=== PATIENT | female | born 1990 | race Caucasian/White ===

== ENCOUNTER → 2017-10-25 13:37 | Outpatient (CLI) | payer SELFPAY ==
--- NOTE | 2017-10-25 13:42 | STE_ITS ---
Reason For Study: Chest Pain Stress Results Protocol: Ba Protocol Maximum Predicted HR: 194 bpm Target HR: 165 bpm% Max imum Predicted HR: 98 % DurationHeart Rate Stage (mm:ss) (bpm) BP Baseline 83 120/72 Ba Protocol Stage I 3:00 14 4 124/70 Ba Protocol Stage II 3:00 16 4 134/70 Ba Protocol Stage III 3:00 19 0 138/64 Recovery 115 122/8 0 Stress Duration: 9:00 mm:ss Maximum Stress HR: 190 bpmM ETS: 10 Baseline Echocardiogram Findings Stress Echo Wall motion Data Resting WMIntermediate WMStress WM Resting Wall Motion Wall Motion Stress No regional wall motion No regional wall motion abnormalities noted. abnormalities noted. Ejection Fraction 55 %. Ejection Fraction 70 %. EKG Data Baseline ECG demonstrates normal sinus rhythm with a rate of 84 beats per minute. Normal intervals are noted. The resting blood pressure was 120/72. The patient exercised according to the regular Ba protocol for a total duration of 9 minutes. The maximum heart rate attained was 190 beats per minute. The patient exercised into stage 3 of the Ba protocol. During stress, there were no ST or T wave changes noted to suggest ischemia. At peak exercise, upsloping ST changes only were noted, which did not meet the criteria for ischemia. The peak blood pressure was 152/60. No arrhythmias noted. No clinical angina was noted. Interpretation Summary Normal resting LV systolic function. Nonstenotic valves. With stress, the LV size decreased and all segments augmented normally. The LVEF increased from 55% to 75%. Negative for ischemia at 97% of MPHR and at 10.1 METS. Good blood pressure response to exrcise Terminated due to fatigue Ordering Physician: Mick Earl MD Referring Physician: Azar Smith Performed By: Mesha Sol, ROXANA
== END ==
PROVIDERS: PCP Family Medicine; Visit Provider Family Medicine
DX: R07.9 Chest pain, unspecified (principal)
CPT/HCPCS: 93017; 93350

== ENCOUNTER 2017-12-19 11:14 | Emergency (ER) | payer MEDICAID, SELFPAY ==
[2017-12-19 11:14] VITALS: BP 127/89; PULSE 95; RESP 16; TEMP 36.7; O2SAT 97; BMI 34.5
--- NOTE | 2017-12-19 11:40 | ED.DCSUM_ITS ---
- ER Visit Summary Date of Service: 12/19/17 Chief Complaint: Dental pain [] History of Present Illness: The patient is a 27 F [presents to the emergency department with dental pain that started 4 days ago. Patient states that she has been using Tylenol, ibuprofen, naproxen which initially helped but now she is having continued pain. Patient denies any fevers. Patient does not have a dentist. Patient denies any trauma to her teeth.] Physical Examination: [HEENT-PERRLA, EOMI. Cranial nerves II through XII grossly intact. TMs clear. Mucous membranes moist. No adenopathy. Dentition- patient has broken and carried left lower first and second molars that are tender to palpation. No gingival erythema or abscess noted. No adenopathy. No facial cellulitis. Cardiovascular-regular rate and rhythm without murmur or ectopy Lungs-clear to auscultation, chest wall stable without crepitus or subcu emphysema Abdomen-normoactive bowel sounds, soft, nontender, no rebound or rigidity, no peritoneal signs. Extremities-intact ?4, normal range of motion, normal pulses, atraumatic] Test Results: [None indicated] Emergency Department Course and Treatment: [] Treatment Plan: [Patient will be started on amoxicillin and [place] for pain. Patient given dentist referrals.] Disposition: [Discharged home in stable condition] Impression: [Dental pain/dental caries] This note was generated with [employer] dictation software. It may contain incorrect words, spelling, and punctuation that were not noted in review of the chart prior to signing ED Disposition - Plan for ED Patient: Chief Complaint: Dental Referrals: Azar Smith MD [Primary Care Provider] -
--- NOTE | 2017-12-19 11:40 | ED.DEP ---
ED Disposition - Plan for ED Patient: Chief Complaint: Dental Instructions: ED Tooth Pain, ED Cavity Dental Prescriptions: Hydrocodone Bitart/Apap 5-325 [[place] 5/325] 1 - 2 tab PO Q4H PRN PRN 3 Days #12 tab PRN Reason: Pain Amoxicillin 500 mg PO TID #30 tab Referrals: Azar Smith MD [Primary Care Provider] - Additional Instructions: see a dentist
--- NOTE | 2017-12-19 11:44 | DCINST.ED_ITS ---
ED Disposition - Plan for ED Patient: Chief Complaint: Dental Instructions: ED Tooth Pain, ED Cavity Dental Prescriptions: Hydrocodone Bitart/Apap 5-325 [[place] 5/325] 1 - 2 tab PO Q4H PRN PRN 3 Days #12 tab PRN Reason: Pain Amoxicillin 500 mg PO TID #30 tab Referrals: Azar Smith MD [Primary Care Provider] - Additional Instructions: see a dentist
== END 2017-12-19 11:54 | disposition home or self-care (01) ==
PROVIDERS: Emergency Provider Emergency Medicine; PCP Family Medicine
DX: K02.9 Dental caries, unspecified (principal); K08.89 Other specified disorders of teeth and supporting structures; Z72.0 Tobacco use
CPT/HCPCS: 99282

== ENCOUNTER 2018-02-09 23:49 | Emergency (ER) | payer MEDICAID, SELFPAY ==
[2018-02-09 23:53] VITALS: BP 135/98; PULSE 94; RESP 16; TEMP 36.8; O2SAT 97; BMI 34.5
--- NOTE | 2018-02-10 00:35 | ED.VISSUMM ---
- ER Visit Summary Date of Service: 02/10/18 Chief Complaint: Right eye pain status post trauma History of Present Illness: The patient is a 27 F who states her child poked her in the eye. She complains of pain. She complains of blurred vision and photophobia. She denies history of glaucoma, diabetes or prior injury. She denies any loss of vision. Physical Examination: Blood pressure slightly elevated 133/98. Pupils equal round reactive. Extra muscle intact. There is photophobia to direct light but not consensual light. There is no floor seen in the department and limits slit-lamp examination. There is a corneal abrasion noted. There is no flare or cells no the anterior chamber. There is no subconjunctival hemorrhage noted. There is no pain with movement of the eye. There is no evidence of trauma to the lid or lashes. Test Results: No tests were obtained Emergency Department Course and Treatment: She was treated with acute aerobic ophthalmic drops for pain Treatment Plan: Eyedrops for pain and follow-up with ophthalmology if no improvement in 2-3 days Disposition: Discharged to home Impression: Corneal abrasion secondary to blunt trauma This note was generated with [employer] dictation software. It may contain incorrect words, spelling, and punctuation that were not noted in review of the chart prior to signing ED Disposition - Plan for ED Patient: Disposition: Home or Assisted Living Chief Complaint: Eye Problem Instructions: ED Eye Injury Corneal Abrasion Referrals: Azar Smith MD [Primary Care Provider] - As Needed Avinash Mcgill MD [STAFF PHYSICIAN] - 3-5 Days if not improving Additional Instructions: Instill 1 drop of pain medication right eye 4 times a day for 3-5 days for pain relief.........
--- NOTE | 2018-02-10 00:40 | ED.DCSUM_ITS ---
- ER Visit Summary Date of Service: 02/10/18 Chief Complaint: Right eye pain status post trauma History of Present Illness: The patient is a 27 F who states her child poked her in the eye. She complains of pain. She complains of blurred vision and photophobia. She denies history of glaucoma, diabetes or prior injury. She denies any loss of vision. Physical Examination: Blood pressure slightly elevated 133/98. Pupils equal round reactive. Extra muscle intact. There is photophobia to direct light but not consensual light. There is no floor seen in the department and limits slit- lamp examination. There is a corneal abrasion noted. There is no flare or cells no the anterior chamber. There is no subconjunctival hemorrhage noted. There is no pain with movement of the eye. There is no evidence of trauma to the lid or lashes. Test Results: No tests were obtained Emergency Department Course and Treatment: She was treated with acute aerobic ophthalmic drops for pain Treatment Plan: Eyedrops for pain and follow-up with ophthalmology if no improvement in 2-3 days Disposition: Discharged to home Impression: Corneal abrasion secondary to blunt trauma This note was generated with [employer] dictation software. It may contain incorrect words, spelling, and punctuation that were not noted in review of the chart prior to signing ED Disposition - Plan for ED Patient: Disposition: Home or Assisted Living Chief Complaint: Eye Problem Instructions: ED Eye Injury Corneal Abrasion Referrals: Azar Smith MD [Primary Care Provider] - As Needed Avinash Mcgill MD [STAFF PHYSICIAN] - 3-5 Days if not improving Additional Instructions: Instill 1 drop of pain medication right eye 4 times a day for 3-5 days for pain relief.........
--- NOTE | 2018-02-10 00:42 | ED.VISSUMM ---
- ER Visit Summary Date of Service: 02/10/18 Chief Complaint: [] History of Present Illness: The patient is a 27 F [] Physical Examination: [] Test Results: [] Emergency Department Course and Treatment: [] Treatment Plan: [] Disposition: [] Impression: [] This note was generated with [employer] dictation software. It may contain incorrect words, spelling, and punctuation that were not noted in review of the chart prior to signing ED Disposition - Plan for ED Patient: Disposition: Home or Assisted Living Chief Complaint: Eye Problem Instructions: ED Eye Injury Corneal Abrasion Prescriptions: Ketorolac Tromethamine [Acular] 1 drp OPHTHALMIC 4X/DAY #1 drops Referrals: Avinash Mcgill MD [STAFF PHYSICIAN] - 3-5 Days if not improving Azar Smith MD [Primary Care Provider] - As Needed Additional Instructions: Instill 1 drop of pain medication right eye 4 times a day for 3-5 days for pain relief.........
--- NOTE | 2018-02-10 00:50 | ED.DCSUM_ITS ---
- ER Visit Summary Date of Service: 02/10/18 Chief Complaint: [] History of Present Illness: The patient is a 27 F [] Physical Examination: [] Test Results: [] Emergency Department Course and Treatment: [] Treatment Plan: [] Disposition: [] Impression: [] This note was generated with [employer] dictation software. It may contain incorrect words, spelling, and punctuation that were not noted in review of the chart prior to signing ED Disposition - Plan for ED Patient: Disposition: Home or Assisted Living Chief Complaint: Eye Problem Instructions: ED Eye Injury Corneal Abrasion Prescriptions: Ketorolac Tromethamine [Acular] 1 drp OPHTHALMIC 4X/DAY #1 drops Referrals: Avinash Mcgill MD [STAFF PHYSICIAN] - 3-5 Days if not improving Azar Smith MD [Primary Care Provider] - As Needed Additional Instructions: Instill 1 drop of pain medication right eye 4 times a day for 3-5 days for pain relief.........
[2018-02-10 01:18] VITALS: RESP 18
== END 2018-02-10 01:18 | disposition home or self-care (01) ==
PROVIDERS: Emergency Provider Emergency Medicine; PCP Family Medicine
DX: S05.01XA Injury of conjunctiva and corneal abrasion without foreign body, right eye, initial encounter (principal); W50.0XXA Accidental hit or strike by another person, initial encounter; Y93.89 Activity, other specified; Y92.009 Unspecified place in unspecified non-institutional (private) residence as the place of occurrence of the external cause; Y99.8 Other external cause status
CPT/HCPCS: 99282

== ENCOUNTER 2018-04-20 09:00 | Emergency (ER) | payer MEDICAID, SELFPAY ==
[2018-04-20 09:00] VITALS: BP 122/78; PULSE 110; RESP 18; TEMP 36.6; O2SAT 98; BMI 32.9
--- NOTE | 2018-04-20 09:13 | ED.VISSUMM ---
- ER Visit Summary Date of Service: 04/20/18 Chief Complaint: Right upper jaw and right last molar pain History of Present Illness: The patient is a 27 F no significant past medical history. She has had multiple prior surgeries including C-sections, cholecystectomy and prior thoracotomy for a benign chest cavity mass. Patient had extensive dental work done by immediate dent in [place]. States the last 8 days she has had right upper jaw last molar pain. Denies any trauma. Denies any fever. No drainage. Physical Examination: Well-appearing young female accompanied by 2 small children. Vital signs are stable afebrile. HEENT exam right ear and tympanic membrane are normal. I had the patient open and close her mouth and I do not feel any popping or clicking of the right TMJ. It is not tender or swollen. She has normal opening and closing of her mouth. No malocclusion. Patient has multiple missing molars and premolars. Otherwise the teeth that she have appear to be in good condition. Multiple have feelings. The right last upper molar appears to be in good shape. There are no obvious cavities. No gum swelling. No signs of otherwise her mouth is unremarkable. The gums and soft tissues are unremarkable. Neck nontender no lymphadenopathy. Lungs are clear to auscultation. Heart regular rhythm no murmur. Otherwise exam unremarkable. Test Results: None Emergency Department Course and Treatment: Patient with 8-day history of right upper jaw dental pain. I do not see any obvious abnormality on exam. There are no signs of infection. She is already on naproxen. I did explain to her that I did not think narcotics would be a good option. Treatment Plan: She will ice to the jaw. Continue on her naproxen for pain. Follow-up with her dentist. Clinically I do not believe this to be TMJ she wants oral surgeon. Disposition: Discharge Impression: Acute right upper jaw and dental pain of uncertain etiology This note was generated with [employer] dictation software. It may contain incorrect words, spelling, and punctuation that were not noted in review of the chart prior to signing ED Disposition - Plan for ED Patient: Chief Complaint: Dental Referrals: Azar Smith MD [Primary Care Provider] -
--- NOTE | 2018-04-20 09:16 | ED.DEP ---
ED Disposition - Plan for ED Patient: Disposition: Home or Assisted Living Chief Complaint: Dental Instructions: ED Tooth Pain Referrals: Mehrdad Barahona DDS [STAFF PHYSICIAN] - Additional Instructions: Ice to your jaw. Continue naproxen and also Tylenol for pain. Next Call and follow-up with your dentist and/or an oral surgeon.
== END 2018-04-20 09:23 | disposition home or self-care (01) ==
PROVIDERS: Emergency Provider Emergency Medicine; PCP Family Medicine
DX: R68.84 Jaw pain (principal); K08.89 Other specified disorders of teeth and supporting structures; Z72.0 Tobacco use
CPT/HCPCS: 99283

== ENCOUNTER 2018-11-14 14:35 | Emergency (ER) | payer MEDICAID, SELFPAY ==
[2018-11-14 14:36] VITALS: BP 150/68; PULSE 109; RESP 16; TEMP 37; O2SAT 98; BMI 34.4
--- NOTE | 2018-11-14 15:57 | CT_ITS ---
STUDY: CT ABDOMEN AND PELVIS WITH CONTRAST REASON FOR EXAM: Female, 27 years old. Abdominal pain RADIATION DOSAGE (If Supplied By Facility): CTDIvol = ( 17.08 ) mGy, DLP = ( 1091.37 ) mGycm TECHNIQUE: Transaxial images were obtained from the dome of the diaphragm to the symphysis pubis with oral contrast. Isovue 300 100ML IV/Oral was administered. Sagittal and coronal images were reconstructed. Individualized dose optimization techniques were used for this CT. COMPARISON: None. FINDINGS: The visualized lung bases are unremarkable. The visualized portions of the heart are within normal limits. Mild intrahepatic biliary ductal dilation. Mild dilation of common bile duct with There are measuring roughly 1 cm. Nonvisualized gallbladder. Normal spleen. Normal pancreas. Normal bilateral adrenal glands. Normal right kidney. Normal left kidney. Normal visualized stomach. Normal small intestine. Normal colon. The appendix is visualized and appears normal. Normal abdominal aorta. Normal inferior vena cava. Normal retroperitoneum. Normal urinary bladder. Unremarkable uterus with IUD in the endometrium Tiny fat-containing right inguinal hernia. Normal osseous structures. CT/Abdomen/Pelvis WITH Contrast IMPRESSION: Status post cholecystectomy. Mild intrahepatic bile duct dilation and mild dilation of the common bile duct, not unusual for patient who is status post cholecystectomy. No acute findings. Electronically Signed: Musa Osullivan DO at 18:45 EDT Tel , Service support ,
--- NOTE | 2018-11-14 16:01 | ED.VISSUMM ---
- ER Visit Summary Date of Service: 11/14/18 Chief Complaint: Pelvic pain History of Present Illness: The patient is a 27 F who reports onset of pelvic cramping last evening. She states her last menstrual cycle was 1 week ago. She was seen at her GYNs office this afternoon. Pelvic exam was done along with an ultrasound. She was sent to the ED. She reported had a temperature 100.0. I have the nurse practitioner on page now to discuss her exam findings. Patient reports decreased appetite and some mild nausea. Past history significant for resting tachycardia and depression. She has had prior cholecystectomy and 4 prior C-sections. She does have an IUD. Physical Examination: Vital signs unremarkable. Patient's temperature is 98.6. Patient is resting comfortably no acute distress. Heart is regular rhythm but slightly tachycardic. Lungs sounds are clear. Abdomen is soft with tenderness in the right lower quadrant. There is no guarding or rebound at this time. Hypoactive bowel sounds are noted. Test Results: CBC was white count of 14.9 with normal differential. Chemistry studies unremarkable. test negative. Urine was checked at her [facility] [employer] [facility] office and was normal. CT abdomen pelvis with p.o. and IV contrast shows no acute findings. Emergency Department Course and Treatment: Patient was given morphine, Zofran, and IV fluids here. I did speak with Leana Reed, the nurse practitioner who saw the patient in the [facility] office. She states that the ultrasound of the pelvis done there showed a normal right ovary. Test results were discussed with patient. She will be given pain and nausea meds for home. She is to return for worsening pain or fever. Treatment Plan: [] Disposition: Discharge Impression: Abdominal pain, uncertain etiology This note was generated with [employer] dictation software. It may contain incorrect words, spelling, and punctuation that were not noted in review of the chart prior to signing ED Disposition - Plan for ED Patient: Disposition: Home or Assisted Living Instructions: ED Abdominal Pain Unkn Cause Prescriptions: Hydrocodone Bitart/Apap 5-325 [[place] 5MG-325MG] 1 tablet PO Q6H PRN PRN 3 Days #10 tablet PRN Reason: Pain Ondansetron [Zofran Odt] 4 mg PO Q8H PRN PRN #10 tablet PRN Reason: Nausea Referrals: Azar Smith MD [Primary Care Provider] - 1 Week
[2018-11-14] MEDS: 0.9% Normal Saline 1,000 ML 150 ML IV (16:20)
[2018-11-14] MEDS: Morphine 4 MG/ML Syringe IV ×2 (16:21→19:15)
[2018-11-14] MEDS: Ondansetron 4 MG/2 ML Vial IV ×2 (16:21→19:15)
[2018-11-14 16:22] VITALS: BP 134/84; PULSE 92; RESP 16; TEMP 36.8; O2SAT 97
[2018-11-14 16:44] LABS: Anion Gap 4 (5-15); BUN 11 mg/dL (7-18); BUN/Creat Ratio 19.4 RATIO (10-20); Calcium,Total 8.6 mg/dL (8.5-10.1); Chloride 109 mmol/L (98-107); Creatinine, Serum 0.57 mg/dL (0.55-1.02); EST Glomerular Filtration Rate 135 mL/min (>60); Est Glom Filt Rate - Afr Amer 163 mL/min (>60); Estimated Creatinine Clearance 117.25 ml/min; Glucose 84 mg/dL (74-106); Potassium 4.2 mmol/L (3.5-5.1); Sodium Level 137 mmol/L (136-145)
[2018-11-14 16:47] LABS: Absolute Lymphocyte Count 3.65 X10^3/ul (0.83-4.51); Absolute Neutrophil Count 10.3 X10^3/uL (2.0-7.7); Basophil# 0.04 X10^3/uL; Basophil% 0.3 % (0-1); Eosinophil# 0.12 X10^3/uL; Eosinophils% 0.8 % (0-5); Hematocrit 42.7 % (37-47); Hemoglobin 13.7 g/dl (12.0-15.0); Lymphocyte # 3.65 X10^3/ul (4.0); Lymphocyte % 24.6 % (19-41); Mean Corp Hgb Conc 32.1 g/gl (32-36); Mean Corpuscular Hgb 25.3 pg (27.0-32.0); Mean Corpuscular Volume 78.8 fL (81-99); Mean Platelet Vol. 10.6 fl (6.2-12.0); Monocyte# 0.75 X10^3/uL; Neutrophil # 10.26 X10^3/uL (2.7-7.7); Platelet Count 310 K/mm3 (150-450); RBC Distribution Width SD 47.9 fl (35.1-43.9); Red Blood Count 5.42 M/mm3 (4.2-5.4); White Blood Count 14.9 K/mm3 (4.4-11.0)
[2018-11-14 16:48] LABS: POSITIVE COUNT NO; POSITIVE DIFFERENTIAL NO; POSITIVE MORPHOLOGY NO
[2018-11-14] MEDS: proMETHazine 25 MG/ML Syringe 12.5 MG IV (17:01)
[2018-11-14 17:53] VITALS: BP 124/72; BP 127/72; PULSE 90; RESP 16; TEMP 36.7; O2SAT 98
[2018-11-14 18:11] LABS: Pregnancy, Serum, hCG Quali. NEGATIVE Negative (0-9 Nonpreg)
[2018-11-14 18:21] VITALS: BP 127/72; PULSE 90; RESP 17; TEMP 36.7; O2SAT 98
[2018-11-14 19:16] VITALS: RESP 18
--- NOTE | 2018-11-14 20:20 | DCINST.ED_ITS ---
ED Disposition - Plan for ED Patient: Disposition: Home or Assisted Living Instructions: ED Abdominal Pain Unkn Cause Prescriptions: Hydrocodone Bitart/Apap 5-325 [[place] 5MG-325MG] 1 tablet PO Q6H PRN PRN 3 Days #10 tablet PRN Reason: Pain Ondansetron [Zofran Odt] 4 mg PO Q8H PRN PRN #10 tablet PRN Reason: Nausea Referrals: Azar Smith MD [Primary Care Provider] - 1 Week
[2018-11-14 20:36] VITALS: BP 120/67; PULSE 80; RESP 16; TEMP 37; O2SAT 97
== END 2018-11-14 20:38 | disposition home or self-care (01) ==
PROVIDERS: Emergency Provider Emergency Medicine; PCP Family Medicine
DX: R10.9 Unspecified abdominal pain (principal); R11.0 Nausea; R10.2 Pelvic and perineal pain; F32.9 Major depressive disorder, single episode, unspecified; Z72.0 Tobacco use
CPT/HCPCS: 74177; 80048; 84703; 85025; 96361; 96374; 96375; 96376; 99282; J7030; Q9967; J2405

== ENCOUNTER 2019-05-08 11:39 | Emergency (ER) | payer MEDICAID, SELFPAY ==
[2019-05-08 11:40] VITALS: BP 132/72; PULSE 111; RESP 17; TEMP 36.6; O2SAT 98; BMI 37.0
--- NOTE | 2019-05-08 11:51 | US_ITS ---
STUDY: ULTRASOUND TRANSVAGINAL CLINICAL: Female, 28 years old. Vaginal bleed TECHNIQUE: Transvaginal COMPARISON: November 14, 2018 CT scan abdomen and pelvis FINDINGS: Normal uterine size measuring 194 x 5.7 x 4.2 cm in maximal craniocaudal dimension. There are no myometrial masses. An IUD present. The IUD appears to be in the lower uterine segment. When compared to the prior study this has migrated since prior study. Normal endometrial thickness measuring 9 mm. There are no endometrial masses, and there is no fluid in the endometrial cavity. Normal uterine cervix. Normal right ovary, measuring 2.8 x 2.9 x 1.7 cm. There are multiple follicles without a dominant cyst. Normal left ovary, measuring 3.2 x 2.3 x 2.3 cm. There are multiple follicles without a dominant cyst. The seen on the transabdominal imaging only. There is no free fluid in the pelvis. Polycystic ovary disease: No. US/Transvaginal Non- IMPRESSION: Interval migration of the IUD into the lower uterine segment. Electronically Signed: Estefania Lacy MD at 15:27 EDT Tel , Service support ,
[2019-05-08] MEDS: Acetaminophen 500 MG Tablet 1000 MG PO (12:05)
[2019-05-08 12:25] LABS: Internal QC Validated? YES +Cl - CLEAR BKGD; Pregnancy, Urine Negative Negative
[2019-05-08 12:30] LABS: Color, Urine Yellow (Yellow); Glucose, Dipstick Normal (Normal); Ketone-Dipstick 5 mg/dl (Negative); Leukocyte Esterase-Dipstick 25 /ul (Negative); Nitrite-Dipstick Negative (Negative); Occult Blood-Urine 250 /ul (Negative); Protein-Dipstick 30 mg/dl (Negative); Specific Gravity, Urine 1.025 (1.002-1.030); Urine Bilirubin Dipstick Negative (Negative); Urine Clarity Sl. Cloudy (Clear); Urine Urobilinogen Normal (Normal)
[2019-05-08 12:40] LABS: Bacteria 1+ /hpf (None Seen); Mucous, Urine 1+ /hpf (<or=2+); Red Blood Cells-Urine 25-50 SEEN /hpf (0-5); Squamous Epithelial Cells - UA 0-5 SEEN /hpf (5-10); White Blood Cells 0-5 SEEN /hpf (0-5)
--- NOTE | 2019-05-08 12:47 | ED.VISSUMM ---
- ER Visit Summary Date of Service: 05/08/19 Chief Complaint: Pain, vaginal bleeding History of Present Illness: The patient is a 28 F who has been having pelvic pain that started earlier today. She has sharp pain in her suprapubic area radiate. Nothing makes it better or worse. She has some spotting vaginally today which is unusual for her. Her normal menstrual cycle was on the first of this month. She has nonspecific bleeding. No vaginal discharge. No urinary symptoms. She is G5, P4 Ab1. She currently has ParaGard as well Physical Examination: Vital signs reviewed. HEENT exam unremarkable. Heart is regular rate and rhythm without murmurs. Lungs are clear to auscultation. Abdomen is soft with suprapubic tenderness to palpation. Vaginal exam is deferred.. Extremities reveal no edema. Skin exam normal. Neurologic exam normal. Test Results: White blood cell count 12.5. Trace leukocytes and blood on her urinalysis. Pelvic ultrasound reveals migration of her IUD to the lower uterine segment but otherwise is unremarkable. Emergency Department Course and Treatment: Patient was given Toradol for pain. She feels better. I am unclear the etiology of her pain. I feel she can be discharged home to follow-up with her OB. I will give her naproxen for pain at home. Treatment Plan: [] Disposition: Discharge Impression: Pelvic pain This note was generated with [employer] dictation software. It may contain incorrect words, spelling, and punctuation that were not noted in review of the chart prior to signing ED Disposition - Plan for ED Patient: Referrals: Azar Smith MD [Primary Care Provider] -
[2019-05-08 13:09] LABS: Absolute Lymphocyte Count 3.45 X10^3/uL (0.83-4.51); Absolute Neutrophil Count 8.2 X10^3/uL (2.0-7.7); Basophil# 0.06 X10^3/uL; Basophil% 0.5 % (0-1); Eosinophil# 0.13 X10^3/uL; Hematocrit 42.3 % (37-47); Hemoglobin 13.1 g/dL (12.0-15.0); Lymphocyte # 3.45 X10^3/ul (4.0); Lymphocyte % 27.5 % (19-41); Mean Corpuscular Hgb 24.5 pg (27.0-32.0); Mean Corpuscular Volume 79.2 fL (81-99); Mean Platelet Vol. 9.9 fl (6.2-12.0); Monocyte# 0.66 X10^3/uL; Monocyte% 5.3 % (0-10); NRBC Flagged by Analyzer 0 % (0-5); Neutrophil % 65.5 % (47-70); Platelet Count 319 K/mm3 (150-450); RBC Distribution Width CV 17.1 % (11.6-14.6); RBC Distribution Width SD 47.3 fl (35.1-43.9); Red Blood Count 5.34 M/mm3 (4.2-5.4); White Blood Count 12.5 K/mm3 (4.4-11.0)
[2019-05-08] MEDS: Ketorolac 30 MG/ML Syringe IV (13:30)
[2019-05-08 14:25] VITALS: BP 115/73; PULSE 78; RESP 16; O2SAT 97
--- NOTE | 2019-05-08 15:34 | ED.DEP ---
ED Disposition - Plan for ED Patient: Disposition: Home or Assisted Living Instructions: PELVIC PAIN, Unknown Cause Prescriptions: Naproxen [Naprosyn] 500 mg PO BID PRN #20 tab Prescription Printed Referrals: Azar Smith MD [Primary Care Provider] -
== END 2019-05-08 15:59 | disposition home or self-care (01) ==
PROVIDERS: Emergency Provider Emergency Medicine; PCP Family Medicine
DX: R10.2 Pelvic and perineal pain (principal); Z72.0 Tobacco use
CPT/HCPCS: 36415; 76830; 81001; 81025; 85025; 96374; 99282; A4216

== ENCOUNTER 2019-05-09 21:51 | Emergency (ER) | payer MEDICAID, SELFPAY ==
[2019-05-08 11:40] VITALS: BMI 37.0
[2019-05-09 21:51] VITALS: BP 130/87; PULSE 108; RESP 18; TEMP 37.1; O2SAT 99; BMI 36.5
--- NOTE | 2019-05-09 21:58 | CT_ITS ---
STUDY: CT ABDOMEN AND PELVIS WITH CONTRAST REASON FOR EXAM: Female, 28 years old. Right lower quadrant and pelvic pain. Nausea. Elevated white blood count. RADIATION DOSAGE (If Supplied By Facility): CTDIvol = ( 17.98 ) mGy, DLP = ( 1192.21 ) mGycm TECHNIQUE: Transaxial images were obtained from the dome of the diaphragm to the symphysis pubis with oral contrast. 100ML IV/Oral Isovue 300 was administered. Sagittal and coronal images were reconstructed. Individualized dose optimization techniques were used for this CT. COMPARISON: November 14, 2018. Pelvic ultrasound May 08, 2019. FINDINGS: Calcified right middle lobe lung nodule. The visualized portions of the heart are within normal limits. Normal liver. There are surgical clips in the gallbladder fossa consistent with a prior cholecystectomy. Normal spleen. Normal pancreas. Normal bilateral adrenal glands. Normal right kidney. Normal left kidney. Artifact from a 2 mm metallic density along the anterior margin proximal aspect of the right 12th posterior rib, unchanged and well seen on the operations research engineer view. Normal visualized stomach. Normal small intestine. Normal colon. The appendix is well visualized and appears normal. Normal abdominal aorta. Normal inferior vena cava. Normal retroperitoneum. No intra-abdominal free air. Normal urinary bladder. Normal visualized uterus. No adnexal mass is seen. Normal abdominal wall. Normal osseous structures. CT/Abdomen/Pelvis WITH Contrast IMPRESSION: No acute findings in the abdomen or pelvis. No evidence of bowel obstruction. Normal appendix. Old granulomatous disease. 2 mm metallic density adjacent to the proximal portion of the right 12th posterior rib unchanged. Electronically Signed: Pedro Roche MD at 0:29 EDT , Service support ,
--- NOTE | 2019-05-09 22:01 | ED.VIS.GEN ---
History of Present Illness Chief Complaint: Female C/O Informant: Patient Onset: Yesterday Context: Gradual Onset Timing: Continuous Current Severity: Moderate Maximum Severity: Severe Narrative: The patient presents to the emergency department with pelvic pain. Patient states that she has had pelvic pain for the past few days. She was actually seen here yesterday. That point, her ultrasound showed that her IUD had migrated. She followed up with [facility] today. She had her IUD removed. Since then, her pain is worsened. She feels that she is getting a lot of spasm and the pain has migrated to her bilateral lower quadrants. She does describe nausea. She denies any vomiting. She is otherwise been in her normal state of health. The patient has had 4 C-sections in the past. She is also had prior cholecystectomy. Prior similar symptoms: Yes Recent Illness/Hospitalization: No Past Medical History - Allergies and Home Meds Allergies/Adverse Reactions: Allergies gentamicin [Gentamicin] Allergy (Unknown, Verified 05/08/19 11:40) Other HEARING LOSS Primary Care Physician: Azar Smith MD [Primary Care Provider] - Prior records reviewed: Yes Surgical History: cholecystectomy, - - Smoking Status: Current every day smoker Review of Systems General: Denies: Chills, Fever, Sweats Eyes: Denies: Visual changes - bilaterally, Diplopia ENT: Denies: Rhinorrhea, Sore throat Cardiovascular: Denies: Chest pain, Palpitations Respiratory: Denies: Dyspnea, Cough, Dyspnea on exertion Gastrointestinal: Reports: Abdominal pain, Nausea. Denies: Vomiting, Diarrhea, Melena, Hematochezia Genitourinary: Denies: Dysuria, Hematuria, Frequency Musculoskeletal: Denies: Back pain, Extremity Pain Skin: Denies: Rash, Wounds Neurological: Denies: Headache, Weakness, Numbness Physical Exam Vital Signs/Narrative: Vital Signs Temp Pulse Resp BP Pulse Ox 05/09/19 21:51 98.8 F 108 H 18 130/87 H 99 Inital Vital Signs reviewed: Yes General: Well nourished, Well developed, No Acute Distress Head: Normocephalic, Atraumatic Eyes: Perrl, EOMI ENT: Moist mucous membranes, No rhinorrhea Neck: Supple, Nontender Cardiovascular: Regular rate, Regular rhythm, No murmurs Respiratory: No distress, CTA bilaterally, Chest nontender Abdomen: Soft, Nondistended, Normal bowel sounds, Tender. Negative for: Guarding, Rebound tenderness, Hyperactive bowel sounds Back: Nontender, Normal Inspection Extremities: Nontender, No edema Skin: Normal color, No rash Neurological: Alert, Oriented x3, Cranial nerves II-XII grossly intact, Normal Strength, Normal Sensation Psychological: Normal affect, Normal Mood Diagnostic/Tx/Re-eval Abnormal Lab Results 05/09/19 05/09/19 22:10 22:10 WBC 14.4 H RBC 5.51 H Hgb 14.0 Hct 43.8 MCV 79.5 L MCH 25.4 L MCHC 32.0 RDW Std Deviation 47.2 H RDW Coeff of Anjana 16.7 H Plt Count 356 MPV 9.9 Immature Gran % (Auto) 0.400 Neut % (Auto) 57.8 Lymph % (Auto) 35.3 Mckean % (Auto) 4.9 Eos % (Auto) 1.3 Baso % (Auto) 0.3 Absolute Neuts (auto) 8.3 H Absolute Lymphs (auto) 5.09 H Nucleated RBC % 0 Sodium 139 Potassium 3.8 Chloride 107 Carbon Dioxide 26.0 Anion Gap 6 BUN 10 Creatinine 0.66 Estim Creat Clear Calc 91.15 Est GFR (MDRD) Af Amer 137 Est GFR (MDRD) Non-Af 113 BUN/Creatinine Ratio 15.2 Glucose 81 Calcium 9.0 - Medical Decision Making Patient presents with pelvic pain and worsening right lower quadrant pain. My suspicion is that this is likely related to having her IUD removed, but I do want to rule out dangerous intra-abdominal process. Screening labs show mild leukocytosis which is chronic appearing. Patient will undergo CT imaging. Her symptoms have improved with treatment. This will be signed out to the night physician. Impression 1. Pelvic pain ED Disposition - Plan for ED Patient: Referrals: Azar Smith MD [Primary Care Provider] -
[2019-05-09] MEDS: 0.9% Normal Saline 1,000 ML 1000 ML IV (22:11)
[2019-05-09] MEDS: Ketorolac 30 MG/ML Syringe IV (22:12)
[2019-05-09] MEDS: Ondansetron 4 MG/2 ML Vial IV (22:12)
[2019-05-09] MEDS: Morphine 4 MG/ML Syringe IV (22:12)
[2019-05-09 22:34] LABS: Absolute Lymphocyte Count 5.09 X10^3/uL (0.83-4.51); Absolute Neutrophil Count 8.3 X10^3/uL (2.0-7.7); Basophil# 0.05 X10^3/uL; Basophil% 0.3 % (0-1); Eosinophil# 0.19 X10^3/uL; Eosinophils% 1.3 % (0-5); Hematocrit 43.8 % (37-47); Lymphocyte # 5.09 X10^3/ul (4.0); Lymphocyte % 35.3 % (19-41); Mean Corpuscular Hgb 25.4 pg (27.0-32.0); Mean Corpuscular Volume 79.5 fL (81-99); Mean Platelet Vol. 9.9 fl (6.2-12.0); Monocyte% 4.9 % (0-10); NRBC Flagged by Analyzer 0 % (0-5); Neutrophil # 8.32 X10^3/uL (2.7-7.7); Neutrophil % 57.8 % (47-70); POSITIVE DIFFERENTIAL YES; POSITIVE MORPHOLOGY YES; Platelet Count 356 K/mm3 (150-450); RBC Distribution Width CV 16.7 % (11.6-14.6); RBC Distribution Width SD 47.2 fl (35.1-43.9); Red Blood Count 5.51 M/mm3 (4.2-5.4); White Blood Count 14.4 K/mm3 (4.4-11.0)
[2019-05-09 22:36] LABS: Differential Indicated SCAN CRITERIA MET
[2019-05-09 22:39] LABS: Anion Gap 6 (5-15); BUN 10 mg/dL (7-18); BUN/Creat Ratio 15.2 RATIO (10-20); Chloride 107 mmol/L (98-107); Creatinine, Serum 0.66 mg/dL (0.55-1.02); EST Glomerular Filtration Rate 113 mL/min (>60); Est Glom Filt Rate - Afr Amer 137 mL/min (>60); Estimated Creatinine Clearance 91.15 ml/min; Glucose 81 mg/dL (74-106); Potassium 3.8 mmol/L (3.5-5.1); Sodium Level 139 mmol/L (136-145)
[2019-05-09] MEDS: proMETHazine 25 MG/ML Syringe 12.5 MG IV (22:41)
[2019-05-09] MEDS: Morphine 2 MG/ML Syringe IV (23:30)
[2019-05-09 23:43] LABS: Differential Comment SCANNED
[2019-05-09 23:57] LABS: Mucous, Urine 0 SEEN /hpf (<or=2+)
[2019-05-10 00:06] LABS: Color, Urine Yellow (Yellow); Glucose, Dipstick Normal (Normal); Ketone-Dipstick Negative (Negative); Leukocyte Esterase-Dipstick 25 /ul (Negative); Nitrite-Dipstick Negative (Negative); Occult Blood-Urine 250 /ul (Negative); Protein-Dipstick 15 mg/dl (Negative); Urine Bilirubin Dipstick Negative (Negative); Urine Clarity Sl. Cloudy (Clear); Urine Urobilinogen Normal (Normal)
[2019-05-10 00:10] LABS: Internal QC Validated? YES +Cl - CLEAR BKGD; Pregnancy, Urine Negative Negative
[2019-05-10 00:11] VITALS: BP 135/75; PULSE 89; RESP 16; O2SAT 98
[2019-05-10 00:11] LABS: Bacteria 1+ /hpf (None Seen); Squamous Epithelial Cells - UA 0-5 SEEN /hpf (5-10)
[2019-05-10 00:12] LABS: Red Blood Cells-Urine 5-10 SEEN /hpf (0-5); White Blood Cells 0-5 SEEN /hpf (0-5)
--- NOTE | 2019-05-10 00:42 | ED.DEP ---
ED Disposition - Plan for ED Patient: Disposition: Home or Assisted Living Diagnosis: Pelvic pain Instructions: PELVIC PAIN, Unknown Cause Referrals: Azar Smith MD [Primary Care Provider] -
== END 2019-05-10 00:52 | disposition home or self-care (01) ==
PROVIDERS: Emergency Provider Emergency Medicine; PCP Family Medicine
DX: R10.2 Pelvic and perineal pain (principal); F17.200 Nicotine dependence, unspecified, uncomplicated
CPT/HCPCS: 74177; 80048; 81001; 81025; 85025; 96361; 96374; 96375; 96376; 99283; J7030; Q9967; A4216; J2405

== ENCOUNTER → 2019-05-11 | Outpatient (CLI) | payer MEDICAID, SELFPAY ==
[2019-05-09 21:51] VITALS: BMI 36.5
[2019-05-11 14:52] LABS: Hematocrit 42.1 % (37-47); Hemoglobin 13.7 g/dL (12.0-15.0); Mean Corp Hgb Conc 32.5 g/dL (32-36); Mean Corpuscular Hgb 25.6 pg (27.0-32.0); Mean Corpuscular Volume 78.5 fL (81-99); Platelet Count 362 K/mm3 (150-450); RBC Distribution Width CV 16.4 % (11.6-14.6); RBC Distribution Width SD 46.3 fl (35.1-43.9); Red Blood Count 5.36 M/mm3 (4.2-5.4); White Blood Count 12.2 K/mm3 (4.4-11.0)
[2019-05-11 15:14] LABS: Thyroid Stim Hormone (TSH) 2.99 uIU/mL (0.358-3.74)
== END | disposition home or self-care (01) ==
LOC: LAB 14:08
PROVIDERS: PCP Family Medicine; Referring Provider Obstetrics & Gynecology; Visit Provider Obstetrics & Gynecology
DX: N93.9 Abnormal uterine and vaginal bleeding, unspecified (principal); R53.83 Other fatigue
CPT/HCPCS: 36415; 84443; 85027

== ENCOUNTER 2019-07-05 17:10 | Emergency (ER) | payer MEDICAID, SELFPAY ==
[2019-07-05 17:11] VITALS: BP 130/83; PULSE 104; RESP 16; TEMP 37.4; O2SAT 97; BMI 37.0
[2019-07-05 17:46] VITALS: BP 130/83; PULSE 104; RESP 16; TEMP 37.4; O2SAT 97
--- NOTE | 2019-07-05 17:48 | RAD_ITS ---
STUDY: X-RAY CHEST REASON FOR EXAM: Female, 28 years old. Cough TECHNIQUE: Frontal and lateral views of the chest. COMPARISON: 09/10/2017. FINDINGS: Stable surgical clips in the mediastinum. The lungs are clear and expanded. There is no demonstrated pleural abnormality. Normal size heart. Normal mediastinum and christa. Normal visualized pulmonary arteries. Normal visualized aortic arch and descending thoracic aorta. Normal visualized thoracic spine. Normal visualized ribs, clavicles, and shoulders. There is no demonstrated abnormality of the visualized soft tissue structures of the upper abdomen. RAD/Chest PA and Lateral IMPRESSION: No evidence for acute chest disease. Electronically Signed: Vinh Maurice MD at 18:02 EST , Service support ,
[2019-07-05] MEDS: Ipratropium/Albuterol Sulfate 3 ML AMPUL.NEB INHALATION (18:00)
[2019-07-05 18:05] VITALS: PULSE 96; RESP 20
[2019-07-05 18:13] VITALS: BP 130/83; PULSE 96; RESP 20; TEMP 37.4; O2SAT 97
--- NOTE | 2019-07-05 18:57 | ED.DCSUM_ITS ---
- ER Visit Summary Date of Service: 07/05/19 Chief Complaint: [Cough and shortness of breath] History of Present Illness: The patient is a 28 F [Robtz to the emergency department with a cough that started 3 to 4 days ago. Patient states that she is bringing up some sputum but she is swallowing it and does not see the color of it. She is had subjective fever at home. Patient was seen by her primary care physician yesterday and started on Tessalon Perles which seemed to help her cough. Today patient had some increasing shortness of breath and she comes in for evaluation. Patient states that before all the symptoms started she had vomiting for 3 days but that has since resolved. Patient states that all 4 of her kids at home have been sick with upper respiratory illnesses. Patient denies any chest pain. She denies recent travel or surgery.] Physical Examination: [HEENT-PERRLA, EOMI. Cranial nerves II through XII grossly intact. TMs clear. Mucous membranes moist. No adenopathy. Cardiovascular-regular rate and rhythm without murmur or ectopy Lungs-clear to auscultation, chest wall stable without crepitus or subcu emphysema. Patient did have an occasional faint expiratory wheeze noted. No accessory muscle use or retractions. Abdomen-normoactive bowel sounds, soft, nontender, no rebound or rigidity, no peritoneal signs. Extremities-intact ?4, normal range of motion, normal pulses, atraumatic] Test Results: [Chest x-ray obtained was normal.] Emergency Department Course and Treatment: [Patient was given a DuoNeb aerosol and had just minimal improvement with that.] Treatment Plan: [Patient to follow-up with her primary care physician within next 3 to 5 days. We discussed possibly starting an antibiotic however my suspicion is that her illness is likely viral and she would like to withhold from any antibiotics at this time and she will contact her primary care physician within the next several days to give an update on how she is feeling. Patient advised to return if increasing shortness of breath or conditions worsen anyway. Will be given an albuterol MDI for home.] Disposition: Discharged home in stable condition [] Impression: [Viral URI] This note was generated with [employer] software. It may contain incorrect words, spelling, and punctuation that were not noted in review of the chart prior to signing ED Disposition - Plan for ED Patient: Referrals: Azar Smith MD [Primary Care Provider] -
--- NOTE | 2019-07-05 18:59 | ED.DEP ---
ED Disposition - Plan for ED Patient: Instructions: URI, Viral, No Abx (Adult) Referrals: Azar Smith MD [Primary Care Provider] - 3-5 Days
[2019-07-05 19:10] VITALS: BP 131/89; PULSE 88; O2SAT 98
== END 2019-07-05 19:11 | disposition home or self-care (01) ==
PROVIDERS: Emergency Provider Emergency Medicine; PCP Family Medicine
DX: J06.9 Acute upper respiratory infection, unspecified (principal); Z72.0 Tobacco use
CPT/HCPCS: 71046; 94640; 99282

== ENCOUNTER 2019-11-19 15:57 | Emergency (ER) | payer MEDICAID, SELFPAY ==
[2019-11-19] VITALS (7 sets, daily range): BP systolic 112–139; BP diastolic 79–94; PULSE 94–112; RESP 16–19; TEMP 36.2–36.9; O2SAT 98–100; BMI 35.7
--- NOTE | 2019-11-19 16:21 | RAD_ITS ---
STUDY: X-RAY CHEST REASON FOR EXAM: Female, 28 years old. COUGH FEVER, SHORTNESS OF BREATH TECHNIQUE: Single AP portable view of the chest. COMPARISON: Prior study of 07/05/2019 FINDINGS: Surgical clips are seen in the mediastinum. The lungs are clear and expanded. There is no demonstrated pleural abnormality. Normal size heart. Normal mediastinum and christa. Normal visualized pulmonary arteries. Normal visualized aortic arch and descending thoracic aorta. Normal visualized thoracic spine. Normal visualized ribs, clavicles, and shoulders. There is no demonstrated abnormality of the visualized soft tissue structures of the upper abdomen. RAD/Chest 1 View (Portable) IMPRESSION: No acute cardiopulmonary disease process is seen. Chest findings are stable in the interval. Electronically Signed: Rene Vee MD at 16:47 EDT , Service support ,
--- NOTE | 2019-11-19 16:21 | EKG12_ITS ---
Test Reason : Blood Pressure : / mmHG Vent. Rate : 100 BPM Atrial Rate : 100 BPM P-R Int : 146 ms QRS Dur : 078 ms QT Int : 356 ms P-R-T Axes : 011 -02 006 degrees QTc Int : 459 ms Normal sinus rhythm Inferior infarct , age undetermined Cannot rule out Anterior infarct , age undetermined Abnormal ECG Confirmed by LEORA CANDELARIA, WALESKA ([id number]), editor school photograph JOHNNA GALINDO ([id number]) on 11/20/2019 1:38:07 PM Referred By: ABELARDO Confirmed By:WALESKA COREY MD
--- NOTE | 2019-11-19 16:45 | ED.DCSUM_ITS ---
- ER Visit Summary Date of Service: 11/19/19 Chief Complaint: Chest pain History of Present Illness: The patient is a 28 F who presents with chest pain that began today. Patient states the pain is sharp. Patient states the pain is localized to the left chest and radiates into her back. Patient states this is worse with exertion. Patient admits to some shortness of breath and cough. Patient states she had a temperature of 100.8 today. Patient states she took Tylenol prior to arrival. Patient admits to a sore throat. Patient states several family members have been having cough and fever at home. Physical Examination: Vital signs are stable except for mild tachycardia of 112. Patient is afebrile. Patient is in no acute distress. Oral mucosa is pink and moist. Neck is supple. Trachea is midline. There is no JVD noted. Heart was regular rate and rhythm. Lungs are clear and equal bilaterally. Abdomen is soft. Bowel sounds are normal. There is no tenderness. There is no rebound or guarding noted. Skin is warm dry. Cranial nerves II through XII are intact. There are no focal motor or sensory deficits noted. Extremities are intact. There is no calf tenderness or edema. Test Results: EKG showed normal sinus rhythm with a rate of 100. There are no acute ST or T wave changes. This was unchanged compared to previous EKG dated 09/10/2017. Portable chest x-ray was obtained. There is no acute cardiopulmonary process. CBC shows a mild leukocytosis of 15.2. Comprehensive metabolic profile was normal. Troponin was less than 0.015. Emergency Department Course and Treatment: Patient was given injection of Toradol and Zofran here. Patient still complained of persistent pain. Patient was given 1 dose of Verner here. Patient was instructed to drink plenty of fluids and get plenty of rest. Patient was instructed to self quarantine for 2 weeks. Patient was instructed to follow-up with her primary care physician in 5 to 7 days. Patient understood and was agreeable with the plan. All questions were answered. Disposition: Discharge home Impression: Viral upper respiratory infection This note was generated with [employer] software. It may contain incorrect words, spelling, and punctuation that were not noted in review of the chart prior to signing ED Disposition - Plan for ED Patient: Disposition: Home or Assisted Living Diagnosis: Viral upper respiratory infection Instructions: ED Upper Resp Infec No Abx Tx Referrals: [place],Azar, MD [Primary Care Provider] - 5-7 Days
[2019-11-19 16:56] LABS: Absolute Neutrophil Count 10.2 X10^3/uL (2.0-7.7); Basophil# 0.05 X10^3/uL; Basophil% 0.3 % (0-1); Eosinophil# 0.11 X10^3/uL; Eosinophils% 0.7 % (0-5); Hematocrit 42.2 % (37-47); Hemoglobin 13.9 g/dL (12.0-15.0); Mean Corp Hgb Conc 32.9 g/dL (32-36); Mean Corpuscular Hgb 25.6 pg (27.0-32.0); Mean Corpuscular Volume 77.7 fL (81-99); Mean Platelet Vol. 9.5 fl (6.2-12.0); Monocyte# 0.68 X10^3/uL; Monocyte% 4.5 % (0-10); NRBC Flagged by Analyzer 0 % (0-5); Neutrophil % 67.2 % (47-70); Platelet Count 327 K/mm3 (150-450); RBC Distribution Width CV 16.7 % (11.6-14.6); Red Blood Count 5.43 M/mm3 (4.2-5.4); White Blood Count 15.2 K/mm3 (4.4-11.0)
[2019-11-19 17:16] LABS: AST(SGOT) 19 U/L (15-37); Alanine Aminotransfer ALT/SGPT 22 U/L (13-56); Albumin, Serum 3.7 g/dL (3.2-5.0); Alkaline Phosphatase 99 U/L (45-117); Anion Gap 7 (5-15); BUN 10 mg/dL (7-18); BUN/Creat Ratio 15.5 RATIO (10-20); Chloride 108 mmol/L (98-107); Creatinine, Serum 0.65 mg/dL (0.55-1.02); EST Glomerular Filtration Rate 115 mL/min (>60); Est Glom Filt Rate - Afr Amer 140 mL/min (>60); Estimated Creatinine Clearance 92.56 ml/min; Globulin 3.7 g/dL (2.2-4.2); Glucose 91 mg/dL (74-106); Protein, Total 7.4 g/dL (6.4-8.2); Sodium Level 139 mmol/L (136-145)
[2019-11-19] MEDS: Ondansetron 4 MG/2 ML Vial IV (17:19)
[2019-11-19] MEDS: Ketorolac 30 MG/ML Syringe IV (17:21)
[2019-11-19] MEDS: HYDROcodone Bitartrate/Apap 5/325 Tablet PO (18:27)
== END 2019-11-19 18:48 | disposition home or self-care (01) ==
PROVIDERS: Emergency Provider Emergency Medicine; PCP Family Medicine
DX: J06.9 Acute upper respiratory infection, unspecified (principal); E66.9 Obesity, unspecified; Z72.0 Tobacco use
CPT/HCPCS: 71045; 80053; 84484; 85025; 87804; 87807; 93005; 96374; 96375; 99285; A4216; J2405

== ENCOUNTER 2019-12-18 23:44 | Emergency (ER) | payer MEDICAID, SELFPAY ==
[2019-11-19 15:58] VITALS: BMI 35.7
[2019-12-18 23:44] VITALS: BP 141/95; PULSE 110; RESP 18; TEMP 36.7; O2SAT 97; BMI 36.1
--- NOTE | 2019-12-19 00:02 | ED.VISSUMM ---
- ER Visit Summary Date of Service: 12/19/19 Chief Complaint: Dental pain History of Present Illness: The patient is a 29 F with left maxillary dental pain for 3 days. The patient was started on amoxicillin. She is taking naproxen and Tylenol, but her pain is still severe. No trouble speaking, breathing, or swallowing. Physical Examination: Afebrile and vital signs unremarkable. There is no obvious abscess. No tongue elevation. No trismus. Airway intact. No lymphadenopathy or meningeal signs. Skin normal. Test Results: None indicated Emergency Department Course and Treatment: Continue antibiotics. I advised her it will take a few days for them to start working. I did check her prescription report. She is not currently on narcotics. I will prescribe a short course of pain medicine. Follow-up with dental. Treatment Plan: As above Disposition: Discharge Impression: Dental pain This note was generated with COM DEV dictation software. It may contain incorrect words, spelling, and punctuation that were not noted in review of the chart prior to signing ED Disposition - Plan for ED Patient: Referrals: Azar Smith MD [Primary Care Provider] -
--- NOTE | 2019-12-19 00:03 | ED.DEP ---
ED Disposition - Plan for ED Patient: Instructions: ED Tooth Pain Prescriptions: Hydrocodone Bitart/Apap 5-325 [Ranchita 5MG-325MG] 1 tab PO Q6H PRN PRN 3 Days #10 tab PRN Reason: Pain Prescription Printed Referrals: Azar Smith MD [Primary Care Provider] -
[2019-12-19] MEDS: HYDROcodone Bitartrate/Apap 5/325 Tablet PO (00:05)
== END 2019-12-19 00:12 | disposition home or self-care (01) ==
LOC: ED 12-19 00:11
PROVIDERS: Emergency Provider Emergency Medicine; PCP Family Medicine
DX: K08.89 Other specified disorders of teeth and supporting structures (principal); Z79.1 Long term (current) use of non-steroidal anti-inflammatories (NSAID); Z79.2 Long term (current) use of antibiotics; Z72.0 Tobacco use
CPT/HCPCS: 99283

== ENCOUNTER 2019-12-26 19:18 | Emergency (ER) | payer MEDICAID, SELFPAY ==
[2019-12-26 19:21] VITALS: BP 149/98; PULSE 120; PULSE 126; RESP 17; RESP 18; TEMP 36.6; O2SAT 98; BMI 36.6
--- NOTE | 2019-12-26 21:00 | ED.DCSUM_ITS ---
History of Present Illness Chief Complaint: Dental Informant: Patient Onset: Days Context: Gradual Onset Timing: Continuous Current Severity: Moderate Maximum Severity: Severe Relieved by: Topicals Associated Symptoms: Sensitivity Narrative: Patient is a 29-year-old female with no significant past medical history prese nting with pain at the roof of her mouth. She is previously diagnosed with cellulitis and has been on a course of antibiotics as well as prednisone. She followed up again with her PCP office and was switched to clindamycin as well as another round of prednisone. She does feel like the steroids have helped the sore at her mouth. Her PCP office was concerned that she could not be seen by a dentist until the end of the month so instructed her to come to the emergency room for further evaluation and imaging as needed. Patient states she has pain when she eats or drinks denies any difficulty swallowing. She states she has had some irritation of her vagina consistent with a yeast infection from her last round of antibiotics but denies any sores. She is not take any medication besides her recent antibiotics and [id number] melatonin/Benadryl for sleep. She was prescribed fluconazole today as well. Patient denies any rash. She notes her daughter was recently diagnosed with pneumonia but denies any other sick contacts. Past Medical History - Allergies and Home Meds Allergies/Adverse Reactions: Allergies gentamicin [Gentamicin] Allergy (Unknown, Verified 12/26/19 19:18) Other HEARING LOSS Primary Care Physician: Azar Smith MD [Primary Care Provider] - Past Medical History: None Surgical History: cholecystectomy, - - Lives: With Family Smoking Status: Current every day smoker Review of Systems General: Denies: Chills, Fever, Sweats Eyes: Denies: Visual changes - bilaterally, Diplopia ENT: Reports: - - Mouth pain. Denies: Rhinorrhea, Sore throat Cardiovascular: Denies: Chest pain, Palpitations Respiratory: Denies: Dyspnea, Cough, Dyspnea on exertion Gastrointestinal: Denies: Abdominal pain, Nausea, Vomiting, Diarrhea, Melena, Hematochezia Genitourinary: Reports: - - Vaginal irritation. Denies: Dysuria, Hematuria, Frequency Musculoskeletal: Denies: Back pain, Extremity Pain Skin: Denies: Rash, Wounds Neurological: Denies: Headache, Weakness, Numbness Physical Exam Vital Signs/Narrative: Vital Signs Temp Pulse Resp BP Pulse Ox 12/26/19 19:21 97.9 F 126 H 18 149/98 H 98 Inital Vital Signs reviewed: Yes General: Well nourished, Well developed Head: Normocephalic, Atraumatic ENT: Moist mucous membranes, No rhinorrhea, TM's clear Mouth/Throat: Normal inspection lips/gums, Normal oral mucosa, No focal abscess, Apthous ulcer - Hard palate. Negative for: Dental abscess, Focal gum swelling, Gingivitis, Tenderness on tooth percussion, Widespread dental decay Neck: Supple, No lymphadenopathy, Nontender, No JVD Cardiovascular: Regular rhythm, No murmurs, Tachycardia Respiratory: No distress, CTA bilaterally, Chest nontender Abdomen: Soft, Nontender, Nondistended, Normal bowel sounds : Thick white vaginal discharge, no ulcerations/lesions of the vaginal mucosa Back: Nontender, Normal Inspection Extremities: Nontender, No edema Skin: Normal color, No rash, - - Negative Nikolsky sign, no petechial rash. Negative for: Rash Neurological: Alert, Oriented x3, Cranial nerves II-XII grossly intact, Normal Strength, Normal Sensation Psychological: Normal affect Diagnostic/Tx/Re-eval - Medical Decision Making She is evaluated for pain and sore in the roof of her mouth. She was seen at her PCP office today and there was concerned that she had cellulitis of her mouth. As she could not follow-up with dentist today she was sent to the emergency room for further evaluation. On physical exam her sore appears to be more of an ulceration consistent with either herpangina or an aphthous ulcer. He does not appear cellulitic and there is not appear to be any associated abscess. I do not think facial imaging would be indicated at this time. I did do a pelvic exam to make sure patient did not have any lesions of her vaginal mucosa in case this could be an atypical presentation of Mesfin Lalo syndrome. Do not see any vaginal lesions and her exam was consistent with yeast vaginitis. Patient was prescribed fluconazole earlier today for this. I did discuss the case with PCP on-call, Dr. Mooney who was agreeable with discharge home and starting her on Magic mouthwash. Patient is given a dental referral sheet. She does have a dental appointment at the end of this month. She is instructed to follow-up with her PCP sooner if her symptoms worsen. She will continue her clindamycin and steroids as prescribed as well. Patient is tachycardic in the emergency room. She attributes this to being on steroids. She states she feels hot and this happens when she takes prednisone. She is otherwise well-appearing I do not think this requires further intervention at this time. She has no associated chest pain or shortness of breath. She is afebrile. Patient is counseled on signs and symptoms requiring return to the emergency room. Patient verbalizes agreement and understand this plan. Patient discharged home in stable and improved condition. ED Disposition - Plan for ED Patient: Disposition: Home or Assisted Living Diagnosis: Mouth ulceration Instructions: ED Canker Sore Prescriptions: Magic Mouth Wash 10 ml PO TID PRN #120 ml PRN Reason: mouth pain Prescription Printed Referrals: Azar Smith MD [Primary Care Provider] - Additional Instructions: please call your primary care doctor tomorrow to arrange close follow up and monitoring of your mouth. Please continue the medications prebviously prescribed. Return to the ED if you develop worsening lesions/sores or develop any new rash or vaginal sores.
== END 2019-12-26 21:16 | disposition home or self-care (01) ==
PROVIDERS: Emergency Provider Emergency Medicine; PCP Family Medicine
DX: K13.79 Other lesions of oral mucosa (principal); B37.3 Candidiasis of vulva and vagina; F17.200 Nicotine dependence, unspecified, uncomplicated; Z79.2 Long term (current) use of antibiotics; Z79.52 Long term (current) use of systemic steroids
CPT/HCPCS: 99282

== ENCOUNTER 2020-02-09 22:25 | Emergency (ER) | payer MEDICAID, SELFPAY ==
[2020-02-09 22:26] VITALS: BP 123/82; PULSE 126; RESP 22; TEMP 37.2; O2SAT 97; BMI 36.3
--- NOTE | 2020-02-09 22:39 | EKG12_ITS ---
Test Reason : CP Blood Pressure : / mmHG Vent. Rate : 115 BPM Atrial Rate : 115 BPM P-R Int : 144 ms QRS Dur : 078 ms QT Int : 332 ms P-R-T Axes : 022 -11 006 degrees QTc Int : 459 ms Sinus tachycardia Inferior infarct , age undetermined Possible Anterior infarct , age undetermined Abnormal ECG Confirmed by LEORA CANDELARIA, WALESKA ([id number]), food expeditor KRZYSZTOF PERALTA ([id number]) on 02/13/2020 10:46:17 AM Referred By: DR GOMEZ Confirmed By:WALESKA COREY MD
--- NOTE | 2020-02-09 22:40 | ED.VIS.GEN ---
History of Present Illness Chief Complaint: Chest Pain Informant: Patient Onset: Yesterday Context: Gradual Onset Timing: Waxes and wanes Current Severity: Moderate Maximum Severity: Moderate Narrative: Patient presents secondary to chest pain. She states pain starts just below her left scapula and wraps around her chest into the left anterior chest. She does not notice shortness of breath but states her partner was commenting that she was breathing very rapidly. She denies cough or congestion. She denies fever. She denies DVT or PE risk factors. - Past Medical History (1) Gastritis Status: Chronic Past Medical History - Allergies and Home Meds Allergies/Adverse Reactions: Allergies gentamicin [Gentamicin] Allergy (Unknown, Verified 02/09/20 22:32) Other HEARING LOSS Primary Care Physician: Azar Smith MD [Primary Care Provider] - Prior records reviewed: Yes Surgical History: cholecystectomy, - - Lives: With Family Smoking Status: Current every day smoker Review of Systems General: Denies: Chills, Fever Eyes: Denies: Visual changes - bilaterally ENT: Denies: Bilateral ear pain Cardiovascular: Reports: Chest pain Respiratory: Denies: Dyspnea, Cough Gastrointestinal: Denies: Abdominal pain, Nausea, Vomiting, Diarrhea Genitourinary: Denies: Dysuria Musculoskeletal: Denies: Swelling, Extremity Pain Skin: Denies: Rash Neurological: Denies: Headache Hematologic: Denies: Easy bruising, Easy bleeding Allergy: Denies: Uticaria Physical Exam Vital Signs/Narrative: Vital Signs Temp Pulse Resp BP Pulse Ox 02/09/20 22:26 99 F 126 H 22 H 123/82 H 97 Inital Vital Signs reviewed: Yes General: Well nourished, Well developed Head: Normocephalic ENT: Moist mucous membranes Neck: Supple Cardiovascular: Regular rhythm, Tachycardia Respiratory: No distress, CTA bilaterally Abdomen: Soft, Nontender Extremities: Nontender, No edema Skin: Normal color, No rash Neurological: Alert, Oriented x3 Psychological: Normal affect Diagnostic/Tx/Re-eval Impressions Chest X-Ray 02/09/20 23:25 IMPRESSION: No acute cardiopulmonary findings or changes. Negative for new consolidation, focal atelectasis, pleural effusion or cardiomegaly. Electronically Signed: Tracee Hernandez MD at 23:43 EDT , Service support , 02/09/20 23:25 Chest 1 View (Portable) [RAD] Stat Laboratory Results 02/09/20 02/09/20 02/09/20 22:30 22:30 22:30 WBC 17.5 H RBC 5.41 H Hgb 13.8 Hct 43.5 MCV 80.4 L MCH 25.5 L MCHC 31.7 L RDW Std Deviation 46.2 H RDW Coeff of Anjana 17.1 H Plt Count 322 MPV 10.3 Immature Gran % (Auto) 0.300 Neut % (Auto) 61.2 Lymph % (Auto) 32.5 [place] % (Auto) 4.7 Eos % (Auto) 0.9 Baso % (Auto) 0.4 Absolute Neuts (auto) 10.7 H Absolute Lymphs (auto) 5.69 H Nucleated RBC % 0 D-Dimer Quant (PE/DVT) <= 0.27 Sodium 138 Potassium 3.4 L Chloride 108 H Carbon Dioxide 25.0 Anion Gap 5 BUN 9 Creatinine 0.61 Estim Creat Clear Calc 102.69 Est GFR (MDRD) Af Amer 149 Est GFR (MDRD) Non-Af 123 BUN/Creatinine Ratio 14.8 Glucose 88 Calcium 9.3 Troponin I < 0.015 Serum , Qual Urine Color Urine Clarity Urine pH Ur Specific [place] Urine Protein Urine Glucose (UA) Urine Ketones Urine Occult Blood Urine Nitrite Urine Bilirubin Urine Urobilinogen Ur Leukocyte Esterase Urine RBC Urine WBC Ur Squamous Epith Cells Urine Bacteria Urine Mucus 02/09/20 02/09/20 22:30 23:05 WBC RBC Hgb Hct MCV MCH MCHC RDW Std Deviation RDW Coeff of Anjana Plt Count MPV Immature Gran % (Auto) Neut % (Auto) Lymph % (Auto) [place] % (Auto) Eos % (Auto) Baso % (Auto) Absolute Neuts (auto) Absolute Lymphs (auto) Nucleated RBC % D-Dimer Quant (PE/DVT) Sodium Potassium Chloride Carbon Dioxide Anion Gap BUN Creatinine Estim Creat Clear Calc Est GFR (MDRD) Af Amer Est GFR (MDRD) Non-Af BUN/Creatinine Ratio Glucose Calcium Troponin I Serum , Qual NEGATIVE Urine Color Yellow Urine Clarity Sl. Cloudy Urine pH 7.0 Ur Specific [place] 1.015 Urine Protein Negative Urine Glucose (UA) Normal Urine Ketones Negative Urine Occult Blood Negative Urine Nitrite Negative Urine Bilirubin Negative Urine Urobilinogen Normal Ur Leukocyte Esterase Negative Urine RBC 0 SEEN Urine WBC 0 SEEN Ur Squamous Epith Cells 10-25 SEEN Urine Bacteria 0 SEEN Urine Mucus 0 SEEN - EKG Initial EKG Interpretation: Sinus Tachycardia - Sinus tach at 115. No acute ischemia. - Medical Decision Making Patient was given morphine and Zofran for pain. After completion of labs she was given 40 mEq of potassium orally. Test results are discussed with the patient. She does have a leukocytosis and in reviewing her prior labs has had an elevated white count on majority of her visits. Patient states this has been mentioned to her but really no follow-up has been provided. I will refer her to hematology for follow-up. Patient was reassured with normal cardiac and pulmonary testing at this time. ED Disposition - Plan for ED Patient: Disposition: Home or Assisted Living Diagnosis: Atypical chest pain Instructions: ED Chest Pain Atypical Unkn Cause Referrals: Azar Smith MD [Primary Care Provider] - Colin Gilbert MD [NON-STAFF] -
[2020-02-09 23:11] LABS: Bacteria 0 SEEN /hpf (None Seen); Mucous, Urine 0 SEEN /hpf (<or=2+); Red Blood Cells-Urine 0 SEEN /hpf (0-5); White Blood Cells 0 SEEN /hpf (0-5)
[2020-02-09 23:12] LABS: Internal QC Validated? YES +Cl - CLEAR BKGD; Pregnancy, Serum, hCG Quali. NEGATIVE Negative
[2020-02-09] MEDS: 0.9% Normal Saline 1,000 ML 150 ML IV (23:13)
[2020-02-09] MEDS: Ondansetron 4 MG/2 ML Vial IV (23:13)
[2020-02-09] MEDS: Morphine 4 MG/ML Syringe IV (23:13)
[2020-02-09 23:14] LABS: Color, Urine Yellow (Yellow); Glucose, Dipstick Normal (Normal); Ketone-Dipstick Negative (Negative); Leukocyte Esterase-Dipstick Negative /ul (Negative); Nitrite-Dipstick Negative (Negative); Occult Blood-Urine Negative /ul (Negative); Protein-Dipstick Negative (Negative); Specific Gravity, Urine 1.015 (1.002-1.030); Urine Bilirubin Dipstick Negative (Negative); Urine Clarity Sl. Cloudy (Clear); Urine Urobilinogen Normal (Normal)
[2020-02-09 23:19] LABS: Squamous Epithelial Cells - UA 10-25 SEEN /hpf (5-10)
[2020-02-09 23:20] LABS: Anion Gap 5 (5-15); BUN 9 mg/dL (7-18); BUN/Creat Ratio 14.8 RATIO (10-20); Calcium,Total 9.3 mg/dL (8.5-10.1); Chloride 108 mmol/L (98-107); Creatinine, Serum 0.61 mg/dL (0.55-1.02); EST Glomerular Filtration Rate 123 mL/min (>60); Est Glom Filt Rate - Afr Amer 149 mL/min (>60); Estimated Creatinine Clearance 102.69 ml/min; Glucose 88 mg/dL (74-106); Potassium 3.4 mmol/L (3.5-5.1); Sodium Level 138 mmol/L (136-145)
--- NOTE | 2020-02-09 23:25 | RAD_ITS ---
STUDY: X-RAY CHEST REASON FOR EXAM: Female, 29 years old. LEFT SIDED CHEST AND SHOULDER PAIN FOR 2 DAYS TECHNIQUE: 1 view COMPARISON: Prior chest radiograph November 19, 2019 FINDINGS: Small surgical ching present in the anterior mediastinum and one alongside the right heart border. The lungs are clear and expanded. There is no demonstrated pleural abnormality. Normal size heart. Normal mediastinum and christa. Normal visualized pulmonary arteries. Normal visualized aortic arch and descending thoracic aorta. Normal visualized thoracic spine. Normal visualized ribs, clavicles, and shoulders. There is no demonstrated abnormality of the visualized soft tissue structures of the upper abdomen. RAD/Chest 1 View (Portable) IMPRESSION: No acute cardiopulmonary findings or changes. Negative for new consolidation, focal atelectasis, pleural effusion or cardiomegaly. Electronically Signed: Tracee Hernandez MD at 23:43 EDT , Service support ,
[2020-02-10 00:12] LABS: D-Dimer Quantitative (DVT/PE) <= 0.27 FEU/ug/m (0.27-0.49)
[2020-02-10 00:25] LABS: Absolute Lymphocyte Count 5.69 X10^3/uL (0.83-4.51); Absolute Neutrophil Count 10.7 X10^3/uL (2.0-7.7); Basophil# 0.07 X10^3/uL; Basophil% 0.4 % (0-1); Differential Indicated SCAN CRITERIA MET; Eosinophil# 0.15 X10^3/uL; Eosinophils% 0.9 % (0-5); Hematocrit 43.5 % (37-47); Hemoglobin 13.8 g/dL (12.0-15.0); Lymphocyte # 5.69 X10^3/ul (4.0); Lymphocyte % 32.5 % (19-41); Mean Corp Hgb Conc 31.7 g/dL (32-36); Mean Corpuscular Hgb 25.5 pg (27.0-32.0); Mean Corpuscular Volume 80.4 fL (81-99); Mean Platelet Vol. 10.3 fl (6.2-12.0); Monocyte# 0.82 X10^3/uL; Monocyte% 4.7 % (0-10); NRBC Flagged by Analyzer 0 % (0-5); Neutrophil % 61.2 % (47-70); POSITIVE DIFFERENTIAL YES; Platelet Count 322 K/mm3 (150-450); RBC Distribution Width CV 17.1 % (11.6-14.6); RBC Distribution Width SD 46.2 fl (35.1-43.9); Red Blood Count 5.41 M/mm3 (4.2-5.4); White Blood Count 17.5 K/mm3 (4.4-11.0)
[2020-02-10 00:32] LABS: Atypical Lymphocyte RARE %
[2020-02-10 00:33] LABS: Differential Comment SCANNED
[2020-02-10 00:41] VITALS: BP 124/76; PULSE 97; RESP 18; O2SAT 98
== END 2020-02-10 00:47 | disposition home or self-care (01) ==
PROVIDERS: Emergency Provider Emergency Medicine; PCP Family Medicine
DX: R07.89 Other chest pain (principal); F17.200 Nicotine dependence, unspecified, uncomplicated
CPT/HCPCS: 71045; 80048; 81001; 84484; 84703; 85025; 85379; 93005; 96361; 96374; 96375; 99283; J7030; A4216; J2405

== ENCOUNTER 2020-02-17 22:56 | Emergency (ER) | payer MEDICAID, SELFPAY ==
[2020-02-14 10:33] VITALS: BMI 35.6
[2020-02-17 22:57] VITALS: BP 130/96; PULSE 121; RESP 15; TEMP 36.4; O2SAT 100; BMI 35.2
--- NOTE | 2020-02-17 23:08 | CT_ITS ---
STUDY: CT ABDOMEN AND PELVIS WITH CONTRAST REASON FOR EXAM: Female, 29 years old. LEFT SIDE CP WITH DYSPNEA, 16 POUND WEIGHT LOSS, HX C-SECTIONS, GB, ARRYTHMIA, RADIATION DOSAGE (If Supplied By Facility): CTDIvol = ( 11.74 ) mGy, DLP = ( 1514.41 ) mGycm TECHNIQUE: Transaxial images were obtained from the dome of the diaphragm to the symphysis pubis without oral contrast. IV 100mL Isovue-370 was administered. Sagittal and coronal images were reconstructed. Individualized dose optimization techniques were used for this CT. COMPARISON: May 09, 2019 CT scan abdomen and pelvis FINDINGS: There is a relatively stable focus of scarring within the right middle lobe. The visualized portions of the heart are within normal limits. There is mild intra and extrahepatic ductal dilatation. The common duct measures 9.8 mm. Cyst is stable when compared to prior study. There are surgical clips in the gallbladder fossa consistent with a prior cholecystectomy. Normal spleen. Normal pancreas. Normal bilateral adrenal glands. Normal right kidney. Normal left kidney. Normal visualized stomach. There is a tortuous appearance of the small bowel. There is mild wall thickening more apparent than the prior study. There is a moderate amount of gas and stool visualized within the colon. There are a few diverticula present without visualized diverticulitis. The appendix is visualized and appears normal. Normal abdominal aorta. Normal inferior vena cava. There are small subcentimeter mesenteric lymph nodes similar to the prior study. Normal urinary bladder. Normal visualized uterus. There is a persistent left ovarian cyst or follicle measuring 2.1 x 1.6 cm similar to the prior study. There are phleboliths in the pelvis. Normal abdominal wall. The level of L4-L5 there is a broad disc bulge without significant neural foramina narrowing central stenosis. CT/Abdomen/Pelvis W IV Cont ONLY IMPRESSION: There is a tortuous mildly thickened appearance of the small bowel in the left upper quadrant suggestive of mild enteritis. This accompanies small stable appearing mesenteric lymph nodes measuring up to 1 cm. Status post cholecystectomy persistent mild intra and extrahepatic duct dilatation. Small left ovarian cyst. Electronically Signed: Estefania Lacy MD at 0:37 EDT Tel , Service support ,
--- NOTE | 2020-02-17 23:08 | CT_ITS ---
STUDY: CTA CHEST REASON FOR EXAM: Female, 29 years old. INT LEFT SIDE CP WITH DYSPNEA, 16 POUND WEIGHT LOSS, HX C-SECTIONS, GB, ARRYTHMIA RADIATION DOSAGE (If Supplied By Facility): CTDIvol = ( 11.74 ) mGy, DLP = ( 1514.41 ) mGycm TECHNIQUE: The examination was performed with the intravenous administration of IV 100mL Isovue-370. Post-processing of the angiographic images was performed, with multiplanar reformation and 3D reconstruction. Individualized dose optimization techniques were used for this CT. COMPARISON: Chest x-ray 02/09/2020, CT chest January 15, 2013 FINDINGS: Normal enhancement of the main pulmonary artery and right and left pulmonary arteries. Normal enhancement of the bilateral peripheral pulmonary arteries. There is no demonstrated pulmonary embolism. Normal thoracic aorta and visualized great vessels. There is no demonstrated aortic dissection. Normal heart and pericardium. There is a prominent appearance of the pericardial fat. There is a stable lymph node adjacent to the aortic arch measuring 1.3 cm. Normal hilar regions. Normal visualized trachea and bronchi. The lungs are well expanded. There are a few areas of hyperlucency in the lungs suggesting probable air trapping. There is a metallic density within the pleura approximately at the level of the right side of the diaphragm. This is stable since November 14, 2018. There is a trace focus of lingular scarring stable since prior studies. There is no visualized fracture. Normal osseous structures. Normal visualized upper abdomen. CT/CTA Chest W/WO Contrast IMPRESSION: Normal CTA chest examination, without a demonstrated pulmonary embolism or arterial dissection. Postoperative change at the right lung base/pleural with a small focal metallic density. Electronically Signed: Estefania Lacy MD at 0:45 EDT Tel , Service support ,
--- NOTE | 2020-02-17 23:08 | EKG12_ITS ---
Test Reason : CP Blood Pressure : / mmHG Vent. Rate : 114 BPM Atrial Rate : 114 BPM P-R Int : 132 ms QRS Dur : 082 ms QT Int : 334 ms P-R-T Axes : 041 000 019 degrees QTc Int : 460 ms Sinus tachycardia Cannot rule out Inferior infarct , age undetermined Abnormal ECG Confirmed by ABE CANDELARIA, NORMA ([id number]), medical editor KRZYSZTOF PERALTA ([id number]) on 02/20/2020 10:57:38 AM Referred By: NICK PERRY Confirmed By:NORMA FISH MD
--- NOTE | 2020-02-17 23:16 | ED.VIS.GEN ---
History of Present Illness Chief Complaint: Chest Pain Informant: Patient Onset: Days Context: Gradual Onset Timing: Intermittent Current Severity: Moderate Maximum Severity: Moderate Narrative: The patient is a 29-year-old female that presents to the emergency department with intermittent left-sided chest pain and dyspnea. Patient was seen here about 7 days ago for the same complaints. At that time, she had unremarkable work-up. D-dimer was negative. Chest x-ray showed no volume overload. Cardiac enzymes were negative. She was found to have leukocytosis and was referred to outpatient oncology. She has seen oncology who is started work-up for leukocytosis. She states that the pain continues to come. She states sometimes is when she is eating eating, but sometimes at rest. She has had low-grade fever. She does admit to a 16 pound weight loss. Prior similar symptoms: Yes Recent Illness/Hospitalization: No Past Medical History - Allergies and Home Meds Allergies/Adverse Reactions: Allergies gentamicin [Gentamicin] Allergy (Unknown, Verified 02/17/20 23:00) Other HEARING LOSS Primary Care Physician: Azar Smith MD [Primary Care Provider] - Prior records reviewed: Yes Past Medical History: None Surgical History: cholecystectomy, - - Smoking Status: Current every day smoker Review of Systems General: Denies: Chills, Fever, Sweats Eyes: Denies: Visual changes - bilaterally, Diplopia ENT: Denies: Rhinorrhea, Sore throat Cardiovascular: Reports: Chest pain. Denies: Palpitations Respiratory: Reports: Dyspnea. Denies: Cough, Dyspnea on exertion Gastrointestinal: Denies: Abdominal pain, Nausea, Vomiting, Diarrhea, Melena, Hematochezia Genitourinary: Denies: Dysuria, Hematuria, Frequency Musculoskeletal: Denies: Back pain, Extremity Pain Skin: Denies: Rash, Wounds Neurological: Denies: Headache, Weakness, Numbness Physical Exam Vital Signs/Narrative: Vital Signs Temp Pulse Resp BP Pulse Ox 02/17/20 22:57 97.6 F L 121 H 15 130/96 H 100 Inital Vital Signs reviewed: Yes General: Well nourished, Well developed, No Acute Distress Head: Normocephalic, Atraumatic Eyes: Perrl, EOMI ENT: Moist mucous membranes, No rhinorrhea Neck: Supple, Nontender Cardiovascular: Regular rate, Regular rhythm, No murmurs Respiratory: No distress, CTA bilaterally, Chest nontender Abdomen: Soft, Nontender, Nondistended, Normal bowel sounds Back: Nontender, Normal Inspection Extremities: Nontender, No edema Skin: Normal color, No rash Neurological: Alert, Oriented x3, Cranial nerves II-XII grossly intact, Normal Strength, Normal Sensation Psychological: Normal affect, Normal Mood Diagnostic/Tx/Re-eval Clinical Impression(s) from Imaging Studies Abdomen/Pelvis CT 02/17/20 23:08 IMPRESSION: There is a tortuous mildly thickened appearance of the small bowel in the left upper quadrant suggestive of mild enteritis. This accompanies small stable appearing mesenteric lymph nodes measuring up to 1 cm. Status post cholecystectomy persistent mild intra and extrahepatic duct dilatation. Small left ovarian cyst. Electronically Signed: Estefania Lacy MD at 0:37 EDT Tel , Service support , Chest CTA 02/17/20 23:08 IMPRESSION: Normal CTA chest examination, without a demonstrated pulmonary embolism or arterial dissection. Postoperative change at the right lung base/pleural with a small focal metallic density. Electronically Signed: Estefania Lacy MD at 0:45 EDT Tel , Service support , Abnormal Lab Results 02/17/20 02/17/20 23:25 23:25 WBC 16.4 H RBC 5.13 Hgb 13.2 Hct 42.1 MCV 82.1 MCH 25.7 L MCHC 31.4 L RDW Std Deviation 48.4 H RDW Coeff of Anjana 16.2 H Plt Count 361 MPV 10.2 Immature Gran % (Auto) 0.400 Neut % (Auto) 59.5 Lymph % (Auto) 32.6 [place] % (Auto) 5.4 Eos % (Auto) 1.6 Baso % (Auto) 0.5 Absolute Neuts (auto) 9.8 H Absolute Lymphs (auto) 5.35 H Nucleated RBC % 0 Differential Comment COMMENT Sodium 140 Potassium 3.7 Chloride 108 H Carbon Dioxide 26.0 Anion Gap 6 BUN 13 Creatinine 0.64 Estim Creat Clear Calc 97.87 Est GFR (MDRD) Af Amer 142 Est GFR (MDRD) Non-Af 118 BUN/Creatinine Ratio 20.5 H Glucose 90 Calcium 8.9 Total Bilirubin 0.20 AST 15 ALT 24 Alkaline Phosphatase 91 Troponin I < 0.015 Total Protein 7.3 Albumin 3.5 Globulin 3.8 Albumin/Globulin Ratio 0.9 - Medical Decision Making Patient presents to the emergency department with recurrent chest pain. She was seen here for the same just about a week ago. She is concerned because she is currently in the work-up for questionable leukemia or lymphoma. She does admit to some peripheral adenopathy, but I cannot palpate this. With her pain and symptoms, I do feel that imaging would be most appropriate. Screening labs were obtained were unremarkable. CT chest abdomen pelvis was obtained under IV contrast protocol to help with the oncology work-up. There is an area of small enteritis in the left upper quadrant where the patient is having most of her pain. There is no significantly enlarged lymph nodes or other dangerous process. At this point, I do feel that she is safe for discharge to continue her outpatient work-up. The patient is comfortable with this plan of care. Impression 1. Nonspecific chest pain 2. Left upper quadrant enteritis 3. Leukocytosis ED Disposition - Plan for ED Patient: Instructions: ED Epigastric Pain [facility] Prescriptions: Dicyclomine HCl [Bentyl] 20 mg PO TIDAC #20 cap Prescription Printed Ondansetron [Zofran Odt] 4 mg PO Q8H PRN PRN #10 tab PRN Reason: Nausea Prescription Printed Referrals: Azar Smith MD [Primary Care Provider] -
[2020-02-17] MEDS: 0.9% Normal Saline 1,000 ML 1000 ML IV (23:26)
[2020-02-17] MEDS: Morphine 4 MG/ML Syringe IV (23:27)
[2020-02-17] MEDS: Ketorolac 15 MG/ML Vial IV (23:31)
[2020-02-17] MEDS: Ondansetron 4 MG/2 ML Vial IV (23:37)
[2020-02-17 23:57] LABS: Absolute Lymphocyte Count 5.35 X10^3/uL (0.83-4.51); Absolute Neutrophil Count 9.8 X10^3/uL (2.0-7.7); Basophil# 0.09 X10^3/uL; Basophil% 0.5 % (0-1); Eosinophil# 0.26 X10^3/uL; Eosinophils% 1.6 % (0-5); Hematocrit 42.1 % (37-47); Hemoglobin 13.2 g/dL (12.0-15.0); Lymphocyte # 5.35 X10^3/ul (4.0); Lymphocyte % 32.6 % (19-41); Mean Corp Hgb Conc 31.4 g/dL (32-36); Mean Corpuscular Hgb 25.7 pg (27.0-32.0); Mean Corpuscular Volume 82.1 fL (81-99); Mean Platelet Vol. 10.2 fl (6.2-12.0); Monocyte# 0.89 X10^3/uL; Monocyte% 5.4 % (0-10); NRBC Flagged by Analyzer 0 % (0-5); Neutrophil # 9.77 X10^3/uL (2.7-7.7); Neutrophil % 59.5 % (47-70); POSITIVE DIFFERENTIAL YES; Platelet Count 361 K/mm3 (150-450); RBC Distribution Width CV 16.2 % (11.6-14.6); RBC Distribution Width SD 48.4 fl (35.1-43.9); Red Blood Count 5.13 M/mm3 (4.2-5.4); White Blood Count 16.4 K/mm3 (4.4-11.0)
[2020-02-18 00:02] LABS: ALB/GLOB Ratio 0.9 RATIO (0.9-2.4); AST(SGOT) 15 U/L (15-37); Alanine Aminotransfer ALT/SGPT 24 U/L (13-56); Albumin, Serum 3.5 g/dL (3.2-5.0); Alkaline Phosphatase 91 U/L (45-117); Anion Gap 6 (5-15); BUN 13 mg/dL (7-18); BUN/Creat Ratio 20.5 RATIO (10-20); Calcium,Total 8.9 mg/dL (8.5-10.1); Chloride 108 mmol/L (98-107); Creatinine, Serum 0.64 mg/dL (0.55-1.02); EST Glomerular Filtration Rate 118 mL/min (>60); Est Glom Filt Rate - Afr Amer 142 mL/min (>60); Estimated Creatinine Clearance 97.87 ml/min; Globulin 3.8 g/dL (2.2-4.2); Glucose 90 mg/dL (74-106); Potassium 3.7 mmol/L (3.5-5.1); Protein, Total 7.3 g/dL (6.4-8.2); Sodium Level 140 mmol/L (136-145)
[2020-02-18 00:04] LABS: Differential Indicated SCAN CRITERIA MET
[2020-02-18 00:12] VITALS: BP 125/83; PULSE 95; RESP 16; O2SAT 98
[2020-02-18 00:57] VITALS: BP 120/88; PULSE 98; RESP 16; O2SAT 98
== END 2020-02-18 01:01 | disposition home or self-care (01) ==
LOC: ED 02-18 00:12
PROVIDERS: Emergency Provider Emergency Medicine; PCP Family Medicine
DX: R07.9 Chest pain, unspecified (principal); K52.9 Noninfective gastroenteritis and colitis, unspecified; F17.200 Nicotine dependence, unspecified, uncomplicated
CPT/HCPCS: 71275; 74177; 80053; 84484; 85025; 93005; 96361; 96374; 96375; 99285; J2405

== ENCOUNTER → 2020-04-23 | Outpatient (CLI) | payer MEDICAID, SELFPAY ==
[2020-03-06 13:21] VITALS: BMI 35.6
== END | disposition home or self-care (01) ==
LOC: MTDU 17:48
PROVIDERS: PCP Family Medicine; Referring Provider Nurse Practitioner; Visit Provider Nurse Practitioner
DX: Z20.828 Contact with and (suspected) exposure to other viral communicable diseases (principal)
CPT/HCPCS: 87635; C9803; U0003

== ENCOUNTER 2020-05-06 18:06 | Emergency (ER) | payer MEDICAID, SELFPAY ==
[2020-03-06 13:21] VITALS: BMI 35.6
[2020-05-06 18:07] VITALS: BP 146/90; PULSE 109; PULSE 110; RESP 16; RESP 18; TEMP 36.4; O2SAT 100; O2SAT 99; BMI 33.3
--- NOTE | 2020-05-06 18:24 | CT_ITS ---
STUDY: CT ABDOMEN AND PELVIS WITHOUT CONTRAST REASON FOR EXAM: Female, 29 years old. LT FLANK PAIN,NAUSEA AND SOB X 2 MONTHS -- HX:ASTHMA,THYMOMA WITH THORACOTOMY,CHOLECYSTECTOMY, X 3 RADIATION DOSAGE (If Supplied By Facility): CTDIvol = ( 19.29 ) mGy, DLP = ( 968.46 ) mGycm TECHNIQUE: Transaxial images were obtained from the dome of the diaphragm to the symphysis pubis without oral contrast, and without intravenous contrast. Sagittal and coronal images were reconstructed. Individualized dose optimization techniques were used for this CT. COMPARISON: 02/17/2020. FINDINGS: The visualized lung bases are unremarkable. The visualized portions of the heart are within normal limits. There is decreased attenuation of the liver consistent with steatosis. There is hepatomegaly. There are surgical clips in the gallbladder fossa consistent with a prior cholecystectomy. Normal spleen. Normal pancreas. Normal bilateral adrenal glands. Normal right kidney. Normal left kidney. Evaluation of the GI tract is limited by the absence of oral contrast. Normal visualized stomach. Normal small intestine. Normal colon. The appendix is visualized and appears normal. Normal abdominal aorta. Normal inferior vena cava. Normal retroperitoneum. Normal urinary bladder. Normal visualized uterus. Normal abdominal wall. Normal osseous structures. CT/Abdomen/Pelvis without Cont IMPRESSION: No definite acute or significant abnormality seen. Electronically Signed: Vinh Maurice MD at 20:23 EDT , Service support ,
--- NOTE | 2020-05-06 18:24 | CT_ITS ---
STUDY: CTA CHEST REASON FOR EXAM: Female, 29 years old. LT FLANK PAIN,NAUSEA AND SOB X 2 MONTHS -- HX:ASTHMA,THYMOMA WITH A THORACOTOMY,CHOLECYSTECTOMY, X 3 RADIATION DOSAGE (If Supplied By Facility): CTDIvol = ( 15.73 ) mGy, DLP = ( 535.29 ) mGycm TECHNIQUE: The examination was performed with the intravenous administration of contrast. Post-processing of the angiographic images was performed, with multiplanar reformation and 3D reconstruction. Individualized dose optimization techniques were used for this CT. COMPARISON: 02/17/2020. FINDINGS: Normal enhancement of the main pulmonary artery and right and left pulmonary arteries. Normal enhancement of the bilateral peripheral pulmonary arteries. There is no demonstrated pulmonary embolism. Normal thoracic aorta and visualized great vessels. There is no demonstrated aortic dissection. Normal heart and pericardium. Normal mediastinum. Normal hilar regions. Normal visualized trachea and bronchi. The lungs are well expanded. Normal pulmonary parenchyma. Normal pleura. Normal chest wall structures. Normal osseous structures. Normal visualized upper abdomen. CT/CTA Chest W/WO Contrast IMPRESSION: Normal CTA chest examination, without a demonstrated pulmonary embolism or arterial dissection. Electronically Signed: Vinh Maurice MD at 20:14 EDT , Service support ,
--- NOTE | 2020-05-06 18:31 | ED.DCSUM_ITS ---
- ER Visit Summary Date of Service: 05/06/20 Chief Complaint: Left-sided back and flank pain. History of Present Illness: The patient is a 29 F presenting with left-sided back and flank pain. Patient states this started today. She states she had intermittent episodes over the past couple months and has been worked up for this in the past with no known cause. She states at one time her lymphocytes were high and she was sent to hematology. She states cancer was ruled out. She continues to have intermittent pain in her left mid and lower back. She has nausea with no vomiting. She has had chronic diarrhea. She denies other complaints. Physical Examination: Vitals are stable. Patient is afebrile. Alert no acute distress. HEENT exam is unremarkable. Neck is supple. Lungs are clear and equal bilaterally. Heart is regular rate and rhythm. Abdomen is soft nontender nondistended. Back: Left paraspinal thoracic muscle tenderness, left CVA tenderness, no midline tenderness Extremities are unremarkable. Skin is warm and dry. No focal neurologic deficit. Remainder of exam is unremarkable. Emergency Department Course and Treatment: Patient was given morphine, Zofran IV with improvement. Urinalysis unremarkable. hCG negative. CTA chest shows normal CTA chest examination, without a demonstrated pulmonary embolism or arterial dissection. CT abdomen pelvis shows no definite acute or significant abnormality seen. Patient is feeling improved on reevaluation. She is given prescription for short course of [place] and advised to continue ibuprofen at home. Advised to follow-up with her primary care physician. Advised return to ED for worsening complaints. Disposition: Discharge home Impression: Left flank pain This note was generated with [employer] dictation software. It may contain incorrect words, spelling, and punctuation that were not noted in review of the chart prior to signing ED Disposition - Plan for ED Patient: Instructions: ED Flank Pain Uncertain Cause Prescriptions: Hydrocodone Bitart/Apap 5-325 [[place] 5MG-325MG] 1 tab PO Q6H PRN PRN 3 Days #6 tab PRN Reason: Pain Prescription Printed Referrals: Azar Smith MD [Primary Care Provider] -
[2020-05-06] MEDS: Ondansetron 4 MG/2 ML Vial IV (18:52)
[2020-05-06] MEDS: Morphine 4 MG/ML Syringe IV (18:53)
[2020-05-06 19:00] LABS: Bacteria 0 SEEN /hpf (None Seen); Mucous, Urine 0 SEEN /hpf (<or=2+); Red Blood Cells-Urine 0 SEEN /hpf (0-5); Squamous Epithelial Cells - UA 0 SEEN /hpf (5-10); White Blood Cells 0 SEEN /hpf (0-5)
[2020-05-06 19:02] LABS: Color, Urine Yellow (Yellow); Glucose, Dipstick Normal (Normal); Ketone-Dipstick 5 mg/dl (Negative); Leukocyte Esterase-Dipstick Negative /ul (Negative); Nitrite-Dipstick Negative (Negative); Occult Blood-Urine Negative /ul (Negative); Protein-Dipstick Negative (Negative); Urine Bilirubin Dipstick Negative (Negative); Urine Clarity Clear (Clear); Urine Urobilinogen Normal (Normal)
[2020-05-06 19:05] LABS: Internal QC Validated? YES +Cl - CLEAR BKGD; Pregnancy, Urine Negative Negative
--- NOTE | 2020-05-06 20:38 | ED.DEP ---
ED Disposition - Plan for ED Patient: Instructions: ED Flank Pain Uncertain Cause Prescriptions: Hydrocodone Bitart/Apap 5-325 [[place] 5MG-325MG] 1 tab PO Q6H PRN PRN 3 Days #6 tab PRN Reason: Pain Prescription Printed Referrals: Azar Smith MD [Primary Care Provider] -
[2020-05-06 21:32] VITALS: RESP 16
== END 2020-05-06 21:33 | disposition home or self-care (01) ==
LOC: ED 18:40
PROVIDERS: Emergency Provider Emergency Medicine; PCP Family Medicine
DX: R10.9 Unspecified abdominal pain (principal); Z72.0 Tobacco use
CPT/HCPCS: 71275; 74176; 81001; 81025; 96374; 96375; 99284; Q9967; A4216; J2405

== ENCOUNTER → 2020-06-20 | Outpatient (CLI) | payer MEDICAID, SELFPAY ==
--- NOTE | 2020-06-20 09:00 | RAD_ITS ---
STUDY: AIR-CONTRAST UPPER GI SERIES AND SMALL BOWEL FOLLOW-THROUGH EXAMINATION. REASON FOR EXAM: Female, 29 years old. LUQ PAIN, BLOATING, DIARRHEA -- 85 FLUORO SEC, 43.64mGy, 33 FLUORO IMAGES FLUOROSCOPY TIME (if supplied): ( 85 seconds ) minutes/seconds. 24 images were obtained. TECHNIQUE: The patient ingested barium. Multiple images of the esophagus, stomach and duodenum were obtained. Following this, a small bowel follow-through examination was performed. COMPARISON: None. FINDINGS: The esophagus is unremarkable. There is no evidence of gastroesophageal reflux. No mass lesion is seen. The stomach and duodenum are unremarkable. No evidence of ulceration. A small bowel follow-through examination was then performed. The small bowel transit is normal. No intrinsic or extrinsic small bowel disease. The terminal ileum is unremarkable. RAD/Upper GI/w Small Bowel IMPRESSION: Unremarkable air-contrast upper GI series and small bowel follow-through examination. Electronically Signed: Nikolai Meyers, at 12:33 EDT , Service support ,
== END | disposition home or self-care (01) ==
LOC: RAD 08:47
PROVIDERS: PCP Family Medicine; Referring Provider Nurse Practitioner Adult Health; Visit Provider Nurse Practitioner Adult Health
DX: K52.9 Noninfective gastroenteritis and colitis, unspecified (principal); R10.12 Left upper quadrant pain; K21.9 Gastro-esophageal reflux disease without esophagitis; R63.4 Abnormal weight loss
CPT/HCPCS: 74246; 74248

== ENCOUNTER 2020-09-16 20:25 | Emergency (ER) | payer MEDICAID, SELFPAY ==
[2020-09-16 20:25] VITALS: BP 118/100; PULSE 134; RESP 22; TEMP 36; O2SAT 98; BMI 30.6
--- NOTE | 2020-09-16 20:40 | EKG12_ITS ---
Test Reason : SOB Blood Pressure : / mmHG Vent. Rate : 104 BPM Atrial Rate : 104 BPM P-R Int : 134 ms QRS Dur : 082 ms QT Int : 356 ms P-R-T Axes : 011 006 007 degrees QTc Int : 468 ms Sinus tachycardia Otherwise normal ECG Confirmed by ABE CANDELARIA, NORMA ([id number]), news video editor FAHAD MONIQUE ([id number]) on 09/18/2020 11:14:36 AM Referred By: BARBARA Confirmed By:NORMA FISH MD
--- NOTE | 2020-09-16 20:42 | ED.VIS.GEN ---
History of Present Illness Chief Complaint: Shortness of Breath Informant: Patient Onset: Days - 4 days Context: Gradual Onset Current Severity: Moderate Maximum Severity: Moderate Narrative: Patient presents secondary to shortness of breath and congestion. She states she has had a lot of sinus congestion for the past 4 days. Yesterday she had a temperature of 101.8 with movement of her arm. She has had prior chest surgery on the right and is not sure if this may be related to scar tissue. Today she has had no fever but had significant shortness of breath with any exertion. - Past Medical History (1) Asthma Status: Chronic Past Medical History - Allergies and Home Meds Allergies/Adverse Reactions: Allergies gentamicin [Gentamicin] Allergy (Unknown, Verified 05/06/20 18:06) Other HEARING LOSS Primary Care Physician: Azar Smith MD [Primary Care Provider] - Prior records reviewed: Yes Surgical History: cholecystectomy, - - Lives: With Family Smoking Status: Current every day smoker Review of Systems General: Denies: Chills, Fever Eyes: Denies: Visual changes - bilaterally ENT: Reports: - - Sinus pressure. Denies: Bilateral ear pain Cardiovascular: Reports: Chest pain Respiratory: Reports: Dyspnea Gastrointestinal: Denies: Abdominal pain, Vomiting, Diarrhea Musculoskeletal: Denies: Swelling, Extremity Pain Skin: Denies: Rash Hematologic: Denies: Easy bruising, Easy bleeding Allergy: Denies: Uticaria Physical Exam Vital Signs/Narrative: Vital Signs Temp Pulse Resp BP Pulse Ox 09/16/20 20:25 96.8 F L 134 H 22 H 118/100 H 98 Inital Vital Signs reviewed: Yes General: Well nourished, Well developed Head: Normocephalic ENT: Moist mucous membranes Neck: Supple Cardiovascular: Regular rhythm, Tachycardia Respiratory: No distress, CTA bilaterally Abdomen: Soft, Nontender Extremities: Nontender Skin: Normal color Neurological: Alert, Oriented x3 Psychological: Normal affect Diagnostic/Tx/Re-eval Chest X-Ray - ED: 1 View, Read by ED Physician, Chronic Changes, No Infiltrates Impressions Chest X-Ray 09/16/20 21:09 IMPRESSION: No acute cardiopulmonary disease or interval change. Electronically Signed: Parker Paz DO at 21:30 EST Tel [phone], Service support , 09/16/20 21:09 Chest 1 View (Portable) [RAD] Stat 09/16/20 20:50 Mucosa - Nose SARS-CoV-2 Antigen (Rapid) - Final Laboratory Results 09/16/20 09/16/20 09/16/20 20:50 20:50 20:50 WBC 12.7 H RBC 6.00 H Hgb 15.0 Hct 46.0 MCV 76.7 L MCH 25.0 L MCHC 32.6 RDW Std Deviation 44.3 H RDW Coeff of Anjana 16.4 H Plt Count 371 MPV 10.4 Immature Gran % (Auto) 0.300 Neut % (Auto) 55.4 Lymph % (Auto) 38.0 [place] % (Auto) 5.2 Eos % (Auto) 0.5 Baso % (Auto) 0.6 Absolute Neuts (auto) 7.0 Absolute Lymphs (auto) 4.84 H Nucleated RBC % 0 D-Dimer Quant (PE/DVT) 0.34 Sodium 139 Potassium 3.5 Chloride 107 Carbon Dioxide 25.0 Anion Gap 7 BUN 7 Creatinine 0.71 Estim Creat Clear Calc 92.47 Est GFR (MDRD) Af Amer 125 Est GFR (MDRD) Non-Af 103 BUN/Creatinine Ratio 9.9 L Glucose 86 Calcium 9.4 Troponin I < 0.015 Serum , Qual 09/16/20 20:50 WBC RBC Hgb Hct MCV MCH MCHC RDW Std Deviation RDW Coeff of Anjana Plt Count MPV Immature Gran % (Auto) Neut % (Auto) Lymph % (Auto) [place] % (Auto) Eos % (Auto) Baso % (Auto) Absolute Neuts (auto) Absolute Lymphs (auto) Nucleated RBC % D-Dimer Quant (PE/DVT) Sodium Potassium Chloride Carbon Dioxide Anion Gap BUN Creatinine Estim Creat Clear Calc Est GFR (MDRD) Af Amer Est GFR (MDRD) Non-Af BUN/Creatinine Ratio Glucose Calcium Troponin I Serum , Qual NEGATIVE - EKG Initial EKG Interpretation: Sinus Tachycardia - Sinus tach at 104 with no acute ischemia. - Medical Decision Making Patient is observed on school bus monitor throughout her ED stay. Vital signs been stable. Portable chest x-ray per my interpretation reveals no focal infiltrate. Radiologist interpretation is reviewed. Blood work is unremarkable including a negative D-dimer. Covid test is negative. Test results discussed with the patient. I did advise further that her symptoms may be secondary to sinus infection and she does have a lot of sinus pressure. She does have tenderness over the maxillary sinuses bilaterally. Prescription will be sent to the pharmacy for her and if she is not improving in the next 2 to 3 days she will pick this up. I did advise her that her symptoms may all still be viral at this point as she is only 4 days into the current infection. She voices understanding and agreement with the plan. ED Disposition - Plan for ED Patient: Disposition: Home or Assisted Living Diagnosis: Sinusitis Instructions: ED Sinusitis (Antibiotic Treatment), ED Dyspnea Prescriptions: Azithromycin [Zithromax Z-Mihir] 250 mg PO UD #1 box Transmission Status: Pending to [id number] Referrals: Azar Smith MD [Primary Care Provider] - 1 Week if not improving
[2020-09-16 20:59] VITALS: BP 121/102; PULSE 106; RESP 33; TEMP 36; O2SAT 100
--- NOTE | 2020-09-16 21:09 | RAD_ITS ---
STUDY: X-RAY CHEST REASON FOR EXAM: Female, 29 years old. . Worsening shortness of breath. Pain left chest under the arm. With inspiration. Tested negative for COVID 19 on September 03. TECHNIQUE: Single AP portable view of the chest. COMPARISON: 02/09/2020. FINDINGS: The lungs are clear and expanded. There is no demonstrated pleural abnormality. Normal size heart. Normal mediastinum and christa. Normal visualized pulmonary arteries. Normal visualized aortic arch and descending thoracic aorta. No visualized osseous changes. Again seen surgical clips over the upper mid chest. There is no demonstrated abnormality of the visualized soft tissue structures of the upper abdomen. RAD/Chest 1 View (Portable) IMPRESSION: No acute cardiopulmonary disease or interval change. Electronically Signed: Parker Paz DO at 21:30 EST Tel [phone], Service support ,
[2020-09-16 21:12] LABS: Absolute Lymphocyte Count 4.84 X10^3/uL (0.83-4.51); Basophil# 0.08 X10^3/uL; Basophil% 0.6 % (0-1); Eosinophil# 0.07 X10^3/uL; Eosinophils% 0.5 % (0-5); Lymphocyte # 4.84 X10^3/ul (4.0); Mean Corp Hgb Conc 32.6 g/dL (32-36); Mean Corpuscular Volume 76.7 fL (81-99); Mean Platelet Vol. 10.4 fl (6.2-12.0); Monocyte# 0.66 X10^3/uL; Monocyte% 5.2 % (0-10); NRBC Flagged by Analyzer 0 % (0-5); Neutrophil # 7.04 X10^3/uL (2.7-7.7); Neutrophil % 55.4 % (47-70); Platelet Count 371 K/mm3 (150-450); RBC Distribution Width CV 16.4 % (11.6-14.6); RBC Distribution Width SD 44.3 fl (35.1-43.9); White Blood Count 12.7 K/mm3 (4.4-11.0)
[2020-09-16 21:18] LABS: Internal QC Validated? YES +Cl - CLEAR BKGD; Pregnancy, Serum, hCG Quali. NEGATIVE Negative
[2020-09-16 21:22] LABS: D-Dimer Quantitative (DVT/PE) 0.34 FEU/ug/m (0.27-0.49)
[2020-09-16 21:25] LABS: Anion Gap 7 (5-15); BUN 7 mg/dL (7-18); BUN/Creat Ratio 9.9 RATIO (10-20); Calcium,Total 9.4 mg/dL (8.5-10.1); Chloride 107 mmol/L (98-107); Creatinine, Serum 0.71 mg/dL (0.55-1.02); EST Glomerular Filtration Rate 103 mL/min (>60); Est Glom Filt Rate - Afr Amer 125 mL/min (>60); Estimated Creatinine Clearance 92.47 ml/min; Glucose 86 mg/dL (74-106); Potassium 3.5 mmol/L (3.5-5.1); Sodium Level 139 mmol/L (136-145)
[2020-09-16 21:38] VITALS: BP 122/84; PULSE 107; RESP 27; TEMP 36.1; O2SAT 100
[2020-09-16 22:03] VITALS: BP 115/89; PULSE 103; RESP 21; TEMP 36.5; O2SAT 99
== END 2020-09-16 22:17 | disposition home or self-care (01) ==
PROVIDERS: Emergency Provider Emergency Medicine; PCP Family Medicine
DX: J32.0 Chronic maxillary sinusitis (principal); J45.909 Unspecified asthma, uncomplicated; F17.200 Nicotine dependence, unspecified, uncomplicated
CPT/HCPCS: 71045; 80048; 84484; 84703; 85025; 85379; 87426; 93005; 99284; A4216

== ENCOUNTER 2020-09-22 14:56 | Emergency (ER) | payer MEDICAID, SELFPAY ==
[2020-09-22 14:58] VITALS: BP 127/105; PULSE 98; RESP 16; TEMP 36.5; O2SAT 100; BMI 32.3
--- NOTE | 2020-09-22 15:21 | ED.DCSUM_ITS ---
History of Present Illness Chief Complaint: Headache Informant: Patient Onset: Days Associated Symptoms: Nausea, Sinus Pressure, Visual Changes, Photophobia. Negative for: Fever, Vomiting, Sore Throat, Numbness, Tingling, Preceding Aura, Blurred Vision, Visual Loss Narrative: 29-year-old female presenting for the evaluation of headache. Patient denies any previous history of headaches. She states that she was recently treated for a sinus infection with azithromycin. The day before she finished the azithromycin (2 days ago) she began to have a generalized headache and took Tylenol states that it was bearable. Yesterday the headache became worse. She notes Reinbold-like visual changes in her periphery bilaterally. She notes nausea and light sensitivity. She states that she has a lot of facial pressure and teeth discomfort. She states that it feels a lot like she inhaled water. She denies any ear symptoms. No further nasal congestion. She tells me she went to [facility] last night and received 3 shots and received a prescription for Augmentin. Today she went to the urgent care and was referred to the hospital for management. She has no upcoming appointments with her doctor. No new medications. She states that she does not feel the headache changes if she lays back or sits forward but if she is sitting forward and lays her head down to put her in her hands it feels worse. No fever. - Past Medical History (1) Asthma Status: Chronic (2) Gastritis Status: Chronic Past Medical History - Allergies and Home Meds Allergies/Adverse Reactions: Allergies gentamicin [Gentamicin] Allergy (Unknown, Verified 09/22/20 15:02) Other HEARING LOSS Primary Care Physician: Azra Smith MD [Primary Care Provider] - Surgical History: noncontributory, cholecystectomy, - - Smoking Status: Current every day smoker Drugs: None Review of Systems General: Denies: Chills, Fever, Sweats Eyes: Reports: Visual changes - bilaterally. Denies: Diplopia ENT: Reports: - - Facial pain. Denies: Rhinorrhea, Sore throat Cardiovascular: Denies: Chest pain, Palpitations Respiratory: Denies: Dyspnea, Cough, Dyspnea on exertion Gastrointestinal: Reports: Nausea. Denies: Abdominal pain, Vomiting, Diarrhea, Melena, Hematochezia Genitourinary: Denies: Dysuria, Hematuria, Frequency Musculoskeletal: Denies: Back pain, Extremity Pain Skin: Denies: Rash, Wounds Neurological: Denies: Headache, Weakness, Numbness Physical Exam Vital Signs/Narrative: Vital Signs Temp Pulse Resp BP Pulse Ox 09/22/20 14:58 97.7 F L 98 16 127/105 H 100 Inital Vital Signs reviewed: Yes General: Well nourished, Well developed Head: NC, AT Eyes: Perrl, EOMI ENT: Moist mucous membranes, No rhinorrhea, Sinus tenderness Neck: Supple, No Lymphadenopathy, No JVD, Nontender, No Meningismus Cardiovascular: Regular rate, Regular rhythm, No murmurs Respiratory: No distress, CTA bilaterally, Chest nontender Abdomen: Soft, Nontender, Nondistended, Normal bowel sounds Back: Nontender, Normal Inspection Extremities: Nontender, No edema Skin: Normal color, No rash Neuro: Alert, Oriented x3, Cranial nerves II-XII grossly intact, Normal Strength, Normal Sensation, Normal DTR, Normal Gait Psychological: Normal affect Diagnostic/Tx/Re-eval Clinical Impression(s) from Imaging Studies Brain CT 09/22/20 15:21 IMPRESSION: No acute intracranial hemorrhage or mass effect. Electronically Signed: Jovon Yu MD (Brooks) at 16:03 EST , Service support , - Medical Decision Making Received IV fluids Toradol, Compazine, and Benadryl. CT the brain does not demonstrate any obvious sinusitis. Nor is or in any intracranial mass or hemorrhage. Given her ocular symptoms this is most likely migrainous. Patient on repeat examination the patient to be feeling significantly improved. She would like to be discharged home. Think it is reasonable to put her on a brief course of steroids in addition to scheduled anti-inflammatories. I will write for her to have nausea medication. She should follow-up with primary care this week. ED Disposition - Plan for ED Patient: Disposition: Home or Assisted Living Diagnosis: Ocular migraine Instructions: ED Headache Unspecified Prescriptions: Prednisone [Deltasone] 40 mg PO DAILY #10 tab Prescription Printed proMETHazine tablet [Phenergan] 25 mg PO Q6H PRN PRN #10 tab PRN Reason: Nausea Prescription Printed Ketorolac [Toradol] 10 mg PO Q8H #10 tab Prescription Printed Referrals: Sarah,Azar, MD [Primary Care Provider] - 1 Week
--- NOTE | 2020-09-22 15:21 | CT_ITS ---
STUDY: CT BRAIN WITHOUT CONTRAST REASON FOR EXAM: Female, 29 years old. PT DX WITH SINUS INFECTION AND FINISHED ZPAK. SINCE THEN C/O MIGRAINE WITH PERIPHERAL VISION CHANGES. NAUSEA, PHOTOPHOBIA RADIATION DOSAGE (If Supplied By Facility): CTDIvol = ( 44.99 ) mGy, DLP = ( 779.24 ) mGycm TECHNIQUE: Transaxial CT imaging of the brain was performed without administration of intravenous contrast material. Individualized dose optimization techniques were used for this CT. COMPARISON: No relevant priors. FINDINGS: Normal soft tissue structures. Normal calvarium. Normal size ventricles and extra-axial spaces for the patient''s age. Normal white matter tracts of the cerebral hemispheres. Normal basal ganglia and thalami. Normal brainstem. Normal cerebellum. There is no intracranial hemorrhage. There are no findings of an acute ischemic infarction. Normal visualized paranasal sinuses. CT/Brain/Head without Contrast IMPRESSION: No acute intracranial hemorrhage or mass effect. Electronically Signed: Jovon Yu MD (Brooks) at 16:03 EST , Service support ,
[2020-09-22] MEDS: DiphenhydrAMINE 50 MG/ML Syringe IV (15:34)
[2020-09-22] MEDS: Ketorolac 30 MG/ML Syringe IV (15:34)
[2020-09-22] MEDS: proCHLORPERazine 10 MG/2 ML Vial IV (15:34)
[2020-09-22] MEDS: 0.9% Normal Saline 1,000 ML 999 ML IV (15:34)
== END 2020-09-22 17:22 | disposition home or self-care (01) ==
PROVIDERS: Emergency Provider Emergency Medicine; PCP Family Medicine
DX: G43.109 Migraine with aura, not intractable, without status migrainosus (principal); J45.909 Unspecified asthma, uncomplicated; F17.200 Nicotine dependence, unspecified, uncomplicated
CPT/HCPCS: 70450; 96361; 96374; 96375; 99283; J7030; A4216

== ENCOUNTER 2020-10-05 00:45 | Emergency (ER) | payer MEDICAID, SELFPAY ==
[2020-10-05 00:46] VITALS: BP 125/101; PULSE 104; RESP 18; TEMP 36.6; O2SAT 99; BMI 34.0
--- NOTE | 2020-10-05 01:03 | ED.VIS.GEN ---
History of Present Illness Chief Complaint: Allergic Reaction Informant: Patient Narrative: 29-year-old female presenting with allergic reaction. She states that earlier in the evening she ate some tofu and started to break out into a rash. She states she took 325 mg tabs of Benadryl and the rash has been gone away. Now she reports that her throat feels a little tight and her tongue has doubled in size. She says she feels a little bit short of breath but not drastically. She has no abdominal pain. - Past Medical History (1) Asthma Status: Chronic Past Medical History - Allergies and Home Meds Allergies/Adverse Reactions: Allergies gentamicin [Gentamicin] Allergy (Unknown, Verified 10/05/20 00:50) Other HEARING LOSS Primary Care Physician: Azar Smith MD [Primary Care Provider] - Prior records reviewed: Yes Past Medical History: - - Resting tachycardia Surgical History: noncontributory, cholecystectomy, - - Lives: Spouse/ Significant Other Smoking Status: Current every day smoker Alcohol: None Drugs: None Review of Systems General: Denies: Chills, Fever, Sweats Eyes: Denies: Visual changes - bilaterally, Diplopia ENT: Reports: - - Throat tightness and tongue swelling. Denies: Rhinorrhea, Sore throat Cardiovascular: Denies: Chest pain, Palpitations Respiratory: Denies: Dyspnea, Cough, Dyspnea on exertion Gastrointestinal: Denies: Abdominal pain Genitourinary: Denies: Dysuria, Hematuria Musculoskeletal: Denies: Myalgias, Arthralgias Skin: Reports: Rash - Resolved on arrival Neurological: Denies: Headache, Weakness Psych: Denies: Depression, Anxiety Physical Exam Vital Signs/Narrative: Vital Signs Temp Pulse Resp BP Pulse Ox 10/05/20 00:46 97.9 F 104 H 18 125/101 H 99 General: Well nourished, No Acute Distress Head: Normocephalic, Atraumatic Eyes: Perrl, EOMI ENT: Moist mucous membranes, No rhinorrhea Neck: Supple, Nontender, - - No stridor Cardiovascular: Regular rhythm, Tachycardia Respiratory: No distress, CTA bilaterally Abdomen: Soft, Nontender Neurological: Alert, Oriented x3, Cranial nerves II-XII grossly intact Psychological: Normal affect, Normal Mood Diagnostic/Tx/Re-eval - Medical Decision Making 29-year-old female presenting for allergic reaction. Her rash has resolved on arrival. She does report that her tongue is twice the size it normally is, however on exam it does not look overly large. She states that her throat feels a little tight as well and she has a little bit of shortness of breath. Patient will receive epinephrine, Solu-Medrol, Pepcid as she is already taken Benadryl I will withhold this. She will be monitored in the ED. patient reevaluated at 2:14 AM states she has significant her throat is significantly improved. She still has some swelling to her tongue she feels. Patient was evaluated at 3 AM and 3:43 AM and still doing well. She states that her throat and tongue feel normal. She is slightly tachycardic at 101 however she has resting tachycardia which she knows about. Patient will given a prescription for an EpiPen. She is counseled not to eat tofu. Patient safe for discharge at this time. Impression: 1. Anaphylaxis ED Disposition - Plan for ED Patient: Disposition: Home or Assisted Living Instructions: ED Anaphylaxis Prescriptions: Epi Pen [Epi-Pen] 0.3 mg IM X1 #1 syringe Prescription Printed Referrals: Azar Smith MD [Primary Care Provider] -
[2020-10-05] MEDS: MethylPREDNISolone 125 MG/2 ML Vial IV (01:17)
[2020-10-05] MEDS: Famotidine 200 MG/20 ML MDV 20 MG in 0.9% Normal Saline (Pres. free 8 ML 300 MG IV (01:18)
[2020-10-05 02:45] VITALS: BP 124/83; PULSE 91; RESP 17; O2SAT 98
[2020-10-05 03:51] VITALS: BP 136/87; PULSE 100; RESP 18; O2SAT 98
== END 2020-10-05 03:52 | disposition home or self-care (01) ==
PROVIDERS: Emergency Provider Student in an Organized Health Care Education/Training Program; PCP Family Medicine
DX: T78.09XA Anaphylactic reaction due to other food products, initial encounter (principal); J45.909 Unspecified asthma, uncomplicated; F17.200 Nicotine dependence, unspecified, uncomplicated
CPT/HCPCS: 96372; 96374; 99284; A4216; J3490

== ENCOUNTER 2020-10-05 06:13 | Emergency (ER) | payer MEDICAID, SELFPAY ==
[2020-10-05 00:46] VITALS: BMI 34.0
[2020-10-05 06:15] VITALS: BP 174/124; PULSE 150; RESP 32; TEMP 36.6; O2SAT 99; BMI 27.8
--- NOTE | 2020-10-05 06:33 | RAD_ITS ---
STUDY: X-RAY - RIGHT FEMUR REASON FOR STUDY: Female, 29 years old. THIGH PAIN, ENTIRE LEG. HAD EPY PEN INJECTION LAST NIGHT. AREA OF INTEREST MARKED W/ ARROW TECHNIQUE: 2 view(s) of the femur. COMPARISON: None. FINDINGS: Normal visualized femur. Normal visualized soft tissue structure. RAD/Femur Min 2 Views IMPRESSION: Normal x-ray examination of the femur. Electronically Signed: Miki Arreola MD at 7:13 EST Tel , Service support ,
[2020-10-05] MEDS: Lidocaine 5% Patch 1 PATCH TOPICAL (06:43)
[2020-10-05] MEDS: Morphine 4 MG/ML Syringe IV ×2 (06:43→07:51)
[2020-10-05] MEDS: Ondansetron 4 MG/2 ML Vial IV (06:43)
--- NOTE | 2020-10-05 07:15 | ED.DCSUM_ITS ---
History of Present Illness Chief Complaint: Lower Extremity Injury Informant: Patient Narrative: 29-year-old female presenting with right leg pain. She states it is no location of her EpiPen site. She was seen and evaluated by me last night for tongue swelling and throat tightness after eating tofu. Patient was monitored in the ER and her symptoms had resolved. She had no leg pain at that time. She returns this morning with very bad leg pain at the injection site. She had no return of her allergic reaction. - Past Medical History (1) Asthma Status: Chronic Past Medical History - Allergies and Home Meds Allergies/Adverse Reactions: Allergies gentamicin [Gentamicin] Allergy (Unknown, Verified 10/05/20 06:14) Other HEARING LOSS Primary Care Physician: Azar Smith MD [Primary Care Provider] - Prior records reviewed: Yes Past Medical History: - - Reviewed in problem list Surgical History: noncontributory, cholecystectomy, - - Lives: Spouse/ Significant Other Smoking Status: Current every day smoker Alcohol: None Drugs: None Review of Systems General: Denies: Chills, Fever, Sweats Eyes: Denies: Visual changes - bilaterally, Diplopia ENT: Denies: Rhinorrhea, Sore throat Cardiovascular: Denies: Chest pain, Palpitations Respiratory: Denies: Dyspnea, Cough, Dyspnea on exertion Genitourinary: Denies: Dysuria, Hematuria, Frequency Musculoskeletal: Reports: Extremity Pain - Right thigh pain. Denies: Swelling Skin: Denies: Rash, Abscess Neurological: Denies: Headache, Weakness Psych: Denies: Depression, Anxiety Physical Exam Vital Signs/Narrative: Vital Signs Temp Pulse Resp BP Pulse Ox 10/05/20 06:15 97.9 F 150 H 32 H 174/124 H 99 General: Well nourished, No Acute Distress Head: Normocephalic, Atraumatic Eyes: Perrl, EOMI Cardiovascular: Regular rate, Regular rhythm Respiratory: No distress, CTA bilaterally Skin: Normal color, No rash Neurological: Alert, Oriented x3 Psychological: Normal affect, Tearful, Agitated Diagnostic/Tx/Re-eval - Medical Decision Making 29-year-old female presenting with right thigh pain. She states that her injection site. She had IV placed and she was given IV morphine as well as a Lidoderm patch to the area. X-ray was performed of the right femur to image the area of the injection site was. There appears to be no subcutaneous gas or other bony abnormality as interpreted by myself. There are no external signs of infection. There is no crepitance. No bruising or swelling. Patient will be sent home with a prescription for [place]. ED Disposition - Plan for ED Patient: Disposition: Home or Assisted Living Prescriptions: Hydrocodone Bitart/Apap 5-325 [[place] 5MG-325MG] 1 tab PO Q6H PRN PRN 3 Days #12 tab PRN Reason: Pain Prescription Printed Referrals: Azar Smith MD [Primary Care Provider] - Additional Instructions: You have pain in your injection site. I will prescribe you some pain medicine for home. If not improving or worsening please return back to the ER for repeat evaluation.
== END 2020-10-05 07:52 | disposition home or self-care (01) ==
PROVIDERS: Emergency Provider Student in an Organized Health Care Education/Training Program; PCP Family Medicine
DX: M79.604 Pain in right leg (principal); T80.89XA Other complications following infusion, transfusion and therapeutic injection, initial encounter; F17.200 Nicotine dependence, unspecified, uncomplicated; J45.909 Unspecified asthma, uncomplicated
CPT/HCPCS: 73552; 96374; 96375; 96376; 99284; A4216; J2405

== ENCOUNTER 2020-10-05 16:55 | Emergency (ER) | payer MEDICAID, SELFPAY ==
[2020-10-05 06:15] VITALS: BMI 27.8
[2020-10-05 16:57] VITALS: BP 138/112; PULSE 120; RESP 20; TEMP 36.8; O2SAT 95; BMI 29.1
--- NOTE | 2020-10-05 17:05 | CT_ITS ---
STUDY: CT SOFT TISSUE NECK WITH CONTRAST REASON FOR EXAM: Female, 29 years old. RIGHT NECK PAIN AFTER ALLERGIC REACTION , PT STATES SHE HAD TIGHTNESS TO THROAT AND TONGUE SWELLING FOR A REACTION TO UNKNOWN SOURCE, USED EPI PEN AND BENADRYL, PREV TONSILLECTOMY AND ADENOIDECTOMY, HYPOTHYROID, thoracotomy x 2 d/t benign thymolipoma, RADIATION DOSAGE (If Supplied By Facility): CTDIvol = ( 18.07 ) mGy, DLP = ( 505.57 ) mGycm TECHNIQUE: The patient was scanned in a multi-detector CT scanner. High resolution transaxial imaging was performed following intravenous administration of IV 75mL Isovue-370. Sagittal and coronal images were reconstructed. Individualized dose optimization techniques were used for this CT. COMPARISON: 11/09/13 FINDINGS: The lung apices are clear. There is no cervical lymphadenopathy. There is no fluid collection or soft tissue mass. The trachea is patent. The visualized intracranial structures are within normal limits. The visualized paranasal sinuses and mastoid air cells are clear. There are no destructive osseous lesions. CT/Soft Tissue Neck WITH Contrast IMPRESSION: Unremarkable contrast enhanced CT of the neck. Electronically Signed: Mesfin Garcia MD at 17:53 EST Tel , Service support ,
--- NOTE | 2020-10-05 17:06 | ED.VIS.GEN ---
History of Present Illness Chief Complaint: Allergic Reaction Informant: Patient Narrative: 29-year-old female presents with concern for allergic reaction. Patient was here late last night with concern for allergic reaction. At that time she was having throat swelling as well as tongue swelling. States that she was given epinephrine, steroids, Pepcid, Benadryl. Monitored in the department for approximately 3 hours. She was then discharged home began having pain in her leg around the site where she was injected with epinephrine and return to the emergency department. Patient received pain medication which helped her and she no longer has pain in her leg. States that today she began having the increased sensation of swelling in her throat and tongue again. States is primarily on the right side. States it is painful as well. Describes as a sharp pain with no relieving or worsening factors. Took 75 mg of Benadryl. Patient also used her epinephrine pen that she had been given and called 911. Past Medical History - Allergies and Home Meds Allergies/Adverse Reactions: Allergies gentamicin [Gentamicin] Allergy (Unknown, Verified 10/05/20 06:14) Other HEARING LOSS cat dander Allergy (Verified 10/05/20 17:02) Other grass pollen Allergy (Verified 10/05/20 17:02) Hives Primary Care Physician: Azar Smith MD [Primary Care Provider] - Prior records reviewed: Yes Past Medical History: None Surgical History: noncontributory, cholecystectomy, - - Lives: Spouse/ Significant Other, With Family Smoking Status: Current every day smoker Alcohol: None Drugs: None Review of Systems General: Denies: Chills, Fever, Sweats Eyes: Denies: Visual changes - bilaterally, Diplopia ENT: Reports: Sore throat, - - tongue swelling. Denies: Rhinorrhea Cardiovascular: Denies: Chest pain, Palpitations Respiratory: Denies: Dyspnea, Cough, Dyspnea on exertion Gastrointestinal: Denies: Abdominal pain, Nausea, Vomiting, Diarrhea, Melena, Hematochezia Genitourinary: Denies: Dysuria, Hematuria, Frequency Musculoskeletal: Denies: Back pain, Extremity Pain Skin: Denies: Rash, Wounds Neurological: Denies: Headache, Weakness, Numbness Physical Exam Vital Signs/Narrative: Vital Signs Temp Pulse Resp BP Pulse Ox 10/05/20 16:57 98.3 F 120 H 20 H 138/112 H 95 General: Well nourished, Well developed, No Acute Distress Head: Normocephalic, Atraumatic Eyes: Perrl, EOMI ENT: Moist mucous membranes, No rhinorrhea, - - No obvious swelling to the tongue or posterior pharynx. No erythema. No uvular deviation. Neck: Supple, Nontender Cardiovascular: Regular rhythm, No murmurs, Tachycardia Respiratory: No distress, CTA bilaterally, Chest nontender Abdomen: Soft, Nontender, Nondistended, Normal bowel sounds Back: Nontender, Normal Inspection Extremities: Nontender, No edema Skin: Normal color, No rash Neurological: Alert, Oriented x3, Cranial nerves II-XII grossly intact, Normal Strength, Normal Sensation Psychological: Normal affect, Normal Mood Diagnostic/Tx/Re-eval Clinical Impression(s) from Imaging Studies Soft Tissue Neck CT 10/05/20 17:05 IMPRESSION: Unremarkable contrast enhanced CT of the neck. Electronically Signed: Mesfin Garcia MD at 17:53 EST Tel , Service support , - Medical Decision Making Patient appears well and nontoxic. Vital signs within normal limits other than a tachycardia which is related to the epinephrine. Patient is phonating normally. I cannot appreciate a swelling to her tongue or posterior pharynx. Patient is describing this is right-sided in nature so CT with IV contrast of the neck was done which was negative for any inflammation, mass, abscess. Patient was also tested for strep throat as well as Covid which was negative. Patient was monitored in the emergency department for approximately 2-1/2 hours. States that she is feeling somewhat improved. Patient already has another epinephrine pen at home. Will be given 5-day course of 40 mg of prednisone as well as Pepcid. Asked to return for new or worsening symptoms. Will follow up with her primary care provider for possible allergy referral. Patient stable at time of discharge. Impression: 1. Allergic reaction ED Disposition - Plan for ED Patient: Disposition: Home or Assisted Living Instructions: ED General Allergic Reactions Prescriptions: Prednisone [Deltasone] 40 mg PO DAILY #10 tab Prescription Printed Famotidine [Pepcid] 20 mg PO BID #10 tab Prescription Printed Referrals: Azar Smith MD [Primary Care Provider] - 2 Days
[2020-10-05 18:55] VITALS: BP 128/88; PULSE 107; RESP 22; O2SAT 97
== END 2020-10-05 19:45 | disposition home or self-care (01) ==
PROVIDERS: Emergency Provider Emergency Medicine; PCP Family Medicine
DX: T78.40XA Allergy, unspecified, initial encounter (principal); F17.200 Nicotine dependence, unspecified, uncomplicated; T78.09XA Anaphylactic reaction due to other food products, initial encounter
CPT/HCPCS: 70491; 73552; 87426; 87880; 96372; 96374; 96375; 96376; 99284; 99285; Q9967; A4216; J2405; J3490

== ENCOUNTER 2020-10-07 20:00 | Emergency (ER) | payer MEDICAID, SELFPAY ==
[2020-10-07 20:02] VITALS: PULSE 114; RESP 21; TEMP 36.5; O2SAT 98; BMI 34.9
--- NOTE | 2020-10-07 20:34 | EKG12_ITS ---
Test Reason : ALLERGIC REACTION Blood Pressure : / mmHG Vent. Rate : 082 BPM Atrial Rate : 082 BPM P-R Int : 130 ms QRS Dur : 082 ms QT Int : 384 ms P-R-T Axes : 041 -03 020 degrees QTc Int : 448 ms Normal sinus rhythm Poor R- wave proogression Cannot rule out Anterior infarct , age undetermined Abnormal ECG Confirmed by ABE CANDELARIA, NORMA ([id number]), mapping editor FAHAD MONIQUE ([id number]) on 10/10/2020 1:43:00 PM Referred By: JASON Confirmed By:NORMA FISH MD
[2020-10-07] MEDS: 0.9% Normal Saline 1,000 ML 1000 ML IV (20:43)
[2020-10-07] MEDS: DiphenhydrAMINE 50 MG/ML Syringe IV (20:43)
[2020-10-07] MEDS: MethylPREDNISolone 125 MG/2 ML Vial IV (20:43)
[2020-10-07 20:48] LABS: Absolute Lymphocyte Count 4.56 X10^3/uL (0.83-4.51); Absolute Neutrophil Count 15.6 X10^3/uL (2.0-7.7); Basophil# 0.07 X10^3/uL; Basophil% 0.3 % (0-1); Hematocrit 42.9 % (37-47); Hemoglobin 13.9 g/dL (12.0-15.0); Lymphocyte # 4.56 X10^3/ul (4.0); Lymphocyte % 21.2 % (19-41); Mean Corp Hgb Conc 32.4 g/dL (32-36); Mean Corpuscular Hgb 25.4 pg (27.0-32.0); Mean Corpuscular Volume 78.4 fL (81-99); Monocyte# 1.07 X10^3/uL; NRBC Flagged by Analyzer 0 % (0-5); Neutrophil % 72.5 % (47-70); Platelet Count 384 K/mm3 (150-450); RBC Distribution Width CV 18.2 % (11.6-14.6); RBC Distribution Width SD 48.4 fl (35.1-43.9); Red Blood Count 5.47 M/mm3 (4.2-5.4); White Blood Count 21.5 K/mm3 (4.4-11.0)
--- NOTE | 2020-10-07 20:52 | RAD_ITS ---
STUDY: X-RAY CHEST REASON FOR EXAM: Female, 29 years old. ALLERGIC REACTION, UNSURE TO WHAT. TECHNIQUE: AP portable COMPARISON: 09/16/2020 FINDINGS: The lungs are clear and expanded. There is no demonstrated pleural abnormality. Normal size heart. Normal mediastinum and christa. Normal visualized pulmonary arteries. Normal visualized aortic arch and descending thoracic aorta. There are surgical clips in the right paratracheal soft tissues Normal visualized thoracic spine. Normal visualized ribs, clavicles, and shoulders. There is no demonstrated abnormality of the visualized soft tissue structures of the upper abdomen. No significant change since prior exam RAD/Chest 1 View (Portable) IMPRESSION: No acute cardiopulmonary pathology Electronically Signed: Adrian Kapoor MD at 21:51 EST , Service support ,
[2020-10-07 20:55] LABS: Internal QC Validated? YES +Cl - CLEAR BKGD; Pregnancy, Serum, hCG Quali. NEGATIVE Negative
[2020-10-07 20:57] LABS: D-Dimer Quantitative (DVT/PE) 0.42 FEU/ug/m (0.27-0.49)
[2020-10-07 21:01] LABS: AST(SGOT) 18 U/L (15-37); Alanine Aminotransfer ALT/SGPT 31 U/L (13-56); Albumin, Serum 3.9 g/dL (3.2-5.0); Alkaline Phosphatase 93 U/L (45-117); Anion Gap 12 (5-15); BUN 10 mg/dL (7-18); BUN/Creat Ratio 11.4 RATIO (10-20); Calcium,Total 9.1 mg/dL (8.5-10.1); Chloride 109 mmol/L (98-107); Creatinine, Serum 0.88 mg/dL (0.55-1.02); EST Glomerular Filtration Rate 81 mL/min (>60); Est Glom Filt Rate - Afr Amer 97 mL/min (>60); Estimated Creatinine Clearance 67.75 ml/min; Globulin 3.8 g/dL (2.2-4.2); Glucose 119 mg/dL (74-106); Potassium 3.7 mmol/L (3.5-5.1); Protein, Total 7.7 g/dL (6.4-8.2); Sodium Level 139 mmol/L (136-145)
[2020-10-07 21:09] VITALS: BP 132/91; PULSE 79; RESP 19; O2SAT 98
[2020-10-07] MEDS: Ketorolac 15 MG/ML Vial IV (21:31)
[2020-10-07 22:02] VITALS: BP 129/88; PULSE 79; RESP 14; O2SAT 98
--- NOTE | 2020-10-07 22:37 | ED.VISSUMM ---
- ER Visit Summary Date of Service: 10/07/20 Chief Complaint: Shortness of breath History of Present Illness: The patient is a [address] Smith. She reports that she has been having recurrent allergic reaction over the past 3 days. States that initially 3 days ago she was itchy and her tongue was swollen and her throat was tight. She was seen in the emergency department given steroids, Pepcid, and Benadryl went home and was doing better. 2 days ago she reports that she was not having itching, but she felt a squeezing her throat and she took an EpiPen. She had severe pain in her leg following that. States that she was seen in the emergency department again. Patient states that yesterday she took prednisone Benadryl, and Pepcid. She stayed by the window and that seemed to help. Patient reports that tonight she began having symptoms again and had already taken her Pepcid and prednisone. She took another dose of Benadryl and used her EpiPen. She reports the following that she had chest pressure that was 9-10 at worst and 10-10 currently. States that this was while she was hyperventilating. Patient denies any change in soap, shampoo, laundry detergent, or fabric softener. No new clothing, bedding, carpeting, or pets. Patient reports that she did have trazodone which she was new in the past month. However, she has not taken this for days. She also reports that they got a new furnace at home and that it has ozium which is some kind of sterilizing agent for Covid. States that this is strong enough that she can smell it in her home. She denies any other changes. Physical Examination: Vitals: Stable. Afebrile. General: Well-nourished and well-developed. Head: Normocephalic atraumatic. HEENT: No angioedema of lips, tongue, or pharynx. Neck: Supple, no lymphadenopathy. No JVD. Nontender. Cardiovascular: Regular rate and rhythm. No murmurs. Respiratory: No respiratory distress. Clear to auscultation bilaterally. Abdominal: Soft, nontender, nondistended, normal bowel sounds. No guarding, rebound, or peritoneal signs. Back: Nontender. Extremities: Nontender, no edema. Skin: Normal color, no rash. Neurologic: Alert and oriented ?3. Cranial nerves II through XII are intact. Normal strength and sensation. Psych: Normal affect. Test Results: EKG is sinus at 82 with no acute changes. Is unchanged from last month. D-dimer is negative. test is negative. Chem-7 shows a chloride of 109, CO2 of 18, glucose 119. CBC shows a white count of 21.5, second neutrophils 73, immature granulocytes 1.0%. Patient is on steroids. Clinical Impression(s) from Imaging Studies Chest X-Ray 10/07/20 20:52 IMPRESSION: No acute cardiopulmonary pathology Electronically Signed: Adrian Kapoor MD at 21:51 EST , Service support , Emergency Department Course and Treatment: Patient was given Benadryl and Solu-Medrol IV. She is already taken Pepcid today. She was given Toradol she states that her leg hurts from the EpiPen injection. Treatment Plan: Had a prolonged discussion with patient that she needs to turn off what ever chemical is coming through her furnace. Air out her house. Follow-up with immunology as previously scheduled. She is instructed to continue the Benadryl, Pepcid, and prednisone. She will also have Zyrtec added. I discussed with her that I would not use an EpiPen again as she seems to have severe pain following this and the reaction does not seem to require epinephrine. Follow-up with her primary care physician 1 to 2 days if not improving. Return to the emergency department for any worsening symptoms. Disposition: To home in improved and stable condition. Impression: 1. Allergic reaction, uncertain cause. This note was generated with [employer] software. It may contain incorrect words, spelling, and punctuation that were not noted in review of the chart prior to signing ED Disposition - Plan for ED Patient: Instructions: ED General Allergic Reactions Prescriptions: Cetirizine HCl [Zyrtec] 10 mg PO DAILY #14 capsule Referrals: Azar Smith MD [Primary Care Provider] - 1-2 Days if not improving
[2020-10-07 23:02] VITALS: PULSE 76; RESP 23; O2SAT 96
== END 2020-10-07 23:03 | disposition home or self-care (01) ==
LOC: ED 20:36
PROVIDERS: Emergency Provider Emergency Medicine; PCP Family Medicine
DX: T78.40XD Allergy, unspecified, subsequent encounter (principal); J45.909 Unspecified asthma, uncomplicated; Z72.0 Tobacco use
CPT/HCPCS: 71045; 80053; 84703; 85025; 85379; 93005; 96361; 96374; 96375; 99285; J7030; A4216; J3490

== ENCOUNTER 2020-10-18 18:35 | Emergency (ER) | payer MEDICAID, SELFPAY ==
[2020-10-18 18:36] VITALS: BP 137/101; PULSE 126; RESP 16; TEMP 36.2; O2SAT 98; BMI 31.6
[2020-10-18 18:43] VITALS: BP 135/86; PULSE 116; RESP 22; O2SAT 98
--- NOTE | 2020-10-18 18:46 | ED.RN ---
Patient reports she took benadryl at home, 25mg x 2 PO before coming in, approx 1 hour ago but did not use her epi pen
[2020-10-18 18:47] VITALS: O2SAT 99
--- NOTE | 2020-10-18 19:01 | ED.DCSUM_ITS ---
History of Present Illness Chief Complaint: Shortness of Breath Informant: Patient Onset: Hours Context: Sudden Onset Timing: Continuous Quality: Lump left of trachea and pain left preauricular area that radiates down Location: Left side of face and neck Current Severity: Mild Maximum Severity: Moderate Worsened by: Nothing specific Relieved by: Nothing Associated Symptoms: No change in voice, no blood taste back of throat, positive shortness of br Narrative: Patient is a 29-year-old woman who has had several visits this month for apparent allergic reaction. 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 She had a pulmonary test done which raises concern for vocal cord dysfunction. Patient did not have any berries, nuts or shellfish food. She denies rash. She denies itching. She does report feeling anxious. She denies history of anxiety or panic attacks. She is scheduled to see a specialist to confirm vocal cord dysfunction. Patient denies history of PE or DVT. She denies leg pain, swelling discoloration. She is not on hormonal therapy. She has no history of VTE and has no risk factors. She denies fever, chills night sweats. She denies rhinorrhea, congestion, postnasal drainage. She does complain of throat pain. She denies cough. She denies chest discomfort. She denies nausea, vomiting diarrhea. Prior similar symptoms: Yes Recent Illness/Hospitalization: Yes - Past Medical History (1) Asthma Status: Chronic (2) Gastritis Status: Chronic Past Medical History - Allergies and Home Meds Allergies/Adverse Reactions: Allergies gentamicin [Gentamicin] Allergy (Unknown, Verified 10/18/20 18:36) Other HEARING LOSS cat dander Allergy (Verified 10/18/20 18:36) Other grass pollen Allergy (Verified 10/18/20 18:36) Hives Primary Care Physician: Azar Smith MD [Primary Care Provider] - Prior records reviewed: Yes Surgical History: noncontributory, cholecystectomy, - - Lives: Spouse/ Significant Other Smoking Status: Current every day smoker Alcohol: None Drugs: None Review of Systems General: Denies: Chills, Fever, Malaise, Subjective, Sweats Eyes: Denies: Visual changes - bilaterally, Blurred Vision - bilaterally ENT: Reports: Left ear pain, Sore throat. Denies: Right ear pain, Rhinorrhea Cardiovascular: Denies: Chest pain, Palpitations Respiratory: Reports: Dyspnea. Denies: Dyspnea on exertion, Orthopnea, Paroxysmal nocturnal dyspnea Gastrointestinal: Denies: Abdominal pain, Nausea, Vomiting, Diarrhea Genitourinary: Denies: Dysuria, Hematuria, Frequency Musculoskeletal: Denies: Myalgias, Arthralgias, Swelling, Extremity Pain Skin: Denies: Rash, Wounds Neurological: Denies: Headache, Weakness, Parasthesia Psych: Denies: Depression, Anxiety Hematologic: Denies: Easy bruising, Easy bleeding Physical Exam Vital Signs/Narrative: Vital Signs Temp Pulse Resp BP Pulse Ox 10/18/20 18:43 116 H 22 H 135/86 H 98 10/18/20 18:36 97.2 F L 126 H 16 137/101 H 98 Inital Vital Signs reviewed: Yes General: Well nourished, Well developed, Obese, No Acute Distress Head: Normocephalic, Atraumatic Eyes: Perrl, EOMI. Negative for: Pale conjunctiva, Scleral icterus ENT: Moist mucous membranes, No rhinorrhea, TM's clear, - - We will is midline. There is no evidence of angioedema. Neck: Supple, Nontender, No lymphadenopathy, No JVD, - - Trachea is midline. There is no inspiratory expiratory stridor. There is no palpable mass. There is no tenderness over the parotid gland. Cardiovascular: Regular rhythm, No murmurs, Normal S1, Normal S2, Tachycardia Respiratory: No distress, CTA bilaterally, Chest nontender Abdomen: Soft, Nontender, Nondistended, Normal bowel sounds Extremities: Nontender, No edema, - - There is no asymmetry, swelling, discoloration, leg vein distention, palpable cords or tenderness along the distribution of the deep venous system. Skin: Normal color, No rash, No Trauma. Negative for: Cyanosis, Diaphoresis, Jaundice Neurological: Alert, Oriented x3, Cranial nerves II-XII grossly intact, Normal Strength, Normal Sensation Psychological: - - And appears slightly anxious. Diagnostic/Tx/Re-eval - Medical Decision Making Since there is no rash this is not consistent with allergic reaction. This may represent vocal cord dysfunction. Plan is to treat with IV Ativan. If symptoms resolve no further testing or treatment to be performed. If not will reevaluate and can consider other options. Of note she did have a CT of her neck which was negative. Patient was reassessed after aerosolized 4% lidocaine. Her foreign body sensation went away. She is in no distress. ED Disposition - Plan for ED Patient: Disposition: Home or Assisted Living Diagnosis: Vocal cord dysfunction Instructions: Vocal Cord Dysfunction (VCD) Referrals: Azar Smith MD [Primary Care Provider] - As Needed Additional Instructions: Keep your appointment with specialist at if you have significant trouble breathing, or gasping for breath, have difficulty speaking or swallowing return to the emergency department; otherwise, please follow-up with specialist
[2020-10-18] MEDS: LORazepam 2 MG/ML Syringe 1 MG IV (19:32)
[2020-10-18 20:12] VITALS: BP 125/86; PULSE 111; RESP 20; O2SAT 100
[2020-10-18 20:45] VITALS: PULSE 102; RESP 18
[2020-10-18] MEDS: Lidocaine 4% 5 ML Ampul 2 ML INHALATION (20:45)
[2020-10-18 21:05] VITALS: BP 112/97; PULSE 98; RESP 15; O2SAT 99
== END 2020-10-18 21:06 | disposition home or self-care (01) ==
PROVIDERS: Emergency Provider Emergency Medicine; PCP Family Medicine
DX: J38.3 Other diseases of vocal cords (principal); J45.909 Unspecified asthma, uncomplicated; F17.200 Nicotine dependence, unspecified, uncomplicated; E66.9 Obesity, unspecified
CPT/HCPCS: 94640; 96374; 99283; A4216

== ENCOUNTER 2020-10-19 18:52 | Emergency (ER) | payer MEDICAID, SELFPAY ==
[2020-10-18 18:36] VITALS: BMI 31.6
[2020-10-19 18:53] VITALS: BP 130/89; PULSE 110; RESP 18; TEMP 36.4; O2SAT 99; BMI 32.1
--- NOTE | 2020-10-19 19:17 | ED.VISSUMM ---
- ER Visit Summary Date of Service: 10/19/20 Chief Complaint: Subjective dyspnea Present Illness: The patient is a 29 F with a past medical history of reflux and possible vocal cord dysfunction. She has had extensive work-ups in the last several months for subjective dyspnea. Including negative CTA, negative chest x-rays and negative lab work and EKGs. Patient states she feels short of breath today. Denies fever, chills or chest pain. She also complains of left earache. She denies any nausea vomiting or diarrhea. No fever. No hemoptysis. [] Physical Examination: Well-appearing young female. No acute distress. Seems anxious. Vital signs are stable afebrile. Pulse ox 99% on room air no signs of hypoxia. H EENT exam normal. Posterior pharynx normal. No swelling. No redness. No stridor. No drooling. TMs are normal bilaterally. Neck nontender. Trachea midline no lymphadenopathy. Lungs clear to auscultation bilaterally. Heart regular rhythm rate about 100 no murmur. Abdomen soft nontender normal bowel sounds no peritoneal signs. Back nontender. Skin unremarkable other than multiple tattoos. Moving all 4 extremities. Calves are nontender without edema or cords. Neurologically she is awake alert with no focal motor deficits. Test Results: None. I did review her work-ups from prior visits. She was seen here yesterday also. Emergency Department Course and Treatment: Patient appears to be anxious. She is a normal exam. She will be given p.o. Ativan. Treatment Plan: Outpatient follow-up with her primary care physician. Disposition: discharge Impression: Subjective dyspnea Acute anxiety This note was generated with [employer] dictation software. It may contain incorrect words, spelling, and punctuation that were not noted in review of the chart prior to signing ED Disposition - Plan for ED Patient: Referrals: Azar Smith MD [Primary Care Provider] -
--- NOTE | 2020-10-19 19:20 | ED.DEP ---
ED Disposition - Plan for ED Patient: Disposition: Home or Assisted Living Instructions: ED Anxiety Reaction Referrals: Azar Smith MD [Primary Care Provider] - 3-5 Days Additional Instructions: Follow-up with your doctor.
[2020-10-19] MEDS: LORazepam 1 MG Tablet PO (19:24)
== END 2020-10-19 20:00 | disposition home or self-care (01) ==
PROVIDERS: Emergency Provider Emergency Medicine; PCP Family Medicine
DX: F41.9 Anxiety disorder, unspecified (principal); K21.9 Gastro-esophageal reflux disease without esophagitis; Z72.0 Tobacco use; Z79.899 Other long term (current) drug therapy
CPT/HCPCS: 99283

== ENCOUNTER 2020-10-23 16:58 | Emergency (ER) | payer MEDICAID, SELFPAY ==
[2020-10-23 17:00] VITALS: BP 144/106; PULSE 127; RESP 16; TEMP 37.1; O2SAT 100; BMI 32.5
[2020-10-23 17:55] VITALS: BP 139/94; PULSE 106; RESP 15; O2SAT 99
[2020-10-23] MEDS: Mag Hydrox/Al Hydrox/Simeth 30 ML UDC PO (19:12)
[2020-10-23 19:13] VITALS: BP 126/84; PULSE 91; RESP 18; O2SAT 98
--- NOTE | 2020-10-23 19:26 | ED.DEP ---
ED Disposition - Plan for ED Patient: Instructions: ED Pharyngitis, Viral Prescriptions: Hydrocodone Bitart/Apap 5-325 [[place] 5MG-325MG] 1 tab PO Q6H PRN PRN 3 Days #10 tab PRN Reason: Pain Prescription Printed Referrals: Azar Smith MD [Primary Care Provider] -
--- NOTE | 2020-10-23 19:29 | ED.DCSUM_ITS ---
- ER Visit Summary Date of Service: 10/23/20 Chief Complaint: Sore throat History of Present Illness: The patient is a 29 F presenting with sore throat and bilateral ear pain. She states this has been ongoing for the past 1 month. She was seen by ENT today at [facility] in [place]. 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 She states they changed her antacids prescriptions and she has a follow up appointment next week. She states she was treated with lidocaine in the office and her pain was improved. She states when this wore off she now has pain when she swallows. No difficulty breathing or swallowing. Physical Examination: Vitals are stable. Patient is afebrile. Alert no acute distress. HEENT exam pharyngeal erythema with no exudate. Uvula midline. TMs normal bilaterally. Neck is supple. No meningismus Lungs are clear and equal bilaterally. Heart is regular rate and rhythm. Abdomen is soft nontender nondistended. Extremities are unremarkable. Skin is warm and dry. No focal neurologic deficit. Remainder of exam is unremarkable. Emergency Department Course and Treatment: Attempted to reach patient's ENT that she saw today. I did not receive a call back. She is given a GI cocktail with some improvement of her throat pain but she continues to have ear pain. She was given a short course of [place]. She is already on prednisone. She is advised to follow-up with her ENT. Advised return to the ED for worsening complaints. Disposition: Discharge home Impression: Sore throat, vocal cord granuloma, GERD This note was generated with [employer] dictation software. It may contain incorrect words, spelling, and punctuation that were not noted in review of the chart prior to signing ED Disposition - Plan for ED Patient: Instructions: ED Pharyngitis, Viral Prescriptions: Hydrocodone Bitart/Apap 5-325 [[place] 5MG-325MG] 1 tab PO Q6H PRN PRN 3 Days #10 tab PRN Reason: Pain Prescription Printed Referrals: Azar Smith MD [Primary Care Provider] -
== END 2020-10-23 19:45 | disposition home or self-care (01) ==
LOC: ED 17:25
PROVIDERS: Emergency Provider Emergency Medicine; PCP Family Medicine
DX: J02.9 Acute pharyngitis, unspecified (principal); J38.3 Other diseases of vocal cords; K21.9 Gastro-esophageal reflux disease without esophagitis
CPT/HCPCS: 99283

== ENCOUNTER 2021-03-18 16:12 | Emergency (ER) | payer MEDICAID, SELFPAY ==
[2021-03-11 16:31] VITALS: BMI 33.7
[2021-03-18 16:13] VITALS: BP 137/78; PULSE 111; RESP 18; TEMP 36.6; O2SAT 98; BMI 34.1
[2021-03-18 16:40] VITALS: BP 123/83; PULSE 107; RESP 15; TEMP 36.6; O2SAT 99
[2021-03-18 17:41] VITALS: BP 110/80; PULSE 94; RESP 28; O2SAT 98
--- NOTE | 2021-03-18 17:44 | RAD_ITS ---
INDICATION: cough EXAMINATION/TECHNIQUE: X-RAY - XR Chest 1 View COMPARISON: 10/07/2020. FINDINGS: The lungs are clear. The cardiomediastinal silhouette is unremarkable. No pleural effusion or pneumothorax. No acute osseous abnormalities. RAD/Chest 1 View (Portable) IMPRESSION: No acute radiographic abnormalities. Electronically Signed: Volodymyr Lewis MD at 17:54 EDT Tel , Service support ,
--- NOTE | 2021-03-18 17:50 | EDS_ITS ---
HPI History of Present Illness Chief Complaint: Fatigue Informant: patient Onset/Context/Timing Onset: Days Context: Gradual Onset Narrative Narrative: Patient is a 30-year-old female currently 22 weeks presenting with chest tightness, cough and runny nose. Patient states she had symptoms for the past 3 days. She states everyone in her household has similar symptoms. She has developed some tightness in her chest and pain in her lungs and towards her back left greater than right over the past few days. She notes her symptoms are worse at night especially when her nose is running. She denies any fever. She has used one of her legs. She has a history of DVT. 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 She had no complications since. She states she works from [employer] make sure she did not have Covid. 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 No other complaints at this time. [facility] Medical History Acid reflux Anemia complicating Asthma Breast disorder Current smoker Femur fracture Post depression Thymoma Thyroid disease Home Medications colestipol 2 gm PO DAILY 09/16/20 [History Last Taken Unknown] omeprazole 20 mg PO DAILY 09/16/20 [History Last Taken Unknown] colestipol 1 g PO DINNER 10/05/20 [History Last Taken Unknown] epinephrine 0.3 mg IM X1 #1 syringe 10/05/20 [Rx Last Taken Unknown] famotidine 20 mg PO BID #10 tab 10/05/20 [Rx Last Taken Unknown] cetirizine 10 mg PO BID 10/18/20 [History Last Taken Unknown] prednisone 50 mg PO DAILY 10/19/20 [History Last Taken Unknown] Allergy/AdvReac Type Severity Reaction Status Date / Time gentamicin [Gentamicin] Allergy Unknown Other Verified 03/18/21 16:13 cat dander Allergy Other Verified 03/18/21 16:13 grass pollen Allergy Hives Verified 03/18/21 16:13 Family History Aunt Abuse, drug or alcohol maternal Thyroid disorder maternal Mother Abuse, drug or alcohol PTSD (post-traumatic stress disorder) Anxiety and depression Myocardial infarction Melanoma Grandfather Abuse, drug or alcohol maternal Brother Melanoma Grandmother Heart disease maternal Surgical History H/O dilation and curettage History of colonoscopy History of esophagogastroduodenoscopy History of laparoscopic cholecystectomy History of thoracotomy History of tonsillectomy and adenoidectomy Social History Smoking Status: Current every day smoker tobacco type: cigarettes Electronic Cigarette Use: not used second hand exposure: Yes ROS ROS ED Constitutional Constitutional ED: Denies chills or fever(s) Eyes Eyes: Denies blurry vision ENT ENT ED: Reports rhinorrhea; Denies ear pain or sore throat Cardiovascular Cardiovascular: Reports other Details: Chest tightness ; Denies chest pain or orthopnea Respiratory/Chest Respiratory/Chest: Reports cough and sputum; Denies dyspnea, dyspnea on exertion or orthopnea Gastrointestinal Gastrointestinal: Denies abdominal pain, nausea or vomiting Genitourinary Genitourinary ED: Denies dysuria or hematuria Musculoskeletal Musculoskeletal: Denies arthralgias or myalgias Integumentary Denies rash Neurologic Neurologic: Denies headache(s) or weakness EXAM Physical Exam Const Vital Signs: 03/18/21 16:13 03/18/21 16:40 03/18/21 17:41 Temperature 97.9 F 97.9 F Temperature Source Temporal Temporal Pulse Rate 111 H 107 H 94 Respiratory Rate 18 15 28 H Blood Pressure 137/78 H 123/83 H 110/80 Blood Pressure Mean 97 96 90 Pulse Ox 98 99 98 Oxygen Delivery Method Room Air Room Air Room Air 03/18/21 18:56 Temperature Temperature Source Pulse Rate 92 Respiratory Rate 18 Blood Pressure 102/59 L Blood Pressure Mean Pulse Ox 98 Oxygen Delivery Method Positive well nourished and well developed General Appearance ED: well developed HEENT Reports TM's clear, moist mucous membranes and other Normal oropharynx Tympanic Membrane ED: Yes TM's clear Eyes PERRL and EOMs intact bilaterally Neck no lymphadenopathy, supple and no JVD Chest Wall inspection of chest normal Resp normal respiratory effort and clear to auscultation bilaterally Auscultation: Negative for wheezes or diminished lung sounds Cardio regular rate, regular rhythm and no murmurs GI normal to inspection, nondistended, normoactive bowel sounds GI Narrative: Gravid abdomen around the level of the umbilicus Back/Spine no CVA tenderness Extremity normal to inspection General Extremety ED: Negative for edema or tenderness General Extremity: Negative for edema Neuro oriented x3 Sensorium / Orientation: alert Motor Exam: Negative for general weakness Psych mental status grossly normal Skin no rashes or lesions noted MDM MDM MDM Narrative Medical decision making narrative: Patient evaluated for 3 days of cold/flulike symptoms. She is mildly tachycardic on arrival however patient states she has a history of sinus tachycardia. She has some associated chest tightness but no chest pain. She is not short of breath. Patient is 22 weeks . Given the fact that she has multiple sick contacts as well as other respiratory symptoms I think this is likely viral. Covid swab is negative. Patient is vaccinated for Covid several lower suspicion for Covid. Chest x-rays not show any acute infiltrate. Patient be treated symptomatically with [id number] decongestants and Tylenol. She is instructed to follow-up with her primary care doctor. She has an inhaler to use at home. She currently does not have any wheezing. Sounds like a lot of her cough is post nasal drip. Radiography Chest X-Ray - ED: 1 View, Read by ED Physician, Read by Radiologist and No Acute Disease Diagnostic Testing: Radiology Impression Chest X-Ray 03/18/21 17:44 IMPRESSION: No acute radiographic abnormalities. Electronically Signed: Volodymyr Lewis MD at 17:54 EDT Tel , Service support , Rhythm Strip Rhythm Strip: Sinus Rhythm Rate: 95 Ectopy: None EKG Initial EKG: Attestation: I personally reviewed and interpreted this EKG as follows: Interpretation: Sinus Tachycardia Comments: Sinus tachycardia at a rate of 105 Normal axis Normal intervals Normal ST segments Discharge Plan Triage Chief Complaint: Fatigue ED Provider: Caitie Gardner Dx/Rx/DC Orders Clinical Impression: URI with cough and congestion Instructions: ED URI, Viral, No Abx (Adult) Prescriptions: No Action omeprazole 20 MG capsule 20 mg PO DAILY RF: 0 colestipol 1 GM tablet 2 gm PO DAILY RF: 0 epinephrine 0.3 MG syringe 0.3 mg IM X1 Qty: 1 RF: 0 colestipol 1 GM tablet 1 g PO DINNER RF: 0 famotidine 20 MG tablet 20 mg PO BID Qty: 10 RF: 0 cetirizine 10 MG capsule 10 mg PO BID RF: 0 prednisone 20 MG tablet 50 mg PO DAILY RF: 0 Primary Care Provider: Azar Smith Referrals: Azar Smith MD [Primary Care Provider] - Activity Restrictions/Additional Instructions: Your Covid test was negative today. Take [id number] Tylenol cold and flu as needed for your symptoms. Please follow-up with your MECHANICAL SPREADER OPERATOR. Return the emergency room with any worsening symptoms. Disposition Disposition: Home, Self Care Discharge Date/Time: 03/18/21 18:57
--- NOTE | 2021-03-18 17:54 | EKG12_ITS ---
Test Reason : CP Blood Pressure : / mmHG Vent. Rate : 105 BPM Atrial Rate : 105 BPM P-R Int : 128 ms QRS Dur : 074 ms QT Int : 342 ms P-R-T Axes : 035 003 019 degrees QTc Int : 452 ms Sinus tachycardia Otherwise normal ECG Confirmed by ABE CANDELARIA, NORMA ([id number]), commercial production editor KRZYSZTOF PERALTA ([id number]) on 03/20/2021 9:46:05 AM Referred By: KIRILL Confirmed By:NORMA FISH MD
[2021-03-18 18:56] VITALS: BP 102/59; PULSE 92; RESP 18; O2SAT 98
== END 2021-03-18 18:57 | disposition home or self-care (01) ==
PROVIDERS: Emergency Provider Emergency Medicine; PCP Family Medicine
DX: O99.512 Diseases of the respiratory system complicating pregnancy, second trimester (principal); J06.9 Acute upper respiratory infection, unspecified; O99.332 Smoking (tobacco) complicating pregnancy, second trimester; F17.210 Nicotine dependence, cigarettes, uncomplicated; Z3A.22 22 weeks gestation of pregnancy
CPT/HCPCS: 71045; 87426; 93005; 99282

== ENCOUNTER 2021-05-12 22:43 | Emergency (ER) | payer MEDICAID, SELFPAY ==
[2021-05-12 22:44] VITALS: BP 107/88; PULSE 104; RESP 18; TEMP 36.6; O2SAT 98; BMI 36.3
[2021-05-13 00:05] VITALS: RESP 16
--- NOTE | 2021-05-13 00:06 | EX.ED.VIS.UR ---
HPI HPI - URI History of Present Illness Chief Complaint: Cough Detail of Chief Complaint: Sore throat. Informant: patient Onset/Context/Timing Onset: Today Context: Sudden Onset Timing: Intermittent Current Severity: Mild Maximum Severity: Mild Narrative Narrative: 30-year-old female currently 30 weeks with a due date 112 to have a scheduled . She is G6, P4 Ab1 with having a miscarriage. Patient states she was having some nausea took Phenergan then threw up. She is at the end of her emesis there was a very small amount of blood. She has noticed no black or bloody stools. She states that she has a sore throat. Able to swallow. No trouble breathing. She denies any abdominal pain or vaginal bleeding. Prior similar symptoms: No Recent Illness/Hospitalization: No ROS ROS ED ROS Narrative Nausea and vomiting. Review of Systems ROS Unobtainable: Denies due to encephalopathy Constitutional Constitutional ED: Denies chills or fever(s) Eyes Eyes: Denies change in vision ENT ENT ED: Reports sore throat; Denies ear pain Cardiovascular Cardiovascular: Denies chest pain Respiratory/Chest Respiratory/Chest: Reports cough; Denies dyspnea Gastrointestinal Gastrointestinal: Reports nausea and vomiting; Denies abdominal pain, constipation, diarrhea or melena Genitourinary Genitourinary ED: Denies dysuria or hematuria Musculoskeletal Musculoskeletal: Denies myalgias Integumentary Denies rash Neurologic Neurologic: Denies headache(s) Psychiatric Psychiatric: Denies depression Endocrine Endocrinology: Denies polyuria Hematologic/Lymphatic Hematologic/Lymphatic: Denies easy bruising Allergic/Immunologic Allergic/Immunologic ED: Denies urticaria PFSH PFSH Medical History Acid reflux Anemia complicating Asthma Breast disorder Current smoker Femur fracture Post depression Thymoma Thyroid disease Home Medications colestipol 2 gm PO DAILY 09/16/20 [History Last Taken Unknown] omeprazole 20 mg PO DAILY 09/16/20 [History Last Taken Unknown] colestipol 1 g PO DINNER 10/05/20 [History Last Taken Unknown] epinephrine 0.3 mg IM X1 #1 syringe 10/05/20 [Rx Last Taken Unknown] famotidine 20 mg PO BID #10 tab 10/05/20 [Rx Last Taken Unknown] cetirizine 10 mg PO BID 10/18/20 [History Last Taken Unknown] prednisone 50 mg PO DAILY 10/19/20 [History Last Taken Unknown] Allergy/AdvReac Type Severity Reaction Status Date / Time gentamicin [Gentamicin] Allergy Unknown Other Verified 05/13/21 00:05 cat dander Allergy Other Verified 05/13/21 00:05 grass pollen Allergy Hives Verified 05/13/21 00:05 Family History Aunt Abuse, drug or alcohol maternal Thyroid disorder maternal Mother Abuse, drug or alcohol PTSD (post-traumatic stress disorder) Anxiety and depression Myocardial infarction Melanoma Grandfather Abuse, drug or alcohol maternal Brother Melanoma Grandmother Heart disease maternal Surgical History H/O dilation and curettage History of colonoscopy History of esophagogastroduodenoscopy History of laparoscopic cholecystectomy History of thoracotomy History of tonsillectomy and adenoidectomy Social History Smoking Status: Current every day smoker tobacco type: cigarettes Electronic Cigarette Use: not used second hand exposure: Yes EXAM Physical Exam Narrative Exam Narrative: Well-appearing 30-year-old female no acute distress vital signs stable afebrile. She is obviously . HEENT exam normal. Posterior pharynx normal. There is no erythema or exudate. No trouble swallowing or breathing. No stridor. No drooling. She has had prior tonsillectomy. Neck nontender no lymphadenopathy. Trachea midline. Lungs clear to auscultation. Heart regular rhythm no murmur. Abdomen soft nondistended normal bowel sounds no peritoneal signs. Gravid nontender uterus. Moving all 4 extremities. Nontender no edema. Const Vital Signs: 05/12/21 22:44 05/13/21 00:05 Temperature 97.9 F Temperature Source Temporal Pulse Rate 104 H Respiratory Rate 18 16 Blood Pressure 107/88 H Blood Pressure Mean 94 Pulse Ox 98 Oxygen Delivery Method Room Air Positive well nourished and well developed; Negative for obese, cachectic or contractures General Appearance ED: well developed and NAD; Negative for cachectic, contractures, cyanotic, diaphoretic or pallor Nutritional Appearance: Negative for cachectic or obese HEENT Reports moist mucous membranes; Denies dry mucous membranes normocephalic and atraumatic Face and Sinus: Negative for facial tenderness External Ear: external ears normal Mouth ED: No dry mucous membranes Mouth: No dry mucous membranes Throat: posterior oropharynx normal; Negative for tonsils abnormal or posterior oropharynx abnormal Eyes PERRL and EOMs intact bilaterally Neck no lymphadenopathy, supple, no meningeal signs and no JVD General: Negative for anterior neck swelling or lymphadenopathy Resp normal respiratory effort and clear to auscultation bilaterally Auscultation: Negative for rales, rhonchi or wheezes Cardio S1 normal heart sound, S2 normal heart sound and no murmurs Rate: regular rate Rhythm: regular rhythm GI non-tender, non-distended and no masses Inspection: Negative for abdominal distention Auscultation: normoactive bowel sounds Palpation: soft; Negative for tender or guarding Back/Spine no CVA tenderness and normal ROM General Back: Negative for CVA tenderness Cervical Spine: Negative for cervical spine tenderness Extremity normal to inspection Neuro oriented x3 and CN's II-XII intact bilaterally Sensorium / Orientation: alert, oriented to person, oriented to place and oriented to time; Negative for orientation impaired, lethargic or stuporous Motor Exam: strength 5/5 throughout Psych mental status grossly normal Skin General Skin Exam: Negative for jaundice or pallor Lesions: no lesions Rashes: no rashes and No rashes noted MDM MDM MDM Narrative Medical decision making narrative: Patient with nausea vomiting . Very small amount of blood. Exam is totally benign. The posterior pharynx is normal. She has no signs of any type of bacterial infection of the throat. No signs of any significant bleeding. This may have been a small Angela-Schmid tear I even question that. She will continue her on her nausea medication at home she did take Zofran prior to arrival and her nausea is resolved. Follow-up as needed. Return if worse. Discharge Plan Triage Chief Complaint: Cough ED Provider: Nick Carreon Dx/Rx/DC Orders Clinical Impression: Nausea and vomiting Instructions: ED Vomiting (Adult) Prescriptions: No Action omeprazole 20 MG capsule 20 mg PO DAILY RF: 0 colestipol 1 GM tablet 2 gm PO DAILY RF: 0 epinephrine 0.3 MG syringe 0.3 mg IM X1 Qty: 1 RF: 0 colestipol 1 GM tablet 1 g PO DINNER RF: 0 famotidine 20 MG tablet 20 mg PO BID Qty: 10 RF: 0 cetirizine 10 MG capsule 10 mg PO BID RF: 0 prednisone 20 MG tablet 50 mg PO DAILY RF: 0 Primary Care Provider: Azar Smith Referrals: Azar Smith MD [Primary Care Provider] - 3-5 Days if not improving Activity Restrictions/Additional Instructions: Plenty of fluids and rest. Warm salt water gargling to help with throat. Follow-up if not improving.Follow-up if you notice more blood or black or bloody stools. Use your Zofran for nausea. Disposition Disposition: Home, Self Care
== END 2021-05-13 00:16 | disposition home or self-care (01) ==
LOC: ED 05-13 00:13
PROVIDERS: Emergency Provider Emergency Medicine; PCP Family Medicine
DX: O21.2 Late vomiting of pregnancy (principal); O99.333 Smoking (tobacco) complicating pregnancy, third trimester; F17.210 Nicotine dependence, cigarettes, uncomplicated; Z3A.30 30 weeks gestation of pregnancy
CPT/HCPCS: 99282

== ENCOUNTER 2021-06-02 14:50 | Outpatient (CLI) | payer MEDICAID, SELFPAY ==
[2021-06-02 15:14] VITALS: BMI 35.9
[2021-06-02 15:19] VITALS: TEMP 36.3
[2021-06-02 15:21] VITALS: BP 117/62; PULSE 102
--- NOTE | 2021-06-02 16:06 | OB.TRI.NOTE ---
HPI - General HPI Narrative JAS PRIETO, is a 30 F @ 32.6 weeks who presents to triage c/o abdominal pain- feels it is more muskular in nature as she was doing a lot of lifting. pt denies VB, LOF. good FM. PFSH PFSH Medical History Acid reflux Anemia complicating Asthma Breast disorder Current smoker Femur fracture Post depression Thymoma Thyroid disease Home Medications colestipol 2 gm PO DAILY 09/16/20 [History Last Taken Unknown] omeprazole 20 mg PO DAILY 09/16/20 [History Last Taken Unknown] colestipol 1 g PO DINNER 10/05/20 [History Last Taken Unknown] epinephrine 0.3 mg IM X1 #1 syringe 10/05/20 [Rx Last Taken Unknown] famotidine 20 mg PO BID #10 tab 10/05/20 [Rx Last Taken Unknown] cetirizine 10 mg PO BID 10/18/20 [History Last Taken Unknown] prednisone 50 mg PO DAILY 10/19/20 [History Last Taken Unknown] Allergy/AdvReac Type Severity Reaction Status Date / Time gentamicin [Gentamicin] Allergy Unknown Other Verified 05/13/21 00:05 cat dander Allergy Other Verified 05/13/21 00:05 grass pollen Allergy Hives Verified 05/13/21 00:05 Family History Aunt Abuse, drug or alcohol maternal Thyroid disorder maternal Mother Abuse, drug or alcohol PTSD (post-traumatic stress disorder) Anxiety and depression Myocardial infarction Melanoma Grandfather Abuse, drug or alcohol maternal Brother Melanoma Grandmother Heart disease maternal Surgical History H/O dilation and curettage History of colonoscopy History of esophagogastroduodenoscopy History of laparoscopic cholecystectomy History of thoracotomy History of tonsillectomy and adenoidectomy Social History Smoking Status: Current every day smoker tobacco type: cigarettes Electronic Cigarette Use: not used second hand exposure: Yes History Elective abortions Hx Para 3 Spontaneous abortions Hx # Term Pregnancies Ectopic pregnancies Hx # Pregnancies Multiple births # of living children NST FHR Rate Baby A Baseline: \135 Variability:: Moderate Accelerations:: 15 x 15 Decelerations:: None NST Reactive:: Yes FHR Category:: Category I Uterine Activity:: occasional irritability Assessment & Plan (1) 32 weeks gestation of : (2) Abdominal pain affecting : PLAN: 30yo @ 32.6 weeks- abdominal pain in 1) NST reactive- well being established- [place] home
== END 2021-06-02 16:20 | disposition home or self-care (01) ==
LOC: WPOUT 14:58 → WP 14:59
PROVIDERS: PCP Family Medicine; Referring Provider Obstetrics & Gynecology; Visit Provider Obstetrics & Gynecology
DX: O26.899 Other specified pregnancy related conditions, unspecified trimester (principal); R10.9 Unspecified abdominal pain; Z3A.32 32 weeks gestation of pregnancy
CPT/HCPCS: 59025; 59050; 87426; 99218; G0378

== ENCOUNTER 2021-07-15 09:35 | Inpatient (IN) | payer MEDICAID, SELFPAY ==
--- NOTE | 2021-07-10 12:33 | PCM.HP.BLA ---
History and Physical Date of Admission: 07/15/21 Pre-Op History and Physical ? HPI: The patient is a 30 year old female presenting for pre-operative visit. She is scheduled for and bilateral salpingectomy , for repeat cs and desires sterilization on 07/15/21. Procedure discussed along with risks, benefits and complications. Other alternatives discussed for management. Consent form signed? Yes. ? ? PAST MEDICAL HISTORY PAST MEDICAL HISTORY Diagnosis Date ? Abnormal Pap smear of cervix AGE 15 ? +HPV ? Adjustment disorder ? ? Anemia ? ? ANEMIA WITH ? Asthma ? ? CHILDHOOD ASTHMA ? Breast disorder ? ? NERVE DAMAGE IN LEFT BREAST DUE TO PREVIOUS SURGERY ? Chlamydia 2015 ? FRACTURE AGE 9 ? FEMUR ? H/O sinus tachycardia ? ? 2010 ? History of drug abuse in remission (HCC) ? ? opiates ? PONV (postoperative nausea and vomiting) ? ? depression ? ? Thymoma ? ? THYMOLIPOMA ? Thyroid disease ? ? ? PAST SURGICAL HISTORY PAST SURGICAL HISTORY Procedure Laterality Date ? DELIVERY ONLY ? ? ? , low transverse ? DELIVERY ONLY ? ? ? , low transverse ? DELIVERY ONLY ? 06/02/2017 ? DELIVERY ONLY ? ? ? COLONOSCOPY GEN ANES ? ? ? Colonoscopy and endoscopy ? D&C (INCOMPLETE AB), ANY TRIMESTER ? ? ? LAP CHOLECYSTECT/CHOLANGIOGRAPHY ? 09-19-12 ? LAPAROSCOPIC CHOLEYCYSTECTOMY ? 09/19/2012 ? REMOVAL ADENOIDS,PRIMARY,<12 Y/O ? ? ? Adenoidectomy w/ tonsils ? REMOVAL OF TONSILS,<12 Y/O ? ? ? Tonsillectomy w/ adenoids ? THORACOTOMY, CYST REMOVAL ? 2006, 2010 ? 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 ? ? CURRENT MEDICATIONS Current Outpatient Medications Medication Sig Dispense Refill ? promethazine (PHENERGAN) 12.5 mg tablet Take 1-2 tablets by mouth every 6 hours as needed. 30 tablet 0 ? ondansetron orally disintegrating (ZOFRAN ODT) 4 mg disintegrating tablet Take 1 tablet by mouth every 8 hours as needed. DISSOLVE ON TONGUE 30 tablet 0 ? albuterol HFA (VENTOLIN HFA) 90 mcg/actuation inhaler Inhale 2 Puffs as instructed every 4 hours as needed for wheezing/shortness of breath. 18 g 0 ? blood sugar diagnostic test strip 1 Strip four times daily. Use as instructed 120 Strip 9 ? Lancets lancets 1 Each four times daily. Use as instructed 120 Each 9 ? omeprazole (PRILOSEC) 20 mg capsule Take 20 mg by mouth once daily. ? ? ? pyridoxine, vitamin B6, (VITAMIN B-6) 50 mg tablet Take 1 tablet by mouth twice daily. 60 tablet 2 ? Yamghlbe-Qb-Cbm-Fe-FA ( VITAMIN) tab Take 1 tablet by mouth once daily. 100 tablet 1 ? aluminum & magnesium hydroxide-simethicone (MYLANTA MAXIMUM STRENGTH) 400-400-40 mg/5 mL suspension Take 30 mL by mouth every 6 hours as needed. 120 mL 1 ? famotidine (PEPCID) 20 mg tablet Take 1 tablet by mouth twice daily. 60 tablet 11 ? EPINEPHrine (EPIPEN) 0.3 mg/0.3 mL auto-injector Inject 0.3 mL intramuscularly as needed (For allergic reaction). Use as directed 2 Each 1 ? colestipol (COLESTID) 1 gram tablet Take 3 tablets by mouth once daily. (Patient not taking: Reported on 01/10/2021 ) 90 tablet 5 ? No current facility-administered medications for this visit. ? ? ALLERGIES: Cats, Gentamicin, and Grass Pollen ? PERSONAL HISTORY: SOCIAL HISTORY Social History ? Tobacco Use ? Smoking status: Current Every Day Smoker ? ? Packs/day: 1.00 ? ? Years: 15.00 ? ? Pack years: 15.00 ? Smokeless tobacco: Never Used Vaping Use ? Vaping Use: Never used Substance Use Topics ? Alcohol use: No ? Drug use: Yes ? ? Frequency: 3.0 times per week ? ? Types: Marijuana ? ? Comment: denies use since 07/2020 ? FAMILY HISTORY: FAMILY HISTORY FAMILY HISTORY Problem Relation Age of Onset ? Alcohol/Drug Mother ? ? DRUG ? Psychiatry Mother ? ? PTSD,ANXIET/DEPRESSION ? Heart Mother ? ? Cancer Mother ? ? Melanoma ? Suicide / Suicidal Behaviors Sister ? ? Cancer Brother ? ? Melanoma ? Cancer Maternal Grandmother ? ? Heart Maternal Grandmother ? ? Alcohol/Drug Maternal Grandfather ? ? ETOH ? Cancer Maternal Grandfather ? ? LUNG ? ADD/ADHD Daughter ? ? Asthma Daughter ? ? No Known Problems Son ? ? No Known Problems Son ? ? Alcohol/Drug Maternal Aunt ? ? DRUG ? Thyroid Maternal Aunt ? ? ? REVIEW OF SYMPTOMS: negative except as noted above PHYSICAL EXAMINATION: ? VITALS: Blood pressure 126/76, weight 180 lb (81.6 kg), last menstrual period 10/15/2020. ? GENERAL: The patient is well nourished, well hydrated in no acute distress. , The patient is oriented to time, place, and person. NECK: full range of motion Abd: gravid, non tender. ? IMPRESSION: Repeat cs and desires sterilization ? PLAN: R/cs and bilateral salpingectomy @ 39 weeks gestation. ? Pt has been counseled on risks/benefits and alternatives of surgery including but not limited to anesthesia, bleeding, infection, injury to pelvic structures including bowel, bladder, ureters and vessels. Pt wishes to proceed with surgery at this time. Pre op instructions reviewed covid testing ordered ? ? ? I have reviewed and updated past medical and surgical history, medications and allergies Robyn Vallejo MD
--- NOTE | 2021-07-10 14:45 | PCM.DC ---
Discharge Instructions Diet Discharge Diet: No restrictions Activity May resume sexual activity in: 2 weeks Lifting Restrictions: 20-25 lbs Dressing / Incision Call your doctor if your incision/area has: Continuous Slow Oozing, Sudden Increased Bleeding, Increased Pain/ Swelling, Increased Redness, Foul Smelling Discharge and Swelling at the incision site Call your doctor if you observe: Fever of 101 or Higher, Inability to urinate, Inability to have a bowel movement, Using more than 1 pad per hour and Uncontrolled pain Additional Dressing/Incision Instructions:: You have skin glue over your incision sites, do not pick off. You may shower and let the soap and water run over the incision sites and dab dry. Follow Up Care Please Follow Up With: Robyn Mccartney MD When: 1-2 weeks post OP if you need an appointment please call [phone] Test Results: Test results from this visit will be discussed in further detail at your follow-up appointment, if applicable. Discharge Plan Admission Attending Provider: Robyn Mccartney Primary Care Provider: Azar Smith Discharge Orders/Prescriptions Prescriptions: No Action omeprazole 20 MG capsule 20 mg PO DAILY RF: 0 epinephrine 0.3 MG syringe 0.3 mg IM X1 Qty: 1 RF: 0 famotidine 20 MG tablet 20 mg PO BID RF: 0 Disposition Discharge Orders: Discharge Patient (Routine); Ordered 07/10/21 Ordered By: Dr. Robyn Mccartney
[2021-07-15] VITALS (19 sets, daily range): BP systolic 101–118; BP diastolic 47–72; PULSE 70–99; RESP 12–18; TEMP 36.1–36.7; O2SAT 97–99; BMI 35.2
[2021-07-15] MEDS: Lactated Ringers 1,000 ML 999 ML IV (10:05)
[2021-07-15 10:32] LABS: Absolute Neutrophil Count 10.8 X10^3/uL (2.0-7.7); Basophil# 0.05 X10^3/uL; Basophil% 0.3 % (0-1); Eosinophil# 0.11 X10^3/uL; Eosinophils% 0.8 % (0-5); Hematocrit 36.5 % (37-47); Lymphocyte % 19.5 % (19-41); Mean Corp Hgb Conc 32.9 g/dL (32-36); Mean Corpuscular Hgb 26.1 pg (27.0-32.0); Mean Corpuscular Volume 79.5 fL (81-99); Mean Platelet Vol. 11.1 fl (6.2-12.0); Monocyte# 0.54 X10^3/uL; Monocyte% 3.8 % (0-10); NRBC Flagged by Analyzer 0 % (0-5); Neutrophil # 10.79 X10^3/uL (2.7-7.7); Neutrophil % 75.1 % (47-70); Platelet Count 325 K/mm3 (150-450); RBC Distribution Width CV 15.6 % (11.6-14.6); RBC Distribution Width SD 44.4 fl (35.1-43.9); Red Blood Count 4.59 M/mm3 (4.2-5.4); White Blood Count 14.4 K/mm3 (4.4-11.0)
[2021-07-15] MEDS: Lactated Ringers 1,000 ML 150 ML IV (11:06)
[2021-07-15] MEDS: Acetaminophen 500 MG Tablet 1000 MG PO ×3 (11:15→23:22)
[2021-07-15 11:40] LABS: Bedside Glucose 99 mg/dL (70-110)
[2021-07-15] MEDS: Sodium Citrate/Citric Acid 30 ML UDC PO (11:45)
[2021-07-15 11:57] LABS: Amphetamine Urine VISTA NEGATIVE (<1000 ng/mL); Barbiturate Urine VISTA NEGATIVE (< 200 ng/mL); Benzodiazepine Urine VISTA NEGATIVE (< 200 ng/mL); Cocaine Urine VISTA NEGATIVE (< 300 ng/mL); Ecstacy Urine VISTA NEGATIVE (< 500 ng/mL); Methadone Urine VISTA NEGATIVE (< 300 ng/mL); PCP Urine VISTA NEGATIVE (< 25 ng/mL); THC Urine VISTA NEGATIVE (< 50 ng/mL); Vista UDS pH Range 6
[2021-07-15] MEDS: Cefazolin 2 GM in 0.9% Normal Saline 100 ML IV (12:03)
--- NOTE | 2021-07-15 12:32 | FALS_PTH ---
PATIENT: JAS PRIETO LOC: [facility] U#:[id number] AGE/SX: 30/F ROOM: WP009 RE07/15/[address]: Dr. Robyn Mccartney, MDDOB: 1990 BED: 1 DIS: 07/16/2021 SPEC #: [id number] RECD: 07/15/21 13:30 STATUS: NAZARIO DOUG #: [id number] ELISE: 07/15/21 12:[address]: Robyn Mccartney DEPT: SURGICAL PATHOLOGY RECD BY: Torie Arellano ENTERED: 07/16/21 08:40 SP TYPE: FALL TUBES OTHR DR: Dr. Azar Smith MD Tissues: Fallopian tube Procedures: Surgery Specimen Level II HEADER OPERATION: Tubal ligation PRE-OP DIAGNOSIS: Tubal ligation TISSUE SUBMITTED: Fallopian tubes MICROSCOPIC DIAGNOSIS Bilateral fallopian tubes, salpingectomy: Bilateral fallopian tubes, no pathologic diagnosis. 07/18/21 MICROSCOPIC DESCRIPTION Slides are reviewed. GROSS DESCRIPTION Received in fixative is one container labeled with the patient's name and designated bilateral fallopian tubes. The specimen consists of bilateral fallopian tubes including fimbrial ends with the right identified with a suture. The right fallopian tube measures 5.5 cm in length and 0.7 cm in diameter. The left fallopian tube measures 5.0 cm in length and 0.6 cm in diameter. Sections reveal unremarkable cut surfaces. Analytical Clerk sections are submitted in two cassettes as follows: 1 - right fallopian tube, 2 - left fallopian tube. / SJ:cc 07/16/21 TC:4 CPT: 30399 x2
--- NOTE | 2021-07-15 12:51 | OP.PCM_ITS ---
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 sHe was placed in the supine position. She was then prepped and draped in normal sterile fashion. Once spinal anesthesia was found to be adequate skin incision was made with a scalpel in a Pfannenstiel fashion. It was carried down to the underlying layer of the fascia. Fascia was then incised midline with scapel and extended laterally using curved staton. 2 straight Mayra's were placed in the superior aspect of the fascial edge and the rectus muscles were dissected off sharply. Attention was then turned to the inferior aspect where again the fascial edge was grasped with 2 straight Mayra clamps tented up and the rectus muscle dissected off sharply . At this time the rectus muscles were grasped in the midline using 2 Allis clamps and scalpel was used to separate the rectus muscles. Using blunt force the peritoneum was then entered. Metzenbaums were used to take down the rectus muscles inferiorly as well as the peritoneum. At this time the vesicouterine peritoneum was identified. Adhesions taken down- thin lower uterine segment. Uterine incision was made in a low transverse fashion with the scalpel and then entered bluntly. Gentle opposing traction was placed to extend the uterine incision. The membranes were ruptured amniotic fluid clear. Infant's head was then brought to the uterine incision was delivered atraumatically Loose nuchal x 1 reduced then delivery of the rest infant's body. At this time delayed cord clamping was performed mouth nose were suctioned. Infant was then handed to the waiting nursery team. The placenta was then removed with gentle traction. The uterus was removed from the intra- abdominal cavity is wrapped in a moist lap. He was cleared of all clots and debris using a moist lap. Ring clamps were placed on the uterine angles. #1 Vicryl suture was used in a running locked fashion for the first layer. Followed by second imbricating layer with #1 Vicryl. Tubes and ovaries were evaluated they were normal. The tubes were grasped in an avascular area with the [email or web address] LigaSure device was used to coagulate seal and ligate along the mesosalpinx to remove the entire tube. First this was performed on the right side. The uterus was then placed back in the intra-abdominal cavity. This was then repeated on the left side. Next hemostasis appreciated. Samy was placed. Great hemostasis was appreciated at this time the uterine incision was again evaluated good hemostasis was appreciated samy placed. The peritoneum and muscle were grasped with Kellys and reapproximated using #2 Vicryl suture in a running fashion. The fascia was then reapproximated using #1 Vicryl in a running fashion. Subcutaneous layer was evaluated and Bovie was used for any small oozing that was noted per #2-0 plain gut suture was then used to reappr oximate the subcutaneous layer 4-0 Vicryl on a Kt needle was used to reapproximate the skin in a subcutaneous fashion. Dry sterile dressing was applied. Instrument lap needle count were correct ?2. Anticipated normal postoperative course for this patient. Presentation: Positive for Vertex Amniotic Membrane Rupture Type: Artificial Amniotic Fluid Description: Clear Placental Delivery Description: Manual Removal Placenta Disposition: [facility] Specimen(s) Sent to Pathology: bilateral fallopian tubes Cord Vessel Description: 3 Vessels Cord Entanglement: Around neck x 1, loose Nuchal Cord Compression: Without compression Infant A Gender: Female (1 minute): 7 (5 minute): 9 Delayed Cord Clamping: Yes Complications Risks of Surgery Discussed w/Patient: Bleeding, Anesthesia Risks, Infection, Permanency, Failure Rate of 1 to 2%, Injury to surrounding structure(s) including bowel and bladder and Availability of other non-permanent control options Complications: none
[2021-07-15] MEDS: Oxytocin 30 units/NS 500 ml 30 UNITS/500 ML IV.SOLN 167 UNITS IV (13:10)
[2021-07-15] MEDS: Ketorolac 30 MG/ML Syringe IV (13:26)
[2021-07-15 13:31] LABS: Pathology Specimen OB SEE PATHOLOGY REPORT
[2021-07-15 13:36] LABS: Bedside Glucose 83 mg/dL (70-110)
[2021-07-15] MEDS: Ibuprofen 600 MG Tablet PO (20:06)
[2021-07-16] VITALS (8 sets, daily range): BP systolic 100–117; BP diastolic 53–70; PULSE 62–92; RESP 16–17; TEMP 35.7–36.8; O2SAT 96–100
[2021-07-16] MEDS: Enoxaparin 40 MG/0.4 ML Syringe SC (00:17)
--- NOTE | 2021-07-16 00:22 | NURSING ---
pt states that after attempting to void she feels like she didn't empty her bladder completely. encouraged pt to try to void again and encouraged PO hydration.
[2021-07-16] MEDS: Ibuprofen 600 MG Tablet PO ×2 (01:52→09:11)
[2021-07-16 05:15] LABS: Hematocrit 32.4 % (37-47); Hemoglobin 10.5 g/dL (12.0-15.0); Mean Corp Hgb Conc 32.4 g/dL (32-36); Mean Corpuscular Volume 80.2 fL (81-99); Mean Platelet Vol. 10.3 fl (6.2-12.0); Platelet Count 306 K/mm3 (150-450); RBC Distribution Width CV 15.5 % (11.6-14.6); Red Blood Count 4.04 M/mm3 (4.2-5.4); White Blood Count 14.9 K/mm3 (4.4-11.0)
[2021-07-16] MEDS: Acetaminophen 500 MG Tablet 1000 MG PO ×2 (05:28→12:10)
--- NOTE | 2021-07-16 08:49 | PN.OBGYN_ITS ---
Subjective Subjective Patient seen at bedside. infant without difficulty. Ambulating and voiding. Denies headache, vision changes, CP, SOB or dizziness. Lochia normal. Requests discharge home later today. Objective Data Objective Data Vital Signs: Vital Signs Temp Pulse Resp BP Pulse Ox 97.4 F L 92 17 110/62 98 07/16/21 04:51 07/16/21 06:25 07/16/21 06:25 07/16/21 04:51 07/16/21 06:25 Oxygen Delivery Method Room Air Weight: 180 lb Body Mass Index (BMI) 35.2 Intake & Output: Intake and Output for Last 24 Hours 07/14/21 07/15/21 07/16/21 23:59 23:59 23:59 Intake Total 1721.5 / 1721.5 Output Total 650 / 650 700 / 700 Balance 1071.5 / 1071.5 -700 / -700 Lab / Micro Data Result Diagrams: 07/16/21 05:05 Labs: Laboratory Results - last 24 hr 07/15/21 10:00: Urine Opiates Screen Cancelled, Urine Methadone Screen Cancelled, Ur Barbiturates Screen Cancelled, Ur Phencyclidine Scrn Cancelled, Ur Amphetamines Screen Cancelled, U Methamphetamin-MDMA Cancelled, U Benzodiazepines Scrn Cancelled, Urine Cocaine Screen Cancelled, U Cannabinoids S creen Cancelled, Ur Drug Screen Comment Cancelled 07/15/21 10:05: WBC 14.4 H, RBC 4.59, Hgb 12.0, Hct 36.5 L, MCV 79.5 L, MCH 26.1 L, MCHC 32.9, RDW Std Deviation 44.4 H, RDW Coeff of Anjana 15.6 H, Plt Count 325, MPV 11.1, Immature Gran % (Auto) 0.500, Neut % (Auto) 75.1 H, Lymph % (Auto) 19.5, Douglas % (Auto) 3.8, Eos % (Auto) 0.8, Baso % (Auto) 0.3, Absolute Neuts (auto) 10.8 H, Absolute Lymphs (auto) 2.80, Nucleated RBC % 0 07/15/21 10:05: Blood Type A POSITIVE, Antibody Screen NEGATIVE 07/15/21 11:26: POC Glucose 99 07/15/21 11:30: Urine Opiates Screen NEGATIVE, Urine Methadone Screen NEGATIVE, Ur Barbiturates Screen NEGATIVE, Ur Phencyclidine Scrn NEGATIVE, Ur Amphetamines Screen NEGATIVE, U Methamphetamin-MDMA NEGATIVE, U Benzodiazepines Scrn NEGATIVE, Urine Cocaine Screen NEGATIVE, U Cannabinoids Screen NEGATIVE, Ur Drug Screen Comment 07/15/21 13:28: POC Glucose 83 07/16/21 05:05: WBC 14.9 H, RBC 4.04 L, Hgb 10.5 L, Hct 32.4 L, MCV 80.2 L, MCH 26.0 L, MCHC 32.4, RDW Std Deviation 45.0 H, RDW Coeff of Najana 15.5 H, Plt Count 306, MPV 10.3 ROS Eyes Eyes: Denies blurry vision, change in vision or spots in vision ENT HEENT: Denies dizziness or headache(s) Cardiovascular Cardiovascular: Denies abdominal pain, chest pain or dyspnea Respiratory/Chest Respiratory/Chest: Denies cough, dyspnea, shortness of breath at rest or shortness of breath with exertion Gastrointestinal Gastrointestinal: Denies abdominal pain, diarrhea or vomiting Genitourinary Genitourinary: Denies change in urinary stream, difficulty urinating or dysuria Musculoskeletal Musculoskeletal: Reports none Integumentary Integumentary: Denies rash Neurologic Neurologic: Denies dizziness, headache(s), memory loss or weakness Physical Exam Narrative Dressing is dry and intact Const alert and no apparent distress General Appearance: cooperative and comfortable Exam Limitations: no limitations HEENT normocephalic Eyes General Eye: normal appearance of both eyes Neck full ROM General: normal visual inspection Chest Chest: symmetrical chest wall rise Resp normal respiratory effort and normal air movement Effort and Inspection: symmetric chest movement Auscultation: clear to auscultation bilaterally Cardio regular rate and regular rhythm GI normal to inspection, nondistended, normoactive bowel sounds Back/Spine normal ROM Extremity full ROM and no calf tenderness General Extremity: normal exam except as noted Skin no rashes or lesions noted Neuro CN's II-XII intact bilaterally Psych mental status grossly normal Assessment & Plan (1) Mother currently breast-feeding: (2) Status post repeat low transverse section: (3) S/P tubal ligation: PLAN: POD #2 Repeat C/S with sterilization Routine care Pain controlled support Discharge home with follow up in office
--- NOTE | 2021-07-16 08:54 | PCM.DC.SUM ---
Providers Date of Admission: 07/15/21 Primary Care Physician: Dr. Azar Smith MD Reason For Visit: REPEAT C SECTION Diagnosis Discharge Diagnosis (1) Mother currently breast-feeding: Status: Acute Code(s): Z39.1 - Encounter for care and examination of lactating mother (2) Status post repeat low transverse section: Status: Acute Code(s): Z98.891 - History of uterine scar from previous surgery (3) S/P tubal ligation: Status: Acute Code(s): Z98.51 - Tubal ligation status Medications at Discharge Home Medications famotidine 20 mg PO BID 06/02/21 albuterol sulfate 90 mcg INHALATION PRN PRN 07/15/21 diphenhydramine HCl [Benadryl] 50 mg PO PRN PRN 07/15/21 ondansetron HCl [Zofran] 07/15/21 promethazine 12.5 mg PO PRN PRN 07/15/21 Hospital Course Operations section Summary of Care Provided Hospital Course: Patient here for scheduled repeat section with bilateral tubal ligation. Hospital course was uneventful. Physical Exam Narrative Dressing is dry and intact Const alert and no apparent distress General Appearance: cooperative and comfortable Exam Limitations: no limitations HEENT normocephalic Eyes General Eye: normal appearance of both eyes Neck full ROM General: normal visual inspection Chest Chest: symmetrical chest wall rise Resp normal respiratory effort and normal air movement Effort and Inspection: symmetric chest movement Auscultation: clear to auscultation bilaterally Cardio regular rate and regular rhythm GI normal to inspection, nondistended, normoactive bowel sounds Back/Spine normal ROM Extremity full ROM and no calf tenderness General Extremity: normal exam except as noted Skin no rashes or lesions noted Neuro CN's II-XII intact bilaterally Psych mental status grossly normal Weight / BMI Weight Weight: 180 lb Body Mass Index (BMI) 35.2 ABG / Lab / Microbiology Data Result Diagrams: 07/16/21 05:05 Laboratory: Laboratory Results - last 24 hr 07/15/21 10:00: Urine Opiates Screen Cancelled, Urine Methadone Screen Cancelled, Ur Barbiturates Screen Cancelled, Ur Phencyclidine Scrn Cancelled, Ur Amphetamines Screen Cancelled, U Methamphetamin-MDMA Cancelled, U Benzodiazepines Scrn Cancelled, Urine Cocaine Screen Cancelled, U Cannabinoids Screen Cancelled, Ur Drug Screen Comment Cancelled 07/15/21 10:05: WBC 14.4 H, RBC 4.59, Hgb 12.0, Hct 36.5 L, MCV 79.5 L, MCH 26.1 L, MCHC 32.9, RDW Std Deviation 44.4 H, RDW Coeff of Anjana 15.6 H, Plt Count 325, MPV 11.1, Immature Gran % (Auto) 0.500, Neut % (Auto) 75.1 H, Lymph % (Auto) 19.5, [place] % (Auto) 3.8, Eos % (Auto) 0.8, Baso % (Auto) 0.3, Absolute Neuts (auto) 10.8 H, Absolute Lymphs (auto) 2.80, Nucleated RBC % 0 07/15/21 10:05: Blood Type A POSITIVE, Antibody Screen NEGATIVE 07/15/21 11:26: POC Glucose 99 07/15/21 11:30: Urine Opiates Screen NEGATIVE, Urine Methadone Screen NEGATIVE, Ur Barbiturates Screen NEGATIVE, Ur Phencyclidine Scrn NEGATIVE, Ur Amphetamines Screen NEGATIVE, U Methamphetamin-MDMA NEGATIVE, U Benzodiazepines Scrn NEGATIVE, Urine Cocaine Screen NEGATIVE, U Cannabinoids Screen NEGATIVE, Ur Drug Screen Comment 07/15/21 13:28: POC Glucose 83 07/16/21 05:05: WBC 14.9 H, RBC 4.04 L, Hgb 10.5 L, Hct 32.4 L, MCV 80.2 L, MCH 26.0 L, MCHC 32.4, RDW Std Deviation 45.0 H, RDW Coeff of Anjana 15.5 H, Plt Count 306, MPV 10.3 D/C Instructions Discharge Diet: No restrictions May resume sexual activity in: 2 weeks Weight Bearing Status: Weight bearing as tolerated Lifting Restrictions: 20 lbs Call your doctor if your incision/area has: Continuous Slow Oozing, Sudden Increased Bleeding, Increased Pain/ Swelling, Increased Redness, Foul Smelling Discharge and Swelling at the incision site Call your doctor if you observe: Fever of 101 or Higher, Inability to urinate, Inability to have a bowel movement, Using more than 1 pad per hour and Uncontrolled pain Remove Dressing in: 5 days Cleanse incision/area with: Soap & Water and Keep Dressing Clean & Dry Additional Dressing/Incision Instructions: You have skin glue over your incision sites, do not pick off. You may shower and let the soap and water run over the incision sites and dab dry. Please Follow Up With: Robyn Mccartney MD When: 1-2 weeks post OP if you need an appointment please call [phone] Meaningful Use Info Meaningful Use Diagnoses (Choose all that apply): None applicable Discharge Plan Admission Admit Date/Time: 07/15/21 09:35 Primary Reason for Your Visit: Repeat section with bilateral tubal ligation Attending Provider: Robyn Mccartney Primary Care Provider: Azar Smith Discharge Orders/Prescriptions Prescriptions: No Action diphenhydramine HCl [Benadryl] 50 mg Capsule 50 mg PO PRN PRN (Reason: Nausea) RF: 0 promethazine 12.5 mg tablet 12.5 mg PO PRN PRN (Reason: Nausea) RF: 0 albuterol sulfate 90 mcg/actuation HFA aerosol inhaler 90 mcg INHALATION PRN PRN (Reason: asthma) RF: 0 ondansetron HCl [Zofran] 4 mg Tablet RF: 0 famotidine 20 MG tablet 20 mg PO BID RF: 0 Referrals / Follow Up: Azar Smith MD [Primary Care Provider] - Disposition Disposition (needs filled in before D/C Order can be placed): Home, Self Care
[2021-07-16] MEDS: Senna/Docusate Sodium 1 Tablet PO (09:12)
== END 2021-07-16 13:45 | disposition home or self-care (01) | DRG 539 ==
PROVIDERS: Admitting Provider Obstetrics & Gynecology; PCP Family Medicine; Visit Provider Obstetrics & Gynecology
PROC: 10D00Z1 Extraction of Products of Conception, Low, Open Approach (ICD-10-PCS; CPT 59514; principal; 2021-07-15 11:45)
DX: O82 Encounter for cesarean delivery without indication (principal); O99.52 Diseases of the respiratory system complicating childbirth; O69.81X0 Labor and delivery complicated by cord around neck, without compression, not applicable or unspecified; O99.334 Smoking (tobacco) complicating childbirth; F17.200 Nicotine dependence, unspecified, uncomplicated; J45.909 Unspecified asthma, uncomplicated; Z3A.39 39 weeks gestation of pregnancy; Z37.0 Single live birth
CPT/HCPCS: 80307; 82962; 85025; 85027; 86850; 86900; 86901; 88302; 99218; J7120; G0378; J2405

== ENCOUNTER 2022-02-21 12:39 | Emergency (ER) | payer MEDICAID, SELFPAY ==
[2022-02-21 12:41] VITALS: BP 137/100; PULSE 98; RESP 17; TEMP 36.7; O2SAT 100; BMI 29.7
--- NOTE | 2022-02-21 12:50 | CT_ITS ---
STUDY: CT BRAIN WITHOUT CONTRAST REASON FOR EXAM: Female, 31 years old. Headache RADIATION DOSAGE (If Supplied By Facility): CTDIvol = ( 44.99 ) mGy, DLP = ( 745.49 ) mGycm TECHNIQUE: Transaxial CT imaging of the brain was performed without administration of intravenous contrast material. Individualized dose optimization techniques were used for this CT. COMPARISON: 09/22/2020 FINDINGS: Normal soft tissue structures. Normal calvarium. Normal size ventricles and extra-axial spaces for the patient''s age. Normal white matter tracts of the cerebral hemispheres. Normal basal ganglia and thalami. Normal brainstem. Normal cerebellum. There is no intracranial hemorrhage. There are no findings of an acute ischemic infarction. Normal visualized paranasal sinuses. CT/Brain/Head without Contrast IMPRESSION: No acute intracranial process. Electronically Signed: Oliva Peng MD at 13:40 EDT ,
--- NOTE | 2022-02-21 12:50 | CT_ITS ---
STUDY: CT CERVICAL SPINE WITHOUT CONTRAST REASON FOR EXAM: Female, 31 years old. Neck pain RADIATION DOSAGE (If Supplied By Facility): CTDIvol = ( 24.76 ) mGy, DLP = ( 465.21 ) mGycm TECHNIQUE: High resolution transaxial imaging was performed without contrast material. Sagittal and coronal images were reconstructed. Individualized dose optimization techniques were used for this CT. COMPARISON: CT of the neck dated 11/09/2013 FINDINGS: Normal craniovertebral junction. Normal anterior atlantoaxial articulation. Normal odontoid process. There is grossly stable loss of the normal cervical lordosis. Normal vertebral bodies and posterior osseous elements. C2-3: Normal endplates. Normal disc height and morphology. Normal central canal and intervertebral neuroforamina. C3-4: Normal endplates. Normal disc height and morphology. Normal central canal and intervertebral neuroforamina. C4-5: Normal endplates. Normal disc height and morphology. Normal central canal and intervertebral neuroforamina. C5-6: Normal endplates. Normal disc height and morphology. Normal central canal and intervertebral neuroforamina. C6-7: Normal endplates. Normal disc height and morphology. Normal central canal and intervertebral neuroforamina. C7-T1: Normal endplates. Normal disc height and morphology. Normal central canal and intervertebral neuroforamina. Normal visualized soft tissue structures. CT/Spine Cervical without Contras IMPRESSION: Within normal limits unenhanced CT examination of the cervical spine. Electronically Signed: Oliva Peng MD at 14:25 EDT ,
--- NOTE | 2022-02-21 12:52 | EDS_ITS ---
HPI History of Present Illness Chief Complaint: Headache Narrative Narrative: 31-year-old female with history of migraine presenting with headache. She states is left-sided. She does not have an aura. She states she woke up with a headache 2 days ago. She was seen in urgent care because she was having pain and they diagnosed her with swimmer's ear yesterday. She is been doing eardrops but notes that the pain is not improving and is now radiating into her left side of her neck. She not had a fever. No visual complaints but does note that she has developed a subconjunctival hemorrhage. No nausea or vomiting. [facility] Medical History Acid reflux Anemia complicating Asthma Breast disorder Current smoker Femur fracture Mother currently breast-feeding Post depression depression Thymoma Thyroid disease Home Medications famotidine 20 mg tablet 20 mg PO BID Check with primary doctor 06/02/21 [History Last Taken 07/14/21 15:00] albuterol sulfate 90 mcg/actuation aerosol inhaler 90 mcg inhalation PRN PRN asthma 07/15/21 [History Last Taken 07/15/21 07:00 90 mcg] diphenhydramine HCl 50 mg capsule 50 mg PO PRN PRN Nausea 07/15/21 [History Last Taken 07/14/21 22:00 100 mg] ondansetron HCl 4 mg tablet (Zofran) Nausea 07/15/21 [History Last Taken Unknow n] promethazine 12.5 mg tablet 12.5 mg PO PRN PRN Nausea 07/15/21 [History Last Taken Unknown] buspirone 10 mg tablet 10 mg PO 09/09/21 [History Last Taken Unknown] hydrocodone-acetaminophen 5-325mg 5mg-325mg 1 tab PO Q6H PRN pain 3 days #10 tabs 02/21/22 [Rx Last Taken Unknown] Allergy/AdvReac Type Severity Reaction Status Date / Time gentamicin [Gentamicin] Allergy Unknown Other Verified 02/21/22 12:40 cat dander Allergy Other Verified 02/21/22 12:40 grass pollen Allergy Hives Verified 02/21/22 12:40 Family History Aunt Abuse, drug or alcohol maternal Thyroid disorder maternal Mother Abuse, drug or alcohol PTSD (post-traumatic stress disorder) Anxiety and depression Myocardial infarction Melanoma Grandfather Abuse, drug or alcohol maternal Brother Melanoma Grandmother Heart disease maternal Surgical History H/O dilation and curettage History of colonoscopy History of esophagogastroduodenoscopy History of laparoscopic cholecystectomy History of thoracotomy History of tonsillectomy and adenoidectomy Hx of section S/P tubal ligation Status post repeat low transverse section Social History Smoking Status: Current every day smoker tobacco type: cigarettes Electronic Cigarette Use: not used second hand exposure: Yes ROS ROS ED Constitutional Constitutional ED: Denies chills or fever(s) Eyes Eyes: Reports other Details: Left eye subconjunctival hemorrhage ; Denies change in vision ENT ENT ED: Reports ear pain left Cardiovascular Cardiovascular: Denies chest pain or palpitations Respiratory/Chest Respiratory/Chest: Denies cough or dyspnea Gastrointestinal Gastrointestinal: Denies abdominal pain or constipation Genitourinary Genitourinary ED: Denies dysuria Musculoskeletal Musculoskeletal: Reports other Details: Left-sided neck ; Denies arthralgias or back pain Integumentary Denies abscess or Abrasions Neurologic Neurologic: Reports headache(s) Psychiatric Psychiatric: Denies anxiety or depression EXAM Physical Exam Const Vital Signs: 02/21/22 12:41 02/21/22 15:38 Temperature 98.0 F Temperature Source Temporal Pulse Rate 98 70 Respiratory Rate 17 16 Blood Pressure 137/100 H 121/78 H Blood Pressure Mean 112 Pulse Ox 100 99 Oxygen Delivery Method Room Air Positive well nourished General Appearance ED: NAD; Negative for pallor HEENT Reports normocephalic and TM's clear HEENT Narrative: Pain with movement of the left tragus. No rashes noted. Left-sided posterior auricular lymphadenopathy. No drainage noted. Mild erythema. No tenderness over the temples bilaterally. atraumatic Tympanic Membrane ED: Yes TM's clear Eyes PERRL and EOMs intact bilaterally Resp normal respiratory effort and clear to auscultation bilaterally Cardio regular rate and regular rhythm Back/Spine Cervical Spine: Negative for cervical spine tenderness Thoracic Spine / Upper Back: Negative for thoracic spinal tenderness Extremity normal to inspection Neuro oriented x3 and CN's II-XII intact bilaterally Neuro Narrative: No focal neurologic deficits or lateralizing signs or symptoms Sensorium / Orientation: awake and alert Psych mental status grossly normal Skin General Skin Exam: Negative for jaundice or pallor MDM MDM MDM Narrative Medical decision making narrative: Patient presenting with headache. She has a history of migraine but this is something different she states. She has no pain over the temples. She has no meningeal signs. She does have pain in the left side of the neck but also states it hurts with motion. She does have some posterior ocular lymphad enopathy. Her TM looks okay and I do not see any erythema or drainage. She does have pain with movement of the tragus however external auditory canal does not look very erythematous. Patient was given Reglan and Benadryl to see if that would help her headache and she states that it did not touch it. CT of the brain and cervical spine are normal. Since she has been started on medicine for otitis externa its possible this could have improved enough that it does not look very red although she complains of pain. She was given [place] here. I will give her a short supply of [place] for home. If she is not improving she is to return. Impression: 1. Otitis externa 2. Headache 3. Lymphadenopathy Lab Data Attestation: I reviewed the patient's lab results. Radiography Diagnostic Testing: Clinical Impression(s) from Imaging Studies Brain CT 02/21/22 12:50 IMPRESSION: No acute intracranial process. Electronically Signed: Oliva Peng MD at 13:40 EDT , Cervical Spine CT 02/21/22 12:50 IMPRESSION: Within normal limits unenhanced CT examination of the cervical spine. Electronically Signed: Oliva Peng MD at 14:25 EDT , Discharge Plan Triage Chief Complaint: Headache ED Provider: Ariel Santo Dx/Rx/DC Orders Instructions: ED Adenitis Cervical No Abx Tx, ED Headache Unspecified Prescriptions: New hydrocodone-acetaminophen 5-325 mg tablet 1 tab PO Q6H PRN (Reason: pain) 3 Days Qty: 10 0RF No Action buspirone 10 mg tablet 10 mg PO diphenhydramine HCl [Benadryl] 50 mg Capsule 50 mg PO PRN PRN (Reason: Nausea) promethazine 12.5 mg tablet 12.5 mg PO PRN PRN (Reason: Nausea) albuterol sulfate 90 mcg/actuation HFA aerosol inhaler 90 mcg INHALATION PRN PRN (Reason: asthma) ondansetron HCl [Zofran] 4 mg Tablet famotidine 20 MG tablet 20 mg PO BID Primary Care Provider: Azar Smith Referrals: Azar Smith MD [Primary Care Provider] - Disposition Disposition: Home, Self Care Discharge Date/Time: 02/21/22 15:53
[2022-02-21] MEDS: Metoclopramide 10 MG/2 ML Vial IV (13:08)
[2022-02-21] MEDS: DiphenhydrAMINE 50 MG/ML Syringe 25 MG IV (13:08)
[2022-02-21 15:38] VITALS: BP 121/78; PULSE 70; RESP 16; O2SAT 99
[2022-02-21] MEDS: HYDROcodone Bitartrate/Apap 5/325 Tablet PO (15:40)
== END 2022-02-21 15:53 | disposition home or self-care (01) ==
PROVIDERS: Emergency Provider Student in an Organized Health Care Education/Training Program; PCP Family Medicine; Visit Provider Student in an Organized Health Care Education/Training Program
DX: H60.90 Unspecified otitis externa, unspecified ear (principal); R51.9 Headache, unspecified; R59.9 Enlarged lymph nodes, unspecified; F17.210 Nicotine dependence, cigarettes, uncomplicated
CPT/HCPCS: 70450; 72125; 96374; 96375; 99283; J7030; A4216

== ENCOUNTER 2022-02-24 20:13 | Emergency (ER) | payer MEDICAID, SELFPAY ==
[2022-02-24 20:14] VITALS: BP 124/97; PULSE 87; RESP 15; TEMP 36.6; O2SAT 100; BMI 28.3
[2022-02-24 21:20] LABS: Absolute Lymphocyte Count 1.89 X10^3/uL (0.83-4.51); Absolute Neutrophil Count 4.7 X10^3/uL (2.0-7.7); Basophil# 0.05 X10^3/uL; Basophil% 0.7 % (0-1); Eosinophil# 0.04 X10^3/uL; Eosinophils% 0.6 % (0-5); Hematocrit 43.3 % (37-47); Hemoglobin 14.1 g/dL (12.0-15.0); Lymphocyte # 1.89 X10^3/ul (0.83-4.51); Lymphocyte % 26.9 % (19-41); Mean Corp Hgb Conc 32.6 g/dL (32-36); Mean Corpuscular Hgb 25.9 pg (27.0-32.0); Mean Corpuscular Volume 79.4 fL (81-99); Mean Platelet Vol. 9.8 fl (6.2-12.0); Monocyte# 0.34 X10^3/uL; Monocyte% 4.8 % (0-10); NRBC Flagged by Analyzer 0 % (0-5); Neutrophil # 4.69 X10^3/uL (2.7-7.7); Neutrophil % 66.7 % (47-70); Platelet Count 330 K/mm3 (150-450); RBC Distribution Width CV 16.9 % (11.6-14.6); RBC Distribution Width SD 47.6 fl (35.1-43.9); Red Blood Count 5.45 M/mm3 (4.2-5.4)
[2022-02-24 21:35] LABS: Anion Gap 6 (5-15); BUN 10 mg/dL (7-18); BUN/Creat Ratio 17.5 RATIO (10-20); Calcium,Total 9.7 mg/dL (8.5-10.1); Chloride 103 mmol/L (98-107); Creatinine, Serum 0.57 mg/dL (0.55-1.02); EST Glomerular Filtration Rate 131 mL/min (>60); Est Glom Filt Rate - Afr Amer 158 mL/min (>60); Glucose 89 mg/dL (74-106); Sodium Level 138 mmol/L (136-145)
[2022-02-24 21:36] LABS: Internal QC Validated? YES +Cl - CLEAR BKGD; Pregnancy, Serum, hCG Quali. NEGATIVE Negative
[2022-02-24] MEDS: Ondansetron 4 MG/2 ML Vial IV (21:46)
[2022-02-24 21:54] LABS: Mucous, Urine 0 SEEN /hpf (<or=2+)
[2022-02-24 21:57] LABS: Color, Urine Yellow (Yellow); Glucose, Dipstick Normal (Normal); Ketone-Dipstick Negative (Negative); Leukocyte Esterase-Dipstick Negative /ul (Negative); Nitrite-Dipstick Negative (Negative); Occult Blood-Urine 250 /ul (Negative); Protein-Dipstick Negative (Negative); Specific Gravity, Urine 1.015 (1.002-1.030); Urine Bilirubin Dipstick Negative (Negative); Urine Clarity Clear (Clear); Urine Urobilinogen Normal (Normal); Urine pH 6.5 (5.0 - 8.0)
--- NOTE | 2022-02-24 22:08 | EDS_ITS ---
HPI History of Present Illness Chief Complaint: Nausea/Vomiting Detail of Chief Complaint: Nausea and vomiting was standing and vertigo Informant: patient Onset/Context/Timing Onset: Hours Context: Sudden Onset Timing: Intermittent Quality: Spinning sensation Location: With standing Current Severity: Gone Maximum Severity: Severe Worsened by: Change in position Relieved by: Remaining still Associated Symptoms Associated Symptoms: Nausea and vomiting and diaphoresis Narrative Narrative: Patient is a 31-year-old woman who presents because of abrupt onset of vertigo that is associated with nausea and vomiting. She becomes diaphoretic. She states she cannot stand. She had 1 episode where she fell. Denies head trauma. Denies loss of conscious. She denies double vision, blurred vision loss of vision. Denies ringing or ears or decreased hearing. Denies drainage from ears. Denies epistaxis. Denies dental trauma. She denies neck pain. She denies paresthesia, anesthesia or motor weakness. She denies shortness of breath. Denies chest discomfort. She denies black or maroon-colored stool. She denies urologic symptoms. She denies leg pain, swelling or discoloration. Prior similar symptoms: No Recent Illness/Hospitalization: No [facility] Medical History Acid reflux Anemia complicating Asthma Breast disorder Current smoker Femur fracture Mother currently breast-feeding Post depression depression Thymoma Thyroid disease Home Medications famotidine 20 mg tablet 20 mg PO BID Check with primary doctor 06/02/21 [History Last Taken 07/14/21 15:00] albuterol sulfate 90 mcg/actuation aerosol inhaler 90 mcg inhalation PRN PRN asthma 07/15/21 [History Last Taken 07/15/21 07:00 90 mcg] diphenhydramine HCl 50 mg capsule 50 mg PO PRN PRN Nausea 07/15/21 [History Last Taken 07/14/21 22:00 100 mg] ondansetron HCl 4 mg tablet (Zofran) Nausea 07/15/21 [History Last Taken Unknown] promethazine 12.5 mg tablet 12.5 mg PO PRN PRN Nausea 07/15/21 [History Last Taken Unknown] buspirone 10 mg tablet 10 mg PO 09/09/21 [History Last Taken Unknown] hydrocodone-acetaminophen 5-325mg 5mg-325mg 1 tab PO Q6H PRN pain 3 days #10 tabs 02/21/22 [Rx Last Taken Unknown] Allergy/AdvReac Type Severity Reaction Status Date / Time gentamicin [Gentamicin] Allergy Unknown Other Verified 02/24/22 20:17 cat dander Allergy Other Verified 02/24/22 20:17 grass pollen Allergy Hives Verified 02/24/22 20:17 Family History Aunt Abuse, drug or alcohol maternal Thyroid disorder maternal Mother Abuse, drug or alcohol PTSD (post-traumatic stress disorder) Anxiety and depression Myocardial infarction Melanoma Grandfather Abuse, drug or alcohol maternal Brother Melanoma Grandmother Heart disease maternal Surgical History H/O dilation and curettage History of colonoscopy History of esophagogastroduodenoscopy History of laparoscopic cholecystectomy History of thoracotomy History of tonsillectomy and adenoidectomy Hx of section S/P tubal ligation Status post repeat low transverse section Social History (Updated 02/24/22 @ 22:[address] Sulaiman Chan MD) Smoking Status: Current every day smoker tobacco type: cigarettes Electronic Cigarette Use: not used second hand exposure: Yes substance use type: marijuana ROS ROS ED Constitutional Constitutional ED: Reports sweats; Denies chills, fever(s), subjective or weight loss Eyes Eyes: Denies blurry vision, change in vision or diplopia ENT ENT ED: Denies ear pain, rhinorrhea or sore throat Cardiovascular Cardiovascular: Denies chest pain, palpitations or racing heartbeat Respiratory/Chest Respiratory/Chest: Denies cough, dyspnea or dyspnea on exertion Gastrointestinal Gastrointestinal: Reports nausea and vomiting; Denies abdominal pain, constipation, diarrhea or melena Genitourinary Genitourinary ED: Denies dysuria, hematuria or urinary frequency Musculoskeletal Musculoskeletal: Denies arthralgias, back pain, myalgias or neck pain Integumentary Denies abscess or rash Neurologic Neurologic: Denies headache(s), paresthesias or weakness Psychiatric Psychiatric: Denies anxiety or depression Endocrine Endocrinology: Denies cold intolerance or heat intolerance Hematologic/Lymphatic Hematologic/Lymphatic: Denies anemia, easy bleeding, easy bruising or lymphadenopathy EXAM Physical Exam Const Vital Signs: 02/24/22 20:14 02/24/22 22:20 Temperature 97.9 F Temperature Source Temporal Pulse Rate 87 Respiratory Rate 15 17 Blood Pressure 124/97 H Blood Pressure Mean 106 Pulse Ox 100 Oxygen Delivery Method Room Air Room Air Positive well nourished and well developed; Negative for unkempt General Appearance ED: well developed and NAD; Negative for unkempt, cyanotic, diaphoretic or pallor HEENT Reports moist mucous membranes HEENT Narrative: Head is atraumatic normocephalic. Ears normal. TMs normal. Nares patent. Uvula midline. There is no erythema or exudate. Eyes PERRL and EOMs intact bilaterally Eyes Narrative: There is no nystagmus. There is no APD. Funduscopic exam reveals normal cup-to-disc ratio. There is no papilledema. Neck no lymphadenopathy, supple and no JVD Resp normal respiratory effort and clear to auscultation bilaterally Cardio regular rate, regular rhythm, S1 normal heart sound, S2 normal heart sound and no murmurs GI normal to inspection, nondistended, normoactive bowel sounds, non-tender, non- distended and hepatosplenomegaly Auscultation: hypoactive bowel sounds Back/Spine no CVA tenderness Cervical Spine: Negative for cervical spine tenderness Thoracic Spine / Upper Back: Negative for thoracic spinal tenderness Lumbar Spine / Lower Back: Negative for lumbar spinal tenderness Extremity normal to inspection General Extremety ED: Negative for edema or tenderness General Extremity: Negative for edema Neuro oriented x3, CN's II-XII intact bilaterally and no sensory deficits noted Neuro Narrative: There is no dysmetria. The eye askew test was negative. The hint test was negative. Fritz-Hallpike maneuver was positive significantly with head turn to the left compared to the right. Sensorium / Orientation: alert Motor Exam: strength 5/5 throughout Psych Appearance: Negative for unkempt Skin no rashes or lesions noted, no wounds and skin turgor normal General Skin Exam: Negative for jaundice or pallor MDM MDM MDM Narrative Medical decision making narrative: Patient's history and physical is consistent with benign positional vertigo. Lab work was ordered per nurse protocol. Her work-up laboratory lomax is negative. She was given Zofran for her persistent nausea. Lab Data Attestation: I reviewed the patient's lab results. Labs: Laboratory Results - last 24 hr 02/24/22 02/24/22 02/24/22 21:14 21:14 21:14 WBC 7.0 RBC 5.45 H Hgb 14.1 Hct 43.3 MCV 79.4 L MCH 25.9 L MCHC 32.6 RDW Std Deviation 47.6 H RDW Coeff of Anjana 16.9 H Plt Count 330 MPV 9.8 Immature Gran % (Auto) 0.300 Neut % (Auto) 66.7 Lymph % (Auto) 26.9 [place] % (Auto) 4.8 Eos % (Auto) 0.6 Baso % (Auto) 0.7 Absolute Neuts (auto) 4.7 Absolute Lymphs (auto) 1.89 Nucleated RBC % 0 Sodium 138 Potassium 4.0 Chloride 103 Carbon Dioxide 29.0 Anion Gap 6 BUN 10 Creatinine 0.57 Estim Creat Clear Calc 113.10 Est GFR (MDRD) Af Amer 158 Est GFR (MDRD) Non-Af 131 BUN/Creatinine Ratio 17.5 Glucose 89 Calcium 9.7 Serum , Qual NEGATIVE Urine Color Urine Clarity Urine pH Ur Specific [place] Urine Protein Urine Glucose (UA) Urine Ketones Urine Occult Blood Urine Nitrite Urine Bilirubin Urine Urobilinogen Ur Leukocyte Esterase Urine RBC Urine WBC Ur Squamous Epith Cells Urine Bacteria Urine Mucus 02/24/22 21:42 WBC RBC Hgb Hct MCV MCH MCHC RDW Std Deviation RDW Coeff of Anjana Plt Count MPV Immature Gran % (Auto) Neut % (Auto) Lymph % (Auto) [place] % (Auto) Eos % (Auto) Baso % (Auto) Absolute Neuts (auto) Absolute Lymphs (auto) Nucleated RBC % Sodium Potassium Chloride Carbon Dioxide Anion Gap BUN Creatinine Estim Creat Clear Calc Est GFR (MDRD) Af Amer Est GFR (MDRD) Non-Af BUN/Creatinine Ratio Glucose Calcium Serum , Qual Urine Color Yellow Urine Clarity Clear Urine pH 6.5 Ur Specific [place] 1.015 Urine Protein Negative Urine Glucose (UA) Normal Urine Ketones Negative Urine Occult Blood 250 H Urine Nitrite Negative Urine Bilirubin Negative Urine Urobilinogen Normal Ur Leukocyte Esterase Negative Urine RBC 0-5 SEEN Urine WBC 0-5 SEEN Ur Squamous Epith Cells 5-10 SEEN Urine Bacteria 1+ Urine Mucus 0 SEEN Treatment and Re-Evaluation Narrative: Jaun maneuver was performed. Patient only had symptoms when head was turned to the left. She tolerated maneuver without nausea or vomiting. Patient did have nystagmus that did fatigue. Discharge Plan Triage Chief Complaint: Nausea/Vomiting ED Provider: Sulaiman Chan Dx/Rx/DC Orders Clinical Impression: Benign paroxysmal positional vertigo of left ear Instructions: ED BPV Vertigo Prescriptions: No Action buspirone 10 mg tablet 10 mg PO diphenhydramine HCl [Benadryl] 50 mg Capsule 50 mg PO PRN PRN (Reason: Nausea) promethazine 12.5 mg tablet 12.5 mg PO PRN PRN (Reason: Nausea) albuterol sulfate 90 mcg/actuation HFA aerosol inhaler 90 mcg INHALATION PRN PRN (Reason: asthma) ondansetron HCl [Zofran] 4 mg Tablet famotidine 20 MG tablet 20 mg PO BID hydrocodone-acetaminophen 5-325 mg tablet 1 tab PO Q6H PRN (Reason: pain) 3 Days Qty: 10 0RF Primary Care Provider: Azar Smith Referrals: Azar Smith MD [Primary Care Provider] - As Needed Disposition Disposition: Home, Self Care
[2022-02-24 22:16] LABS: Bacteria 1+ /hpf (None Seen); Red Blood Cells-Urine 0-5 SEEN /hpf (0-5); Squamous Epithelial Cells - UA 5-10 SEEN /hpf (5-10); White Blood Cells 0-5 SEEN /hpf (0-5)
[2022-02-24 22:20] VITALS: RESP 17
[2022-02-25 00:08] VITALS: BP 117/74; PULSE 69; RESP 17; O2SAT 98
== END 2022-02-25 00:09 | disposition home or self-care (01) ==
PROVIDERS: Emergency Provider Emergency Medicine; PCP Family Medicine; Visit Provider Emergency Medicine
DX: H81.12 Benign paroxysmal vertigo, left ear (principal); F17.210 Nicotine dependence, cigarettes, uncomplicated; F12.90 Cannabis use, unspecified, uncomplicated
CPT/HCPCS: 80048; 81001; 84703; 85025; 96374; 99283; A4216; J2405

== ENCOUNTER 2022-04-24 18:55 | Emergency (ER) | payer MEDICAID, SELFPAY ==
[2022-04-24 18:57] VITALS: BP 127/76; PULSE 99; RESP 16; TEMP 36.2; O2SAT 98; BMI 27.4
== END 2022-04-24 19:40 | disposition left against medical advice (07) ==
LOC: ED 19:45
PROVIDERS: PCP Family Medicine
DX: Z53.21 Procedure and treatment not carried out due to patient leaving prior to being seen by health care provider (principal)

== ENCOUNTER 2022-08-28 11:53 | Emergency (ER) | payer MEDICAID, SELFPAY ==
[2022-08-28 11:53] VITALS: BP 136/97; PULSE 96; RESP 16; TEMP 36.2; O2SAT 98; BMI 25.9
--- NOTE | 2022-08-28 12:05 | EKG12_ITS ---
Test Reason : Blood Pressure : / mmHG Vent. Rate : 087 BPM Atrial Rate : 087 BPM P-R Int : 140 ms QRS Dur : 082 ms QT Int : 380 ms P-R-T Axes : 004 005 021 degrees QTc Int : 457 ms Normal sinus rhythm Normal ECG Confirmed by GO CANDELARIA, JEAN MARIE ([id number]), international editorial producer KRZYSZTOF PERALTA ([id number]) on 08/31/2022 10:56:08 AM Referred By: Confirmed By:SHERRY STILES MD
--- NOTE | 2022-08-28 12:06 | ED.VIS.DYS ---
HPI History of Present Illness Chief Complaint: Shortness of Breath Narrative Narrative: 31-year-old female presents with shortness of breath that began today. She states she feels like she cannot take a deep breath. Of note, she states that 2 days ago she began feeling flushed and feverish and extremely tired and fatigued. States whenever she exerts herself, she feels like she immediately has to to lay down and rest/sleep. She did not get out of bed very often 2 days ago. Yesterday she felt slightly improved. This morning when she awoke she states she feels like she cannot take a deep breath and still feels fatigued. She denies any dysuria or hematuria. She feels lightheaded and dizzy. No swelling of her legs, but is a smoker, and she has a Mirena IUD, but had bilateral tubal ligation. Additionally, she states that she has had her menses for the last week and a half and is still having spotting. [facility] Medical History Acid reflux Anemia complicating Asthma Breast disorder Current smoker Femur fracture Mother currently breast-feeding Post depression depression Thymoma Thyroid disease Home Medications famotidine 20 mg tablet 20 mg PO BID Check with primary doctor 06/02/21 [History Last Taken 07/14/21 15:00] albuterol sulfate 90 mcg/actuation aerosol inhaler 90 mcg inhalation PRN PRN asthma 07/15/21 [History Last Taken 07/15/21 07:00 90 mcg] diphenhydramine HCl 50 mg capsule 50 mg PO PRN PRN Nausea 07/15/21 [History Last Taken 07/14/21 22:00 100 mg] ondansetron HCl 4 mg tablet (Zofran) Nausea 07/15/21 [History Last Taken Unknown] promethazine 12.5 mg tablet 12.5 mg PO PRN PRN Nausea 07/15/21 [History Last Taken Unknown] buspirone 10 mg tablet 10 mg PO 09/09/21 [History Last Taken Unknown] hydrocodone-acetaminophen 5-325mg 5mg-325mg 1 tab PO Q6H PRN pain 3 days #10 tabs 02/21/22 [Rx Last Taken Unknown] Allergy/AdvReac Type Severity Reaction Status Date / Time gentamicin [Gentamicin] Allergy Unknown Other Verified 04/24/22 18:59 cat dander Allergy Other Verified 04/24/22 18:59 grass pollen Allergy Hives Verified 04/24/22 18:59 Family History Aunt Abuse, drug or alcohol maternal Thyroid disorder maternal Mother Abuse, drug or alcohol PTSD (post-traumatic stress disorder) Anxiety and depression Myocardial infarction Melanoma Grandfather Abuse, drug or alcohol maternal Brother Melanoma Grandmother Heart disease maternal Surgical History H/O dilation and curettage History of colonoscopy History of esophagogastroduodenoscopy History of laparoscopic cholecystectomy History of thoracotomy History of tonsillectomy and adenoidectomy Hx of section S/P tubal ligation Status post repeat low transverse section Social History Smoking Status: Current every day smoker tobacco type: cigarettes Electronic Cigarette Use: not used second hand exposure: Yes substance use type: marijuana ROS ROS ED ROS Narrative Constitutional: No fever but felt flushed and feverish 2 days ago, no chills. Positive malaise and fatigue. HEENT: No sore throat. No neck pain. No loss of vision. No rhinorrhea. Cardiovascular: Positive chest pain occasionally radiating to back. No palpitations. No pedal edema. Respiratory: No cough, positive shortness of breath, feels as if she cannot take a deep breath. Abdominal: No abdominal pain. No nausea. No vomiting. Genitourinary: No dysuria. No hematuria. Musculoskeletal: No myalgias. No arthralgias. Neurologic: No headaches. Positive dizziness. Positive lightheadedness. Skin: No rash. No change in color. Psychiatric: No depression. No anxiety. EXAM Physical Exam Narrative Exam Narrative: Afebrile. Vital signs noted. HEENT: Normocephalic. Atraumatic. PERRL, EOMI. Neck soft and supple. No point tenderness or step off. Cardiovascular: Regular rate and rhythm. No murmurs, rubs, or gallops appreciated. Respiratory: No tachypnea. Lungs clear to auscultation bilaterally. Gastrointestinal: Abdomen soft, nontender, with normoactive bowel sounds. No rebound or guarding. Neurological: Awake. Alert. Nonfocal, nonlateralizing. Skin: No rash. Normal color. No pallor. Musculoskeletal: No pedal edema. Full range of motion extremities. Const Vital Signs: 08/28/22 11:53 08/28/22 12:22 08/28/22 13:10 Temperature 97.1 F L Temperature Source Temporal Pulse Rate 96 87 Respiratory Rate 16 24 H Respiratory Effort Short of Breath Blood Pressure 136/97 H Blood Pressure Mean 110 Pulse Ox 98 98 Oxygen Delivery Method Room Air Room Air MDM MDM MDM Narrative Medical decision making narrative: Comprehensive work-up was pursued. In the differential diagnosis is pulmonary embolism versus acute coronary syndrome. EKG was obtained and interpreted by myself which demonstrates normal sinus rhythm at 87 bpm without ectopy or acute ST changes. No STEMI. Laboratory results were reviewed by myself and CBC shows slightly elevated white count of 11.3 which I think is nonspecific, normal hemoglobin of 14.1, platelet count normal at 346. D-dimer is negative at 0.37. Electrolyte panel also reviewed by myself shows chloride slightly elevated at 109 with a normal BUN of 11 and a creatinine of 0.5. Glucose appropriately elevated at 111 with a normal anion gap of 7. High-sensitivity troponin is less than 3 and given a low heart score, I do feel that this is sufficient for rule out. Serum test is negative. Chest x-ray in 1 view interpreted by myself shows no acute process, no pneumonia. I feel she be discharged safely home with follow-up. Patient complained that she had right ear pain and throat pain that started last night that she did not mention initially. Her right TM is without erythema or fluid collection. Posterior pharynx shows no erythema or exudate, airway patent, no drooling or trismus. At this point in time, I am unsure as to the cause of her symptoms especially her chest pain and shortness of breath along with fatigue but I feel she be discharged safely home with follow-up. Return instructions to the emergency department were reviewed. Disposition is discharged home in stable condition. Lab Data Attestation: I reviewed the patient's lab results. Labs: Laboratory Results - last 24 hr 08/28/22 08/28/22 08/28/22 12:20 12:20 12:20 WBC 11.3 H RBC 5.47 H Hgb 14.1 Hct 43.9 MCV 80.3 L MCH 25.8 L MCHC 32.1 RDW Std Deviation 53.1 H RDW Coeff of Anjana 19.0 H Plt Count 346 MPV 10.0 Immature Gran % (Auto) 0.400 Neut % (Auto) 68.0 Lymph % (Auto) 26.0 [place] % (Auto) 3.9 Eos % (Auto) 1.2 Baso % (Auto) 0.5 Absolute Neuts (auto) 7.7 Absolute Lymphs (auto) 2.95 Nucleated RBC % 0 D-Dimer Quant (PE/DVT) 0.37 Sodium 140 Potassium 3.8 Chloride 109 H Carbon Dioxide 24.0 Anion Gap 7 BUN 11 Creatinine 0.53 L Estim Creat Clear Calc 121.64 Est GFR (MDRD) Af Amer 173 Est GFR (MDRD) Non-Af 143 BUN/Creatinine Ratio 20.9 H Glucose 111 H Calcium 8.5 Troponin I High Sens < 3 L Serum , Qual 08/28/22 12:20 WBC RBC Hgb Hct MCV MCH MCHC RDW Std Deviation RDW Coeff of Anjana Plt Count MPV Immature Gran % (Auto) Neut % (Auto) Lymph % (Auto) [place] % (Auto) Eos % (Auto) Baso % (Auto) Absolute Neuts (auto) Absolute Lymphs (auto) Nucleated RBC % D-Dimer Quant (PE/DVT) Sodium Potassium Chloride Carbon Dioxide Anion Gap BUN Creatinine Estim Creat Clear Calc Est GFR (MDRD) Af Amer Est GFR (MDRD) Non-Af BUN/Creatinine Ratio Glucose Calcium Troponin I High Sens Serum , Qual NEGATIVE Radiography Diagnostic Testing: Clinical Impression(s) from Imaging Studies Chest X-Ray 08/28/22 12:25 IMPRESSION: No acute abnormality is seen. Electronically Signed: Nikolai Meyers MD at 12:43 EST , Discharge Plan Triage Chief Complaint: Shortness of Breath ED Provider: Remy Jacob Dx/Rx/DC Orders Clinical Impression: Shortness of breath, Chest pain, Fatigue Instructions: ED Chest Pain, Uncertain Cause, ED Dyspnea, ED Weakness (Uncertain Cause) Prescriptions: No Action buspirone 10 mg tablet 10 mg PO diphenhydramine HCl [Benadryl] 50 mg Capsule 50 mg PO PRN PRN (Reason: Nausea) promethazine 12.5 mg tablet 12.5 mg PO PRN PRN (Reason: Nausea) albuterol sulfate 90 mcg/actuation HFA aerosol inhaler 90 mcg INHALATION PRN PRN (Reason: asthma) ondansetron HCl [Zofran] 4 mg Tablet famotidine 20 MG tablet 20 mg PO BID hydrocodone-acetaminophen 5-325 mg tablet 1 tab PO Q6H PRN (Reason: pain) 3 Days Qty: 10 0RF Primary Care Provider: Azar Smith Referrals: Azar Smith MD [Primary Care Provider] - 3-5 Days if not improving Disposition Disposition: Home, Self Care
[2022-08-28] MEDS: 0.9% Normal Saline 1,000 ML 999 ML IV (12:23)
--- NOTE | 2022-08-28 12:25 | RAD_ITS ---
STUDY: X-RAY CHEST REASON FOR EXAM: Female, 31 years old. Shortness of Breath TECHNIQUE: Single AP portable view of the chest. COMPARISON: Comparison is made with prior study dated 03/18/2021. FINDINGS: EKG electrodes are seen. Surgical clips are once again seen in the medial aspect of the right upper lobe as well as along the right cardiac border. The lungs are clear and expanded. There is no demonstrated pleural abnormality. Normal size heart. Normal mediastinum and christa. Normal visualized pulmonary arteries. Normal visualized aortic arch and descending thoracic aorta. Normal visualized thoracic spine. Normal visualized ribs, clavicles, and shoulders. There is no demonstrated abnormality of the visualized soft tissue structures of the upper abdomen. RAD/Chest 1 View (Portable) IMPRESSION: No acute abnormality is seen. Electronically Signed: Nikolai Meyers MD at 12:43 EST ,
[2022-08-28 12:36] LABS: Absolute Lymphocyte Count 2.95 X10^3/uL (0.83-4.51); Absolute Neutrophil Count 7.7 X10^3/uL (2.0-7.7); Basophil# 0.06 X10^3/uL; Basophil% 0.5 % (0-1); Eosinophil# 0.14 X10^3/uL; Eosinophils% 1.2 % (0-5); Hematocrit 43.9 % (37-47); Hemoglobin 14.1 g/dL (12.0-15.0); Lymphocyte # 2.95 X10^3/ul (0.83-4.51); Mean Corp Hgb Conc 32.1 g/dL (32-36); Mean Corpuscular Hgb 25.8 pg (27.0-32.0); Mean Corpuscular Volume 80.3 fL (81-99); Monocyte# 0.44 X10^3/uL; Monocyte% 3.9 % (0-10); NRBC Flagged by Analyzer 0 % (0-5); Platelet Count 346 K/mm3 (150-450); RBC Distribution Width SD 53.1 fl (35.1-43.9); Red Blood Count 5.47 M/mm3 (4.2-5.4); White Blood Count 11.3 K/mm3 (4.4-11.0)
[2022-08-28 12:44] LABS: D-Dimer Quantitative (DVT/PE) 0.37 FEU/ug/m (0.27-0.49)
[2022-08-28 12:48] LABS: Anion Gap 7 (5-15); BUN 11 mg/dL (7-18); BUN/Creat Ratio 20.9 RATIO (10-20); Calcium,Total 8.5 mg/dL (8.5-10.1); Chloride 109 mmol/L (98-107); Creatinine, Serum 0.53 mg/dL (0.55-1.02); EST Glomerular Filtration Rate 143 mL/min (>60); Est Glom Filt Rate - Afr Amer 173 mL/min (>60); Estimated Creatinine Clearance 121.64 ml/min; Glucose 111 mg/dL (74-106); Potassium 3.8 mmol/L (3.5-5.1); Sodium Level 140 mmol/L (136-145); Troponin-I HS < 3 pg/mL (3.0-54.0)
[2022-08-28 12:58] LABS: Internal QC Validated? YES +Cl - CLEAR BKGD; Pregnancy, Serum, hCG Quali. NEGATIVE Negative
[2022-08-28 13:10] VITALS: PULSE 87; RESP 24; O2SAT 98
== END 2022-08-28 14:50 | disposition home or self-care (01) ==
PROVIDERS: Emergency Provider Emergency Medicine; PCP Family Medicine; Visit Provider Emergency Medicine
DX: R06.02 Shortness of breath (principal); R07.9 Chest pain, unspecified; R53.83 Other fatigue; F17.210 Nicotine dependence, cigarettes, uncomplicated
CPT/HCPCS: 71045; 80048; 84484; 84703; 85025; 85379; 87428; 93005; 96360; 99284; J7030

== ENCOUNTER 2023-03-26 10:31 | Emergency (ER) | payer MEDICAID, SELFPAY ==
[2023-03-26 10:32] VITALS: BP 121/74; PULSE 98; RESP 14; TEMP 36.3; O2SAT 100; BMI 28.1
--- NOTE | 2023-03-26 10:47 | EKG12_ITS ---
Test Reason : CP Blood Pressure : / mmHG Vent. Rate : 092 BPM Atrial Rate : 092 BPM P-R Int : 142 ms QRS Dur : 084 ms QT Int : 374 ms P-R-T Axes : 009 020 025 degrees QTc Int : 462 ms Normal sinus rhythm Low voltage QRS Borderline ECG Confirmed by LEORA CANDELARIA, WALESKA ([id number]), newspaper editor KRZYSZTOF PERALTA ([id number]) on 03/29/2023 1:11:17 PM Referred By: SANTOSH Confirmed By:WALESKA COREY MD
--- NOTE | 2023-03-26 10:48 | EDS_ITS ---
HPI History of Present Illness Chief Complaint: Chest Pain Informant: patient Onset/Context/Timing Onset: Today Timing: Intermittent Current Severity: Mild Maximum Severity: Severe Narrative Narrative: Patient presents with intermittent waxing and waning pain along the lower ribs bilaterally. She states she will get a wave of pain comes across her lower chest causing her to double over the ball. While the episode is happening she feels short of breath. The episode was then eased off and she will feel pretty much back to baseline between episodes. [facility] Medical History Acid reflux Anemia complicating Asthma Breast disorder Current smoker Femur fracture Mother currently breast-feeding Post depression depression Thymoma Thyroid disease Home Medications famotidine 20 mg tablet 20 mg PO BID Check with primary doctor 06/02/21 [History Last Taken 07/14/21 15:00] albuterol sulfate 90 mcg/actuation aerosol inhaler 90 mcg inhalation PRN PRN asthma 07/15/21 [History Last Taken 07/15/21 07:00 90 mcg] diphenhydramine HCl 50 mg capsule 50 mg PO PRN PRN Nausea 07/15/21 [History Last Taken 07/14/21 22:00 100 mg] ondansetron HCl 4 mg tablet (Zofran) Nausea 07/15/21 [History Last Taken Unknown] promethazine 12.5 mg tablet 12.5 mg PO PRN PRN Nausea 07/15/21 [History Last Taken Unknown] buspirone 10 mg tablet 10 mg PO 09/09/21 [History Last Taken Unknown] hydrocodone-acetaminophen 5-325mg 5mg-325mg 1 tab PO Q6H PRN pain 3 days #10 tabs 02/21/22 [Rx Last Taken Unknown] hydrocodone-acetaminophen 5-325mg 5mg-325mg 1 tab PO Q6H PRN PRN Pain 3 days #10 TABLETS 03/26/23 [Rx Last Taken Unknown] ondansetron 4 mg disintegrating tablet 4 mg PO Q8H PRN PRN Nausea #10 tabs 03/26/23 [Rx Last Taken Unknown] Allergy/AdvReac Type Severity Reaction Status Date / Time gentamicin [Gentamicin] Allergy Unknown Other Verified 03/26/23 10:32 cat dander Allergy Other Verified 03/26/23 10:32 grass pollen Allergy Hives Verified 03/26/23 10:32 Family History Aunt Abuse, drug or alcohol maternal Thyroid disorder maternal Mother Abuse, drug or alcohol PTSD (post-traumatic stress disorder) Anxiety and depression Myocardial infarction Melanoma Grandfather Abuse, drug or alcohol maternal Brother Melanoma Grandmother Heart disease maternal Surgical History H/O dilation and curettage History of colonoscopy History of esophagogastroduodenoscopy History of laparoscopic cholecystectomy History of thoracotomy History of tonsillectomy and adenoidectomy Hx of section S/P tubal ligation Status post repeat low transverse section Social History Smoking Status: Current every day smoker tobacco type: cigarettes Electronic Cigarette Use: not used second hand exposure: Yes substance use type: marijuana ROS ROS ED Constitutional Constitutional ED: Denies chills or fever(s) Eyes Eyes: Denies change in vision or discharge from eye(s) ENT ENT ED: Denies discharge from eye(s), rhinorrhea or sore throat Cardiovascular Cardiovascular: Reports chest pain; Denies palpitations Respiratory/Chest Respiratory/Chest: Reports dyspnea; Denies cough Gastrointestinal Gastrointestinal: Reports abdominal pain; Denies nausea or vomiting Genitourinary Genitourinary ED: Denies dysuria Musculoskeletal Musculoskeletal: Denies back pain or extremity pain Integumentary Denies Abrasions or rash Neurologic Neurologic: Denies headache(s) or weakness Psychiatric Psychiatric: Denies anxiety or depression Allergic/Immunologic Allergic/Immunologic ED: Denies lip swelling or urticaria EXAM Physical Exam Const Vital Signs: 03/26/23 10:32 03/26/23 10:50 03/26/23 13:31 Temperature 97.3 F L Temperature Source Temporal Pulse Rate 98 76 Respiratory Rate 14 14 Blood Pressure 121/74 H 124/79 H Blood Pressure Mean 89 94 Pulse Ox 100 98 Oxygen Delivery Method Room Air Room Air Room Air 03/26/23 14:46 Temperature 97.8 F Temperature Source Pulse Rate 64 Respiratory Rate 16 Blood Pressure 124/78 H Blood Pressure Mean Pulse Ox 99 Oxygen Delivery Method Positive well nourished and well developed General Appearance ED: well developed HEENT Reports normocephalic and head/scalp atraumatic Eyes PERRL and EOMs intact bilaterally Neck supple Chest Wall inspection of chest normal and palpation of chest normal Resp normal respiratory effort and clear to auscultation bilaterally Cardio regular rate and regular rhythm GI normal to inspection, nondistended, normoactive bowel sounds Palpation: soft Extremity normal to inspection Neuro oriented x3 and no sensory deficits noted Sensorium / Orientation: alert Motor Exam: strength 5/5 throughout Psych mental status grossly normal Skin no rashes or lesions noted MDM MDM MDM Narrative Medical decision making narrative: Patient placed on registered nurse cardiac telemetry. EKG obtained to evaluate for cardiac arrhythmia/ischemia. Chest x-ray obtained to evaluate for acute lung pathology, cardiac size, or mediastinal abnormality. Labwork obtained to evaluate for leukocytosis, anemia, and electrolyte derangement. Patient given fentanyl for pain. History & Record Review Additional record(s) reviewed:: Prior ED visit and Prior labs Lab Data Attestation: I reviewed the patient's lab results. Labs: Laboratory Results - last 24 hr 03/26/23 03/26/23 10:55 13:15 WBC 15.1 H RBC 5.18 Hgb 13.7 Hct 42.1 MCV 81.3 MCH 26.4 L MCHC 32.5 RDW Std Deviation 46.7 H RDW Coeff of Anjana 16.1 H Plt Count 335 MPV 9.4 Immature Gran % (Auto) 0.400 Neut % (Auto) 75.2 H Lymph % (Auto) 18.4 L [place] % (Auto) 4.9 Eos % (Auto) 0.7 Baso % (Auto) 0.4 Absolute Neuts (auto) 11.3 H Absolute Lymphs (auto) 2.78 Nucleated RBC % 0 D-Dimer Quant (PE/DVT) 0.58 H* Sodium 139 Potassium 3.4 L Chloride 106 Carbon Dioxide 28.0 Anion Gap 5 BUN 14 Creatinine 0.72 Estim Creat Clear Calc 80.57 Est GFR (MDRD) Af Amer 120 Est GFR (MDRD) Non-Af 99 BUN/Creatinine Ratio 19.3 Glucose 86 Calcium 9.0 Total Bilirubin 0.50 Direct Bilirubin 0.12 AST 14 L ALT 23 Alkaline Phosphatase 79 Troponin I High Sens < 3 L < 3 L Total Protein 7.2 Albumin 3.5 Globulin 3.7 Lipase 18 Radiography Chest X-Ray - ED: 1 View, Read by ED Physician, Normal, Heart, Lungs and Mediastinum Diagnostic Testing: Clinical Impression(s) from Imaging Studies Chest X-Ray 03/26/23 11:05 IMPRESSION: Normal x-ray examination of the chest. Electronically Signed: Nikolai Meyers MD at 11:18 EDT , Chest CTA 03/26/23 12:00 IMPRESSION: Normal CTA chest examination, without a demonstrated pulmonary embolism or arterial dissection. Electronically Signed: Nikolai Meyers MD at 12:47 EDT , EKG Initial EKG: Attestation: I personally reviewed and interpreted this EKG as follows: Interpretation: Sinus Rhythm (Sinus at 92 with no acute ischemia.) Differential Diagnosis Chest pain/SOB: pulmonary embolism Reason(s) PE less likely: Positive for Other (Negative CTA chest), ACS ACS: Positive for no evidence of ACS based on cardiac biomarkers and EKG without ischemia and pneumothorax Reason(s) pneumothorax less likely: Positive for bilateral breath sounds and [employer] SE[employer]IST withhout PTX Treatment and Re-Evaluation :: CBC was white count elevated at 15.1 with 75% neutrophils. On review of patient's prior labs she tends to run an elevated white count. Hemoglobin is stable at 13.7. Chemistry studies reveal slightly low potassium at 3.4. Renal function is normal. LFTs and lipase are normal. Troponin is less than 3 with 2-hour repeat also reporting at less than 3. D-dimer is slightly elevated at 0.58. Portable chest x-ray per my interpretation reveals no acute abnormalities. Radiology interpretation is reviewed and agrees. Given her elevated D-dimer she does undergo a CTA of the chest. This reveals no evidence of pulmonary embolism or acute abnormality. Test results are discussed with the patient. She is reassured with our work-up. I will write her a short course of Noemi and Amy. Return instructions are given. Discharge Plan Triage Chief Complaint: Chest Pain ED Provider: Mela Roberson Dx/Rx/DC Orders Clinical Impression: Abdominal pain, Chest pain Instructions: ED Abdominal Pain Unkn Cause Fem, ED Chest Pain, Noncardiac Prescriptions: New hydrocodone-acetaminophen 5-325 mg tablet 1 tab PO Q6H PRN PRN (Reason: Pain) 3 Days Qty: 10 0RF ondansetron 4 mg tablet,disintegrating 4 mg PO Q8H PRN PRN (Reason: Nausea) Qty: 10 0RF No Action buspirone 10 mg tablet 10 mg PO diphenhydramine HCl [Benadryl] 50 mg Capsule 50 mg PO PRN PRN (Reason: Nausea) promethazine 12.5 mg tablet 12.5 mg PO PRN PRN (Reason: Nausea) albuterol sulfate 90 mcg/actuation HFA aerosol inhaler 90 mcg INHALATION PRN PRN (Reason: asthma) ondansetron HCl [Zofran] 4 mg Tablet famotidine 20 MG tablet 20 mg PO BID hydrocodone-acetaminophen 5-325 mg tablet 1 tab PO Q6H PRN (Reason: pain) 3 Days Qty: 10 0RF Primary Care Provider: Azar Smith Referrals: Azar Smith MD [Primary Care Provider] - 1-2 Weeks Disposition Disposition: Home, Self Care Discharge Date/Time: 03/26/23 14:46
[2023-03-26] MEDS: 0.9% Normal Saline 1,000 ML 150 ML IV (10:59)
[2023-03-26] MEDS: fentaNYL 100 MCG/2 ML Ampul 25 MCG IV ×2 (10:59→12:57)
--- NOTE | 2023-03-26 11:05 | RAD_ITS ---
STUDY: X-RAY CHEST REASON FOR EXAM: Female, 32 years old. Chest pain TECHNIQUE: Single AP portable view of the chest. COMPARISON: Comparison is made with prior study dated August 28, 2022. FINDINGS: EKG electrodes are seen. Surgical clips are once again seen in the medial aspect of the right upper lobe. The lungs are clear and expanded. There is no demonstrated pleural abnormality. Normal size heart. Normal mediastinum and christa. Normal visualized pulmonary arteries. Normal visualized aortic arch and descending thoracic aorta. Normal visualized thoracic spine. Normal visualized ribs, clavicles, and shoulders. There is no demonstrated abnormality of the visualized soft tissue structures of the upper abdomen. RAD/Chest 1 View (Portable) IMPRESSION: Normal x-ray examination of the chest. Electronically Signed: Nikolai Meyers MD at 11:18 EDT ,
[2023-03-26 11:10] LABS: Absolute Lymphocyte Count 2.78 X10^3/uL (0.83-4.51); Absolute Neutrophil Count 11.3 X10^3/uL (2.0-7.7); Basophil# 0.06 X10^3/uL; Basophil% 0.4 % (0-1); Eosinophil# 0.11 X10^3/uL; Eosinophils% 0.7 % (0-5); Hematocrit 42.1 % (37-47); Hemoglobin 13.7 g/dL (12.0-15.0); Lymphocyte # 2.78 X10^3/ul (0.83-4.51); Lymphocyte % 18.4 % (19-41); Mean Corp Hgb Conc 32.5 g/dL (32-36); Mean Corpuscular Hgb 26.4 pg (27.0-32.0); Mean Corpuscular Volume 81.3 fL (81-99); Mean Platelet Vol. 9.4 fl (6.2-12.0); Monocyte# 0.74 X10^3/uL; Monocyte% 4.9 % (0-10); NRBC Flagged by Analyzer 0 % (0-5); Neutrophil # 11.32 X10^3/uL (2.7-7.7); Neutrophil % 75.2 % (47-70); Platelet Count 335 K/mm3 (150-450); RBC Distribution Width CV 16.1 % (11.6-14.6); RBC Distribution Width SD 46.7 fl (35.1-43.9); Red Blood Count 5.18 M/mm3 (4.2-5.4); White Blood Count 15.1 K/mm3 (4.4-11.0)
[2023-03-26 11:21] LABS: D-Dimer Quantitative (DVT/PE) 0.58 FEU/ug/m (0.27-0.49)
[2023-03-26 11:30] LABS: AST(SGOT) 14 U/L (15-37); Alanine Aminotransfer ALT/SGPT 23 U/L (13-56); Albumin, Serum 3.5 g/dL (3.2-5.0); Alkaline Phosphatase 79 U/L (45-117); Anion Gap 5 (5-15); BUN 14 mg/dL (7-18); BUN/Creat Ratio 19.3 RATIO (10-20); Bilirubin, Direct 0.12 mg/dL (0.00-0.30); Chloride 106 mmol/L (98-107); Creatinine, Serum 0.72 mg/dL (0.55-1.02); EST Glomerular Filtration Rate 99 mL/min (>60); Est Glom Filt Rate - Afr Amer 120 mL/min (>60); Estimated Creatinine Clearance 80.57 ml/min; Globulin 3.7 g/dL (2.2-4.2); Glucose 86 mg/dL (74-106); Lipase 18 U/L (13-75); Potassium 3.4 mmol/L (3.5-5.1); Protein, Total 7.2 g/dL (6.4-8.2); Sodium Level 139 mmol/L (136-145); Troponin-I HS (w/2H Reflex) < 3 pg/mL (3.0-54.0)
--- NOTE | 2023-03-26 12:00 | CT_ITS ---
STUDY: CTA CHEST REASON FOR EXAM: Female, 32 years old. cp, elevated d-dimer RADIATION DOSAGE (If Supplied By Facility): CTDIvol = ( 7.13 ) mGy, DLP = ( 184.48 ) mGycm TECHNIQUE: The examination was performed with the intravenous administration of IV 100mL Isovue-370. Post-processing of the angiographic images was performed, with multiplanar reformation and 3D reconstruction. Individualized dose optimization techniques were used for this CT. COMPARISON: Comparison is made with prior chest radiograph done earlier today and prior CT scan dated May 06, 2020. FINDINGS: Normal enhancement of the main pulmonary artery and right and left pulmonary arteries. Normal enhancement of the bilateral peripheral pulmonary arteries. There is no demonstrated pulmonary embolism. Normal thoracic aorta and visualized great vessels. There is no demonstrated aortic dissection. Normal heart and pericardium. Normal mediastinum. Normal hilar regions. Normal visualized trachea and bronchi. The lungs are well expanded. Normal pulmonary parenchyma. Normal pleura. Normal chest wall structures. Normal osseous structures. Normal visualized upper abdomen. CT/CTA Chest W/WO Contrast IMPRESSION: Normal CTA chest examination, without a demonstrated pulmonary embolism or arterial dissection. Electronically Signed: Nikolai Meyers MD at 12:47 EDT ,
[2023-03-26] MEDS: Ondansetron 4 MG/2 ML Vial IV (12:57)
[2023-03-26] MEDS: Ketorolac 30 MG/ML Syringe IV (12:57)
[2023-03-26 13:06] LABS: Reflex Troponin-HS? (from REC) Y
[2023-03-26 13:31] VITALS: BP 124/79; PULSE 76; RESP 14; O2SAT 98
[2023-03-26 13:40] LABS: Troponin-I HS < 3 pg/mL (3.0-54.0)
[2023-03-26 14:46] VITALS: BP 124/78; PULSE 64; RESP 16; TEMP 36.6; O2SAT 99
== END 2023-03-26 14:46 | disposition home or self-care (01) ==
PROVIDERS: Emergency Provider Emergency Medicine; PCP Family Medicine; Visit Provider Emergency Medicine
DX: R10.9 Unspecified abdominal pain (principal); R07.9 Chest pain, unspecified; F17.210 Nicotine dependence, cigarettes, uncomplicated; R06.00 Dyspnea, unspecified
CPT/HCPCS: 71045; 71275; 80048; 80076; 83690; 84484; 85025; 85379; 93005; 96361; 96374; 96375; 96376; 99284; J7030; Q9967; A4216; J2405

== ENCOUNTER 2023-05-26 14:12 | Emergency (ER) | payer MEDICAID, SELFPAY ==
[2023-05-26 14:13] VITALS: BP 131/75; PULSE 115; RESP 18; TEMP 36.6; O2SAT 98; BMI 29.2
--- NOTE | 2023-05-26 14:24 | EDS_ITS ---
HPI History of Present Illness Chief Complaint: Abd Pain Informant: patient Onset/Context/Timing Onset: Days (3 days) Context: Gradual Onset Narrative Narrative: Patient presents with 3-day history of nausea, vomiting, and diarrhea with lower abdominal cramping. 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 She think she likely had a fever, but did not have a functioning thermometer at home. No one else in the home has been sick. PFSH PFS Medical History Acid reflux Anemia complicating Asthma Breast disorder Current smoker Femur fracture Mother currently breast-feeding Post depression depression Thymoma Thyroid disease Home Medications diphenhydramine HCl 50 mg capsule 50 mg PO PRN PRN Nausea 07/15/21 [History Last Taken 07/14/21 22:00 100 mg] ondansetron 4 mg disintegrating tablet 4 mg PO Q8H PRN PRN Nausea #10 tabs 03/26/23 [Rx Last Taken Unknown] dicyclomine 20 mg tablet 20 mg PO BID PRN abdominal pain #14 tabs 05/26/23 [Rx Last Taken Unknown] prazosin 2 mg capsule 3 mg PO DAILY 05/26/23 [History Last Taken Unknown] promethazine 25 mg tablet 25 mg PO TID PRN nausea and vomiting #14 tabs 05/26/23 [Rx Last Taken Unknown] Allergy/AdvReac Type Severity Reaction Status Date / Time gentamicin [Gentamicin] Allergy Unknown Other Verified 03/26/23 10:32 cat dander Allergy Other Verified 03/26/23 10:32 grass pollen Allergy Hives Verified 03/26/23 10:32 Family History Aunt Abuse, drug or alcohol maternal Thyroid disorder maternal Mother Abuse, drug or alcohol PTSD (post-traumatic stress disorder) Anxiety and depression Myocardial infarction Melanoma Grandfather Abuse, drug or alcohol maternal Brother Melanoma Grandmother Heart disease maternal Surgical History H/O dilation and curettage History of colonoscopy History of esophagogastroduodenoscopy History of laparoscopic cholecystectomy History of thoracotomy History of tonsillectomy and adenoidectomy Hx of section S/P tubal ligation Status post repeat low transverse section Social History Smoking Status: Current every day smoker tobacco type: cigarettes Electronic Cigarette Use: not used second hand exposure: Yes substance use type: marijuana ROS ROS ED Constitutional Constitutional ED: Reports fever(s) and subjective; Denies chills Eyes Eyes: Denies change in vision or discharge from eye(s) ENT ENT ED: Denies discharge from eye(s), rhinorrhea or sore throat Cardiovascular Cardiovascular: Denies chest pain or palpitations Respiratory/Chest Respiratory/Chest: Denies cough or dyspnea Gastrointestinal Gastrointestinal: Reports abdominal pain, diarrhea, nausea and vomiting Genitourinary Genitourinary ED: Denies difficulty urinating or dysuria Musculoskeletal Musculoskeletal: Reports myalgias; Denies back pain or extremity pain Integumentary Denies Abrasions or rash Neurologic Neurologic: Denies headache(s) or weakness Psychiatric Psychiatric: Denies anxiety or depression Allergic/Immunologic Allergic/Immunologic ED: Denies lip swelling or urticaria EXAM Physical Exam Const Vital Signs: 05/26/23 14:13 Temperature 97.8 F Temperature Source Temporal Pulse Rate 115 H Respiratory Rate 18 Blood Pressure 131/75 H Blood Pressure Mean 93 Pulse Ox 98 Oxygen Delivery Method Room Air Positive well nourished and well developed General Appearance ED: well developed HEENT Reports dry mucous membranes Mouth ED: Yes dry mucous membranes Mouth: dry mucous membranes Eyes EOMs intact bilaterally Chest Wall inspection of chest normal and palpation of chest normal Resp normal respiratory effort and clear to auscultation bilaterally Cardio regular rhythm Rate: tachycardic GI GI Narrative: Abdomen soft with mild diffuse tenderness to palpation. No guarding or rebound. Hypoactive but present bowel sounds noted. Back/Spine no CVA tenderness Extremity normal to inspection Neuro oriented x3 and no sensory deficits noted Motor Exam: strength 5/5 throughout Psych mental status grossly normal Skin no rashes or lesions noted MDM MDM MDM Narrative Medical decision making narrative: IV line established. Patient given IV fluid bolus along with morphine, Bentyl, and Phenergan. Labwork obtained to evaluate for leukocytosis, anemia, and electrolyte derangement. Urinalysis obtained to evaluate for infection/hematuria. Lab Data Attestation: I reviewed the patient's lab results. Labs: Laboratory Results - last 24 hr 05/26/23 05/26/23 14:45 15:24 WBC 11.3 H RBC 5.64 H Hgb 14.5 Hct 43.9 MCV 77.8 L MCH 25.7 L MCHC 33.0 RDW Std Deviation 45.9 H RDW Coeff of Anjana 16.6 H Plt Count 314 MPV 9.1 Immature Gran % (Auto) 0.400 Neut % (Auto) 82.0 H Lymph % (Auto) 13.8 L [place] % (Auto) 3.5 Eos % (Auto) 0.0 Baso % (Auto) 0.3 Absolute Neuts (auto) 9.3 H Absolute Lymphs (auto) 1.56 Nucleated RBC % 0 Sodium 135 L Potassium 3.5 Chloride 105 Carbon Dioxide 24.0 Anion Gap 6 BUN 5 L Creatinine 0.57 Estim Creat Clear Calc 101.78 Est GFR (MDRD) Af Amer 159 Est GFR (MDRD) Non-Af 131 BUN/Creatinine Ratio 8.8 L Glucose 82 Calcium 8.9 Total Bilirubin 0.30 Direct Bilirubin 0.09 AST 30 ALT 35 Alkaline Phosphatase 94 Total Protein 7.5 Albumin 3.8 Globulin 3.7 Lipase 17 Serum , Qual NEGATIVE Urine Color Yellow Urine Clarity Clear Urine pH 7.0 Ur Specific [place] 1.010 Urine Protein 15 H Urine Glucose (UA) Normal Urine Ketones 50 H Urine Occult Blood 150 H Urine Nitrite Negative Urine Bilirubin Negative Urine Urobilinogen Normal Ur Leukocyte Esterase Negative Treatment and Re-Evaluation :: CBC was a white count 11.3 with 82% neutrophils. Patient does run a chronically elevated white count and this is actually improved when compared to prior values. Chemistry studies are unremarkable. LFTs and lipase normal. test negative. Urinalysis reveals no leukocyte esterase and no nitrites. On repeat evaluation patient reports feeling much improved. She is able to tolerate p.o. fluids. She be discharged with a prescription for Phenergan as well as Bentyl. Return instructions given. Discharge Plan Triage Chief Complaint: Abd Pain Other Complaint: Diarrhea Nausea/Vomiting ED Provider: Mela Roberson Dx/Rx/DC Orders Clinical Impression: Gastroenteritis Instructions: ED Gastroenteritis, Noninfectious Prescriptions: New promethazine 25 mg tablet 25 mg PO TID PRN (Reason: nausea and vomiting) Qty: 14 0RF dicyclomine 20 mg tablet 20 mg PO BID PRN (Reason: abdominal pain) Qty: 14 0RF No Action diphenhydramine HCl [Benadryl] 50 mg Capsule 50 mg PO PRN PRN (Reason: Nausea) ondansetron 4 mg tablet,disintegrating 4 mg PO Q8H PRN PRN (Reason: Nausea) Qty: 10 0RF prazosin 2 mg capsule 3 mg PO DAILY Patient Comments: TAKE 1 CAPSULE BY MOUTH DAILY AT BEDTIME. TAKE WITH 1 MG DOSE. Primary Care Provider: Azar Smith Referrals: Azar Smith MD [Primary Care Provider] - 3-5 Days if not improving Disposition Disposition: Home, Self Care
[2023-05-26] MEDS: proMETHazine 25 MG/ML Syringe 12.5 MG IM (14:44)
[2023-05-26] MEDS: Dicyclomine 20 MG/2 ML Vial IM (14:46)
[2023-05-26] MEDS: Morphine 4 MG/ML Syringe IV (14:49)
[2023-05-26] MEDS: 0.9% Normal Saline (1000mL) 1,000 ML 1000 ML IV (14:49)
[2023-05-26 14:55] LABS: Absolute Lymphocyte Count 1.56 X10^3/uL (0.83-4.51); Absolute Neutrophil Count 9.3 X10^3/uL (2.0-7.7); Basophil# 0.03 X10^3/uL; Basophil% 0.3 % (0-1); Hematocrit 43.9 % (37-47); Hemoglobin 14.5 g/dL (12.0-15.0); Lymphocyte # 1.56 X10^3/ul (0.83-4.51); Lymphocyte % 13.8 % (19-41); Mean Corpuscular Hgb 25.7 pg (27.0-32.0); Mean Corpuscular Volume 77.8 fL (81-99); Mean Platelet Vol. 9.1 fl (6.2-12.0); Monocyte% 3.5 % (0-10); NRBC Flagged by Analyzer 0 % (0-5); Neutrophil # 9.26 X10^3/uL (2.7-7.7); Platelet Count 314 K/mm3 (150-450); RBC Distribution Width CV 16.6 % (11.6-14.6); RBC Distribution Width SD 45.9 fl (35.1-43.9); Red Blood Count 5.64 M/mm3 (4.2-5.4); White Blood Count 11.3 K/mm3 (4.4-11.0)
[2023-05-26 15:02] LABS: Internal QC Validated? YES +Cl - CLEAR BKGD; Pregnancy, Serum, hCG Quali. NEGATIVE Negative
[2023-05-26 15:10] LABS: AST(SGOT) 30 U/L (15-37); Alanine Aminotransfer ALT/SGPT 35 U/L (13-56); Albumin, Serum 3.8 g/dL (3.2-5.0); Alkaline Phosphatase 94 U/L (45-117); Anion Gap 6 (5-15); BUN 5 mg/dL (7-18); BUN/Creat Ratio 8.8 RATIO (10-20); Bilirubin, Direct 0.09 mg/dL (0.00-0.30); Calcium,Total 8.9 mg/dL (8.5-10.1); Chloride 105 mmol/L (98-107); Creatinine, Serum 0.57 mg/dL (0.55-1.02); EST Glomerular Filtration Rate 131 mL/min (>60); Est Glom Filt Rate - Afr Amer 159 mL/min (>60); Estimated Creatinine Clearance 101.78 ml/min; Globulin 3.7 g/dL (2.2-4.2); Glucose 82 mg/dL (74-106); Lipase 17 U/L (13-75); Potassium 3.5 mmol/L (3.5-5.1); Protein, Total 7.5 g/dL (6.4-8.2); Sodium Level 135 mmol/L (136-145)
[2023-05-26 15:45] LABS: Bacteria 0 SEEN /hpf (None Seen); Mucous, Urine 0 SEEN /hpf (<or=2+); Red Blood Cells-Urine 0 SEEN /hpf (0-5)
[2023-05-26] MEDS: 0.9% Normal Saline (1000mL) 1,000 ML 150 ML IV (16:08)
[2023-05-26 16:14] LABS: Color, Urine Yellow (Yellow); Glucose, Dipstick Normal (Normal); Ketone-Dipstick 50 mg/dl (Negative); Leukocyte Esterase-Dipstick Negative /ul (Negative); Nitrite-Dipstick Negative (Negative); Occult Blood-Urine 150 /ul (Negative); Protein-Dipstick 15 mg/dl (Negative); Urine Bilirubin Dipstick Negative (Negative); Urine Clarity Clear (Clear); Urine Urobilinogen Normal (Normal)
[2023-05-26 16:46] VITALS: BP 132/65; PULSE 85; RESP 14; O2SAT 98
[2023-05-26 17:08] LABS: Squamous Epithelial Cells - UA 5-10 SEEN /hpf (5-10); White Blood Cells 0-5 SEEN /hpf (0-5)
== END 2023-05-26 16:53 | disposition home or self-care (01) ==
PROVIDERS: Emergency Provider Emergency Medicine; PCP Family Medicine; Visit Provider Emergency Medicine
DX: K52.9 Noninfective gastroenteritis and colitis, unspecified (principal); F17.210 Nicotine dependence, cigarettes, uncomplicated
CPT/HCPCS: J2405; 80048; 80076; 81001; 83690; 84703; 85025; 96361; 96372; 96374; 96375; 99283; J7030; A4216

== ENCOUNTER 2023-10-18 06:10 | Emergency (ER) | payer MEDICAID, SELFPAY ==
[2023-10-18 06:11] VITALS: BP 116/84; PULSE 73; RESP 22; TEMP 36.1; O2SAT 100; BMI 26.9
--- NOTE | 2023-10-18 06:23 | EDS_ITS ---
HPI <Dr. Сергей Oquendo MD - Last Filed: 10/18/23 06:29> History of Present Illness Chief Complaint: Nausea/Vomiting Informant: patient Narrative Narrative: Patient presents with nausea and vomiting. Patient states that started tonight. But then when I talked to her she actually felt normal Wednesday. Wednesday she vomited once. Wednesday she vomited multiple times and she has had diarrhea. And is continued this morning. No fevers or c hills. She does feel cold right now though. She has had a little bit of congestion sore throat and muscle aches. Minimal if any cough. She states everyone in her family is sick. She has 5 children and they are all sick like this. No firm diagnosis is known. Patient does have epigastric abdominal pain. She has had prior cholecystectomy. She has had tubal ligation and C-sections but no appendectomy. She does have a history of having nausea and vomiting not uncommonly. She tried to take Phenergan at home that she has but she threw it up very quickly. [facility] <Dr. Сергей Oquendo MD - Last Filed: 10/18/23 06:29> [facility] Medical History (Updated 10/18/23 @ 09:[address] Luke Arias, DO) Acid reflux Anemia complicating Asthma Breast disorder Current smoker Femur fracture Marijuana abuse Post depression Thymoma Thyroid disease Home Medications prazosin 2 mg capsule 3 mg PO DAILY 05/26/23 [History Last Taken Unknown] promethazine 25 mg tablet 25 mg PO TID PRN nausea and vomiting #14 tabs 05/26/23 [Rx Last Taken Unknown] ondansetron 4 mg disintegrating tablet 4 mg PO Q8H PRN PRN Nausea #10 tabs 10/18/23 [Rx Last Taken Unknown] Allergy/AdvReac Type Severity Reaction Status Date / Time gentamicin [Gentamicin] Allergy Unknown Other Verified 03/26/23 10:32 cat dander Allergy Other Verified 03/26/23 10:32 grass pollen Allergy Hives Verified 03/26/23 10:32 Family History Aunt Abuse, drug or alcohol maternal Thyroid disorder maternal Mother Abuse, drug or alcohol PTSD (post-traumatic stress disorder) Anxiety and depression Myocardial infarction Melanoma Grandfather Abuse, drug or alcohol maternal Brother Melanoma Grandmother Heart disease maternal Surgical History H/O dilation and curettage History of colonoscopy History of esophagogastroduodenoscopy History of laparoscopic cholecystectomy History of thoracotomy History of tonsillectomy and adenoidectomy Hx of section S/P tubal ligation Status post repeat low transverse section Social History Smoking Status: Current every day smoker tobacco type: cigarettes Electronic Cigarette Use: not used second hand exposure: Yes substance use type: marijuana ROS <Dr. Сергей Oquendo MD - Last Filed: 10/18/23 06:29> ROS ED ROS Narrative A complete review of systems was performed and is negative except as documented in the history of present illness. Some specific details below. Constitutional: No fevers or chills but she does have malaise and some myalgias. EYE: No visual complaints or pain. ENT: She has had some mild nasal congestion and slightly sore throat. CV: No chest pain or palpitations. Respiratory: Rare cough. Not short of breath. Family has been coughing more. GI: Please see history of present illness. : No frequency dysuria or hematuria. Musculoskeletal: No recent trauma. She does have diffuse myalgias. Skin: No rash. Nondiaphoretic. Neuro: No weakness or numbness. Endocrine: No polyuria or polydipsia. EXAM <Dr. Сергей Oquendo MD - Last Filed: 10/18/23 06:29> Physical Exam Narrative Exam Narrative: CONSTITUTIONAL: Patient is nontoxic in appearance. Patient is holding an emesis bag with some yellow liquid. No blood. HEENT: No notable trauma. Mucous membranes moist. No sinus tenderness. No indication of pain with swallowing. EYES: No conjunctival injection. No icterus. CARDIOVASCULAR: Regular rate. Regular rhythm. No notable murmur. No JVD. RESPIRATORY: No respiratory distress. Breathing is unlabored. No wheezes. No rhonchi. No rales. No pain with a deep breath. No coughing. Saturations are normal at 100% on room air showing no hypoxia. GASTROINTESTINAL: Not distended. Bowel sounds are normal. No tenderness. No guarding. No rebound. No palpable mass. No bruit. She has epigastric pain but no real tenderness. GENITOURINARY: No tenderness over the bladder. No CVA tenderness was found on either side. MUSCULOSKELETAL: Atraumatic. No peripheral edema. No tenderness. NEUROLOGICAL: Patient is alert and appropriate. No focal deficit noted. SKIN: No noted rashes. No diaphoresis. PSYCHIATRIC: Patient is calm. Mood is appropriate. Const Vital Signs: 10/18/23 06:11 10/18/23 08:20 Temperature 96.9 F L Temperature Source Temporal Pulse Rate 73 60 Respiratory Rate 22 H 16 Blood Pressure 116/84 H 120/54 L Blood Pressure Mean 94 76 Pulse Ox 100 99 Oxygen Delivery Method Room Air Room Air <Dr. Luke Arias DO - Last Filed: 10/18/23 09:01> Physical Exam Const Vital Signs: 10/18/23 06:11 10/18/23 08:20 Temperature 96.9 F L Temperature Source Temporal Pulse Rate 73 60 Respiratory Rate 22 H 16 Blood Pressure 116/84 H 120/54 L Blood Pressure Mean 94 76 Pulse Ox 100 99 Oxygen Delivery Method Room Air Room Air MDM <Dr. Сергей Oquendo MD - Last Filed: 10/18/23 06:29> [facility] Lab Data Labs: Laboratory Results - last 24 hr 10/18/23 10/18/23 06:20 07:40 WBC 21.6 H RBC 5.48 H Hgb 13.5 Hct 41.5 MCV 75.7 L MCH 24.6 L MCHC 32.5 RDW Std Deviation 44.2 H RDW Coeff of Anjana 17.1 H Plt Count 370 MPV 10.3 Immature Gran % (Auto) 0.400 Neut % (Auto) 91.0 H Lymph % (Auto) 6.2 L Esmeralda % (Auto) 2.0 Eos % (Auto) 0.1 Baso % (Auto) 0.3 Absolute Neuts (auto) 19.7 H Absolute Lymphs (auto) 1.35 Nucleated RBC % 0 Sodium 140 Potassium 3.8 Chloride 112 H Carbon Dioxide 21.0 Anion Gap 7 BUN 18 Creatinine 0.77 Estim Creat Clear Calc 94.09 Est GFR (MDRD) Af Amer 112 Est GFR (MDRD) Non-Af 92 BUN/Creatinine Ratio 23.5 H Glucose 159 H Calcium 9.3 Total Bilirubin 0.60 AST 22 ALT 22 Alkaline Phosphatase 89 Total Protein 7.8 Albumin 4.2 Globulin 3.6 Albumin/Globulin Ratio 1.2 Lipase 16 Serum , Qual NEGATIVE Urine Color Yellow Urine Clarity Sl. Cloudy Urine pH 8.0 Ur Specific Crosby 1.010 Urine Protein 30 H Urine Glucose (UA) Normal Urine Ketones 150 A* Urine Occult Blood Negative Urine Nitrite Negative Urine Bilirubin Negative Urine Urobilinogen Normal Ur Leukocyte Esterase 25 H Urine RBC 0 SEEN Urine WBC 0-5 SEEN Ur Squamous Epith Cells 5-10 SEEN Urine Bacteria 1+ Urine Mucus 0 SEEN Radiography Diagnostic Testing: Clinical Impression(s) from Imaging Studies Abdomen/Pelvis CT 10/18/23 06:39 IMPRESSION: Small hiatal hernia. Left upper abdominal nonspecific small bowel wall thickening which can be transient or secondary to mild infectious or inflammatory enteritis in the appropriate setting. Mild hepatomegaly. Common bile duct is slightly more prominent than typically seen postcholecystectomy without CT apparent stone. Correlate with biliary labs for evidence of obstruction. MRCP could further evaluate as clinically indicated. Electronically Signed: Thee Kendrick MD at 8:15 EST , <Dr. Luke Arias, DO - Last Filed: 10/18/23 09:01> [facility] Lab Data Attestation: I reviewed the patient's lab results. Lab results narrative: CBC was reviewed. There is a leukocytosis of 21.6. The remainder is within normal limits. Comprehensive metabolic profile was reviewed and was within normal limits. Lipase was reviewed and was normal. Serum hCG was reviewed and was negative. Urinalysis was reviewed. There is no evidence of urinary tract infection or hematuria. Labs: Laboratory Results - last 24 hr 10/18/23 10/18/23 06:20 07:40 WBC 21.6 H RBC 5.48 H Hgb 13.5 Hct 41.5 MCV 75.7 L MCH 24.6 L MCHC 32.5 RDW Std Deviation 44.2 H RDW Coeff of Anjana 17.1 H Plt Count 370 MPV 10.3 Immature Gran % (Auto) 0.400 Neut % (Auto) 91.0 H Lymph % (Auto) 6.2 L Esmeralda % (Auto) 2.0 Eos % (Auto) 0.1 Baso % (Auto) 0.3 Absolute Neuts (auto) 19.7 H Absolute Lymphs (auto) 1.35 Nucleated RBC % 0 Sodium 140 Potassium 3.8 Chloride 112 H Carbon Dioxide 21.0 Anion Gap 7 BUN 18 Creatinine 0.77 Estim Creat Clear Calc 94.09 Est GFR (MDRD) Af Amer 112 Est GFR (MDRD) Non-Af 92 BUN/Creatinine Ratio 23.5 H Glucose 159 H Calcium 9.3 Total Bilirubin 0.60 AST 22 ALT 22 Alkaline Phosphatase 89 Total Protein 7.8 Albumin 4.2 Globulin 3.6 Albumin/Globulin Ratio 1.2 Lipase 16 Serum , Qual NEGATIVE Urine Color Yellow Urine Clarity Sl. Cloudy Urine pH 8.0 Ur Specific Crosby 1.010 Urine Protein 30 H Urine Glucose (UA) Normal Urine Ketones 150 A* Urine Occult Blood Negative Urine Nitrite Negative Urine Bilirubin Negative Urine Urobilinogen Normal Ur Leukocyte Esterase 25 H Urine RBC 0 SEEN Urine WBC 0-5 SEEN Ur Squamous Epith Cells 5-10 SEEN Urine Bacteria 1+ Urine Mucus 0 SEEN Radiography Diagnostic Testing: Clinical Impression(s) from Imaging Studies Abdomen/Pelvis CT 10/18/23 06:39 IMPRESSION: Small hiatal hernia. Left upper abdominal nonspecific small bowel wall thickening which can be transient or secondary to mild infectious or inflammatory enteritis in the appropriate setting. Mild hepatomegaly. Common bile duct is slightly more prominent than typically seen postcholecystectomy without CT apparent stone. Correlate with biliary labs for evidence of obstruction. MRCP could further evaluate as clinically indicated. Electronically Signed: Thee Kendrick MD at 8:15 EST Reading Location ID and State: [facility] / [place] Tel , Service support , CT scan of the abdomen pelvis was obtained. There is left upper nonspecific small bowel wall thickening. There is no evidence of bowel obstruction or perforation. The common bile duct is slightly more prominent than usual but there is no evidence of obstruction. This was interpreted by the radiologist was also independently reviewed by myself. Treatment and Re-Evaluation :: Care of the patient was turned over to me pending CT scan and labs. Patient is feeling better on reevaluation. Patient was advised of her findings. Patient was instructed to start with small amounts of liquids more frequently. Patient was instructed to advance her diet to a bland diet as tolerated. Patient was instructed to follow-up with her primary care physician in 5 to 7 days. Patient was given a prescription for Zofran. Patient understood and was agreeable with the plan. All questions were answered. Discharge Plan Triage Chief Complaint: Nausea/Vomiting ED Provider: Сергей Oquendo Dx/Rx/DC Orders Clinical Impression: Nausea vomiting and diarrhea, Gastroenteritis Instructions: ED Gastroenteritis, Viral (Adult) Prescriptions: New ondansetron [ondansetron] 4 mg tablet,disintegrating 4 mg PO Q8H PRN PRN (Reason: Nausea) Qty: 10 0RF No Action prazosin 2 mg capsule 3 mg PO DAILY Patient Comments: TAKE 1 CAPSULE BY MOUTH DAILY AT BEDTIME. TAKE WITH 1 MG DOSE. promethazine 25 mg tablet 25 mg PO TID PRN (Reason: nausea and vomiting) Qty: 14 0RF Primary Care Provider: Azar Smith Referrals: Azar Smith MD [Primary Care Provider] - 3-5 Days Disposition Disposition: Home, Self Care
[2023-10-18] MEDS: 0.9% Normal Saline (1000mL) 1,000 ML 1000 ML IV (06:26)
[2023-10-18] MEDS: Ondansetron 4 MG/2 ML Vial IV (06:26)
[2023-10-18] MEDS: Dicyclomine 20 MG/2 ML Vial IM (06:26)
[2023-10-18 06:35] LABS: Absolute Lymphocyte Count 1.35 X10^3/uL (0.83-4.51); Absolute Neutrophil Count 19.7 X10^3/uL (2.0-7.7); Basophil# 0.07 X10^3/uL; Basophil% 0.3 % (0-1); Eosinophil# 0.02 X10^3/uL; Eosinophils% 0.1 % (0-5); Hematocrit 41.5 % (37-47); Hemoglobin 13.5 g/dL (12.0-15.0); Lymphocyte # 1.35 X10^3/ul (0.83-4.51); Lymphocyte % 6.2 % (19-41); Mean Corp Hgb Conc 32.5 g/dL (32-36); Mean Corpuscular Hgb 24.6 pg (27.0-32.0); Mean Corpuscular Volume 75.7 fL (81-99); Mean Platelet Vol. 10.3 fl (6.2-12.0); Monocyte# 0.44 X10^3/uL; NRBC Flagged by Analyzer 0 % (0-5); Neutrophil # 19.67 X10^3/uL (2.7-7.7); Platelet Count 370 K/mm3 (150-450); RBC Distribution Width CV 17.1 % (11.6-14.6); RBC Distribution Width SD 44.2 fl (35.1-43.9); Red Blood Count 5.48 M/mm3 (4.2-5.4); White Blood Count 21.6 K/mm3 (4.4-11.0)
[2023-10-18 06:38] LABS: Internal QC Validated? YES +Cl - CLEAR BKGD; Pregnancy, Serum, hCG Quali. NEGATIVE Negative
--- NOTE | 2023-10-18 06:39 | CT_ITS ---
INDICATION: Pain nausea, vomiting, elevated white count EXAMINATION: CT ABDOMEN AND PELVIS WITH CONTRAST - CT Abdomen And Pelvis W/ Contrast Injection TECHNIQUE: Helically acquired images were obtained of the abdomen and pelvis following IV contrast. A radiation dose optimization technique was used for this scan. IV Contrast dosage and agent: 100 mL Isovue-300 Oral contrast: None. COMPARISON: None. FINDINGS: LOWER CHEST: Lung bases are clear. No cardiomegaly or pericardial effusion. LIVER: Homogeneous. Mild hepatomegaly. No focal mass. GALLBLADDER AND BILIARY TREE: Absent gallbladder. Biliary ductal dilatation to 1.1 cm, slightly more prominent than typical post postcholecystectomy. No CT apparent ductal stone. . No intra- or extrahepatic biliary ductal dilation. PANCREAS: No focal cystic or solid mass. SPLEEN: Normal size without focal cystic or solid mass. ADRENAL GLANDS: No nodules. KIDNEYS AND URETERS: Normal renal size and position. No hydronephrosis. PERITONEUM: No ascites or free air. No other fluid collection. BOWEL: Small hiatal hernia. No other acute gastric finding.. Mild small bowel wall thickening in the left upper abdomen without distention or surrounding inflammation. Normal appendix. No acute colonic finding. LYMPH NODES: Subcentimeter small bowel mesenteric lymph nodes. VESSELS: Aorta is non-dilated. URINARY BLADDER: Unremarkable. REPRODUCTIVE ORGANS: Unremarkable uterus. Right ovarian 1.7 cm cyst. Unremarkable left adnexa.. ABDOMINAL WALL: No discrete abdominal or pelvic wall hernia. BONES: No lytic or blastic abnormality. CT/Abdomen/Pelvis W IV Cont ONLY IMPRESSION: Small hiatal hernia. Left upper abdominal nonspecific small bowel wall thickening which can be transient or secondary to mild infectious or inflammatory enteritis in the appropriate setting. Mild hepatomegaly. Common bile duct is slightly more prominent than typically seen postcholecystectomy without CT apparent stone. Correlate with biliary labs for evidence of obstruction. MRCP could further evaluate as clinically indicated. Electronically Signed: Thee Kendrick MD at 8:15 EST ,
[2023-10-18 06:47] LABS: ALB/GLOB Ratio 1.2 RATIO (0.9-2.4); AST(SGOT) 22 U/L (15-37); Alanine Aminotransfer ALT/SGPT 22 U/L (13-56); Albumin, Serum 4.2 g/dL (3.2-5.0); Alkaline Phosphatase 89 U/L (45-117); Anion Gap 7 (5-15); BUN 18 mg/dL (7-18); BUN/Creat Ratio 23.5 RATIO (10-20); Calcium,Total 9.3 mg/dL (8.5-10.1); Chloride 112 mmol/L (98-107); Creatinine, Serum 0.77 mg/dL (0.55-1.02); EST Glomerular Filtration Rate 92 mL/min (>60); Est Glom Filt Rate - Afr Amer 112 mL/min (>60); Estimated Creatinine Clearance 94.09 ml/min; Globulin 3.6 g/dL (2.2-4.2); Glucose 159 mg/dL (74-106); Lipase 16 U/L (13-75); Potassium 3.8 mmol/L (3.5-5.1); Protein, Total 7.8 g/dL (6.4-8.2); Sodium Level 140 mmol/L (136-145)
--- OUTSIDE RECORDS SUMMARY | 2023-10-18 06:59 | XMS RPT_ITS | CCD ---
Author Name Unknown Address [address] [place] [address] Organization [facility] Care Team Providers Care Lining Caser Name Role Phone AZAR SMITH Primary Care Unavailable FAWN ORITZ Attending Unavailable FAWN ORTIZ Admitting Unavailable Azar Smith MD Primary Care Provider Azar Smith MD Primary Care Provider Azar Smith MD Primary Care Provider Azar Smith MD Primary Care Provider JACKIE LÓPEZ Attending Unavailable AZAR SMITH Primary Care Unavailable JESSICA CÁRDENAS DO Admitting Unavailable JESSICA CÁRDENAS DO Primary Care Unavailable JESSICA CÁRDENAS DO Attending Unavailable AZAR SMITH MD Consulting Unavailable AZAR SMITH MD Referring Unavailable PROVIDER, UNKNOWN Consulting Unavailable AZAR KOCH Attending Unavailable AZAR SMITH MD Consulting Unavailable AZAR SMIHT MD Referring Unavailable AZAR KOCH Admitting Unavailable AZAR KOCH Primary Care Unavailable PROVIDER, UNKNOWN Consulting Unavailable AZAR SMITH Primary Care Unavailable SAMARIA SINGH Attending Unavailable AZAR SMITH Primary Care Unavailable AZAR SMITH Primary Care Unavailable AZAR SMITH Primary Care Unavailable AZAR SMITH Primary Care Unavailable OGNZALEZ, ANNABELLE Referring Unavailable GONZALEZ, ANNABELLE Attending Unavailable AZAR SMITH Primary Care Unavailable SAMARIA SINGH Attending Unavailable AZAR SMITH Primary Care Unavailable SAMARIA SINGH Attending Unavailable AZAR SMITH Primary Care Unavailable SAMARIA SINGH Attending Unavailable AZAR SMITH Primary Care Unavailable SAMARIA SINGH Attending Unavailable AZAR SMITH Primary Care Unavailable SAMARIA SINGH Attending Unavailable AZAR SMITH Primary Care Unavailable ANNABELLE GONZALEZ Attending Unavailable AZAR SMITH Primary Care Unavailable SAMARIA SINGH Attending Unavailable AZAR SMITH Primary Care Unavailable SAMARIA SINGH Attending Unavailable AZAR SMITH Primary Care Unavailable AZAR SMITH Primary Care Unavailable AZAR SMITH Primary Care Unavailable SAMARIA SINGH Attending Unavailable AZAR SMITH Primary Care Unavailable SAMARIA SINGH Attending Unavailable AZAR SMITH Primary Care Unavailable SAMARIA SINGH Attending Unavailable AZAR SMITH Primary Care Unavailable ANNABELLE GONZALEZ Attending Unavailable AZAR SMITH Primary Care Unavailable AZAR SMITH Primary Care Unavailable AZAR SMITH Primary Care Unavailable RAJAN SMITH Referring Unavailable Allergies Allergy Classification Reported Allergen(s) Allergy Type Date of Onset Reaction(s) Facility (20 sources) Cat; Translations: [CATS] Allergy to substance 3 Anaphylaxis [facility] (20 sources) Gentamicin; Translations: [GENTAMICIN] Drug Allergy 3 Other: See Comments [facility] Work Phone: (20 sources) Grass pollen; Translations: [GRASS POLLEN] Drug Allergy 4 Hives [facility] (1 source) Gentamicin Sulfate (FPC) Drug Allergy [facility] Repository Medications Current Medications Medication Drug Class(es) Dates Sig (Normalized) Sig (Original) amoxicillin 875 mg / clavulanate 125 mg oral tablet (3 sources) Penicillin-class Antibacterial Start: 02-03-2023 End: 02-08-2023 take 1 tablet by mouth twice daily amoxicillin-clav ulanic acid (AUGMENTIN) 875-125 mg per tablet Take 1 tablet by mouth twice daily for 5 days. 10 tablet 0 02/03/2023 02/08/2023 Active Completed/Discontinued Medications Medication Drug Class(es) Dates Sig (Normalized) Sig (Original) acetaminophen 300 mg / butalbital 50 mg / caffeine 40 mg oral capsule (3 sources) Barbiturate, Central Nervous System Stimulant, Methylxanthine Start: 07-22-2021 End: 01-02-2022 take 1 capsule by mouth every four hours as needed acetaminophen 300 mg-caffeine 40 mg-butalbital 50 mg (FIORICET) per capsule Take 1 capsule by mouth every 4 hours as needed for headache. 20 capsule 0 07/22/2021 01/02/2022 Discontinued Problems Active Problems Problem Classification Problem Date Documented Date Episodic/Chronic Abdominal pain (7 sources) Pain in female pelvis; Translations: [Pelvic and perineal pain] Episodic Adjustment disorders (20 sources) Adjustment disorder with anxious mood; Translations: [Adjustment disorder with anxiety] Onset: 08-31-2022 08-31-2022 Chronic Anxiety disorders (20 sources) Posttraumatic stress disorder; Translations: [Post-traumatic stress disorder, unspecified] Onset: 08-31-2022 Chronic Asthma (20 sources) Asthma; Translations: [Unspecified asthma, uncomplicated] Onset: 08-31-2022 08-31-2022 Chronic Contraceptive and procreative management (4 sources) Patient encounter status; Translations: [Encounter for insertion of intrauterine contraceptive device] Episodic Diseases of white blood cells (20 sources) Leukocytosis; Translations: [Elevated white blood cell count, unspecified] Onset: 06-26-2020 06-26-2020 Chronic E Codes: Natural/environment (1 source) Cat scratch - wound; Translations: [Scratched by cat, initial encounter] Episodic Genitourinary symptoms and ill-defined conditions (1 source) Genuine stress incontinence; Translations: [Stress incontinence (female) (male)] 05-13-2023 Chronic Headache; including migraine (20 sources) Ophthalmic migraine; Translations: [Migraine with aura, not intractable, without status migrainosus] Onset: 08-31-2022 08-31-2022 Chronic Immunizations and screening for infectious disease (1 source) Suspected disease caused by 2019-nCoV; Translations: [Suspected COVID-19 virus infection] Episodic Menstrual disorders (3 sources) Menorrhagia; Translations: [Excessive and frequent menstruation with regular cycle] 05-13-2023 Chronic Nausea and vomiting (1 source) Nausea; Translations: [Nausea] 04-21-2023 Episodic Other ear and sense organ disorders (1 source) Acute otitis externa; Translations: [Swimmer's ear, left ear] Episodic Other ear and sense organ disorders (1 source) Acute otitis externa of right ear; Translations: [Unspecified acute noninfective otitis externa, right ear] Episodic Other ear and sense organ disorders (1 source) Acute otitis externa of left ear; Translations: [Unspecified acute noninfective otitis externa, left ear] Episodic Other ear and sense organ disorders (1 source) Impacted cerumen in left ear; Translations: [Impacted cerumen, left ear] Episodic Other female genital disorders (2 sources) Deep pain on intercourse; Translations: [Deep dyspareunia] Chronic Other female genital disorders (2 sources) Vaginal discharge; Translations: [Other specified noninflammatory disorders of vagina] Episodic Other female genital disorders (1 source) Vaginal irritation; Translations: [Other specified noninflammatory disorders of vagina] Episodic Other injuries and conditions due to external causes (1 source) Muscle strain; Translations: [Other injury of unspecified body region, initial encounter] Episodic Other lower respiratory disease (1 source) Cough; Translations: [Acute cough] Episodic Other non-traumatic joint disorders (1 source) Pain of right wrist; Translations: [Pain in right wrist] Episodic Other and delivery including normal (20 sources) Unplanned ; Translations: [Encounter for supervision of normal , unspecified, unspecified trimester] Onset: 12-05-2020 12-05-2020 Episodic Other upper respiratory infections (20 sources) Sinusitis; Translations: [Chronic sinusitis, unspecified] Onset: 08-31-2022 08-31-2022 Chronic Otitis media and related conditions (3 sources) Acute right otitis media; Translations: [Otitis media, unspecified, right ear] Episodic Personality disorders (20 sources) Borderline personality disorder; Translations: [Borderline personality disorder] Onset: 09-25-2022 09-25-2022 Chronic Prolapse of female genital organs (2 sources) Midline cystocele; Translations: [Cystocele, midline] Chronic Residual codes; unclassified (1 source) Influenza-like symptoms; Translations: [Other general symptoms and signs] Episodic Residual codes; unclassified (8 sources) Gestation period, 32 weeks; Translations: [32 weeks gestation of ] Onset: 08-31-2022 08-31-2022 Episodic Residual codes; unclassified (1 source) Pain; Translations: [Pain, unspecified] Episodic Residual codes; unclassified (2 sources) Nicotine user; Translations: [Tobacco use] 06-23-2023 Episodic Spondylosis; intervertebral disc disorders; other back problems (1 source) Neck pain; Translations: [Cervicalgia] Episodic Substance-related disorders (20 sources) Tobacco user; Translations: [Nicotine dependence, unspecified, uncomplicated] Onset: 10-27-2016 06-10-2017 Chronic Thyroid disorders (20 sources) Hypothyroidism; Translations: [Hypothyroidism, unspecified] Onset: 08-31-2022 08-31-2022 Chronic Unclassified (1 source) Acute cough; Translations: [Acute cough] Onset: 02-03-2023 Viral infection (4 sources) Viral disease; Translations: [Viral infection, unspecified] Episodic Past or Other Problems Problem Classification Problem Date Documented Da te Episodic/Chronic Cancer; other and unspecified primary (20 sources) History of lipoma; Translations: [Personal history of other benign neoplasm] Onset: 11-24-2012 08-18-2021 Episodic Cardiac dysrhythmias (20 sources) Palpitations; Translations: [Palpitations] Onset: 08-31-2022 08-31-2022 Episodic Conditions associated with dizziness or vertigo (20 sources) Benign paroxysmal positional vertigo; Translations: [Benign paroxysmal vertigo, unspecified ear] Onset: 08-31-2022 08-31-2022 Episodic Diabetes or abnormal glucose tolerance complicating ; childbirth; or the puerperium (20 sources) Impaired glucose tolerance in ; Translations: [Abnormal glucose complicating ] Onset: 04-02-2021 04-02-2021 Episodic Diseases of mouth; excluding dental (20 sources) Ulcer of mouth; Translations: [Other forms of stomatitis] Onset: 08-31-2022 08-31-2022 Episodic Disorders of teeth and jaw (20 sources) Toothache; Translations: [Other specified disorders of teeth and supporting structures] Onset: 08-31-2022 08-31-2022 Episodic Headache; including migraine (20 sources) Headache; Translations: [Headache, unspecified headache type] Onset: 08-31-2022 Episodic Lymphadenitis (20 sources) Lymphadenitis; Translations: [Nonspecific lymphadenitis, unspecified] Onset: 08-31-2022 08-31-2022 Episodic Malaise and fatigue (20 sources) Fatigue; Translations: [Other fatigue] Onset: 08-31-2022 Episodic Other circulatory disease (20 sources) History of clinical finding in subject; Translations: [Personal history of other diseases of the circulatory system] Onset: 11-24-2012 08-18-2021 Episodic Other complications of ; puerperium affecting management of mother (20 sources) Deliveries by ; Translations: [Delivery by section] Onset: 08-31-2022 08-31-2022 Episodic Other complications of (20 sources) Maternal tobacco use; Translations: [Smoking (tobacco) complicating , unspecified trimester] Onset: 11-24-2012 12-05-2020 Episodic Other complications of (20 sources) Nausea and vomiting; Translations: [Vomiting of , unspecified] Onset: 12-05-2020 12-05-2020 Episodic Other complications of (20 sources) finding; Translations: [Supervision of with insufficient care, unspecified trimester] Onset: 06-17-2021 06-17-2021 Episodic Other connective tissue disease (20 sources) Diastasis of muscle; Translations: [Separation of muscle (nontraumatic), unspecified site] Onset: 08-31-2022 08-31-2022 Episodic Other lower respiratory disease (20 sources) Dyspnea; Translations: [Shortness of breath] Onset: 08-31-2022 08-31-2022 Episodic Other nutritional; endocrine; and metabolic disorders (20 sources) H/O: hypothyroidism; Translations: [Personal history of other endocrine, nutritional and metabolic disease] Onset: 11-24-2012 10-27-2016 Episodic Other upper respiratory disease (20 sources) Vocal cord dysfunction; Translations: [Other diseases of vocal cords] Onset: 08-31-2022 08-31-2022 Episodic Other upper respiratory infections (20 sources) Viral upper respiratory tract infection; Translations: [Acute upper respiratory infection, unspecified] Onset: 08-31-2022 08-31-2022 Episodic Previous (20 sources) ; Translations: [Maternal care for unspecified type scar from previous delivery] Onset: 12-05-2020 12-05-2020 Episodic Residual codes; unclassified (16 sources) History of drug abuse; Translations: [Personal history of other specified conditions] Onset: 10-27-2016 12-05-2020 Episodic Residual codes; unclassified (20 sources) Insomnia; Translations: [Insomnia, unspecified] Onset: 08-31-2022 08-31-2022 Episodic Residual codes; unclassified (1 source) Tobacco use; Translations: [Nicotine use] Onset: 05-20-2023 Episodic Residual codes; unclassified (1 source) Pain, unspecified; Translations: [Pain] Onset: 02-25-2023 Episodic Screening and history of mental health and substance abuse codes (20 sources) H/O: anxiety state; Translations: [Personal history of other mental and behavioral disorders] Onset: 11-24-2012 01-03-2013 Episodic Sprains and strains (20 sources) Strain of back muscle; Translations: [Strain of muscle, fascia and tendon of lower back, initial encounter] Onset: 09-04-2016 09-04-2016 Episodic Substance-related disorders (3 sources) Marijuana user; Translations: [Cannabis use, unspecified, uncomplicated] Onset: 05-20-2023 06-23-2023 Episodic Results Test Name Value Interpretation Reference Range Facil ity Vital Signs Date Time Vital Sign Value Performing Clinician Faci lity 06-22-2023 08:33-0400 Diastolic blood pressure 60 mm[Hg] Annabelle Gonzalez APRN.BOROUGH COORDINATOR Work Phone: [facility] 06-22-2023 08:33-0400 Heart rate 83 /min Annabelle Gonzalez APRN.BOROUGH COORDINATOR Work Phone: [facility] 06-22-2023 08:33-0400 SaO2% (BldA) [Mass fraction] 99 % Annabelle Gonzalez APRN.BOROUGH COORDINATOR Work Phone: [facility] 06-22-2023 08:33-0400 Systolic blood pressure 102 mm[Hg] Annabelle Gonzalez APRN.BOROUGH COORDINATOR Work Phone: [facility] 06-22-2023 07:26-0400 Body weight 68.95 kg Annabelle Gonzalez APRN.BOROUGH COORDINATOR Work Phone: [facility] 05-13-2023 10:51-0400 Body weight 67.13 kg Annabelle Gonzalez APRN.BOROUGH COORDINATOR Work Phone: [facility] 05-13-2023 10:51-0400 Diastolic blood pressure 78 mm[Hg] Annabelle Gonzalez APRN.BOROUGH COORDINATOR Work Phone: [facility] 05-13-2023 10:51-0400 Systolic blood pressure 120 mm[Hg] Annabelle Gonzalez REJECT OPENER.BOROUGH COORDINATOR Work Phone: [facility] 04-21-2023 11:48-0400 Body temperature 98.49 [degF] Kerry Sierra REJECT OPENER.BOROUGH COORDINATOR Work Phone: [facility] 04-21-2023 11:48-0400 Body weight 65.32 kg Kerry Sierra REJECT OPENER.BOROUGH COORDINATOR Work Phone: [facility] 04-21-2023 11:48-0400 Diastolic blood pressure 82 mm[Hg] Kerry Sierra REJECT OPENER.BOROUGH COORDINATOR Work Phone: [facility] 04-21-2023 11:48-0400 Heart rate 97 /min Kerry Sierra REJECT OPENER.BOROUGH COORDINATOR Work Phone: [facility] 04-21-2023 11:48-0400 Respiratory rate 16 /min Kerry Sierra REJECT OPENER.BOROUGH COORDINATOR Work Phone: [facility] 04-21-2023 11:48-0400 SaO2% (BldA) [Mass fraction] 99 % Kerry Sierra REJECT OPENER.BOROUGH COORDINATOR Work Phone: [facility] 04-21-2023 11:48-0400 Systolic blood pressure 122 mm[Hg] Kerry Sierra REJECT OPENER.BOROUGH COORDINATOR Work Phone: [facility] 02-25-2023 16:04-0400 Body temperature 97.7 [degF] Rajan Smith REJECT OPENER.BOROUGH COORDINATOR Work Phone: [facility] 02-25-2023 16:04-0400 Body weight 62.6 kg Rajan Smith REJECT OPENER.BOROUGH COORDINATOR Work Phone: [facility] 02-25-2023 16:04-0400 Diastolic blood pressure 84 mm[Hg] Rajan Smith REJECT OPENER.BOROUGH COORDINATOR Work Phone: [facility] 02-25-2023 16:04-0400 Heart rate 96 /min Rajan Smith REJECT OPENER.BOROUGH COORDINATOR Work Phone: [facility] 02-25-2023 16:04-0400 Respiratory rate 14 /min Rajan Smith REJECT OPENER.BOROUGH COORDINATOR Work Phone: [facility] 02-25-2023 16:04-0400 SaO2% (BldA) [Mass fraction] 100 % Rajan Smith APRN.BOROUGH COORDINATOR Work Phone: [facility] 02-25-2023 16:04-0400 Systolic blood pressure 134 mm[Hg] Rajan Smith REJECT OPENER.BOROUGH COORDINATOR Work Phone: [facility] 02-03-2023 12:59-0400 Body temperature 98.71 [degF] Krislyn Aberegg PA Work Phone: [facility] 02-03-2023 12:59-0400 Body weight 62.14 kg Krislyn Aberegg PA Work Phone: [facility] 02-03-2023 12:59-0400 Diastolic blood pressure 66 mm[Hg] Krislyn Aberegg PA Work Phone: [facility] 02-03-2023 12:59-0400 Heart rate 96 /min Krislyn Aberegg PA Work Phone: [facility] 02-03-2023 12:59-0400 Respiratory rate 16 /min Krislyn Aberegg PA Work Phone: [facility] 02-03-2023 12:59-0400 SaO2% (BldA) [Mass fraction] 97 % Krislyn Aberegg PA Work Phone: [facility] 02-03-2023 12:59-0400 Systolic blood pressure 110 mm[Hg] Krislyn Aberegg PA Work Phone: [facility] 11-18-2022 19:49-0400 Body temperature 98.8 [degF] Adrian Miller APRN.BOROUGH COORDINATOR Work Phone: [facility] 11-18-2022 19:49-0400 Body weight 65.86 kg Adrian Miller REJECT OPENER.BOROUGH COORDINATOR Work Phone: [facility] 11-18-2022 19:49-0400 Diastolic blood pressure 80 mm[Hg] Adrian Angela REJECT OPENER.BOROUGH COORDINATOR Work Phone: [facility] 11-18-2022 19:49-0400 Heart rate 101 /min Adrian Miller REJECT OPENER.BOROUGH COORDINATOR Work Phone: [facility] 11-18-2022 19:49-0400 Respiratory rate 18 /min Adrian Moranbury REJECT OPENER.BOROUGH COORDINATOR Work Phone: [facility] 11-18-2022 19:49-0400 SaO2% (BldA) [Mass fraction] 98 % Adrian Miller REJECT OPENER.BOROUGH COORDINATOR Work Phone: [facility] 11-18-2022 19:49-0400 Systolic blood pressure 108 mm[Hg] Adrian [place] REJECT OPENER.BOROUGH COORDINATOR Work Phone: [facility] 11-16-2022 12:28-0400 Body temperature 98.2 [degF] Krislyn Aberegg PA Work Phone: [facility] 11-16-2022 12:28-0400 Body weight 67.77 kg Krislyn Aberegg PA Work Phone: [facility] 11-16-2022 12:28-0400 Diastolic blood pressure 80 mm[Hg] Krislyn Aberegg PA Work Phone: [facility] 11-16-2022 12:28-0400 Heart rate 76 /min Krislyn Aberegg PA Work Phone: [facility] 11-16-2022 12:28-0400 Respiratory rate 18 /min Krislyn Aberegg PA Work Phone: [facility] 11-16-2022 12:28-0400 SaO2% (BldA) [Mass fraction] 100 % Krislyn Aberegg PA Work Phone: [facility] 11-16-2022 12:28-0400 Systolic blood pressure 110 mm[Hg] Krislyn Aberegg PA Work Phone: [facility] 11-02-2022 15:16-0400 Body temperature 99.1 [degF] Rajan Smith APRN.BOROUGH COORDINATOR Work Phone: [facility] 11-02-2022 15:16-0400 Body weight 65.86 kg Rajan Smith APRN.BOROUGH COORDINATOR Work Phone: [facility] 11-02-2022 15:16-0400 Diastolic blood pressure 72 mm[Hg] Rajan Smith APRN.BOROUGH COORDINATOR Work Phone: [facility] 11-02-2022 15:16-0400 Heart rate 102 /min Rajan Smith APRN.BOROUGH COORDINATOR Work Phone: [facility] 11-02-2022 15:16-0400 Respiratory rate 16 /min Rajan Smith APRN.BOROUGH COORDINATOR Work Phone: [facility] 11-02-2022 15:16-0400 SaO2% (BldA) [Mass fraction] 97 % Rajan Smith APRN.BOROUGH COORDINATOR Work Phone: [facility] 11-02-2022 15:16-0400 Systolic blood pressure 120 mm[Hg] Rajan Smith APRN.BOROUGH COORDINATOR Work Phone: [facility] 09-21-2022 10:41-0500 Body weight 66.68 kg Maeagn [place] REJECT OPENER.BOROUGH COORDINATOR Work Phone: [facility] 09-21-2022 10:41-0500 Diastolic blood pressure 72 mm[Hg] Maegan [place] REJECT OPENER.BOROUGH COORDINATOR Work Phone: [facility] 09-21-2022 10:41-0500 Systolic blood pressure 104 mm[Hg] Maegan [place] REJECT OPENER.BOROUGH COORDINATOR Work Phone: [facility] 09-11-2022 11:05-0500 Body weight 66.77 kg Maegan Brianna REJECT OPENER.BOROUGH COORDINATOR Work Phone: [facility] 09-11-2022 11:05-0500 Diastolic blood pressure 78 mm[Hg] Maegan [place] REJECT OPENER.BOROUGH COORDINATOR Work Phone: [facility] 09-11-2022 11:05-0500 Systolic blood pressure 120 mm[Hg] Maegan [place] REJECT OPENER.BOROUGH COORDINATOR Work Phone: [facility] 09-07-2022 09:55-0500 Body weight 66.22 kg Maegan [place] REJECT OPENER.BOROUGH COORDINATOR Work Phone: [facility] 09-07-2022 09:55-0500 Diastolic blood pressure 78 mm[Hg] Maegan Brianna REJECT OPENER.BOROUGH COORDINATOR Work Phone: [facility] 09-07-2022 09:55-0500 Heart rate 100 /min Maegan [place] REJECT OPENER.BOROUGH COORDINATOR Work Phone: [facility] 09-07-2022 09:55-0500 Respiratory rate 12 /min Maegan Brianna REJECT OPENER.BOROUGH COORDINATOR Work Phone: [facility] 09-07-2022 09:55-0500 SaO2% (BldA) [Mass fraction] 100 % Maegan [place] REJECT OPENER.BOROUGH COORDINATOR Work Phone: [facility] 09-07-2022 09:55-0500 Systolic blood pressure 118 mm[Hg] Maegan Brianna REJECT OPENER.BOROUGH COORDINATOR Work Phone: [facility] 08-31-2022 13:54-0500 Body height 157.5 cm Azar Smith MD Work Phone: [facility] 08-31-2022 13:54-0500 Body temperature 98.4 [degF] Azar Smith MD Work Phone: [facility] 08-31-2022 13:54-0500 Body weight 64.86 kg Azar Smith MD Work Phone: [facility] 08-31-2022 13:54-0500 Diastolic blood pressure 84 mm[Hg] Azar Smith MD Work Phone: [facility] 08-31-2022 13:54-0500 Heart rate 92 /min Azar Smith MD Work Phone: [facility] 08-31-2022 13:54-0500 SaO2% (BldA) [Mass fraction] 99 % Azar Smith MD Work Phone: [facility] 08-31-2022 13:54-0500 Systolic blood pressure 130 mm[Hg] Azar Smith MD Work Phone: [facility] 08-17-2022 16:33-0500 Body temperature 99 [degF] Arpita Praisler-Wood REJECT OPENER.BOROUGH COORDINATOR Work Phone: [facility] 08-17-2022 16:33-0500 Body weight 65.77 kg Arpita Praisler-Wood REJECT OPENER.BOROUGH COORDINATOR Work Phone: [facility] 08-17-2022 16:33-0500 Diastolic blood pressure 74 mm[Hg] Arpita Praisler-Wood REJECT OPENER.BOROUGH COORDINATOR Work Phone: [facility] 08-17-2022 16:33-0500 Heart rate 100 /min Arpita Praisler-Wood REJECT OPENER.BOROUGH COORDINATOR Work Phone: [facility] 08-17-2022 16:33-0500 Respiratory rate 16 /min Arpita Praisler-Wood REJECT OPENER.BOROUGH COORDINATOR Work Phone: [facility] 08-17-2022 16:33-0500 SaO2% (BldA) [Mass fraction] 98 % Arpita Praisler-Wood REJECT OPENER.BOROUGH COORDINATOR Work Phone: [facility] 08-17-2022 16:33-0500 Systolic blood pressure 112 mm[Hg] Arpita Praisler-Wood REJECT OPENER.BOROUGH COORDINATOR Work Phone: [facility] 06-21-2022 11:15-0400 Body temperature 98.1 [degF] Arpita Praisler-Wood REJECT OPENER.BOROUGH COORDINATOR Work Phone: [facility] 06-21-2022 11:15-0400 Body weight 68.04 kg Arpita Praisler-Wood REJECT OPENER.BOROUGH COORDINATOR Work Phone: [facility] 06-21-2022 11:15-0400 Diastolic blood pressure 64 mm[Hg] Arpita Praisler-Wood REJECT OPENER.BOROUGH COORDINATOR Work Phone: [facility] 06-21-2022 11:15-0400 Heart rate 90 /min Arpita Praisler-Wood REJECT OPENER.BOROUGH COORDINATOR Work Phone: [facility] 06-21-2022 11:15-0400 Respiratory rate 16 /min Arpita Praisler-Wood REJECT OPENER.BOROUGH COORDINATOR Work Phone: [facility] [facility] 06[facility]22 11:15-0400 SaO2% (BldA) [Mass fraction] 98 % Arpita Praisler-Wood REJECT OPENER.BOROUGH COORDINATOR Work Phone: [facility] 06-21-2022 11:15-0400 Systolic blood pressure 106 mm[Hg] Arpita Praisler-Wood REJECT OPENER.BOROUGH COORDINATOR Work Phone: [facility] 05-13-2022 11:09-0400 Diastolic blood pressure 60 mm[Hg] Annabelle Gonzalez REJECT OPENER.BOROUGH COORDINATOR Work Phone: [facility] 05-13-2022 11:09-0400 Heart rate 108 /min Annabelle Gonzalez REJECT OPENER.BOROUGH COORDINATOR Work Phone: [facility] 05-13-2022 11:09-0400 Respiratory rate 14 /min Annabelle Gonzalez REJECT OPENER.BOROUGH COORDINATOR Work Phone: [facility] 05-13-2022 11:09-0400 SaO2% (BldA) [Mass fraction] 98 % Annabelle Gonzalez REJECT OPENER.BOROUGH COORDINATOR Work Phone: [facility] 05-13-2022 11:09-0400 Systolic blood pressure 98 mm[Hg] Annabelle Solimanhrie REJECT OPENER.BOROUGH COORDINATOR Work Phone: [facility] 05-13-2022 10:38-0400 Body weight 68.49 kg Annabelle Gonzalez REJECT OPENER.BOROUGH COORDINATOR Work Phone: [facility] 04-29-2022 12:07-0400 Body height 157.5 cm Annabelle Gonzalez APRN.BOROUGH COORDINATOR Work Phone: [facility] 04-29-2022 12:07-0400 Body weight 68.49 kg Annabelle Gonzalez APRN.BOROUGH COORDINATOR Work Phone: [facility] 04-29-2022 12:07-0400 Diastolic blood pressure 80 mm[Hg] Annabelle Gonzalez APRN.BOROUGH COORDINATOR Work Phone: [facility] 04-29-2022 12:07-0400 Respiratory rate 14 /min Annabelle Gonzalez APRN.BOROUGH COORDINATOR Work Phone: [facility] 04-29-2022 12:07-0400 Systolic blood pressure 118 mm[Hg] Annabelle Gonzalez APRN.BOROUGH COORDINATOR Work Phone: [facility] 03-29-2022 12:39-0400 Body temperature 98.49 [degF] Clare Athy PA-C Work Phone: [facility] 03-29-2022 12:39-0400 Body weight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 Moderate symptoms or moderate difficulty in social, occupational or school functioning. TREATMENT PLAN: 1. Decrease the Luvox back to 100 mg to address OCD symptoms. 2. Continue Minipress at the same dose. 3. Encouraged to reschedule appointment for individual psychotherapy. MEDICATION CHANGES: - Decreased Luvox back to 100 mg. Follow Up: 2 months I spent a total of 36 minutes on the date of the service which included preparing to see the patient, [id number] patient care, completing clinical documentation, obtaining and/or reviewing separately obtained history, counseling and educating the patient/family/caregiver, ordering medications, tests, or procedures, communicating with other HCPs (not separately reported), independently interpreting results (not separately reported), and communicating results to the patient/family/caregiver. ADD ON PSYCHOTHERAPY CODE : No SIGNATURE: Samaria Singh APRN.CNP PATIENT NAME: Jessica Prieto DATE: September 29, 2023 TIME: 10:08 AM documented in this encounter [facility] 08-25-2023 Note HNO ID: [id number] Author: SAMARIA SINGH APRN.CNP Service: ? Author Type: Nurse Practitioner Type: Progress Notes Filed: 09/01/2023 16:29 Note Text: FOLLOW UP - PSYCHIATRIC PROGRESS NOTE Visit Type:Virtual Visit utilizing two-way audio and video for at least a portion of the visit. Consent for virtual visit obtained verbally. Confidentiality limitations with virtual visits reviewed with the patient and guardian, if present, who have accepted the risk verbally prior to proceeding with encounter. I have communicated my name and active licensure. The patient's identity and physical location were verified at the time of this visit. Either the patient or their legal senior customer service representative has been informed of the risks and benefits of -- and alternatives to -- treatment through a remote evaluation and consents to proceed with the evaluation remotely. Reason for Visit: Outpatient follow-up and safety monitoring of previously prescribed psychiatric medication, psychotherapy or other treatment CC: Follow up regarding increase in Luvox. HPI: Treatment plan from last visit on 07/28/2023: 1. Increase Luvox to 100 mg and discontinue Nortriptyline due to lack of efficacy. 2. Continue Minipress at the same dose to address trauma related nightmares. 3. Start individual psychotherapy with Dr. López. Today Jessica shares that I am good . Luvox has been helpful her anxiety and OCD symptoms. Intrusive thoughts are significantly better . They are not as intense and she has been able to work through them more. She has noticed that she focuses on various thoughts at the same time. Denies any side effects from the Luvox. Reports feeling agitated and overstimulating at times. I will have a melt down . Does attribute that to her having to take care of 5 children. I am worried about my night time medication . Her 2 year old's sleep schedule is messed up due to him iam RSV. If she wakes up at night to help her baby, she feels sleepy and dizzy. Unable to function at night if she wakes up while taking the current dose of Minipress. In agreement to try a lower dose temporarily until her 2 year old feels better. Her is helping her care for her children. Has a therapy appointment with Dr. López on the . Risks and benefits of the medication, including any black box warnings, were discussed with the patient. Interval Progress: Slightly improved PATIENT DATA: Generalized Anxiety Disorder Scale (MITCHELL-7) MITCHELL - 7 SCORES 06/23/2023 07/28/2023 08/25/2023 MITCHELL-7 Score 21 9 14 (0-4) minimal anxiety, (5-9) mild anxiety, (10-14) moderate anxiety, (15-21) severe anxiety Patient Health Questionnaire (PHQ-9) PHQ-9 07/13/2023 07/28/2023 08/25/2023 Score 15 1 4 (0-4) minimal depression, (5-9) mild depression, (10-14) moderate depression, (15-19) moderately severe depression, (20-27) severe depression PROMIS Global Health PROMIS Global Health - (T-Scores - the mean of general population = 50. 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 PONV (postoperative nausea and vomiting) depression Thymoma THYMOLIPOMA Thyroid disease PAST SURGICAL HISTORY Procedure Laterality Date ADENOIDECTOMY PRIMARY Adenoidectomy w/ tonsils DELIVERY ONLY , low transverse DELIVERY ONLY , low transverse DELIVERY ONLY 06/02/2017 DELIVERY ONLY DELIVERY ONLY 07/15/2021 [facility] COLONOSCOPY GEN ANES Colonoscopy and endoscopy DANDC (INCOMPLETE AB), ANY TRIMESTER LAPAROSCOPY SURG CHOLECYSTECTOMY 09/19/2012 LAPS SURG CHOLECYSTECTOMY W/CHOLANGIOGRAPHY `09-19-12 MIRENA 05/13/2022 8 yr SALPINGECTOMY Bilateral 07/15/2021 THORACOTOMY, CYST REMOVAL 2006, 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, 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 TONSILLECTOMY PRIMARY/SECONDARY Tonsillectomy w/ adenoids Current Outpatient Medications Medication Sig Dispense Refill fluvoxaMINE (LUVOX) 100 mg tablet Take 1 tablet by mouth daily at bedtime. 30 tablet 1 prazosin (MINIPRESS) 1 mg cap Take 1 capsule by mouth daily at bedtime. Take with 2 mg dose. 90 capsule 0 prazosin (MINIPRESS) 2 mg cap Take 1 capsule by mouth daily at bedtime. Take with 1 mg dose. 90 capsule 0 miSOPROStol (CYTOTEC) 200 mcg tablet Insert 2 tablets vaginally night prior to EMB and 2 tablets morning of procedure. Each dose should be in vagina for 6-8 hours. 4 tablet 0 albuterol HFA (PROVENTIL HFA, VENTOLIN HFA) 90 mcg/actuation inhaler Inhale 2 P (more content not included)... [facility] 07-28-2023 Note HNO ID: [id number] Author: Samaria Singh APRN.BOROUGH COORDINATOR Service: ? Author Type: Nurse Practitioner Type: Progress Notes Filed: 07/28/2023 1:27 PM Note Text: FOLLOW UP - PSYCHIATRIC PROGRESS NOTE Visit Type:Virtual Visit utilizing two-way audio and video for at least a portion of the visit. Consent for virtual visit obtained verbally. Confidentiality limitations with virtual visits reviewed with the patient and guardian, if present, who have accepted the risk verbally prior to proceeding with encounter. I have communicated my name and active licensure. The patient's identity and physical location were verified at the time of this visit. Either the patient or their legal senior customer service representative has been informed of the risks and benefits of -- and alternatives to -- treatment through a remote evaluation and consents to proceed with the evaluation remotely. Reason for Visit: Outpatient follow-up and safety monitoring of previously prescribed psychiatric medication, psychotherapy or other treatment CC: Follow up regarding cross taper from Nortriptyline to Luvox. HPI: Treatment plan from last visit on 07/13/2023: 1. Increase Luvox dose to 75 mg at bedtime and reduce Nortriptyline dose to 50 mg. 2. Continue Minipress at the same dose. 3. Schedule an appointment for individual psychotherapy with Dr. López. Today Jessica shares that she is doing well. Had to take her son to a doctor's appointment due a wrestling related injury. She is sitting in car with her young baby. The intrusive thoughts have gotten so much better . Continues to struggle with anxiety. Attributes it to the things happening in the world. She has been hyper fixating on things as her thought process is not occupied by the intrusive thoughts. Has been thinking more about physics and philosophy. Has noticed that she is obsessing over governing forces. Stuck in analysis but she shares that she has been enjoying hyper fixating on these topics as she is able to do that without anxiety. It has been getting in the way of her doing chores and other things though. Notices that she gets irritable if she is interrupted. She has not seen Dr. López yet for therapy. Has an appointment in August for individual psychotherapy. Has been doing well with the cross tapering of Nortriptyline to Luvox. Denies side effects from Luvox. In agreement to increase dose further to address some anxiety. She is sleeping well at night as she is tired and denies any nightmares as long as she takes the Minipress. Her fluctuating appetite has become more consistent with the improvement in anxiety and intrusive thoughts. Risks and benefits of the medication, including any black box warnings, were discussed with the patient. Interval Progress: Slightly improved PATIENT DATA: Generalized Anxiety Disorder Scale (MITCHELL-7) MITCHELL - 7 SCORES 05/20/2023 06/23/2023 07/28/2023 MITCHELL-7 Score 21 21 9 (0-4) minimal anxiety, (5-9) mild anxiety, (10-14) moderate anxiety, (15-21) severe anxiety Patient Health Questionnaire (PHQ-9) PHQ-9 06/23/2023 07/13/2023 07/28/2023 Score 7 15 1 (0-4) minimal depression, (5-9) mild depression, (10-14) moderate depression, (15-19) moderately severe depression, (20-27) severe depression PROMIS Global Health PROMIS Global Health - (T-Scores - the mean of general population = 50. 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 PONV (postoperative nausea and vomiting) depression Thymoma THYMOLIPOMA Thyroid disease PAST SURGICAL HISTORY Procedure Laterality Date ADENOIDECTOMY PRIMARY Adenoidectomy w/ tonsils DELIVERY ONLY , low transverse DELIVERY ONLY , low transverse DELIVERY ONLY 06/02/2017 DELIVERY ONLY DELIVERY ONLY 07/15/2021 [facility] COLONOSCOPY GEN ANES Colonoscopy and endoscopy DANDC (INCOMPLETE AB), ANY TRIMESTER LAPAROSCOPY SURG CHOLECYSTECTOMY 09/19/2012 LAPS SURG CHOLECYSTECTOMY W/CHOLANGIOGRAPHY `09-19-12 MIRENA 05/13/2022 8 yr SALPINGECTOMY Bilateral 07/15/2021 THORACOTOMY, CYST REMOVAL 2006, 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, 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 TONSILLECTOMY PRIMARY/SECONDARY Tonsillectomy w/ adenoids Current Outpatient Medications Medication Sig Dispense Refill fluvoxaMINE (LUVOX) 50 mg tablet Take 1.5 tablets by mouth daily at bedtime. 45 tablet 0 nortriptyline (PAMELOR) 50 mg capsule Take 1 capsule by mouth daily at bedtime. 60 capsule 0 prazosin (MINI (more content not included)... [facility] 07-28-2023 Instructions Samaria Singh APRN.CNP - 07/28/2023 1:23 PM EST Salvador Lopez, It was good to talk with you today. Below is a summary of the plan that we discussed during your appointment for reference. Of course, if you have any questions or concerns do not hesitate to reach out to me via a message or call. Samaria Jackson APRN.CNP PLAN AND FOLLOW UP: YOU SHOULD SEEK IMMEDIATE MEDICAL ATTENTION AT THE NEAREST EMERGENCY DEPARTMENT OR BY CALLING 911, IF ANY OF THE FOLLOWING OCCURS: - New or worsening thoughts of harming yourself (suicidal thoughts) or others (homicidal thoughts) - Not feeling safe at home or worrying about your ability to remain safe at home If you are having thoughts of harming yourself or others, then you can: - Call the National Suicide Hotline at 592 - Text 4HOPE to 703 Medications: - Luvox 100 mg - take 1 tablet once daily. - Stop Nortriptyline - Continue Minipress at the same dose. Next appointment: --Schedule in 4 weeks or sooner if needed -- You may call the department appointment line at [phone] to schedule your appointment. -- Please call my nurse Rosa Elena at [phone] or send me a message in [employer] with any questions or concerns between appointments. documented in this encounter [facility] 07-28-2023 History of Presen t illness Narrative FOLLOW UP - PSYCHIATRIC PROGRESS NOTE Visit Type:Virtual Visit utilizing two-way audio and video for at least a portion of the visit. Consent for virtual visit obtained verbally. Confidentiality limitations with virtual visits reviewed with the patient and guardian, if present, who have accepted the risk verbally prior to proceeding with encounter. I have communicated my name and active licensure. The patient's identity and physical location were verified at the time of this visit. Either the patient or their legal senior customer service representative has been informed of the risks and benefits of -- and alternatives to -- treatment through a remote evaluation and consents to proceed with the evaluation remotely. Reason for Visit: Outpatient follow-up and safety monitoring of previously prescribed psychiatric medication, psychotherapy or other treatment CC: Follow up regarding cross taper from Nortriptyline to Luvox. HPI: Treatment plan from last visit on 07/13/2023: 1. Increase Luvox dose to 75 mg at bedtime and reduce Nortriptyline dose to 50 mg. 2. Continue Minipress at the same dose. 3. Schedule an appointment for individual psychotherapy with Dr. López. Today Jessica shares that she is doing well. Had to take her son to a doctor's appointment due a wrestling related injury. She is sitting in car with her young baby. The intrusive thoughts have gotten so much better . Continues to struggle with anxiety. Attributes it to the things happening in the world. She has been hyper fixating on things as her thought process is not occupied by the intrusive thoughts. Has been thinking more about physics and philosophy. Has noticed that she is obsessing over governing forces. Stuck in analysis but she shares that she has been enjoying hyper fixating on these topics as she is able to do that without anxiety. It has been getting in the way of her doing chores and other things though. Notices that she gets irritable if she is interrupted. She has not seen Dr. López yet for therapy. Has an appointment in August for individual psychotherapy. Has been doing well with the cross tapering of Nortriptyline to Luvox. Denies side effects from Luvox. In agreement to increase dose further to address some anxiety. She is sleeping well at night as she is tired and denies any nightmares as long as she takes the Minipress. Her fluctuating appetite has become more consistent with the improvement in anxiety and intrusive thoughts. Risks and benefits of the medication, including any black box warnings, were discussed with the patient. Interval Progress: Slightly improved PATIENT DATA: Generalized Anxiety Disorder Scale (MITCHELL-7) MITCHELL - 7 SCORES 05/20/2023 06/23/2023 07/28/2023 MITCHELL-7 Score 21 21 9 (0-4) minimal anxiety, (5-9) mild anxiety, (10-14) moderate anxiety, (15-21) severe anxiety Patient Health Questionnaire (PHQ-9) PHQ-9 06/23/2023 07/13/2023 07/28/2023 Score 7 15 1 (0-4) minimal depression, (5-9) mild depression, (10-14) moderate depression, (15-19) moderately severe depression, (20-27) severe depression PROMIS Global Health PROMIS Global Health - (T-Scores - the mean of general population = 50. 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 PONV (postoperative nausea and vomiting) depression Thymoma THYMOLIPOMA Thyroid disease PAST SURGICAL HISTORY Procedure Laterality Date ADENOIDECTOMY PRIMARY <AGE 12 Adenoidectomy w/ tonsils DELIVERY ONLY , low transverse DELIVERY ONLY , low transverse DELIVERY ONLY 06/02/2017 DELIVERY ONLY DELIVERY ONLY 07/15/2021 [facility] COLONOSCOPY GEN ANES Colonoscopy and endoscopy D&C (INCOMPLETE AB), ANY TRIMESTER LAPAROSCOPY SURG CHOLECYSTECTOMY 09/19/2012 LAPS SURG CHOLECYSTECTOMY W/CHOLANGIOGRAPHY `09-19-12 MIRENA 05/13/2022 8 yr SALPINGECTOMY Bilateral 07/15/2021 THORACOTOMY, CYST REMOVAL 2006, 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, 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 TONSILLECTOMY PRIMARY/SECONDARY <AGE 12 Tonsillectomy w/ adenoids Current Outpatient Medications Medication Sig Dispense Refill fluvoxaMINE (LUVOX) 50 mg tablet Take 1.5 tablets by mouth daily at bedtime. 45 tablet 0 nortriptyline (PAMELOR) 50 mg capsule Take 1 capsule by mouth daily at bedtime. 60 capsule 0 prazosin (MINIPRESS) 1 mg cap Take 1 capsule by mouth daily at bedtime. Take with 2 mg dose. 90 capsule 0 prazosin (MINIPRESS) 2 mg cap Take 1 capsule by mouth daily at bedtime. Take with 1 mg dose. 90 capsule 0 miSOPROStol (CYTOTEC) 200 mcg tablet Insert 2 tablets vaginally night prior to EMB and 2 tablets morning of procedure. Each dose should be in vagina for 6-8 hours. 4 tablet 0 albuterol HFA (PROVENTIL HFA, VENTOLIN HFA) 90 mcg/actuation inhaler Inhale 2 Puffs as instructed every 4 hours as needed for wheezing/shortness of breath. 6.7 g 0 EPINEPHrine (EPIPEN) 0.3 mg/0.3 mL auto-injector Inject 0.3 mL intramuscularly as needed (For allergic reaction). Use as directed 2 Each 1 No current facility-administered medications for this visit. ROS: See HPI PFSH: See HPI VITAL SIGNS: There were no vitals filed for this visit. MENTAL STATUS EXAM: CONSTITUTIONAL: Casually dressed ORIENTATION: Person, Place, Time and Situation MEMORY: Recent intact, Remote intact, Immediate intact CONCENTRATION: Normal MOOD: euthymic AFFECT: Full and appropriate to topic SPEECH : Clear & distinct LANGUAGE : Normal ASSOCIATIONS: Intact THOUGHT PROCESS : Logical, Coherent, and Rational PROGRESSION : There was no evidence of disturbance in thought perception or progression. FUND OF KNOWLEDGE : Appropriate and Adequate SUICIDE: None HOMICIDE: None DATA REVIEWED: Psychiatric scales, Electronic medical record, and Weapons Engineer notes DIAGNOSIS: OCD PTSD, chronic - nightmares due trauma Borderline personality disorder - accepting of this diagnosis Marijuana use Nicotine use GAF: -70-61 Some mild symptoms or some difficulty in social, occupational, or school functioning, but generally functioning pretty well. TREATMENT PLAN: 1. Increase Luvox to 100 mg and discontinue Nortriptyline due to lack of efficacy. 2. Continue Minipress at the same dose to address trauma related nightmares. 3. Start individual psychotherapy with Dr. López. MEDICATION CHANGES: - Increase Luvox to 100 mg. - Stop Nortriptyline Follow Up: 4 weeks I spent a total of 34 minutes on the date of the service which included preparing to see the patient, [id number] patient care, completing clinical documentation, obtaining and/or reviewing separately obtained history, counseling and educating the patient/family/caregiver, ordering medications, tests, or procedures, communicating with other HCPs (not separately reported), independently interpreting results (not separately reported), and communicating results to the patient/family/caregiver. ADD ON PSYCHOTHERAPY CODE : No SIGNATURE: Samaria Singh APRN.CNP PATIENT NAME: Jessica Prieto DATE: July 28, 2023 TIME: 12:56 PM documented in this encounter [facility] 07-14-2023 Miscellaneous Notes Scheduled for a sooner appointment. Concerns discussed and addressed in the appointment setting yesterday. Spoke to patient, states she was having a very difficult time yesterday, states she was unable to control her emotions and anxiety without any ways that would calm her down. She knows having 5 children is a lot to handle regardless. Does feel much better today but wonders if this is related to her menstrual cycle as she is due to start soon. Patient states her sleeping habits are not great either, she is having difficulty falling asleep and staying asleep and is still experiencing nightmares. Patient called said she thinks she is having side effects of medication Please advise documented in this encounter [facility] 07-13-2023 Note HNO ID: [id number] Author: Samaria Singh APRN.CNP Service: ? Author Type: Nurse Practitioner Type: Progress Notes Filed: 07/13/2023 10:16 AM Note Text: FOLLOW UP - PSYCHIATRIC PROGRESS NOTE Visit Type:Virtual Visit utilizing two-way audio and video for at least a portion of the visit. Consent for virtual visit obtained verbally. Confidentiality limitations with virtual visits reviewed with the patient and guardian, if present, who have accepted the risk verbally prior to proceeding with encounter. I have communicated my name and active licensure. The patient's identity and physical location were verified at the time of this visit. Either the patient or their legal senior customer service representative has been informed of the risks and benefits of -- and alternatives to -- treatment through a remote evaluation and consents to proceed with the evaluation remotely. Reason for Visit: Outpatient follow-up and safety monitoring of previously prescribed psychiatric medication, psychotherapy or other treatment CC: Requested to schedule this appointment sooner due to concerns with medications. HPI: Treatment plan from last appointment on 06/23/2023: 1. Gradually cross taper from Nortriptyline to Luvox to address OCD symptoms. 2. Continue Minipress at the same dose. Consider a slight increase if patient continues to struggle with trauma related nightmares after anxiety is better managed with Luvox. Today Jessica shares that she called on the 15th as she was struggling with a severe panic attack. Began as a spiral of catastrophic thinking. Worries about the future and the safety of her 5 children. Has been thinking about various theories to resolve things like Climate change and the current political atmosphere. She has been trying to rationalize as a way to prevent herself from getting overwhelmed. Able to verbalize that she is spending lot of time reading things that are triggering. She has noticed some anxiety and difficulty falling asleep. She is experiencing nightmares. She is struggling with rumination but her intrusive thoughts related to the safety of her children have improved. Notices a significant worsening of her anxiety and OCD symptoms prior to her menstrual cycle. She called when she was in the luteal sleep. She continues to take Nortriptyline 100 mg at bedtime. Has been tolerating the Luvox better and taking 50 mg currently. Notices a significant worsening of her anxiety and OCD symptoms prior to her menstrual cycle. She called when she was in the luteal phase of her cycle and was extremely distressed by the intrusive thoughts. Risks and benefits of the medication, including any black box warnings, were discussed with the patient. Interval Progress: Same PATIENT DATA: Generalized Anxiety Disorder Scale (MITCHELL-7) MITCHELL - 7 SCORES 04/22/2023 05/20/2023 06/23/2023 MITCHELL-7 Score 14 21 21 (0-4) minimal anxiety, (5-9) mild anxiety, (10-14) moderate anxiety, (15-21) severe anxiety Patient Health Questionnaire (PHQ-9) PHQ-9 05/20/2023 06/23/2023 07/13/2023 Score 8 7 15 (0-4) minimal depression, (5-9) mild depression, (10-14) moderate depression, (15-19) moderately severe depression, (20-27) severe depression PROMIS Global Health PROMIS Global Health - (T-Scores - the mean of general population = 50. 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 PONV (postoperative nausea and vomiting) depression Thymoma THYMOLIPOMA Thyroid disease PAST SURGICAL HISTORY Procedure Laterality Date ADENOIDECTOMY PRIMARY Adenoidectomy w/ tonsils DELIVERY ONLY , low transverse DELIVERY ONLY , low transverse DELIVERY ONLY 06/02/2017 DELIVERY ONLY DELIVERY ONLY 07/15/2021 [facility] COLONOSCOPY GEN ANES Colonoscopy and endoscopy DANDC (INCOMPLETE AB), ANY TRIMESTER LAPAROSCOPY SURG CHOLECYSTECTOMY 09/19/2012 LAPS SURG CHOLECYSTECTOMY W/CHOLANGIOGRAPHY `09-19-12 MIRENA 05/13/2022 8 yr SALPINGECTOMY Bilateral 07/15/2021 THORACOTOMY, CYST REMOVAL 2006, 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 60 capsule 0 fluvoxaMINE (LUVOX) 50 mg tablet Take 0.5 tablets by mouth daily at bedtime for 7 days, THEN 1 tablet daily at bedtime. 34 tablet 0 prazosi (more content not included)... [facility] 07-13-2023 Instructions RajSamaria paz APRN.CNP - 07/13/2023 10:16 AM EST Salvador Lopez, It was good to talk with you today. Below is a summary of the plan that we discussed during your appointment for reference. Of course, if you have any questions or concerns do not hesitate to reach out to me via a message or call. Manuel, Samaria Singh APRN.CNP PLAN AND FOLLOW UP: YOU SHOULD SEEK IMMEDIATE MEDICAL ATTENTION AT THE NEAREST EMERGENCY DEPARTMENT OR BY CALLING 911, IF ANY OF THE FOLLOWING OCCURS: - New or worsening thoughts of harming yourself (suicidal thoughts) or others (homicidal thoughts) - Not feeling safe at home or worrying about your ability to remain safe at home If you are having thoughts of harming yourself or others, then you can: - Call the National Suicide Hotline at 988 - Text 4HOPE to 988 Medications: Starting tonight: - Nortriptyline 50 mg - take 1 capsule at bedtime. - Fluvoxamine 50 mg - take 1 and half tablet at bedtime. Other: Call and schedule an appointment for individual psychotherapy with Dr. Jackie López. Next appointment: On the as scheduled. -- You may call the department appointment line at [phone] to schedule your appointment. -- Please call my nurse Rosa Elena at [phone] or send me a message in [employer] with any questions or concerns between appointments. documented in this encounter [facility] 07-13-2023 History of Presen t illness Narrative FOLLOW UP - PSYCHIATRIC PROGRESS NOTE Visit Type:Virtual Visit utilizing two-way audio and video for at least a portion of the visit. Consent for virtual visit obtained verbally. Confidentiality limitations with virtual visits reviewed with the patient and guardian, if present, who have accepted the risk verbally prior to proceeding with encounter. I have communicated my name and active licensure. The patient's identity and physical location were verified at the time of this visit. Either the patient or their legal senior customer service representative has been informed of the risks and benefits of -- and alternatives to -- treatment through a remote evaluation and consents to proceed with the evaluation remotely. Reason for Visit: Outpatient follow-up and safety monitoring of previously prescribed psychiatric medication, psychotherapy or other treatment CC: Requested to schedule this appointment sooner due to concerns with medications. HPI: Treatment plan from last appointment on 06/23/2023: 1. Gradually cross taper from Nortriptyline to Luvox to address OCD symptoms. 2. Continue Minipress at the same dose. Consider a slight increase if patient continues to struggle with trauma related nightmares after anxiety is better managed with Luvox. Today Jessica shares that she called on the as she was struggling with a severe panic attack. Began as a spiral of catastrophic thinking. Worries about the future and the safety of her 5 children. Has been thinking about various theories to resolve things like Climate change and the current political atmosphere. She has been trying to rationalize as a way to prevent herself from getting overwhelmed. Able to verbalize that she is spending lot of time reading things that are triggering. She has noticed some anxiety and difficulty falling asleep. She is experiencing nightmares. She is struggling with rumination but her intrusive thoughts related to the safety of her children have improved. Notices a significant worsening of her anxiety and OCD symptoms prior to her menstrual cycle. She called when she was in the luteal sleep. She continues to take Nortriptyline 100 mg at bedtime. Has been tolerating the Luvox better and taking 50 mg currently. Notices a significant worsening of her anxiety and OCD symptoms prior to her menstrual cycle. She called when she was in the luteal phase of her cycle and was extremely distressed by the intrusive thoughts. Risks and benefits of the medication, including any black box warnings, were discussed with the patient. Interval Progress: Same PATIENT DATA: Generalized Anxiety Disorder Scale (MITCHELL-7) MITCHELL - 7 SCORES 04/22/2023 05/20/2023 06/23/2023 MITCHELL-7 Score 14 21 21 (0-4) minimal anxiety, (5-9) mild anxiety, (10-14) moderate anxiety, (15-21) severe anxiety Patient Health Questionnaire (PHQ-9) PHQ-9 05/20/2023 06/23/2023 07/13/2023 Score 8 7 15 (0-4) minimal depression, (5-9) mild depression, (10-14) moderate depression, (15-19) moderately severe depression, (20-27) severe depression PROMIS Global Health PROMIS Global Health - (T-Scores - the mean of general population = 50. 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 PONV (postoperative nausea and vomiting) depression Thymoma THYMOLIPOMA Thyroid disease PAST SURGICAL HISTORY Procedure Laterality Date ADENOIDECTOMY PRIMARY <AGE 12 Adenoidectomy w/ tonsils DELIVERY ONLY , low transverse DELIVERY ONLY , low transverse DELIVERY ONLY 06/02/2017 DELIVERY ONLY DELIVERY ONLY 07/15/2021 [facility] COLONOSCOPY GEN ANES Colonoscopy and endoscopy D&C (INCOMPLETE AB), ANY TRIMESTER LAPAROSCOPY SURG CHOLECYSTECTOMY 09/19/2012 LAPS SURG CHOLECYSTECTOMY W/CHOLANGIOGRAPHY `09-19-12 MIRENA 05/13/2022 8 yr SALPINGECTOMY Bilateral 07/15/2021 THORACOTOMY, CYST REMOVAL 2006, 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, 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 60 capsule 0 fluvoxaMINE (LUVOX) 50 mg tablet Take 0.5 tablets by mouth daily at bedtime for 7 days, THEN 1 tablet daily at bedtime. 34 tablet 0 prazosin (MINIPRESS) 1 mg cap Take 1 capsule by mouth daily at bedtime. Take with 2 mg dose. 90 capsule 0 prazosin (MINIPRESS) 2 mg cap Take 1 capsule by mouth daily at bedtime. Take with 1 mg dose. 90 capsule 0 miSOPROStol (CYTOTEC) 200 mcg tablet Insert 2 tablets vaginally night prior to EMB and 2 tablets morning of procedure. Each dose should be in vagina for 6-8 hours. 4 tablet 0 albuterol HFA (PROVENTIL HFA, VENTOLIN HFA) 90 mcg/actuation inhaler Inhale 2 Puffs as instructed every 4 hours as needed for wheezing/shortness of breath. 6.7 g 0 EPINEPHrine (EPIPEN) 0.3 mg/0.3 mL auto-injector Inject 0.3 mL intramuscularly as needed (For allergic reaction). Use as directed 2 Each 1 No current facility-administered medications for this visit. ROS: GENERAL: Negative for malaise, significant weight loss and fever. HEENT: No changes in hearing or vision, no nose bleeds or other nasal problems. RESPIRATORY: Negative for cough, wheezing and shortness of breath. CARDIOVASCULAR: Negative for chest pain, leg swelling and palpitations. GI: Negative for abdominal discomfort, blood in stools or black stools. : Negative for dysuria, frequency and incontinence. MUSCULOSKELETAL: Negative for joint pain or swelling, back pain, and muscle pain. SKIN: Negative for lesions, rash, and itching. HEMATOLOGY/LYMPHOLOGY Negative for prolonged bleeding, bruising easily, and swollen nodes. ENDOCRINE: Negative for cold or heat intolerance, polyuria, polydipsia and goiter. NEURO: Negative for headaches, syncope, seizures and paralysis. PFSH: See HPI VITAL SIGNS: There were no vitals filed for this visit. MENTAL STATUS EXAM: CONSTITUTIONAL: Casually dressed ORIENTATION: Person, Place, Time and Situation MEMORY: Recent intact, Remote intact, Immediate intact CONCENTRATION: Normal MOOD: anxious AFFECT: Full and appropriate to topic SPEECH : Clear & distinct LANGUAGE : Normal ASSOCIATIONS: Intact THOUGHT PROCESS : Logical, Coherent, and Rational PROGRESSION : There was no evidence of disturbance in thought perception or progression. FUND OF KNOWLEDGE : Appropriate and Adequate SUICIDE: None HOMICIDE: None DATA REVIEWED: Psychiatric scales, Phone, and Electronic medical record DIAGNOSIS: PRIMARY: OCD Secondary : Chronic PTSD Other : Borderline Personality Disorder GAF: -60-51 Moderate symptoms or moderate difficulty in social, occupational or school functioning. TREATMENT PLAN: 1. Increase Luvox dose to 75 mg at bedtime and reduce Nortriptyline dose to 50 mg. 2. Continue Minipress at the same dose. 3. Schedule an appointment for individual psychotherapy with Dr. López. MEDICATION CHANGES: - Luvox dose increased and Nortriptyline decreased. Follow Up: On the as scheduled. I spent a total of 36 minutes on the date of the service which included preparing to see the patient, [id number] patient care, completing clinical documentation, obtaining and/or reviewing separately obtained history, counseling and educating the patient/family/caregiver, ordering medications, tests, or procedures, communicating with other HCPs (not separately reported), independently interpreting results (not separately reported), and communicating results to the patient/family/caregiver. ADD ON PSYCHOTHERAPY CODE : No SIGNATURE: Samaria Singh APRN.CNP PATIENT NAME: Jessica Prieto DATE: July 13, 2023 TIME: 9:35 AM documented in this encounter [facility] 06-29-2023 Note HNO ID: [id number] Author: Annabelle Gonzalez APRN.CNP Service: ? Author Type: Nurse Practitioner Type: Progress Notes Filed: 06/29/2023 8:28 PM Note Text: Virtual Visit: This is a virtual visit using [employer] Video Visit. It required patient-provider interaction for the medical decision making as documented below. I have communicated my name and active licensure. The patient?s identity and physical location were verified at the time of this visit. Either the patient or their legal senior customer service representative has been informed of the risks and benefits of -- and alternatives to -- treatment through a remote evaluation and consents to proceed with the evaluation remotely. Jessica presents to discuss diagnostic testing results. 09/04/2022 Pelvic US [facility] - suspected adenomyosis 09/05/2022 CT abd/pelvis - normal pelvic organs 09/07/2022 [facility] pelvic US with 18 mm left ovarian cyst Normal appearing anteverted uterus that measures 95 mm x 46 mm x 56 mm. The central endometrium complex measures 11.7 mm in combined thickness. No abnormal blood flow to suggest a polyp or focal endometrial pathology is observed within the endometrial complex. The contour of the endometrial cavity was normal on 3-D imaging. 3D rendering of the uterus confirms the proper location of the IUD within the endometrial cavity. The right ovary is normal appearing. There is a small, likely hemorrhagic left ovarian cyst present measuring 2.4 cm in size. There is no free fluid visualized in the peritoneal cavity. Mirena IUD removed 09/11/2022 due to pelvic pain 06/22/2023 Endometrium, biopsy - Benign proliferative endometrium with focal stromal breakdown. - Benign endocervix and ectocervix. 10/2020 Pap normal Side effects so: Mirena - BV, PID; Paragard - malposition. Hormones cause n/v. SSRI's cause numb feeling. NSAIDS interact with other medications. Smokes 1 ppd. 09/01/[address] Vallejo to discuss hysterectomy or ablation. ASSESSMENT/PLAN: 1. Excessive or frequent menstruation - ICD9: 626.2, ICD10: N92.0 - all diagnostic test result reviewed with Jessica as above. She would like to discuss endometrial ablation or hysterectomy with Dr Vallejo 09/01/2023. Follow-up as needed and as scheduled. Annabelle Gonzalez APRN.BOROUGH COORDINATOR Signature: Annabelle Gonzalez APRN.BOROUGH COORDINATOR Date: June 28, 2023 Time: 8:06 PM Medical Decision Making: Problems: Moderate: 1+ chronic illnesses with change Data: Unique source(s) for external note(s) reviewed: 1 Unique test result(s) reviewed: 3+ Medical Decision Making Level: 4 - Moderate [facility] 06-29-2023 History of Presen t illness Narrative Virtual Visit: This is a virtual visit using [employer] Zoom Video Visit. It required patient-provider interaction for the medical decision making as documented below. I have communicated my name and active licensure. The patient s identity and physical location were verified at the time of this visit. Either the patient or their legal senior customer service representative has been informed of the risks and benefits of -- and alternatives to -- treatment through a remote evaluation and consents to proceed with the evaluation remotely. Jessica presents to discuss diagnostic testing results. 09/04/2022 Pelvic US [facility] - suspected adenomyosis 09/05/2022 CT abd/pelvis - normal pelvic organs 09/07/2022 [facility] pelvic US with 18 mm left ovarian cyst Normal appearing anteverted uterus that measures 95 mm x 46 mm x 56 mm. The central endometrium complex measures 11.7 mm in combined thickness. No abnormal blood flow to suggest a polyp or focal endometrial pathology is observed within the endometrial complex. The contour of the endometrial cavity was normal on 3-D imaging. 3D rendering of the uterus confirms the proper location of the IUD within the endometrial cavity. The right ovary is normal appearing. There is a small, likely hemorrhagic left ovarian cyst present measuring 2.4 cm in size. There is no free fluid visualized in the peritoneal cavity. Mirena IUD removed 09/11/2022 due to pelvic pain 06/22/2023 Endometrium, biopsy - Benign proliferative endometrium with focal stromal breakdown. - Benign endocervix and ectocervix. 10/2020 Pap normal Side effects so: Mirena - BV, PID; Paragard - malposition. Hormones cause n/v. SSRI's cause numb feeling. NSAIDS interact with other medications. Smokes 1 ppd. 09/01/[address] Vallejo to discuss hysterectomy or ablation. ASSESSMENT/PLAN: 1. Excessive or frequent menstruation - ICD9: 626.2, ICD10: N92.0 - all diagnostic test result reviewed with Jessica as above. She would like to discuss endometrial ablation or hysterectomy with Dr Vallejo 09/01/2023. Follow-up as needed and as scheduled. Annabelle Gonzalez APRN.GERRI Signature: Annabelle Gonzalez APRN.CNP Date: June 28, 2023 Time: 8:06 PM Medical Decision Making: Problems: Moderate: 1+ chronic illnesses with change Data: Unique source(s) for external note(s) reviewed: 1 Unique test result(s) reviewed: 3+ Medical Decision Making Level: 4 - Moderate documented in this encounter [facility] 06-23-2023 Note HNO ID: [id number] Author: Samaria Singh APRN.GERRI Service: ? Author Type: Nurse Practitioner Type: Progress Notes Filed: 06/23/2023 2:07 PM Note Text: FOLLOW UP - PSYCHIATRIC PROGRESS NOTE Visit Type:Virtual Visit utilizing two-way audio and video for at least a portion of the visit. Consent for virtual visit obtained verbally. Confidentiality limitations with virtual visits reviewed with the patient and guardian, if present, who have accepted the risk verbally prior to proceeding with encounter. I have communicated my name and active licensure. The patient's identity and physical location were verified at the time of this visit. Either the patient or their legal senior customer service representative has been informed of the risks and benefits of -- and alternatives to -- treatment through a remote evaluation and consents to proceed with the evaluation remotely. Reason for Visit: Outpatient follow-up and safety monitoring of previously prescribed psychiatric medication, psychotherapy or other treatment CC: Follow up regarding anxiety. HPI: Treatment plan from last visit on 05/20/2023: Continue Nortriptyline and Prazosin at the same dose. Discontinue Propranolol due to lack of efficacy. Follow up in 4 weeks. Today Jessica shares that I am okay . Shares that things have been the same. Right before her period, she has been struggling with more anxiety and general discomfort. This lasts for a week prior to her period. She has a lot of anxiety when she has to leave her house. Interacting with others is difficult. General sense of dread . Anxiety is much worse when it comes to her driving. She finds herself checking frequently. Worries about her children falling out of the window of the vehicle. She is more comfortable if she is not the one that has to do the driving. Discussed different treatment options to address her OCD related thoughts especially the intrusive catastrophic thoughts. Nortriptyline has not helped with anxiety. She has a hard time taking her morning dose of Nortriptyline. The combination of Nortriptyline and Minipress has helped with her sleep and trauma nightmares. She continues to experience nightmares 3 times a week instead of daily. Risks and benefits of the medication, including any black box warnings, were discussed with the patient. Interval Progress: Same PATIENT DATA: Generalized Anxiety Disorder Scale (MITCHELL-7) MITCHELL - 7 SCORES 04/22/2023 05/20/2023 06/23/2023 MITCHELL-7 Score 14 21 21 (0-4) minimal anxiety, (5-9) mild anxiety, (10-14) moderate anxiety, (15-21) severe anxiety Patient Health Questionnaire (PHQ-9) PHQ-9 04/22/2023 05/20/2023 06/23/2023 Score 4 8 7 (0-4) minimal depression, (5-9) mild depression, (10-14) moderate depression, (15-19) moderately severe depression, (20-27) severe depression PROMIS Global Health PROMIS Global Health - (T-Scores - the mean of general population = 50. 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 PONV (postoperative nausea and vomiting) depression Thymoma THYMOLIPOMA Thyroid disease PAST SURGICAL HISTORY Procedure Laterality Date ADENOIDECTOMY PRIMARY Adenoidectomy w/ tonsils DELIVERY ONLY , low transverse DELIVERY ONLY , low transverse DELIVERY ONLY 06/02/2017 DELIVERY ONLY DELIVERY ONLY 07/15/2021 [facility] COLONOSCOPY GEN ANES Colonoscopy and endoscopy DANDC (INCOMPLETE AB), ANY TRIMESTER LAPAROSCOPY SURG CHOLECYSTECTOMY 09/19/2012 LAPS SURG CHOLECYSTECTOMY W/CHOLANGIOGRAPHY `09-19-12 MIRENA 05/13/2022 8 yr SALPINGECTOMY Bilateral 07/15/2021 THORACOTOMY, CYST REMOVAL 2006, 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 120 capsule 0 prazosin (MINIPRESS) 1 mg cap Take 1 capsule by mouth daily at bedtime. Take with 2 mg dose. 90 capsule 0 prazosin (MINIPRESS) 2 mg cap Take 1 capsule by mouth daily at bedtime. Take with 1 mg dose. 90 capsule 0 miSOPROStol (CYTOTEC) 200 mcg tablet Insert 2 tablets vaginally night prior to EMB and 2 tablets morning of procedure. Each dose should be in vagina for 6-8 hours. 4 tablet 0 albuterol HFA (PROVENTIL HFA, VENTOLIN HFA) 90 mcg/a (more content not included)... [facility] 06-23-2023 Instructions Samaria Singh, REJECT OPENER.[facility] - 06/23/2023 2:02 PM EDT Salvador Jessica, It was good to talk with you today. Below is a summary of the plan that we discussed during your appointment for reference. Of course, if you have any questions or concerns do not hesitate to reach out to me via a message or call. Samaria Jackson APRN.CNP PLAN AND FOLLOW UP: YOU SHOULD SEEK IMMEDIATE MEDICAL ATTENTION AT THE NEAREST EMERGENCY DEPARTMENT OR BY CALLING 911, IF ANY OF THE FOLLOWING OCCURS: - New or worsening thoughts of harming yourself (suicidal thoughts) or others (homicidal thoughts) - Not feeling safe at home or worrying about your ability to remain safe at home If you are having thoughts of harming yourself or others, then you can: - Call the National Suicide Hotline at 358 - Text 4HOPE to 198 MEDICATION CHANGES: - Continue prazosin at the same dose. Cross taper plan Week 1: - Nortriptyline 50 mg - take 2 capsules at bedtime. - Fluvoxamine 50 mg - take 1/2 tablet at bedtime. Week 2: - Nortriptyline 50 mg - take 1 capsule at bedtime. - Fluvoxamine 50 mg - take 1 tablet at bedtime. Next appointment: --Schedule in 4 weeks or sooner if needed -- You may call the department appointment line at [phone] to schedule your appointment. -- Please call my nurse Rosa Elena at [phone] or send me a message in [employer] with any questions or concerns between appointments. documented in this encounter [facility] 06-23-2023 History of Presen t illness Narrative FOLLOW UP - PSYCHIATRIC PROGRESS NOTE Visit Type:Virtual Visit utilizing two-way audio and video for at least a portion of the visit. Consent for virtual visit obtained verbally. Confidentiality limitations with virtual visits reviewed with the patient and guardian, if present, who have accepted the risk verbally prior to proceeding with encounter. I have communicated my name and active licensure. The patient's identity and physical location were verified at the time of this visit. Either the patient or their legal senior customer service representative has been informed of the risks and benefits of -- and alternatives to -- treatment through a remote evaluation and consents to proceed with the evaluation remotely. Reason for Visit: Outpatient follow-up and safety monitoring of previously prescribed psychiatric medication, psychotherapy or other treatment CC: Follow up regarding anxiety. HPI: Treatment plan from last visit on 05/20/2023: Continue Nortriptyline and Prazosin at the same dose. Discontinue Propranolol due to lack of efficacy. Follow up in 4 weeks. Today Jessica shares that I am okay . Shares that things have been the same. Right before her period, she has been struggling with more anxiety and general discomfort. This lasts for a week prior to her period. She has a lot of anxiety when she has to leave her house. Interacting with others is difficult. General sense of dread . Anxiety is much worse when it comes to her driving. She finds herself checking frequently. Worries about her children falling out of the window of the vehicle. She is more comfortable if she is not the one that has to do the driving. Discussed different treatment options to address her OCD related thoughts especially the intrusive catastrophic thoughts. Nortriptyline has not helped with anxiety. She has a hard time taking her morning dose of Nortriptyline. The combination of Nortriptyline and Minipress has helped with her sleep and trauma nightmares. She continues to experience nightmares 3 times a week instead of daily. Risks and benefits of the medication, including any black box warnings, were discussed with the patient. Interval Progress: Same PATIENT DATA: Generalized Anxiety Disorder Scale (MITCHELL-7) MITCHELL - 7 SCORES 04/22/2023 05/20/2023 06/23/2023 MITCHELL-7 Score 14 21 21 (0-4) minimal anxiety, (5-9) mild anxiety, (10-14) moderate anxiety, (15-21) severe anxiety Patient Health Questionnaire (PHQ-9) PHQ-9 04/22/2023 05/20/2023 06/23/2023 Score 4 8 7 (0-4) minimal depression, (5-9) mild depression, (10-14) moderate depression, (15-19) moderately severe depression, (20-27) severe depression PROMIS Global Health PROMIS Global Health - (T-Scores - the mean of general population = 50. 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 PONV (postoperative nausea and vomiting) depression Thymoma THYMOLIPOMA Thyroid disease PAST SURGICAL HISTORY Procedure Laterality Date ADENOIDECTOMY PRIMARY <AGE 12 Adenoidectomy w/ tonsils DELIVERY ONLY , low transverse DELIVERY ONLY , low transverse DELIVERY ONLY 06/02/2017 DELIVERY ONLY DELIVERY ONLY 07/15/2021 LTCS COLONOSCOPY GEN ANES Colonoscopy and endoscopy D&C (INCOMPLETE AB), ANY TRIMESTER LAPAROSCOPY SURG CHOLECYSTECTOMY 09/19/2012 LAPS SURG CHOLECYSTECTOMY W/CHOLANGIOGRAPHY `09-19-12 MIRENA 05/13/2022 8 yr SALPINGECTOMY Bilateral 07/15/2021 THORACOTOMY, CYST REMOVAL 2006, 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, 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 120 capsule 0 prazosin (MINIPRESS) 1 mg cap Take 1 capsule by mouth daily at bedtime. Take with 2 mg dose. 90 capsule 0 prazosin (MINIPRESS) 2 mg cap Take 1 capsule by mouth daily at bedtime. Take with 1 mg dose. 90 capsule 0 miSOPROStol (CYTOTEC) 200 mcg tablet Insert 2 tablets vaginally night prior to EMB and 2 tablets morning of procedure. Each dose should be in vagina for 6-8 hours. 4 tablet 0 albuterol HFA (PROVENTIL HFA, VENTOLIN HFA) 90 mcg/actuation inhaler Inhale 2 Puffs as instructed every 4 hours as needed for wheezing/shortness of breath. 6.7 g 0 EPINEPHrine (EPIPEN) 0.3 mg/0.3 mL auto-injector Inject 0.3 mL intramuscularly as needed (For allergic reaction). Use as directed 2 Each 1 No current facility-administered medications for this visit. ROS: GENERAL: Negative for malaise, significant weight loss and fever. HEENT: No changes in hearing or vision, no nose bleeds or other nasal problems. RESPIRATORY: Negative for cough, wheezing and shortness of breath. CARDIOVASCULAR: Negative for chest pain, leg swelling and palpitations. GI: Negative for abdominal discomfort, blood in stools or black stools. : Negative for dysuria, frequency and incontinence. MUSCULOSKELETAL: Negative for joint pain or swelling, back pain, and muscle pain. SKIN: Negative for lesions, rash, and itching. HEMATOLOGY/LYMPHOLOGY Negative for prolonged bleeding, bruising easily, and swollen nodes. ENDOCRINE: Negative for cold or heat intolerance, polyuria, polydipsia and goiter. NEURO: Negative for headaches, syncope, seizures and paralysis. PFSH: See HPI VITAL SIGNS: There were no vitals filed for this visit. MENTAL STATUS EXAM: CONSTITUTIONAL: Casually dressed ORIENTATION: Person, Place, Time and Situation MEMORY: Recent intact, Remote intact, Immediate intact CONCENTRATION: Normal MOOD: Anxious AFFECT: Full and appropriate to topic SPEECH : Clear & distinct LANGUAGE : Normal ASSOCIATIONS: Intact THOUGHT PROCESS : Logical, Coherent, and Rational PROGRESSION : There was no evidence of disturbance in thought perception or progression. FUND OF KNOWLEDGE : Appropriate and Adequate SUICIDE: None HOMICIDE: None DATA REVIEWED: Psychiatric scales, Electronic medical record, and Weapons Engineer notes DIAGNOSIS: OCD PTSD Borderline Personality Disorder Marijuana use Nicotine use GAF: -60-51 Moderate symptoms or moderate difficulty in social, occupational or school functioning. TREATMENT PLAN: 1. Gradually cross taper from Nortriptyline to Luvox to address OCD symptoms. 2. Continue Minipress at the same dose. Consider a slight increase if patient continues to struggle with trauma related nightmares after anxiety is better managed with Luvox. MEDICATION CHANGES: - Continue prazosin at the same dose. Cross taper plan Week 1: - Nortriptyline 50 mg - take 2 capsules at bedtime. - Fluvoxamine 50 mg - take 1/2 tablet at bedtime. Week 2: - Nortriptyline 50 mg - take 1 capsule at bedtime. - Fluvoxamine 50 mg - take 1 tablet at bedtime. Follow Up: 4 weeks I spent a total of 28 minutes on the date of the service which included preparing to see the patient, [id number] patient care, completing clinical documentation, obtaining and/or reviewing separately obtained history, counseling and educating the patient/family/caregiver, ordering medications, tests, or procedures, independently interpreting results (not separately reported), and communicating results to the patient/family/caregiver. ADD ON PSYCHOTHERAPY CODE : No SIGNATURE: Samaria Singh APRN.CNP PATIENT NAME: Jessica Prieto DATE: June 23, 2023 TIME: 1:31 PM documented in this encounter [facility] 06-22-2023 Note HNO ID: [id number] Author: Annabelle Gonzalez APRN.CNP Service: ? Author Type: Nurse Practitioner Type: Progress Notes Filed: 06/22/2023 8:23 AM Note Text: Special Officer offered: Patient declines. Jessica is a 32 year old Female who presents today for an endometrial biopsy for heavy menses, dysmenorrhea. test: n/a, tubal ligation UNIVERSAL PROTOCOL / SAFETY CHECKLIST Procedure to be Performed: Endometrial biopsy Sign In: A Moment of CARE was completed. Personnel directly involved with the procedure wore the appropriate PPE (Personal Protective Equipment). Patient/Surrogate Stated/Verified: PATIENT VERIFIED(optional for EMERGENT procedures): Patient name, Date of , Relevant allergies, and The intended procedure Time Out Communication: Intended patient and procedure match the source documents. Consent documented and matches the intended procedure. Sign Out: SIGN OUT (optional for EMERGENT procedures): All specimen containers correctly labeled. All instruments, equipment, possible retained foreign bodies accounted for. Post-procedure follow-up management communicated and Plan of Care Visit completed when applicable. Annabelle Gonzalez APRN.CNP PROCEDURE: EXTERNAL GENITALIA: Normal in appearance without lesions VAGINA: Normal in appearance without lesions BIOPSY: Speculum placed into the vagina with excellent visualization of the cervix. Cervix cleaned with betadine. Anterior lip of cervix grasped with single toothed tenaculum. Uterus sounded to 9 cm. Pipelle inserted into the uterus without difficulty and endometrial biopsy obtained. Specimen labeled and sent to pathology. Hemostasis achieved. Procedure Summary: Patient tolerated procedure well. ASSESSMENT: abnormal uterine bleeding PLAN: Specimens labeled and sent to Pathology. Will notify patient of results in 1-2 weeks. Follow up in 1-2 weeks to discuss results. Post-procedure instructions reviewed and written material given to the patient. Annabelle Gonzalez APRN.GERRI [facility] 06-22-2023 Miscellaneous Notes Last: 05/20/2023 Next: 06/23/2023 documented in this encounter [facility] 06-22-2023 Instructions Carmelita Arrington LPN - 06/22/2023 7:20 AM EDT YOUR RECOVERY After your biopsy you may have: Vaginal bleeding (less than a normal menstrual period) Mild cramping Do NOT put anything in the vagina for 1 week after your endometrial biopsy. This includes: tampons douches and refraining from having sexual intercourse If you have any discomfort, you may take an over the counter pain medication (motrin, advil, ibuprofen, tylenol, etc). If this does not relieve your discomfort, contact the office. It is okay to wear a sanitary pad until the discharge and spotting stops. RISKS Although problems seldom occur with endometrial biopsies, there can be some complications. You may feel faint during and shortly after the procedure as well as have some bleeding after the procedure. There is also a risk of infection after the procedure. These complications are rare and can be easily treated. You should contact you doctor is you have any of the following: Heavy bleeding (more than your normal period) Bleeding with clots Severe abdominal pain Fever (more than 100.4F) Foul smelling vaginal discharge RESULTS We will have the results of your biopsy in 1-2 weeks. If you do not hear the results of your biopsy after 2 weeks, please contact the office for the results. If you have any additional questions or concerns please do not hesitate to contact the office. documented in this encounter [facility] 06-22-2023 History of Presen t illness Narrative Special Officer offered: Patient declines. Jessica is a 32 year old Female who presents today for an endometrial biopsy for heavy menses, dysmenorrhea. test: n/a, tubal ligation UNIVERSAL PROTOCOL / SAFETY CHECKLIST Procedure to be Performed: Endometrial biopsy Sign In: A Moment of CARE was completed. Personnel directly involved with the procedure wore the appropriate PPE (Personal Protective Equipment). Patient/Surrogate Stated/Verified: PATIENT VERIFIED(optional for EMERGENT procedures): Patient name, Date of , Relevant allergies, and The intended procedure Time Out Communication: Intended patient and procedure match the source documents. Consent documented and matches the intended procedure. Sign Out: SIGN OUT (optional for EMERGENT procedures): All specimen containers correctly labeled. All instruments, equipment, possible retained foreign bodies accounted for. Post-procedure follow-up management communicated and Plan of Care Visit completed when applicable. Annabelle Gonzalez APRN.CNP PROCEDURE: EXTERNAL GENITALIA: Normal in appearance without lesions VAGINA: Normal in appearance without lesions BIOPSY: Speculum placed into the vagina with excellent visualization of the cervix. Cervix cleaned with betadine. Anterior lip of cervix grasped with single toothed tenaculum. Uterus sounded to 9 cm. Pipelle inserted into the uterus without difficulty and endometrial biopsy obtained. Specimen labeled and sent to pathology. Hemostasis achieved. Procedure Summary: Patient tolerated procedure well. ASSESSMENT: abnormal uterine bleeding PLAN: Specimens labeled and sent to Pathology. Will notify patient of results in 1-2 weeks. Follow up in 1-2 weeks to discuss results. Post-procedure instructions reviewed and written material given to the patient. Annabelle Gonzalez APRN.CNP documented in this encounter [facility] 05-20-2023 Note HNO ID: [id number] Author: Samaria Singh APRN.CNP Service: ? Author Type: Nurse Practitioner Type: Progress Notes Filed: 05/26/2023 11:48 PM Note Text: PSYC FOLLOW UP - PSYCHIATRIC PROGRESS NOTE DIAGNOSIS: OCD PTSD Borderline Personality Disorder Marijuana use Nicotine use GAF: -60-51 Moderate symptoms or moderate difficulty in social, occupational or school functioning. TREATMENT PLAN: Continue Nortriptyline and Prazosin at the same dose. Discontinue Propranolol due to lack of efficacy. Follow up in 4 weeks. The effects and side effects of all the medications were reviewed in detail with the patient. She is in agreement with the treatment plan and aware to reach out with any questions, concerns, or worsening of symptoms prior to the next appointment. CC: Follow up for psychiatric medication management. With the patient consent, visit was performed virtually. I have communicated my name and active licensure. The patient's identity and physical location were verified at the time of this visit. Either the patient or their legal senior customer service representative has been informed of the risks and benefits of -- and alternatives to -- treatment through a remote evaluation and consents to proceed with the evaluation remotely. HPI: Jessica Prieto is a 32 year old Female with a history of OCD, PTSD, Borderline Personality Disorder, Marijuana use and Nicotine use presenting today for follow-up. Date of last visit: 04/22/2023 Plan from last visit: Increase Nortriptyline to help with anxiety symptoms. Utilize propranolol thoughts to help with anxiety and panic symptoms. Continue Minipress at the same dose to help with nightmares. Follow up in 4 weeks. Today Jessica shares that she has had more stress in managing things for her school. Has hard a time to take the nortriptyline dose in the morning. It is easier for her to take the nortriptyline at bedtime. Shares that she tried the Propranolol but she was panicked about taking it with Prazosin. It was also not helpful when she took it to manage her anxiety symptoms. She has been noticing worsening of her anxiety symptoms during the luteal phase of her menstrual cycle. She uses caffeine, nicotine and marijuana. She smokes marijuana every evening as a way of coping with anxiety and getting her to sleep. Prazosin has been helping with her nightmares. Has been using marijuana since the age of 14. She has been struggling with more pelvic pain. Uses marijuana to manage her pain. She is getting her 15 year old ready for a trip. Wonders if her 4 year old has autism. They are trying to get her diagnosed and get the support she needs in school. Interval Progress: Slightly worse Risks and benefits of the medication, including any black box warnings, were discussed with the patient. Social History: See HPI PATIENT DATA: Generalized Anxiety Disorder Scale (MITCHELL-7) MITCHELL - 7 SCORES 01/07/2023 04/22/2023 05/20/2023 MITCHELL-7 Score 15 14 21 (0-4) minimal anxiety, (5-9) mild anxiety, (10-14) moderate anxiety, (15-21) severe anxiety Patient Health Questionnaire (PHQ-9) PHQ-9 01/07/2023 04/22/2023 05/20/2023 Score 7 4 8 (0-4) minimal depression, (5-9) mild depression, (10-14) moderate depression, (15-19) moderately severe depression, (20-27) severe depression ROS: See HPI General: Negative for fever, malaise, unintentional weight loss HEENT: Negative for recent changes in vision or hearing, no nasal drainage Respiratory: Negative for cough, wheezing or SOB Cardiovascular: Negative for chest pain GI: Negative for nausea, vomiting, change in bowel habits MUSCULOSKELETAL: Negative for acute back or joint pain SKIN: Negative for rash NEURO: Negative for headaches, seizures, focal neurological deficits All other systems negative. VITAL SIGNS: BP Temp Pulse Resp SpO2 MENTAL STATUS EXAMINATION: Appearance: Appropriately groomed, appears stated age Behavior: Appropriately engaged Psychomotor: No psychomotor agitation Cognition Level of Consciousness: Awake and alert. No fluctuation in wakefulness. Orientation: Grossly oriented Memory: Intact Attention/Concentration: Good Fund of Knowledge: Able to demonstrate an awareness of current events. Mood: Anxious Affect: Congruent to mood Speech/Language: Appropriate tone, prosody, sandy, phonetics, and syntax Thought Form: Goal-directed. No loosening of associations. Thought Content: No delusions noted or endorsed. Perceptual Disturbances: Did not appear to respond to auditory stimuli. Safety: Suicidal Ideations: No suicidal ideation, intent or plan. Homicidal Ideations: No homicidal ideation, intent or plan. Insight: Appropriate Judgment: Appropriate I spent a total of 28 minutes on the date of the service which included preparing to see the patient, [id number] patient care, completing clinical documentation, and counseling and educating the pat (more content not included)... [facility] 05-13-2023 Note HNO ID: [id number] Author: Annabelle Gonzalez APRN.BOROUGH COORDINATOR Service: ? Author Type: Nurse Practitioner Type: Progress Notes Filed: 05/13/2023 8:55 PM Note Text: Special Officer offered: Patient declines. Jessica Prieto is a 32 year old female who presents for problem visit pelvic pain for 1 year(s). HPI: Pelvic pain for at least one year. Suspected adenomyosis from last pelvic ultrasound findings 09/04/2022. Feels like pelvic floor muscles are not strong. When bladder is full, pain becomes sharp. Menses used to be 7-10 days and heavy but since last baby 2 years ago, menses now 4 days of heavier bleeding over 4 days. Menstrual cramping is severe. Menstrual bleeding have become heavier over past 2 years. Uses heat, Tylenol and rest. PMS symptoms are bizarre over past few months - symptoms subside with onset of bleeding. Beginning to have hair on face and acne. Vaginal discharge - large amount thick off-white to yellow for past 3 weeks.No buinging, itching, irritation. No odor. No recent antibiotic use. Has stress incontinence. - all CS. Largest baby 7 lbs 8 oz. Is sexually active with one male partner of 8 years. No concern for STD. Side effects to: Mirena IUD - BV, PID. Paragard - malposition. Hormones cause n/v., SSRIs cause numb feeling. Unable to take NSAIDS with other medications. Smokes 1ppd. OB History T4 L5 SAB0 IAB0 Ectopic0 Multiple0 Live Births5 Cage Supervisor History LMP: 04/07/2023, Having periods Age at Menarche: 13 Age at First : 16 Age at Menopause: Cage Supervisor History Comments: Sexual Activity: Yes; Male Contraception: Tubal Ligation, I.U.D. 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 PONV (postoperative nausea and vomiting) depression Thymoma THYMOLIPOMA Thyroid disease PAST SURGICAL HISTORY Procedure Laterality Date ADENOIDECTOMY PRIMARY Adenoidectomy w/ tonsils DELIVERY ONLY , low transverse DELIVERY ONLY , low transverse DELIVERY ONLY 06/02/2017 DELIVERY ONLY DELIVERY ONLY 07/15/2021 LTCS COLONOSCOPY GEN ANES Colonoscopy and endoscopy DANDC (INCOMPLETE AB), ANY TRIMESTER LAPAROSCOPY SURG CHOLECYSTECTOMY 09/19/2012 LAPS SURG CHOLECYSTECTOMY W/CHOLANGIOGRAPHY `09-19-12 MIRENA 05/13/2022 8 yr SALPINGECTOMY Bilateral 07/15/2021 THORACOTOMY, CYST REMOVAL 2006, 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, 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 TONSILLECTOMY PRIMARY/SECONDARY Tonsillectomy w/ adenoids FAMILY HISTORY Problem Relation Age of Onset Anxiety disorder Mother Post-Traumatic Stress Disorder Mother Alcohol/Drug Mother DRUG Psychiatry Mother PTSD,ANXIET/DEPRESSION Heart Mother Cancer Mother Melanoma Depression Sister Suicide / Suicidal Behaviors Sister Cancer Brother Melanoma Alcohol/Drug Maternal Aunt DRUG Thyroid Maternal Aunt Cancer Maternal Grandmother Heart Maternal Grandmother Alcohol/Drug Maternal Grandfather ETOH Cancer Maternal Grandfather LUNG Bipolar disorder Daughter ADD/ADHD Daughter Asthma Daughter No Known Problems Son No Known Problems Son Social History Tobacco Use Smoking status: Every Day Packs/day: 1.00 Years: 15.00 Additional pack years: 0.00 Total pack years: 15.00 Types: Cigarettes Smokeless tobacco: Never Vaping Use Vaping Use: Never used Substance Use Topics Alcohol use: No Drug use: Not Currently Current Outpatient Medications Medication Sig nortriptyline (PAMELOR) 10 mg capsule Take 1 capsule by mouth every morning for 7 days, THEN 2 capsules every morning. nortriptyline (PAMELOR) 50 mg capsule Take 2 capsules by mouth daily at bedtime. propranolol (INDERAL) 10 mg tablet Take 1 tablet by mouth three times daily as needed. prazosin (MINIPRESS) 1 mg cap Take 1 capsule by mouth daily at bedtime. Take with 2 mg dose. prazosin (MINIPRESS) 2 mg cap Take 1 capsule by mouth daily at bedtime. Take with 1 mg dose. albuterol HFA (PROVENTIL HFA, VENTOLIN HFA) 90 mcg/actuation inhaler Inhale 2 Puffs as instructed every 4 hours as needed for wheezing/shortness of breath. EPINEPHrine (EPIPEN) 0.3 mg/0.3 mL auto-injector Inject 0.3 mL intramuscularly as needed (For allergic reaction). Use as directed No current facility-administered medications for this visit. Allergies As of Date: 05/13/2023 Allergen Noted Reaction CATS 04/03/2013 Anaphylaxis GENTAMICIN 09/20/2012 Other: See Comments GRASS POLLEN 11/10/2013 Hives Fully Assessed 04/22/2023 REVIEW OF SYSTEMS Abdomen: C/o pain and bloating. See HPI. Bladder: No dysuria, gross hematuria, urinary frequency, urinary urgency (more content not included)... [facility] 05-13-2023 Instructions Annabelle Gonzalez APRN.BOROUGH COORDINATOR - 05/13/2023 11:37 AM EDT How To Perform Pelvic Floor (Kegel) Exercises These exercises help to strengthen the pelvic floor muscles and can help improve bladder control for women. 1. You should have been instructed in the office how to contract these muscles. At home, you can insert two fingers in the vagina and feel the contraction of these muscles as you squeeze. We call these muscles the pelvic floor because they help support the pelvic organs, especially during coughing and sneezing. Squeezing the pelvic floor while standing feels like you are lifting the area around the vagina, and will interrupt the stream of urine while voiding. Once you are certain which muscles to use, do not exercise while urinating. Make sure you are not bearing down, squeezing your buttocks, or straining abdominally: these are not the muscles to be exercised. You may wish to place hands on your buttock muscles to keep these muscles relaxed while performing the exercises. 2. Squeeze these muscles as hard as you can for a slow count of five, eventually working up to a slow count of ten. Rest for 15 seconds, and then start another contraction. At first. these muscles may feel sore, just as other muscles may feel sore after exercise. 3. You should perform 50 squeezes every day: make sure every squeeze count by iam as hard as you can! Many women try to do these exercises in sets of five or ten at a time. Remind yourself to do these exercises by starting them every time you are waiting at a red light, watching a television commercial, or on hold on the telephone. If you are having trouble concentrating, you may want to set aside a special time to perform sets of pelvic floor exercises. 4. In addition to the long, hard contractions you are doing try doing some quick flicks of these muscles throughout the day. 5. You should be seen in the office after starting these exercises to make sure you are performing the contraction correctly: you may have never known how to contract these muscles before starting pelvic floor exercises, and many patients mistakenly exercise the wrong muscles. If you still feel frustrated about which muscles to use ask us for help. There are physical therapy specialists who work with pelvic floor muscles. 6. Work hard! As with any exercise program, improvement often is related to how faithfully you adhere to your exercise program. Pelvic floor exercises do not have the side effects and expense associated with other treatments for urinary incontinence, and have been known to help with severe stress incontinence. It may take several months to see the full effect of your exercise program: if you are easily discouraged, see your doctor or doctor at regular visits to assess what progress you are making. Techniques to avoid urinary accidents: Empty your bladder regularly and prior to physical activity. Avoid activity that causes leakage, if possible. Avoid or moderate the intake of alcohol and caffeine products. Try to restrict fluids prior to planned activities. Wear appropriate protection. Prevent chronic coughing which can cause a loss of urinary control. Ways to prevent chronic coughing include treating asthma, restricting smoking, and removing allergy-causing agents from your environment. documented in this encounter [facility] 05-13-2023 History of Presen t illness Narrative Special Officer offered: Patient declines. Jessica Prieto is a 32 year old female who presents for problem visit pelvic pain for 1 year(s). HPI: Pelvic pain for at least one year. Suspected adenomyosis from last pelvic ultrasound findings 09/04/2022. Feels like pelvic floor muscles are not strong. When bladder is full, pain becomes sharp. Menses used to be 7-10 days and heavy but since last baby 2 years ago, menses now 4 days of heavier bleeding over 4 days. Menstrual cramping is severe. Menstrual bleeding have become heavier over past 2 years. Uses heat, Tylenol and rest. PMS symptoms are bizarre over past few months - symptoms subside with onset of bleeding. Beginning to have hair on face and acne. Vaginal discharge - large amount thick off-white to yellow for past 3 weeks.No buinging, itching, irritation. No odor. No recent antibiotic use. Has stress incontinence. - all CS. Largest baby 7 lbs 8 oz. Is sexually active with one male partner of 8 years. No concern for STD. Side effects to: Mirena IUD - BV, PID. Paragard - malposition. Hormones cause n/v., SSRIs cause numb feeling. Unable to take NSAIDS with other medications. Smokes 1ppd. OB History T4 L5 SAB0 IAB0 Ectopic0 Multiple0 Live Births5 Cage Supervisor History LMP: 04/07/2023, Having periods Age at Menarche: 13 Age at First : 16 Age at Menopause: Cage Supervisor History Comments: Sexual Activity: Yes; Male Contraception: Tubal Ligation, I.U.D. 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 PONV (postoperative nausea and vomiting) depression Thymoma THYMOLIPOMA Thyroid disease PAST SURGICAL HISTORY Procedure Laterality Date ADENOIDECTOMY PRIMARY <AGE 12 Adenoidectomy w/ tonsils DELIVERY ONLY , low transverse DELIVERY ONLY , low transverse DELIVERY ONLY 06/02/2017 DELIVERY ONLY DELIVERY ONLY 07/15/2021 LTCS COLONOSCOPY GEN ANES Colonoscopy and endoscopy D&C (INCOMPLETE AB), ANY TRIMESTER LAPAROSCOPY SURG CHOLECYSTECTOMY 09/19/2012 LAPS SURG CHOLECYSTECTOMY W/CHOLANGIOGRAPHY `09-19-12 MIRENA 05/13/2022 8 yr SALPINGECTOMY Bilateral 07/15/2021 THORACOTOMY, CYST REMOVAL 2006, 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, 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 TONSILLECTOMY PRIMARY/SECONDARY <AGE 12 Tonsillectomy w/ adenoids FAMILY HISTORY Problem Relation Age of Onset Anxiety disorder Mother Post-Traumatic Stress Disorder Mother Alcohol/Drug Mother DRUG Psychiatry Mother PTSD,ANXIET/DEPRESSION Heart Mother Cancer Mother Melanoma Depression Sister Suicide / Suicidal Behaviors Sister Cancer Brother Melanoma Alcohol/Drug Maternal Aunt DRUG Thyroid Maternal Aunt Cancer Maternal Grandmother Heart Maternal Grandmother Alcohol/Drug Maternal Grandfather ETOH Cancer Maternal Grandfather LUNG Bipolar disorder Daughter ADD/ADHD Daughter Asthma Daughter No Known Problems Son No Known Problems Son Social History Tobacco Use Smoking status: Every Day Packs/day: 1.00 Years: 15.00 Additional pack years: 0.00 Total pack years: 15.00 Types: Cigarettes Smokeless tobacco: Never Vaping Use Vaping Use: Never used Substance Use Topics Alcohol use: No Drug use: Not Currently Current Outpatient Medications Medication Sig nortriptyline (PAMELOR) 10 mg capsule Take 1 capsule by mouth every morning for 7 days, THEN 2 capsules every morning. nortriptyline (PAMELOR) 50 mg capsule Take 2 capsules by mouth daily at bedtime. propranolol (INDERAL) 10 mg tablet Take 1 tablet by mouth three times daily as needed. prazosin (MINIPRESS) 1 mg cap Take 1 capsule by mouth daily at bedtime. Take with 2 mg dose. prazosin (MINIPRESS) 2 mg cap Take 1 capsule by mouth daily at bedtime. Take with 1 mg dose. albuterol HFA (PROVENTIL HFA, VENTOLIN HFA) 90 mcg/actuation inhaler Inhale 2 Puffs as instructed every 4 hours as needed for wheezing/shortness of breath. EPINEPHrine (EPIPEN) 0.3 mg/0.3 mL auto-injector Inject 0.3 mL intramuscularly as needed (For allergic reaction). Use as directed No current facility-administered medications for this visit. Allergies As of Date: 05/13/2023 Allergen Noted Reaction CATS 04/03/2013 Anaphylaxis GENTAMICIN 09/20/2012 Other: See Comments GRASS POLLEN 11/10/2013 Hives Fully Assessed 04/22/2023 REVIEW OF SYSTEMS Abdomen: C/o pain and bloating. See HPI. Bladder: No dysuria, gross hematuria, urinary frequency, urinary urgency, or incontinence. Allergies and current medication updated:Yes EXAM: BP 120/78 Wt 148 lb (67.1kg) LMP 04/07/2023 GENERAL: pleasant, female in no apparent distress CHEST: Normal inspiratory effort ABDOMEN: soft, no masses, and Mild tenderness in RLQ, LLQ PELVIC: external genitalia normal, normal Bartholin's glands, urethra, Cardington's glands, no vulvar lesions, no cervical lesions, physiologic discharge present, normal appearing perineal body and perianal region BIMANUAL: uterus normal size, shape and consistency, no adnexal masses, and Mild tenderness NEURO: alert and oriented x3,exam grossly non-focal ASSESSMENT/PLAN: 1. Pelvic pain in female - ICD9: 625.9, ICD10: R10.2 (primary diagnosis) - JORDEN/TRICHOMONAS NAAT - BACTERIAL VAGINOSIS NAAT - CONSULT TO PHYSICAL THERAPY 2. Menorrhagia with regular cycle - ICD9: 626.2, ICD10: N92.0 - suspected adenomyosis. Menstrual flow increasing since last delivery 2 years ago. - ENDOMETRIAL BIOPSY - MISOPROSTOL 200 MCG TABLET 3. Vaginal discharge - ICD9: 623.5, ICD10: N89.8 - JORDEN/TRICHOMONAS NAAT - BACTERIAL VAGINOSIS NAAT 4. Stress incontinence - ICD9: [id number], ICD10: N39.3 - CONSULT TO PHYSICAL THERAPY 5. Cystocele, midline - ICD9: 618.01, ICD10: N81.11 1st degree - CONSULT TO PHYSICAL THERAPY Lengthy discussed regarding management of symptoms, all of which she has had previous side effects to. Interested in ablation or hysterectomy - discussed R/B/A and she would like to further discuss with Dr. Vallejo. Follow-up at [facility]. Annabelle Gonzalez APRN.CNP Medical Decision Making: Problems: Moderate: 1+ chronic illnesses with change Data: Unique test(s) ordered: 3+ Risk: Moderate: Moderate risk from testing/treatment Medical Decision Making Level: 4 - Moderate documented in this encounter [facility] 04-23-2023 Miscellaneous Notes Patient notified of results, verbalized understanding. Wilda Munroe MA ----- Message from Arpita Izaguirre APRN.CNP sent at 04/23/2023 11:49 AM EDT ----- Please advise patient the COVID, flu, RSV test was negative. documented in this encounter [facility] 04-22-2023 Instructions Samaria Singh APRN.CNP - 04/22/2023 9:46 PM EDT Salvador Lopez, It was good to talk with you today. Below is a summary of the plan that we discussed during your appointment for reference. Of course, if you have any questions or concerns do not hesitate to reach out to me via a message or call. Best, Samaria Singh REJECT OPENER.BOROUGH COORDINATOR PLAN AND FOLLOW UP: YOU SHOULD SEEK IMMEDIATE MEDICAL ATTENTION AT THE NEAREST EMERGENCY DEPARTMENT OR BY CALLING 911, IF ANY OF THE FOLLOWING OCCURS: - New or worsening thoughts of harming yourself (suicidal thoughts) or others (homicidal thoughts) - Not feeling safe at home or worrying about your ability to remain safe at home If you are having thoughts of harming yourself or others, then you can: - Call the National Suicide Hotline at 1-474-FTKHUCE ( ) or 7-174-185-TALK (0962) - Text 4HOPE to 340825 Medication Update: Nortriptyline 10 mg - take 1 capsule every morning for 7 days, then take 2 capsules once every morning after that. Nortriptyline 50 mg - take 2 capsules every night at bedtime. Propranolol 10 mg - take 1 tablet up to three times daily as needed for increased anxiety symptoms and intrusive thoughts. Continue Minipress at the same dose. Next appointment: May 20 at 11:30 am Virtual -- You may call the department appointment line at [phone] to schedule your appointment. -- Please call my nurse Rosa Elena at [phone] or send me a message in [employer] with any questions or concerns between appointments. documented in this encounter [facility] 04-22-2023 Note HNO ID: [id number] Author: Samaria Singh APRN.CNP Service: ? Author Type: Nurse Practitioner Type: Progress Notes Filed: 04/22/2023 9:52 PM Note Text: PSYC FOLLOW UP - PSYCHIATRIC PROGRESS NOTE DIAGNOSIS: OCD PTSD, Chronic Borderline Personality Disorder GAF: -60-51 Moderate symptoms or moderate difficulty in social, occupational or school functioning. TREATMENT PLAN: Increase Nortriptyline to help with anxiety symptoms. Utilize propranolol thoughts to help with anxiety and panic symptoms. Continue Minipress at the same dose to help with nightmares. Follow up in 4 weeks. Medication Update: Nortriptyline 10 mg - take 1 capsule every morning for 7 days, then take 2 capsules once every morning after that. Nortriptyline 50 mg - take 2 capsules every night at bedtime. Propranolol 10 mg - take 1 tablet up to three times daily as needed for increased anxiety symptoms and intrusive thoughts. Continue Minipress at the same dose. The effects and side effects of all the medications were reviewed in detail with the patient. She is in agreement with the treatment plan. She is aware to reach out with any questions, concerns, or worsening of symptoms prior to the next appointment. CC: Follow up for psychiatric medication management With the patient consent, visit was performed virtually. I have communicated my name and active licensure. The patient's identity and physical location were verified at the time of this visit. Either the patient or their legal senior customer service representative has been informed of the risks and benefits of -- and alternatives to -- treatment through a remote evaluation and consents to proceed with the evaluation remotely. HPI: Jessica Prieto is a 32 year old Female with a history of OCD, PTSD, and borderline personality disorder presenting today for follow-up. Date of last visit: 01/07/2023 Plan from last visit: Gradually increase nortriptyline dose to address anxiety symptoms. Continue prazosin at the same dose. Encouraged to schedule a visit with Dr. López for OCD related psychotherapy. Follow-up in April. Today Jessica shares that she enjoyed summer break with the kids. It was busy. Her eldest son who is 15 is struggling with nicotine addiction. He was also using marijuana. She felt grateful that he reached out to hear to ask for help. She continues to struggle to go anywhere alone and leaving her house. She has a hard time riding in vehicles. She notices that her heart starts to race. She has ruminating and catastrophic thoughts of something happening that could hurt her children. She finds herself checking multiple times. She worries that she will be kidnapped if she goes to a store. Needs her to go with her. Does not have a history of Asthma since she was a child. Only used albuterol during . Last used 2 years ago. She shares that nortriptyline helps with her ruminating thoughts and fear related to something bad happening to the kids. She has noticed some heart palpitations when she takes the medication at night. They resolve when she wakes up in the morning. Interval Progress: Slightly worse Risks and benefits of the medication, including any black box warnings, were discussed with the patient. Social History: See HPI PATIENT DATA: Generalized Anxiety Disorder Scale (MITCHELL-7) MITCHELL - 7 SCORES 12/02/2022 01/07/2023 04/22/2023 MITCHELL-7 Score 21 15 14 (0-4) minimal anxiety, (5-9) mild anxiety, (10-14) moderate anxiety, (15-21) severe anxiety Patient Health Questionnaire (PHQ-9) PHQ-9 12/25/2022 01/07/2023 04/22/2023 Score 10 7 4 (0-4) minimal depression, (5-9) mild depression, (10-14) moderate depression, (15-19) moderately severe depression, (20-27) severe depression ROS: General: Negative for fever, malaise, unintentional weight loss HEENT: Negative for recent changes in vision or hearing, no nasal drainage Respiratory: Negative for cough, wheezing or SOB Cardiovascular: Negative for chest pain GI: Negative for nausea, vomiting, change in bowel habits MUSCULOSKELETAL: Negative for acute back or joint pain SKIN: Negative for rash NEURO: Negative for headaches, seizures, focal neurological deficits All other systems negative. VITAL SIGNS: BP Temp Pulse Resp SpO2 MENTAL STATUS EXAMINATION: Appearance: Appropriately groomed, appears stated age Behavior: Appropriately engaged Psychomotor: No psychomotor agitation Cognition Level of Consciousness: Awake and alert. No fluctuation in wakefulness. Orientation: Grossly oriented Memory: Intact Attention/Concentration: Good Fund of Knowledge: Able to demonstrate an awareness of current events. Mood: Anxious Affect: Congruent to mood Speech/Language: Appropriate tone, prosody, sandy, phonetics, and syntax Thought Form: Goal-directed. No loosening of associations. Thought Content: No delusions noted or endorsed. Perceptual Disturbance (more content not included)... [facility] 04-22-2023 History of Presen t illness Narrative Images from the original note were not included. PSYC FOLLOW UP - PSYCHIATRIC PROGRESS NOTE DIAGNOSIS: OCD PTSD, Chronic Borderline Personality Disorder GAF: -60-51 Moderate symptoms or moderate difficulty in social, occupational or school functioning. TREATMENT PLAN: Increase Nortriptyline to help with anxiety symptoms. Utilize propranolol thoughts to help with anxiety and panic symptoms. Continue Minipress at the same dose to help with nightmares. Follow up in 4 weeks. Medication Update: Nortriptyline 10 mg - take 1 capsule every morning for 7 days, then take 2 capsules once every morning after that. Nortriptyline 50 mg - take 2 capsules every night at bedtime. Propranolol 10 mg - take 1 tablet up to three times daily as needed for increased anxiety symptoms and intrusive thoughts. Continue Minipress at the same dose. The effects and side effects of all the medications were reviewed in detail with the patient. She is in agreement with the treatment plan. She is aware to reach out with any questions, concerns, or worsening of symptoms prior to the next appointment. CC: Follow up for psychiatric medication management With the patient consent, visit was performed virtually. I have communicated my name and active licensure. The patient's identity and physical location were verified at the time of this visit. Either the patient or their legal senior customer service representative has been informed of the risks and benefits of -- and alternatives to -- treatment through a remote evaluation and consents to proceed with the evaluation remotely. HPI: Jessica Prieto is a 32 year old Female with a history of OCD, PTSD, and borderline personality disorder presenting today for follow-up. Date of last visit: 01/07/2023 Plan from last visit: Gradually increase nortriptyline dose to address anxiety symptoms. Continue prazosin at the same dose. Encouraged to schedule a visit with Dr. López for OCD related psychotherapy. Follow-up in April. Today Jessica shares that she enjoyed summer break with the kids. It was busy. Her eldest son who is 15 is struggling with nicotine addiction. He was also using marijuana. She felt grateful that he reached out to hear to ask for help. She continues to struggle to go anywhere alone and leaving her house. She has a hard time riding in vehicles. She notices that her heart starts to race. She has ruminating and catastrophic thoughts of something happening that could hurt her children. She finds herself checking multiple times. She worries that she will be kidnapped if she goes to a store. Needs her to go with her. Does not have a history of Asthma since she was a child. Only used albuterol during . Last used 2 years ago. She shares that nortriptyline helps with her ruminating thoughts and fear related to something bad happening to the kids. She has noticed some heart palpitations when she takes the medication at night. They resolve when she wakes up in the morning. Interval Progress: Slightly worse Risks and benefits of the medication, including any black box warnings, were discussed with the patient. Social History: See HPI PATIENT DATA: Generalized Anxiety Disorder Scale (MITCHELL-7) MITCHELL - 7 SCORES 12/02/2022 01/07/2023 04/22/2023 MITCHELL-7 Score 21 15 14 (0-4) minimal anxiety, (5-9) mild anxiety, (10-14) moderate anxiety, (15-21) severe anxiety Patient Health Questionnaire (PHQ-9) PHQ-9 12/25/2022 01/07/2023 04/22/2023 Score 10 7 4 (0-4) minimal depression, (5-9) mild depression, (10-14) moderate depression, (15-19) moderately severe depression, (20-27) severe depression ROS: General: Negative for fever, malaise, unintentional weight loss HEENT: Negative for recent changes in vision or hearing, no nasal drainage Respiratory: Negative for cough, wheezing or SOB Cardiovascular: Negative for chest pain GI: Negative for nausea, vomiting, change in bowel habits MUSCULOSKELETAL: Negative for acute back or joint pain SKIN: Negative for rash NEURO: Negative for headaches, seizures, focal neurological deficits All other systems negative. VITAL SIGNS: BP Temp Pulse Resp SpO2 MENTAL STATUS EXAMINATION: Appearance: Appropriately groomed, appears stated age Behavior: Appropriately engaged Psychomotor: No psychomotor agitation Cognition Level of Consciousness: Awake and alert. No fluctuation in wakefulness. Orientation: Grossly oriented Memory: Intact Attention/Concentration: Good Fund of Knowledge: Able to demonstrate an awareness of current events. Mood: Anxious Affect: Congruent to mood Speech/Language: Appropriate tone, prosody, sandy, phonetics, and syntax Thought Form: Goal-directed. No loosening of associations. Thought Content: No delusions noted or endorsed. Perceptual Disturbances: Did not appear to respond to auditory stimuli. Safety: Suicidal Ideations: No suicidal ideation, intent or plan. Homicidal Ideations: No homicidal ideation, intent or plan. Insight: Appropriate Judgment: Appropriate I spent a total of 38 minutes on the date of the service which included preparing to see the patient, emac-sy-byxy patient care, completing clinical documentation, and counseling and educating the patient/family/caregiver, ordering medications/labs. Samaria Singh APRN.BOROUGH COORDINATOR April 22, 2023 9:03 AM This note was partially generated using [employer]ape voice recognition system. Note was reviewed for accuracy. There may be minor misspellings or grammar miscues with [place] voice recognition. documented in this encounter [facility] 04-21-2023 Note HNO ID: [id number] Author: Kerry Sierra APRN.GERRI Service: ? Author Type: Nurse Practitioner Type: Progress Notes Filed: 04/21/2023 12:48 PM Note Text: This note was created using [employer]. Subjective Jessica Prieto is a 32 year old female. 32 year old female with PMH migraine, asthma, vertigo, hypothyroidism, PTSD, adjustment disorder, anxiety, depression presents for complaints of illness. Acute onset yesterday evening +headache +nausea Whole head +photophobia +fatigue +achy Denies emesis. Denies diarrhea Denies visual disturbances. Did not occur during coitus, worst headache of life or sudden clap. Denies weakness States children at home with illness. States 5 year old diagnosed with strep last week. Has used Tylenol. The history is provided by the patient. No diplomatic interpreter/translator was used. Headache This is a new problem. The problem occurs constantly. The headache is associated with nothing. Pain location: generalized. The quality of the pain is described as throbbing and sharp. The pain is at a severity of 6/10. The pain is moderate. The pain does not radiate. Associated symptoms include nausea. Pertinent negatives include no anorexia, no fever, no malaise/fatigue, no chest pressure, no near-syncope, no orthopnea, no palpitations, no syncope, no shortness of breath and no vomiting. She has tried acetaminophen for the symptoms. The treatment provided no relief. 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 PONV (postoperative nausea and vomiting) depression Thymoma THYMOLIPOMA Thyroid disease PAST SURGICAL HISTORY Procedure Laterality Date ADENOIDECTOMY PRIMARY Adenoidectomy w/ tonsils DELIVERY ONLY , low transverse DELIVERY ONLY , low transverse DELIVERY ONLY 06/02/2017 DELIVERY ONLY DELIVERY ONLY 07/15/2021 [facility] COLONOSCOPY GEN ANES Colonoscopy and endoscopy DANDC (INCOMPLETE AB), ANY TRIMESTER LAPAROSCOPY SURG CHOLECYSTECTOMY 09/19/2012 LAPS SURG CHOLECYSTECTOMY W/CHOLANGIOGRAPHY `09-19-12 MIRENA 05/13/2022 8 yr SALPINGECTOMY Bilateral 07/15/2021 THORACOTOMY, CYST REMOVAL 2006, 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, 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 EPINEPHrine (EPIPEN) 0.3 mg/0.3 mL auto-injector Inject 0.3 mL intramuscularly as needed (For allergic reaction). Use as directed albuterol HFA (PROVENTIL HFA, VENTOLIN HFA) 90 mcg/actuation inhaler Inhale 2 Puffs as instructed every 4 hours as needed for wheezing/shortness of breath. FAMILY HISTORY Problem Relation Age of Onset Anxiety disorder Mother Post-Traumatic Stress Disorder Mother Alcohol/Drug Mother DRUG Psychiatry Mother PTSD,ANXIET/DEPRESSION Heart Mother Cancer Mother Melanoma Depression Sister Suicide / Suicidal Behaviors Sister Cancer Brother Melanoma Alcohol/Drug Maternal Aunt DRUG Thyroid Maternal Aunt Cancer Maternal Grandmother Heart Maternal Grandmother Alcohol/Drug Maternal Grandfather ETOH Cancer Maternal Grandfather LUNG Bipolar disorder Daughter ADD/ADHD Daughter Asthma Daughter No Known Problems Son No Known Problems Son Social History Tobacco Use Smoking status: Every Day Packs/day: 1.00 Years: 15.00 Additional pack years: 0.00 Total pack years: 15.00 Types: Cigarettes Smokeless tobacco: Never Vaping Use Vaping Use: Never used Substance Use Topics Alcohol use: No Drug use: Not Currently Review of Systems Constitutional: Positive for fatigue. Negative for activity change, appetite change, fever and malaise/fatigue. Eyes: Negative for photophobia, pain, discharge, redness and itching. Respiratory: Positive for choking. Negative for apnea, chest tightness and shortness of breath. Cardiovascular: Negative for chest pain, palpitations, orthopnea, leg swelling, syncope and near-syncope. Gastrointestinal: Positive for nausea. Negative for abdominal pain, anorexia and vomiting. Skin: Negative for color change, pallor, rash and wound. Allergic/Immunologic: Negative for environmental allergies, food allergies and immunocompromised state. Neurological: Positive for headaches. Negative for dizziness and facial asymmetry. Hematological: Negative for adenopathy. Does not bruise/bleed easily. Psychiatric/Behavioral: Negative for agitation and behavioral problems. Objective BP 122 (more content not included)... [facility] 04-21-2023 History of Presen t illness Narrative This note was created using [employer]. Subjective Jessica Prieto is a 32 year old female. 32 year old female with PMH migraine, asthma, vertigo, hypothyroidism, PTSD, adjustment disorder, anxiety, depression presents for complaints of illness. Acute onset yesterday evening +headache +nausea Whole head +photophobia +fatigue +achy Denies emesis. Denies diarrhea Denies visual disturbances. Did not occur during coitus, worst headache of life or sudden clap. Denies weakness States children at home with illness. States 5 year old diagnosed with strep last week. Has used Tylenol. The history is provided by the patient. No diplomatic interpreter/translator was used. Headache This is a new problem. The problem occurs constantly. The headache is associated with nothing. Pain location: generalized. The quality of the pain is described as throbbing and sharp. The pain is at a severity of 6/10. The pain is moderate. The pain does not radiate. Associated symptoms include nausea. Pertinent negatives include no anorexia, no fever, no malaise/fatigue, no chest pressure, no near-syncope, no orthopnea, no palpitations, no syncope, no shortness of breath and no vomiting. She has tried acetaminophen for the symptoms. The treatment provided no relief. 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 PONV (postoperative nausea and vomiting) depression Thymoma THYMOLIPOMA Thyroid disease PAST SURGICAL HISTORY Procedure Laterality Date ADENOIDECTOMY PRIMARY <AGE 12 Adenoidectomy w/ tonsils DELIVERY ONLY , low transverse DELIVERY ONLY , low transverse DELIVERY ONLY 06/02/2017 DELIVERY ONLY DELIVERY ONLY 07/15/2021 [facility] COLONOSCOPY GEN ANES Colonoscopy and endoscopy D&C (INCOMPLETE AB), ANY TRIMESTER LAPAROSCOPY SURG CHOLECYSTECTOMY 09/19/2012 LAPS SURG CHOLECYSTECTOMY W/CHOLANGIOGRAPHY `09-19-12 MIRENA 05/13/2022 8 yr SALPINGECTOMY Bilateral 07/15/2021 THORACOTOMY, CYST REMOVAL 2006, 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, 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 EPINEPHrine (EPIPEN) 0.3 mg/0.3 mL auto-injector Inject 0.3 mL intramuscularly as needed (For allergic reaction). Use as directed albuterol HFA (PROVENTIL HFA, VENTOLIN HFA) 90 mcg/actuation inhaler Inhale 2 Puffs as instructed every 4 hours as needed for wheezing/shortness of breath. FAMILY HISTORY Problem Relation Age of Onset Anxiety disorder Mother Post-Traumatic Stress Disorder Mother Alcohol/Drug Mother DRUG Psychiatry Mother PTSD,ANXIET/DEPRESSION Heart Mother Cancer Mother Melanoma Depression Sister Suicide / Suicidal Behaviors Sister Cancer Brother Melanoma Alcohol/Drug Maternal Aunt DRUG Thyroid Maternal Aunt Cancer Maternal Grandmother Heart Maternal Grandmother Alcohol/Drug Maternal Grandfather ETOH Cancer Maternal Grandfather LUNG Bipolar disorder Daughter ADD/ADHD Daughter Asthma Daughter No Known Problems Son No Known Problems Son Social History Tobacco Use Smoking status: Every Day Packs/day: 1.00 Years: 15.00 Additional pack years: 0.00 Total pack years: 15.00 Types: Cigarettes Smokeless tobacco: Never Vaping Use Vaping Use: Never used Substance Use Topics Alcohol use: No Drug use: Not Currently Review of Systems Constitutional: Positive for fatigue. Negative for activity change, appetite change, fever and malaise/fatigue. Eyes: Negative for photophobia, pain, discharge, redness and itching. Respiratory: Positive for choking. Negative for apnea, chest tightness and shortness of breath. Cardiovascular: Negative for chest pain, palpitations, orthopnea, leg swelling, syncope and near-syncope. Gastrointestinal: Positive for nausea. Negative for abdominal pain, anorexia and vomiting. Skin: Negative for color change, pallor, rash and wound. Allergic/Immunologic: Negative for environmental allergies, food allergies and immunocompromised state. Neurological: Positive for headaches. Negative for dizziness and facial asymmetry. Hematological: Negative for adenopathy. Does not bruise/bleed easily. Psychiatric/Behavioral: Negative for agitation and behavioral problems. Objective BP 122/82 Pulse 97 Temp 36.9 C (98.5 F) (Tympanic) Resp 16 Wt 65.3 kg (144 lb) LMP (LMP Unknown) SpO2 99% BMI 26.34 kg/m Physical Exam Vitals and nursing note reviewed. Constitutional: General: She is not in acute distress. Appearance: Normal appearance. She is normal weight. She is not ill-appearing, toxic-appearing or diaphoretic. HENT: Head: Normocephalic and atraumatic. Right Ear: Ear canal and external ear normal. Left Ear: Ear canal and external ear normal. Nose: Nose normal. No congestion or rhinorrhea. Mouth/Throat: Mouth: Mucous membranes are moist. Pharynx: No oropharyngeal exudate or posterior oropharyngeal erythema. Eyes: General: Right eye: No discharge. Left eye: No discharge. Extraocular Movements: Extraocular movements intact. Conjunctiva/sclera: Conjunctivae normal. Pupils: Pupils are equal, round, and reactive to light. Cardiovascular: Rate and Rhythm: Normal rate and regular rhythm. Pulses: Normal pulses. Heart sounds: Normal heart sounds. No murmur heard. No friction rub. Pulmonary: Effort: Pulmonary effort is normal. No respiratory distress. Breath sounds: Normal breath sounds. No stridor. No wheezing, rhonchi or rales. Chest: Chest wall: No tenderness. Abdominal: General: Abdomen is flat. There is no distension. Palpations: Abdomen is soft. There is no mass. Tenderness: There is no abdominal tenderness. There is no right CVA tenderness, left CVA tenderness, guarding or rebound. Hernia: No hernia is present. Musculoskeletal: General: No swelling, tenderness, deformity or signs of injury. Normal range of motion. Cervical back: Normal range of motion and neck supple. No rigidity. Right lower leg: No edema. Left lower leg: No edema. Lymphadenopathy: Cervical: No cervical adenopathy. Skin: General: Skin is warm and dry. Capillary Refill: Capillary refill takes less than 2 seconds. Coloration: Skin is not jaundiced or pale. Findings: No bruising, erythema, lesion or rash. Neurological: General: No focal deficit present. Mental Status: She is alert and oriented to person, place, and time. Cranial Nerves: No cranial nerve deficit. Sensory: No sensory deficit. Motor: No weakness. Coordination: Coordination normal. Gait: Gait normal. Psychiatric: Mood and Affect: Mood normal. Behavior: Behavior normal. Thought Content: Thought content normal. Judgment: Judgment normal. Assessment and Plan ASSESSMENT/PLAN: 1. Headaches, migraine - ICD9: 346.90, ICD10: G43.909 (primary diagnosis) X one day History of migraines No red flags Toradol administered, At time of re-examination patient has improvement in symtpoms Continue OTC analgesics Increase fluids Discussed red flags - KETOROLAC 60 MG/2 ML INTRAMUSCULAR SOLUTION - ONDANSETRON 8 MG DISINTEGRATING TABLET - STREP A MOLECULAR (POC) - COVID & INFLUENZA A/B & RSV NAAT, ROUTINE - COVID NAAT, ROUTINE - ROUTINE FLU A/B + RSV 2. Nausea - ICD9: 787.02, ICD10: R11.0 Associated with headache/migraine - KETOROLAC 60 MG/2 ML INTRAMUSCULAR SOLUTION - ONDANSETRON 8 MG DISINTEGRATING TABLET - STREP A MOLECULAR (POC) - COVID & INFLUENZA A/B & RSV NAAT, ROUTINE - COVID NAAT, ROUTINE - ROUTINE FLU A/B + RSV 3. Viral illness - ICD9: 079.99, ICD10: B34.9 X 1 day Children home and are ill No red flags - Discussed viral etiology and rationale for treatment. - Group A strep molecular testing negative - Symptomatic treatment with prn analgesia - Supportive care with fluids and rest - The patient may also use OTC cough and cold meds as needed, warm salt water gargles, throat lozenges and/or OTC throat spray as needed, and nasal saline gtts and suction prn. - Follow up in 3-5 days if symptoms persist or sooner if worsening of symptoms - STREP A MOLECULAR (POC) - COVID & INFLUENZA A/B & RSV NAAT, ROUTINE - COVID NAAT, ROUTINE - ROUTINE FLU A/B + RSV Kerry Sierra APRN.BOROUGH COORDINATOR documented in this encounter [facility] 03-25-2023 Miscellaneous Notes POPULATION HEALTH NAVIGATION OUTREACH Action/ call-Unable to LVM for patient regarding consult to ORTHO, Mychart message sent. Patient Identified by Name and : NO Outreach Outcome/Action Unable to reach patient: Phone number not valid / voicemail full MyChart message sent Did you use a PCP flex slot to schedule this appointment? N/A Reason for Outreach Care Gap or Scheduling/Wellness visits Payer: Payor: [place] [employer]ICA[employer] / Plan: [facility] MEDICAID / Product Type: Medicaid / Care Gap Reviewed:: Specialty Scheduling Reminder: Reminder note to check Health Maintenance for items below Health Maintenance items due: HEPATITIS B(1 of 3 - 3-dose series) Never done PNEUMOCOCCAL(1 - PCV) Never done HPV TESTING Never done DEPRESSION ASSESSMENT Never done Navigation Signature: Melissa Dominguez March 25, 2023 4:03 PM documented in this encounter [facility] 02-25-2023 Note HNO ID: [id number] Author: RT Wilfredo(Toy) Service: Radiology Author Type: Technologist Type: Progress Notes Filed: 02/25/2023 4:34 PM Note Text: Radiology Service Progress Note PATIENT NAME: Jessica Prieto DATE OF SERVICE: February 25, 2023 TIME: 4:25 PM PATIENT IDENTITY VERIFICATION COMPLETED USING TWO (2) IDENTIFIERS: Name and Date of confirmed by patient verbally. FALL SCREENING: Has the patient had 2 falls in the last year or 1 fall with injury or currently using an Ambulatory Assistive Device (Walker, Cane, Wheelchair, Crutches, etc.)? No PATIENT GENDER DATA: Female. status: : No status: NO. PATIENT RELEVANT IMPLANT DATA REVIEWED: Yes RADIOLOGY DEPARTMENT: General X-ray: Exam(s) Completed: Upper Extremity X-Ray(s): Shoulder, AP / TRUE AP / AXILLARY left PERIPHERAL IV DATA: Not applicable SIGNED BY: RT Wilfredo(R) February 25, 2023 4:25 PM [facility] 02-25-2023 Note HNO ID: [id number] Author: Rajan Smith APRN.BOROUGH COORDINATOR Service: ? Author Type: Nurse Practitioner Type: Progress Notes Filed: 02/25/2023 4:57 PM Note Text: Subjective She came in with complaints of left shoulder pain. Patient says she was picking up a 25 pound child and started hurting afterwards. Patient says it did cause numbness in 3 of the fingers initially but that seems to be better. Patient has all feeling in her hand. Patient says it hurts to lift. Patient says performing any range of motion is painful. The history is provided by the patient. No diplomatic interpreter/translator was used. Review of Systems Constitutional: Negative. Skin: Negative. Objective Physical Exam Constitutional: Appearance: Normal appearance. Pulmonary: Effort: Pulmonary effort is normal. Musculoskeletal: Arms: Comments: Patient is experiencing a significant portion of the pain in the area marked above and green. Patient is able to do range of motion but causes significant pain. Patient failed empty can test and scratch test. Neurological: Mental Status: She is alert. 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 PONV (postoperative nausea and vomiting) depression Thymoma THYMOLIPOMA Thyroid disease PAST SURGICAL HISTORY Procedure Laterality Date ADENOIDECTOMY PRIMARY Adenoidectomy w/ tonsils DELIVERY ONLY , low transverse DELIVERY ONLY , low transverse DELIVERY ONLY 06/02/2017 DELIVERY ONLY DELIVERY ONLY 07/15/2021 [facility] COLONOSCOPY GEN ANES Colonoscopy and endoscopy DANDC (INCOMPLETE AB), ANY TRIMESTER LAPAROSCOPY SURG CHOLECYSTECTOMY 09/19/2012 LAPS SURG CHOLECYSTECTOMY W/CHOLANGIOGRAPHY `09-19-12 MIRENA 05/13/2022 8 yr SALPINGECTOMY Bilateral 07/15/2021 THORACOTOMY, CYST REMOVAL 2006, 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, 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 prazosin (MINIPRESS) 1 mg cap Take 1 capsule by mouth daily at bedtime. Take with 2 mg dose. prazosin (MINIPRESS) 2 mg cap Take 1 capsule by mouth daily at bedtime. Take with 1 mg dose. nortriptyline (PAMELOR) 50 mg capsule Take 1 capsule by mouth daily at bedtime for 14 days, THEN 2 capsules daily at bedtime. EPINEPHrine (EPIPEN) 0.3 mg/0.3 mL auto-injector Inject 0.3 mL intramuscularly as needed (For allergic reaction). Use as directed FAMILY HISTORY Problem Relation Age of Onset Anxiety disorder Mother Post-Traumatic Stress Disorder Mother Alcohol/Drug Mother DRUG Psychiatry Mother PTSD,ANXIET/DEPRESSION Heart Mother Cancer Mother Melanoma Depression Sister Suicide / Suicidal Behaviors Sister Cancer Brother Melanoma Alcohol/Drug Maternal Aunt DRUG Thyroid Maternal Aunt Cancer Maternal Grandmother Heart Maternal Grandmother Alcohol/Drug Maternal Grandfather ETOH Cancer Maternal Grandfather LUNG Bipolar disorder Daughter ADD/ADHD Daughter Asthma Daughter No Known Problems Son No Known Problems Son Social History Tobacco Use Smoking status: Every Day Packs/day: 1.00 Years: 15.00 Pack years: 15.00 Types: Cigarettes Smokeless tobacco: Never Vaping Use Vaping Use: Never used Substance Use Topics Alcohol use: No Drug use: Not Currently ASSESSMENT/PLAN: 1. Pain - ICD9: 780.96, ICD10: R52 - XR SHOULDER GENERAL 3V OR MORE AP/TRUE AP/OTHER LEFT * * *Final Report* * * DATE OF EXAM: Feb 25 2023 4:34PM WOX 5252 - XR SHLDR >/=3V AP/TATI AP/OTHR LT / PROCEDURE REASON: Pain * * * * Physician Interpretation * * * * EXAMINATION: XR SHLDR >/=3V AP/TATI AP/OTHR LT CLINICAL HISTORY: Left shoulder pain Technique: XR SHLDR >/=3V AP/TATI AP/OTHR LT -- LEFT with 3 views on 3 images Comparison: None RESULT: No acute fracture or dislocation. Joint spaces are maintained. IMPRESSION IMPRESSION: No acute osseous abnormality Finisher Card Tender: LUIS ANGEL Transcribe Date/Time: Feb 25 2023 4:35P - CONSULT TO ORTHOPAEDICS - appt was made. Patient does want to call around and find out if she can get a sooner available appointment with a different orthopedics. Patient was given a sling for comfort. Patient will rest ice and take it easy. Patient was okay with this care plan. Rajan Smith APRN.[facility] 02-25-2023 History of Presen t illness Narrative Images from the original note were not included. Subjective She came in with complaints of left shoulder pain. Patient says she was picking up a 25 pound child and started hurting afterwards. Patient says it did cause numbness in 3 of the fingers initially but that seems to be better. Patient has all feeling in her hand. Patient says it hurts to lift. Patient says performing any range of motion is painful. The history is provided by the patient. No diplomatic interpreter/translator was used. Review of Systems Constitutional: Negative. Skin: Negative. Objective Physical Exam Constitutional: Appearance: Normal appearance. Pulmonary: Effort: Pulmonary effort is normal. Musculoskeletal: Arms: Comments: Patient is experiencing a significant portion of the pain in the area marked above and green. Patient is able to do range of motion but causes significant pain. Patient failed empty can test and scratch test. Neurological: Mental Status: She is alert. 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 PONV (postoperative nausea and vomiting) depression Thymoma THYMOLIPOMA Thyroid disease PAST SURGICAL HISTORY Procedure Laterality Date ADENOIDECTOMY PRIMARY <AGE 12 Adenoidectomy w/ tonsils DELIVERY ONLY , low transverse DELIVERY ONLY , low transverse DELIVERY ONLY 06/02/2017 DELIVERY ONLY DELIVERY ONLY 07/15/2021 [facility] COLONOSCOPY GEN ANES Colonoscopy and endoscopy D&C (INCOMPLETE AB), ANY TRIMESTER LAPAROSCOPY SURG CHOLECYSTECTOMY 09/19/2012 LAPS SURG CHOLECYSTECTOMY W/CHOLANGIOGRAPHY `09-19-12 MIRENA 05/13/2022 8 yr SALPINGECTOMY Bilateral 07/15/2021 THORACOTOMY, CYST REMOVAL 2006, 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, 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 prazosin (MINIPRESS) 1 mg cap Take 1 capsule by mouth daily at bedtime. Take with 2 mg dose. prazosin (MINIPRESS) 2 mg cap Take 1 capsule by mouth daily at bedtime. Take with 1 mg dose. nortriptyline (PAMELOR) 50 mg capsule Take 1 capsule by mouth daily at bedtime for 14 days, THEN 2 capsules daily at bedtime. EPINEPHrine (EPIPEN) 0.3 mg/0.3 mL auto-injector Inject 0.3 mL intramuscularly as needed (For allergic reaction). Use as directed FAMILY HISTORY Problem Relation Age of Onset Anxiety disorder Mother Post-Traumatic Stress Disorder Mother Alcohol/Drug Mother DRUG Psychiatry Mother PTSD,ANXIET/DEPRESSION Heart Mother Cancer Mother Melanoma Depression Sister Suicide / Suicidal Behaviors Sister Cancer Brother Melanoma Alcohol/Drug Maternal Aunt DRUG Thyroid Maternal Aunt Cancer Maternal Grandmother Heart Maternal Grandmother Alcohol/Drug Maternal Grandfather ETOH Cancer Maternal Grandfather LUNG Bipolar disorder Daughter ADD/ADHD Daughter Asthma Daughter No Known Problems Son No Known Problems Son Social History Tobacco Use Smoking status: Every Day Packs/day: 1.00 Years: 15.00 Pack years: 15.00 Types: Cigarettes Smokeless tobacco: Never Vaping Use Vaping Use: Never used Substance Use Topics Alcohol use: No Drug use: Not Currently ASSESSMENT/PLAN: 1. Pain - ICD9: 780.96, ICD10: R52 - XR SHOULDER GENERAL 3V OR MORE AP/TRUE AP/OTHER LEFT * * *Final Report* * * DATE OF EXAM: Feb 25 2023 4:34PM WOX 5252 - XR SHLDR >/=3V AP/TATI AP/OTHR LT / PROCEDURE REASON: Pain * * * * Physician Interpretation * * * * EXAMINATION: XR SHLDR >/=3V AP/TATI AP/OTHR LT CLINICAL HISTORY: Left shoulder pain Technique: XR SHLDR >/=3V AP/TATI AP/OTHR LT -- LEFT with 3 views on 3 images Comparison: None RESULT: No acute fracture or dislocation. Joint spaces are maintained. IMPRESSION IMPRESSION: No acute osseous abnormality Finisher Card Tender: LUIS ANGEL Transcribe Date/Time: Feb 25 2023 4:35P - CONSULT TO ORTHOPAEDICS - appt was made. Patient does want to call around and find out if she can get a sooner available appointment with a different orthopedics. Patient was given a sling for comfort. Patient will rest ice and take it easy. Patient was okay with this care plan. Rajan Smith APRN.CNP documented in this encounter [facility] 02-03-2023 Note HNO ID: [id number] Author: RT Wilfredo(R) Service: Radiology Author Type: Technologist Type: Progress Notes Filed: 02/03/2023 1:16 PM Note Text: Radiology Service Progress Note PATIENT NAME: Jessica Prieto DATE OF SERVICE: February 03, 2023 TIME: 1:16 PM PATIENT IDENTITY VERIFICATION COMPLETED USING TWO (2) IDENTIFIERS: Name and Date of confirmed by patient verbally. FALL SCREENING: Has the patient had 2 falls in the last year or 1 fall with injury or currently using an Ambulatory Assistive Device (Walker, Cane, Wheelchair, Crutches, etc.)? No PATIENT GENDER DATA: Female. status: : No status: NO. PATIENT RELEVANT IMPLANT DATA REVIEWED: Yes RADIOLOGY DEPARTMENT: General X-ray: Exam(s) Completed: Chest X-Ray PERIPHERAL IV DATA: Not applicable SIGNED BY: RT Wilfredo(R) February 03, 2023 1:16 PM [facility] 02-03-2023 Note HNO ID: [id number] Author: MARYSOL Duff Service: ? Author Type: Physician Bridge Crane Operator Type: Progress Notes Filed: 02/03/2023 1:32 PM Note Text: This note was created using [employer]. Subjective Jessica Prieto is a 32 year old female. HPI 32-year-old female presents for cough, shortness of breath, lightheadedness, chills. Patient states that she has had a productive cough for the past month. She thought it was due to season change. She is a smoker. She reports some mild shortness of breath. She does not use inhalers at home. No chest pain. Patient also reports some lightheadedness over the past few days. She states whenever she stands up quickly, she occasionally gets lightheaded. She states her psychiatrist recently increased her medication dose and she is unsure if this is what is causing the lightheadedness. No vision changes. She denies ever having this in the past. She has no history of blood pressure issues that she is aware of. She has been eating and drinking, no vomiting or diarrhea. She has not had any fevers. No other complaints. 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 PONV (postoperative nausea and vomiting) depression Thymoma THYMOLIPOMA Thyroid disease PAST SURGICAL HISTORY Procedure Laterality Date ADENOIDECTOMY PRIMARY Adenoidectomy w/ tonsils DELIVERY ONLY , low transverse DELIVERY ONLY , low transverse DELIVERY ONLY 06/02/2017 DELIVERY ONLY DELIVERY ONLY 07/15/2021 [facility] COLONOSCOPY GEN ANES Colonoscopy and endoscopy DANDC (INCOMPLETE AB), ANY TRIMESTER LAPAROSCOPY SURG CHOLECYSTECTOMY 09/19/2012 LAPS SURG CHOLECYSTECTOMY W/CHOLANGIOGRAPHY `09-19-12 MIRENA 05/13/2022 8 yr SALPINGECTOMY Bilateral 07/15/2021 THORACOTOMY, CYST REMOVAL 2006, 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, 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 Take with 2 mg dose. prazosin (MINIPRESS) 2 mg cap Take 1 capsule by mouth daily at bedtime. Take with 1 mg dose. nortriptyline (PAMELOR) 50 mg capsule Take 1 capsule by mouth daily at bedtime for 14 days, THEN 2 capsules daily at bedtime. EPINEPHrine (EPIPEN) 0.3 mg/0.3 mL auto-injector Inject 0.3 mL intramuscularly as needed (For allergic reaction). Use as directed FAMILY HISTORY Problem Relation Age of Onset Anxiety disorder Mother Post-Traumatic Stress Disorder Mother Alcohol/Drug Mother DRUG Psychiatry Mother PTSD,ANXIET/DEPRESSION Heart Mother Cancer Mother Melanoma Depression Sister Suicide / Suicidal Behaviors Sister Cancer Brother Melanoma Alcohol/Drug Maternal Aunt DRUG Thyroid Maternal Aunt Cancer Maternal Grandmother Heart Maternal Grandmother Alcohol/Drug Maternal Grandfather ETOH Cancer Maternal Grandfather LUNG Bipolar disorder Daughter ADD/ADHD Daughter Asthma Daughter No Known Problems Son No Known Problems Son Social History Tobacco Use Smoking status: Every Day Packs/day: 1.00 Years: 15.00 Pack years: 15.00 Types: Cigarettes Smokeless tobacco: Never Vaping Use Vaping Use: Never used Substance Use Topics Alcohol use: No Drug use: Not Currently Review of Systems Constitutional: Positive for chills. Negative for fever. HENT: Positive for congestion. Negative for ear pain and sore throat. Respiratory: Positive for cough, shortness of breath and wheezing. Cardiovascular: Negative for chest pain. Gastrointestinal: Negative for diarrhea and vomiting. Neurological: Positive for light-headedness. Objective BP 110/66 Pulse 96 Temp 37.1 ?C (98.7 ?F) Resp 16 Wt 62.1 kg (137 lb) LMP (LMP Unknown) SpO2 97% BMI 25.06 kg/m? Physical Exam Vitals and nursing note reviewed. Constitutional: General: She is not in acute distress. Appearance: Normal appearance. She is not toxic-appearing. HENT: Right Ear: Tympanic membrane and ear canal normal. Left Ear: Tympanic membrane and ear canal normal. Nose: Nose normal. Mouth/Throat: Mouth: Mucous membranes are moist. Pharynx: No oropharyngeal exudate or posterior oropharyngeal erythema. Eyes: Conjunctiva/sclera: Conjunctivae normal. Cardiovascular: Rate and Rhythm: Normal rate and regular rhythm. Pulmonary: Effort: Pulmonary effort is normal. Breath sounds: Wheezing (mild) present. Neurological: General: No focal deficit present. Mental Status: She is alert and oriented to person, place, and time. Sensory: No s (more content not included)... [facility] 02-03-2023 History of Presen t illness Narrative This note was created using [employer]. Subjective Jessica Prieto is a 32 year old female. HPI 32-year-old female presents for cough, shortness of breath, lightheadedness, chills. Patient states that she has had a productive cough for the past month. She thought it was due to season change. She is a smoker. She reports some mild shortness of breath. She does not use inhalers at home. No chest pain. Patient also reports some lightheadedness over the past few days. She states whenever she stands up quickly, she occasionally gets lightheaded. She states her psychiatrist recently increased her medication dose and she is unsure if this is what is causing the lightheadedness. No vision changes. She denies ever having this in the past. She has no history of blood pressure issues that she is aware of. She has been eating and drinking, no vomiting or diarrhea. She has not had any fevers. No other complaints. 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 PONV (postoperative nausea and vomiting) depression Thymoma THYMOLIPOMA Thyroid disease PAST SURGICAL HISTORY Procedure Laterality Date ADENOIDECTOMY PRIMARY <AGE 12 Adenoidectomy w/ tonsils DELIVERY ONLY , low transverse DELIVERY ONLY , low transverse DELIVERY ONLY 06/02/2017 DELIVERY ONLY DELIVERY ONLY 07/15/2021 [facility] COLONOSCOPY GEN ANES Colonoscopy and endoscopy D&C (INCOMPLETE AB), ANY TRIMESTER LAPAROSCOPY SURG CHOLECYSTECTOMY 09/19/2012 LAPS SURG CHOLECYSTECTOMY W/CHOLANGIOGRAPHY `09-19-12 MIRENA 05/13/2022 8 yr SALPINGECTOMY Bilateral 07/15/2021 THORACOTOMY, CYST REMOVAL 2006, 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, 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 Take with 2 mg dose. prazosin (MINIPRESS) 2 mg cap Take 1 capsule by mouth daily at bedtime. Take with 1 mg dose. nortriptyline (PAMELOR) 50 mg capsule Take 1 capsule by mouth daily at bedtime for 14 days, THEN 2 capsules daily at bedtime. EPINEPHrine (EPIPEN) 0.3 mg/0.3 mL auto-injector Inject 0.3 mL intramuscularly as needed (For allergic reaction). Use as directed FAMILY HISTORY Problem Relation Age of Onset Anxiety disorder Mother Post-Traumatic Stress Disorder Mother Alcohol/Drug Mother DRUG Psychiatry Mother PTSD,ANXIET/DEPRESSION Heart Mother Cancer Mother Melanoma Depression Sister Suicide / Suicidal Behaviors Sister Cancer Brother Melanoma Alcohol/Drug Maternal Aunt DRUG Thyroid Maternal Aunt Cancer Maternal Grandmother Heart Maternal Grandmother Alcohol/Drug Maternal Grandfather ETOH Cancer Maternal Grandfather LUNG Bipolar disorder Daughter ADD/ADHD Daughter Asthma Daughter No Known Problems Son No Known Problems Son Social History Tobacco Use Smoking status: Every Day Packs/day: 1.00 Years: 15.00 Pack years: 15.00 Types: Cigarettes Smokeless tobacco: Never Vaping Use Vaping Use: Never used Substance Use Topics Alcohol use: No Drug use: Not Currently Review of Systems Constitutional: Positive for chills. Negative for fever. HENT: Positive for congestion. Negative for ear pain and sore throat. Respiratory: Positive for cough, shortness of breath and wheezing. Cardiovascular: Negative for chest pain. Gastrointestinal: Negative for diarrhea and vomiting. Neurological: Positive for light-headedness. Objective BP 110/66 Pulse 96 Temp 37.1 C (98.7 F) Resp 16 Wt 62.1 kg (137 lb) LMP (LMP Unknown) SpO2 97% BMI 25.06 kg/m Physical Exam Vitals and nursing note reviewed. Constitutional: General: She is not in acute distress. Appearance: Normal appearance. She is not toxic-appearing. HENT: Right Ear: Tympanic membrane and ear canal normal. Left Ear: Tympanic membrane and ear canal normal. Nose: Nose normal. Mouth/Throat: Mouth: Mucous membranes are moist. Pharynx: No oropharyngeal exudate or posterior oropharyngeal erythema. Eyes: Conjunctiva/sclera: Conjunctivae normal. Cardiovascular: Rate and Rhythm: Normal rate and regular rhythm. Pulmonary: Effort: Pulmonary effort is normal. Breath sounds: Wheezing (mild) present. Neurological: General: No focal deficit present. Mental Status: She is alert and oriented to person, place, and time. Sensory: No sensory deficit. Motor: No weakness. Coordination: Coordination normal. Gait: Gait normal. Assessment and Plan ASSESSMENT/PLAN: 1. Acute cough - ICD9: 786.2, ICD10: R05.1 (primary diagnosis) - XR CHEST 2V FRONTAL/LAT - CXR no acute findings - Treat for sinobronchitis, symptoms x 1 month. 2. Orthostatic lightheadedness - ICD9: 780.4, ICD10: R42 -Blood pressure normal on exam today. No lightheadedness currently. Neuro exam intact. -Possibly side effect of recent medication change? Advised patient to discuss this with psychiatrist. - Also possibly due to sinus infection. Treating with atb. -In the meantime, discussed going from laying to sitting to standing slowly. Recommend drinking plenty of fluids to stay hydrated. -No chest pain or other symptoms concerning for ACS or other acute cardiac process at this time. No signs/symptoms concerning for CVA, TIA or acute neurological process requiring emergent evaluation. -Recommend follow-up with PCP if symptoms continue. 3. Sinobronchitis - ICD9: 473.9, 490, ICD10: J32.9, J40 -Symptoms x1 month - + smoker and wheezing. - RX for Augmentin, prednisone, inhaler - Will begin treatment with Augmentin 875 mg PO BID for 5 days - Supportive care with plenty of fluids, rest, and analgesia prn. Diagnosis and treatment plan were discussed and questions were answered to the patient's satisfaction. Pt acknowledged understanding of concepts and follow up plan. Specific signs and symptoms that would indicate the need for higher level of care were discussed in detail warranting prompt ER evaluation. MARYSOL Duff documented in this encounter [facility] 01-22-2023 Miscellaneous Notes Pt requested autism evaluation resources. documented in this encounter [facility] 01-07-2023 Note HNO ID: [id number] Author: Samaria Singh APRN.BOROUGH COORDINATOR Service: ? Author Type: Nurse Practitioner Type: Progress Notes Filed: 01/07/2023 9:58 AM Note Text: PSYC FOLLOW UP - PSYCHIATRIC PROGRESS NOTE DIAGNOSIS: OCD PTSD, chronic Borderline personality disorder GAF: -60-51 Moderate symptoms or moderate difficulty in social, occupational or school functioning. TREATMENT PLAN: Gradually increase nortriptyline dose to address anxiety symptoms. Continue prazosin at the same dose. Encouraged to schedule a visit with Dr. López for OCD related psychotherapy. Follow-up in April. Medication Update: Nortriptyline 50 mg-take 1 capsule every night at bedtime for 14 days, then take 2 capsules every night at bedtime after that. Continue prazosin at the same dose of 3 mg total. The effects and side effects of all the medications were reviewed in detail with the patient. She is in agreement with the treatment plan. She is aware to reach out with any questions, concerns, or worsening of symptoms prior to the next appointment. CC: Follow-up for psychiatric medication management With the patient consent, visit was performed virtually. I have communicated my name and active licensure. The patient's identity and physical location were verified at the time of this visit. Either the patient or their legal senior customer service representative has been informed of the risks and benefits of -- and alternatives to -- treatment through a remote evaluation and consents to proceed with the evaluation remotely. HPI: Jessica Prieto is a 32 year old Female with a history of OCD, PTSD, and borderline personality disorder presenting today for follow-up. Date of last visit: 12/25/2022 Plan from last visit: Increase Prazosin to help with nightmares related to trauma. Increase Nortriptyline to help with anxiety symptoms. Schedule an appointment for individual psychotherapy with Dr. Jackie López. Follow up in 2 weeks. Today Jessica shares that she has tolerated the increase in Nortriptyline. She is able to focus better and she is getting more things done. She is feeling less overwhelmed and notices a significant improvement in that compared to starting the medication. She has been concerned about some irritability being unmasked as anxiety has improved. She has been getting frustrated easily if she is not able to do the things that she needs to. She has recently moved and has a lot of work to do. In her busy schedule, she has not made time to schedule another visit with Dr. López. We discussed the importance of psychotherapy. She is open to scheduling a follow-up visit. She has noticed a shift in the way that she is parenting. Her apprehensive anxiety has improved. She is no longer taking decisions just based on her past experiences and trauma. She is going to sleep and not experiencing trauma related nightmares. She does not feel overly sedated. Denies any side effects from the prazosin. Interval Progress: Improved Risks and benefits of the medication, including any black box warnings, were discussed with the patient. Social History: See HPI PATIENT DATA: Generalized Anxiety Disorder Scale (MITCHELL-7) MITCHELL - 7 SCORES 12/02/2022 12/02/2022 01/07/2023 MITCHELL-7 Score 21 21 15 (0-4) minimal anxiety, (5-9) mild anxiety, (10-14) moderate anxiety, (15-21) severe anxiety Patient Health Questionnaire (PHQ-9) PHQ-9 12/02/2022 12/25/2022 01/07/2023 Score 8 10 7 (0-4) minimal depression, (5-9) mild depression, (10-14) moderate depression, (15-19) moderately severe depression, (20-27) severe depression ROS: See HPI General: Negative for fever, malaise, unintentional weight loss HEENT: Negative for recent changes in vision or hearing, no nasal drainage Respiratory: Negative for cough, wheezing or SOB Cardiovascular: Negative for chest pain GI: Negative for nausea, vomiting, change in bowel habits MUSCULOSKELETAL: Negative for acute back or joint pain SKIN: Negative for rash NEURO: Negative for headaches, seizures, focal neurological deficits All other systems negative. VITAL SIGNS: BP Temp Pulse Resp SpO2 MENTAL STATUS EXAMINATION: Appearance: Appropriately groomed, appears stated age Behavior: Appropriately engaged Psychomotor: No psychomotor agitation Cognition Level of Consciousness: Awake and alert. No fluctuation in wakefulness. Orientation: Grossly oriented Memory: Intact Attention/Concentration: Good Fund of Knowledge: Able to demonstrate an awareness of current events. Mood: Euthymic Affect: Congruent to mood Speech/Language: Appropriate tone, prosody, sandy, phonetics, and syntax Thought Form: Goal-directed. No loosening of associations. Thought Content: No delusions noted or endorsed. Perceptual Disturbances: Did not appear to respond to auditory stimuli. Safety: Suicidal Ideations: No suicidal ideation, intent or plan. Homicidal Ideations: No homicidal ideatio (more content not included)... [facility] 12-25-2022 Note HNO ID: [id number] Author: Samaria Singh APRN.BOROUGH COORDINATOR Service: ? Author Type: Nurse Practitioner Type: Progress Notes Filed: 12/25/2022 2:28 PM Note Text: PSYC FOLLOW UP - PSYCHIATRIC PROGRESS NOTE DIAGNOSIS: PTSD, Chronic OCD Borderline Personality Disorder GAF: -60-51 Moderate symptoms or moderate difficulty in social, occupational or school functioning. TREATMENT PLAN: Increase Prazosin to help with nightmares related to trauma. Increase Nortriptyline to help with anxiety symptoms. Schedule an appointment for individual psychotherapy with Dr. Jackie López. Follow up in 2 weeks. Medication Update: Prazosin 2 mg - take 1 capsule every night at bedtime; take along with 1 mg capsule. Prazosin 1 mg - take 1 capsule every night at bedtime; take with 2 mg dose. Nortriptyline 25 mg - take 1 capsule every night at bedtime. The effects and side effects of all the medications were reviewed in detail with the patient. She is in agreement with the treatment plan and aware to reach out with any questions, concerns, or worsening of symptoms prior to the next appointment. CC: Follow up for psychiatric medication management. With the patient consent, visit was performed virtually. I have communicated my name and active licensure. The patient's identity and physical location were verified at the time of this visit. Either the patient or their legal senior customer service representative has been informed of the risks and benefits of -- and alternatives to -- treatment through a remote evaluation and consents to proceed with the evaluation remotely. HPI: Jessica Prieto is a 32 year old Female with a history of PTSD, OCD, and borderline personality disorder presenting today for follow-up. Date of last visit: 12/02/2022 Plan from last visit: Increase Prazosin to address trauma related nightmares. Start Nortriptyline to help with anxiety symptoms. Has an intake scheduled tomorrow with Dr. López regarding the OCD group. Follow up in 2 weeks. Encouraged to provide an update regarding Nortriptyline via [employer] in 1 week due to history of experiencing anxiety related to taking new medications. Today Jessica shares that she is doing well. She has noticed that her sleep and nightmares have been the same even with the increase in Prazosin. She has been able to fall asleep but struggles with interrupted sleep. She has noticed that Nortriptyline has helped reduce her anxiety in 2 separate situations. She denies any side effects from the Nortriptyline and Prazosin. She did complete the intake with Dr. López. The group option maybe hard due to her child welfare consultant limitations but she is looking forward to setting up individual appointment for therapy. She has been able to reduce her apprehension about the medications and is willing to try an increase in doses. Interval Progress: Slightly improved Risks and benefits of the medication, including any black box warnings, were discussed with the patient. Social History: See HPI PATIENT DATA: Generalized Anxiety Disorder Scale (MITCHELL-7) MITCHELL - 7 SCORES 10/23/2022 12/02/2022 12/02/2022 MITCHELL-7 Score 21 21 21 (0-4) minimal anxiety, (5-9) mild anxiety, (10-14) moderate anxiety, (15-21) severe anxiety Patient Health Questionnaire (PHQ-9) PHQ-9 12/02/2022 12/02/2022 12/25/2022 Score 8 8 10 (0-4) minimal depression, (5-9) mild depression, (10-14) moderate depression, (15-19) moderately severe depression, (20-27) severe depression ROS: General: Negative for fever, malaise, unintentional weight loss HEENT: Negative for recent changes in vision or hearing, no nasal drainage Respiratory: Negative for cough, wheezing or SOB Cardiovascular: Negative for chest pain GI: Negative for nausea, vomiting, change in bowel habits MUSCULOSKELETAL: Negative for acute back or joint pain SKIN: Negative for rash NEURO: Negative for headaches, seizures, focal neurological deficits All other systems negative. VITAL SIGNS: BP Temp Pulse Resp SpO2 MENTAL STATUS EXAMINATION: Appearance: Appropriately groomed, appears stated age Behavior: Appropriately engaged Psychomotor: No psychomotor agitation Cognition Level of Consciousness: Awake and alert. No fluctuation in wakefulness. Orientation: Grossly oriented Memory: Intact Attention/Concentration: Good Fund of Knowledge: Able to demonstrate an awareness of current events. Mood: Euthymic Affect: Congruent to mood Speech/Language: Appropriate tone, prosody, sandy, phonetics, and syntax Thought Form: Goal-directed. No loosening of associations. Thought Content: No delusions noted or endorsed. Perceptual Disturbances: Did not appear to respond to auditory stimuli. Safety: Suicidal Ideations: No suicidal ideation, intent or plan. Homicidal Ideations: No homicidal ideation, intent or plan. Insight: Appropriate Judgment: Appropriate I spent a total of 36 minutes on the date of the service which (more content not included)... [facility] 12-03-2022 Note HNO ID: [id number] Author: Jackie López PSYD Service: ? Author Type: Psychologist Type: Progress Notes Filed: 12/09/2022 9:54 AM Note Text: GENERAL PSYCHOLOGY Patient was seen for an initial evaluation. All information is from Patient report except when noted. This evaluation is NOT intended for forensic, disability or child custody purposes. Visit Type: virtual visit The patient e-signed the Informed Consent for Psychological Evaluation AND Care Form, and the behavioral health care insurance benefits, fees for service, emergency procedures, and the limits of confidentiality that may pertain with any given case were disclosed to the patient. The patient was given a copy of the consent form on [employer]. The patient consented to a virtual visit and their location was confirmed. Location: home in [place] Privacy concerns related to pt's present environment discussed: yes Telehealth Risk Benefit Analysis A) Consistency of presenting problem with use of telehealth services: Pt presenting with symptoms of PTSD and OCD which appear amenable to telehealth. B) Client knowledge and skills to use technology: She appeared to have the knowledge and skills to participate in telehealth. 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 PONV (postoperative nausea and vomiting) depression Thymoma THYMOLIPOMA Thyroid disease PAST SURGICAL HISTORY Procedure Laterality Date ADENOIDECTOMY PRIMARY Adenoidectomy w/ tonsils DELIVERY ONLY , low transverse DELIVERY ONLY , low transverse DELIVERY ONLY 06/02/2017 DELIVERY ONLY DELIVERY ONLY 07/15/2021 LTCS COLONOSCOPY GEN ANES Colonoscopy and endoscopy DANDC (INCOMPLETE AB), ANY TRIMESTER LAPAROSCOPY SURG CHOLECYSTECTOMY 09/19/2012 LAPS SURG CHOLECYSTECTOMY W/CHOLANGIOGRAPHY `09-19-12 MIRENA 05/13/2022 8 yr SALPINGECTOMY Bilateral 07/15/2021 THORACOTOMY, CYST REMOVAL 2006, 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, 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 TONSILLECTOMY PRIMARY/SECONDARY Tonsillectomy w/ adenoids Current Outpatient Medications Medication Sig prazosin (MINIPRESS) 2 mg cap Take 1 capsule by mouth daily at bedtime. nortriptyline (PAMELOR) 10 mg capsule Take 1 capsule by mouth daily at bedtime. EPINEPHrine (EPIPEN) 0.3 mg/0.3 mL auto-injector Inject 0.3 mL intramuscularly as needed (For allergic reaction). Use as directed No current facility-administered medications for this visit. ALLERGIES Allergen Reactions Cats Anaphylaxis Gentamicin Other: See Comments hearing loss Grass Pollen Hives REFERRAL SOURCE: Psychiatry provider - Samaria Singh, REJECT OPENER-BOROUGH COORDINATOR CHIEF COMPLAINT: anxiety HPI: Tried two medications, panicked when started them Minipress for nightmares Reports ?crippling anxiety? Impacts social life Social settings are very difficult, meeting new people difficult Really high level of anxiety, dealing with day to day activities, managing tasks Anxiety got worse with COVID Prior to this there were issues but she was functioning Does better with an outlet - school worked really well for her Put school on hold with COVID and has not restarted, not sure if will continue same trajectory Was in accelerated program, just shy of getting bachelor's More isolated, and will actively avoid social situations because of anxiety, will have it days prior People make her uncomfortable, fear of embarrassing herself or someone else, feels afraid she will do something socially inappropriate Has obsessive/intrusive thinking: fears of something happening to her kids, ALSO can convince herself she is insane This influences how she parents Has the thoughts all the time: will think about one of the car doors opening and a child falling out, fear a child will fall in the playground Combats thoughts by keeping ?unbelievably busy? Gets overstimulated Has past trauma: both siblings are and she was there when brother All her childhood she had IEPs Needed accommodations on assignments because of anxiety Did personality testing and was dx with borderline PD, does have a hard time regulating emotions because of overwhelm Wonders about high functioning autism Sleep: Nightmares and sleep are both big problems Interest: good Guilt: a bit Energy: fluctuates with mood or stress Concentration: fluctuates Appetite: no complaints today Psychomotor activity: psychomotor activity was WNL. Suicide: History of suicid (more content not included)... [facility] 12-02-2022 Note HNO ID: [id number] Author: Samaria Singh APRN.BOROUGH COORDINATOR Service: ? Author Type: Nurse Practitioner Type: Progress Notes Filed: 12/09/2022 11:25 PM Note Text: PSYC FOLLOW UP - PSYCHIATRIC PROGRESS NOTE DIAGNOSIS: OCD PTSD Borderline Personality Disorder GAF: -60-51 Moderate symptoms or moderate difficulty in social, occupational or school functioning. TREATMENT PLAN: Increase Prazosin to address trauma related nightmares. Start Nortriptyline to help with anxiety symptoms. Has an intake scheduled tomorrow with Dr. López regarding the OCD group. Follow up in 2 weeks. Encouraged to provide an update regarding Nortriptyline via Baccar[employer]art in 1 week due to history of experiencing anxiety related to taking new medications. Medication Update: Prazosin 2 mg - take 1 capsule at bedtime. Nortriptyline 10 mg - take 1 capsule once daily at bedtime. The effects and side effects of all the medications were reviewed in detail with the patient. She is in agreement with the treatment plan and aware to reach out with any questions, concerns, or worsening of symptoms prior to the next appointment. CC: Follow up regarding anxiety With the patient consent, visit was performed virtually. I have communicated my name and active licensure. The patient's identity and physical location were verified at the time of this visit. Either the patient or their legal senior customer service representative has been informed of the risks and benefits of -- and alternatives to -- treatment through a remote evaluation and consents to proceed with the evaluation remotely. HPI: Jessica Prieto is a 31 year old Female with a history of OCD, PTSD, and Borderline Personality Disorder presenting today for follow-up. Date of last visit: 10/23/2022 Plan from last visit: Discontinue Clomipramine due to patient experiencing increasing anxiety about taking that medication. Restart Prazosin as that was helpful for her trauma related nightmares. Patient is interested in the OCD support group. Will refer the patient appropriately as she is motivated to improve her coping skills and has good insight into her thoughts and behaviors. Follow up in 4 weeks. Today Jessica shares that she forgot about the appointment. The prazosin helps her fall asleep but it is not keeping her asleep. She is still waking up from the nightmares. She has been comfortable with accepting Prazosin. She is willing to try a higher dose of Prazosin. She has an appointment with Dr. López tomorrow regarding intake for the OCD support group. Shares that she has been having difficulty keeping track of tasks and time. Has been struggling more in the past month. She has been getting distracted with everything else that she has to do. She feels that she is very anxious and life has been chaotic. Has tried SSRIs and SNRIs but reports not responding well to them. Benzos were not helpful and were sedating. Wellbutrin caused hallucination. Interval Progress: Slightly improved Risks and benefits of the medication, including any black box warnings, were discussed with the patient. Social History: See HPI PATIENT DATA: Generalized Anxiety Disorder Scale (MITCHELL-7) MITCHELL - 7 SCORES 10/23/2022 12/02/2022 12/02/2022 MITCHELL-7 Score 21 21 21 (0-4) minimal anxiety, (5-9) mild anxiety, (10-14) moderate anxiety, (15-21) severe anxiety Patient Health Questionnaire (PHQ-9) PHQ-9 10/19/2022 12/02/2022 12/02/2022 Score 16 8 8 (0-4) minimal depression, (5-9) mild depression, (10-14) moderate depression, (15-19) moderately severe depression, (20-27) severe depression ROS: See HPI General: Negative for fever, malaise, unintentional weight loss HEENT: Negative for recent changes in vision or hearing, no nasal drainage Respiratory: Negative for cough, wheezing or SOB Cardiovascular: Negative for chest pain GI: Negative for nausea, vomiting, change in bowel habits MUSCULOSKELETAL: Negative for acute back or joint pain SKIN: Negative for rash NEURO: Negative for headaches, seizures, focal neurological deficits All other systems negative. VITAL SIGNS: BP Temp Pulse Resp SpO2 MENTAL STATUS EXAMINATION: Appearance: Appropriately groomed, appears stated age Behavior: Appropriately engaged Psychomotor: No psychomotor agitation Cognition Level of Consciousness: Awake and alert. No fluctuation in wakefulness. Orientation: Grossly oriented Memory: Intact Attention/Concentration: Good Fund of Knowledge: Able to demonstrate an awareness of current events. Mood: Anxious Affect: Congruent to mood Speech/Language: Appropriate tone, prosody, sandy, phonetics, and syntax Thought Form: Goal-directed. No loosening of associations. Thought Content: No delusions noted or endorsed. Perceptual Disturbances: Did not appear to respond to auditory stimuli. Safety: Suicidal Ideations: No suicidal ideation, intent or plan. Homicidal Ideations: No homicidal ideation, (more content not included)... [facility] 12-02-2022 Instructions Samaria Singh APRN.CNP - 12/02/2022 2:23 PM EDT Salvador Lopez, It was good to talk with you today. Below is a summary of the plan that we discussed during your appointment for reference. Of course, if you have any questions or concerns do not hesitate to reach out to me via a message or call. Best, Samaria Singh APRN.CNP PLAN AND FOLLOW UP: YOU SHOULD SEEK IMMEDIATE MEDICAL ATTENTION AT THE NEAREST EMERGENCY DEPARTMENT OR BY CALLING 911, IF ANY OF THE FOLLOWING OCCURS: - New or worsening thoughts of harming yourself (suicidal thoughts) or others (homicidal thoughts) - Not feeling safe at home or worrying about your ability to remain safe at home If you are having thoughts of harming yourself or others, then you can: - Call the National Suicide Hotline at 9-979-QIRQIVL ( ) or 7-057-162-TALK (4286) - Text 4HOPE to 480300 Medication Update: Prazosin 2 mg - take 1 capsule at bedtime. Nortriptyline 10 mg - take 1 capsule once daily at bedtime. Next appointment: December 18 at 2 pm Virtual -- Please call my nurse Rosa Elena at [phone] or send me a message in [employer] with any questions or concerns between appointments. documented in this encounter [facility] 12-02-2022 History of Presen t illness Narrative Images from the original note were not included. PSYC FOLLOW UP - PSYCHIATRIC PROGRESS NOTE DIAGNOSIS: OCD PTSD Borderline Personality Disorder GAF: -60-51 Moderate symptoms or moderate difficulty in social, occupational or school functioning. TREATMENT PLAN: Increase Prazosin to address trauma related nightmares. Start Nortriptyline to help with anxiety symptoms. Has an intake scheduled tomorrow with Dr. López regarding the OCD group. Follow up in 2 weeks. Encouraged to provide an update regarding Nortriptyline via [employer]art in 1 week due to history of experiencing anxiety related to taking new medications. Medication Update: Prazosin 2 mg - take 1 capsule at bedtime. Nortriptyline 10 mg - take 1 capsule once daily at bedtime. The effects and side effects of all the medications were reviewed in detail with the patient. She is in agreement with the treatment plan and aware to reach out with any questions, concerns, or worsening of symptoms prior to the next appointment. CC: Follow up regarding anxiety With the patient consent, visit was performed virtually. I have communicated my name and active licensure. The patient's identity and physical location were verified at the time of this visit. Either the patient or their legal senior customer service representative has been informed of the risks and benefits of -- and alternatives to -- treatment through a remote evaluation and consents to proceed with the evaluation remotely. HPI: Jessica Prieto is a 31 year old Female with a history of OCD, PTSD, and Borderline Personality Disorder presenting today for follow-up. Date of last visit: 10/23/2022 Plan from last visit: Discontinue Clomipramine due to patient experiencing increasing anxiety about taking that medication. Restart Prazosin as that was helpful for her trauma related nightmares. Patient is interested in the OCD support group. Will refer the patient appropriately as she is motivated to improve her coping skills and has good insight into her thoughts and behaviors. Follow up in 4 weeks. Today Jessica shares that she forgot about the appointment. The prazosin helps her fall asleep but it is not keeping her asleep. She is still waking up from the nightmares. She has been comfortable with accepting Prazosin. She is willing to try a higher dose of Prazosin. She has an appointment with Dr. López tomorrow regarding intake for the OCD support group. Shares that she has been having difficulty keeping track of tasks and time. Has been struggling more in the past month. She has been getting distracted with everything else that she has to do. She feels that she is very anxious and life has been chaotic. Has tried SSRIs and SNRIs but reports not responding well to them. Benzos were not helpful and were sedating. Wellbutrin caused hallucination. Interval Progress: Slightly improved Risks and benefits of the medication, including any black box warnings, were discussed with the patient. Social History: See HPI PATIENT DATA: Generalized Anxiety Disorder Scale (MITCHELL-7) MITCHELL - 7 SCORES 10/23/2022 12/02/2022 12/02/2022 MITCHELL-7 Score 21 21 21 (0-4) minimal anxiety, (5-9) mild anxiety, (10-14) moderate anxiety, (15-21) severe anxiety Patient Health Questionnaire (PHQ-9) PHQ-9 10/19/2022 12/02/2022 12/02/2022 Score 16 8 8 (0-4) minimal depression, (5-9) mild depression, (10-14) moderate depression, (15-19) moderately severe depression, (20-27) severe depression ROS: See HPI General: Negative for fever, malaise, unintentional weight loss HEENT: Negative for recent changes in vision or hearing, no nasal drainage Respiratory: Negative for cough, wheezing or SOB Cardiovascular: Negative for chest pain GI: Negative for nausea, vomiting, change in bowel habits MUSCULOSKELETAL: Negative for acute back or joint pain SKIN: Negative for rash NEURO: Negative for headaches, seizures, focal neurological deficits All other systems negative. VITAL SIGNS: BP Temp Pulse Resp SpO2 MENTAL STATUS EXAMINATION: Appearance: Appropriately groomed, appears stated age Behavior: Appropriately engaged Psychomotor: No psychomotor agitation Cognition Level of Consciousness: Awake and alert. No fluctuation in wakefulness. Orientation: Grossly oriented Memory: Intact Attention/Concentration: Good Fund of Knowledge: Able to demonstrate an awareness of current events. Mood: Anxious Affect: Congruent to mood Speech/Language: Appropriate tone, prosody, sandy, phonetics, and syntax Thought Form: Goal-directed. No loosening of associations. Thought Content: No delusions noted or endorsed. Perceptual Disturbances: Did not appear to respond to auditory stimuli. Safety: Suicidal Ideations: No suicidal ideation, intent or plan. Homicidal Ideations: No homicidal ideation, intent or plan. Insight: Appropriate Judgment: Appropriate I spent a total of 28 minutes on the date of the service which included preparing to see the patient, [id number] patient care, completing clinical documentation, and counseling and educating the patient/family/caregiver, ordering medications/labs. Samaria Singh APRN.BOROUGH COORDINATOR December 02, 2022 2:00 PM This note was partially generated using Dragon voice recognition system. Note was reviewed for accuracy. There may be minor misspellings or grammar miscues with [place] voice recognition. documented in this encounter [facility] 11-18-2022 Note HNO ID: [id number] Author: Adrian Miller APRN.GERRI Service: ? Author Type: Nurse Practitioner Type: Progress Notes Filed: 11/18/2022 8:16 PM Note Text: Subjective HPI Nontoxic-appearing female presents urgent care chief plaint sore throat headache fatigue. Duration of symptoms 4 days. Associated symptoms listed above. Concerned about possible strep throat. States individuals in her household have strep throat. Has not used any OTC medications. Denies any significant pain. Most bothersome symptom is headache sore throat. Denies any trismus difficulty swallowing difficulty in secretions decreased range of motion neck. Denies any fever productive cough chest pain shortness of breath nausea vomiting abdominal pain change in bowel or bladder habits. 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 PONV (postoperative nausea and vomiting) depression Thymoma THYMOLIPOMA Thyroid disease PAST SURGICAL HISTORY Procedure Laterality Date ADENOIDECTOMY PRIMARY Adenoidectomy w/ tonsils DELIVERY ONLY , low transverse DELIVERY ONLY , low transverse DELIVERY ONLY 06/02/2017 DELIVERY ONLY DELIVERY ONLY 07/15/2021 LTCS COLONOSCOPY GEN ANES Colonoscopy and endoscopy DANDC (INCOMPLETE AB), ANY TRIMESTER LAPAROSCOPY SURG CHOLECYSTECTOMY 09/19/2012 LAPS SURG CHOLECYSTECTOMY W/CHOLANGIOGRAPHY `09-19-12 MIRENA 05/13/2022 8 yr SALPINGECTOMY Bilateral 07/15/2021 THORACOTOMY, CYST REMOVAL 2006, 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, 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 EPINEPHrine (EPIPEN) 0.3 mg/0.3 mL auto-injector Inject 0.3 mL intramuscularly as needed (For allergic reaction). Use as directed FAMILY HISTORY Problem Relation Age of Onset Anxiety disorder Mother Post-Traumatic Stress Disorder Mother Alcohol/Drug Mother DRUG Psychiatry Mother PTSD,ANXIET/DEPRESSION Heart Mother Cancer Mother Melanoma Depression Sister Suicide / Suicidal Behaviors Sister Cancer Brother Melanoma Alcohol/Drug Maternal Aunt DRUG Thyroid Maternal Aunt Cancer Maternal Grandmother Heart Maternal Grandmother Alcohol/Drug Maternal Grandfather ETOH Cancer Maternal Grandfather LUNG Bipolar disorder Daughter ADD/ADHD Daughter Asthma Daughter No Known Problems Son No Known Problems Son Social History Tobacco Use Smoking status: Every Day Packs/day: 1.00 Years: 15.00 Pack years: 15.00 Types: Cigarettes Smokeless tobacco: Never Vaping Use Vaping Use: Never used Substance Use Topics Alcohol use: No Drug use: Yes Types: Marijuana Comment: Socially- perhpas once monthly BP 108/80 Pulse 101 Temp 37.1 ?C (98.8 ?F) Resp 18 Wt 65.9 kg (145 lb 3.2 oz) LMP (LMP Unknown) SpO2 98% BMI 26.56 kg/m? Hr 82 Review of Systems Constitutional: Positive for malaise/fatigue. Negative for chills and fever. HENT: Positive for congestion and sore throat. Negative for ear discharge, ear pain and sinus pain. Eyes: Negative for blurred vision, pain, discharge and redness. Respiratory: Negative for cough, hemoptysis, sputum production, shortness of breath, wheezing and stridor. Cardiovascular: Negative for chest pain. Gastrointestinal: Negative for abdominal pain, diarrhea, nausea and vomiting. Musculoskeletal: Positive for myalgias. Skin: Negative for itching and rash. Neurological: Positive for headaches. Negative for dizziness. Objective Physical Exam Constitutional: General: She is not in acute distress. Appearance: She is not diaphoretic. HENT: Head: Normocephalic. Jaw: No trismus, tenderness, swelling or pain on movement. Mouth/Throat: Lips: [place]. Mouth: Mucous membranes are moist. Pharynx: Oropharynx is clear. Uvula midline. No pharyngeal swelling, oropharyngeal exudate, posterior oropharyngeal erythema or uvula swelling. Eyes: Conjunctiva/sclera: Conjunctivae normal. Pupils: Pupils are equal, round, and reactive to light. Cardiovascular: Rate and Rhythm: Normal rate and regular rhythm. Heart sounds: Normal heart sounds. Pulmonary: Effort: Pulmonary effort is normal. No tachypnea, accessory muscle usage or respiratory distress. Breath sounds: Normal breath sounds. No stridor. No wheezing, rhonchi or rales. Abdominal: Palpations: Abd (more content not included)... [facility] 11-18-2022 History of Presen t illness Narrative Subjective HPI Nontoxic-appearing female presents urgent care chief plaint sore throat headache fatigue. Duration of symptoms 4 days. Associated symptoms listed above. Concerned about possible strep throat. States individuals in her household have strep throat. Has not used any OTC medications. Denies any significant pain. Most bothersome symptom is headache sore throat. Denies any trismus difficulty swallowing difficulty in secretions decreased range of motion neck. Denies any fever productive cough chest pain shortness of breath nausea vomiting abdominal pain change in bowel or bladder habits. 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 PONV (postoperative nausea and vomiting) depression Thymoma THYMOLIPOMA Thyroid disease PAST SURGICAL HISTORY Procedure Laterality Date ADENOIDECTOMY PRIMARY <AGE 12 Adenoidectomy w/ tonsils DELIVERY ONLY , low transverse DELIVERY ONLY , low transverse DELIVERY ONLY 06/02/2017 DELIVERY ONLY DELIVERY ONLY 07/15/2021 LTCS COLONOSCOPY GEN ANES Colonoscopy and endoscopy D&C (INCOMPLETE AB), ANY TRIMESTER LAPAROSCOPY SURG CHOLECYSTECTOMY 09/19/2012 LAPS SURG CHOLECYSTECTOMY W/CHOLANGIOGRAPHY `09-19-12 MIRENA 05/13/2022 8 yr SALPINGECTOMY Bilateral 07/15/2021 THORACOTOMY, CYST REMOVAL 2006, 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, 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 EPINEPHrine (EPIPEN) 0.3 mg/0.3 mL auto-injector Inject 0.3 mL intramuscularly as needed (For allergic reaction). Use as directed FAMILY HISTORY Problem Relation Age of Onset Anxiety disorder Mother Post-Traumatic Stress Disorder Mother Alcohol/Drug Mother DRUG Psychiatry Mother PTSD,ANXIET/DEPRESSION Heart Mother Cancer Mother Melanoma Depression Sister Suicide / Suicidal Behaviors Sister Cancer Brother Melanoma Alcohol/Drug Maternal Aunt DRUG Thyroid Maternal Aunt Cancer Maternal Grandmother Heart Maternal Grandmother Alcohol/Drug Maternal Grandfather ETOH Cancer Maternal Grandfather LUNG Bipolar disorder Daughter ADD/ADHD Daughter Asthma Daughter No Known Problems Son No Known Problems Son Social History Tobacco Use Smoking status: Every Day Packs/day: 1.00 Years: 15.00 Pack years: 15.00 Types: Cigarettes Smokeless tobacco: Never Vaping Use Vaping Use: Never used Substance Use Topics Alcohol use: No Drug use: Yes Types: Marijuana Comment: Socially- perhpas once monthly BP 108/80 Pulse 101 Temp 37.1 C (98.8 F) Resp 18 Wt 65.9 kg (145 lb 3.2 oz) LMP (LMP Unknown) SpO2 98% BMI 26.56 kg/m Hr 82 Review of Systems Constitutional: Positive for malaise/fatigue. Negative for chills and fever. HENT: Positive for congestion and sore throat. Negative for ear discharge, ear pain and sinus pain. Eyes: Negative for blurred vision, pain, discharge and redness. Respiratory: Negative for cough, hemoptysis, sputum production, shortness of breath, wheezing and stridor. Cardiovascular: Negative for chest pain. Gastrointestinal: Negative for abdominal pain, diarrhea, nausea and vomiting. Musculoskeletal: Positive for myalgias. Skin: Negative for itching and rash. Neurological: Positive for headaches. Negative for dizziness. Objective Physical Exam Constitutional: General: She is not in acute distress. Appearance: She is not diaphoretic. HENT: Head: Normocephalic. Jaw: No trismus, tenderness, swelling or pain on movement. Mouth/Throat: Lips: [place]. Mouth: Mucous membranes are moist. Pharynx: Oropharynx is clear. Uvula midline. No pharyngeal swelling, oropharyngeal exudate, posterior oropharyngeal erythema or uvula swelling. Eyes: Conjunctiva/sclera: Conjunctivae normal. Pupils: Pupils are equal, round, and reactive to light. Cardiovascular: Rate and Rhythm: Normal rate and regular rhythm. Heart sounds: Normal heart sounds. Pulmonary: Effort: Pulmonary effort is normal. No tachypnea, accessory muscle usage or respiratory distress. Breath sounds: Normal breath sounds. No stridor. No wheezing, rhonchi or rales. Abdominal: Palpations: Abdomen is soft. Tenderness: There is no abdominal tenderness. Musculoskeletal: Cervical back: Normal range of motion and neck supple. No rigidity or tenderness. Lymphadenopathy: Cervical: No cervical adenopathy. Skin: General: Skin is warm and dry. Neurological: Mental Status: She is alert and oriented to person, place, and time. ASSESSMENT/PLAN: 1. Sore throat - ICD9: 462, ICD10: J02.9 (primary diagnosis) - STREP A MOLECULAR (POC) - COVID WITH FLUA+B, ROUTINE 2. Viral illness - ICD9: 079.99, ICD10: B34.9 - COVID WITH FLUA+B, ROUTINE Strep test negative. Suspicious of viral etiology. Test for COVID-19 and influenza. Patient was educated on supportive therapies. Patient will follow up with primary care provider as needed. Patient was instructed to immediately proceed to emergency room for any new, worsening, or symptoms lasting longer than anticipated. The patient's clinical presentation is otherwise unremarkable at this time. Based on exam and clinical finding, the patient is stable for discharge. Plan of care was discussed with patient. Patient verbalizes understanding and agrees to plan of care. This note was generated using Sape software. It may contain errors in wording, punctuation, or spelling. Adrian Miller APRN.GERRI documented in this encounter [facility] 11-16-2022 Note HNO ID: [id number] Author: MARYSOL Duff Service: ? Author Type: Physician Bridge Crane Operator Type: Progress Notes Filed: 11/16/2022 12:56 PM Note Text: This note was created using LessThan3. Subjective Jessica Prieto is a 31 year old female. HPI 31-year-old female presents for sore throat, headache, nausea for the past 3 days. States one of her children was sick with strep about 2 weeks ago. Patient denies any vomiting or diarrhea, she states that she feels nauseous. She has had headaches and felt feverish. He did not actually take her temperature. She denies any abdominal pain. No concern for . No cough. 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 PONV (postoperative nausea and vomiting) depression Thymoma THYMOLIPOMA Thyroid disease PAST SURGICAL HISTORY Procedure Laterality Date ADENOIDECTOMY PRIMARY Adenoidectomy w/ tonsils DELIVERY ONLY , low transverse DELIVERY ONLY , low transverse DELIVERY ONLY 06/02/2017 DELIVERY ONLY DELIVERY ONLY 07/15/2021 [facility] COLONOSCOPY GEN ANES Colonoscopy and endoscopy DANDC (INCOMPLETE AB), ANY TRIMESTER LAPAROSCOPY SURG CHOLECYSTECTOMY 09/19/2012 LAPS SURG CHOLECYSTECTOMY W/CHOLANGIOGRAPHY `09-19-12 MIRENA 05/13/2022 8 yr SALPINGECTOMY Bilateral 07/15/2021 THORACOTOMY, CYST REMOVAL 2006, 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, 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 EPINEPHrine (EPIPEN) 0.3 mg/0.3 mL auto-injector Inject 0.3 mL intramuscularly as needed (For allergic reaction). Use as directed FAMILY HISTORY Problem Relation Age of Onset Anxiety disorder Mother Post-Traumatic Stress Disorder Mother Alcohol/Drug Mother DRUG Psychiatry Mother PTSD,ANXIET/DEPRESSION Heart Mother Cancer Mother Melanoma Depression Sister Suicide / Suicidal Behaviors Sister Cancer Brother Melanoma Alcohol/Drug Maternal Aunt DRUG Thyroid Maternal Aunt Cancer Maternal Grandmother Heart Maternal Grandmother Alcohol/Drug Maternal Grandfather ETOH Cancer Maternal Grandfather LUNG Bipolar disorder Daughter ADD/ADHD Daughter Asthma Daughter No Known Problems Son No Known Problems Son Social History Tobacco Use Smoking status: Every Day Packs/day: 1.00 Years: 15.00 Pack years: 15.00 Types: Cigarettes Smokeless tobacco: Never Vaping Use Vaping Use: Never used Substance Use Topics Alcohol use: No Drug use: Yes Types: Marijuana Comment: Socially- perhpas once monthly Review of Systems Constitutional: Positive for chills. Negative for fever (felt feverish). HENT: Positive for sore throat. Negative for congestion and ear pain. Respiratory: Negative for cough and shortness of breath. Cardiovascular: Negative for chest pain. Gastrointestinal: Positive for nausea. Negative for diarrhea and vomiting. Neurological: Positive for headaches. Objective BP 110/80 Pulse 76 Temp 36.8 ?C (98.2 ?F) Resp 18 Wt 67.8 kg (149 lb 6.4 oz) LMP (LMP Unknown) SpO2 100% BMI 27.33 kg/m? Physical Exam Vitals and nursing note reviewed. Constitutional: General: She is not in acute distress. Appearance: Normal appearance. She is not toxic-appearing. HENT: Right Ear: Tympanic membrane and ear canal normal. Left Ear: Tympanic membrane and ear canal normal. Nose: Nose normal. Mouth/Throat: Mouth: Mucous membranes are moist. Pharynx: Uvula midline. Posterior oropharyngeal erythema present. No oropharyngeal exudate. Tonsils: No tonsillar exudate. 1+ on the right. 1+ on the left. Eyes: Conjunctiva/sclera: Conjunctivae normal. Cardiovascular: Rate and Rhythm: Normal rate and regular rhythm. Pulmonary: Effort: Pulmonary effort is normal. Breath sounds: Normal breath sounds. Neurological: Mental Status: She is alert. Assessment and Plan ASSESSMENT/PLAN: 1. URI, acute - ICD9: 465.9, ICD10: J06.9 (primary diagnosis) - Discussed viral etiology and rationale for treatment. - Symptomatic treatment with prn analgesia - Supportive care with fluids and rest - COVID WITH FLUA+B, ROUTINE - out of window for Tamiflu 2. Sore throat - ICD9: 462, ICD10: J02.9 - suspect viral - Alere Strep Test negative, no culture pending - Discussed supportive care treatment with fluids, rest and analgesia. - STREP A MOLECULAR (POC) Diagnosis and treatment plan were discussed and questions were answered to the patient's satisfaction. (more content not included)... [facility] 11-16-2022 History of Presen t illness Narrative This note was created using NoteWriter. Subjective Jessica Prieto is a 31 year old female. HPI 31-year-old female presents for sore throat, headache, nausea for the past 3 days. States one of her children was sick with strep about 2 weeks ago. Patient denies any vomiting or diarrhea, she states that she feels nauseous. She has had headaches and felt feverish. He did not actually take her temperature. She denies any abdominal pain. No concern for . No cough. 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 PONV (postoperative nausea and vomiting) depression Thymoma THYMOLIPOMA Thyroid disease PAST SURGICAL HISTORY Procedure Laterality Date ADENOIDECTOMY PRIMARY <AGE 12 Adenoidectomy w/ tonsils DELIVERY ONLY , low transverse DELIVERY ONLY , low transverse DELIVERY ONLY 06/02/2017 DELIVERY ONLY DELIVERY ONLY 07/15/2021 [facility] COLONOSCOPY GEN ANES Colonoscopy and endoscopy D&C (INCOMPLETE AB), ANY TRIMESTER LAPAROSCOPY SURG CHOLECYSTECTOMY 09/19/2012 LAPS SURG CHOLECYSTECTOMY W/CHOLANGIOGRAPHY `09-19-12 MIRENA 05/13/2022 8 yr SALPINGECTOMY Bilateral 07/15/2021 THORACOTOMY, CYST REMOVAL 2006, 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, 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 EPINEPHrine (EPIPEN) 0.3 mg/0.3 mL auto-injector Inject 0.3 mL intramuscularly as needed (For allergic reaction). Use as directed FAMILY HISTORY Problem Relation Age of Onset Anxiety disorder Mother Post-Traumatic Stress Disorder Mother Alcohol/Drug Mother DRUG Psychiatry Mother PTSD,ANXIET/DEPRESSION Heart Mother Cancer Mother Melanoma Depression Sister Suicide / Suicidal Behaviors Sister Cancer Brother Melanoma Alcohol/Drug Maternal Aunt DRUG Thyroid Maternal Aunt Cancer Maternal Grandmother Heart Maternal Grandmother Alcohol/Drug Maternal Grandfather ETOH Cancer Maternal Grandfather LUNG Bipolar disorder Daughter ADD/ADHD Daughter Asthma Daughter No Known Problems Son No Known Problems Son Social History Tobacco Use Smoking status: Every Day Packs/day: 1.00 Years: 15.00 Pack years: 15.00 Types: Cigarettes Smokeless tobacco: Never Vaping Use Vaping Use: Never used Substance Use Topics Alcohol use: No Drug use: Yes Types: Marijuana Comment: Socially- perhpas once monthly Review of Systems Constitutional: Positive for chills. Negative for fever (felt feverish). HENT: Positive for sore throat. Negative for congestion and ear pain. Respiratory: Negative for cough and shortness of breath. Cardiovascular: Negative for chest pain. Gastrointestinal: Positive for nausea. Negative for diarrhea and vomiting. Neurological: Positive for headaches. Objective BP 110/80 Pulse 76 Temp 36.8 C (98.2 F) Resp 18 Wt 67.8 kg (149 lb 6.4 oz) LMP (LMP Unknown) SpO2 100% BMI 27.33 kg/m Physical Exam Vitals and nursing note reviewed. Constitutional: General: She is not in acute distress. Appearance: Normal appearance. She is not toxic-appearing. HENT: Right Ear: Tympanic membrane and ear canal normal. Left Ear: Tympanic membrane and ear canal normal. Nose: Nose normal. Mouth/Throat: Mouth: Mucous membranes are moist. Pharynx: Uvula midline. Posterior oropharyngeal erythema present. No oropharyngeal exudate. Tonsils: No tonsillar exudate. 1+ on the right. 1+ on the left. Eyes: Conjunctiva/sclera: Conjunctivae normal. Cardiovascular: Rate and Rhythm: Normal rate and regular rhythm. Pulmonary: Effort: Pulmonary effort is normal. Breath sounds: Normal breath sounds. Neurological: Mental Status: She is alert. Assessment and Plan ASSESSMENT/PLAN: 1. URI, acute - ICD9: 465.9, ICD10: J06.9 (primary diagnosis) - Discussed viral etiology and rationale for treatment. - Symptomatic treatment with prn analgesia - Supportive care with fluids and rest - COVID WITH FLUA+B, ROUTINE - out of window for Tamiflu 2. Sore throat - ICD9: 462, ICD10: J02.9 - suspect viral - Alere Strep Test negative, no culture pending - Discussed supportive care treatment with fluids, rest and analgesia. - STREP A MOLECULAR (POC) Diagnosis and treatment plan were discussed and questions were answered to the patient's satisfaction. Pt acknowledged understanding of concepts and follow up plan. Specific signs and symptoms that would indicate the need for higher level of care were discussed in detail warranting prompt ER evaluation. MARYSOL Duff documented in this encounter [facility] 11-02-2022 Note HNO ID: [id number] Author: Rajan Smith APRN.BOROUGH COORDINATOR Service: ? Author Type: Nurse Practitioner Type: Progress Notes Filed: 11/02/2022 3:37 PM Note Text: CC: Patient presents with: Sore Throat: bodyaches, headache x 1 day HPI: Jessica Prieto is a 31 year old female who presents to the office with complaint of sore throat for the past day. Symptoms are worsening Associated symptoms includes headache and body aches. Denies fever, nausea, vomiting , and diarrhea. Treatments tried include nothing so far. with no relief of symptoms. Sick contacts: yes both kids have strep. History of asthma, frequent episodes of bronchitis, chronic bronchitis, bronchiectasis or COPD: No Smoker: No Seasonal/environmental allergies: No The ROS is otherwise negative. The patient's pmh, medications, allergies, and past visits are reviewed. PHYSICAL EXAM: BP 120/72 Pulse 102 Temp 37.3 ?C (99.1 ?F) Resp 16 Wt 65.9 kg (145 lb 3.2 oz) LMP (LMP Unknown) SpO2 97% BMI 26.56 kg/m? General appearance: alert, cooperative, pleasant, in no acute distress Head: Normocephalic Eyes: EOM's intact, conjunctiva pink and moist, no icterus, sclera white, non-injected Ears: Right ear: External ear/canal- Normal, TM - clear with good landmarks. Left ear: External ear/canal- Normal, TM - clear with good landmarks Oropharynx:mild erythema, without exudates present Heart: Negative. RRR without obvious murmur, gallop, or rubs. No ectopy. 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 PONV (postoperative nausea and vomiting) depression Thymoma THYMOLIPOMA Thyroid disease PAST SURGICAL HISTORY Procedure Laterality Date ADENOIDECTOMY PRIMARY Adenoidectomy w/ tonsils DELIVERY ONLY , low transverse DELIVERY ONLY , low transverse DELIVERY ONLY 06/02/2017 DELIVERY ONLY DELIVERY ONLY 07/15/2021 [facility] COLONOSCOPY GEN ANES Colonoscopy and endoscopy DANDC (INCOMPLETE AB), ANY TRIMESTER LAPAROSCOPY SURG CHOLECYSTECTOMY 09/19/2012 LAPS SURG CHOLECYSTECTOMY W/CHOLANGIOGRAPHY `09-19-12 MIRENA 05/13/2022 8 yr SALPINGECTOMY Bilateral 07/15/2021 THORACOTOMY, CYST REMOVAL 2006, 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, 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 EPINEPHrine (EPIPEN) 0.3 mg/0.3 mL auto-injector Inject 0.3 mL intramuscularly as needed (For allergic reaction). Use as directed FAMILY HISTORY Problem Relation Age of Onset Anxiety disorder Mother Post-Traumatic Stress Disorder Mother Alcohol/Drug Mother DRUG Psychiatry Mother PTSD,ANXIET/DEPRESSION Heart Mother Cancer Mother Melanoma Depression Sister Suicide / Suicidal Behaviors Sister Cancer Brother Melanoma Alcohol/Drug Maternal Aunt DRUG Thyroid Maternal Aunt Cancer Maternal Grandmother Heart Maternal Grandmother Alcohol/Drug Maternal Grandfather ETOH Cancer Maternal Grandfather LUNG Bipolar disorder Daughter ADD/ADHD Daughter Asthma Daughter No Known Problems Son No Known Problems Son Social History Tobacco Use Smoking status: Every Day Packs/day: 1.00 Years: 15.00 Pack years: 15.00 Types: Cigarettes Smokeless tobacco: Never Vaping Use Vaping Use: Never used Substance Use Topics Alcohol use: No Drug use: Yes Types: Marijuana Comment: Socially- perhpas once monthly ASSESSMENT/PLAN: 1. Sore throat - ICD9: 462, ICD10: J02.9 - STREP A MOLECULAR (POC) - neg Strep vs viral uri No treatment at this time viral in nature. Potential red flag symptoms discussed with the patient. Reviewed appropriate action plan to take if red flag symptoms occur. Patient agreeable to treatment plan. Was instructed to return if symptoms persist and be retested due to exposure of strep. Rajan Smith APRN.[facility] 11-02-2022 History of Presen t illness Narrative CC: Patient presents with: Sore Throat: bodyaches, headache x 1 day HPI: Jessica Prieto is a 31 year old female who presents to the office with complaint of sore throat for the past day. Symptoms are worsening Associated symptoms includes headache and body aches. Denies fever, nausea, vomiting , and diarrhea. Treatments tried include nothing so far. with no relief of symptoms. Sick contacts: yes both kids have strep. History of asthma, frequent episodes of bronchitis, chronic bronchitis, bronchiectasis or COPD: No Smoker: No Seasonal/environmental allergies: No The ROS is otherwise negative. The patient's pmh, medications, allergies, and past visits are reviewed. PHYSICAL EXAM: BP 120/72 Pulse 102 Temp 37.3 C (99.1 F) Resp 16 Wt 65.9 kg (145 lb 3.2 oz) LMP (LMP Unknown) SpO2 97% BMI 26.56 kg/m General appearance: alert, cooperative, pleasant, in no acute distress Head: Normocephalic Eyes: EOM's intact, conjunctiva pink and moist, no icterus, sclera white, non-injected Ears: Right ear: External ear/canal- Normal, TM - clear with good landmarks. Left ear: External ear/canal- Normal, TM - clear with good landmarks Oropharynx:mild erythema, without exudates present Heart: Negative. RRR without obvious murmur, gallop, or rubs. No ectopy. 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 PONV (postoperative nausea and vomiting) depression Thymoma THYMOLIPOMA Thyroid disease PAST SURGICAL HISTORY Procedure Laterality Date ADENOIDECTOMY PRIMARY <AGE 12 Adenoidectomy w/ tonsils DELIVERY ONLY , low transverse DELIVERY ONLY , low transverse DELIVERY ONLY 06/02/2017 DELIVERY ONLY DELIVERY ONLY 07/15/2021 [facility] COLONOSCOPY GEN ANES Colonoscopy and endoscopy D&C (INCOMPLETE AB), ANY TRIMESTER LAPAROSCOPY SURG CHOLECYSTECTOMY 09/19/2012 LAPS SURG CHOLECYSTECTOMY W/CHOLANGIOGRAPHY `09-19-12 MIRENA 05/13/2022 8 yr SALPINGECTOMY Bilateral 07/15/2021 THORACOTOMY, CYST REMOVAL 2006, 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, 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 EPINEPHrine (EPIPEN) 0.3 mg/0.3 mL auto-injector Inject 0.3 mL intramuscularly as needed (For allergic reaction). Use as directed FAMILY HISTORY Problem Relation Age of Onset Anxiety disorder Mother Post-Traumatic Stress Disorder Mother Alcohol/Drug Mother DRUG Psychiatry Mother PTSD,ANXIET/DEPRESSION Heart Mother Cancer Mother Melanoma Depression Sister Suicide / Suicidal Behaviors Sister Cancer Brother Melanoma Alcohol/Drug Maternal Aunt DRUG Thyroid Maternal Aunt Cancer Maternal Grandmother Heart Maternal Grandmother Alcohol/Drug Maternal Grandfather ETOH Cancer Maternal Grandfather LUNG Bipolar disorder Daughter ADD/ADHD Daughter Asthma Daughter No Known Problems Son No Known Problems Son Social History Tobacco Use Smoking status: Every Day Packs/day: 1.00 Years: 15.00 Pack years: 15.00 Types: Cigarettes Smokeless tobacco: Never Vaping Use Vaping Use: Never used Substance Use Topics Alcohol use: No Drug use: Yes Types: Marijuana Comment: Socially- perhpas once monthly ASSESSMENT/PLAN: 1. Sore throat - ICD9: 462, ICD10: J02.9 - STREP A MOLECULAR (POC) - neg Strep vs viral uri No treatment at this time viral in nature. Potential red flag symptoms discussed with the patient. Reviewed appropriate action plan to take if red flag symptoms occur. Patient agreeable to treatment plan. Was instructed to return if symptoms persist and be retested due to exposure of strep. Rajan Smith APRN.GERRI documented in this encounter [facility] 10-29-2022 Miscellaneous Notes Pt is scheduled. Hello - this pt has been referred for an OCD assessment. Can you outreach them to schedule in my OCD SPA Intake ([facility]) slot Tuesdays at 10:30am or soonest available, any opening? Thanks! Dr. López documented in this encounter [facility] 10-23-2022 Note HNO ID: [id number] Author: Samaria Singh APRN.BOROUGH COORDINATOR Service: ? Author Type: Nurse Practitioner Type: Progress Notes Filed: 10/23/2022 5:28 PM Note Text: PSYC FOLLOW UP - PSYCHIATRIC PROGRESS NOTE DIAGNOSIS: Obsessive Compulsive Disorder PTSD, chronic Borderline Personality Disorder GAF: -60-51 Moderate symptoms or moderate difficulty in social, occupational or school functioning. TREATMENT PLAN: Discontinue Clomipramine due to patient experiencing increasing anxiety about taking that medication. Restart Prazosin as that was helpful for her trauma related nightmares. Patient is interested in the OCD support group. Will refer the patient appropriately as she is motivated to improve her coping skills and has good insight into her thoughts and behaviors. Follow up in 4 weeks. The effects and side effects of Prazosin were reviewed with her in detail. She is in agreement with the treatment plan and aware to reach out with any questions, concerns, or worsening of symptoms prior to the next appointment. CC: Follow up regarding anxiety With the patient consent, visit was performed virtually. HPI: Jessica Prieto is a 31 year old Female with a history of OCD, PTSD, and borderline personality disorder presenting today for follow-up. Date of last visit: 09/25/2022 Plan from last visit: 1. Start Clomipramine to address OCD symptoms. 2. Utilize Prazosin to help with trauma related nightmares. 3. Consult placed for DBT IOP. Today Jessica shares that she tried the Clomipramine and Prazosin. She started Clomipramine first for 2 to 3 days. She felt more anxious and had worsening suicidal thoughts. She felt it stopped her from doing anything. Then she started Prazosin and struggled with feeling overwhelmed. She is wondering if it was due to her being anxious about the medications in the first place that she experienced more anxiety in taking these medications. She worries about losing her personality if she takes medications. Would like to work on developing better coping skills. 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 Prazosin did help with her trauma related nightmares and she is willing to try it just by itself without the Clomipramine. Her daughter is 12 year old and has been on medication and has been diagnosed with Autism. She asked about Autism diagnosis for herself. She had an IEP in school. She struggles with sensory overload, social anxiety and has some repetitions. Interval Progress: Same Risks and benefits of the medication, including any black box warnings, were discussed with the patient. Social History: See HPI PATIENT DATA: Generalized Anxiety Disorder Scale (MITCHELL-7) MITCHELL - 7 SCORES 09/24/2022 10/23/2022 MITCHELL-7 Score 20 21 (0-4) minimal anxiety, (5-9) mild anxiety, (10-14) moderate anxiety, (15-21) severe anxiety Patient Health Questionnaire (PHQ-9) PHQ-9 09/24/2022 10/19/2022 10/19/2022 Score 11 16 16 (0-4) minimal depression, (5-9) mild depression, (10-14) moderate depression, (15-19) moderately severe depression, (20-27) severe depression ROS: General: Negative for fever, malaise, unintentional weight loss HEENT: Negative for recent changes in vision or hearing, no nasal drainage Respiratory: Negative for cough, wheezing or SOB Cardiovascular: Negative for chest pain GI: Negative for nausea, vomiting, change in bowel habits MUSCULOSKELETAL: Negative for acute back or joint pain SKIN: Negative for rash NEURO: Negative for headaches, seizures, focal neurological deficits All other systems negative. VITAL SIGNS: BP Temp Pulse Resp SpO2 MENTAL STATUS EXAMINATION: Appearance: Appropriately groomed, appears stated age Behavior: Appropriately engaged Psychomotor: No psychomotor agitation Cognition Level of Consciousness: Awake and alert. No fluctuation in wakefulness. Orientation: Grossly oriented Memory: Intact Attention/Concentration: Good Fund of Knowledge: Able to demonstrate an awareness of current events. Mood: Anxious Affect: Congruent to mood Speech/Language: Appropriate tone, prosody, sandy, phonetics, and syntax Thought Form: Goal-directed. No loosening of associations. Thought Content: No delusions noted or endorsed. Perceptual Disturbances: Did not appear to respond to auditory stimuli. Safety: Suicidal Ideations: No suicidal ideation, intent or plan. Homicidal Ideations: No homicidal ideation, intent or plan. Insight: Appropriate Judgment: Appropriate I spent a total of 38 minutes on the date of the service which included preparing to see the patient, [id number] patient care, completing clinical documentation, and counseling and educating the patient/family/caregiver, ordering medications/labs, and communicating with her other healthcare providers. Samaria Singh APRN.BOROUGH COORDINATOR October 23, 2022 4:27 PM This note was (more content not included)... [facility] 10-23-2022 History of Presen t illness Narrative Images from the original note were not included. PSYC FOLLOW UP - PSYCHIATRIC PROGRESS NOTE DIAGNOSIS: Obsessive Compulsive Disorder PTSD, chronic Borderline Personality Disorder GAF: -60-51 Moderate symptoms or moderate difficulty in social, occupational or school functioning. TREATMENT PLAN: Discontinue Clomipramine due to patient experiencing increasing anxiety about taking that medication. Restart Prazosin as that was helpful for her trauma related nightmares. Patient is interested in the OCD support group. Will refer the patient appropriately as she is motivated to improve her coping skills and has good insight into her thoughts and behaviors. Follow up in 4 weeks. The effects and side effects of Prazosin were reviewed with her in detail. She is in agreement with the treatment plan and aware to reach out with any questions, concerns, or worsening of symptoms prior to the next appointment. CC: Follow up regarding anxiety With the patient consent, visit was performed virtually. HPI: Jessica Prieto is a 31 year old Female with a history of OCD, PTSD, and borderline personality disorder presenting today for follow-up. Date of last visit: 09/25/2022 Plan from last visit: 1. Start Clomipramine to address OCD symptoms. 2. Utilize Prazosin to help with trauma related nightmares. 3. Consult placed for DBT IOP. Today Jessica shares that she tried the Clomipramine and Prazosin. She started Clomipramine first for 2 to 3 days. She felt more anxious and had worsening suicidal thoughts. She felt it stopped her from doing anything. Then she started Prazosin and struggled with feeling overwhelmed. She is wondering if it was due to her being anxious about the medications in the first place that she experienced more anxiety in taking these medications. She worries about losing her personality if she takes medications. Would like to work on developing better coping skills. 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 Prazosin did help with her trauma related nightmares and she is willing to try it just by itself without the Clomipramine. Her daughter is 12 year old and has been on medication and has been diagnosed with Autism. She asked about Autism diagnosis for herself. She had an IEP in school. She struggles with sensory overload, social anxiety and has some repetitions. Interval Progress: Same Risks and benefits of the medication, including any black box warnings, were discussed with the patient. Social History: See HPI PATIENT DATA: Generalized Anxiety Disorder Scale (MITCHELL-7) MITCHELL - 7 SCORES 09/24/2022 10/23/2022 MITCHELL-7 Score 20 21 (0-4) minimal anxiety, (5-9) mild anxiety, (10-14) moderate anxiety, (15-21) severe anxiety Patient Health Questionnaire (PHQ-9) PHQ-9 09/24/2022 10/19/2022 10/19/2022 Score 11 16 16 (0-4) minimal depression, (5-9) mild depression, (10-14) moderate depression, (15-19) moderately severe depression, (20-27) severe depression ROS: General: Negative for fever, malaise, unintentional weight loss HEENT: Negative for recent changes in vision or hearing, no nasal drainage Respiratory: Negative for cough, wheezing or SOB Cardiovascular: Negative for chest pain GI: Negative for nausea, vomiting, change in bowel habits MUSCULOSKELETAL: Negative for acute back or joint pain SKIN: Negative for rash NEURO: Negative for headaches, seizures, focal neurological deficits All other systems negative. VITAL SIGNS: BP Temp Pulse Resp SpO2 MENTAL STATUS EXAMINATION: Appearance: Appropriately groomed, appears stated age Behavior: Appropriately engaged Psychomotor: No psychomotor agitation Cognition Level of Consciousness: Awake and alert. No fluctuation in wakefulness. Orientation: Grossly oriented Memory: Intact Attention/Concentration: Good Fund of Knowledge: Able to demonstrate an awareness of current events. Mood: Anxious Affect: Congruent to mood Speech/Language: Appropriate tone, prosody, sandy, phonetics, and syntax Thought Form: Goal-directed. No loosening of associations. Thought Content: No delusions noted or endorsed. Perceptual Disturbances: Did not appear to respond to auditory stimuli. Safety: Suicidal Ideations: No suicidal ideation, intent or plan. Homicidal Ideations: No homicidal ideation, intent or plan. Insight: Appropriate Judgment: Appropriate I spent a total of 38 minutes on the date of the service which included preparing to see the patient, [id number] patient care, completing clinical documentation, and counseling and educating the patient/family/caregiver, ordering medications/labs, and communicating with her other healthcare providers. Samaria Singh APRN.CNP October 23, 2022 4:27 PM This note was partially generated using Sape voice recognition system. Note was reviewed for accuracy. There may be minor misspellings or grammar miscues with Sape voice recognition. documented in this encounter [facility] 10-19-2022 Consult note Summary: DA for DBT IOP No Show IOP (INTENSIVE OUTPATIENT PROGRAM) APPOINTMENT NO SHOW COMMUNICATION DATE: 10/19/2022 Scheduled Intensive Outpatient Program appointment for Jessica Prieto was on 10/19/22 at 1:00PM. Pt was no call/no show to appointment. Pt answered phone call from therapist at 1:10pm, reporting that she forgot about the appointment and wanted to continue. Pt indicated that she forgot that her 5 children had an early release day from school today, and noted that they were all currently home and she was the only one at home with them. Pt reported that she would connect to the appointment, however ultimately did not, as this therapist remained connected to Zoom for an additional 10 minutes after ending phone call with Pt (1:25pm). Called Pt again and indicated that the appointment will have to be rescheduled at this time. Pt inquired about program guidelines and was provided information (I.e. 4 days per week, 3 hours per day, for 6 weeks, must be in confidential location, etc.). 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 Pt was provided with the program phone number and email address to reach out to reschedule this appointment once she is able to have support with childcare that would allow her to fully commit to the program/group guidelines. SIGNATURE: VALDO Muro-S PATIENT NAME: Jessica Prieto DATE: October 19, 2022 TIME: 1:22 PM documented in this encounter [facility] 09-30-2022 Miscellaneous Notes Patient notified and voices understanding. Please call the patient and ask her to stop the Clomipramine. Add her to our cancellation list for a sooner visit so we can discuss this side effect and other treatment options. Patient calls to report that she has taken two doses of clomipramine at bedtime as ordered and when she wakes in the morning she feels very over-stimulated (like her brain just won't stop) and panicky. She reports she feels shaky and like her heart is racing but she was not able to to tell me what her current HR is. She reports the symptoms lasted all day yesterday after taking medication at bed time and took another pill last night waking up this morning feeling the same way. Patient asking what provider recommends she do in regards to the medication. Reviewed red flag symptoms with patient of when to report to ED. Patient verbalizes understanding. Rivka Burkett RN documented in this encounter [facility] 09-22-2022 Miscellaneous Notes Patient notified. Mela Vicente RN +yeast, Diflucan sent in. Maegan [place], REJECT OPENER.BOROUGH COORDINATOR documented in this encounter [facility] 09-21-2022 History of Presen t illness Narrative Special Officer offered: Patient declines. Jessica Prieto is a 31 year old female who presents for vaginal pruritis for 4 days. Vaginal discharge: none. Itching: YES Dyspareunia: N/A Fever/chills: No Abdominal pain: Yes, some mild cramping Bladder: Negative for dysuria or frequency Bowel: No blood in stool, pain with BM, tarry stool, persistent diarrhea or constipation Any new sexual partners or concern for STD exposure: No Are you currently taking any medications to treat vaginitis: No Past medical, surgical, social history, medications and allergies reviewed and updated. OBJECTIVE: BP 104/72 Wt 147 lb (66.7kg) GENERAL: Well developed, well nourished in no apparent distress ABDOMEN: soft, non-tender, and no masses PELVIC: external genitalia normal, normal Bartholin's glands, urethra, Cardington's glands, no vulvar lesions, no cervical lesions, good vaginal support, physiologic discharge present, normal appearing perineal body and perianal region, - labia majora red/inflammed BIMANUAL: uterus normal size, shape and consistency, no adnexal masses, non-tender, and Mild tenderness. ASSESSMENT/PLAN: 1. Vaginal irritation - ICD9: 623.9, ICD10: N89.8 - Lotrisone ordered for vulvar irritation - BACTERIAL VAGINOSIS AMPLIFICATION - JORDEN / TRICHOMONAS AMPLIFICATION Maegan Reed APRN.CNP Medical Decision Making: Problems: Low: Acute, uncomplicated illness or injury Data: Unique test(s) ordered: 2 Risk: Low: Low risk from testing/treatment Moderate: Drug management Medical Decision Making Level: 3 - Low documented in this encounter [facility] 09-15-2022 Miscellaneous Notes Patient notified. Mela Vicente RN I sent in Aygestin taper into [facility] in [place]. She is advised patient to follow directions completely and also to let her know that when she finishes the taper that she could have a regular period that follows. Reviewed bleeding precautions with patient. Maegan Reed APRN.CNP Pt calling and stated that last week she had her Mirena removed and the day after that she started bleeding. Pt reports that her bleeding is very heavy. She stated that she is needing to change her pad every 45min -to an hour. Pads are filled side to side to the point of overflowing. Pt stated that she has been bleeding this heavy for the past 4 days. Pt denies any c/o dizziness, SOB, or chest pain. Do you want to see pt in the office today? Please advise. Neyda Mcclelland LPN documented in this encounter [facility] 09-11-2022 History of Presen t illness Narrative Jessica presents for removal of IUD due to severe pelvic pain. UNIVERSAL PROTOCOL / SAFETY CHECKLIST Procedure to be Performed: Mirena removal Sign In: A Moment of CARE was completed. Personnel directly involved with the procedure wore the appropriate PPE (Personal Protective Equipment). Patient/Surrogate Stated/Verified: PATIENT VERIFIED(optional for EMERGENT procedures): Patient name, Date of , Relevant allergies, and The intended procedure Time Out Communication: Intended patient and procedure match the source documents. Consent documented and matches the intended procedure. Sign Out: SIGN OUT (optional for EMERGENT procedures): No specimen collected. No instruments, equipment or retained foreign bodies applicable. Rosi Adams RN PROCEDURE: Speculum placed in vagina, IUD string visualized and grasped with ring forceps. ASSESSMENT/PLAN: IUD removed without difficulty, intact, and patient tolerated procedure well. Contraception plans: none Maegan Reed APRN.CNP documented in this encounter [facility] 09-10-2022 Miscellaneous Notes Order filed. Maegan Reed APRN.CNP Patient notified. Would like to remove the IUD. Appointment scheduled. Please file pending order. Will need attached to her appointment. Mela Vicente RN Please let the pt know that her IUD is in the correct position and there is a small 2.4 cm cyst on the left ovary. If she want we can pull the IUD and see if that resolves the pain or wait until she has complete the antibiotics to see if the pain resolves. I will send in some strong pain medication for her. Maegan Reed APRN.CNP Patient called asking for pelvic US results. States she is still having a lot of pain. Spending her days on the couch with a heating pad taking Motrin. Symptoms have not improved. Has not picked up Flagyl RX yet. It was sent to wrong pharmacy. Will bean picker today. Mela Vicente RN documented in this encounter [facility] 09-08-2022 Miscellaneous Notes Patient notified. Aware office will call once we receive the rest of her results. Mela Vicente RN BV positive. To treat with Flagyl 500mg PO BID for 7 days. 1) No alcohol during treatment and for 24 hours after last dose. 2) No intercourse during treatment. - Still waiting on US report Maegan Reed APRN.CNP documented in this encounter [facility] 09-07-2022 Miscellaneous Notes Received medical records and provided to provider, Maegan, for review. Neyda Cheatham LPN Called [facility]- spoke to Emiyl. Requested medical records from ED visits September 04-2022. Neyda Cheatham LPN documented in this encounter [facility] 09-07-2022 History of Presen t illness Narrative The patient is here for an injection of Rocephin, reconstituted with 1 ml of Xylocaine 1% without Epinephrine (mfgr: [employer], Lot #: [id number], Exp. date: 06/22/26). Dose: 500mg Amount wasted: 0. Route: Intramuscular Site: left upper quadrant gluteus General Scrap Worker: [employer] Lot #: [id number] Expiration Date: 01/19/54 The date due for the next injection is n/a Neyda Mcclelland LPN Special Officer offered: Patient declines. Jessica Prieto is a 31 year old female who presents for problem visit pelvic pain for 5 days. HPI: Patient presents today for ED follow-up for severe pelvic pain. Patient went to [place] ED on 09/04/2022 for pelvic pain that started on 09/03/2022. She had an ultrasound performed that unremarkable and was treated with pain medication and sent home. She returned to the ED 09/05/2022 for the same reason and a CT was performed that showed a 18 mm left adnexal cyst. She was again treated with medication and sent home. Patient states that she has had daily spotting since the pain began the pain is a sharp stabbing pain is in the lower abdomen/pelvic region. She states that the pain does radiate into her back and feels like straight through her scar, she rates the pain today 8 out of 10. She states that nothing really relieves the pain and the pain gets worse with movement. She denies any fevers or chills since beginning of this pain. Patient does have a Mirena IUD in place OB History T4 L5 SAB0 IAB0 Ectopic0 Multiple0 Live Births5 Cage Supervisor History LMP: 08/10/2022 (Approximate), Having periods Age at Menarche: 13 Age at First : 16 Age at Menopause: Cage Supervisor History Comments: Sexual Activity: Yes; Male Contraception: Tubal Ligation, I.U.D. 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 PONV (postoperative nausea and vomiting) depression Thymoma THYMOLIPOMA Thyroid disease PAST SURGICAL HISTORY Procedure Laterality Date ADENOIDECTOMY PRIMARY <AGE 12 Adenoidectomy w/ tonsils DELIVERY ONLY , low transverse DELIVERY ONLY , low transverse DELIVERY ONLY 06/02/2017 DELIVERY ONLY DELIVERY ONLY 07/15/2021 LTCS COLONOSCOPY GEN ANES Colonoscopy and endoscopy D&C (INCOMPLETE AB), ANY TRIMESTER LAPAROSCOPY SURG CHOLECYSTECTOMY 09/19/2012 LAPS SURG CHOLECYSTECTOMY W/CHOLANGIOGRAPHY `09-19-12 MIRENA 05/13/2022 8 yr SALPINGECTOMY Bilateral 07/15/2021 THORACOTOMY, CYST REMOVAL 2006, 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, 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 TONSILLECTOMY PRIMARY/SECONDARY <AGE 12 Tonsillectomy w/ adenoids FAMILY HISTORY Problem Relation Age of Onset Alcohol/Drug Mother DRUG Psychiatry Mother PTSD,ANXIET/DEPRESSION Heart Mother Cancer Mother Melanoma Suicide / Suicidal Behaviors Sister Cancer Brother Melanoma Cancer Maternal Grandmother Heart Maternal Grandmother Alcohol/Drug Maternal Grandfather ETOH Cancer Maternal Grandfather LUNG ADD/ADHD Daughter Asthma Daughter No Known Problems Son No Known Problems Son Alcohol/Drug Maternal Aunt DRUG Thyroid Maternal Aunt Social History Tobacco Use Smoking status: Every Day Packs/day: 1.00 Years: 15.00 Pack years: 15.00 Types: Cigarettes Smokeless tobacco: Never Vaping Use Vaping Use: Never used Substance Use Topics Alcohol use: No Drug use: Yes Types: Marijuana Comment: Socially- perhpas once monthly Current Outpatient Medications Medication Sig levonorgestrel (MIRENA) 20 mcg/24 hours (7 yrs) 52 mg IUD 1 Each by INTRAUTERINE route as directed. EPINEPHrine (EPIPEN) 0.3 mg/0.3 mL auto-injector Inject 0.3 mL intramuscularly as needed (For allergic reaction). Use as directed doxycycline hyclate (VIBRAMYCIN) 100 mg capsule Take 1 capsule by mouth twice daily for 10 days. No current facility-administered medications for this visit. Allergies As of Date: 09/07/2022 Allergen Noted Reaction CATS 04/03/2013 Anaphylaxis GENTAMICIN 09/20/2012 Other: See Comments GRASS POLLEN 11/10/2013 Hives Fully Assessed 09/07/2022 REVIEW OF SYSTEMS SEE HPI Expanded ROS: N/A Allergies and current medication updated:Yes EXAM: BP 118/78 Pulse 100 Resp 12 Wt 146 lb (66.2kg) SpO2 100% LMP 08/10/2022 GENERAL: pleasant, female in mild distress HEENT: Normocephalic, atraumatic, mucus membranes moist, and no lesions CHEST: Normal inspiratory effort ABDOMEN: soft, no masses, and Severe tenderness in RLQ, LLQ, periumbilical area, suprapubic area PELVIC: external genitalia normal, normal Bartholin's glands, urethra, Cardington's glands, no vulvar lesions, no cervical lesions, good vaginal support, physiologic discharge present, normal appearing perineal body and perianal region, IUD string seen BIMANUAL: uterus normal size, shape and consistency, no adnexal masses, positive cervical motion tenderness, and Severe tenderness NEURO: alert and oriented x3,exam grossly non-focal EXTREMITIES: normal ASSESSMENT/PLAN: 1. Pelvic pain in female - ICD9: 625.9, ICD10: R10.2 - PELVIC US WHI - JORDEN / TRICHOMONAS AMPLIFICATION - BACTERIAL VAGINOSIS AMPLIFICATION - Possible PID, Rocephin 500 mg IM today- Doxy x 10 days ordered - will call pt with US and test results. Maegan Reed APRN.BOROUGH COORDINATOR Medical Decision Making: Problems: Moderate: New problem with uncertain prognosis Data: Unique test(s) ordered: 3+ Risk: Low: Low risk from testing/treatment Moderate: Drug management Medical Decision Making Level: 4 - Moderate documented in this encounter [facility] 08-31-2022 Miscellaneous Notes Spoke to patient and scheduled. Please assist and advise patient for consult to behavior health. Thank you, Luana Shrestha 08/31/2022 documented in this encounter [facility] 08-31-2022 History of Presen t illness Narrative BEHAVIORAL HEALTH SOCIAL WORK QUICK NOTE Provider Action/FYI Chart review completed Patient needs appointment with Samaria Singh APRN.CNP Patient identified for [facility] from: PCP Reason for referral: Resources Behavioral Health Resources: Psychiatry med management [facility] encounter type: Chart Review Attempts to Outreach: 1 attempt Referral made: Psychiatry - Internal Psychiatry-Internal referral type: Medication Management Final Disposition: Resources given Patient Discharged?: Yes Patient reported that caregiver was able to meet their needs today?: N/A Pt identified by name and . PCP stating patient would like to see psychiatry at [facility], specifically Samaria Singh APRN.CNP. SW will route their chart to her nurse, Rosa Elena Godoy LPN who can assist with patient scheduling. No needs further from this SW at this time. ORION Shelton August 31, 2022 documented in this encounter [facility] documented as of this encounter (statuses as of 09/10/2022) [facility] History of Past illness Narrative* Problem Noted Date Resolved Date 32 weeks gestation of 08/31/2022 09/10/2022 Mother currently breast-feeding 08/31/2022 09/10/2022 Limited care, antepartum 06/17/2021 09/10/2022 Abnormal glucose in , antepartum 202009/10/2022 Overview: Did not do 3hr GTT. Checking BS with some elevated reading. Will see drug and alcohol counsellor. Robyn Mccartney MD Unplanned 12/05/2020 09/10/2022 Overview: 12/05/2020atient is here with father the baby. This is a surprise .TKRN with history of section, ante 12/05/2020 09/10/2022 Overview: 12/05/2020t had 4 previous C section. She desires a repeat C section by Dr. Vallejo. TKRN Nausea and vomiting in 12/05/2020 09/10/2022 Overview: 12/05/2020atient is complaining of nausea and occasional vomiting in . Dietary considerations discussed . Vitamin B6 recommended. Advised patient to call/come in if she is unable to keep any food or fluids down in a 24-hour period.TKRN Group B Streptococcus carrier, antepartum 201606/10/2017 Chest wall pain 08/12/2016 11/24/2016 High-risk supervision 05/04/2013 11/04/2016 Drug dependence complicating 3 06/10/2017 Overview: May 04, 2013 referred to steps for evaluation Abnormal finding on screen 02/27/2013 11/04/2016 Overview: Sequential screen risk increased from 1:4300 to 1:180 But screen negative overall since cutoff for positive is 1:100. Attempted to reach patient to review results and offer amniocentesis if desired, unable to reach, Will discuss at next visit if still unable to reach. SM UTI in 11/28/2012 08/26/2016 Overview: 11/28/12 - rx given, needs ABA - KK Previous section 11/24/20122016 Overview: 11/24/2012Pt had two previous C sections, one in [place] and the other at [facility]. She desires a repeat C section by Dr. Mercedes Beltre .Patient signed a release of records form to obtain her previous report from [facility]. Tobacco use during , antepartum 013 09/10/2022 Overview: 1Pt smokes 1 pack a day of cigarettes, down from 2 packs/day a day. Discussed risks of smoking during . Advised pt to quit. TKRN Exposure to parvovirus 11/24/2012 7 Overview: 11/24/2012Patient states she was exposed to parvovirus, see linked telephone note from November 14. Patient had a negative parvovirus IgG and IgM on November 14. Repeat labs in [address] Vallejo. January 03, 2013 RR- recheck today Dysuria in 11/24/2012 11/24/2016 Overview: 11/24/2012Patient states she has noted dysuria on and off for several weeks. She denies any dysuria for the past 3 days. Urine culture ordered by Dr. Nails. Pelvic pain in 11/24/2012 017 Overview: 11/22/2012Patient was seen at [facility] [place] on November 22 for pelvic pain in . An ultrasound was done on that date that revealed an intrauterine with moderate subchorionic hemorrhage inferior to the gestational sac. Second area of an anechoic avascular changes right lateral to the gestational sac may be a blighted twin gestation versus subchorionic hemorrhage. Estimated gestational age at 7 weeks 6 days.Patient states that she has been noticing the pain occurring less often since she was seen at the hospital. She denies any bleeding this . She denies any pelvic pain today. [facility] ultrasound sent to Dr. Beltre's office for review. Abdominal pain 09/20/2012 01/03/2013 Acute cholecystitis with chronic cholecystitis 0 09/20/2012 01/03/2013 documented as of this encounter (statuses as of 09/11/2022) [facility] History of Past illness Narrative* Problem Noted Date Resolved Date 32 weeks gestation of 08/31/2022 09/10/2022 Mother currently breast-feeding 08/31/2022 09/10/2022 Limited care, antepartum 06/17/2021 09/10/2022 Abnormal glucose in , antepartum 202009/10/2022 Overview: Did not do 3hr GTT. Checking BS with some elevated reading. Will see drug and alcohol counsellor. Robyn Mccartney MD Unplanned 12/05/2020 09/10/2022 Overview: 12/05/2020atient is here with father the baby. This is a surprise .TKRN with history of section, ante 12/05/2020 09/10/2022 Overview: 12/05/2020t had 4 previous C section. She desires a repeat C section by Dr. Vallejo. TKRN Nausea and vomiting in 12/05/2020 09/10/2022 Overview: 12/05/2020atient is complaining of nausea and occasional vomiting in . Dietary considerations discussed . Vitamin B6 recommended. Advised patient to call/come in if she is unable to keep any food or fluids down in a 24-hour period.TKRN Group B Streptococcus carrier, antepartum 201606/10/2017 Chest wall pain 08/12/2016 11/24/2016 High-risk supervision 05/04/2013 11/04/2016 Drug dependence complicating 3 06/10/2017 Overview: May 04, 2013 referred to steps for evaluation Abnormal finding on screen 02/27/2013 11/04/2016 Overview: Sequential screen risk increased from 1:4300 to 1:180 But screen negative overall since cutoff for positive is 1:100. Attempted to reach patient to review results and offer amniocentesis if desired, unable to reach, Will discuss at next visit if still unable to reach. SM UTI in 11/28/2012 08/26/2016 Overview: 11/28/12 - rx given, needs ABA - KK Previous section 11/24/20122016 Overview: 11/24/2012Pt had two previous C sections, one in [place] and the other at [facility]. She desires a repeat C section by Dr. Mercedes Beltre .Patient signed a release of records form to obtain her previous report from [facility]. Tobacco use during , antepartum 013 09/10/2022 Overview: 1Pt smokes 1 pack a day of cigarettes, down from 2 packs/day a day. Discussed risks of smoking during . Advised pt to quit. TKRN Exposure to parvovirus 11/24/2012 7 Overview: 11/24/2012Patient states she was exposed to parvovirus, see linked telephone note from November 14. Patient had a negative parvovirus IgG and IgM on November 14. Repeat labs in [address] Vallejo. January 03, 2013 RR- recheck today Dysuria in 11/24/2012 11/24/2016 Overview: 11/24/2012Patient states she has noted dysuria on and off for several weeks. She denies any dysuria for the past 3 days. Urine culture ordered by Dr. Nails. Pelvic pain in 11/24/2012 017 Overview: 11/22/2012Patient was seen at [facility] on November 22 for pelvic pain in . An ultrasound was done on that date that revealed an intrauterine with moderate subchorionic hemorrhage inferior to the gestational sac. Second area of an anechoic avascular changes right lateral to the gestational sac may be a blighted twin gestation versus subchorionic hemorrhage. Estimated gestational age at 7 weeks 6 days.Patient states that she has been noticing the pain occurring less often since she was seen at the hospital. She denies any bleeding this . She denies any pelvic pain today. [facility] ultrasound sent to Dr. Beltre's office for review. Abdominal pain 09/20/2012 01/03/2013 Acute cholecystitis with chronic cholecystitis 0 09/20/2012 01/03/2013 documented as of this encounter (statuses as of 09/15/2022) [facility]01-09-2023 History of Past illness Narrative* Problem Noted Date Resolved Date 32 weeks gestation of 08/31/2022 09/10/2022 Mother currently breast-feeding 08/31/2022 09/10/2022 Limited care, antepartum 06/17/2021 09/10/2022 Abnormal glucose in , antepartum 202009/10/2022 Overview: Did not do 3hr GTT. Checking BS with some elevated reading. Will see drug and alcohol counsellor. Robyn Mccartney MD Unplanned 12/05/2020 09/10/2022 Overview: 12/05/2020atient is here with father the baby. This is a surprise .TKRN with history of section, ante 12/05/2020 09/10/2022 Overview: 12/05/2020t had 4 previous C section. She desires a repeat C section by Dr. Vallejo. TKRN Nausea and vomiting in 12/05/2020 09/10/2022 Overview: 12/05/2020atient is complaining of nausea and occasional vomiting in . Dietary considerations discussed . Vitamin B6 recommended. Advised patient to call/come in if she is unable to keep any food or fluids down in a 24-hour period.TKRN Group B Streptococcus carrier, antepartum 201606/10/2017 Chest wall pain 08/12/2016 11/24/2016 High-risk supervision 05/04/2013 11/04/2016 Drug dependence complicating 3 06/10/2017 Overview: May 04, 2013 referred to steps for evaluation Abnormal finding on screen 02/27/2013 11/04/2016 Overview: Sequential screen risk increased from 1:4300 to 1:180 But screen negative overall since cutoff for positive is 1:100. Attempted to reach patient to review results and offer amniocentesis if desired, unable to reach, Will discuss at next visit if still unable to reach. SM UTI in 11/28/2012 08/26/2016 Overview: 11/28/12 - rx given, needs ABA - KK Previous section 11/24/20122016 Overview: 11/24/2012Pt had two previous C sections, one in [place] and the other at [facility]. She desires a repeat C section by Dr. Mercedes Beltre .Patient signed a release of records form to obtain her previous report from [facility]. Tobacco use during , antepartum 013 09/10/2022 Overview: 1Pt smokes 1 pack a day of cigarettes, down from 2 packs/day a day. Discussed risks of smoking during . Advised pt to quit. TKRN Exposure to parvovirus 11/24/2012 7 Overview: 11/24/2012Patient states she was exposed to parvovirus, see linked telephone note from November 14. Patient had a negative parvovirus IgG and IgM on November 14. Repeat labs in [address] Vallejo. January 03, 2013 RR- recheck today Dysuria in 11/24/2012 11/24/2016 Overview: 11/24/2012Patient states she has noted dysuria on and off for several weeks. She denies any dysuria for the past 3 days. Urine culture ordered by Dr. Nails. Pelvic pain in 11/24/2012 017 Overview: 11/22/2012Patient was seen at [facility] [place] on November 22 for pelvic pain in . An ultrasound was done on that date that revealed an intrauterine with moderate subchorionic hemorrhage inferior to the gestational sac. Second area of an anechoic avascular changes right lateral to the gestational sac may be a blighted twin gestation versus subchorionic hemorrhage. Estimated gestational age at 7 weeks 6 days.Patient states that she has been noticing the pain occurring less often since she was seen at the hospital. She denies any bleeding this . She denies any pelvic pain today. [facility] ultrasound sent to Dr. Beltre's office for review. Abdominal pain 09/20/2012 01/03/2013 Acute cholecystitis with chronic cholecystitis 0 09/20/2012 01/03/2013 documented as of this encounter (statuses as of 09/21/2022) [facility]01-[facility] History of Past illness Narrative* Problem Noted Date Resolved Date 32 weeks gestation of 08/31/2022 09/10/2022 Mother currently breast-feeding 08/31/2022 09/10/2022 Limited care, antepartum 06/17/2021 09/10/2022 Abnormal glucose in , antepartum 202009/10/2022 Overview: Did not do 3hr GTT. Checking BS with some elevated reading. Will see drug and alcohol counsellor. Robyn Mccartney MD Unplanned 12/05/2020 09/10/2022 Overview: 12/05/2020atient is here with father the baby. This is a surprise .TKRN with history of section, ante 12/05/2020 09/10/2022 Overview: 12/05/2020t had 4 previous C section. She desires a repeat C section by Dr. Vallejo. TKRN Nausea and vomiting in 12/05/2020 09/10/2022 Overview: 12/05/2020atient is complaining of nausea and occasional vomiting in . Dietary considerations discussed . Vitamin B6 recommended. Advised patient to call/come in if she is unable to keep any food or fluids down in a 24-hour period.TKRN Group B Streptococcus carrier, antepartum 201606/10/2017 Chest wall pain 08/12/2016 11/24/2016 High-risk supervision 05/04/2013 11/04/2016 Drug dependence complicating 3 06/10/2017 Overview: May 04, 2013 referred to steps for evaluation Abnormal finding on screen 02/27/2013 11/04/2016 Overview: Sequential screen risk increased from 1:4300 to 1:180 But screen negative overall since cutoff for positive is 1:100. Attempted to reach patient to review results and offer amniocentesis if desired, unable to reach, Will discuss at next visit if still unable to reach. SM UTI in 11/28/2012 08/26/2016 Overview: 11/28/12 - rx given, needs ABA - KK Previous section 11/24/20122016 Overview: 11/24/2012Pt had two previous C sections, one in [place] and the other at [facility]. She desires a repeat C section by Dr. Mercedes Beltre .Patient signed a release of records form to obtain her previous report from [facility]. Tobacco use during , antepartum 013 09/10/2022 Overview: 1Pt smokes 1 pack a day of cigarettes, down from 2 packs/day a day. Discussed risks of smoking during . Advised pt to quit. TKRN Exposure to parvovirus 11/24/2012 7 Overview: 11/24/2012Patient states she was exposed to parvovirus, see linked telephone note from November 14. Patient had a negative parvovirus IgG and IgM on November 14. Repeat labs in [address] Vallejo. January 03, 2013 RR- recheck today Dysuria in 11/24/2012 11/24/2016 Overview: 11/24/2012Patient states she has noted dysuria on and off for several weeks. She denies any dysuria for the past 3 days. Urine culture ordered by Dr. Nails. Pelvic pain in 11/24/2012 017 Overview: 11/22/2012Patient was seen at [facility] [place] on November 22 for pelvic pain in . An ultrasound was done on that date that revealed an intrauterine with moderate subchorionic hemorrhage inferior to the gestational sac. Second area of an anechoic avascular changes right lateral to the gestational sac may be a blighted twin gestation versus subchorionic hemorrhage. Estimated gestational age at 7 weeks 6 days.Patient states that she has been noticing the pain occurring less often since she was seen at the hospital. She denies any bleeding this . She denies any pelvic pain today. [facility] ultrasound sent to Dr. Beltre's office for review. Abdominal pain 09/20/2012 01/03/2013 Acute cholecystitis with chronic cholecystitis 0 09/20/2012 01/03/2013 documented as of this encounter (statuses as of 09/22/2022) [facility]01-09[facility] History of Past illness Narrative* Problem Noted Date Resolved Date 32 weeks gestation of 08/31/2022 09/10/2022 Mother currently breast-feeding 08/31/2022 09/10/2022 Limited care, antepartum 06/17/2021 09/10/2022 Abnormal glucose in , antepartum 202009/10/2022 Overview: Did not do 3hr GTT. Checking BS with some elevated reading. Will see drug and alcohol counsellor. Robyn Mccartney MD Unplanned 12/05/2020 09/10/2022 Overview: 12/05/2020atient is here with father the baby. This is a surprise .TKRN with history of section, ante 12/05/2020 09/10/2022 Overview: 12/05/2020t had 4 previous C section. She desires a repeat C section by Dr. Vallejo. TKRN Nausea and vomiting in 12/05/2020 09/10/2022 Overview: 1Patient is complaining of nausea and occasional vomiting in . Dietary considerations discussed . Vitamin B6 recommended. Advised patient to call/come in if she is unable to keep any food or fluids down in a 24-hour period.TKRN Group B Streptococcus carrier, antepartum 201606/10/2017 Chest wall pain 08/12/2016 11/24/2016 High-risk supervision 05/04/2013 11/04/2016 Drug dependence complicating 3 06/10/2017 Overview: May 04, 2013 referred to steps for evaluation Abnormal finding on screen 02/27/2013 11/04/2016 Overview: Sequential screen risk increased from 1:4300 to 1:180 But screen negative overall since cutoff for positive is 1:100. Attempted to reach patient to review results and offer amniocentesis if desired, unable to reach, Will discuss at next visit if still unable to reach. SM UTI in 11/28/2012 08/26/2016 Overview: 11/28/12 - rx given, needs ABA - KK Previous section 11/24/20122016 Overview: 11/24/2012Pt had two previous C sections, one in [place] and the other at [facility]. She desires a repeat C section by Dr. Mercedes Beltre .Patient signed a release of records form to obtain her previous report from [facility]. Tobacco use during , antepartum 013 09/10/2022 Overview: 12/05/2020t smokes 1 pack a day of cigarettes, down from 2 packs/day a day. Discussed risks of smoking during . Advised pt to quit. TKRN Exposure to parvovirus 11/24/2012 01/04/201 7 Overview: 11/24/2012Patient states she was exposed to parvovirus, see linked telephone note from November 14. Patient had a negative parvovirus IgG and IgM on November 14. Repeat labs in [address] Vallejo. January 03, 2013 RR- recheck today Dysuria in 11/24/2012 11/24/2016 Overview: 11/24/2012Patient states she has noted dysuria on and off for several weeks. She denies any dysuria for the past 3 days. Urine culture ordered by Dr. Nails. Pelvic pain in 11/24/2012 017 Overview: 11/22/2012Patient was seen at [facility] [place] on November 22 for pelvic pain in . An ultrasound was done on that date that revealed an intrauterine with moderate subchorionic hemorrhage inferior to the gestational sac. Second area of an anechoic avascular changes right lateral to the gestational sac may be a blighted twin gestation versus subchorionic hemorrhage. Estimated gestational age at 7 weeks 6 days.Patient states that she has been noticing the pain occurring less often since she was seen at the hospital. She denies any bleeding this . She denies any pelvic pain today. [facility] ultrasound sent to Dr. Beltre's office for review. Abdominal pain 09/20/2012 01/03/2013 Acute cholecystitis with chronic cholecystitis 0 09/20/2012 01/03/2013 documented as of this encounter (statuses as of 09/30/2022) [facility]01-[facility] History of Past illness Narrative* Problem Noted Date Resolved Date 32 weeks gestation of 08/31/2022 09/10/2022 Mother currently breast-feeding 08/31/2022 09/10/2022 Limited care, antepartum 06/17/2021 09/10/2022 Abnormal glucose in , antepartum 202009/10/2022 Overview: Did not do 3hr GTT. Checking BS with some elevated reading. Will see drug and alcohol counsellor. Robyn Mccartney MD Unplanned 12/05/2020 09/10/2022 Overview: 12/05/2020atient is here with father the baby. This is a surprise .TKRN with history of section, ante 12/05/2020 09/10/2022 Overview: 12/05/2020t had 4 previous C section. She desires a repeat C section by Dr. Vallejo. TKRN Nausea and vomiting in 12/05/2020 09/10/2022 Overview: 12/05/2020atient is complaining of nausea and occasional vomiting in . Dietary considerations discussed . Vitamin B6 recommended. Advised patient to call/come in if she is unable to keep any food or fluids down in a 24-hour period.TKRN Group B Streptococcus carrier, antepartum 201606/10/2017 Chest wall pain 08/12/2016 11/24/2016 High-risk supervision 05/04/2013 11/04/2016 Drug dependence complicating 3 06/10/2017 Overview: May 04, 2013 referred to steps for evaluation Abnormal finding on screen 02/27/2013 11/04/2016 Overview: Sequential screen risk increased from 1:4300 to 1:180 But screen negative overall since cutoff for positive is 1:100. Attempted to reach patient to review results and offer amniocentesis if desired, unable to reach, Will discuss at next visit if still unable to reach. SM UTI in 11/28/2012 08/26/2016 Overview: 11/28/12 - rx given, needs ABA - KK Previous section 11/24/20122016 Overview: 11/24/2012Pt had two previous C sections, one in [place] and the other at [facility]. She desires a repeat C section by Dr. Mercedes Beltre .Patient signed a release of records form to obtain her previous report from [facility]. Tobacco use during , antepartum 013 09/10/2022 Overview: 1Pt smokes 1 pack a day of cigarettes, down from 2 packs/day a day. Discussed risks of smoking during . Advised pt to quit. TKRN Exposure to parvovirus 11/24/2012 7 Overview: 11/24/2012Patient states she was exposed to parvovirus, see linked telephone note from November 14. Patient had a negative parvovirus IgG and IgM on November 14. Repeat labs in [address] Vallejo. January 03, 2013 RR- recheck today Dysuria in 11/24/2012 11/24/2016 Overview: 11/24/2012Patient states she has noted dysuria on and off for several weeks. She denies any dysuria for the past 3 days. Urine culture ordered by Dr. Nails. Pelvic pain in 11/24/2012 017 Overview: 11/22/2012Patient was seen at [facility] [place] on November 22 for pelvic pain in . An ultrasound was done on that date that revealed an intrauterine with moderate subchorionic hemorrhage inferior to the gestational sac. Second area of an anechoic avascular changes right lateral to the gestational sac may be a blighted twin gestation versus subchorionic hemorrhage. Estimated gestational age at 7 weeks 6 days.Patient states that she has been noticing the pain occurring less often since she was seen at the hospital. She denies any bleeding this . She denies any pelvic pain today. [facility] ultrasound sent to Dr. Beltre's office for review. Abdominal pain 09/20/2012 01/03/2013 Acute cholecystitis with chronic cholecystitis 0 09/20/2012 01/03/2013 documented as of this encounter (statuses as of 10/22/2022) [facility]01[facility] History of Past illness Narrative* Problem Noted Date Resolved Date 32 weeks gestation of 08/31/2022 09/10/2022 Mother currently breast-feeding 08/31/2022 09/10/2022 Limited care, antepartum 06/17/2021 09/10/2022 Abnormal glucose in , antepartum 202009/10/2022 Overview: Did not do 3hr GTT. Checking BS with some elevated reading. Will see drug and alcohol counsellor. Robyn Mccartney MD Unplanned 12/05/2020 09/10/2022 Overview: 12/05/2020atient is here with father the baby. This is a surprise .TKRN with history of section, ante 12/05/2020 09/10/2022 Overview: 12/05/2020t had 4 previous C section. She desires a repeat C section by Dr. Vallejo. TKRN Nausea and vomiting in 12/05/2020 09/10/2022 Overview: 12/05/2020atient is complaining of nausea and occasional vomiting in . Dietary considerations discussed . Vitamin B6 recommended. Advised patient to call/come in if she is unable to keep any food or fluids down in a 24-hour period.TKRN Group B Streptococcus carrier, antepartum 201606/10/2017 Chest wall pain 08/12/2016 11/24/2016 High-risk supervision 05/04/2013 11/04/2016 Drug dependence complicating 3 06/10/2017 Overview: May 04, 2013 referred to steps for evaluation Abnormal finding on screen 02/27/2013 11/04/2016 Overview: Sequential screen risk increased from 1:4300 to 1:180 But screen negative overall since cutoff for positive is 1:100. Attempted to reach patient to review results and offer amniocentesis if desired, unable to reach, Will discuss at next visit if still unable to reach. SM UTI in 11/28/2012 08/26/2016 Overview: 11/28/12 - rx given, needs ABA - KK Previous section 11/24/20122016 Overview: 11/24/2012Pt had two previous C sections, one in [place] and the other at [facility]. She desires a repeat C section by Dr. Mercedes Beltre .Patient signed a release of records form to obtain her previous report from [facility]. Tobacco use during , antepartum 013 09/10/2022 Overview: 1Pt smokes 1 pack a day of cigarettes, down from 2 packs/day a day. Discussed risks of smoking during . Advised pt to quit. TKRN Exposure to parvovirus 11/24/2012 7 Overview: 11/24/2012Patient states she was exposed to parvovirus, see linked telephone note from November 14. Patient had a negative parvovirus IgG and IgM on November 14. Repeat labs in [address] Vallejo. January 03, 2013 RR- recheck today Dysuria in 11/24/2012 11/24/2016 Overview: 11/24/2012Patient states she has noted dysuria on and off for several weeks. She denies any dysuria for the past 3 days. Urine culture ordered by Dr. Nails. Pelvic pain in 11/24/2012 017 Overview: 11/22/2012Patient was seen at [facility] [place] on November 22 for pelvic pain in . An ultrasound was done on that date that revealed an intrauterine with moderate subchorionic hemorrhage inferior to the gestational sac. Second area of an anechoic avascular changes right lateral to the gestational sac may be a blighted twin gestation versus subchorionic hemorrhage. Estimated gestational age at 7 weeks 6 days.Patient states that she has been noticing the pain occurring less often since she was seen at the hospital. She denies any bleeding this . She denies any pelvic pain today. [facility] ultrasound sent to Dr. Beltre's office for review. Abdominal pain 09/20/2012 01/03/2013 Acute cholecystitis with chronic cholecystitis 0 09/20/2012 01/03/2013 documented as of this encounter (statuses as of 10/23/2022) [facility] History of Past illness Narrative* Problem Noted Date Resolved Date 32 weeks gestation of 08/31/2022 09/10/2022 Mother currently breast-feeding 08/31/2022 09/10/2022 Limited care, antepartum 06/17/2021 09/10/2022 Abnormal glucose in , antepartum 202009/10/2022 Overview: Did not do 3hr GTT. Checking BS with some elevated reading. Will see drug and alcohol counsellor. Robyn Mccartney MD Unplanned 12/05/2020 09/10/2022 Overview: 12/05/2020atient is here with father the baby. This is a surprise .TKRN with history of section, ante 12/05/2020 09/10/2022 Overview: 12/05/2020t had 4 previous C section. She desires a repeat C section by Dr. Vallejo. TKRN Nausea and vomiting in 12/05/2020 09/10/2022 Overview: 12/05/2020atient is complaining of nausea and occasional vomiting in . Dietary considerations discussed . Vitamin B6 recommended. Advised patient to call/come in if she is unable to keep any food or fluids down in a 24-hour period.TKRN Group B Streptococcus carrier, antepartum 201606/10/2017 Chest wall pain 08/12/2016 11/24/2016 High-risk supervision 05/04/2013 11/04/2016 Drug dependence complicating 3 06/10/2017 Overview: May 04, 2013 referred to steps for evaluation Abnormal finding on screen 02/27/2013 11/04/2016 Overview: Sequential screen risk increased from 1:4300 to 1:180 But screen negative overall since cutoff for positive is 1:100. Attempted to reach patient to review results and offer amniocentesis if desired, unable to reach, Will discuss at next visit if still unable to reach. SM UTI in 11/28/2012 08/26/2016 Overview: 11/28/12 - rx given, needs ABA - KK Previous section 11/24/20122016 Overview: 11/24/2012Pt had two previous C sections, one in [place] and the other at [facility]. She desires a repeat C section by Dr. Mercedes Beltre .Patient signed a release of records form to obtain her previous report from [facility]. Tobacco use during , antepartum 013 09/10/2022 Overview: 1Pt smokes 1 pack a day of cigarettes, down from 2 packs/day a day. Discussed risks of smoking during . Advised pt to quit. TKRN Exposure to parvovirus 11/24/2012 7 Overview: 11/24/2012Patient states she was exposed to parvovirus, see linked telephone note from November 14. Patient had a negative parvovirus IgG and IgM on November 14. Repeat labs in [address] Vallejo. January 03, 2013 RR- recheck today Dysuria in 11/24/2012 11/24/2016 Overview: 11/24/2012Patient states she has noted dysuria on and off for several weeks. She denies any dysuria for the past 3 days. Urine culture ordered by Dr. Nails. Pelvic pain in 11/24/2012 017 Overview: 11/22/2012Patient was seen at [facility] [place] on November 22 for pelvic pain in . An ultrasound was done on that date that revealed an intrauterine with moderate subchorionic hemorrhage inferior to the gestational sac. Second area of an anechoic avascular changes right lateral to the gestational sac may be a blighted twin gestation versus subchorionic hemorrhage. Estimated gestational age at 7 weeks 6 days.Patient states that she has been noticing the pain occurring less often since she was seen at the hospital. She denies any bleeding this . She denies any pelvic pain today. [facility] ultrasound sent to Dr. Beltre's office for review. Abdominal pain 09/20/2012 01/03/2013 Acute cholecystitis with chronic cholecystitis 0 09/20/2012 01/03/2013 documented as of this encounter (statuses as of 10/30/2022) [facility] History of Past illness Narrative* Problem Noted Date Resolved Date 32 weeks gestation of 08/31/2022 09/10/2022 Mother currently breast-feeding 08/31/2022 09/10/2022 Limited care, antepartum 06/17/2021 09/10/2022 Abnormal glucose in , antepartum 202009/10/2022 Overview: Did not do 3hr GTT. Checking BS with some elevated reading. Will see drug and alcohol counsellor. Robyn Mccartney MD Unplanned 12/05/2020 09/10/2022 Overview: 12/05/2020atient is here with father the baby. This is a surprise .TKRN with history of section, ante 12/05/2020 09/10/2022 Overview: 12/05/2020t had 4 previous C section. She desires a repeat C section by Dr. Vallejo. TKRN Nausea and vomiting in 12/05/2020 09/10/2022 Overview: 12/05/2020atient is complaining of nausea and occasional vomiting in . Dietary considerations discussed . Vitamin B6 recommended. Advised patient to call/come in if she is unable to keep any food or fluids down in a 24-hour period.TKRN Group B Streptococcus carrier, antepartum 201606/10/2017 Chest wall pain 08/12/2016 11/24/2016 High-risk supervision 05/04/2013 11/04/2016 Drug dependence complicating 3 06/10/2017 Overview: May 04, 2013 referred to steps for evaluation Abnormal finding on screen 02/27/2013 11/04/2016 Overview: Sequential screen risk increased from 1:4300 to 1:180 But screen negative overall since cutoff for positive is 1:100. Attempted to reach patient to review results and offer amniocentesis if desired, unable to reach, Will discuss at next visit if still unable to reach. SM UTI in 11/28/2012 08/26/2016 Overview: 11/28/12 - rx given, needs ABA - KK Previous section 11/24/20122016 Overview: 11/24/2012Pt had two previous C sections, one in [place] and the other at [facility]. She desires a repeat C section by Dr. Mercedes Beltre .Patient signed a release of records form to obtain her previous report from [facility]. Tobacco use during , antepartum 013 09/10/2022 Overview: 1Pt smokes 1 pack a day of cigarettes, down from 2 packs/day a day. Discussed risks of smoking during . Advised pt to quit. TKRN Exposure to parvovirus 11/24/2012 7 Overview: 11/24/2012Patient states she was exposed to parvovirus, see linked telephone note from November 14. Patient had a negative parvovirus IgG and IgM on November 14. Repeat labs in [address] Vallejo. January 03, 2013 RR- recheck today Dysuria in 11/24/2012 11/24/2016 Overview: 11/24/2012Patient states she has noted dysuria on and off for several weeks. She denies any dysuria for the past 3 days. Urine culture ordered by Dr. Nails. Pelvic pain in 11/24/2012 017 Overview: 11/22/2012Patient was seen at [facility] [place] on November 22 for pelvic pain in . An ultrasound was done on that date that revealed an intrauterine with moderate subchorionic hemorrhage inferior to the gestational sac. Second area of an anechoic avascular changes right lateral to the gestational sac may be a blighted twin gestation versus subchorionic hemorrhage. Estimated gestational age at 7 weeks 6 days.Patient states that she has been noticing the pain occurring less often since she was seen at the hospital. She denies any bleeding this . She denies any pelvic pain today. [facility] ultrasound sent to Dr. Beltre's office for review. Abdominal pain 09/20/2012 01/03/2013 Acute cholecystitis with chronic cholecystitis 0 09/20/2012 01/03/2013 documented as of this encounter (statuses as of 11/03/2022) [facility]01-09-2023 History of Past illness Narrative* Problem Noted Date Resolved Date 32 weeks gestation of 08/31/2022 09/10/2022 Mother currently breast-feeding 08/31/2022 09/10/2022 Limited care, antepartum 06/17/2021 09/10/2022 Abnormal glucose in , antepartum 202009/10/2022 Overview: Did not do 3hr GTT. Checking BS with some elevated reading. Will see drug and alcohol counsellor. Robyn Mccartney MD Unplanned 12/05/2020 09/10/2022 Overview: 12/05/2020atient is here with father the baby. This is a surprise .TKRN with history of section, ante 12/05/2020 09/10/2022 Overview: 12/05/2020t had 4 previous C section. She desires a repeat C section by Dr. Vallejo. TKRN Nausea and vomiting in 12/05/2020 09/10/2022 Overview: 12/05/2020atient is complaining of nausea and occasional vomiting in . Dietary considerations discussed . Vitamin B6 recommended. Advised patient to call/come in if she is unable to keep any food or fluids down in a 24-hour period.TKRN Group B Streptococcus carrier, antepartum 201606/10/2017 Chest wall pain 08/12/2016 11/24/2016 High-risk supervision 05/04/2013 11/04/2016 Drug dependence complicating 3 06/10/2017 Overview: May 04, 2013 referred to steps for evaluation Abnormal finding on screen 02/27/2013 11/04/2016 Overview: Sequential screen risk increased from 1:4300 to 1:180 But screen negative overall since cutoff for positive is 1:100. Attempted to reach patient to review results and offer amniocentesis if desired, unable to reach, Will discuss at next visit if still unable to reach. SM UTI in 11/28/2012 08/26/2016 Overview: 11/28/12 - rx given, needs ABA - KK Previous section 11/24/20122016 Overview: 11/24/2012Pt had two previous C sections, one in [place] and the other at [facility]. She desires a repeat C section by Dr. Mercedes Beltre .Patient signed a release of records form to obtain her previous report from [facility]. Tobacco use during , antepartum 013 09/10/2022 Overview: 1Pt smokes 1 pack a day of cigarettes, down from 2 packs/day a day. Discussed risks of smoking during . Advised pt to quit. TKRN Exposure to parvovirus 11/24/2012 7 Overview: 11/24/2012Patient states she was exposed to parvovirus, see linked telephone note from November 14. Patient had a negative parvovirus IgG and IgM on November 14. Repeat labs in [address] Vallejo. January 03, 2013 RR- recheck today Dysuria in 11/24/2012 11/24/2016 Overview: 11/24/2012Patient states she has noted dysuria on and off for several weeks. She denies any dysuria for the past 3 days. Urine culture ordered by Dr. Nails. Pelvic pain in 11/24/2012 017 Overview: 11/22/2012Patient was seen at [facility] [place] on November 22 for pelvic pain in . An ultrasound was done on that date that revealed an intrauterine with moderate subchorionic hemorrhage inferior to the gestational sac. Second area of an anechoic avascular changes right lateral to the gestational sac may be a blighted twin gestation versus subchorionic hemorrhage. Estimated gestational age at 7 weeks 6 days.Patient states that she has been noticing the pain occurring less often since she was seen at the hospital. She denies any bleeding this . She denies any pelvic pain today. [facility] ultrasound sent to Dr. Beltre's office for review. Abdominal pain 09/20/2012 01/03/2013 Acute cholecystitis with chronic cholecystitis 0 09/20/2012 01/03/2013 documented as of this encounter (statuses as of 11/16/2022) [facility]01-[facility] History of Past illness Narrative* Problem Noted Date Resolved Date 32 weeks gestation of 08/31/2022 09/10/2022 Mother currently breast-feeding 08/31/2022 09/10/2022 Limited care, antepartum 06/17/2021 09/10/2022 Abnormal glucose in , antepartum 202009/10/2022 Overview: Did not do 3hr GTT. Checking BS with some elevated reading. Will see drug and alcohol counsellor. Robyn Mccartney MD Unplanned 12/05/2020 09/10/2022 Overview: 12/05/2020atient is here with father the baby. This is a surprise .TKRN with history of section, ante 12/05/2020 09/10/2022 Overview: 12/05/2020t had 4 previous C section. She desires a repeat C section by Dr. Vallejo. TKRN Nausea and vomiting in 12/05/2020 09/10/2022 Overview: 12/05/2020atient is complaining of nausea and occasional vomiting in . Dietary considerations discussed . Vitamin B6 recommended. Advised patient to call/come in if she is unable to keep any food or fluids down in a 24-hour period.TKRN Group B Streptococcus carrier, antepartum 201606/10/2017 Chest wall pain 08/12/2016 11/24/2016 High-risk supervision 05/04/2013 11/04/2016 Drug dependence complicating 3 06/10/2017 Overview: May 04, 2013 referred to steps for evaluation Abnormal finding on screen 02/27/2013 11/04/2016 Overview: Sequential screen risk increased from 1:4300 to 1:180 But screen negative overall since cutoff for positive is 1:100. Attempted to reach patient to review results and offer amniocentesis if desired, unable to reach, Will discuss at next visit if still unable to reach. SM UTI in 11/28/2012 08/26/2016 Overview: 11/28/12 - rx given, needs ABA - KK Previous section 11/24/20122016 Overview: 11/24/2012Pt had two previous C sections, one in [place] and the other at [facility]. She desires a repeat C section by Dr. Mercedes Beltre .Patient signed a release of records form to obtain her previous report from [facility]. Tobacco use during , antepartum 013 09/10/2022 Overview: 1Pt smokes 1 pack a day of cigarettes, down from 2 packs/day a day. Discussed risks of smoking during . Advised pt to quit. TKRN Exposure to parvovirus 11/24/2012 7 Overview: 11/24/2012Patient states she was exposed to parvovirus, see linked telephone note from November 14. Patient had a negative parvovirus IgG and IgM on November 14. Repeat labs in [address] Vallejo. January 03, 2013 RR- recheck today Dysuria in 11/24/2012 11/24/2016 Overview: 11/24/2012Patient states she has noted dysuria on and off for several weeks. She denies any dysuria for the past 3 days. Urine culture ordered by Dr. Nails. Pelvic pain in 11/24/2012 017 Overview: 11/22/2012Patient was seen at [facility] [place] on November 22 for pelvic pain in . An ultrasound was done on that date that revealed an intrauterine with moderate subchorionic hemorrhage inferior to the gestational sac. Second area of an anechoic avascular changes right lateral to the gestational sac may be a blighted twin gestation versus subchorionic hemorrhage. Estimated gestational age at 7 weeks 6 days.Patient states that she has been noticing the pain occurring less often since she was seen at the hospital. She denies any bleeding this . She denies any pelvic pain today. [facility] ultrasound sent to Dr. Beltre's office for review. Abdominal pain 09/20/2012 01/03/2013 Acute cholecystitis with chronic cholecystitis 0 09/20/2012 01/03/2013 documented as of this encounter (statuses as of 11/19/2022) [facility]01-09[facility] History of Past illness Narrative* Problem Noted Date Resolved Date 32 weeks gestation of 08/31/2022 09/10/2022 Mother currently breast-feeding 08/31/2022 09/10/2022 Limited care, antepartum 06/17/2021 09/10/2022 Abnormal glucose in , antepartum 202009/10/2022 Overview: Did not do 3hr GTT. Checking BS with some elevated reading. Will see drug and alcohol counsellor. Robyn Mccartney MD Unplanned 12/05/2020 09/10/2022 Overview: 12/05/2020atient is here with father the baby. This is a surprise .TKRN with history of section, ante 12/05/2020 09/10/2022 Overview: 12/05/2020t had 4 previous C section. She desires a repeat C section by Dr. Vallejo. TKRN Nausea and vomiting in 12/05/2020 09/10/2022 Overview: 12/05/2020atient is complaining of nausea and occasional vomiting in . Dietary considerations discussed . Vitamin B6 recommended. Advised patient to call/come in if she is unable to keep any food or fluids down in a 24-hour period.TKRN Group B Streptococcus carrier, antepartum 201606/10/2017 Chest wall pain 08/12/2016 11/24/2016 High-risk supervision 05/04/2013 11/04/2016 Drug dependence complicating 3 06/10/2017 Overview: May 04, 2013 referred to steps for evaluation Abnormal finding on screen 02/27/2013 11/04/2016 Overview: Sequential screen risk increased from 1:4300 to 1:180 But screen negative overall since cutoff for positive is 1:100. Attempted to reach patient to review results and offer amniocentesis if desired, unable to reach, Will discuss at next visit if still unable to reach. SM UTI in 11/28/2012 08/26/2016 Overview: 11/28/12 - rx given, needs ABA - KK Previous section 11/24/20122016 Overview: 11/24/2012Pt had two previous C sections, one in [place] and the other at [facility]. She desires a repeat C section by Dr. Mercedes Beltre .Patient signed a release of records form to obtain her previous report from [facility]. Tobacco use during , antepartum 013 09/10/2022 Overview: 1Pt smokes 1 pack a day of cigarettes, down from 2 packs/day a day. Discussed risks of smoking during . Advised pt to quit. TKRN Exposure to parvovirus 11/24/2012 7 Overview: 11/24/2012Patient states she was exposed to parvovirus, see linked telephone note from November 14. Patient had a negative parvovirus IgG and IgM on November 14. Repeat labs in [address] Vallejo. January 03, 2013 RR- recheck today Dysuria in 11/24/2012 11/24/2016 Overview: 11/24/2012Patient states she has noted dysuria on and off for several weeks. She denies any dysuria for the past 3 days. Urine culture ordered by Dr. Nails. Pelvic pain in 11/24/2012 017 Overview: 11/22/2012Patient was seen at [facility] [place] on November 22 for pelvic pain in . An ultrasound was done on that date that revealed an intrauterine with moderate subchorionic hemorrhage inferior to the gestational sac. Second area of an anechoic avascular changes right lateral to the gestational sac may be a blighted twin gestation versus subchorionic hemorrhage. Estimated gestational age at 7 weeks 6 days.Patient states that she has been noticing the pain occurring less often since she was seen at the hospital. She denies any bleeding this . She denies any pelvic pain today. [facility] ultrasound sent to Dr. Beltre's office for review. Abdominal pain 09/20/2012 01/03/2013 Acute cholecystitis with chronic cholecystitis 0 09/20/2012 01/03/2013 documented as of this encounter (statuses as of 12/10/2022) [facility]01-09[facility] History of Past illness Narrative* Problem Noted Date Resolved Date 32 weeks gestation of 08/31/2022 09/10/2022 Mother currently breast-feeding 08/31/2022 09/10/2022 Limited care, antepartum 06/17/2021 09/10/2022 Abnormal glucose in , antepartum 202009/10/2022 Overview: Did not do 3hr GTT. Checking BS with some elevated reading. Will see drug and alcohol counsellor. Robyn Mccartney MD Unplanned 12/05/2020 09/10/2022 Overview: 12/05/2020atient is here with father the baby. This is a surprise .TKRN with history of section, ante 12/05/2020 09/10/2022 Overview: 12/05/2020t had 4 previous C section. She desires a repeat C section by Dr. Vallejo. TKRN Nausea and vomiting in 12/05/2020 09/10/2022 Overview: 12/05/2020atient is complaining of nausea and occasional vomiting in . Dietary considerations discussed . Vitamin B6 recommended. Advised patient to call/come in if she is unable to keep any food or fluids down in a 24-hour period.TKRN Group B Streptococcus carrier, antepartum 201606/10/2017 Chest wall pain 08/12/2016 11/24/2016 High-risk supervision 05/04/2013 11/04/2016 Drug dependence complicating 3 06/10/2017 Overview: May 04, 2013 referred to steps for evaluation Abnormal finding on screen 02/27/2013 11/04/2016 Overview: Sequential screen risk increased from 1:4300 to 1:180 But screen negative overall since cutoff for positive is 1:100. Attempted to reach patient to review results and offer amniocentesis if desired, unable to reach, Will discuss at next visit if still unable to reach. SM UTI in 11/28/2012 08/26/2016 Overview: 11/28/12 - rx given, needs ABA - KK Previous section 11/24/20122016 Overview: 11/24/2012Pt had two previous C sections, one in [place] and the other at [facility]. She desires a repeat C section by Dr. Mercedes Beltre .Patient signed a release of records form to obtain her previous report from [facility]. Tobacco use during , antepartum 013 09/10/2022 Overview: 1Pt smokes 1 pack a day of cigarettes, down from 2 packs/day a day. Discussed risks of smoking during . Advised pt to quit. TKRN Exposure to parvovirus 11/24/2012 7 Overview: 11/24/2012Patient states she was exposed to parvovirus, see linked telephone note from November 14. Patient had a negative parvovirus IgG and IgM on November 14. Repeat labs in [address] Vallejo. January 03, 2013 RR- recheck today Dysuria in 11/24/2012 11/24/2016 Overview: 11/24/2012Patient states she has noted dysuria on and off for several weeks. She denies any dysuria for the past 3 days. Urine culture ordered by Dr. Nails. Pelvic pain in 11/24/2012 017 Overview: 11/22/2012Patient was seen at [facility] [place] on November 22 for pelvic pain in . An ultrasound was done on that date that revealed an intrauterine with moderate subchorionic hemorrhage inferior to the gestational sac. Second area of an anechoic avascular changes right lateral to the gestational sac may be a blighted twin gestation versus subchorionic hemorrhage. Estimated gestational age at 7 weeks 6 days.Patient states that she has been noticing the pain occurring less often since she was seen at the hospital. She denies any bleeding this . She denies any pelvic pain today. [facility] ultrasound sent to Dr. Beltre's office for review. Abdominal pain 09/20/2012 01/03/2013 Acute cholecystitis with chronic cholecystitis 0 09/20/2012 01/03/2013 documented as of this encounter (statuses as of 02/04/2023) [facility] History of Past illness Narrative* Problem Noted Date Resolved Date 32 weeks gestation of 08/31/2022 09/10/2022 Mother currently breast-feeding 08/31/2022 09/10/2022 Limited care, antepartum 06/17/2021 09/10/2022 Abnormal glucose in , antepartum 202009/10/2022 Overview: Did not do 3hr GTT. Checking BS with some elevated reading. Will see drug and alcohol counsellor. Robyn Mccartney MD Unplanned 12/05/2020 09/10/2022 Overview: 12/05/2020atient is here with father the baby. This is a surprise .TKRN with history of section, ante 12/05/2020 09/10/2022 Overview: 12/05/2020t had 4 previous C section. She desires a repeat C section by Dr. Vallejo. TKRN Nausea and vomiting in 12/05/2020 09/10/2022 Overview: 12/05/2020atient is complaining of nausea and occasional vomiting in . Dietary considerations discussed . Vitamin B6 recommended. Advised patient to call/come in if she is unable to keep any food or fluids down in a 24-hour period.TKRN Group B Streptococcus carrier, antepartum 201606/10/2017 Chest wall pain 08/12/2016 11/24/2016 High-risk supervision 05/04/2013 11/04/2016 Drug dependence complicating 3 06/10/2017 Overview: May 04, 2013 referred to steps for evaluation Abnormal finding on screen 02/27/2013 11/04/2016 Overview: Sequential screen risk increased from 1:4300 to 1:180 But screen negative overall since cutoff for positive is 1:100. Attempted to reach patient to review results and offer amniocentesis if desired, unable to reach, Will discuss at next visit if still unable to reach. SM UTI in 11/28/2012 08/26/2016 Overview: 11/28/12 - rx given, needs ABA - KK Previous section 11/24/20122016 Overview: 11/24/2012Pt had two previous C sections, one in [place] and the other at [facility]. She desires a repeat C section by Dr. Mercedes Beltre .Patient signed a release of records form to obtain her previous report from [facility]. Tobacco use during , antepartum 013 09/10/2022 Overview: 1Pt smokes 1 pack a day of cigarettes, down from 2 packs/day a day. Discussed risks of smoking during . Advised pt to quit. TKRN Exposure to parvovirus 11/24/2012 7 Overview: 11/24/2012Patient states she was exposed to parvovirus, see linked telephone note from November 14. Patient had a negative parvovirus IgG and IgM on November 14. Repeat labs in [address] Vallejo. January 03, 2013 RR- recheck today Dysuria in 11/24/2012 11/24/2016 Overview: 11/24/2012Patient states she has noted dysuria on and off for several weeks. She denies any dysuria for the past 3 days. Urine culture ordered by Dr. Nails. Pelvic pain in 11/24/2012 017 Overview: 11/22/2012Patient was seen at [facility] [place] on November 22 for pelvic pain in . An ultrasound was done on that date that revealed an intrauterine with moderate subchorionic hemorrhage inferior to the gestational sac. Second area of an anechoic avascular changes right lateral to the gestational sac may be a blighted twin gestation versus subchorionic hemorrhage. Estimated gestational age at 7 weeks 6 days.Patient states that she has been noticing the pain occurring less often since she was seen at the hospital. She denies any bleeding this . She denies any pelvic pain today. [facility] ultrasound sent to Dr. Beltre's office for review. Abdominal pain 09/20/2012 01/03/2013 Acute cholecystitis with chronic cholecystitis 0 09/20/2012 01/03/2013 documented as of this encounter (statuses as of 02/26/2023) [facility] History of Past illness Narrative* Problem Noted Date Diagnosed Date Resolved Date 32 weeks gestation of 08/31/2022 09/10/2022 Mother currently breast-feeding 08/31/2022 09/10/2022 Limited care, antepartum 06/17/2021 09/10/2022 Abnormal glucose in , antepartum 04/02/2021 09/10/2022 Overview: Did not do 3hr GTT. Checking BS with some elevated reading. Will see drug and alcohol counsellor. Robyn Mccartney MD Unplanned 12/05/2020 09/10/19 Overview: 12/05/2020atient is here with father the baby. This is a surprise .TKRN with history of ce sarean section, antepartum 12/05/2020 09/10/2022 Overview: 12/05/2020t had 4 previous C section. She desires a repeat C section by Dr. Vallejo. TKRN Nausea and vomiting in 12/05/2020 09/10/2022 Overview: 12/05/2020atient is complaining of nausea and occasional vomiting in . Dietary considerations discussed . Vitamin B6 recommended. Advised patient to call/come in if she is unable to keep any food or fluids down in a 24-hour period.TKRN Group B Streptococcus carrier, antepartum 05/18/2017 06/10/2017 Chest wall pain 08/12/2016 11/24/2016 High-risk supervision 05/04/2013 11/04/2016 Drug dependence complicating 05/04/2013 06/10/2017 Overview: May 04, 2013 referred to steps for evaluation Abnormal finding on screen 02/27/2013 11/04/2016 Overview: Sequential screen risk increased from 1:4300 to 1:180 But screen negative overall since cutoff for positive is 1:100. Attempted to reach patient to review results and offer amniocentesis if desired, unable to reach, Will discuss at next visit if still unable to reach. SM UTI in 11/28/2012 08/26/2016 Overview: 11/28/12 - rx given, needs ABA - KK Previous section 11/24/2012 Overview: 11/24/2012Pt had two previous C sections, one in [place] and the other at [facility]. She desires a repeat C section by Dr. Mercedes Beltre .Patient signed a release of records form to obtain her previous report from [facility]. Tobacco use during , antepartum 11/24/2012 09/10/2022 Overview: 1Pt smokes 1 pack a day of cigarettes, down from 2 packs/day a day. Discussed risks of smoking during . Advised pt to quit. TKRN Exposure to parvovirus 11/24/201208/26 Overview: 11/24/2012Patient states she was exposed to parvovirus, see linked telephone note from November 14. Patient had a negative parvovirus IgG and IgM on November 14. Repeat labs in [address] Vallejo. January 03, 2013 RR- recheck today Dysuria in 11/24/2012 017 Overview: 11/24/2012Patient states she has noted dysuria on and off for several weeks. She denies any dysuria for the past 3 days. Urine culture ordered by Dr. Nails. Pelvic pain in 11/24/201211/2016 Overview: 11/22/2012Patient was seen at [facility] [place] on November 22 for pelvic pain in . An ultrasound was done on that date that revealed an intrauterine with moderate subchorionic hemorrhage inferior to the gestational sac. Second area of an anechoic avascular changes right lateral to the gestational sac may be a blighted twin gestation versus subchorionic hemorrhage. Estimated gestational age at 7 weeks 6 days.Patient states that she has been noticing the pain occurring less often since she was seen at the hospital. She denies any bleeding this . She denies any pelvic pain today. [facility] ultrasound sent to Dr. Beltre's office for review. Abdominal pain 09/20/2012 01/03/2013 Acute cholecystitis with chr onic cholecystitis 09/20/2012 01/03/2013 documented as of this encounter (statuses as of 03/26/2023) [facility] History of Past illness Narrative* Problem Noted Date Diagnosed Date Resolved Date 32 weeks gestation of 08/31/2022 09/10/2022 Mother currently breast-feeding 08/31/2022 09/10/2022 Limited care, antepartum 06/17/2021 09/10/2022 Abnormal glucose in , antepartum 04/02/2021 09/10/2022 Overview: Did not do 3hr GTT. Checking BS with some elevated reading. Will see drug and alcohol counsellor. Robyn Mccartney MD Unplanned 12/05/2020 09/10/19 23 Overview: 12/05/2020atient is here with father the baby. This is a surprise .TKRN with history of ce sarean section, antepartum 12/05/2020 09/10/2022 Overview: 12/05/2020t had 4 previous C section. She desires a repeat C section by Dr. Vallejo. TKRN Nausea and vomiting in 12/05/2020 09/10/2022 Overview: 04/15/2021Patient is complaining of nausea and occasional vomiting in . Dietary considerations discussed . Vitamin B6 recommended. Advised patient to call/come in if she is unable to keep any food or fluids down in a 24-hour period.TKRN Group B Streptococcus carrier, antepartum 05/18/2017 06/10/2017 Chest wall pain 08/12/2016 11/24/2016 High-risk supervision 05/04/2013 11/04/2016 Drug dependence complicating 05/04/2013 06/10/2017 Overview: May 04, 2013 referred to steps for evaluation Abnormal finding on screen 02/27/2013 11/04/2016 Overview: Sequential screen risk increased from 1:4300 to 1:180 But screen negative overall since cutoff for positive is 1:100. Attempted to reach patient to review results and offer amniocentesis if desired, unable to reach, Will discuss at next visit if still unable to reach. SM UTI in 11/28/2012 08/26/2016 Overview: 11/28/12 - rx given, needs ABA - KK Previous section 11/24/2012 Overview: 11/24/2012Pt had two previous C sections, one in [place] and the other at [facility]. She desires a repeat C section by Dr. Mercedes Beltre .Patient signed a release of records form to obtain her previous report from [facility]. Tobacco use during , antepartum 11/24/2012 09/10/2022 Overview: 1Pt smokes 1 pack a day of cigarettes, down from 2 packs/day a day. Discussed risks of smoking during . Advised pt to quit. TKRN Exposure to parvovirus 11/24/201208/26 Overview: 11/24/2012Patient states she was exposed to parvovirus, see linked telephone note from November 14. Patient had a negative parvovirus IgG and IgM on November 14. Repeat labs in [address] Vallejo. January 03, 2013 RR- recheck today Dysuria in 11/24/2012 017 Overview: 11/24/2012Patient states she has noted dysuria on and off for several weeks. She denies any dysuria for the past 3 days. Urine culture ordered by Dr. Nails. Pelvic pain in 11/24/201211/2016 Overview: 11/22/2012Patient was seen at [facility] [place] on November 22 for pelvic pain in . An ultrasound was done on that date that revealed an intrauterine with moderate subchorionic hemorrhage inferior to the gestational sac. Second area of an anechoic avascular changes right lateral to the gestational sac may be a blighted twin gestation versus subchorionic hemorrhage. Estimated gestational age at 7 weeks 6 days.Patient states that she has been noticing the pain occurring less often since she was seen at the hospital. She denies any bleeding this . She denies any pelvic pain today. [facility] ultrasound sent to Dr. Beltre's office for review. Abdominal pain 09/20/2012 01/03/2013 Acute cholecystitis with chr onic cholecystitis 09/20/2012 01/03/2013 documented as of this encounter (statuses as of 04/09/2023) [facility]01-09[facility]2023 History of Past illness Narrative* Problem Noted Date Diagnosed Date Resolved Date 32 weeks gestation of 08/31/2022 09/10/2022 Mother currently breast-feeding 08/31/2022 09/10/2022 Limited care, antepartum 06/17/2021 09/10/2022 Abnormal glucose in , antepartum 04/02/2021 09/10/2022 Overview: Did not do 3hr GTT. Checking BS with some elevated reading. Will see drug and alcohol counsellor. Robyn Mccartney MD Unplanned 12/05/2020 09/10/19 23 Overview: 12/05/2020atient is here with father the baby. This is a surprise .TKRN with history of ce sarean section, antepartum 12/05/2020 09/10/2022 Overview: 12/05/2020t had 4 previous C section. She desires a repeat C section by Dr. Vallejo. TKRN Nausea and vomiting in 12/05/2020 09/10/2022 Overview: 12/05/2020atient is complaining of nausea and occasional vomiting in . Dietary considerations discussed . Vitamin B6 recommended. Advised patient to call/come in if she is unable to keep any food or fluids down in a 24-hour period.TKRN Group B Streptococcus carrier, antepartum 05/18/2017 06/10/2017 Chest wall pain 08/12/2016 11/24/2016 High-risk supervision 05/04/2013 11/04/2016 Drug dependence complicating 05/04/2013 06/10/2017 Overview: May 04, 2013 referred to steps for evaluation Abnormal finding on screen 02/27/2013 11/04/2016 Overview: Sequential screen risk increased from 1:4300 to 1:180 But screen negative overall since cutoff for positive is 1:100. Attempted to reach patient to review results and offer amniocentesis if desired, unable to reach, Will discuss at next visit if still unable to reach. SM UTI in 11/28/2012 08/26/2016 Overview: 11/28/12 - rx given, needs ABA - KK Previous section 11/24/2012 Overview: 11/24/2012Pt had two previous C sections, one in [place] and the other at [facility]. She desires a repeat C section by Dr. Mercedes Beltre .Patient signed a release of records form to obtain her previous report from [facility]. Tobacco use during , antepartum 11/24/2012 09/10/2022 Overview: 12/05/2020t smokes 1 pack a day of cigarettes, down from 2 packs/day a day. Discussed risks of smoking during . Advised pt to quit. TKRN Exposure to parvovirus 11/24/201208/26 Overview: 11/24/2012Patient states she was exposed to parvovirus, see linked telephone note from November 14. Patient had a negative parvovirus IgG and IgM on November 14. Repeat labs in [address] Vallejo. January 03, 2013 RR- recheck today Dysuria in 11/24/2012 017 Overview: 11/24/2012Patient states she has noted dysuria on and off for several weeks. She denies any dysuria for the past 3 days. Urine culture ordered by Dr. Nails. Pelvic pain in 11/24/201211/2016 Overview: 11/22/2012Patient was seen at [facility] [place] on November 22 for pelvic pain in . An ultrasound was done on that date that revealed an intrauterine with moderate subchorionic hemorrhage inferior to the gestational sac. Second area of an anechoic avascular changes right lateral to the gestational sac may be a blighted twin gestation versus subchorionic hemorrhage. Estimated gestational age at 7 weeks 6 days.Patient states that she has been noticing the pain occurring less often since she was seen at the hospital. She denies any bleeding this . She denies any pelvic pain today. [facility] ultrasound sent to Dr. Beltre's office for review. Abdominal pain 09/20/2012 01/03/2013 Acute cholecystitis with chr onic cholecystitis 09/20/2012 01/03/2013 documented as of this encounter (statuses as of 04/21/2023) [facility] History of Past illness Narrative* Problem Noted Date Diagnosed Date Resolved Date 32 weeks gestation of 08/31/2022 09/10/2022 Mother currently breast-feeding 08/31/2022 09/10/2022 Limited care, antepartum 06/17/2021 09/10/2022 Abnormal glucose in , antepartum 04/02/2021 09/10/2022 Overview: Did not do 3hr GTT. Checking BS with some elevated reading. Will see drug and alcohol counsellor. Robyn Mccartney MD Unplanned 12/05/2020 09/10/19 23 Overview: 12/05/2020atient is here with father the baby. This is a surprise .TKRN with history of ce sarean section, antepartum 12/05/2020 09/10/2022 Overview: 12/05/2020t had 4 previous C section. She desires a repeat C section by Dr. Vallejo. TKRN Nausea and vomiting in 12/05/2020 09/10/2022 Overview: 12/05/2020atient is complaining of nausea and occasional vomiting in . Dietary considerations discussed . Vitamin B6 recommended. Advised patient to call/come in if she is unable to keep any food or fluids down in a 24-hour period.TKRN Group B Streptococcus carrier, antepartum 05/18/2017 06/10/2017 Chest wall pain 08/12/2016 11/24/2016 High-risk supervision 05/04/2013 11/04/2016 Drug dependence complicating 05/04/2013 06/10/2017 Overview: May 04, 2013 referred to steps for evaluation Abnormal finding on screen 02/27/2013 11/04/2016 Overview: Sequential screen risk increased from 1:4300 to 1:180 But screen negative overall since cutoff for positive is 1:100. Attempted to reach patient to review results and offer amniocentesis if desired, unable to reach, Will discuss at next visit if still unable to reach. SM UTI in 11/28/2012 08/26/2016 Overview: 11/28/12 - rx given, needs ABA - KK Previous section 11/24/2012 Overview: 11/24/2012Pt had two previous C sections, one in [place] and the other at [facility]. She desires a repeat C section by Dr. Mercedes Beltre .Patient signed a release of records form to obtain her previous report from [facility]. Tobacco use during , antepartum 11/24/2012 09/10/2022 Overview: 1Pt smokes 1 pack a day of cigarettes, down from 2 packs/day a day. Discussed risks of smoking during . Advised pt to quit. TKRN Exposure to parvovirus 11/24/201208/26 Overview: 11/24/2012Patient states she was exposed to parvovirus, see linked telephone note from November 14. Patient had a negative parvovirus IgG and IgM on November 14. Repeat labs in [address] Vallejo. January 03, 2013 RR- recheck today Dysuria in 11/24/2012 017 Overview: 11/24/2012Patient states she has noted dysuria on and off for several weeks. She denies any dysuria for the past 3 days. Urine culture ordered by Dr. Nails. Pelvic pain in 11/24/201211/2016 Overview: 11/22/2012Patient was seen at [facility] [place] on November 22 for pelvic pain in . An ultrasound was done on that date that revealed an intrauterine with moderate subchorionic hemorrhage inferior to the gestational sac. Second area of an anechoic avascular changes right lateral to the gestational sac may be a blighted twin gestation versus subchorionic hemorrhage. Estimated gestational age at 7 weeks 6 days.Patient states that she has been noticing the pain occurring less often since she was seen at the hospital. She denies any bleeding this . She denies any pelvic pain today. [facility] ultrasound sent to Dr. Beltre's office for review. Abdominal pain 09/20/2012 01/03/2013 Acute cholecystitis with chr onic cholecystitis 09/20/2012 01/03/2013 documented as of this encounter (statuses as of 04/23/2023) [facility] History of Past illness Narrative* Problem Noted Date Diagnosed Date Resolved Date 32 weeks gestation of 08/31/2022 09/10/2022 Mother currently breast-feeding 08/31/2022 09/10/2022 Limited care, antepartum 06/17/2021 09/10/2022 Abnormal glucose in , antepartum 04/02/2021 09/10/2022 Overview: Did not do 3hr GTT. Checking BS with some elevated reading. Will see drug and alcohol counsellor. Robyn Mccartney MD Unplanned 12/05/2020 09/10/19 23 Overview: 12/05/2020atient is here with father the baby. This is a surprise .TKRN with history of ce sarean section, antepartum 12/05/2020 09/10/2022 Overview: 12/05/2020t had 4 previous C section. She desires a repeat C section by Dr. Vallejo. TKRN Nausea and vomiting in 12/05/2020 09/10/2022 Overview: 12/05/2020atient is complaining of nausea and occasional vomiting in . Dietary considerations discussed . Vitamin B6 recommended. Advised patient to call/come in if she is unable to keep any food or fluids down in a 24-hour period.TKRN Group B Streptococcus carrier, antepartum 05/18/2017 06/10/2017 Chest wall pain 08/12/2016 11/24/2016 High-risk supervision 05/04/2013 11/04/2016 Drug dependence complicating 05/04/2013 06/10/2017 Overview: May 04, 2013 referred to steps for evaluation Abnormal finding on screen 02/27/2013 11/04/2016 Overview: Sequential screen risk increased from 1:4300 to 1:180 But screen negative overall since cutoff for positive is 1:100. Attempted to reach patient to review results and offer amniocentesis if desired, unable to reach, Will discuss at next visit if still unable to reach. SM UTI in 11/28/2012 08/26/2016 Overview: 11/28/12 - rx given, needs ABA - KK Previous section 11/24/2012 Overview: 11/24/2012Pt had two previous C sections, one in [place] and the other at [facility]. She desires a repeat C section by Dr. Mercedes Beltre .Patient signed a release of records form to obtain her previous report from [facility]. Tobacco use during , antepartum 11/24/2012 09/10/2022 Overview: 1Pt smokes 1 pack a day of cigarettes, down from 2 packs/day a day. Discussed risks of smoking during . Advised pt to quit. TKRN Exposure to parvovirus 11/24/201208/26 Overview: 11/24/2012Patient states she was exposed to parvovirus, see linked telephone note from November 14. Patient had a negative parvovirus IgG and IgM on November 14. Repeat labs in [address] Vallejo. January 03, 2013 RR- recheck today Dysuria in 11/24/2012 017 Overview: 11/24/2012Patient states she has noted dysuria on and off for several weeks. She denies any dysuria for the past 3 days. Urine culture ordered by Dr. Nails. Pelvic pain in 11/24/201211/2016 Overview: 11/22/2012Patient was seen at [facility] [place] on November 22 for pelvic pain in . An ultrasound was done on that date that revealed an intrauterine with moderate subchorionic hemorrhage inferior to the gestational sac. Second area of an anechoic avascular changes right lateral to the gestational sac may be a blighted twin gestation versus subchorionic hemorrhage. Estimated gestational age at 7 weeks 6 days.Patient states that she has been noticing the pain occurring less often since she was seen at the hospital. She denies any bleeding this . She denies any pelvic pain today. [facility] ultrasound sent to Dr. Beltre's office for review. Abdominal pain 09/20/2012 01/03/2013 Acute cholecystitis with chr onic cholecystitis 09/20/2012 01/03/2013 documented as of this encounter (statuses as of 04/24/2023) [facility]01-[facility] History of Past illness Narrative* Problem Noted Date Diagnosed Date Resolved Date 32 weeks gestation of 08/31/2022 09/10/2022 Mother currently breast-feeding 08/31/2022 09/10/2022 Limited care, antepartum 06/17/2021 09/10/2022 Abnormal glucose in , antepartum 04/02/2021 09/10/2022 Overview: Did not do 3hr GTT. Checking BS with some elevated reading. Will see drug and alcohol counsellor. Robyn Mccartney MD Unplanned 12/05/2020 09/10/19 Overview: 12/05/2020atient is here with father the baby. This is a surprise .TKRN with history of ce sarean section, antepartum 12/05/2020 09/10/2022 Overview: 12/05/2020t had 4 previous C section. She desires a repeat C section by Dr. Vallejo. TKRN Nausea and vomiting in 12/05/2020 09/10/2022 Overview: 12/05/2020atient is complaining of nausea and occasional vomiting in . Dietary considerations discussed . Vitamin B6 recommended. Advised patient to call/come in if she is unable to keep any food or fluids down in a 24-hour period.TKRN Group B Streptococcus carrier, antepartum 05/18/2017 06/10/2017 Chest wall pain 08/12/2016 11/24/2016 High-risk supervision 05/04/2013 11/04/2016 Drug dependence complicating 05/04/2013 06/10/2017 Overview: May 04, 2013 referred to steps for evaluation Abnormal finding on screen 02/27/2013 11/04/2016 Overview: Sequential screen risk increased from 1:4300 to 1:180 But screen negative overall since cutoff for positive is 1:100. Attempted to reach patient to review results and offer amniocentesis if desired, unable to reach, Will discuss at next visit if still unable to reach. SM UTI in 11/28/2012 08/26/2016 Overview: 11/28/12 - rx given, needs ABA - KK Previous section 11/24/2012 Overview: 11/24/2012Pt had two previous C sections, one in [place] and the other at [facility]. She desires a repeat C section by Dr. Mercedes Beltre .Patient signed a release of records form to obtain her previous report from [facility]. Tobacco use during , antepartum 11/24/2012 09/10/2022 Overview: 1Pt smokes 1 pack a day of cigarettes, down from 2 packs/day a day. Discussed risks of smoking during . Advised pt to quit. TKRN Exposure to parvovirus 11/24/201208/26 Overview: 11/24/2012Patient states she was exposed to parvovirus, see linked telephone note from November 14. Patient had a negative parvovirus IgG and IgM on November 14. Repeat labs in [address] Vallejo. January 03, 2013 RR- recheck today Dysuria in 11/24/2012 017 Overview: 11/24/2012Patient states she has noted dysuria on and off for several weeks. She denies any dysuria for the past 3 days. Urine culture ordered by Dr. Nails. Pelvic pain in 11/24/201211/2016 Overview: 11/22/2012Patient was seen at [facility] [place] on November 22 for pelvic pain in . An ultrasound was done on that date that revealed an intrauterine with moderate subchorionic hemorrhage inferior to the gestational sac. Second area of an anechoic avascular changes right lateral to the gestational sac may be a blighted twin gestation versus subchorionic hemorrhage. Estimated gestational age at 7 weeks 6 days.Patient states that she has been noticing the pain occurring less often since she was seen at the hospital. She denies any bleeding this . She denies any pelvic pain today. [facility] ultrasound sent to Dr. Beltre's office for review. Abdominal pain 09/20/2012 01/03/2013 Acute cholecystitis with chr onic cholecystitis 09/20/2012 01/03/2013 documented as of this encounter (statuses as of 05/14/2023) [facility] History of Past illness Narrative* Problem Noted Date Diagnosed Date Resolved Date 32 weeks gestation of 08/31/2022 09/10/2022 Mother currently breast-feeding 08/31/2022 09/10/2022 Limited care, antepartum 06/17/2021 09/10/2022 Abnormal glucose in , antepartum 04/02/2021 09/10/2022 Overview: Did not do 3hr GTT. Checking BS with some elevated reading. Will see drug and alcohol counsellor. Robyn Mccartney MD Unplanned 12/05/2020 09/10/19 23 Overview: 12/05/2020atient is here with father the baby. This is a surprise .TKRN with history of ce sarean section, antepartum 12/05/2020 09/10/2022 Overview: 12/05/2020t had 4 previous C section. She desires a repeat C section by Dr. Vallejo. TKRN Nausea and vomiting in 12/05/2020 09/10/2022 Overview: 12/05/2020atient is complaining of nausea and occasional vomiting in . Dietary considerations discussed . Vitamin B6 recommended. Advised patient to call/come in if she is unable to keep any food or fluids down in a 24-hour period.TKRN Group B Streptococcus carrier, antepartum 05/18/2017 06/10/2017 Chest wall pain 08/12/2016 11/24/2016 High-risk supervision 05/04/2013 11/04/2016 Drug dependence complicating 05/04/2013 06/10/2017 Overview: May 04, 2013 referred to steps for evaluation Abnormal finding on screen 02/27/2013 11/04/2016 Overview: Sequential screen risk increased from 1:4300 to 1:180 But screen negative overall since cutoff for positive is 1:100. Attempted to reach patient to review results and offer amniocentesis if desired, unable to reach, Will discuss at next visit if still unable to reach. SM UTI in 11/28/2012 08/26/2016 Overview: 11/28/12 - rx given, needs ABA - KK Previous section 11/24/2012 Overview: 11/24/2012Pt had two previous C sections, one in [place] and the other at [facility]. She desires a repeat C section by Dr. Mercedes Beltre .Patient signed a release of records form to obtain her previous report from [facility]. Tobacco use during , antepartum 11/24/2012 09/10/2022 Overview: 1Pt smokes 1 pack a day of cigarettes, down from 2 packs/day a day. Discussed risks of smoking during . Advised pt to quit. TKRN Exposure to parvovirus 11/24/201208/26 Overview: 11/24/2012Patient states she was exposed to parvovirus, see linked telephone note from November 14. Patient had a negative parvovirus IgG and IgM on November 14. Repeat labs in [address] Vallejo. January 03, 2013 RR- recheck today Dysuria in 11/24/2012 017 Overview: 11/24/2012Patient states she has noted dysuria on and off for several weeks. She denies any dysuria for the past 3 days. Urine culture ordered by Dr. Nails. Pelvic pain in 11/24/201211/2016 Overview: 11/22/2012Patient was seen at [facility] [place] on November 22 for pelvic pain in . An ultrasound was done on that date that revealed an intrauterine with moderate subchorionic hemorrhage inferior to the gestational sac. Second area of an anechoic avascular changes right lateral to the gestational sac may be a blighted twin gestation versus subchorionic hemorrhage. Estimated gestational age at 7 weeks 6 days.Patient states that she has been noticing the pain occurring less often since she was seen at the hospital. She denies any bleeding this . She denies any pelvic pain today. [facility] ultrasound sent to Dr. Beltre's office for review. Abdominal pain 09/20/2012 01/03/2013 Acute cholecystitis with chr onic cholecystitis 09/20/2012 01/03/2013 documented as of this encounter (statuses as of 06/22/2023) [facility] History of Past illness Narrative* Problem Noted Date Diagnosed Date Resolved Date 32 weeks gestation of 08/31/2022 09/10/2022 Mother currently breast-feeding 08/31/2022 09/10/2022 Limited care, antepartum 06/17/2021 09/10/2022 Abnormal glucose in , antepartum 04/02/2021 09/10/2022 Overview: Did not do 3hr GTT. Checking BS with some elevated reading. Will see drug and alcohol counsellor. Robyn Mccartney MD Unplanned 12/05/2020 09/10/19 23 Overview: 12/05/2020atient is here with father the baby. This is a surprise .TKRN with history of ce sarean section, antepartum 12/05/2020 09/10/2022 Overview: 12/05/2020t had 4 previous C section. She desires a repeat C section by Dr. Vallejo. TKRN Nausea and vomiting in 12/05/2020 09/10/2022 Overview: 1Patient is complaining of nausea and occasional vomiting in . Dietary considerations discussed . Vitamin B6 recommended. Advised patient to call/come in if she is unable to keep any food or fluids down in a 24-hour period.TKRN Group B Streptococcus carrier, antepartum 05/18/2017 06/10/2017 Chest wall pain 08/12/2016 11/24/2016 High-risk supervision 05/04/2013 11/04/2016 Drug dependence complicating 05/04/2013 06/10/2017 Overview: May 04, 2013 referred to steps for evaluation Abnormal finding on screen 02/27/2013 11/04/2016 Overview: Sequential screen risk increased from 1:4300 to 1:180 But screen negative overall since cutoff for positive is 1:100. Attempted to reach patient to review results and offer amniocentesis if desired, unable to reach, Will discuss at next visit if still unable to reach. SM UTI in 11/28/2012 08/26/2016 Overview: 11/28/12 - rx given, needs ABA - KK Previous section 11/24/2012 Overview: 11/24/2012Pt had two previous C sections, one in [place] and the other at [facility]. She desires a repeat C section by Dr. Mercedes Beltre .Patient signed a release of records form to obtain her previous report from [facility]. Tobacco use during , antepartum 11/24/2012 09/10/2022 Overview: 1Pt smokes 1 pack a day of cigarettes, down from 2 packs/day a day. Discussed risks of smoking during . Advised pt to quit. TKRN Exposure to parvovirus 11/24/201208/26 Overview: 11/24/2012Patient states she was exposed to parvovirus, see linked telephone note from November 14. Patient had a negative parvovirus IgG and IgM on November 14. Repeat labs in [address] Vallejo. January 03, 2013 RR- recheck today Dysuria in 11/24/2012 017 Overview: 11/24/2012Patient states she has noted dysuria on and off for several weeks. She denies any dysuria for the past 3 days. Urine culture ordered by Dr. Nails. Pelvic pain in 11/24/201211/2016 Overview: 11/22/2012Patient was seen at [facility] [place] on November 22 for pelvic pain in . An ultrasound was done on that date that revealed an intrauterine with moderate subchorionic hemorrhage inferior to the gestational sac. Second area of an anechoic avascular changes right lateral to the gestational sac may be a blighted twin gestation versus subchorionic hemorrhage. Estimated gestational age at 7 weeks 6 days.Patient states that she has been noticing the pain occurring less often since she was seen at the hospital. She denies any bleeding this . She denies any pelvic pain today. [facility] ultrasound sent to Dr. Beltre's office for review. Abdominal pain 09/20/2012 01/03/2013 Acute cholecystitis with chr onic cholecystitis 09/20/2012 01/03/2013 documented as of this encounter (statuses as of 06/22/2023) [facility] History of Past illness Narrative* Problem Noted Date Diagnosed Date Resolved Date 32 weeks gestation of 08/31/2022 09/10/2022 Mother currently breast-feeding 08/31/2022 09/10/2022 Limited care, antepartum 06/17/2021 09/10/2022 Abnormal glucose in , antepartum 04/02/2021 09/10/2022 Overview: Did not do 3hr GTT. Checking BS with some elevated reading. Will see drug and alcohol counsellor. Robyn Mccartney MD Unplanned 12/05/2020 09/10/19 23 Overview: 12/05/2020atient is here with father the baby. This is a surprise .TKRN with history of ce sarean section, antepartum 12/05/2020 09/10/2022 Overview: 12/05/2020t had 4 previous C section. She desires a repeat C section by Dr. Vallejo. TKRN Nausea and vomiting in 12/05/2020 09/10/2022 Overview: 12/05/2020atient is complaining of nausea and occasional vomiting in . Dietary considerations discussed . Vitamin B6 recommended. Advised patient to call/come in if she is unable to keep any food or fluids down in a 24-hour period.TKRN Group B Streptococcus carrier, antepartum 05/18/2017 06/10/2017 Chest wall pain 08/12/2016 11/24/2016 High-risk supervision 05/04/2013 11/04/2016 Drug dependence complicating 05/04/2013 06/10/2017 Overview: May 04, 2013 referred to steps for evaluation Abnormal finding on screen 02/27/2013 11/04/2016 Overview: Sequential screen risk increased from 1:4300 to 1:180 But screen negative overall since cutoff for positive is 1:100. Attempted to reach patient to review results and offer amniocentesis if desired, unable to reach, Will discuss at next visit if still unable to reach. SM UTI in 11/28/2012 08/26/2016 Overview: 11/28/12 - rx given, needs ABA - KK Previous section 11/24/2012 Overview: 11/24/2012Pt had two previous C sections, one in [place] and the other at [facility]. She desires a repeat C section by Dr. Mercedes Beltre .Patient signed a release of records form to obtain her previous report from [facility]. Tobacco use during , antepartum 11/24/2012 09/10/2022 Overview: 1Pt smokes 1 pack a day of cigarettes, down from 2 packs/day a day. Discussed risks of smoking during . Advised pt to quit. TKRN Exposure to parvovirus 11/24/201208/26 Overview: 11/24/2012Patient states she was exposed to parvovirus, see linked telephone note from November 14. Patient had a negative parvovirus IgG and IgM on November 14. Repeat labs in [address] Vallejo. January 03, 2013 RR- recheck today Dysuria in 11/24/2012 017 Overview: 11/24/2012Patient states she has noted dysuria on and off for several weeks. She denies any dysuria for the past 3 days. Urine culture ordered by Dr. Nails. Pelvic pain in 11/24/201211/2016 Overview: 11/22/2012Patient was seen at [facility] [place] on November 22 for pelvic pain in . An ultrasound was done on that date that revealed an intrauterine with moderate subchorionic hemorrhage inferior to the gestational sac. Second area of an anechoic avascular changes right lateral to the gestational sac may be a blighted twin gestation versus subchorionic hemorrhage. Estimated gestational age at 7 weeks 6 days.Patient states that she has been noticing the pain occurring less often since she was seen at the hospital. She denies any bleeding this . She denies any pelvic pain today. [facility] ultrasound sent to Dr. Beltre's office for review. Abdominal pain 09/20/2012 01/03/2013 Acute cholecystitis with chr onic cholecystitis 09/20/2012 01/03/2013 documented as of this encounter (statuses as of 06/24/2023) [facility]01-[facility] History of Past illness Narrative* Problem Noted Date Diagnosed Date Resolved Date 32 weeks gestation of 08/31/2022 09/10/2022 Mother currently breast-feeding 08/31/2022 09/10/2022 Limited care, antepartum 06/17/2021 09/10/2022 Abnormal glucose in , antepartum 04/02/2021 09/10/2022 Overview: Did not do 3hr GTT. Checking BS with some elevated reading. Will see drug and alcohol counsellor. Robyn Mccartney MD Unplanned 12/05/2020 09/10/19 23 Overview: 12/05/2020atient is here with father the baby. This is a surprise .TKRN with history of ce sarean section, antepartum 12/05/2020 09/10/2022 Overview: 12/05/2020t had 4 previous C section. She desires a repeat C section by Dr. Vallejo. TKRN Nausea and vomiting in 12/05/2020 09/10/2022 Overview: 12/05/2020atient is complaining of nausea and occasional vomiting in . Dietary considerations discussed . Vitamin B6 recommended. Advised patient to call/come in if she is unable to keep any food or fluids down in a 24-hour period.TKRN Group B Streptococcus carrier, antepartum 05/18/2017 06/10/2017 Chest wall pain 08/12/2016 11/24/2016 High-risk supervision 05/04/2013 11/04/2016 Drug dependence complicating 05/04/2013 06/10/2017 Overview: May 04, 2013 referred to steps for evaluation Abnormal finding on screen 02/27/2013 11/04/2016 Overview: Sequential screen risk increased from 1:4300 to 1:180 But screen negative overall since cutoff for positive is 1:100. Attempted to reach patient to review results and offer amniocentesis if desired, unable to reach, Will discuss at next visit if still unable to reach. SM UTI in 11/28/2012 08/26/2016 Overview: 11/28/12 - rx given, needs ABA - KK Previous section 11/24/2012 Overview: 11/24/2012Pt had two previous C sections, one in [place] and the other at [facility]. She desires a repeat C section by Dr. Mercedes Beltre .Patient signed a release of records form to obtain her previous report from [facility]. Tobacco use during , antepartum 11/24/2012 09/10/2022 Overview: 1Pt smokes 1 pack a day of cigarettes, down from 2 packs/day a day. Discussed risks of smoking during . Advised pt to quit. TKRN Exposure to parvovirus 11/24/201208/26 Overview: 11/24/2012Patient states she was exposed to parvovirus, see linked telephone note from November 14. Patient had a negative parvovirus IgG and IgM on November 14. Repeat labs in [address] Vallejo. January 03, 2013 RR- recheck today Dysuria in 11/24/2012 017 Overview: 11/24/2012Patient states she has noted dysuria on and off for several weeks. She denies any dysuria for the past 3 days. Urine culture ordered by Dr. Nails. Pelvic pain in 11/24/201211/2016 Overview: 11/22/2012Patient was seen at [facility] [place] on November 22 for pelvic pain in . An ultrasound was done on that date that revealed an intrauterine with moderate subchorionic hemorrhage inferior to the gestational sac. Second area of an anechoic avascular changes right lateral to the gestational sac may be a blighted twin gestation versus subchorionic hemorrhage. Estimated gestational age at 7 weeks 6 days.Patient states that she has been noticing the pain occurring less often since she was seen at the hospital. She denies any bleeding this . She denies any pelvic pain today. [facility] ultrasound sent to Dr. Beltre's office for review. Abdominal pain 09/20/2012 01/03/2013 Acute cholecystitis with chr onic cholecystitis 09/20/2012 01/03/2013 documented as of this encounter (statuses as of 06/30/2023) [facility] History of Past illness Narrative* Problem Noted Date Diagnosed Date Resolved Date 32 weeks gestation of 08/31/2022 09/10/2022 Mother currently breast-feeding 08/31/2022 09/10/2022 Limited care, antepartum 06/17/2021 09/10/2022 Abnormal glucose in , antepartum 04/02/2021 09/10/2022 Overview: Did not do 3hr GTT. Checking BS with some elevated reading. Will see drug and alcohol counsellor. Robyn Mccartney MD Unplanned 12/05/2020 09/10/19 23 Overview: 12/05/2020atient is here with father the baby. This is a surprise .TKRN with history of ce sarean section, antepartum 12/05/2020 09/10/2022 Overview: 12/05/2020t had 4 previous C section. She desires a repeat C section by Dr. Vallejo. TKRN Nausea and vomiting in 12/05/2020 09/10/2022 Overview: 12/05/2020atient is complaining of nausea and occasional vomiting in . Dietary considerations discussed . Vitamin B6 recommended. Advised patient to call/come in if she is unable to keep any food or fluids down in a 24-hour period.TKRN Group B Streptococcus carrier, antepartum 05/18/2017 06/10/2017 Chest wall pain 08/12/2016 11/24/2016 High-risk supervision 05/04/2013 11/04/2016 Drug dependence complicating 05/04/2013 06/10/2017 Overview: May 04, 2013 referred to steps for evaluation Abnormal finding on screen 02/27/2013 11/04/2016 Overview: Sequential screen risk increased from 1:4300 to 1:180 But screen negative overall since cutoff for positive is 1:100. Attempted to reach patient to review results and offer amniocentesis if desired, unable to reach, Will discuss at next visit if still unable to reach. SM UTI in 11/28/2012 08/26/2016 Overview: 11/28/12 - rx given, needs ABA - KK Previous section 11/24/2012 Overview: 11/24/2012Pt had two previous C sections, one in [place] and the other at [facility]. She desires a repeat C section by Dr. Mercedes Beltre .Patient signed a release of records form to obtain her previous report from [facility]. Tobacco use during , antepartum 11/24/2012 09/10/2022 Overview: 1Pt smokes 1 pack a day of cigarettes, down from 2 packs/day a day. Discussed risks of smoking during . Advised pt to quit. TKRN Exposure to parvovirus 11/24/201208/26 Overview: 11/24/2012Patient states she was exposed to parvovirus, see linked telephone note from November 14. Patient had a negative parvovirus IgG and IgM on November 14. Repeat labs in [address] Vallejo. January 03, 2013 RR- recheck today Dysuria in 11/24/2012 017 Overview: 11/24/2012Patient states she has noted dysuria on and off for several weeks. She denies any dysuria for the past 3 days. Urine culture ordered by Dr. Nails. Pelvic pain in 11/24/201211/2016 Overview: 11/22/2012Patient was seen at [facility] [place] on November 22 for pelvic pain in . An ultrasound was done on that date that revealed an intrauterine with moderate subchorionic hemorrhage inferior to the gestational sac. Second area of an anechoic avascular changes right lateral to the gestational sac may be a blighted twin gestation versus subchorionic hemorrhage. Estimated gestational age at 7 weeks 6 days.Patient states that she has been noticing the pain occurring less often since she was seen at the hospital. She denies any bleeding this . She denies any pelvic pain today. [facility] ultrasound sent to Dr. Beltre's office for review. Abdominal pain 09/20/2012 01/03/2013 Acute cholecystitis with chr onic cholecystitis 09/20/2012 01/03/2013 documented as of this encounter (statuses as of 07/13/2023) [facility] History of Past illness Narrative* Problem Noted Date Diagnosed Date Resolved Date 32 weeks gestation of 08/31/2022 09/10/2022 Mother currently breast-feeding 08/31/2022 09/10/2022 Limited care, antepartum 06/17/2021 09/10/2022 Abnormal glucose in , antepartum 04/02/2021 09/10/2022 Overview: Did not do 3hr GTT. Checking BS with some elevated reading. Will see drug and alcohol counsellor. Robyn Mccartney MD Unplanned 12/05/2020 09/10/19 Overview: 12/05/2020atient is here with father the baby. This is a surprise .TKRN with history of ce sarean section, antepartum 12/05/2020 09/10/2022 Overview: 12/05/2020t had 4 previous C section. She desires a repeat C section by Dr. Vallejo. TKRN Nausea and vomiting in 12/05/2020 09/10/2022 Overview: 12/05/2020atient is complaining of nausea and occasional vomiting in . Dietary considerations discussed . Vitamin B6 recommended. Advised patient to call/come in if she is unable to keep any food or fluids down in a 24-hour period.TKRN Group B Streptococcus carrier, antepartum 05/18/2017 06/10/2017 Chest wall pain 08/12/2016 11/24/2016 High-risk supervision 05/04/2013 11/04/2016 Drug dependence complicating 05/04/2013 06/10/2017 Overview: May 04, 2013 referred to steps for evaluation Abnormal finding on screen 02/27/2013 11/04/2016 Overview: Sequential screen risk increased from 1:4300 to 1:180 But screen negative overall since cutoff for positive is 1:100. Attempted to reach patient to review results and offer amniocentesis if desired, unable to reach, Will discuss at next visit if still unable to reach. SM UTI in 11/28/2012 08/26/2016 Overview: 11/28/12 - rx given, needs ABA - KK Previous section 11/24/2012 Overview: 11/24/2012Pt had two previous C sections, one in [place] and the other at [facility]. She desires a repeat C section by Dr. Mercedes Beltre .Patient signed a release of records form to obtain her previous report from [facility]. Tobacco use during , antepartum 11/24/2012 09/10/2022 Overview: 1Pt smokes 1 pack a day of cigarettes, down from 2 packs/day a day. Discussed risks of smoking during . Advised pt to quit. TKRN Exposure to parvovirus 11/24/201208/26 Overview: 11/24/2012Patient states she was exposed to parvovirus, see linked telephone note from November 14. Patient had a negative parvovirus IgG and IgM on November 14. Repeat labs in [address] Vallejo. January 03, 2013 RR- recheck today Dysuria in 11/24/2012 017 Overview: 11/24/2012Patient states she has noted dysuria on and off for several weeks. She denies any dysuria for the past 3 days. Urine culture ordered by Dr. Nails. Pelvic pain in 11/24/201211/2016 Overview: 11/22/2012Patient was seen at [facility] [place] on November 22 for pelvic pain in . An ultrasound was done on that date that revealed an intrauterine with moderate subchorionic hemorrhage inferior to the gestational sac. Second area of an anechoic avascular changes right lateral to the gestational sac may be a blighted twin gestation versus subchorionic hemorrhage. Estimated gestational age at 7 weeks 6 days.Patient states that she has been noticing the pain occurring less often since she was seen at the hospital. She denies any bleeding this . She denies any pelvic pain today. [facility] ultrasound sent to Dr. Beltre's office for review. Abdominal pain 09/20/2012 01/03/2013 Acute cholecystitis with chr onic cholecystitis 09/20/2012 01/03/2013 documented as of this encounter (statuses as of 07/14/2023) [facility] History of Past illness Narrative* Problem Noted Date Diagnosed Date Resolved Date 32 weeks gestation of 08/31/2022 09/10/2022 Mother currently breast-feeding 08/31/2022 09/10/2022 Limited care, antepartum 06/17/2021 09/10/2022 Abnormal glucose in , antepartum 04/02/2021 09/10/2022 Overview: Did not do 3hr GTT. Checking BS with some elevated reading. Will see drug and alcohol counsellor. Robyn Mccartney MD Unplanned 12/05/2020 09/10/19 Overview: 12/05/2020atient is here with father the baby. This is a surprise .TKRN with history of ce sarean section, antepartum 12/05/2020 09/10/2022 Overview: 12/05/2020t had 4 previous C section. She desires a repeat C section by Dr. Vallejo. TKRN Nausea and vomiting in 12/05/2020 09/10/2022 Overview: 12/05/2020atient is complaining of nausea and occasional vomiting in . Dietary considerations discussed . Vitamin B6 recommended. Advised patient to call/come in if she is unable to keep any food or fluids down in a 24-hour period.TKRN Group B Streptococcus carrier, antepartum 05/18/2017 06/10/2017 Chest wall pain 08/12/2016 11/24/2016 High-risk supervision 05/04/2013 11/04/2016 Drug dependence complicating 05/04/2013 06/10/2017 Overview: May 04, 2013 referred to steps for evaluation Abnormal finding on screen 02/27/2013 11/04/2016 Overview: Sequential screen risk increased from 1:4300 to 1:180 But screen negative overall since cutoff for positive is 1:100. Attempted to reach patient to review results and offer amniocentesis if desired, unable to reach, Will discuss at next visit if still unable to reach. SM UTI in 11/28/2012 08/26/2016 Overview: 11/28/12 - rx given, needs ABA - KK Previous section 11/24/2012 Overview: 11/24/2012Pt had two previous C sections, one in [place] and the other at [facility]. She desires a repeat C section by Dr. Mercedes Beltre .Patient signed a release of records form to obtain her previous report from [facility]. Tobacco use during , antepartum 11/24/2012 09/10/2022 Overview: 1Pt smokes 1 pack a day of cigarettes, down from 2 packs/day a day. Discussed risks of smoking during . Advised pt to quit. TKRN Exposure to parvovirus 11/24/201208/26 Overview: 11/24/2012Patient states she was exposed to parvovirus, see linked telephone note from November 14. Patient had a negative parvovirus IgG and IgM on November 14. Repeat labs in [address] Vallejo. January 03, 2013 RR- recheck today Dysuria in 11/24/2012 017 Overview: 11/24/2012Patient states she has noted dysuria on and off for several weeks. She denies any dysuria for the past 3 days. Urine culture ordered by Dr. Nails. Pelvic pain in 11/24/201211/2016 Overview: 11/22/2012Patient was seen at [facility] [place] on November 22 for pelvic pain in . An ultrasound was done on that date that revealed an intrauterine with moderate subchorionic hemorrhage inferior to the gestational sac. Second area of an anechoic avascular changes right lateral to the gestational sac may be a blighted twin gestation versus subchorionic hemorrhage. Estimated gestational age at 7 weeks 6 days.Patient states that she has been noticing the pain occurring less often since she was seen at the hospital. She denies any bleeding this . She denies any pelvic pain today. [facility] ultrasound sent to Dr. Beltre's office for review. Abdominal pain 09/20/2012 01/03/2013 Acute cholecystitis with chr onic cholecystitis 09/20/2012 01/03/2013 documented as of this encounter (statuses as of 07/28/2023) [facility] History of Past illness Narrative* Problem Noted Date Diagnosed Date Resolved Date 32 weeks gestation of 08/31/2022 09/10/2022 Mother currently breast-feeding 08/31/2022 09/10/2022 Limited care, antepartum 06/17/2021 09/10/2022 Abnormal glucose in , antepartum 04/02/2021 09/10/2022 Overview: Did not do 3hr GTT. Checking BS with some elevated reading. Will see drug and alcohol counsellor. Robyn Mccartney MD Unplanned 12/05/2020 09/10/19 Overview: 12/05/2020atient is here with father the baby. This is a surprise .TKRN with history of ce sarean section, antepartum 12/05/2020 09/10/2022 Overview: 12/05/2020t had 4 previous C section. She desires a repeat C section by Dr. Vallejo. TKRN Nausea and vomiting in 12/05/2020 09/10/2022 Overview: 1Patient is complaining of nausea and occasional vomiting in . Dietary considerations discussed . Vitamin B6 recommended. Advised patient to call/come in if she is unable to keep any food or fluids down in a 24-hour period.TKRN Group B Streptococcus carrier, antepartum 05/18/2017 06/10/2017 Chest wall pain 08/12/2016 11/24/2016 High-risk supervision 05/04/2013 11/04/2016 Drug dependence complicating 05/04/2013 06/10/2017 Overview: May 04, 2013 referred to steps for evaluation Abnormal finding on screen 02/27/2013 11/04/2016 Overview: Sequential screen risk increased from 1:4300 to 1:180 But screen negative overall since cutoff for positive is 1:100. Attempted to reach patient to review results and offer amniocentesis if desired, unable to reach, Will discuss at next visit if still unable to reach. SM UTI in 11/28/2012 08/26/2016 Overview: 11/28/12 - rx given, needs ABA - KK Previous section 11/24/2012 Overview: 11/24/2012Pt had two previous C sections, one in [place] and the other at [facility]. She desires a repeat C section by Dr. Mercedes Beltre .Patient signed a release of records form to obtain her previous report from [facility]. Tobacco use during , antepartum 11/24/2012 09/10/2022 Overview: 1Pt smokes 1 pack a day of cigarettes, down from 2 packs/day a day. Discussed risks of smoking during . Advised pt to quit. TKRN Exposure to parvovirus 11/24/201208/26 Overview: 11/24/2012Patient states she was exposed to parvovirus, see linked telephone note from November 14. Patient had a negative parvovirus IgG and IgM on November 14. Repeat labs in [address] Vallejo. January 03, 2013 RR- recheck today Dysuria in 11/24/2012 017 Overview: 11/24/2012Patient states she has noted dysuria on and off for several weeks. She denies any dysuria for the past 3 days. Urine culture ordered by Dr. Nails. Pelvic pain in 11/24/201211/2016 Overview: 11/22/2012Patient was seen at [facility] [place] on November 22 for pelvic pain in . An ultrasound was done on that date that revealed an intrauterine with moderate subchorionic hemorrhage inferior to the gestational sac. Second area of an anechoic avascular changes right lateral to the gestational sac may be a blighted twin gestation versus subchorionic hemorrhage. Estimated gestational age at 7 weeks 6 days.Patient states that she has been noticing the pain occurring less often since she was seen at the hospital. She denies any bleeding this . She denies any pelvic pain today. [facility] ultrasound sent to Dr. Beltre's office for review. Abdominal pain 09/20/2012 01/03/2013 Acute cholecystitis with chr onic cholecystitis 09/20/2012 01/03/2013 documented as of this encounter (statuses as of 09/29/2023) [facility] History of Present illness Narrative* Azar Smith MD - 08/31/2022 1:55 PM EST Patient presents with: ER F/U HPI: Patient presents today for office visit for ER F/U. Seen in [facility] 08/28/22 due to shortness of breath and fatigue. Kids in house have all been sick for over a month. Still complains of intermittent fatigue and shortness of breath. Chest X-ray no acute abnormality seen Did labs. EKG normal Had negative covid and flu testing. One child also tested for rsv. She is wondering about mono. Everyone is coming and going. Currently no cough. Today she feels good. Was very tired yesterday. Chronically has a mildly elevated white count. Has seen heme onc for her white count before. No current sore throat. No neck soreness or stiffiness. No ear pain. Did have nausea and vomiting and diarrhea. Has a hx of borderline personality disorder and ptsd. She is having a lot of flash backs and nightmares. Has been progressing over the last few months. No new stresses. Still has some anxiety. Was on buspar in the past. Worries a lot about her sisters. No suicidal ideation. Does not do well with ssri and snri's Does not want counseling. Is open to seeing psychiatry teacher MEDICATIONS: Current Outpatient Medications Medication Sig levonorgestrel (MIRENA) 20 mcg/24 hours (7 yrs) 52 mg IUD 1 Each by INTRAUTERINE route as directed. EPINEPHrine (EPIPEN) 0.3 mg/0.3 mL auto-injector Inject 0.3 mL intramuscularly as needed (For allergic reaction). Use as directed No current facility-administered medications for this visit. 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 PONV (postoperative nausea and vomiting) depression Thymoma THYMOLIPOMA Thyroid disease PAST SURGICAL HISTORY Procedure Laterality Date ADENOIDECTOMY PRIMARY <AGE 12 Adenoidectomy w/ tonsils DELIVERY ONLY , low transverse DELIVERY ONLY , low transverse DELIVERY ONLY 06/02/2017 DELIVERY ONLY DELIVERY ONLY 07/15/2021 LTCS COLONOSCOPY GEN ANES Colonoscopy and endoscopy D&C (INCOMPLETE AB), ANY TRIMESTER LAPAROSCOPY SURG CHOLECYSTECTOMY 09/19/2012 LAPS SURG CHOLECYSTECTOMY W/CHOLANGIOGRAPHY `09-19-12 MIRENA 05/13/2022 8 yr SALPINGECTOMY Bilateral 07/15/2021 THORACOTOMY, CYST REMOVAL 2006, 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, 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 TONSILLECTOMY PRIMARY/SECONDARY <AGE 12 Tonsillectomy w/ adenoids FAMILY HISTORY Problem Relation Age of Onset Alcohol/Drug Mother DRUG Psychiatry Mother PTSD,ANXIET/DEPRESSION Heart Mother Cancer Mother Melanoma Suicide / Suicidal Behaviors Sister Cancer Brother Melanoma Cancer Maternal Grandmother Heart Maternal Grandmother Alcohol/Drug Maternal Grandfather ETOH Cancer Maternal Grandfather LUNG ADD/ADHD Daughter Asthma Daughter No Known Problems Son No Known Problems Son Alcohol/Drug Maternal Aunt DRUG Thyroid Maternal Aunt Social History Tobacco Use Smoking status: Every Day Packs/day: 1.00 Years: 15.00 Pack years: 15.00 Types: Cigarettes Smokeless tobacco: Never Vaping Use Vaping Use: Never used Substance Use Topics Alcohol use: No Drug use: Yes Types: Marijuana Comment: Socially- perhpas once monthly Reviewed current medications, allergies, past medical history, surgical history, family history andsocial history today. REVIEW OF SYSTEMS All other reviewed and negative other than HPI. VITALS: BP 130/84 Pulse 92 Temp 36.9 C (98.4 F) Ht 157.5 cm (5' 2 ) Wt 64.9 kg (143 lb) LMP 08/10/2022 (Approximate) SpO2 99% BMI 26.16 kg/m Last 4 Encounter Wt Readings: Date: Wt: 08/26/2022 64.6 kg (142 lb 6.4 oz) 08/17/2022 65.8 kg (145 lb) 06/21/2022 68 kg (150 lb) 05/13/2022 68.5 kg (151 lb) PHYSICAL EXAMINATION: General appearance: Well appearing, alert, in no acute distress, well-hydrated, well nourished. Skin: Skin color, texture, turgor normal, no suspicious rashes or lesions Head: Normocephalic, no masses, lesions, tenderness or abnormalities Eyes: Anicteric sclera. Pupils are equally round and reactive to light. Extraocular movements are intact. Ears: External ears normal, canals clear Nose/Sinuses: Nares normal, septum midline, mucosa normal, no drainage or sinus tenderness Oropharynx: Lips, mucosa, and tongue normal, teeth and gums normal, oropharynx normal Neck: Supple Lungs: Lungs clear to auscultation. No wheezing, rhonchi, rales Heart: RRR without murmur, gallop, or rubs. No ectopy Abdomen: Normal abdominal exam, Abdomen soft, non-tender. Bowel sounds normal. No masses, organomegaly Extremities: No deformities, edema, ASSESSMENT/PLAN: 1. Fatigue, unspecified type - ICD9: 780.79, ICD10: R53.83 (primary diagnosis) - ? Residual viral. Has been tested for strep multiple times as well. Red flags for re-assessment reviewed with patient in detail. - Call if symptoms worsen at all or if not better in one to two weeks - CBC + DIFF - COMP METABOLIC PANEL - TSH BLD - MONOTEST, INFECTIOUS MONO - TSH BLD 2. PTSD (post-traumatic stress disorder) - ICD9: 309.81, ICD10: F43.10 - CONSULT TO [facility] 3. Viral syndrome - ICD9: 079.99, ICD10: B34.9 - Discussed viral etiology and rationale for treatment. - Symptomatic treatment with prn analgesia - Supportive care with fluids and rest Azar Smith MD documented in this encounterNation[facility] Miscellaneous Notes* Telephone Encounter - Angie Falcon LPN - 08/27/2022 8:19 AM EST Patient notified.Angie Falcon LPN * Telephone Encounter - Rajan Smith APRN.GERRI - 08/27/2022 8:07 AM EST Negative for flu and covid please notify thank you documented in this encounterNationwide [facility]12-26-2022 History of Present illness Narrative* Arpita Izaguirre APRN.GERRI - 08/17/2022 5:02 PM EST Subjective Diarrhea Associated symptoms include abdominal pain. Pertinent negatives include no vomiting and no chills. Jessica Liao is a 31 year old female who presents with nausea, weakness, dizziness, lower back pain, some abdominal pain and fatigue. These symptoms started today. Her children were sick with flusymptoms in the past 2 weeks. She has not had any vomiting. She has had some loose bowel movements.She has not taken any medication today for her symptoms. Review of Systems Constitutional: Positive for malaise/fatigue. Negative for chills and fever. HENT: Negative for ear pain and sore throat. Respiratory: Negative. Cardiovascular: Negative. Gastrointestinal: Positive for abdominal pain and nausea. Negative for diarrhea and vomiting. Neurological: Positive for dizziness and weakness. BP 112/74 Pulse 100 Temp 37.2 C (99 F) Resp 16 Wt 65.8 kg (145 lb) LMP 05/09/2022 (Exact Date) SpO2 98% BMI 26.52 kg/m 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 PONV (postoperative nausea and vomiting) depression Thymoma THYMOLIPOMA Thyroid disease PAST SURGICAL HISTORY Procedure Laterality Date ADENOIDECTOMY PRIMARY <AGE 12 Adenoidectomy w/ tonsils DELIVERY ONLY , low transverse DELIVERY ONLY , low transverse DELIVERY ONLY 06/02/2017 DELIVERY ONLY DELIVERY ONLY 07/15/2021 LTCS COLONOSCOPY GEN ANES Colonoscopy and endoscopy D&C (INCOMPLETE AB), ANY TRIMESTER LAPAROSCOPY SURG CHOLECYSTECTOMY 09/19/2012 LAPS SURG CHOLECYSTECTOMY W/CHOLANGIOGRAPHY `09-19-12 MIRENA 05/13/2022 8 yr SALPINGECTOMY Bilateral 07/15/2021 THORACOTOMY, CYST REMOVAL 2006, 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, 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 EPINEPHrine (EPIPEN) 0.3 mg/0.3 mL auto-injector Inject 0.3 mL intramuscularly as needed (For allergic reaction). Use as directed oseltamivir (TAMIFLU) 75 mg capsule Take 1 capsule by mouth twice daily for 5 days. ofloxacin (FLOXIN) 0.3 % otic solution Use 5 Drops in the left ear twice daily. (Patient not taking: Reported on 08/17/2022) busPIRone (BUSPAR) 10 mg tablet Take 1 tablet by mouth three times daily as needed. (Patient not taking: Reported on 08/17/2022) albuterol HFA (VENTOLIN HFA) 90 mcg/actuation inhaler Inhale 2 Puffs as instructed every 4 hours asneeded for wheezing/shortness of breath. (Patient not taking: Reported on 08/17/2022) FAMILY HISTORY Problem Relation Age of Onset Alcohol/Drug Mother DRUG Psychiatry Mother PTSD,ANXIET/DEPRESSION Heart Mother Cancer Mother Melanoma Suicide / Suicidal Behaviors Sister Cancer Brother Melanoma Cancer Maternal Grandmother Heart Maternal Grandmother Alcohol/Drug Maternal Grandfather ETOH Cancer Maternal Grandfather LUNG ADD/ADHD Daughter Asthma Daughter No Known Problems Son No Known Problems Son Alcohol/Drug Maternal Aunt DRUG Thyroid Maternal Aunt Social History Tobacco Use Smoking status: Every Day Packs/day: 1.00 Years: 15.00 Pack years: 15.00 Types: Cigarettes Smokeless tobacco: Never Vaping Use Vaping Use: Never used Substance Use Topics Alcohol use: No Drug use: Yes Types: Marijuana Comment: Socially- perhpas once monthly Objective Physical Exam Vitals and nursing note reviewed. HENT: Right Ear: Tympanic membrane, ear canal and external ear normal. Left Ear: Tympanic membrane, ear canal and external ear normal. Mouth/Throat: Pharynx: Uvula midline. Cardiovascular: Rate and Rhythm: Normal rate and regular rhythm. Heart sounds: Normal heart sounds. Pulmonary: Effort: Pulmonary effort is normal. No respiratory distress. Breath sounds: Normal breath sounds. No wheezing or rales. Abdominal: General: There is no distension. Palpations: There is no mass. Tenderness: There is no abdominal tenderness. There is no right CVA tenderness, left CVA tendernessor guarding. Musculoskeletal: Cervical back: Neck supple. Lymphadenopathy: Cervical: No cervical adenopathy. Skin: General: Skin is warm and dry. Findings: No erythema or rash. Neurological: Mental Status: She is alert. ASSESSMENT/PLAN: 1. Flu-like symptoms - ICD9: 780.99, ICD10: R68.89 - COVID WITH FLUA+B, ROUTINE - OSELTAMIVIR 75 MG CAPSULE- Rx printed. - Follow-up with your PCP in 3-5 days if symptoms have not improved or sooner if symptoms worsen - Discussed red flags and need for immediate medical evaluation if any occur. - Discussed supportive care treatment with fluids, rest and analgesia. - Discussed expected course of illness Arpitanadia Izaguirre APRN.CNP documented in this encounterNationwide Children'[facility]12-26-2022 Instructions* Patient Instructions* Arpita Izaguirre APRN.CNP - 08/17/2022 4:59 PM EST ASSESSMENT/PLAN: 1. Flu-like symptoms - ICD9: 780.99, ICD10: R68.89 - COVID WITH FLUA+B, ROUTINE- Rx printed. - OSELTAMIVIR 75 MG CAPSULE - Follow-up with your PCP in 3-5 days if symptoms have not improved or sooner if symptoms worsen - Discussed red flags and need for immediate medical evaluation if any occur. - Discussed supportive care treatment with fluids, rest and analgesia. - Discussed expected course of illness Arpita Izaguirre APRN.CNP [facility] PATIENT INFO INFLUENZA INTRODUCTION Influenza (commonly called the flu) is a highly contagious illness that can occur in children or adults of any age. It occurs more often in the winter months because people spend more time in close contact with one another. The flu is spread easily from [id number] by coughing, sneezing, or touching surfaces. Every year, complications of the flu require more than 200,000 people in the [place] to be hospitalized. Serious illness is more likely in the very young, older adults, women, and people who have certain health problems such as asthma or other forms of lung disease. There have been several widespread flu outbreaks (called pandemics), which led to the deaths of many people worldwide. These outbreaks occurred when new strains of influenza viruses formed (often from pigs or birds) and humans became infected because they had no immunity to these viruses. FLU SYMPTOMS Symptoms of seasonal flu can vary from person to person, but usually include: Fever (temperature higher than 100 F or 37.8 C) Headache and muscle aches Fatigue Cough and sore throat may also be present People with the flu usually have a fever for two to five days. This is different than fever caused by other upper respiratory viruses, which usually resolve after 24 to 48 hours. Some people have cold-like symptoms (runny nose, sore throat) during the flu while others have fever and muscle aches. Flu symptoms usually improve over two to five days, although the illness may last for a week or more. Weakness and fatigue may persist for several weeks Flu complications -- Complications of influenza occur in some people; pneumonia is the most common complication. Pneumonia is a serious infection of the lungs, and is more likely to occur in people over the age of 65, people who live in local intermodal truck driver care facilities (nursing homes), and those with other illnesses such as diabetes or conditions affecting the heart or lungs. FLU DIAGNOSIS Influenza is usually diagnosed based on symptoms (fever, cough and muscle aches). Lab testing for influenza is performed in certain cases, such as during a new influenza outbreak in a community. FLU TREATMENT When to seek help -- Most people with the flu recover within one to two weeks without treatment. However, serious complications of the flu can occur. Call your doctor or nurse immediately if: You feel short of breath or have trouble breathing You have pain or pressure in your chest or stomach You have signs of being dehydrated, such as dizziness when standing or not passing urine You feel confused You cannot stop vomiting or you cannot drink enough fluids There are several groups of people who are at increased risk for flu complications. These include women, young children (<5 years of age, and especially <2 years of age), people ?65 years of age, and people with certain diseases such as chronic lung disease (such as asthma), heart disease, diabetes, immunosuppressing conditions (such as HIV infection or transplantation), and some other diseases. If you or your child has flu symptoms and is at increased risk of flu complications, you should call your healthcare provider. Treat symptoms -- Treating the symptoms of influenza can help you to feel better, but will not makethe flu go away faster. Rest until the flu is fully resolved, especially if the illness has been severe Fluids -- Drink enough fluids so that you do not become dehydrated. One way to equipment installation professional if you are drinking enough is to look at the color of your urine. Normally, urine should be light yellow to nearlycolorless. If you are drinking enough, you should pass urine every three to five hours. Acetaminophen (such as Tylenol and other brands) can relieve fever, headache, and muscle aches. Aspirin, and medicines that include aspirin (eg, bismuth subsalicylate; PeptoBismol), are not recommended for children under 18 because aspirin can lead to a serious disease called Frank syndrome. Cough medicines are not usually helpful; cough usually resolves without treatment. We do not recommend cough or cold medicine for children under age six years. Antiviral treatment -- Antiviral medicines can be used to treat or prevent influenza. When used as a treatment, the medicine does not eliminate flu symptoms, although it can reduce the severity and duration of symptoms by about one day. Not every person with influenza needs an antiviral medicine; the decision is based upon your risk of developing complications of influenza. Antiviral treatment is most effective for seasonal influenza when it is taken within the first 48 hours of flu symptoms. Side effects -- Zanamivir and oseltamivir can cause mild side effects, including nausea and vomiting; zanamivir, which is inhaled, can cause difficulty breathing in some cases. Most people are able to continue the medicine despite the side effects. Antibiotics -- Antibiotics are NOT useful for treating viral illnesses such as influenza. Antibiotics should only used if there is a bacterial complication of the flu such as bacterial pneumonia, earinfection, or sinusitis. Antibiotics can cause side effects and lead to development of antibiotic resistance. documented in this encounterNationwide [facility]10-30-2022 History of Present illness Narrative* Arpita Izaguirre APRN.GERRI - 06/21/2022 11:43 AM EDT Subjective Ear Pain Associated symptoms include congestion and headaches. Pertinent negatives include no chills, coughing or fever. Jessica Liao is a 31 year old female who presents with left ear pain since last night. States her ear feels swollen and sounds are muffled. She has a headache also. She has had recent nasal congestion. She has taken sudafed and ibuprofen for pain. She rates her pain 7/10. Review of Systems Constitutional: Negative for chills and fever. HENT: Positive for congestion, ear pain and hearing loss. Respiratory: Negative for cough. Cardiovascular: Negative. Neurological: Positive for headaches. 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 PONV (postoperative nausea and vomiting) depression Thymoma THYMOLIPOMA Thyroid disease PAST SURGICAL HISTORY Procedure Laterality Date ADENOIDECTOMY PRIMARY <AGE 12 Adenoidectomy w/ tonsils DELIVERY ONLY , low transverse DELIVERY ONLY , low transverse DELIVERY ONLY 06/02/2017 DELIVERY ONLY DELIVERY ONLY 07/15/2021 [facility] COLONOSCOPY GEN ANES Colonoscopy and endoscopy D&C (INCOMPLETE AB), ANY TRIMESTER LAPAROSCOPY SURG CHOLECYSTECTOMY 09/19/2012 LAPS SURG CHOLECYSTECTOMY W/CHOLANGIOGRAPHY `09-19-12 MIRENA 05/13/2022 8 yr SALPINGECTOMY Bilateral 07/15/2021 THORACOTOMY, CYST REMOVAL 2006, 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, 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 busPIRone (BUSPAR) 10 mg tablet Take 1 tablet by mouth three times daily as needed. albuterol HFA (VENTOLIN HFA) 90 mcg/actuation inhaler Inhale 2 Puffs as instructed every 4 hours asneeded for wheezing/shortness of breath. EPINEPHrine (EPIPEN) 0.3 mg/0.3 mL auto-injector Inject 0.3 mL intramuscularly as needed (For allergic reaction). Use as directed ofloxacin (FLOXIN) 0.3 % otic solution Use 5 Drops in the left ear twice daily. FAMILY HISTORY Problem Relation Age of Onset Alcohol/Drug Mother DRUG Psychiatry Mother PTSD,ANXIET/DEPRESSION Heart Mother Cancer Mother Melanoma Suicide / Suicidal Behaviors Sister Cancer Brother Melanoma Cancer Maternal Grandmother Heart Maternal Grandmother Alcohol/Drug Maternal Grandfather ETOH Cancer Maternal Grandfather LUNG ADD/ADHD Daughter Asthma Daughter No Known Problems Son No Known Problems Son Alcohol/Drug Maternal Aunt DRUG Thyroid Maternal Aunt Social History Tobacco Use Smoking status: Every Day Packs/day: 1.00 Years: 15.00 Pack years: 15.00 Types: Cigarettes Smokeless tobacco: Never Vaping Use Vaping Use: Never used Substance Use Topics Alcohol use: No Drug use: Yes Types: Marijuana Comment: Socially- perhpas once monthly Objective Physical Exam Vitals and nursing note reviewed. Constitutional: Appearance: Normal appearance. HENT: Right Ear: Tympanic membrane, ear canal and external ear normal. Left Ear: External ear normal. There is impacted cerumen. Ears: Comments: Left ear: Cerumen impairs exam of clinically significant portions of the external auditory canal, tympanic membrane or middle ear condition. Cardiovascular: Rate and Rhythm: Normal rate. Pulmonary: Effort: Pulmonary effort is normal. Skin: General: Skin is warm and dry. Findings: Erythema and rash present. Neurological: Mental Status: She is alert. ASSESSMENT/PLAN: 1. Acute otitis externa of left ear, unspecified type - ICD9: 380.10, ICD10: H60.502 - OFLOXACIN 0.3 % EAR DROPS - Follow-up with your PCP in 3-5 days if symptoms have not improved or sooner if symptoms worsen - Discussed red flags and need for immediate medical evaluation if any occur. - Discussed supportive care treatment with fluids, rest and analgesia. - Discussed expected course of illness Arpita Izaguirre APRN.CNP documented in this encounterNationwide Children'[facility]10-30-2022 Nurse Note* Amirah Noel - 06/21/2022 11:36 AM EDT Ambulatory Ear Lavage Pre-treatment: Warm water Treatment: Left ear Equipment and Irrigation solution and Volume used: Single use syringe with single use irrigation tip Return flow appearance: Brown Patient tolerated procedure: yes Post-treatment: Post Irrigation Post-treatment: Ear Canal/Tympanic membrane assessed by DOUGIE Izaguirre documented in this encounterNationwide Children'[facility] Hospital10-30-2022 Instructions* Patient Instructions* Arpita Izaguirre APRN.CNP - 06/21/2022 11:35 AM EDT ASSESSMENT/PLAN: 1. Acute otitis externa of left ear, unspecified type - ICD9: 380.10, ICD10: H60.502 - OFLOXACIN 0.3 % EAR DROPS - Follow-up with your PCP in 3-5 days if symptoms have not improved or sooner if symptoms worsen - Discussed red flags and need for immediate medical evaluation if any occur. - Discussed supportive care treatment with fluids, rest and analgesia. - Discussed expected course of illness Arpita Izaguirre APRN.BOROUGH COORDINATOR Swimmer's Ear What is swimmer's ear? Swimmer's ear (otitis externa) is an infection of the skin of the cartilaginous portion of the ear canal. Because the ear canal is dark, warm and capable of retaining water, it makes a perfect culture chamber for the growth of bacteria or fungus. The disease starts as a local infection in the ear canal (acute otitis externa) and can spread to cartilage and bone of the ear canal. When this occurs it is called malignant external otitis. Facial nerve paralysis can result when the disease progresses this far. What are the symptoms of swimmer's ear? Pain Ear blockage Foul smelling discharge Hearing loss Itching What conditions cause swimmer's ear? Warm temperatures and high humidity are more likely to promote infection in the ear canal. Trappingof water within the ear canal, trauma to the skin of the ear canal (from cotton swab abuse or hearing aid use), loss of the natural protection of ear wax or exposure to contaminated water may also cause otitis externa. How is swimmer's ear treated? Cleaning the ear canal of accumulated debris is the first priority of treatment. Avoiding water exposure and the use of ear drops usually suffices to stop the infection. Occasionally, systemic antibiotics are necessary. What can I do to prevent swimmer's ear? The use of an alcohol lavage (cleansing wash) in the ear canal after swimming or when hearing aids are removed for the day can significantly reduce the occurrence of skin maceration (tendency of the skin to become worn down, weakened or raw) which leads to infection. The alcohol lavage should consist of one quart of isopropyl (rubbing) alcohol and an ounce (shot glass) of acetic acid (white vinegar). When should I see a specialist? If your infection fails to respond to antibiotic drops, or if you have lost your hearing, you may need to have the ear cleaned and treated by a specialist. Sometimes it is necessary to place a small sponge, called a wick, into the ear canal. This facilitates the delivery of medicated ear drops intothe ear when the ear canal is too swollen to permit easy entry. documented in this encounterNationwide Children'[facility] Hospital10-26-2022 History of Present illness Narrative* Annabelle Gonzalez APRN.CNP - 06/17/2022 11:21 AM EDT Special Officer offered: Patient declines. Jessica Liao presents today for IUD check. She had a Mirena placed on 05/13/2022. She has had light bleeding since placement. Had menses 2 weeks early and has continued to have light bleeding. Noincrease in flow when menses was due mid- May. Cramping initially more painful immediately after IUD insertion but has improved to state prior to IUD. States she has discomfort with SI due to feeling IUD strings. REVIEW OF SYSTEMS: No fever or chills. PHYSICAL EXAMINATION: LMP 05/09/2022 ABDOMEN:soft, non-tender, no masses, no hepatosplenomegaly, and no lymphadenopathy EXTERNAL GENITALIA: Normal genitalia and Bartholins, Urethra, Sken'e normal CERVIX: smooth, no lesions. IUD strings visible 2 cm UTERUS: normal size ADNEXA: negative for tenderness or masses IMPRESSION/PLAN: IUD correctly positioned. Follow up for annual exam or sooner if needed. Reassuredregarding light bleeding and reviewed usual pattern of bleeding with Mirena use for HMB. Reassured that IUD strings are 2 cm and curving around the cervix so that strings do not cause partner or herself any pain. Annabelle Gonzalez APRN.GERRI I spent a total of 20 minutes on the date of the service which included preparing to see the patient, [id number] patient care, completing clinical documentation, obtaining and/or reviewing separately obtained history, performing a medically appropriate examination, and counseling and educating the patient/family/caregiver. documented in this encounterNationwide Children'[facility] Hospital09-27-2022 Miscellaneous Notes* Telephone Encounter - Annabelle Gonzalez APRN.CNP - 05/19/2022 1:33 PM EDT Noted. Annabelle Gonzalez APRN.CNP * Telephone Encounter - Mela Vicente RN - 05/19/2022 1:31 PM EDT Patient states she was on her menses at the time her IUD was inserted. She can feel her strings. She will keep the office updated. Mela Vicente RN * Telephone Encounter - Annabelle Gonzalez APRN.CNP - 05/19/2022 1:24 PM EDT Her LMP was 04/22/22 and she usually has 28 day cycles. This may very well likely be her menses. Ibuprofen and heat should help. Can she feel the strings? Keep me updated. Annabelle Gonzalez APRN.CNP * Telephone Encounter - Carmelita Arrington LPN - 05/19/2022 9:38 AM EDT Patient had a mirena inserted on 05/13/2022 and called stating that yesterday she began to have menstrual like cramping rated a 7 out of 100 on pain scale and began to have spotting to light vaginal bleeding today. Reports that she felt fine after insertion until yesterday when the cramping began.Patient denies fever, denies vaginal odor. Patient states that she had taken OTC ibuprofen with minimal relief of the cramping. documented in this encounterNationwide Children'S [facility] Instructions* Patient Instructions* Carmelita Arrington LPN - 05/13/2022 10:29 AM EDT POST IUD INSTRUCTIONS You may have irregular bleeding during the first 3 months of use. You may have mild-severe cramping for the next 48 hours. You may use over the counter medication (Motrin, Tylenol) as needed. Your IUD must be removed or replaced based on the following table: IUD Type Removed or replaced within: Analia 3 years Kyleena 5 years Mirena 8 years Paragard 10 years Call my office for signs/symptoms of infection such as severe cramping, fever, or unusual bleeding. Check for string placement as instructed by your doctor. If you have any additional questions, please contact the office. documented in this encounterNationwide [facility]09-21-[facility]22 History of Present illness Narrative* Annabelle Gonzalez APRN.GERRI - 05/13/2022 10:27 AM EDT Special Officer offered: Patient declines. Jessica presents today for IUD insertion for PAINFUL MENSES. Patient's last menstrual period was 04/22/2022 (exact date). GC/chlamydia: Not done: no risk factors and/or patient declines screening test: BTL Side effects including irregular bleeding were discussed with the patient. The patient understands that it should be removed in 8 years or sooner if the patient desires a . IUD source: office provided IUD lot #: [id number] Exp date: 06/22/2024 UNIVERSAL PROTOCOL / SAFETY CHECKLIST Procedure to be Performed: Mirena IUD insertion Sign In: A Moment of CARE was completed. Personnel directly involved with the procedure wore the appropriate PPE (Personal Protective Equipment). Patient/Surrogate Stated/Verified: PATIENT VERIFIED(optional for EMERGENT procedures): Patient name, Date of , Relevant allergies, and The intended procedure Time Out Communication: Intended patient and procedure match the source documents. Consent documented and matches the intended procedure. Implant(s) inserted: Correct implant(s) confirmed including size and side. and Expiration date(s) reviewed. Sign Out: SIGN OUT (optional for EMERGENT procedures): All instruments, equipment, possible retained foreign bodies accounted for. Post-procedure follow-up management communicated and Plan of Care Visit completed when applicable. Annabelle Gonzalez APRN.BOROUGH COORDINATOR The uterus sounded to 10 cm and the uterus is Anteverted.. After prepping the cervix with betadine and using sterile technique, the Mirena IUD was inserted without difficulty and the string was cut to 3cm from the external os of the cervix. Patient tolerated procedure well. PLAN: Patient was advised to observe for signs and symptoms of infection including but not limited to fever, malodorous vaginal discharge and/or pain. The patient was told to check the string monthlyfor accurate placement. Bleeding expectations were reviewed. Follow up in one month. Annabelle Gonzalez APRN.CNP documented in this encounterNationwide [facility]09-09-2022 Miscellaneous Notes* Telephone Encounter - Annabelle Gonzalez APRN.CNP - 05/01/2022 5:56 PM EDT Patient called per myself to discuss lab results -BVC negative. Discussed with patient using contraception to control symptoms. Patient has used several different contraceptives in the past and has had multiple adverse reactions. Nexplanon caused nausea and bleeding, ParaGard caused pain and migrated, pills she could not remember to take, Depo-Provera caused weight gain, NuvaRing caused constant bleeding. She is a 1 to 1-1/2 pack/day smoker. Discussed using Mirena and she is open to trying an IUD again. Discussed RBA and procedure for insertion. Discussed use of vaginal misoprostol and prescription filed. Order placed for Mirena IUD. Patient will call to schedule appointment when she is on her menses. * Telephone Encounter - Mela Vicente RN - 04/30/2022 10:12 AM EDT Patient viewed her negative cultures on Mychart. States AG told patient that if her results were negative, they would discuss the next step. Patient aware AG is out of the office today. Mela Vicente RN documented in this encounterNationwide Children'[facility]09-07-2022 History of Present illness Narrative* Annabelle Gonzalez APRN.CNP - 04/29/2022 12:01 PM EDT Jessica Liao is a 31 year old female who presents for problem visit ED follow-up pelvic pain. HPI: Last week had severe pain after SI and went to ED the next day. Pain was sharp to entire lowerabdomen. Pain with deep penetration and pain is over entire abdomen with attempt of SI since then. Feels pressure everywhere including rectum. No change in vaginal discharge or odor. 4 courses of antibiotics 2 months ago and subsequent yeast infection treated with fluconazole. Menses have been much heavier since last delivery 10 months ago. Increased cramping that feels likemenstrual cramping with menses and intermittently throughout month 3/week. Continues menses every 28 days. Normal Pap 10/2020. History of tubal ligation. No concern for STD. Pelvic US [facility] UTERUS: The uterus is mildly bulbous in contour and measures 10.7 x 4.3 x 4.9 centimeters. The endometrium is 2.4 millimeters in thickness. ADNEXAE: Normal bilateral appearance with no significant masses. Each ovary is normal in size for apatient of this age. The right ovary is 1.9 x 4.6 x 2.4 centimeters. The left ovary is 2.2 x 2.0 x 1.4 centimeters. CUL-DE-SAC: Normal. No fluid or mass. OTHER: Negative. CT abd/pelvis 04/25/2022 [facility] PELVIC ORGANS: Normal. No visible mass. Pelvic organs appropriate for patient age. BONES: Normal. No bony lesion or fracture. LUNG BASES: Normal. No visible pulmonary or pleural disease. OTHER: Negative. CONCLUSION: 1. The common bile duct is 10 millimeters in diameter. There is mild increase in attenuation distally raising possibility of debris and or calculus. The gallbladder is absent. CONCLUSION: No acute disease. 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 PONV (postoperative nausea and vomiting) depression Thymoma THYMOLIPOMA Thyroid disease 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 TONSILLECTOMY PRIMARY/SECONDARY <AGE 12 Tonsillectomy w/ adenoids FAMILY HISTORY Problem Relation Age of Onset Alcohol/Drug Mother DRUG Psychiatry Mother PTSD,ANXIET/DEPRESSION Heart Mother Cancer Mother Melanoma Suicide / Suicidal Behaviors Sister Cancer Brother Melanoma Cancer Maternal Grandmother Heart Maternal Grandmother Alcohol/Drug Maternal Grandfather ETOH Cancer Maternal Grandfather LUNG ADD/ADHD Daughter Asthma Daughter No Known Problems Son No Known Problems Son Alcohol/Drug Maternal Aunt DRUG Thyroid Maternal Aunt Social History Tobacco Use Smoking status: Every Day Packs/day: 1.00 Years: 15.00 Pack years: 15.00 Types: Cigarettes Smokeless tobacco: Never Vaping Use Vaping Use: Never used Substance Use Topics Alcohol use: No Drug use: Yes Types: Marijuana Comment: Socially- perhpas once monthly Current Outpatient Medications Medication Sig busPIRone (BUSPAR) 10 mg tablet Take 1 tablet by mouth three times daily as needed. fluticasone (FLONASE) 50 mcg/actuation nasal spray Use 2 Sprays in each nostril once daily. Rinse mouth after use. (Patient not taking: Reported on 04/29/2022) cetirizine (ZYRTEC) 10 mg tablet Take 1 tablet by mouth once daily. (Patient not taking: No sig reported) fluticasone (FLONASE) 50 mcg/actuation nasal spray Use 2 Sprays in each nostril once daily. Rinse mouth after use. (Patient not taking: No sig reported) cyclobenzaprine (FLEXERIL) 10 mg tablet Use 1/2 - 1 tablet at bedtime (Patient not taking: No sig reported) albuterol HFA (VENTOLIN HFA) 90 mcg/actuation inhaler Inhale 2 Puffs as instructed every 4 hours asneeded for wheezing/shortness of breath. (Patient not taking: No sig reported) EPINEPHrine (EPIPEN) 0.3 mg/0.3 mL auto-injector Inject 0.3 mL intramuscularly as needed (For allergic reaction). Use as directed No current facility-administered medications for this visit. Allergies As of Date: 04/29/2022 Allergen Noted Reaction CATS 04/03/2013 Anaphylaxis GENTAMICIN 09/20/2012 Other: See Comments GRASS POLLEN 11/10/2013 Hives Fully Assessed 04/29/2022 REVIEW OF SYSTEMS Abdomen: See HPI. No bloating, early satiety, indigestion, or increased flatulence. No nausea, vomiting, diarrhea, or constipation. Bladder: No dysuria, gross hematuria, urinary frequency, urinary urgency, or incontinence. Occasional stress incontinence if vomiting or strong sneeze Allergies and current medication updated:Yes EXAM: BP 118/80 Resp 14 Ht 5' 2 (1.58m) Wt 151 lb (68.5kg) LMP 04/22/2022 BMI 27.61 kg/(m^2). GENERAL: pleasant, female in no apparent distress CHEST: Normal inspiratory effort ABDOMEN: soft, no masses, and Mild tenderness in Generalized PELVIC: external genitalia normal, normal Bartholin's glands, urethra, Cardington's glands, no vulvar lesions, no cervical lesions, physiologic discharge present, normal appearing perineal body and perianal region, 1st degree cystocele. BIMANUAL: uterus normal size, shape and consistency, no adnexal masses, and non-tender NEURO: alert and oriented x3,exam grossly non-focal ASSESSMENT/PLAN: 1. Deep dyspareunia - ICD9: 625.0, ICD10: N94.12 (primary diagnosis) - JORDEN / TRICHOMONAS AMPLIFICATION - BACTERIAL VAGINOSIS AMPLIFICATION 2. Pelvic pain in female - ICD9: 625.9, ICD10: R10.2 - sharp pain and pressure - pelvic US possible adenomyosis - JORDEN / TRICHOMONAS AMPLIFICATION - BACTERIAL VAGINOSIS AMPLIFICATION 3. Cystocele, midline - ICD9: 618.01, ICD10: N81.11 - 1st degree. - Discussed Kegel exercises and given written instruction. Will notify of results. If vaginal cultures negative, may need evaluation by surgeon as adenomyosismy be the cause of the pain and pressure. Follow- up as needed. Annabelle Gonzalez APRN.CNP Medical Decision Making: Problems: Moderate: New problem with uncertain prognosis Data: Unique test(s) ordered: 2 Medical Decision Making Level: 3 - Low documented in this encounterNationwide Children'S Hospital09-04-2022 Miscellaneous Notes* Telephone Encounter - Marilou Giraldo RN - 04/26/2022 6:33 PM EDT Reason for call: Stool is white in color. Was seen Wednesday evening in the ED for abdominal pain witha diagnosis of possible ruptured ovarian cyst Outcome: 24 hour recommendation, Patient will seek evaluation at the [facility] walk in clinic tomorrow. Reason for Disposition [1] Stool is light dutta or whitish AND [2] unexplained Answer Assessment - Initial Assessment Questions 1. COLOR: white to light adame x3 - 4 today 2. ONSET: Today, Thursday 04/26 3. CAUSE: unknown 4. OTHER SYMPTOMS: Abdominal pain - constant and worsening with movement. Nausea and tired. Denies fever Protocols used: Stools - Unusual [id number] documented in this encounterNationwide Children'S Hospital08-07-2022 History of Present illness Narrative* Clare Araiza PA-C - 03/29/2022 1:44 PM EDT This note was created using [employer]. Subjective Jessica Liao is a 31 year old female. HPI Patient presents with right ear pain over the past 3 to 4 weeks. She has been treated with Augmentin and then Omnicef and has 1 day left of the Omnicef. She states it feels like it gets better on theantibiotic but the past couple days has worsened. No fluid coming out of the ear. She did have somecold symptoms preceding this. She had been seen in the ER for vertigo as well. No fever recently. It hurts to touch the ear and in front of the ear. Review of Systems Constitutional: Negative. HENT: Positive for ear pain. Negative for congestion, ear discharge, facial swelling, postnasal drip, rhinorrhea, sinus pain, sneezing and sore throat. Respiratory: Negative. Cardiovascular: Negative. Gastrointestinal: Negative. PAST MEDICAL HISTORY Diagnosis Date Abnormal Pap smear of cervix AGE 15 +HPV Adjustment disorder Anemia ANEMIA WITH Asthma CHILDHOOD ASTHMA Breast disorder NERVE DAMAGE IN LEFT BREAST DUE TO PREVIOUS SURGERY Chlamydia 2015 FRACTURE AGE 9 FEMUR H/O sinus tachycardia 2010 History of drug abuse in remission ([facility]) opiates PONV (postoperative nausea and vomiting) depression Thymoma THYMOLIPOMA Thyroid disease Current Outpatient Medications Medication Sig Dispense Refill cefdinir (OMNICEF) 300 mg capsule Take 1 capsule by mouth twice daily for 7 days. 14 capsule 0 busPIRone (BUSPAR) 10 mg tablet Take 1 tablet by mouth three times daily as needed. 90 tablet 3 EPINEPHrine (EPIPEN) 0.3 mg/0.3 mL auto-injector Inject 0.3 mL intramuscularly as needed (For allergic reaction). Use as directed 2 Each 1 fluticasone (FLONASE) 50 mcg/actuation nasal spray Use 2 Sprays in each nostril once daily. Rinse mouth after use. 1 Each 0 cetirizine (ZYRTEC) 10 mg tablet Take 1 tablet by mouth once daily for 14 days. 14 tablet 0 ofloxacin (FLOXIN) 0.3 % otic solution Use 5 Drops in the right ear twice daily for 7 days. 5 mL 0 cetirizine (ZYRTEC) 10 mg tablet Take 1 tablet by mouth once daily. (Patient not taking: Reported on 03/18/2022 ) 30 tablet 0 fluticasone (FLONASE) 50 mcg/actuation nasal spray Use 2 Sprays in each nostril once daily. Rinse mouth after use. (Patient not taking: Reported on 03/18/2022 ) 9.9 mL 0 cyclobenzaprine (FLEXERIL) 10 mg tablet Use 1/2 - 1 tablet at bedtime (Patient not taking: Reportedon 02/21/2022 ) 7 tablet 0 albuterol HFA (VENTOLIN HFA) 90 mcg/actuation inhaler Inhale 2 Puffs as instructed every 4 hours asneeded for wheezing/shortness of breath. (Patient not taking: Reported on 03/18/2022 ) 18 g 0 No current facility-administered medications for this visit. 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 TONSILLECTOMY PRIMARY/SECONDARY <AGE 12 Tonsillectomy w/ adenoids FAMILY HISTORY Problem Relation Age of Onset Alcohol/Drug Mother DRUG Psychiatry Mother PTSD,ANXIET/DEPRESSION Heart Mother Cancer Mother Melanoma Suicide / Suicidal Behaviors Sister Cancer Brother Melanoma Cancer Maternal Grandmother Heart Maternal Grandmother Alcohol/Drug Maternal Grandfather ETOH Cancer Maternal Grandfather LUNG ADD/ADHD Daughter Asthma Daughter No Known Problems Son No Known Problems Son Alcohol/Drug Maternal Aunt DRUG Thyroid Maternal Aunt Social History Tobacco Use Smoking status: Every Day Packs/day: 1.00 Years: 15.00 Pack years: 15.00 Types: Cigarettes Smokeless tobacco: Never Vaping Use Vaping Use: Never used Substance Use Topics Alcohol use: No Drug use: Yes Frequency: 3.0 times per week Types: Marijuana Comment: denies use since 07/2020 Objective BP 128/82 Pulse 103 Temp 36.9 C (98.5 F) (Tympanic) Resp 18 Wt 71.5 kg (157 lb 9.6 oz) LMP 01/01/2022 (Exact Date) SpO2 99% BMI 28.83 kg/m Physical Exam Vitals reviewed. Constitutional: Appearance: Normal appearance. HENT: Head: Normocephalic and atraumatic. Right Ear: External ear normal. Left Ear: Tympanic membrane, ear canal and external ear normal. Ears: Comments: Patient does have a right middle ear effusion, does not appear to be suppurative. TM is intact. External auditory canal is erythematous and mildly swollen with pain on pulling on the tragusof the right ear. No mastoid tenderness or bogginess on palpation. Left ear exam unremarkable. Nose: Nose normal. Mouth/Throat: Mouth: Mucous membranes are moist. Pharynx: Oropharynx is clear. Cardiovascular: Rate and Rhythm: Normal rate and regular rhythm. Heart sounds: Normal heart sounds. Pulmonary: Effort: Pulmonary effort is normal. Breath sounds: Normal breath sounds. Musculoskeletal: Cervical back: Neck supple. Lymphadenopathy: Cervical: No cervical adenopathy. Skin: General: Skin is warm and dry. Neurological: Mental Status: She is alert. Assessment and Plan ASSESSMENT/PLAN: 1. Middle ear effusion, right - ICD9: 381.4, ICD10: H65.91 (primary diagnosis) -Flonase and Zyrtec prescribed. Would recommend a follow-up with ear nose and throat. [place] to stay in [place], given referral to [facility]. - CONSULT TO ENT 2. Acute otitis externa of right ear, unspecified type - ICD9: 380.10, ICD10: H60.501 Ofloxacin drops sent. Clare Araiza PA-C documented in this encounterNationwide Children'S Hospital08-01-2022 History of Present illness Narrative* Dinh Mac MD - 03/23/2022 2:53 PM EDT Patient presents with: Ear Pain: right, seen last week on augmentin HPI: Feeling sick for 8 days. She was treated for right otitis media last week with augmentin (COVID negative). Her ear pain improved after a couple days but has been worsening again. She also has pain inthe right rhomboid area when she turns her head. Positive symptoms: Earache, right upper back pain, Post nasal drainage, Negative symptoms: Fever, numbness, allodynia, vaginal discharge/irritation OTC: Ibuprofen, augmentin PAST MEDICAL HISTORY Diagnosis Date Abnormal Pap smear of cervix AGE 15 +HPV Adjustment disorder Anemia ANEMIA WITH Asthma CHILDHOOD ASTHMA Breast disorder NERVE DAMAGE IN LEFT BREAST DUE TO PREVIOUS SURGERY Chlamydia 2015 FRACTURE AGE 9 FEMUR H/O sinus tachycardia 2011 History of drug abuse in remission (HCC) opiates PONV (postoperative nausea and vomiting) depression Thymoma THYMOLIPOMA Thyroid disease MEDICATIONS: Current Outpatient Medications Medication Sig busPIRone (BUSPAR) 10 mg tablet Take 1 tablet by mouth three times daily as needed. EPINEPHrine (EPIPEN) 0.3 mg/0.3 mL auto-injector Inject 0.3 mL intramuscularly as needed (For allergic reaction). Use as directed cefdinir (OMNICEF) 300 mg capsule Take 1 capsule by mouth twice daily for 7 days. fluconazole (DIFLUCAN) 150 mg tablet Take 1 tablet by mouth one time only for 1 dose. Repeat in 3 days as needed. cetirizine (ZYRTEC) 10 mg tablet Take 1 tablet by mouth once daily. (Patient not taking: Reported on 03/18/2022 ) fluticasone (FLONASE) 50 mcg/actuation nasal spray Use 2 Sprays in each nostril once daily. Rinse mouth after use. (Patient not taking: Reported on 03/18/2022 ) cyclobenzaprine (FLEXERIL) 10 mg tablet Use 1/2 - 1 tablet at bedtime (Patient not taking: Reportedon 02/21/2022 ) albuterol HFA (VENTOLIN HFA) 90 mcg/actuation inhaler Inhale 2 Puffs as instructed every 4 hours asneeded for wheezing/shortness of breath. (Patient not taking: Reported on 03/18/2022 ) No current facility-administered medications for this visit. ALLERGIES: ALLERGIES Allergen Reactions Cats Anaphylaxis Gentamicin Other: See Comments hearing loss Grass Pollen Hives VITALS: BP 110/68 Pulse 74 Temp 36.9 C (98.4 F) Resp 16 Wt 71.7 kg (158 lb) LMP 01/01/2022 (ExactDate) SpO2 98% BMI 28.90 kg/m PHYSICAL EXAM: GEN: Pleasant, in no acute distress. HEENT: PERRL, EOMI, conjunctiva clear Ears: canals clear. LTM without erythema, bulge, or effusion. RTM with erythema and purulent effusion Sinuses: non-tender frontal sinus, non-tender maxillary sinuses Throat: moist mucous membranes, no erythema, no exudate Neck: supple, no thyromegaly, no lymphadenopathy. Tender right paraspinal medial to the scapula HEART: regular rate and rhythm, no murmurs LUNGS: clear to auscultation, no wheezes or crackles, no increased WOB ASSESSMENT/PLAN: 1. Otitis media, recurrent, right - ICD9: 382.9, ICD10: H66.91 (primary diagnosis) Change from augmentin to - CEFDINIR 300 MG CAPSULE 2. Vaginal discharge - ICD9: 623.5, ICD10: N89.8 - FLUCONAZOLE 150 MG TABLET - 1 dose now, 1 upon completion of omnicef. Dinh Mac MD documented in this encounterNationwide Children'S Hospital07-27-2022 Instructions* Patient Instructions* Adrian Miller APRN.BOROUGH COORDINATOR - 03/18/2022 7:00 PM EDT How to Manage Common Symptoms Associated with COVID for Adults Fever- Fever is a temperature over 100.4 F and can occur when the body is fighting an infection. Tohelp treat a fever: Drink plenty of fluids and stay well hydrated. Eat small amounts of easy to digest food. Rest. Your body needs rest to recover, but getting up and moving around the house frequently is a good idea. You should try to continue doing your normal daily activities (bathing, toileting, grooming, cooking), though you will probably feel tired, and need to rest often. Avoid any heavy activity or exercise, as this will increase your body temperature. Dress in light clothing and stay covered in a light sheet. Keep the room temperature cool. Take a slightly warm (not cold or cool) bath, or apply damp washcloths to the forehead and wrists. Cough- Cough is a common symptom associated with COVID and can be bothersome. To help treat a cough: Stay well hydrated. Try warm water or tea with lemon and/or honey to help soothe the cough. Use a humidifier to add moisture to the air. Try a product with menthol, like a cough drop or a rub for your chest such as Vicks, which can helpreduce cough. Try cough drops. Avoid smoking and other strong odors or perfumes. Try breathing exercises to keep your lungs open and clear. Take a big deep breath through your noseand hold for 5 seconds before slowly releasing. Repeat frequently, while you are awake. Congestion- Runny nose or nasal congestion can occur with COVID. Treatment can help relieve symptoms: Try OTC nasal saline spray, or nasal saline rinse to relieve mucus congestion. Nasal strips can help keep nasal passages open, to increase airflow. Elevating your head with an extra pillow in bed can help reduce congestion. Using a humidifier can increase moisture in the air, and make breathing easier. Sore Throat- Another common symptom with COVID, can be managed at home by: Stay well hydrated. Gargle with salt water mix teaspoon salt with 1 cup of warm water and gargle. This helps to loosen mucus in the back of the throat and may reduce discomfort. Try ice chips, popsicles or lozenges to soothe the throat. Nausea/Vomiting/Diarrhea- These are common symptoms, and staying hydrated is most important. If you are nauseous or vomiting, start with small sips of water every 10-15 minutes and increase astolerated. You can try sucking an ice cube too. If tolerating, you can try pedialyte or Gatorade, or flat sprite or jessica-kamala. Start slowly and increase as you are able to. Instead of meals, try smaller, more frequent snacks. Try eating bland foods like crackers, toast, rice, and applesauce. Avoid spicy, greasy or fried foods and dairy containing foods. Even if you aren't feeling hungry due to lack of smell or taste, it is important to try to take in some food when you are able. After drinking and eating, rest in an upright position for up to two hours as needed to help decrease nauseous feelings. Try closing your eyes, avoid moving and watching TV. Avoid strong odors that can make you feel more nauseated. When to seek emergency medical attention Look for emergency warning signs for COVID-19. If having any of these symptoms, seek emergency medical care immediately: Trouble breathing Persistent pain or pressure in the chest New confusion Inability to wake or stay awake Bluish lips or face *This list is not all possible symptoms. Please call your medical provider for any other symptoms that are severe or concerning to you. documented in this encounterNationwide [facility]07-27-[facility]22 History of Present illness Narrative* Adrian Miller APRN.CNP - 03/18/2022 6:53 PM EDT Subjective HPI Nontoxic-appearing female presents urgent care chief plaint right ear pain. Duration of symptoms 3 days. Associated symptoms sinus pressure right ear pain. Patient states feels sinus pressure behind her eyes. States no known sick contacts. Has not used any OTC medication use. Most bothersome symptom today is right ear pain. Denies any ear trauma otorrhea hearing difficulties. Denies any fevers productive cough chest pain shortness of breath pleuritic pain hemoptysis nausea vomiting abdominal pain change in bowel or bladder habits. Past medical history prescription medication use allergies reviewed. .Patient presents with: Ear Pain: right ear and neck pain, eye pressure x 3 days 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 PONV (postoperative nausea and vomiting) depression Thymoma THYMOLIPOMA Thyroid disease 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 EPINEPHrine (EPIPEN) 0.3 mg/0.3 mL auto-injector Inject 0.3 mL intramuscularly as needed (For allergic reaction). Use as directed cetirizine (ZYRTEC) 10 mg tablet Take 1 tablet by mouth once daily. fluticasone (FLONASE) 50 mcg/actuation nasal spray Use 2 Sprays in each nostril once daily. Rinse mouth after use. cyclobenzaprine (FLEXERIL) 10 mg tablet Use 1/2 - 1 tablet at bedtime albuterol HFA (VENTOLIN HFA) 90 mcg/actuation inhaler Inhale 2 Puffs as instructed every 4 hours asneeded for wheezing/shortness of breath. FAMILY HISTORY Problem Relation Age of Onset Alcohol/Drug Mother DRUG Psychiatry Mother PTSD,ANXIET/DEPRESSION Heart Mother Cancer Mother Melanoma Suicide / Suicidal Behaviors Sister Cancer Brother Melanoma Cancer Maternal Grandmother Heart Maternal Grandmother Alcohol/Drug Maternal Grandfather ETOH Cancer Maternal Grandfather LUNG ADD/ADHD Daughter Asthma Daughter No Known Problems Son No Known Problems Son Alcohol/Drug Maternal Aunt DRUG Thyroid Maternal Aunt Social History Tobacco Use Smoking status: Current Every Day Smoker Packs/day: 1.00 Years: 15.00 Pack years: 15.00 Smokeless tobacco: Never Used Vaping Use Vaping Use: Never used Substance Use Topics Alcohol use: No Drug use: Yes Frequency: 3.0 times per week Types: Marijuana Comment: denies use since 07/2020 BP 122/80 Pulse 114 Temp 37.7 C (99.8 F) Resp 16 Wt 69.4 kg (153 lb) LMP 01/01/2022 (Exact Date) SpO2 98% BMI 27.98 kg/m Hr 88 Review of Systems Constitutional: Negative for chills, fever and malaise/fatigue. HENT: Positive for congestion and ear pain. Negative for ear discharge, sinus pain and sore throat. Eyes: Negative for blurred vision, pain, discharge and redness. Respiratory: Negative for cough, hemoptysis, sputum production, shortness of breath, wheezing and stridor. Cardiovascular: Negative for chest pain. Gastrointestinal: Negative for abdominal pain, diarrhea, nausea and vomiting. Musculoskeletal: Negative for myalgias. Skin: Negative for itching and rash. Neurological: Negative for dizziness and headaches. Objective Physical Exam Vitals and nursing note reviewed. Constitutional: General: She is not in acute distress. Appearance: She is not diaphoretic. HENT: Head: Normocephalic and atraumatic. Jaw: No trismus, tenderness, swelling or pain on movement. Right Ear: Hearing, ear canal and external ear normal. No decreased hearing noted. No drainage, swelling or tenderness. No mastoid tenderness. Tympanic membrane is erythematous and bulging. Tympanic membrane is not perforated. Left Ear: Hearing, tympanic membrane, ear canal and external ear normal. No decreased hearing noted. No drainage, swelling or tenderness. No mastoid tenderness. Tympanic membrane is not perforated, erythematous or bulging. Ears: Comments: No external otorrhea edema erythema noted. Nose: Congestion present. Mouth/Throat: Mouth: Mucous membranes are moist. Pharynx: Oropharynx is clear. Uvula midline. No oropharyngeal exudate, posterior oropharyngeal erythema or uvula swelling. Tonsils: No tonsillar abscesses. Eyes: General: Right eye: No discharge. Left eye: No discharge. Conjunctiva/sclera: Conjunctivae normal. Pupils: Pupils are equal, round, and reactive to light. Cardiovascular: Rate and Rhythm: Normal rate and regular rhythm. Heart sounds: Normal heart sounds. Pulmonary: Effort: Pulmonary effort is normal. No tachypnea, accessory muscle usage or respiratory distress. Breath sounds: Normal breath sounds. No stridor. No wheezing or rales. Chest: Chest wall: No tenderness. Abdominal: Palpations: Abdomen is soft. Tenderness: There is no abdominal tenderness. Musculoskeletal: General: No tenderness. Normal range of motion. Cervical back: Normal range of motion and neck supple. No rigidity or tenderness. Lymphadenopathy: Head: Right side of head: No submental, submandibular, tonsillar, preauricular, posterior auricular or occipital adenopathy. Left side of head: No submental, submandibular, tonsillar, preauricular, posterior auricular or occipital adenopathy. Cervical: No cervical adenopathy. Right cervical: No superficial or posterior cervical adenopathy. Left cervical: No superficial or posterior cervical adenopathy. Skin: General: Skin is warm and dry. Findings: No rash. Neurological: Mental Status: She is alert and oriented to person, place, and time. ASSESSMENT/PLAN: 1. Suspected COVID-19 virus infection - ICD9: V01.79, ICD10: Z20.822 (primary diagnosis) - COVID WITH FLUA+B, ROUTINE 2. Acute otitis media, right - ICD9: 382.9, ICD10: H66.91 Patient diagnosed with otitis media of right ear. Patient placed on Augmentin. Supportive therapiesdiscussed. COVID-19 test ordered. Red flags for prompt reevaluation discussed. Patient was educatedon supportive therapies. Patient will follow up with primary care provider as needed. Patient was instructed to immediately proceed to emergency room for any new, worsening, or symptoms lasting longer than anticipated. The patient's clinical presentation is otherwise unremarkable at this time. Based on exam and clinical finding, the patient is stable for discharge. Plan of care was discussed withpatient. Patient verbalizes understanding and agrees to plan of care. This note was generated usingSape software. It may contain errors in wording, punctuation, or spelling. Adrian Miller APRN.GERRI documented in this encounterNationwide Children[facility]07-09-2022 Miscellaneous Notes* Telephone Encounter - Amirah Noel - 02/28/2022 8:40 AM EDT Patient given results and verbalized understanding of instructions given. Amirah Noel * Telephone Encounter - bC Kumari APRN.CNP - 02/28/2022 8:14 AM EDT Please notify that covid/flu testing negative. Continue with plan of care as discussed during visit. documented in this encounterNationwide Children'[facility]07-08-2022 History of Present illness Narrative* Adrian Miller APRN.CNP - 02/27/2022 6:48 PM EDT Subjective HPI Nontoxic-appearing female presents urgent care chief complaint left ear pain fever body aches chills dizziness. States dizziness has been present for 1 week. Has been seen at ED twice for this complaint. Diagnosed with otitis externa and BPPV. Normal CT. States fever is new onset as well as body aches and chills. States daughter was recently diagnosed with COVID-19 2 days ago. Denies history of COVID-19 in the last 90 days. Denies any OTC medications for today's chief complaint. No trauma. Denies any high fevers productive cough chest pain shortness of breath pleuritic pain hemoptysis change in bowel or bladder habits. Past medical history prescription medication use allergies reviewed. Denies chance of . .Patient presents with: Ear Pain: L ear pain, nausea, vomiting, L side neck pain, dizziness x1 week 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 PONV (postoperative nausea and vomiting) depression Thymoma THYMOLIPOMA Thyroid disease 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 cetirizine (ZYRTEC) 10 mg tablet Take 1 tablet by mouth once daily. fluticasone (FLONASE) 50 mcg/actuation nasal spray Use 2 Sprays in each nostril once daily. Rinse mouth after use. cyclobenzaprine (FLEXERIL) 10 mg tablet Use 1/2 - 1 tablet at bedtime busPIRone (BUSPAR) 10 mg tablet Take 1 tablet by mouth three times daily as needed. albuterol HFA (VENTOLIN HFA) 90 mcg/actuation inhaler Inhale 2 Puffs as instructed every 4 hours asneeded for wheezing/shortness of breath. EPINEPHrine (EPIPEN) 0.3 mg/0.3 mL auto-injector Inject 0.3 mL intramuscularly as needed (For allergic reaction). Use as directed FAMILY HISTORY Problem Relation Age of Onset Alcohol/Drug Mother DRUG Psychiatry Mother PTSD,ANXIET/DEPRESSION Heart Mother Cancer Mother Melanoma Suicide / Suicidal Behaviors Sister Cancer Brother Melanoma Cancer Maternal Grandmother Heart Maternal Grandmother Alcohol/Drug Maternal Grandfather ETOH Cancer Maternal Grandfather LUNG ADD/ADHD Daughter Asthma Daughter No Known Problems Son No Known Problems Son Alcohol/Drug Maternal Aunt DRUG Thyroid Maternal Aunt Social History Tobacco Use Smoking status: Current Every Day Smoker Packs/day: 1.00 Years: 15.00 Pack years: 15.00 Smokeless tobacco: Never Used Vaping Use Vaping Use: Never used Substance Use Topics Alcohol use: No Drug use: Yes Frequency: 3.0 times per week Types: Marijuana Comment: denies use since 07/2020 BP 120/84 Pulse 91 Temp 37.6 C (99.7 F) Resp 20 Wt 69.6 kg (153 lb 6.4 oz) LMP 01/01/2022(Exact Date) SpO2 99% BMI 28.06 kg/m Review of Systems Constitutional: Positive for chills, fever and malaise/fatigue. HENT: Positive for congestion and ear pain. Negative for ear discharge, sinus pain and sore throat. Eyes: Negative for blurred vision, pain, discharge and redness. Respiratory: Positive for cough. Negative for hemoptysis, sputum production, shortness of breath, wheezing and stridor. Cardiovascular: Negative for chest pain. Gastrointestinal: Negative for abdominal pain, diarrhea, nausea and vomiting. Musculoskeletal: Positive for myalgias. Skin: Negative for itching and rash. Neurological: Positive for dizziness and headaches. Objective Physical Exam Constitutional: General: She is not in acute distress. Appearance: She is not diaphoretic. HENT: Head: Normocephalic. Right Ear: Hearing, tympanic membrane, ear canal and external ear normal. No mastoid tenderness. Left Ear: Hearing, tympanic membrane, ear canal and external ear normal. No mastoid tenderness. Eyes: Conjunctiva/sclera: Conjunctivae normal. Pupils: Pupils are equal, round, and reactive to light. Cardiovascular: Rate and Rhythm: Normal rate and regular rhythm. Heart sounds: Normal heart sounds. Pulmonary: Effort: Pulmonary effort is normal. No tachypnea, accessory muscle usage or respiratory distress. Breath sounds: Normal breath sounds. No stridor. No wheezing, rhonchi or rales. Abdominal: Palpations: Abdomen is soft. Tenderness: There is no abdominal tenderness. Musculoskeletal: Cervical back: Normal range of motion and neck supple. No rigidity or tenderness. Lymphadenopathy: Cervical: Cervical adenopathy present. Skin: General: Skin is warm and dry. Neurological: General: No focal deficit present. Mental Status: She is alert and oriented to person, place, and time. Mental status is at baseline. ASSESSMENT/PLAN: 1. Viral illness - ICD9: 079.99, ICD10: B34.9 - COVID WITH FLUA+B, ROUTINE We will test for COVID-19 due to recent exposure. No evidence of bacterial infection noted on exam.Will try meclizine for dizziness. If symptoms are not improving or worsening will be seen ED for further evaluation care. Patient was educated on supportive therapies. Patient will follow up with primary care provider as needed. Patient was instructed to immediately proceed to emergency room for any new, worsening, or symptoms lasting longer than anticipated. The patient's clinical presentation is otherwise unremarkable at this time. Based on exam and clinical finding, the patient is stable for discharge. Plan of care was discussed with patient. Patient verbalizes understanding and agrees to plan of care. This note was generated using Sape software. It may contain errors in wording, punctuation, or spelling. Adrian Miller APRN.CNP documented in this encounterNationwide Children'[facility]07-03-2022 Miscellaneous Notes* Telephone Encounter - Alona Castorena LPN - 02/22/2022 8:13 AM EDT mychart message sent * Telephone Encounter - Rajan Smith APRN.CNP - 02/22/2022 8:07 AM EDT Please notify negative for flu and covid thank you documented in this encounterNationwide [facility]07-02-2022 Miscellaneous Notes* Telephone Encounter - Eloisa Sam RN - 02/21/2022 12:29 PM EDT Reason for call: Patient states she was seen in the UC today and was treated with Toradol and givenand antibiotic drop to place in her ear. She has used the ear drops but states she now has pain in her neck and jaw and is worse than when she was evaluated in the UC. She confirms that the Toradol did not help with the pain. Outcome: Patient to go to the [place] [facility] now to be evaluated. Reason for Disposition Patient sounds very sick or weak to the triager Protocols used: [id number] documented in this encounterNationwide Children'S Hospital07-02-2022 Instructions* Patient Instructions* Arpita Izaguirre APRN.BOROUGH COORDINATOR - 02/21/2022 11:13 AM EDT ASSESSMENT/PLAN: 1. Headache, unspecified headache type - ICD9: 784.0, ICD10: R51.9 (primary diagnosis) - KETOROLAC 60 MG/2 ML INTRAMUSCULAR SOLUTION- given in office 2. Acute swimmer's ear of left side - ICD9: 380.12, ICD10: H60.332 - OFLOXACIN 0.3 % EAR DROPS - Follow-up with your PCP in 3-5 days if symptoms have not improved or sooner if symptoms worsen - Discussed red flags and need for immediate medical evaluation if any occur. - Discussed supportive care treatment with fluids, rest and analgesia. - Discussed expected course of illness Arpita Izaguirre APRN.BOROUGH COORDINATOR Swimmer's Ear What is swimmer's ear? Swimmer's ear (otitis externa) is an infection of the skin of the cartilaginous portion of the ear canal. Because the ear canal is dark, warm and capable of retaining water, it makes a perfect culture chamber for the growth of bacteria or fungus. The disease starts as a local infection in the ear canal (acute otitis externa) and can spread to cartilage and bone of the ear canal. When this occurs it is called malignant external otitis. Facial nerve paralysis can result when the disease progresses this far. What are the symptoms of swimmer's ear? Pain Ear blockage Foul smelling discharge Hearing loss Itching What conditions cause swimmer's ear? Warm temperatures and high humidity are more likely to promote infection in the ear canal. Trappingof water within the ear canal, trauma to the skin of the ear canal (from cotton swab abuse or hearing aid use), loss of the natural protection of ear wax or exposure to contaminated water may also cause otitis externa. How is swimmer's ear treated? Cleaning the ear canal of accumulated debris is the first priority of treatment. Avoiding water exposure and the use of ear drops usually suffices to stop the infection. Occasionally, systemic antibiotics are necessary. What can I do to prevent swimmer's ear? The use of an alcohol lavage (cleansing wash) in the ear canal after swimming or when hearing aids are removed for the day can significantly reduce the occurrence of skin maceration (tendency of the skin to become worn down, weakened or raw) which leads to infection. The alcohol lavage should consist of one quart of isopropyl (rubbing) alcohol and an ounce (shot glass) of acetic acid (white vinegar). When should I see a specialist? If your infection fails to respond to antibiotic drops, or if you have lost your hearing, you may need to have the ear cleaned and treated by a specialist. Sometimes it is necessary to place a small sponge, called a wick, into the ear canal. This facilitates the delivery of medicated ear drops intothe ear when the ear canal is too swollen to permit easy entry. HEADACHE GENERAL INFORMATION: Almost everyone has a headache occasionally. Most headaches are caused by tension, eye strain, or emotional upset. Headaches can also occur with many medical illnesses. They may be a side effect of some medications. A headache that occurs without other symptoms and only lasts a few hours probably isn't a cause for concern. INSTRUCTIONS: 1. You may use [id number] pain medication such as acetaminophen, ibuprofen, or aspirin unlessyour doctor recommends otherwise. 2. Try some of the following measures to relieve your headache: Stretch and massage the muscles in your shoulders, neck, jaw, and scalp. Take a hot bath. Rest in a quiet, darkened room. Place a warm or cold wet cloth (whichever feels better to you) over the aching area. 3. Don't skip meals or delay meals for very long. Drink plenty of fluids. 4. Avoid alcoholic beverages and cigarette smoking. These often make a headache worse. 5. Get plenty of rest. A good night's sleep often is the best way to relieve a headache. CONTACT YOUR DOCTOR IF: 1. Your headache gets worse or lasts longer than 24 hours. 2. You develop a temperature over 100.5 F (38 C) 3. You need to take medicine to relieve headache pain more than 3 times a week. RETURN TO THE ED IF: 1. Your headache is different from any headache you ever had before, or is the worst headache of your life. 2. You feel confused or drowsy. 3. Your neck feels stiff. 4. You have a temperature of 102 F (39 C) or higher. 5. You have eye problems such as sensitivity to light or blurred or double vision. 6. You start to vomit. 7. You have difficulty walking, talking, or moving your arms or legs. documented in this encounterNationwide Children'[facility] Hospital07-02-2022 History of Present illness Narrative* Arpita Izaguirre APRN.GERRI - 02/21/2022 11:04 AM EDT Subjective HPI Jessica Liao is a 31 year old female who presents with headache x 2 days and left ear painx 1 day. She has been swimming recently. She took tylenol and ibuprofen and sudafed without relief.Denies fever, chills, associated URI symptoms. Review of Systems Constitutional: Negative for fever. HENT: Positive for ear pain. Respiratory: Negative for cough. Cardiovascular: Negative. Neurological: Positive for headaches. Negative for dizziness, sensory change, speech change and focal weakness. 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 PONV (postoperative nausea and vomiting) depression Thymoma THYMOLIPOMA Thyroid disease 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 fluticasone (FLONASE) 50 mcg/actuation nasal spray Use 2 Sprays in each nostril once daily. Rinse mouth after use. busPIRone (BUSPAR) 10 mg tablet Take 1 tablet by mouth three times daily as needed. albuterol HFA (VENTOLIN HFA) 90 mcg/actuation inhaler Inhale 2 Puffs as instructed every 4 hours asneeded for wheezing/shortness of breath. EPINEPHrine (EPIPEN) 0.3 mg/0.3 mL auto-injector Inject 0.3 mL intramuscularly as needed (For allergic reaction). Use as directed ofloxacin (FLOXIN) 0.3 % otic solution Use 5 Drops in the left ear twice daily for 7 days. cyclobenzaprine (FLEXERIL) 10 mg tablet Use 1/2 - 1 tablet at bedtime FAMILY HISTORY Problem Relation Age of Onset Alcohol/Drug Mother DRUG Psychiatry Mother PTSD,ANXIET/DEPRESSION Heart Mother Cancer Mother Melanoma Suicide / Suicidal Behaviors Sister Cancer Brother Melanoma Cancer Maternal Grandmother Heart Maternal Grandmother Alcohol/Drug Maternal Grandfather ETOH Cancer Maternal Grandfather LUNG ADD/ADHD Daughter Asthma Daughter No Known Problems Son No Known Problems Son Alcohol/Drug Maternal Aunt DRUG Thyroid Maternal Aunt Social History Tobacco Use Smoking status: Current Every Day Smoker Packs/day: 1.00 Years: 15.00 Pack years: 15.00 Smokeless tobacco: Never Used Vaping Use Vaping Use: Never used Substance Use Topics Alcohol use: No Drug use: Yes Frequency: 3.0 times per week Types: Marijuana Comment: denies use since 07/2020 Objective Physical Exam Vitals and nursing note reviewed. Constitutional: Appearance: Normal appearance. HENT: Right Ear: Tympanic membrane, ear canal and external ear normal. Left Ear: Tympanic membrane and external ear normal. Drainage, swelling and tenderness present. Eyes: Pupils: Pupils are equal, round, and reactive to light. Cardiovascular: Rate and Rhythm: Normal rate and regular rhythm. Heart sounds: Normal heart sounds. Pulmonary: Effort: Pulmonary effort is normal. No respiratory distress. Breath sounds: Normal breath sounds. No wheezing or rales. Skin: General: Skin is warm and dry. Findings: No erythema or rash. Neurological: Mental Status: She is alert and oriented to person, place, and time. Motor: Motor function is intact. No weakness or tremor. Coordination: Coordination is intact. Gait: Gait is intact. Gait normal. ASSESSMENT/PLAN: 1. Headache, unspecified headache type - ICD9: 784.0, ICD10: R51.9 (primary diagnosis) - KETOROLAC 60 MG/2 ML INTRAMUSCULAR SOLUTION- given in office. Pt states no improvement with Toradol. - COVID test done today 2. Acute swimmer's ear of left side - ICD9: 380.12, ICD10: H60.332 - OFLOXACIN 0.3 % EAR DROPS - Follow-up with your PCP in 3-5 days if symptoms have not improved or sooner if symptoms worsen - Discussed red flags and need for immediate medical evaluation if any occur. - Discussed supportive care treatment with fluids, rest and analgesia. - Discussed expected course of illness Arpita Izaguirre APRN.BOROUGH COORDINATOR documented in this encounterNationwide [facility]05-13-[facility] History of Present illness Narrative* Azar Smith MD - 01/02/2022 2:16 PM EDT No chief complaint on file. HPI: Patient presents today for office visit for acute visit. Was given flonase, flexeril, steroids and zyrtec She had requested fioricet which she was given while by OB. Was told to give medicine time to work that were given yesterday. Pain is worse on back of her neck and down her right side. Headache is mostly from the back of the neck to both temporal areas. Pressure behind the eyes is helping. No blurred vision, double vision, numbness or weakness. No cough or congestion. Some nausea with prednisone. No fever. No injury to the neck. Did use the flexeril last night but did not help. Not breast feeding. Has a hx of migraines. This is not quite the same. Was on imitrex in the past. Not the worst headache she has had. No thunderclap headache. Migraines are not occurring all the time. Is having issues with her right wrist. Pops and will sticks at times. Has been there for close to ayear. No trauma. No swelling or redness. Worse with certain movements. . See urgent care visit from yesterday: HPI Jessica Liao is a 31 year old female who presents today for CC of neck strain, from base of head radiating down to scapula. She is also having a headache, frontal sinus area that started in the past couple days. She denies any facial drooping, weakness or slurred speech. She has used ibuprofen for both without relief. She denies any h/o seasonal allergies. She denies any known trauma or injury. She also is concerned that she was scratched by a cat 2 weeks ago, and wonders if this couldbe tetanus. Last tetanus was 2016. MEDICATIONS: Current Outpatient Medications Medication Sig cetirizine (ZYRTEC) 10 mg tablet Take 1 tablet by mouth once daily. fluticasone (FLONASE) 50 mcg/actuation nasal spray Use 2 Sprays in each nostril once daily. Rinse mouth after use. cyclobenzaprine (FLEXERIL) 10 mg tablet Use 1/2 - 1 tablet at bedtime predniSONE (DELTASONE) 20 mg tablet Take 2 tablets by mouth once daily for 5 days. busPIRone (BUSPAR) 10 mg tablet Take 1 tablet by mouth three times daily as needed. albuterol HFA (VENTOLIN HFA) 90 mcg/actuation inhaler Inhale 2 Puffs as instructed every 4 hours asneeded for wheezing/shortness of breath. EPINEPHrine (EPIPEN) 0.3 mg/0.3 mL auto-injector Inject 0.3 mL intramuscularly as needed (For allergic reaction). Use as directed No current facility-administered medications for this visit. 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 PONV (postoperative nausea and vomiting) depression Thymoma THYMOLIPOMA Thyroid disease 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 TONSILLECTOMY PRIMARY/SECONDARY <AGE 12 Tonsillectomy w/ adenoids FAMILY HISTORY Problem Relation Age of Onset Alcohol/Drug Mother DRUG Psychiatry Mother PTSD,ANXIET/DEPRESSION Heart Mother Cancer Mother Melanoma Suicide / Suicidal Behaviors Sister Cancer Brother Melanoma Cancer Maternal Grandmother Heart Maternal Grandmother Alcohol/Drug Maternal Grandfather ETOH Cancer Maternal Grandfather LUNG ADD/ADHD Daughter Asthma Daughter No Known Problems Son No Known Problems Son Alcohol/Drug Maternal Aunt DRUG Thyroid Maternal Aunt Social History Tobacco Use Smoking status: Current Every Day Smoker Packs/day: 1.00 Years: 15.00 Pack years: 15.00 Smokeless tobacco: Never Used Vaping Use Vaping Use: Never used Substance Use Topics Alcohol use: No Drug use: Yes Frequency: 3.0 times per week Types: Marijuana Comment: denies use since 07/2020 Reviewed current medications, allergies, past medical history, surgical history, family history andsocial history today. REVIEW OF SYSTEMS All other reviewed and negative other than HPI. VITALS: BP 132/82 Pulse 104 Wt 71.2 kg (157 lb) LMP 01/01/2022 (Exact Date) No BMI 28.72 kg/m Last 4 Encounter Wt Readings: Date: Wt: 01/01/2022 69.9 kg (154 lb 3.2 oz) 07/30/2021 73.9 kg (163 lb) 07/22/2021 76.7 kg (169 lb) 07/18/2021 80.3 kg (177 lb) PHYSICAL EXAMINATION: General appearance: Well appearing, alert, in no acute distress, well-hydrated, well nourished. Skin: Skin color, texture, turgor normal, no suspicious rashes or lesions Head: Normocephalic, no masses, lesions, tenderness or abnormalities Neck: Supple, no adenopathy;tender over posterior neck musculature. Back: Normal exam Lungs: Lungs clear to auscultation. No wheezing, rhonchi, rales Heart: RRR without murmur, gallop, or rubs. No ectopy Abdomen: Normal abdominal exam, Abdomen soft, non-tender. Bowel sounds normal. No masses, organomegaly Extremities: No deformities, edema, skin discoloration, clubbing or cyanosis. Good capillary refill. Wrist is unremarkable. Tender over distal radius. No snuff box tenderness. Neuro: Gait normal. Reflexes normal and symmetric. Sensation grossly intact., Negative findings: muscle tone normal ASSESSMENT/PLAN: 1. Headache, unspecified headache type - ICD9: 784.0, ICD10: R51.9 (primary diagnosis) - continue flexeril and prednisone and tylenol. Heat alternating with ice. Red flags for re-assessment reviewed with patient in detail. 2. Neck pain - ICD9: 723.1, ICD10: M54.2 Xray if persists. 3. Wrist pain. Steroids Get xray. Red flags for re-assessment reviewed with patient in detail. Azar Smith documented in this encounterNationwide Children'[facility]05-13-2022 Miscellaneous Notes* Telephone Encounter - Elsa Haas Ma - 01/02/2022 11:52 AM EDT Pt scheduled * Telephone Encounter - Azar Smith MD - 01/02/2022 11:14 AM EDT I would use the meds urgent care gave her. If we need to prescribe that would need to see me * Telephone Encounter - Yesenia Heredia LPN - 01/02/2022 10:36 AM EDT Patient calling asking if PCP would refill her headache medication rx. She has not used it since her daughter was born 5 months ago. 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 She has had headache for past several days now. Urgent care provider told her to get rx refill from her PCP. Please advise Patient has been identified by name and date of : Yes Patient phones for refill(s): Pending Prescriptions Disp Refills [id number] 50 MG-300 MG-40 MG CAPSULE 20 capsule 0 Sig: Take 1 capsule by mouth every 4 hours as needed for headache. COCO: No Date of last office visit in primary care: 11/21/2020, no future appt scheduled Last 2 Encounter Wt Readings: Date: Wt: 01/01/2022 69.9 kg (154 lb 3.2 oz) 07/30/2021 73.9 kg (163 lb) Previous labs/tests for medication: Not applicable Please advise. Thank you. Yesenia Heredia LPN documented in this encounterNationwide Children'[facility] Hospital05-12-2022 Instructions* Patient Instructions* Lacey Ashley APRN.GERRI - 01/01/2022 2:15 PM EDT ASSESSMENT/PLAN: 1. Cat scratch - ICD9: 919.0, E906.8, ICD10: W55.03XA (primary diagnosis) Update tdap, no sig no infection - TDAP VACCINE AGE 7+ IM 2. Muscle strain - ICD9: 848.9, ICD10: T14.8XXA Flexeril 1/2 - 1 tablet at bedtime * Prednisone 40 mg (2 tablets) per day for 5 days, take in morning or early in day * Do not NSAIDs during this 5 day course (ibuprofen, naproxen, Motrin, Aleve, Advil) Tylenol only during prednisone use 3. Headache, unspecified headache type - ICD9: 784.0, ICD10: R51.9 Zyrtec/flonase due to possible seasonal allergies * Follow up with primary care provider if no improvement with treatment documented in this encounterNationwide Children'S Hospital05-12-2022 History of Present illness Narrative* Lacey Ashley APRN.CNP - 01/01/2022 2:04 PM EDT Images from the original note were not included. Subjective The history is provided by the patient. No diplomatic interpreter/translator was used. HPI Jessica Liao is a 31 year old female who presents today for CC of neck strain, from base of head radiating down to scapula. She is also having a headache, frontal sinus area that started in the past couple days. She denies any facial drooping, weakness or slurred speech. She has used ibuprofen for both without relief. She denies any h/o seasonal allergies. She denies any known trauma or injury. She also is concerned that she was scratched by a cat 2 weeks ago, and wonders if this couldbe tetanus. Last tetanus was 2016. BP 122/94 Pulse 107 Temp 37.1 C (98.8 F) Resp 23 Wt 69.9 kg (154 lb 3.2 oz) LMP 10/15/2020 (Exact Date) SpO2 98% BMI 28.20 kg/m Social History Tobacco Use Smoking status: Current Every Day Smoker Packs/day: 1.00 Years: 15.00 Pack years: 15.00 Smokeless tobacco: Never Used Vaping Use Vaping Use: Never used Substance Use Topics Alcohol use: No Drug use: Yes Frequency: 3.0 times per week Types: Marijuana Comment: denies use since 07/2020 PAST MEDICAL HISTORY Diagnosis Date Abnormal Pap smear of cervix AGE 15 +HPV Adjustment disorder Anemia ANEMIA WITH Asthma CHILDHOOD ASTHMA Breast disorder NERVE DAMAGE IN LEFT BREAST DUE TO PREVIOUS SURGERY Chlamydia 2015 FRACTURE AGE 9 FEMUR H/O sinus tachycardia 2011 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 Musculoskeletal: Positive for neck pain. Negative for joint pain and myalgias. Skin: Negative for itching and rash. Neurological: Positive for headaches (frontal, sinus). All other systems reviewed and are negative. Objective Physical Exam Vitals and nursing note reviewed. HENT: Head: Normocephalic and atraumatic. Nose: Nose normal. Mouth/Throat: Mouth: Mucous membranes are moist. Eyes: Extraocular Movements: Extraocular movements intact. Conjunctiva/sclera: Conjunctivae normal. Pupils: Pupils are equal, round, and reactive to light. Cardiovascular: Rate and Rhythm: Normal rate and regular rhythm. Heart sounds: Normal heart sounds. Pulmonary: Effort: Pulmonary effort is normal. Breath sounds: Normal breath sounds. Skin: General: Skin is warm and dry. Neurological: Mental Status: She is alert and oriented to person, place, and time. Cranial Nerves: Cranial nerves are intact. Sensory: Sensation is intact. Motor: Motor function is intact. Coordination: Coordination is intact. Deep Tendon Reflexes: Reflexes are normal and symmetric. Psychiatric: Mood and Affect: Affect normal. ASSESSMENT/PLAN: 1. Cat scratch - ICD9: 919.0, E906.8, ICD10: W55.03XA (primary diagnosis) No sign of infection, update tetanus Update tdap, no sig no infection - TDAP VACCINE AGE 7+ IM 2. Muscle strain - ICD9: 848.9, ICD10: T14.8XXA Neck muscle strain Ice/heat prn Stretches Flexeril 1/2 - 1 tablet at bedtime * Prednisone 40 mg (2 tablets) per day for 5 days, take in morning or early in day * Do not NSAIDs during this 5 day course (ibuprofen, naproxen, Motrin, Aleve, Advil) Tylenol only during prednisone use 3. Headache, unspecified headache type - ICD9: 784.0, ICD10: R51.9 Appears to be strain or seasonal allergies Prednisone Zyrtec/flonase due to possible seasonal allergies * Follow up with primary care provider if no improvement with treatment Diagnosis and treatment plan were discussed and questions were answered to the patient's satisfaction. Pt acknowledged understanding of concepts and follow up plan. Specific signs and symptoms that would indicate the need for higher level of care were discussed indetail warranting prompt ER evaluation. Lacey Ashley APRN.BOROUGH COORDINATOR documented in this encounterNationwide Children'[facility] Hospital09-26-2017 History of Past illness Narrative* Problem Noted Date Resolved Date Group B Streptococcus carrier, antepartum 201606/10/2017 Chest wall pain 08/12/2016 11/24/2016 High-risk supervision 05/04/2013 11/04/2016 Drug dependence complicating 3 06/10/2017 Overview: May 04, 2013 referred to steps for evaluation Abnormal finding on screen 02/27/2013 11/04/2016 Overview: Sequential screen risk increased from 1:4300 to 1:180 But screen negative overall since cutoff for positive is 1:100. Attempted to reach patient to review results and offer amniocentesis if desired, unable to reach, Will discuss at next visit if still unable to reach. SM UTI in 11/28/2012 08/26/2016 Overview: 11/28/12 - rx given, needs ABA - KK Previous section 11/24/20122016 Overview: 11/24/2012Pt had two previous C sections, one in [place] and the other at [facility]. She desires a repeat C section by Dr. Mercedes Beltre .Patient signed a release of records form to obtain her previous report from [facility]. Exposure to parvovirus 11/24/2012 7 Overview: 11/24/2012Patient states she was exposed to parvovirus, see linked telephone note from November 14. Patient had a negative parvovirus IgG and IgM on November 14. Repeat labs in [address] Vallejo. January 03, 2013 RR- recheck today Dysuria in 11/24/2012 11/24/2016 Overview: 11/24/2012Patient states she has noted dysuria on and off for several weeks. She denies any dysuria for the past 3 days. Urine culture ordered by Dr. Nails. Pelvic pain in 11/24/2012 017 Overview: 11/22/2012Patient was seen at [facility] [place] on November 22 for pelvic pain in . An ultrasound was done on that date that revealed an intrauterine with moderate subchorionic hemorrhage inferior to the gestational sac. Second area of an anechoic avascular changes right lateral to the gestational sac may be a blighted twin gestation versus subchorionic hemorrhage. Estimated gestational age at 7 weeks 6 days.Patient states that she has been noticing the pain occurring less often since she was seen at the hospital. She denies any bleeding this . She denies any pelvic pain today. [facility] ultrasound sent to Dr. Beltre's office for review. Abdominal pain 09/20/2012 01/03/2013 Acute cholecystitis with chronic cholecystitis 0 09/20/2012 01/03/2013 documented as of this encounter (statuses as of 01/01/2022) [facility] History of Past illness Narrative* Problem Noted Date Resolved Date Group B Streptococcus carrier, antepartum 201606/10/2017 Chest wall pain 08/12/2016 11/24/2016 High-risk supervision 05/04/2013 11/04/2016 Drug dependence complicating 3 06/10/2017 Overview: May 04, 2013 referred to steps for evaluation Abnormal finding on screen 02/27/2013 11/04/2016 Overview: Sequential screen risk increased from 1:4300 to 1:180 But screen negative overall since cutoff for positive is 1:100. Attempted to reach patient to review results and offer amniocentesis if desired, unable to reach, Will discuss at next visit if still unable to reach. SM UTI in 11/28/2012 08/26/2016 Overview: 11/28/12 - rx given, needs ABA - KK Previous section 11/24/20122016 Overview: 11/24/2012Pt had two previous C sections, one in [place] and the other at [facility]. She desires a repeat C section by Dr. Mercedes Beltre .Patient signed a release of records form to obtain her previous report from [facility]. Exposure to parvovirus 11/24/2012 7 Overview: 11/24/2012Patient states she was exposed to parvovirus, see linked telephone note from November 14. Patient had a negative parvovirus IgG and IgM on November 14. Repeat labs in [address] Vallejo. January 03, 2013 RR- recheck today Dysuria in 11/24/2012 11/24/2016 Overview: 11/24/2012Patient states she has noted dysuria on and off for several weeks. She denies any dysuria for the past 3 days. Urine culture ordered by Dr. Nails. Pelvic pain in 11/24/2012 017 Overview: 11/22/2012Patient was seen at [facility] [place] on November 22 for pelvic pain in . An ultrasound was done on that date that revealed an intrauterine with moderate subchorionic hemorrhage inferior to the gestational sac. Second area of an anechoic avascular changes right lateral to the gestational sac may be a blighted twin gestation versus subchorionic hemorrhage. Estimated gestational age at 7 weeks 6 days.Patient states that she has been noticing the pain occurring less often since she was seen at the hospital. She denies any bleeding this . She denies any pelvic pain today. [facility] ultrasound sent to Dr. Beltre's office for review. Abdominal pain 09/20/2012 01/03/2013 Acute cholecystitis with chronic cholecystitis 0 09/20/2012 01/03/2013 documented as of this encounter (statuses as of 01/02/2022) [facility] of Past illness Narrative* Problem Noted Date Resolved Date Group B Streptococcus carrier, antepartum 201606/10/2017 Chest wall pain 08/12/2016 11/24/2016 High-risk supervision 05/04/2013 11/04/2016 Drug dependence complicating 3 06/10/2017 Overview: May 04, 2013 referred to steps for evaluation Abnormal finding on screen 02/27/2013 11/04/2016 Overview: Sequential screen risk increased from 1:4300 to 1:180 But screen negative overall since cutoff for positive is 1:100. Attempted to reach patient to review results and offer amniocentesis if desired, unable to reach, Will discuss at next visit if still unable to reach. SM UTI in 11/28/2012 08/26/2016 Overview: 11/28/12 - rx given, needs ABA - KK Previous section 11/24/20122016 Overview: 11/24/2012Pt had two previous C sections, one in [place] and the other at [facility]. She desires a repeat C section by Dr. Mercedes Beltre .Patient signed a release of records form to obtain her previous report from [facility]. Exposure to parvovirus 11/24/2012 7 Overview: 11/24/2012Patient states she was exposed to parvovirus, see linked telephone note from November 14. Patient had a negative parvovirus IgG and IgM on November 14. Repeat labs in [address] Vallejo. January 03, 2013 RR- recheck today Dysuria in 11/24/2012 11/24/2016 Overview: 11/24/2012Patient states she has noted dysuria on and off for several weeks. She denies any dysuria for the past 3 days. Urine culture ordered by Dr. Nails. Pelvic pain in 11/24/2012 017 Overview: 11/22/2012Patient was seen at [facility] [place] on November 22 for pelvic pain in . An ultrasound was done on that date that revealed an intrauterine with moderate subchorionic hemorrhage inferior to the gestational sac. Second area of an anechoic avascular changes right lateral to the gestational sac may be a blighted twin gestation versus subchorionic hemorrhage. Estimated gestational age at 7 weeks 6 days.Patient states that she has been noticing the pain occurring less often since she was seen at the hospital. She denies any bleeding this . She denies any pelvic pain today. [facility] ultrasound sent to Dr. Beltre's office for review. Abdominal pain 09/20/2012 01/03/2013 Acute cholecystitis with chronic cholecystitis 0 09/20/2012 01/03/2013 documented as of this encounter (statuses as of 01/02/2022) [facility] of Past illness Narrative* Problem Noted Date Resolved Date Group B Streptococcus carrier, antepartum 201606/10/2017 Chest wall pain 08/12/2016 11/24/2016 High-risk supervision 05/04/2013 11/04/2016 Drug dependence complicating 3 06/10/2017 Overview: May 04, 2013 referred to steps for evaluation Abnormal finding on screen 02/27/2013 11/04/2016 Overview: Sequential screen risk increased from 1:4300 to 1:180 But screen negative overall since cutoff for positive is 1:100. Attempted to reach patient to review results and offer amniocentesis if desired, unable to reach, Will discuss at next visit if still unable to reach. SM UTI in 11/28/2012 08/26/2016 Overview: 11/28/12 - rx given, needs ABA - KK Previous section 11/24/20122016 Overview: 11/24/2012Pt had two previous C sections, one in [place] and the other at [facility]. She desires a repeat C section by Dr. Mercedes Beltre .Patient signed a release of records form to obtain her previous report from [facility]. Exposure to parvovirus 11/24/2012 7 Overview: 11/24/2012Patient states she was exposed to parvovirus, see linked telephone note from November 14. Patient had a negative parvovirus IgG and IgM on November 14. Repeat labs in [address] Vallejo. January 03, 2013 RR- recheck today Dysuria in 11/24/2012 11/24/2016 Overview: 11/24/2012Patient states she has noted dysuria on and off for several weeks. She denies any dysuria for the past 3 days. Urine culture ordered by Dr. Nails. Pelvic pain in 11/24/2012 017 Overview: 11/22/2012Patient was seen at [facility] [place] on November 22 for pelvic pain in . An ultrasound was done on that date that revealed an intrauterine with moderate subchorionic hemorrhage inferior to the gestational sac. Second area of an anechoic avascular changes right lateral to the gestational sac may be a blighted twin gestation versus subchorionic hemorrhage. Estimated gestational age at 7 weeks 6 days.Patient states that she has been noticing the pain occurring less often since she was seen at the hospital. She denies any bleeding this . She denies any pelvic pain today. [facility] ultrasound sent to Dr. Beltre's office for review. Abdominal pain 09/20/2012 01/03/2013 Acute cholecystitis with chronic cholecystitis 0 09/20/2012 01/03/2013 documented as of this encounter (statuses as of 02/21/2022) [facility] of Past illness Narrative* Problem Noted Date Resolved Date Group B Streptococcus carrier, antepartum 201606/10/2017 Chest wall pain 08/12/2016 11/24/2016 High-risk supervision 05/04/2013 11/04/2016 Drug dependence complicating 3 06/10/2017 Overview: May 04, 2013 referred to steps for evaluation Abnormal finding on screen 02/27/2013 11/04/2016 Overview: Sequential screen risk increased from 1:4300 to 1:180 But screen negative overall since cutoff for positive is 1:100. Attempted to reach patient to review results and offer amniocentesis if desired, unable to reach, Will discuss at next visit if still unable to reach. SM UTI in 11/28/2012 08/26/2016 Overview: 11/28/12 - rx given, needs ABA - KK Previous section 11/24/20122016 Overview: 11/24/2012Pt had two previous C sections, one in [place] and the other at [facility]. She desires a repeat C section by Dr. Mercedes Beltre .Patient signed a release of records form to obtain her previous report from [facility]. Exposure to parvovirus 11/24/2012 7 Overview: 11/24/2012Patient states she was exposed to parvovirus, see linked telephone note from November 14. Patient had a negative parvovirus IgG and IgM on November 14. Repeat labs in [address] Vallejo. January 03, 2013 RR- recheck today Dysuria in 11/24/2012 11/24/2016 Overview: 11/24/2012Patient states she has noted dysuria on and off for several weeks. She denies any dysuria for the past 3 days. Urine culture ordered by Dr. Nails. Pelvic pain in 11/24/2012 017 Overview: 11/22/2012Patient was seen at [facility] [place] on November 22 for pelvic pain in . An ultrasound was done on that date that revealed an intrauterine with moderate subchorionic hemorrhage inferior to the gestational sac. Second area of an anechoic avascular changes right lateral to the gestational sac may be a blighted twin gestation versus subchorionic hemorrhage. Estimated gestational age at 7 weeks 6 days.Patient states that she has been noticing the pain occurring less often since she was seen at the hospital. She denies any bleeding this . She denies any pelvic pain today. [facility] ultrasound sent to Dr. Beltre's office for review. Abdominal pain 09/20/2012 01/03/2013 Acute cholecystitis with chronic cholecystitis 0 09/20/2012 01/03/2013 documented as of this encounter (statuses as of 02/21/2022) [facility]2017 History of Past illness Narrative* Problem Noted Date Resolved Date Group B Streptococcus carrier, antepartum 201606/10/2017 Chest wall pain 08/12/2016 11/24/2016 High-risk supervision 05/04/2013 11/04/2016 Drug dependence complicating 3 06/10/2017 Overview: May 04, 2013 referred to steps for evaluation Abnormal finding on screen 02/27/2013 11/04/2016 Overview: Sequential screen risk increased from 1:4300 to 1:180 But screen negative overall since cutoff for positive is 1:100. Attempted to reach patient to review results and offer amniocentesis if desired, unable to reach, Will discuss at next visit if still unable to reach. SM UTI in 11/28/2012 08/26/2016 Overview: 11/28/12 - rx given, needs ABA - KK Previous section 11/24/20122016 Overview: 11/24/2012Pt had two previous C sections, one in [place] and the other at [facility]. She desires a repeat C section by Dr. Mercedes Beltre .Patient signed a release of records form to obtain her previous report from [facility]. Exposure to parvovirus 11/24/2012 7 Overview: 11/24/2012Patient states she was exposed to parvovirus, see linked telephone note from November 14. Patient had a negative parvovirus IgG and IgM on November 14. Repeat labs in [address] Vallejo. January 03, 2013 RR- recheck today Dysuria in 11/24/2012 11/24/2016 Overview: 11/24/2012Patient states she has noted dysuria on and off for several weeks. She denies any dysuria for the past 3 days. Urine culture ordered by Dr. Nails. Pelvic pain in 11/24/2012 017 Overview: 11/22/2012Patient was seen at [facility] [place] on November 22 for pelvic pain in . An ultrasound was done on that date that revealed an intrauterine with moderate subchorionic hemorrhage inferior to the gestational sac. Second area of an anechoic avascular changes right lateral to the gestational sac may be a blighted twin gestation versus subchorionic hemorrhage. Estimated gestational age at 7 weeks 6 days.Patient states that she has been noticing the pain occurring less often since she was seen at the hospital. She denies any bleeding this . She denies any pelvic pain today. [facility] ultrasound sent to Dr. Beltre's office for review. Abdominal pain 09/20/2012 01/03/2013 Acute cholecystitis with chronic cholecystitis 0 09/20/2012 01/03/2013 documented as of this encounter (statuses as of 02/22/2022) [facility] History of Past illness Narrative* Problem Noted Date Resolved Date Group B Streptococcus carrier, antepartum 201606/10/2017 Chest wall pain 08/12/2016 11/24/2016 High-risk supervision 05/04/2013 11/04/2016 Drug dependence complicating 3 06/10/2017 Overview: May 04, 2013 referred to steps for evaluation Abnormal finding on screen 02/27/2013 11/04/2016 Overview: Sequential screen risk increased from 1:4300 to 1:180 But screen negative overall since cutoff for positive is 1:100. Attempted to reach patient to review results and offer amniocentesis if desired, unable to reach, Will discuss at next visit if still unable to reach. SM UTI in 11/28/2012 08/26/2016 Overview: 11/28/12 - rx given, needs ABA - KK Previous section 11/24/20122016 Overview: 11/24/2012Pt had two previous C sections, one in [place] and the other at [facility]. She desires a repeat C section by Dr. Mercedes Beltre .Patient signed a release of records form to obtain her previous report from [facility]. Exposure to parvovirus 11/24/2012 7 Overview: 11/24/2012Patient states she was exposed to parvovirus, see linked telephone note from November 14. Patient had a negative parvovirus IgG and IgM on November 14. Repeat labs in [address] Vallejo. January 03, 2013 RR- recheck today Dysuria in 11/24/2012 11/24/2016 Overview: 11/24/2012Patient states she has noted dysuria on and off for several weeks. She denies any dysuria for the past 3 days. Urine culture ordered by Dr. Nails. Pelvic pain in 11/24/2012 017 Overview: 11/22/2012Patient was seen at [facility] [place] on November 22 for pelvic pain in . An ultrasound was done on that date that revealed an intrauterine with moderate subchorionic hemorrhage inferior to the gestational sac. Second area of an anechoic avascular changes right lateral to the gestational sac may be a blighted twin gestation versus subchorionic hemorrhage. Estimated gestational age at 7 weeks 6 days.Patient states that she has been noticing the pain occurring less often since she was seen at the hospital. She denies any bleeding this . She denies any pelvic pain today. [facility] ultrasound sent to Dr. Beltre's office for review. Abdominal pain 09/20/2012 01/03/2013 Acute cholecystitis with chronic cholecystitis 0 09/20/2012 01/03/2013 documented as of this encounter (statuses as of 02/27/2022) [facility] History of Past illness Narrative* Problem Noted Date Resolved Date Group B Streptococcus carrier, antepartum 201606/10/2017 Chest wall pain 08/12/2016 11/24/2016 High-risk supervision 05/04/2013 11/04/2016 Drug dependence complicating 3 06/10/2017 Overview: May 04, 2013 referred to steps for evaluation Abnormal finding on screen 02/27/2013 11/04/2016 Overview: Sequential screen risk increased from 1:4300 to 1:180 But screen negative overall since cutoff for positive is 1:100. Attempted to reach patient to review results and offer amniocentesis if desired, unable to reach, Will discuss at next visit if still unable to reach. SM UTI in 11/28/2012 08/26/2016 Overview: 11/28/12 - rx given, needs ABA - KK Previous section 11/24/20122016 Overview: 11/24/2012Pt had two previous C sections, one in [place] and the other at [facility]. She desires a repeat C section by Dr. Mercedes Beltre .Patient signed a release of records form to obtain her previous report from [facility]. Exposure to parvovirus 11/24/2012 7 Overview: 11/24/2012Patient states she was exposed to parvovirus, see linked telephone note from November 14. Patient had a negative parvovirus IgG and IgM on November 14. Repeat labs in [address] Vallejo. January 03, 2013 RR- recheck today Dysuria in 11/24/2012 11/24/2016 Overview: 11/24/2012Patient states she has noted dysuria on and off for several weeks. She denies any dysuria for the past 3 days. Urine culture ordered by Dr. Nails. Pelvic pain in 11/24/2012 017 Overview: 11/22/2012Patient was seen at [facility] [place] on November 22 for pelvic pain in . An ultrasound was done on that date that revealed an intrauterine with moderate subchorionic hemorrhage inferior to the gestational sac. Second area of an anechoic avascular changes right lateral to the gestational sac may be a blighted twin gestation versus subchorionic hemorrhage. Estimated gestational age at 7 weeks 6 days.Patient states that she has been noticing the pain occurring less often since she was seen at the hospital. She denies any bleeding this . She denies any pelvic pain today. [facility] ultrasound sent to Dr. Beltre's office for review. Abdominal pain 09/20/2012 01/03/2013 Acute cholecystitis with chronic cholecystitis 0 09/20/2012 01/03/2013 documented as of this encounter (statuses as of 02/28/2022) [facility] History of Past illness Narrative* Problem Noted Date Resolved Date Group B Streptococcus carrier, antepartum 201606/10/2017 Chest wall pain 08/12/2016 11/24/2016 High-risk supervision 05/04/2013 11/04/2016 Drug dependence complicating 3 06/10/2017 Overview: May 04, 2013 referred to steps for evaluation Abnormal finding on screen 02/27/2013 11/04/2016 Overview: Sequential screen risk increased from 1:4300 to 1:180 But screen negative overall since cutoff for positive is 1:100. Attempted to reach patient to review results and offer amniocentesis if desired, unable to reach, Will discuss at next visit if still unable to reach. SM UTI in 11/28/2012 08/26/2016 Overview: 11/28/12 - rx given, needs ABA - KK Previous section 11/24/20122016 Overview: 11/24/2012Pt had two previous C sections, one in [place] and the other at [facility]. She desires a repeat C section by Dr. Mercedes Beltre .Patient signed a release of records form to obtain her previous report from [facility]. Exposure to parvovirus 11/24/2012 7 Overview: 11/24/2012Patient states she was exposed to parvovirus, see linked telephone note from November 14. Patient had a negative parvovirus IgG and IgM on November 14. Repeat labs in [address] Vallejo. January 03, 2013 RR- recheck today Dysuria in 11/24/2012 11/24/2016 Overview: 11/24/2012Patient states she has noted dysuria on and off for several weeks. She denies any dysuria for the past 3 days. Urine culture ordered by Dr. Nails. Pelvic pain in 11/24/2012 017 Overview: 11/22/2012Patient was seen at [facility] [place] on November 22 for pelvic pain in . An ultrasound was done on that date that revealed an intrauterine with moderate subchorionic hemorrhage inferior to the gestational sac. Second area of an anechoic avascular changes right lateral to the gestational sac may be a blighted twin gestation versus subchorionic hemorrhage. Estimated gestational age at 7 weeks 6 days.Patient states that she has been noticing the pain occurring less often since she was seen at the hospital. She denies any bleeding this . She denies any pelvic pain today. [facility] ultrasound sent to Dr. Beltre's office for review. Abdominal pain 09/20/2012 01/03/2013 Acute cholecystitis with chronic cholecystitis 0 09/20/2012 01/03/2013 documented as of this encounter (statuses as of 03/18/2022) [facility] History of Past illness Narrative* Problem Noted Date Resolved Date Group B Streptococcus carrier, antepartum 201606/10/2017 Chest wall pain 08/12/2016 11/24/2016 High-risk supervision 05/04/2013 11/04/2016 Drug dependence complicating 3 06/10/2017 Overview: May 04, 2013 referred to steps for evaluation Abnormal finding on screen 02/27/2013 11/04/2016 Overview: Sequential screen risk increased from 1:4300 to 1:180 But screen negative overall since cutoff for positive is 1:100. Attempted to reach patient to review results and offer amniocentesis if desired, unable to reach, Will discuss at next visit if still unable to reach. SM UTI in 11/28/2012 08/26/2016 Overview: 11/28/12 - rx given, needs ABA - KK Previous section 11/24/20122016 Overview: 11/24/2012Pt had two previous C sections, one in [place] and the other at [facility]. She desires a repeat C section by Dr. Mercedes Beltre .Patient signed a release of records form to obtain her previous report from [facility]. Exposure to parvovirus 11/24/2012 7 Overview: 11/24/2012Patient states she was exposed to parvovirus, see linked telephone note from November 14. Patient had a negative parvovirus IgG and IgM on November 14. Repeat labs in [address] Vallejo. January 03, 2013 RR- recheck today Dysuria in 11/24/2012 11/24/2016 Overview: 11/24/2012Patient states she has noted dysuria on and off for several weeks. She denies any dysuria for the past 3 days. Urine culture ordered by Dr. Nails. Pelvic pain in 11/24/2012 017 Overview: 11/22/2012Patient was seen at [facility] [place] on November 22 for pelvic pain in . An ultrasound was done on that date that revealed an intrauterine with moderate subchorionic hemorrhage inferior to the gestational sac. Second area of an anechoic avascular changes right lateral to the gestational sac may be a blighted twin gestation versus subchorionic hemorrhage. Estimated gestational age at 7 weeks 6 days.Patient states that she has been noticing the pain occurring less often since she was seen at the hospital. She denies any bleeding this . She denies any pelvic pain today. [facility] ultrasound sent to Dr. Beltre's office for review. Abdominal pain 09/20/2012 01/03/2013 Acute cholecystitis with chronic cholecystitis 0 09/20/2012 01/03/2013 documented as of this encounter (statuses as of 03/23/2022) [facility] History of Past illness Narrative* Problem Noted Date Resolved Date Group B Streptococcus carrier, antepartum 201606/10/2017 Chest wall pain 08/12/2016 11/24/2016 High-risk supervision 05/04/2013 11/04/2016 Drug dependence complicating 3 06/10/2017 Overview: May 04, 2013 referred to steps for evaluation Abnormal finding on screen 02/27/2013 11/04/2016 Overview: Sequential screen risk increased from 1:4300 to 1:180 But screen negative overall since cutoff for positive is 1:100. Attempted to reach patient to review results and offer amniocentesis if desired, unable to reach, Will discuss at next visit if still unable to reach. SM UTI in 11/28/2012 08/26/2016 Overview: 11/28/12 - rx given, needs ABA - KK Previous section 11/24/20122016 Overview: 11/24/2012Pt had two previous C sections, one in [place] and the other at [facility]. She desires a repeat C section by Dr. Mercedes Beltre .Patient signed a release of records form to obtain her previous report from [facility]. Exposure to parvovirus 11/24/2012 7 Overview: 11/24/2012Patient states she was exposed to parvovirus, see linked telephone note from November 14. Patient had a negative parvovirus IgG and IgM on November 14. Repeat labs in [address] Vallejo. January 03, 2013 RR- recheck today Dysuria in 11/24/2012 11/24/2016 Overview: 11/24/2012Patient states she has noted dysuria on and off for several weeks. She denies any dysuria for the past 3 days. Urine culture ordered by Dr. Nails. Pelvic pain in 11/24/2012 017 Overview: 11/22/2012Patient was seen at [facility] [place] on November 22 for pelvic pain in . An ultrasound was done on that date that revealed an intrauterine with moderate subchorionic hemorrhage inferior to the gestational sac. Second area of an anechoic avascular changes right lateral to the gestational sac may be a blighted twin gestation versus subchorionic hemorrhage. Estimated gestational age at 7 weeks 6 days.Patient states that she has been noticing the pain occurring less often since she was seen at the hospital. She denies any bleeding this . She denies any pelvic pain today. [facility] ultrasound sent to Dr. Beltre's office for review. Abdominal pain 09/20/2012 01/03/2013 Acute cholecystitis with chronic cholecystitis 0 09/20/2012 01/03/2013 documented as of this encounter (statuses as of 03/29/2022) [facility] History of Past illness Narrative* Problem Noted Date Resolved Date Group B Streptococcus carrier, antepartum 201606/10/2017 Chest wall pain 08/12/2016 11/24/2016 High-risk supervision 05/04/2013 11/04/2016 Drug dependence complicating 3 06/10/2017 Overview: May 04, 2013 referred to steps for evaluation Abnormal finding on screen 02/27/2013 11/04/2016 Overview: Sequential screen risk increased from 1:4300 to 1:180 But screen negative overall since cutoff for positive is 1:100. Attempted to reach patient to review results and offer amniocentesis if desired, unable to reach, Will discuss at next visit if still unable to reach. SM UTI in 11/28/2012 08/26/2016 Overview: 11/28/12 - rx given, needs ABA - KK Previous section 11/24/20122016 Overview: 11/24/2012Pt had two previous C sections, one in [place] and the other at [facility]. She desires a repeat C section by Dr. Mercedes Beltre .Patient signed a release of records form to obtain her previous report from [facility]. Exposure to parvovirus 11/24/2012 7 Overview: 11/24/2012Patient states she was exposed to parvovirus, see linked telephone note from November 14. Patient had a negative parvovirus IgG and IgM on November 14. Repeat labs in [address] Vallejo. January 03, 2013 RR- recheck today Dysuria in 11/24/2012 11/24/2016 Overview: 11/24/2012Patient states she has noted dysuria on and off for several weeks. She denies any dysuria for the past 3 days. Urine culture ordered by Dr. Nails. Pelvic pain in 11/24/2012 017 Overview: 11/22/2012Patient was seen at [facility] [place] on November 22 for pelvic pain in . An ultrasound was done on that date that revealed an intrauterine with moderate subchorionic hemorrhage inferior to the gestational sac. Second area of an anechoic avascular changes right lateral to the gestational sac may be a blighted twin gestation versus subchorionic hemorrhage. Estimated gestational age at 7 weeks 6 days.Patient states that she has been noticing the pain occurring less often since she was seen at the hospital. She denies any bleeding this . She denies any pelvic pain today. [facility] ultrasound sent to Dr. Beltre's office for review. Abdominal pain 09/20/2012 01/03/2013 Acute cholecystitis with chronic cholecystitis 0 09/20/2012 01/03/2013 documented as of this encounter (statuses as of 04/26/2022) [facility] History of Past illness Narrative* Problem Noted Date Resolved Date Group B Streptococcus carrier, antepartum 201606/10/2017 Chest wall pain 08/12/2016 11/24/2016 High-risk supervision 05/04/2013 11/04/2016 Drug dependence complicating 3 06/10/2017 Overview: May 04, 2013 referred to steps for evaluation Abnormal finding on screen 02/27/2013 11/04/2016 Overview: Sequential screen risk increased from 1:4300 to 1:180 But screen negative overall since cutoff for positive is 1:100. Attempted to reach patient to review results and offer amniocentesis if desired, unable to reach, Will discuss at next visit if still unable to reach. SM UTI in 11/28/2012 08/26/2016 Overview: 11/28/12 - rx given, needs ABA - KK Previous section 11/24/20122016 Overview: 11/24/2012Pt had two previous C sections, one in [place] and the other at [facility]. She desires a repeat C section by Dr. Mercedes Betlre .Patient signed a release of records form to obtain her previous report from [facility]. Exposure to parvovirus 11/24/2012 7 Overview: 11/24/2012Patient states she was exposed to parvovirus, see linked telephone note from November 14. Patient had a negative parvovirus IgG and IgM on November 14. Repeat labs in [address] Vallejo. January 03, 2013 RR- recheck today Dysuria in 11/24/2012 11/24/2016 Overview: 11/24/2012Patient states she has noted dysuria on and off for several weeks. She denies any dysuria for the past 3 days. Urine culture ordered by Dr. Nails. Pelvic pain in 11/24/2012 017 Overview: 11/22/2012Patient was seen at [facility] [place] on November 22 for pelvic pain in . An ultrasound was done on that date that revealed an intrauterine with moderate subchorionic hemorrhage inferior to the gestational sac. Second area of an anechoic avascular changes right lateral to the gestational sac may be a blighted twin gestation versus subchorionic hemorrhage. Estimated gestational age at 7 weeks 6 days.Patient states that she has been noticing the pain occurring less often since she was seen at the hospital. She denies any bleeding this . She denies any pelvic pain today. [facility] ultrasound sent to Dr. Beltre's office for review. Abdominal pain 09/20/2012 01/03/2013 Acute cholecystitis with chronic cholecystitis 0 09/20/2012 01/03/2013 documented as of this encounter (statuses as of 04/30/2022) [facility] History of Past illness Narrative* Problem Noted Date Resolved Date Group B Streptococcus carrier, antepartum 201606/10/2017 Chest wall pain 08/12/2016 11/24/2016 High-risk supervision 05/04/2013 11/04/2016 Drug dependence complicating 3 06/10/2017 Overview: May 04, 2013 referred to steps for evaluation Abnormal finding on screen 02/27/2013 11/04/2016 Overview: Sequential screen risk increased from 1:4300 to 1:180 But screen negative overall since cutoff for positive is 1:100. Attempted to reach patient to review results and offer amniocentesis if desired, unable to reach, Will discuss at next visit if still unable to reach. SM UTI in 11/28/2012 08/26/2016 Overview: 11/28/12 - rx given, needs ABA - KK Previous section 11/24/20122016 Overview: 11/24/2012Pt had two previous C sections, one in [place] and the other at [facility]. She desires a repeat C section by Dr. Mercedes Beltre .Patient signed a release of records form to obtain her previous report from [facility]. Exposure to parvovirus 11/24/2012 7 Overview: 11/24/2012Patient states she was exposed to parvovirus, see linked telephone note from November 14. Patient had a negative parvovirus IgG and IgM on November 14. Repeat labs in [address] Vallejo. January 03, 2013 RR- recheck today Dysuria in 11/24/2012 11/24/2016 Overview: 11/24/2012Patient states she has noted dysuria on and off for several weeks. She denies any dysuria for the past 3 days. Urine culture ordered by Dr. Nails. Pelvic pain in 11/24/2012 017 Overview: 11/22/2012Patient was seen at [facility] [place] on November 22 for pelvic pain in . An ultrasound was done on that date that revealed an intrauterine with moderate subchorionic hemorrhage inferior to the gestational sac. Second area of an anechoic avascular changes right lateral to the gestational sac may be a blighted twin gestation versus subchorionic hemorrhage. Estimated gestational age at 7 weeks 6 days.Patient states that she has been noticing the pain occurring less often since she was seen at the hospital. She denies any bleeding this . She denies any pelvic pain today. [facility] ultrasound sent to Dr. Beltre's office for review. Abdominal pain 09/20/2012 01/03/2013 Acute cholecystitis with chronic cholecystitis 0 09/20/2012 01/03/2013 documented as of this encounter (statuses as of 05/01/2022) [facility] History of Past illness Narrative* Problem Noted Date Resolved Date Group B Streptococcus carrier, antepartum 201606/10/2017 Chest wall pain 08/12/2016 11/24/2016 High-risk supervision 05/04/2013 11/04/2016 Drug dependence complicating 3 06/10/2017 Overview: May 04, 2013 referred to steps for evaluation Abnormal finding on screen 02/27/2013 11/04/2016 Overview: Sequential screen risk increased from 1:4300 to 1:180 But screen negative overall since cutoff for positive is 1:100. Attempted to reach patient to review results and offer amniocentesis if desired, unable to reach, Will discuss at next visit if still unable to reach. SM UTI in 11/28/2012 08/26/2016 Overview: 11/28/12 - rx given, needs ABA - KK Previous section 11/24/20122016 Overview: 11/24/2012Pt had two previous C sections, one in [place] and the other at [facility]. She desires a repeat C section by Dr. Mercedes Beltre .Patient signed a release of records form to obtain her previous report from [facility]. Exposure to parvovirus 11/24/2012 7 Overview: 11/24/2012Patient states she was exposed to parvovirus, see linked telephone note from November 14. Patient had a negative parvovirus IgG and IgM on November 14. Repeat labs in [address] Vallejo. January 03, 2013 RR- recheck today Dysuria in 11/24/2012 11/24/2016 Overview: 11/24/2012Patient states she has noted dysuria on and off for several weeks. She denies any dysuria for the past 3 days. Urine culture ordered by Dr. Nails. Pelvic pain in 11/24/2012 017 Overview: 11/22/2012Patient was seen at [facility] [place] on November 22 for pelvic pain in . An ultrasound was done on that date that revealed an intrauterine with moderate subchorionic hemorrhage inferior to the gestational sac. Second area of an anechoic avascular changes right lateral to the gestational sac may be a blighted twin gestation versus subchorionic hemorrhage. Estimated gestational age at 7 weeks 6 days.Patient states that she has been noticing the pain occurring less often since she was seen at the hospital. She denies any bleeding this . She denies any pelvic pain today. [facility] ultrasound sent to Dr. Beltre's office for review. Abdominal pain 09/20/2012 01/03/2013 Acute cholecystitis with chronic cholecystitis 0 09/20/2012 01/03/2013 documented as of this encounter (statuses as of 05/13/2022) [facility]09-26-2017 History of Past illness Narrative* Problem Noted Date Resolved Date Group B Streptococcus carrier, antepartum 201606/10/2017 Chest wall pain 08/12/2016 11/24/2016 High-risk supervision 05/04/2013 11/04/2016 Drug dependence complicating 3 06/10/2017 Overview: May 04, 2013 referred to steps for evaluation Abnormal finding on screen 02/27/2013 11/04/2016 Overview: Sequential screen risk increased from 1:4300 to 1:180 But screen negative overall since cutoff for positive is 1:100. Attempted to reach patient to review results and offer amniocentesis if desired, unable to reach, Will discuss at next visit if still unable to reach. SM UTI in 11/28/2012 08/26/2016 Overview: 11/28/12 - rx given, needs ABA - KK Previous section 11/24/20122016 Overview: 11/24/2012Pt had two previous C sections, one in [place] and the other at [facility]. She desires a repeat C section by Dr. Mercedes Beltre .Patient signed a release of records form to obtain her previous report from [facility]. Exposure to parvovirus 11/24/2012 7 Overview: 11/24/2012Patient states she was exposed to parvovirus, see linked telephone note from November 14. Patient had a negative parvovirus IgG and IgM on November 14. Repeat labs in [address] Vallejo. January 03, 2013 RR- recheck today Dysuria in 11/24/2012 11/24/2016 Overview: 11/24/2012Patient states she has noted dysuria on and off for several weeks. She denies any dysuria for the past 3 days. Urine culture ordered by Dr. Nails. Pelvic pain in 11/24/2012 017 Overview: 11/22/2012Patient was seen at [facility] [place] on November 22 for pelvic pain in . An ultrasound was done on that date that revealed an intrauterine with moderate subchorionic hemorrhage inferior to the gestational sac. Second area of an anechoic avascular changes right lateral to the gestational sac may be a blighted twin gestation versus subchorionic hemorrhage. Estimated gestational age at 7 weeks 6 days.Patient states that she has been noticing the pain occurring less often since she was seen at the hospital. She denies any bleeding this . She denies any pelvic pain today. [facility] ultrasound sent to Dr. Beltre's office for review. Abdominal pain 09/20/2012 01/03/2013 Acute cholecystitis with chronic cholecystitis 0 09/20/2012 01/03/2013 documented as of this encounter (statuses as of 05/19/2022) [facility] History of Past illness Narrative* Problem Noted Date Resolved Date Group B Streptococcus carrier, antepartum 201606/10/2017 Chest wall pain 08/12/2016 11/24/2016 High-risk supervision 05/04/2013 11/04/2016 Drug dependence complicating 3 06/10/2017 Overview: May 04, 2013 referred to steps for evaluation Abnormal finding on screen 02/27/2013 11/04/2016 Overview: Sequential screen risk increased from 1:4300 to 1:180 But screen negative overall since cutoff for positive is 1:100. Attempted to reach patient to review results and offer amniocentesis if desired, unable to reach, Will discuss at next visit if still unable to reach. SM UTI in 11/28/2012 08/26/2016 Overview: 11/28/12 - rx given, needs ABA - KK Previous section 11/24/20122016 Overview: 11/24/2012Pt had two previous C sections, one in [place] and the other at [facility]. She desires a repeat C section by Dr. Mercedes Beltre .Patient signed a release of records form to obtain her previous report from [facility]. Exposure to parvovirus 11/24/2012 7 Overview: 11/24/2012Patient states she was exposed to parvovirus, see linked telephone note from November 14. Patient had a negative parvovirus IgG and IgM on November 14. Repeat labs in [address] Vallejo. January 03, 2013 RR- recheck today Dysuria in 11/24/2012 11/24/2016 Overview: 11/24/2012Patient states she has noted dysuria on and off for several weeks. She denies any dysuria for the past 3 days. Urine culture ordered by Dr. Naisl. Pelvic pain in 11/24/2012 017 Overview: 11/22/2012Patient was seen at [facility] [place] on November 22 for pelvic pain in . An ultrasound was done on that date that revealed an intrauterine with moderate subchorionic hemorrhage inferior to the gestational sac. Second area of an anechoic avascular changes right lateral to the gestational sac may be a blighted twin gestation versus subchorionic hemorrhage. Estimated gestational age at 7 weeks 6 days.Patient states that she has been noticing the pain occurring less often since she was seen at the hospital. She denies any bleeding this . She denies any pelvic pain today. [facility] ultrasound sent to Dr. Beltre's office for review. Abdominal pain 09/20/2012 01/03/2013 Acute cholecystitis with chronic cholecystitis 0 09/20/2012 01/03/2013 documented as of this encounter (statuses as of 06/17/2022) [facility] History of Past illness Narrative* Problem Noted Date Resolved Date Group B Streptococcus carrier, antepartum 201606/10/2017 Chest wall pain 08/12/2016 11/24/2016 High-risk supervision 05/04/2013 11/04/2016 Drug dependence complicating 3 06/10/2017 Overview: May 04, 2013 referred to steps for evaluation Abnormal finding on screen 02/27/2013 11/04/2016 Overview: Sequential screen risk increased from 1:4300 to 1:180 But screen negative overall since cutoff for positive is 1:100. Attempted to reach patient to review results and offer amniocentesis if desired, unable to reach, Will discuss at next visit if still unable to reach. SM UTI in 11/28/2012 08/26/2016 Overview: 11/28/12 - rx given, needs ABA - KK Previous section 11/24/20122016 Overview: 11/24/2012Pt had two previous C sections, one in [place] and the other at [facility]. She desires a repeat C section by Dr. Mercedes Beltre .Patient signed a release of records form to obtain her previous report from [facility]. Exposure to parvovirus 11/24/2012 7 Overview: 11/24/2012Patient states she was exposed to parvovirus, see linked telephone note from November 14. Patient had a negative parvovirus IgG and IgM on November 14. Repeat labs in [address] Vallejo. January 03, 2013 RR- recheck today Dysuria in 11/24/2012 11/24/2016 Overview: 11/24/2012Patient states she has noted dysuria on and off for several weeks. She denies any dysuria for the past 3 days. Urine culture ordered by Dr. Nails. Pelvic pain in 11/24/2012 017 Overview: 11/22/2012Patient was seen at [facility] [place] on November 22 for pelvic pain in . An ultrasound was done on that date that revealed an intrauterine with moderate subchorionic hemorrhage inferior to the gestational sac. Second area of an anechoic avascular changes right lateral to the gestational sac may be a blighted twin gestation versus subchorionic hemorrhage. Estimated gestational age at 7 weeks 6 days.Patient states that she has been noticing the pain occurring less often since she was seen at the hospital. She denies any bleeding this . She denies any pelvic pain today. [facility] ultrasound sent to Dr. Beltre's office for review. Abdominal pain 09/20/2012 01/03/2013 Acute cholecystitis with chronic cholecystitis 0 09/20/2012 01/03/2013 documented as of this encounter (statuses as of 06/21/2022) [facility] History of Past illness Narrative* Problem Noted Date Resolved Date Group B Streptococcus carrier, antepartum 201606/10/2017 Chest wall pain 08/12/2016 11/24/2016 High-risk supervision 05/04/2013 11/04/2016 Drug dependence complicating 3 06/10/2017 Overview: May 04, 2013 referred to steps for evaluation Abnormal finding on screen 02/27/2013 11/04/2016 Overview: Sequential screen risk increased from 1:4300 to 1:180 But screen negative overall since cutoff for positive is 1:100. Attempted to reach patient to review results and offer amniocentesis if desired, unable to reach, Will discuss at next visit if still unable to reach. SM UTI in 11/28/2012 08/26/2016 Overview: 11/28/12 - rx given, needs ABA - KK Previous section 11/24/20122016 Overview: 11/24/2012Pt had two previous C sections, one in [place] and the other at [facility]. She desires a repeat C section by Dr. Mercedes Beltre .Patient signed a release of records form to obtain her previous report from [facility]. Exposure to parvovirus 11/24/2012 7 Overview: 11/24/2012Patient states she was exposed to parvovirus, see linked telephone note from November 14. Patient had a negative parvovirus IgG and IgM on November 14. Repeat labs in [address] Vallejo. January 03, 2013 RR- recheck today Dysuria in 11/24/2012 11/24/2016 Overview: 11/24/2012Patient states she has noted dysuria on and off for several weeks. She denies any dysuria for the past 3 days. Urine culture ordered by Dr. Nails. Pelvic pain in 11/24/2012 017 Overview: 11/22/2012Patient was seen at [facility] [place] on November 22 for pelvic pain in . An ultrasound was done on that date that revealed an intrauterine with moderate subchorionic hemorrhage inferior to the gestational sac. Second area of an anechoic avascular changes right lateral to the gestational sac may be a blighted twin gestation versus subchorionic hemorrhage. Estimated gestational age at 7 weeks 6 days.Patient states that she has been noticing the pain occurring less often since she was seen at the hospital. She denies any bleeding this . She denies any pelvic pain today. [facility] ultrasound sent to Dr. Beltre's office for review. Abdominal pain 09/20/2012 01/03/2013 Acute cholecystitis with chronic cholecystitis 0 09/20/2012 01/03/2013 documented as of this encounter (statuses as of 08/22/2022) [facility] History of Past illness Narrative* Problem Noted Date Resolved Date Group B Streptococcus carrier, antepartum 201606/10/2017 Chest wall pain 08/12/2016 11/24/2016 High-risk supervision 05/04/2013 11/04/2016 Drug dependence complicating 3 06/10/2017 Overview: May 04, 2013 referred to steps for evaluation Abnormal finding on screen 02/27/2013 11/04/2016 Overview: Sequential screen risk increased from 1:4300 to 1:180 But screen negative overall since cutoff for positive is 1:100. Attempted to reach patient to review results and offer amniocentesis if desired, unable to reach, Will discuss at next visit if still unable to reach. SM UTI in 11/28/2012 08/26/2016 Overview: 11/28/12 - rx given, needs ABA - KK Previous section 11/24/20122016 Overview: 11/24/2012Pt had two previous C sections, one in [place] and the other at [facility]. She desires a repeat C section by Dr. Mercedes Beltre .Patient signed a release of records form to obtain her previous report from [facility]. Exposure to parvovirus 11/24/2012 7 Overview: 11/24/2012Patient states she was exposed to parvovirus, see linked telephone note from November 14. Patient had a negative parvovirus IgG and IgM on November 14. Repeat labs in [address] Vallejo. January 03, 2013 RR- recheck today Dysuria in 11/24/2012 11/24/2016 Overview: 11/24/2012Patient states she has noted dysuria on and off for several weeks. She denies any dysuria for the past 3 days. Urine culture ordered by Dr. Nails. Pelvic pain in 11/24/2012 017 Overview: 11/22/2012Patient was seen at [facility] [place] on November 22 for pelvic pain in . An ultrasound was done on that date that revealed an intrauterine with moderate subchorionic hemorrhage inferior to the gestational sac. Second area of an anechoic avascular changes right lateral to the gestational sac may be a blighted twin gestation versus subchorionic hemorrhage. Estimated gestational age at 7 weeks 6 days.Patient states that she has been noticing the pain occurring less often since she was seen at the hospital. She denies any bleeding this . She denies any pelvic pain today. [facility] ultrasound sent to Dr. Beltre's office for review. Abdominal pain 09/20/2012 01/03/2013 Acute cholecystitis with chronic cholecystitis 0 09/20/2012 01/03/2013 documented as of this encounter (statuses as of 08/28/2022) [facility] History of Past illness Narrative* Problem Noted Date Resolved Date Group B Streptococcus carrier, antepartum 201606/10/2017 Chest wall pain 08/12/2016 11/24/2016 High-risk supervision 05/04/2013 11/04/2016 Drug dependence complicating 3 06/10/2017 Overview: May 04, 2013 referred to steps for evaluation Abnormal finding on screen 02/27/2013 11/04/2016 Overview: Sequential screen risk increased from 1:4300 to 1:180 But screen negative overall since cutoff for positive is 1:100. Attempted to reach patient to review results and offer amniocentesis if desired, unable to reach, Will discuss at next visit if still unable to reach. SM UTI in 11/28/2012 08/26/2016 Overview: 11/28/12 - rx given, needs ABA - KK Previous section 11/24/20122016 Overview: 11/24/2012Pt had two previous C sections, one in [place] and the other at [facility]. She desires a repeat C section by Dr. Mercedes Beltre .Patient signed a release of records form to obtain her previous report from [facility]. Exposure to parvovirus 11/24/2012 7 Overview: 11/24/2012Patient states she was exposed to parvovirus, see linked telephone note from November 14. Patient had a negative parvovirus IgG and IgM on November 14. Repeat labs in [address] Vallejo. January 03, 2013 RR- recheck today Dysuria in 11/24/2012 11/24/2016 Overview: 11/24/2012Patient states she has noted dysuria on and off for several weeks. She denies any dysuria for the past 3 days. Urine culture ordered by Dr. Nails. Pelvic pain in 11/24/2012 017 Overview: 11/22/2012Patient was seen at [facility] [place] on November 22 for pelvic pain in . An ultrasound was done on that date that revealed an intrauterine with moderate subchorionic hemorrhage inferior to the gestational sac. Second area of an anechoic avascular changes right lateral to the gestational sac may be a blighted twin gestation versus subchorionic hemorrhage. Estimated gestational age at 7 weeks 6 days.Patient states that she has been noticing the pain occurring less often since she was seen at the hospital. She denies any bleeding this . She denies any pelvic pain today. [facility] ultrasound sent to Dr. Beltre's office for review. Abdominal pain 09/20/2012 01/03/2013 Acute cholecystitis with chronic cholecystitis 0 09/20/2012 01/03/2013 documented as of this encounter (statuses as of 08/31/2022) [facility] History of Past illness Narrative* Problem Noted Date Resolved Date Group B Streptococcus carrier, antepartum 201606/10/2017 Chest wall pain 08/12/2016 11/24/2016 High-risk supervision 05/04/2013 11/04/2016 Drug dependence complicating 3 06/10/2017 Overview: May 04, 2013 referred to steps for evaluation Abnormal finding on screen 02/27/2013 11/04/2016 Overview: Sequential screen risk increased from 1:4300 to 1:180 But screen negative overall since cutoff for positive is 1:100. Attempted to reach patient to review results and offer amniocentesis if desired, unable to reach, Will discuss at next visit if still unable to reach. SM UTI in 11/28/2012 08/26/2016 Overview: 11/28/12 - rx given, needs ABA - KK Previous section 11/24/20122016 Overview: 11/24/2012Pt had two previous C sections, one in [place] and the other at [facility]. She desires a repeat C section by Dr. Mercedes Beltre .Patient signed a release of records form to obtain her previous report from [facility]. Exposure to parvovirus 11/24/2012 7 Overview: 11/24/2012Patient states she was exposed to parvovirus, see linked telephone note from November 14. Patient had a negative parvovirus IgG and IgM on November 14. Repeat labs in [address] Vallejo. January 03, 2013 RR- recheck today Dysuria in 11/24/2012 11/24/2016 Overview: 11/24/2012Patient states she has noted dysuria on and off for several weeks. She denies any dysuria for the past 3 days. Urine culture ordered by Dr. Nails. Pelvic pain in 11/24/2012 017 Overview: 11/22/2012Patient was seen at [facility] [place] on November 22 for pelvic pain in . An ultrasound was done on that date that revealed an intrauterine with moderate subchorionic hemorrhage inferior to the gestational sac. Second area of an anechoic avascular changes right lateral to the gestational sac may be a blighted twin gestation versus subchorionic hemorrhage. Estimated gestational age at 7 weeks 6 days.Patient states that she has been noticing the pain occurring less often since she was seen at the hospital. She denies any bleeding this . She denies any pelvic pain today. [facility] ultrasound sent to Dr. Beltre's office for review. Abdominal pain 09/20/2012 01/03/2013 Acute cholecystitis with chronic cholecystitis 0 09/20/2012 01/03/2013 documented as of this encounter (statuses as of 08/31/2022) [facility] History of Past illness Narrative* Problem Noted Date Resolved Date Group B Streptococcus carrier, antepartum 201606/10/2017 Chest wall pain 08/12/2016 11/24/2016 High-risk supervision 05/04/2013 11/04/2016 Drug dependence complicating 3 06/10/2017 Overview: May 04, 2013 referred to steps for evaluation Abnormal finding on screen 02/27/2013 11/04/2016 Overview: Sequential screen risk increased from 1:4300 to 1:180 But screen negative overall since cutoff for positive is 1:100. Attempted to reach patient to review results and offer amniocentesis if desired, unable to reach, Will discuss at next visit if still unable to reach. SM UTI in 11/28/2012 08/26/2016 Overview: 11/28/12 - rx given, needs ABA - KK Previous section 11/24/20122016 Overview: 11/24/2012Pt had two previous C sections, one in [place] and the other at [facility]. She desires a repeat C section by Dr. Mercedes Beltre .Patient signed a release of records form to obtain her previous report from [facility]. Exposure to parvovirus 11/24/2012 7 Overview: 11/24/2012Patient states she was exposed to parvovirus, see linked telephone note from November 14. Patient had a negative parvovirus IgG and IgM on November 14. Repeat labs in [address] Vallejo. January 03, 2013 RR- recheck today Dysuria in 11/24/2012 11/24/2016 Overview: 11/24/2012Patient states she has noted dysuria on and off for several weeks. She denies any dysuria for the past 3 days. Urine culture ordered by Dr. Nails. Pelvic pain in 11/24/2012 017 Overview: 11/22/2012Patient was seen at [facility] [place] on November 22 for pelvic pain in . An ultrasound was done on that date that revealed an intrauterine with moderate subchorionic hemorrhage inferior to the gestational sac. Second area of an anechoic avascular changes right lateral to the gestational sac may be a blighted twin gestation versus subchorionic hemorrhage. Estimated gestational age at 7 weeks 6 days.Patient states that she has been noticing the pain occurring less often since she was seen at the hospital. She denies any bleeding this . She denies any pelvic pain today. [facility] ultrasound sent to Dr. Beltre's office for review. Abdominal pain 09/20/2012 01/03/2013 Acute cholecystitis with chronic cholecystitis 0 09/20/2012 01/03/2013 documented as of this encounter (statuses as of 09/01/2022) [facility] History of Past illness Narrative* Problem Noted Date Resolved Date Group B Streptococcus carrier, antepartum 201606/10/2017 Chest wall pain 08/12/2016 11/24/2016 High-risk supervision 05/04/2013 11/04/2016 Drug dependence complicating 3 06/10/2017 Overview: May 04, 2013 referred to steps for evaluation Abnormal finding on screen 02/27/2013 11/04/2016 Overview: Sequential screen risk increased from 1:4300 to 1:180 But screen negative overall since cutoff for positive is 1:100. Attempted to reach patient to review results and offer amniocentesis if desired, unable to reach, Will discuss at next visit if still unable to reach. SM UTI in 11/28/2012 08/26/2016 Overview: 11/28/12 - rx given, needs ABA - KK Previous section 11/24/20122016 Overview: 11/24/2012Pt had two previous C sections, one in [place] and the other at [facility]. She desires a repeat C section by Dr. Mercedes Beltre .Patient signed a release of records form to obtain her previous report from [facility]. Exposure to parvovirus 11/24/2012 7 Overview: 11/24/2012Patient states she was exposed to parvovirus, see linked telephone note from November 14. Patient had a negative parvovirus IgG and IgM on November 14. Repeat labs in [address] Vallejo. January 03, 2013 RR- recheck today Dysuria in 11/24/2012 11/24/2016 Overview: 11/24/2012Patient states she has noted dysuria on and off for several weeks. She denies any dysuria for the past 3 days. Urine culture ordered by Dr. Nails. Pelvic pain in 11/24/2012 017 Overview: 11/22/2012Patient was seen at [facility] [place] on November 22 for pelvic pain in . An ultrasound was done on that date that revealed an intrauterine with moderate subchorionic hemorrhage inferior to the gestational sac. Second area of an anechoic avascular changes right lateral to the gestational sac may be a blighted twin gestation versus subchorionic hemorrhage. Estimated gestational age at 7 weeks 6 days.Patient states that she has been noticing the pain occurring less often since she was seen at the hospital. She denies any bleeding this . She denies any pelvic pain today. [facility] ultrasound sent to Dr. Beltre's office for review. Abdominal pain 09/20/2012 01/03/2013 Acute cholecystitis with chronic cholecystitis 0 09/20/2012 01/03/2013 documented as of this encounter (statuses as of 09/07/2022) [facility] History of Past illness Narrative* Problem Noted Date Resolved Date Group B Streptococcus carrier, antepartum 201606/10/2017 Chest wall pain 08/12/2016 11/24/2016 High-risk supervision 05/04/2013 11/04/2016 Drug dependence complicating 3 06/10/2017 Overview: May 04, 2013 referred to steps for evaluation Abnormal finding on screen 02/27/2013 11/04/2016 Overview: Sequential screen risk increased from 1:4300 to 1:180 But screen negative overall since cutoff for positive is 1:100. Attempted to reach patient to review results and offer amniocentesis if desired, unable to reach, Will discuss at next visit if still unable to reach. SM UTI in 11/28/2012 08/26/2016 Overview: 11/28/12 - rx given, needs ABA - KK Previous section 11/24/20122016 Overview: 11/24/2012Pt had two previous C sections, one in [place] and the other at [facility]. She desires a repeat C section by Dr. Mercedes Beltre .Patient signed a release of records form to obtain her previous report from [facility]. Exposure to parvovirus 11/24/2012 7 Overview: 11/24/2012Patient states she was exposed to parvovirus, see linked telephone note from November 14. Patient had a negative parvovirus IgG and IgM on November 14. Repeat labs in [address] Vallejo. January 03, 2013 RR- recheck today Dysuria in 11/24/2012 11/24/2016 Overview: 11/24/2012Patient states she has noted dysuria on and off for several weeks. She denies any dysuria for the past 3 days. Urine culture ordered by Dr. Nails. Pelvic pain in 11/24/2012 017 Overview: 11/22/2012Patient was seen at [facility] [place] on November 22 for pelvic pain in . An ultrasound was done on that date that revealed an intrauterine with moderate subchorionic hemorrhage inferior to the gestational sac. Second area of an anechoic avascular changes right lateral to the gestational sac may be a blighted twin gestation versus subchorionic hemorrhage. Estimated gestational age at 7 weeks 6 days.Patient states that she has been noticing the pain occurring less often since she was seen at the hospital. She denies any bleeding this . She denies any pelvic pain today. [facility] ultrasound sent to Dr. Beltre's office for review. Abdominal pain 09/20/2012 01/03/2013 Acute cholecystitis with chronic cholecystitis 0 09/20/2012 01/03/2013 documented as of this encounter (statuses as of 09/08/2022) [facility] History of Past illness Narrative* Problem Noted Date Resolved Date Group B Streptococcus carrier, antepartum 201606/10/2017 Chest wall pain 08/12/2016 11/24/2016 High-risk supervision 05/04/2013 11/04/2016 Drug dependence complicating 3 06/10/2017 Overview: May 04, 2013 referred to steps for evaluation Abnormal finding on screen 02/27/2013 11/04/2016 Overview: Sequential screen risk increased from 1:4300 to 1:180 But screen negative overall since cutoff for positive is 1:100. Attempted to reach patient to review results and offer amniocentesis if desired, unable to reach, Will discuss at next visit if still unable to reach. SM UTI in 11/28/2012 08/26/2016 Overview: 11/28/12 - rx given, needs ABA - KK Previous section 11/24/20122016 Overview: 11/24/2012Pt had two previous C sections, one in [place] and the other at [facility]. She desires a repeat C section by Dr. Mercedes Beltre .Patient signed a release of records form to obtain her previous report from [facility]. Exposure to parvovirus 11/24/2012 7 Overview: 11/24/2012Patient states she was exposed to parvovirus, see linked telephone note from November 14. Patient had a negative parvovirus IgG and IgM on November 14. Repeat labs in [address] Vallejo. January 03, 2013 RR- recheck today Dysuria in 11/24/2012 11/24/2016 Overview: 11/24/2012Patient states she has noted dysuria on and off for several weeks. She denies any dysuria for the past 3 days. Urine culture ordered by Dr. Nails. Pelvic pain in 11/24/2012 017 Overview: 11/22/2012Patient was seen at [facility] on November 22 for pelvic pain in . An ultrasound was done on that date that revealed an intrauterine with moderate subchorionic hemorrhage inferior to the gestational sac. Second area of an anechoic avascular changes right lateral to the gestational sac may be a blighted twin gestation versus subchorionic hemorrhage. Estimated gestational age at 7 weeks 6 days.Patient states that she has been noticing the pain occurring less often since she was seen at the hospital. She denies any bleeding this . She denies any pelvic pain today. [facility] ultrasound sent to Dr. Beltre's office for review. Abdominal pain 09/20/2012 01/03/2013 Acute cholecystitis with chronic cholecystitis 0 09/20/2012 01/03/2013 documented as of this encounter (statuses as of 09/08/2022) [facility] History of Past illness Narrative* Problem Noted Date Resolved Date Group B Streptococcus carrier, antepartum 201606/10/2017 Chest wall pain 08/12/2016 11/24/2016 High-risk supervision 05/04/2013 11/04/2016 Drug dependence complicating 3 06/10/2017 Overview: May 04, 2013 referred to steps for evaluation Abnormal finding on screen 02/27/2013 11/04/2016 Overview: Sequential screen risk increased from 1:4300 to 1:180 But screen negative overall since cutoff for positive is 1:100. Attempted to reach patient to review results and offer amniocentesis if desired, unable to reach, Will discuss at next visit if still unable to reach. SM UTI in 11/28/2012 08/26/2016 Overview: 11/28/12 - rx given, needs ABA - KK Previous section 11/24/20122016 Overview: 11/24/2012Pt had two previous C sections, one in [place] and the other at [facility]. She desires a repeat C section by Dr. Mercedes Beltre .Patient signed a release of records form to obtain her previous report from [facility]. Exposure to parvovirus 11/24/2012 7 Overview: 11/24/2012Patient states she was exposed to parvovirus, see linked telephone note from November 14. Patient had a negative parvovirus IgG and IgM on November 14. Repeat labs in [address] Vallejo. January 03, 2013 RR- recheck today Dysuria in 11/24/2012 11/24/2016 Overview: 11/24/2012Patient states she has noted dysuria on and off for several weeks. She denies any dysuria for the past 3 days. Urine culture ordered by Dr. Nails. Pelvic pain in 11/24/2012 017 Overview: 11/22/2012Patient was seen at [facility] on November 22 for pelvic pain in . An ultrasound was done on that date that revealed an intrauterine with moderate subchorionic hemorrhage inferior to the gestational sac. Second area of an anechoic avascular changes right lateral to the gestational sac may be a blighted twin gestation versus subchorionic hemorrhage. Estimated gestational age at 7 weeks 6 days.Patient states that she has been noticing the pain occurring less often since she was seen at the hospital. She denies any bleeding this . She denies any pelvic pain today. [facility] ultrasound sent to Dr. Beltre's office for review. Abdominal pain 09/20/2012 01/03/2013 Acute cholecystitis with chronic cholecystitis 0 09/20/2012 01/03/2013 documented as of this encounter (statuses as of 09/09/2022) [facility] Cat scratch- Primary Other and unspecified superficial injury of other, multiple, and unspecified sites, without mention of infection Muscle strain Unspecified site of sprain and strain Headache, unspecified headache type [facility] Headache, unspecified headache type- Primary Neck pain Cervicalgia Right wrist pain Pain in joint, forearm [facility] Diagnosis Headache, unspecified headache type- Primary Acute swimmer's ear of left side [facility] Diagnosis Viral illness- Primary Unspecified viral infection, in conditions classified elsewhere and of unspecified site [facility]* Diagnosis Suspected COVID-19 virus infection- Primary Acute otitis media, right Unspecified otitis media [facility]* Diagnosis Otitis media, recurrent, right- Primary Vaginal discharge Leukorrhea, not specified as infective [facility]* Diagnosis Middle ear effusion, right- Primary Acute otitis externa of right ear, unspecified type [facility]* Diagnosis Deep dyspareunia- Primary Pelvic pain in female Unspecified symptom associated with female genital organs Cystocele, midline [facility] Diagnosis Deep dyspareunia- Primary Pelvic pain in female Unspecified symptom associated with female genital organs [facility]* Diagnosis Encounter for IUD insertion- Primary Encounter for insertion of intrauterine contraceptive device [facility]* Diagnosis Encounter for routine checking of intrauterine contraceptive device (IUD)- Primary [facility] Diagnosis Acute otitis externa of left ear, unspecified type- Primary Impacted cerumen of left ear Impacted cerumen [facility] Diagnosis Flu-like symptoms- Primary Other general symptoms documented in this encounter [facility] note* Diagnosis Fatigue, unspecified type- Primary PTSD (post-traumatic stress disorder) Posttraumatic stress disorder Viral syndrome Unspecified viral infection, in conditions classified elsewhere and of unspecified site [facility]* Diagnosis Pelvic pain in female- Primary Unspecified symptom associated with female genital organs documented in this encounter [facility] note* Diagnosis Pelvic pain in female Unspecified symptom associated with female genital organs [facility] [place]* Diagnosis Pelvic pain in female- Primary Unspecified symptom associated with female genital organs Encounter for IUD removal Encounter for removal of intrauterine contraceptive device documented in this encounter [facility] note* Diagnosis Encounter for IUD removal- Primary Encounter for removal of intrauterine contraceptive device [facility]* Diagnosis Vaginal irritation- Primary Unspecified noninflammatory disorder of vagina documented in this encounter [facility] note* Diagnosis Mixed obsessional thoughts and acts- Primary PTSD (post-traumatic stress disorder) Posttraumatic stress disorder Borderline personality disorder (HCC) Borderline personality disorder documented [facility] this encounter [facility] [place]* Diagnosis Sore throat- Primary Acute pharyngitis [facility] [place] [facility]* Diagnosis URI, acute- Primary Acute upper respiratory infections of unspecified site Sore throat Acute pharyngitis documented [facility] this encounter [facility] [place]* Diagnosis Sore throat- Primary Acute pharyngitis Viral illness Unspecified viral infection, in conditions classified elsewhere and of unspecified site documented [facility]* Diagnosis Mixed obsessional thoughts and acts- Primary PTSD (post-traumatic stress disorder) Posttraumatic stress disorder Borderline personality disorder (HCC) Borderline personality disorder [facility] [place]* Diagnosis Acute cough- Primary Orthostatic lightheadedness Dizziness and giddiness Sinobronchitis Unspecified sinusitis (chronic) documented in this encounter [facility] [place] [facility]* Diagnosis Pain- Primary Generalized pain [facility] [place] [facility]* Diagnosis Headaches, migraine- Primary Nausea Nausea alone Viral illness Unspecified viral infection, in conditions classified elsewhere and of unspecified site documented in this encounter [facility] note* Diagnosis Mixed obsessional thoughts and acts- Primary PTSD (post-traumatic stress disorder) Posttraumatic stress disorder Borderline personality disorder (HCC) Borderline personality disorder documented [facility] this encounter [facility] [place]* Diagnosis Pelvic pain in female- Primary Unspecified symptom associated with female genital organs Menorrhagia with regular cycle Excessive or frequent menstruation Vaginal discharge Leukorrhea, not specified as infective Stress incontinence Female stress incontinence Cystocele, midline documented in this encounter [facility] note* Diagnosis Excessive or frequent menstruation- Primary documented in this encounter [facility] note* Diagnosis Mixed obsessional thoughts and acts- Primary PTSD (post-traumatic stress disorder) Posttraumatic stress disorder Borderline personality disorder (HCC) Borderline personality disorder Marijuana use Cannabis abuse, unspecified Nicotine use [facility]* Diagnosis Excessive or frequent menstruation- Primary Pelvic pain in female Unspecified symptom associated with female genital organs documented in this encounter [facility] note* Diagnosis Mixed obsessional thoughts and acts- Primary PTSD (post-traumatic stress disorder) Posttraumatic stress disorder Borderline personality disorder (HCC) Borderline personality disorder documented in this encounter [facility] note* Diagnosis Mixed obsessional thoughts and acts- Primary PTSD (post-traumatic stress disorder) Posttraumatic stress disorder Borderline personality disorder (HCC) Borderline personality disorder Marijuana use Cannabis abuse, unspecified Nicotine use documented in this encounter [facility] note* Diagnosis Mixed obsessional thoughts and acts- Primary PTSD (post-traumatic stress disorder) Posttraumatic stress disorder Borderline personality disorder (HCC) Borderline personality disorder documented in this encounter [facility] for referral (narrative)* Diagnostic Procedure Only (Routine) - Closed Specialty Diagnoses / Procedures Referred By Barrie ibarra Referred To Contact XR IMAGING Diagnoses Right wrist pain Procedures XR WRIST GENERAL 3V PA/LAT/OBL RIGHT RADEX WRIST COMPLETE MINIMUM 3 VIEWS Azar Smith MD [address] [place] [address] Xr Imaging Referral ID Status Reason Start Date Expiration Date V isits Requested Visits Authorized [id number] Closed Auto-Generate d Referral 01/02/2022 02/01/2023 1 1 [facility] for referral (narrative)* Outpatient Procedure (Routine) - Pending Review Specialty Diagnoses / Procedures Referred By Contac t Referred To Contact [facility] Diagnoses Deep dyspareunia Pelvic pain in female Procedures INSERT INTRAUTERINE DEVICE LEVONORGESTREL IU 52MG 5 YR INSERT INTRAUTERINE DEVICE Annabelle Gonzalez APRN.BOROUGH COORDINATOR [address] [place] [address] [facility] [address] [place] [id number] Referral ID Status Reason Start Date Expiration Date Visits Requested Visits Authorized [id number] Pending Review Auto-Generat ed Referral 05/01/2022 05/01/2023 1 1 [facility] for referral (narrative)* Outpatient Procedure (Routine) - Pending Review Specialty Diagnoses / Procedures Referred By Contac t Referred To Contact [facility] Diagnoses Encounter for IUD insertion Procedures INSERT INTRAUTERINE DEVICE LEVONORGESTREL IU 52MG 5 YR INSERT INTRAUTERINE DEVICE Annabelle Gonzalez APRN.BOROUGH COORDINATOR [address] [place] [address] [facility] [address] [place] [id number] Referral ID Status Reason Start Date Expiration Date Visits Requested Visits Authorized [id number] Pending Review Auto-Generat ed Referral 05/13/2022 05/13/2023 1 1 [facility] for referral (narrative)* Diagnostic Procedure Only (Routine) - Closed Specialty Diagnoses / Procedures Referred By Contac t Referred To Contact [facility] Diagnoses Pelvic pain in female Procedures PELVIC US WHI US PELVIC NONOBSTETRIC REAL-TIME IMAGE COMPLETE Maegan Reed APRN.BOROUGH COORDINATOR [address] [place] [address] [facility] [address] [place] [address] Referral ID Status Reason Start Date Expiration Date V isits Requested Visits Authorized [id number] Closed Auto-Generate d Referral 09/07/2022 09/07/2023 1 1 [place] for referral (narrative)* Outpatient Procedure (Routine) - Pending Review Specialty Diagnoses / Procedures Referred By Barrie t Referred To Contact [facility] Diagnoses Encounter for IUD removal Procedures REMOVE INTRAUTERINE DEVICE REMOVE INTRAUTERINE DEVICE Maegan Reed APRN.CNP [address] [place] [address] [address] Referral ID Status Reason Start Date Expiration Date Visits Requested Visits Authorized [id number] Pending Review Auto-Generat ed Referral 09/11/2022 09/11/2023 1 1 [place] for referral (narrative)* Outpatient Procedure (Routine) - Authorized Specialty Diagnoses / Procedures Referred By Preetiac t Referred To Contact [facility] Diagnoses Menorrhagia with regular cycle Procedures ENDOMETRIAL BIOPSY ENDOMETRIAL BX W/WO ENDOCERVIX BX W/O DILAT SPX Annabelle Gonzalez APRN.BOROUGH COORDINATOR [address] [place] [address] [address] Referral ID Status Reason Start Date Expiration Date Visits Requested Visits Authorized [id number] Authorized Auto-Generat ed Referral 05/13/2023 05/12/2024 1 1 * Physical Therapy (Routine) - Pending Review Specialty Diagnoses / Procedures Referred By Contac t Referred To Contact [facility] Diagnoses Pelvic pain in female Stress incontinence Cystocele, midline Procedures CONSULT TO PHYSICAL THERAPY PHYSICAL THERAPY EVALUATION HIGH COMPLEX 45 MINS Annabelle Gonzalez APRN.CNP [address] [place] [address] [facility] [address] [place] [address] Referral ID Status Reason Start Date Expiration Date Visits Requested Visits Authorized [id number] Pending Review Auto-Generat ed Referral 05/13/2023 05/12/2024 1 1 [facility] for referral (narrative)* Outpatient Procedure (Routine) - Pending Review Specialty Diagnoses / Procedures Referred By Contac t Referred To Contact [facility] Diagnoses Excessive or frequent menstruation Procedures ENDOMETRIAL BIOPSY ENDOMETRIAL BX W/WO ENDOCERVIX BX W/O DILAT SPX Annabelle Gonzalez APRN.CNP [address] [place] [address] [facility] [address] [place] [address] Referral ID Status Reason Start Date Expiration Date Visits Requested Visits Authorized [id number] Pending Review Auto-Generat ed Referral 3 06/21/2024 1 1 [facility] for visit Narrative* Diagnostic Procedure Only (Routine) - Closed Specialty Diagnoses / Procedures Referred By Contac t Referred To Contact [facility] Diagnoses Pelvic pain in female Procedures PELVIC US WHI US PELVIC NONOBSTETRIC REAL-TIME IMAGE COMPLETE Maegan Reed APRN.BOROUGH COORDINATOR [address] [place] [address] 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 Advance Directive(s) 10/21/2020 7:48 PM Advance Directive(s) 10/20/2020 9:36 PM Advance Directive(s) 07/25/2020 11:54 AM Documents on File Type Date Recorded 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 Continuation of ketorolac (Toradol) beyond 5 days increases the risk of developing serious adverse events. Please verify the duration of therapy for ketorolac (Toradol)., If ordered PRN for pain, patient/guardian may elect to receive this medication for higher pain levels INSTEAD of the opioid, if preferred: Yes Given 02/21/2022 11:10 AM EDT 60 mg Buttocks, Right Inactive Administered Medications - up to 3 most recent administrations Medication Order MAR Action Action Date Dose Rate Site levonorgestrel 20 mcg/24 hours (7 yrs) 52 mg 1 Each intrauterine device (MIRENA) 1 Each, INTRAUTERINE, ONCE (UP TO 30 DAYS AMB), 1 dose, On Wed05/13/22 at 1100, Hazardous Potential Reproductive Risk Drug: Use appropriate PPE. Given 05/13/2022 10:57 AM EDT 1 Each Inactive Administered Medications - up to 3 most recent administrations Medication Order MAR Action Action Date Dose Rate Site cefTRIAXone 500 mg intramuscular injection (ROCEPHIN) 500 mg, INTRAMUSCULAR, ONCE, 1 dose, On Wed09/07/22 at 1100, Please document the antimicrobial indication: Empiric Given 09/07/2022 10:51 AM EST 500 mg Buttocks, Left Inactive Administered Medications - up to 3 most recent administrations Medication Order MAR Action Action Date Dose Rate Site keTORolac 60 mg injection (Toradol) 60 mg, INTRAMUSCULAR, ONCE, 1 dose, On 04/21/23 at 1230, Ketorolac (Toradol) is indicated for the short-term (up to 5 days) management of moderately severe acute pain. Continuation of ketorolac (Toradol) beyond 5 days increases the risk of developing serious adverse events. Please verify the duration of therapy for ketorolac (Toradol)., If ordered PRN for pain, patient/guardian may elect to receive this medication for higher pain levels INSTEAD of the opioid, if preferred: Yes Given 04/21/2023 12:13 PM EDT 60 mg Buttocks, Right ondansetron orally disintegrating 8 mg tab(s) (ZOFRAN ODT) 8 mg, ORAL, ONCE, 1 dose, On Wed04/21/23 at 1230, Place tablet on tongue and allow to dissolve; do not chew. Open packaging using dry hands; do not push tablet through packaging. Given 04/21/2023 12:14 PM EDT 8 mg Health Concerns Infection Onset Date Last Indicated Resolved Time COVID-19 Rule-Out 02/21/2022 02/21/2022 Infection Onset Date Last Indicated Resolved Time COVID-19 Rule-Out 02/21/2022 02/21/2022 02/22/2022 3:23 AM EDT Infection Onset Date Last Indicated Resolved Time COVID-19 Rule-Out 11/16/2022 11/16/2022 Infection Onset Date Last Indicated Resolved Time COVID-19 Rule-Out 04/21/2023 04/21/2023 Reason for Referral Specialty Diagnoses / Procedures Referred By Contac t Referred To Contact Ent - Otolaryngology Diagnoses Middle ear effusion, right Procedures CONSULT TO ENT OFFICE/OUTPATIENT [facility] 60-74 MINUTES Clare Araiza PA-C [address] [place] [address] Referral ID Status Reason Start Date Expiration Date Visits Requested Visits Authorized [id number] Authorized PCP Requested Referral 03/29/2022 03/29/2023 1 1 Specialty Diagnoses / Procedures Referred By Contac t Referred To Contact Orthopedics Diagnoses Pain Procedures CONSULT TO ORTHOPAEDICS OFFICE/OUTPATIENT [facility] MDM 60-74 MINUTES Rajan Smith APRN.BOROUGH COORDINATOR [address] [id number] Referral ID Status Reason Start Date Expiration Date Visits Requested Visits Authorized [id number] Authorized PCP Requested Referral 02/25/2023 02/25/2024 1 1 Specialty Diagnoses / Procedures Referred By Contac t Referred To Contact XR IMAGING Diagnoses Pain Procedures XR SHOULDER GENERAL 3V OR MORE AP/TRUE AP/OTHER LEFT RADEX SHOULDER COMPLETE MINIMUM 2 VIEWS Rajan Smith APRN.BOROUGH COORDINATOR [address] [facility] [place] [address] Xr Imaging Referral ID Status Reason Start Date Expiration Date V isits Requested Visits Authorized [id number] Closed Auto-Generate d Referral 02/25/2023 03/26/2024 1 1 Additional Source Comments INFORMATION SOURCE (unrecogn ized section and content) DATE CREATED AUTHOR AUTHOR'S ORGANIZ ATION 01/01/2021 [facility] [place] [facility] DATE CREATED AUTHOR AUTHOR'S ORGANIZ ATION 10/20/2022 [facility] DATE CREATED AUTHOR AUTHOR'S ORGANIZ ATION [facility] DATE CREATED AUTHOR AUTHOR'S ORGANIZ ATION 09/23/2023 [facility] DATE CREATED AUTHOR AUTHOR'S ORGANIZ ATION 09/30/2023 [facility] Source Comments (unrecognize d section and content) In the event this informatio n is protected by the Federal Confidentiality of Alcohol and Drug Abuse Patient Records regulations: The Federal rules restrict any use of the information to criminally investigate or prosecute any alcohol or drug abuse patient.[facility] the event this information is protected by the Federal Confidentiality of Alcohol and Drug Abuse Patient Records regulations: The Federal rules restrict any use of the information to criminally investigate or prosecute any alcohol or drug abuse patient.[facility] HospitalIn the event this information is protected by the Federal Confidentiality of Alcohol and Drug Abuse Patient Records regulations: The Federal rules restrict any use of the information to criminally investigate or prosecute any alcohol or drug abuse patient.[facility] HospitalIn the event this information is protected by the Federal Confidentiality of Alcohol and Drug Abuse Patient Records regulations: The Federal rules restrict any use of the information to criminally investigate or prosecute any alcohol or drug abuse patient.[facility] HospitalIn the event this information is protected by the Federal Confidentiality of Alcohol and Drug Abuse Patient Records regulations: The Federal rules restrict any use of the information to criminally investigate or prosecute any alcohol or drug abuse patient.[facility] HospitalIn the event this information is protected by the Federal Confidentiality of Alcohol and Drug Abuse Patient Records regulations: The Federal rules restrict any use of the information to criminally investigate or prosecute any alcohol or drug abuse patient.[facility] HospitalIn the event this information is protected by the Federal Confidentiality of Alcohol and Drug Abuse Patient Records regulations: The Federal rules restrict any use of the information to criminally investigate or prosecute any alcohol or drug abuse patient.[facility] HospitalIn the event this information is protected by the Federal Confidentiality of Alcohol and Drug Abuse Patient Records regulations: The Federal rules restrict any use of the information to criminally investigate or prosecute any alcohol or drug abuse patient.[facility] HospitalIn the event this information is protected by the Federal Confidentiality of Alcohol and Drug Abuse Patient Records regulations: The Federal rules restrict any use of the information to criminally investigate or prosecute any alcohol or drug abuse patient.[facility] HospitalIn the event this information is protected by the Federal Confidentiality of Alcohol and Drug Abuse Patient Records regulations: The Federal rules restrict any use of the information to criminally investigate or prosecute any alcohol or drug abuse patient.[facility] HospitalIn the event this information is protected by the Federal Confidentiality of Alcohol and Drug Abuse Patient Records regulations: The Federal rules restrict any use of the information to criminally investigate or prosecute any alcohol or drug abuse patient.[facility] HospitalIn the event this information is protected by the Federal Confidentiality of Alcohol and Drug Abuse Patient Records regulations: The Federal rules restrict any use of the information to criminally investigate or prosecute any alcohol or drug abuse patient.[facility] HospitalIn the event this information is protected by the Federal Confidentiality of Alcohol and Drug Abuse Patient Records regulations: The Federal rules restrict any use of the information to criminally investigate or prosecute any alcohol or drug abuse patient.[facility] HospitalIn the event this information is protected by the Federal Confidentiality of Alcohol and Drug Abuse Patient Records regulations: The Federal rules restrict any use of the information to criminally investigate or prosecute any alcohol or drug abuse patient.[facility] HospitalIn the event this information is protected by the Federal Confidentiality of Alcohol and Drug Abuse Patient Records regulations: The Federal rules restrict any use of the information to criminally investigate or prosecute any alcohol or drug abuse patient.[facility] HospitalIn the event this information is protected by the Federal Confidentiality of Alcohol and Drug Abuse Patient Records regulations: The Federal rules restrict any use of the information to criminally investigate or prosecute any alcohol or drug abuse patient.[facility] HospitalIn the event this information is protected by the Federal Confidentiality of Alcohol and Drug Abuse Patient Records regulations: The Federal rules restrict any use of the information to criminally investigate or prosecute any alcohol or drug abuse patient.[facility] HospitalIn the event this information is protected by the Federal Confidentiality of Alcohol and Drug Abuse Patient Records regulations: The Federal rules restrict any use of the information to criminally investigate or prosecute any alcohol or drug abuse patient.[facility] HospitalIn the event this information is protected by the Federal Confidentiality of Alcohol and Drug Abuse Patient Records regulations: The Federal rules restrict any use of the information to criminally investigate or prosecute any alcohol or drug abuse patient.[facility] HospitalIn the event this information is protected by the Federal Confidentiality of Alcohol and Drug Abuse Patient Records regulations: The Federal rules restrict any use of the information to criminally investigate or prosecute any alcohol or drug abuse patient.[facility] HospitalIn the event this information is protected by the Federal Confidentiality of Alcohol and Drug Abuse Patient Records regulations: The Federal rules restrict any use of the information to criminally investigate or prosecute any alcohol or drug abuse patient.[facility] HospitalIn the event this information is protected by the Federal Confidentiality of Alcohol and Drug Abuse Patient Records regulations: The Federal rules restrict any use of the information to criminally investigate or prosecute any alcohol or drug abuse patient.[facility] HospitalIn the event this information is protected by the Federal Confidentiality of Alcohol and Drug Abuse Patient Records regulations: The Federal rules restrict any use of the information to criminally investigate or prosecute any alcohol or drug abuse patient.[facility] HospitalIn the event this information is protected by the Federal Confidentiality of Alcohol and Drug Abuse Patient Records regulations: The Federal rules restrict any use of the information to criminally investigate or prosecute any alcohol or drug abuse patient.[facility] HospitalIn the event this information is protected by the Federal Confidentiality of Alcohol and Drug Abuse Patient Records regulations: The Federal rules restrict any use of the information to criminally investigate or prosecute any alcohol or drug abuse patient.[facility] HospitalIn the event this information is protected by the Federal Confidentiality of Alcohol and Drug Abuse Patient Records regulations: The Federal rules restrict any use of the information to criminally investigate or prosecute any alcohol or drug abuse patient.[facility] HospitalIn the event this information is protected by the Federal Confidentiality of Alcohol and Drug Abuse Patient Records regulations: The Federal rules restrict any use of the information to criminally investigate or prosecute any alcohol or drug abuse patient.[facility] HospitalIn the event this information is protected by the Federal Confidentiality of Alcohol and Drug Abuse Patient Records regulations: The Federal rules restrict any use of the information to criminally investigate or prosecute any alcohol or drug abuse patient.[facility] HospitalIn the event this information is protected by the Federal Confidentiality of Alcohol and Drug Abuse Patient Records regulations: The Federal rules restrict any use of the information to criminally investigate or prosecute any alcohol or drug abuse patient.[facility] HospitalIn the event this information is protected by the Federal Confidentiality of Alcohol and Drug Abuse Patient Records regulations: The Federal rules restrict any use of the information to criminally investigate or prosecute any alcohol or drug abuse patient.[facility] HospitalIn the event this information is protected by the Federal Confidentiality of Alcohol and Drug Abuse Patient Records regulations: The Federal rules restrict any use of the information to criminally investigate or prosecute any alcohol or drug abuse patient.[facility] HospitalIn the event this information is protected by the Federal Confidentiality of Alcohol and Drug Abuse Patient Records regulations: The Federal rules restrict any use of the information to criminally investigate or prosecute any alcohol or drug abuse patient.[facility] HospitalIn the event this information is protected by the Federal Confidentiality of Alcohol and Drug Abuse Patient Records regulations: The Federal rules restrict any use of the information to criminally investigate or prosecute any alcohol or drug abuse patient.[facility] HospitalIn the event this information is protected by the Federal Confidentiality of Alcohol and Drug Abuse Patient Records regulations: The Federal rules restrict any use of the information to criminally investigate or prosecute any alcohol or drug abuse patient.[facility] HospitalIn the event this information is protected by the Federal Confidentiality of Alcohol and Drug Abuse Patient Records regulations: The Federal rules restrict any use of the information to criminally investigate or prosecute any alcohol or drug abuse patient.[facility] HospitalIn the event this information is protected by the Federal Confidentiality of Alcohol and Drug Abuse Patient Records regulations: The Federal rules restrict any use of the information to criminally investigate or prosecute any alcohol or drug abuse patient.[facility] HospitalIn the event this information is protected by the Federal Confidentiality of Alcohol and Drug Abuse Patient Records regulations: The Federal rules restrict any use of the information to criminally investigate or prosecute any alcohol or drug abuse patient.[facility] HospitalIn the event this information is protected by the Federal Confidentiality of Alcohol and Drug Abuse Patient Records regulations: The Federal rules restrict any use of the information to criminally investigate or prosecute any alcohol or drug abuse patient.[facility] HospitalIn the event this information is protected by the Federal Confidentiality of Alcohol and Drug Abuse Patient Records regulations: The Federal rules restrict any use of the information to criminally investigate or prosecute any alcohol or drug abuse patient.[facility] HospitalIn the event this information is protected by the Federal Confidentiality of Alcohol and Drug Abuse Patient Records regulations: The Federal rules restrict any use of the information to criminally investigate or prosecute any alcohol or drug abuse patient.[facility] HospitalIn the event this information is protected by the Federal Confidentiality of Alcohol and Drug Abuse Patient Records regulations: The Federal rules restrict any use of the information to criminally investigate or prosecute any alcohol or drug abuse patient.[facility] HospitalIn the event this information is protected by the Federal Confidentiality of Alcohol and Drug Abuse Patient Records regulations: The Federal rules restrict any use of the information to criminally investigate or prosecute any alcohol or drug abuse patient.[facility] HospitalIn the event this information is protected by the Federal Confidentiality of Alcohol and Drug Abuse Patient Records regulations: The Federal rules restrict any use of the information to criminally investigate or prosecute any alcohol or drug abuse patient.[facility] HospitalIn the event this information is protected by the Federal Confidentiality of Alcohol and Drug Abuse Patient Records regulations: The Federal rules restrict any use of the information to criminally investigate or prosecute any alcohol or drug abuse patient.[facility] HospitalIn the event this information is protected by the Federal Confidentiality of Alcohol and Drug Abuse Patient Records regulations: The Federal rules restrict any use of the information to criminally investigate or prosecute any alcohol or drug abuse patient.[facility] HospitalIn the event this information is protected by the Federal Confidentiality of Alcohol and Drug Abuse Patient Records regulations: The Federal rules restrict any use of the information to criminally investigate or prosecute any alcohol or drug abuse patient.[facility] HospitalIn the event this information is protected by the Federal Confidentiality of Alcohol and Drug Abuse Patient Records regulations: The Federal rules restrict any use of the information to criminally investigate or prosecute any alcohol or drug abuse patient.[facility] HospitalIn the event this information is protected by the Federal Confidentiality of Alcohol and Drug Abuse Patient Records regulations: The Federal rules restrict any use of the information to criminally investigate or prosecute any alcohol or drug abuse patient.[facility] HospitalIn the event this information is protected by the Federal Confidentiality of Alcohol and Drug Abuse Patient Records regulations: The Federal rules restrict any use of the information to criminally investigate or prosecute any alcohol or drug abuse patient.[facility] HospitalIn the event this information is protected by the Federal Confidentiality of Alcohol and Drug Abuse Patient Records regulations: The Federal rules restrict any use of the information to criminally investigate or prosecute any alcohol or drug abuse patient.[facility] HospitalIn the event this information is protected by the Federal Confidentiality of Alcohol and Drug Abuse Patient Records regulations: The Federal rules restrict any use of the information to criminally investigate or prosecute any alcohol or drug abuse patient.[facility] HospitalIn the event this information is protected by the Federal Confidentiality of Alcohol and Drug Abuse Patient Records regulations: The Federal rules restrict any use of the information to criminally investigate or prosecute any alcohol or drug abuse patient.[facility] HospitalIn the event this information is protected by the Federal Confidentiality of Alcohol and Drug Abuse Patient Records regulations: The Federal rules restrict any use of the information to criminally investigate or prosecute any alcohol or drug abuse patient.[facility] HospitalIn the event this information is protected by the Federal Confidentiality of Alcohol and Drug Abuse Patient Records regulations: The Federal rules restrict any use of the information to criminally investigate or prosecute any alcohol or drug abuse patient.[facility] HospitalIn the event this information is protected by the Federal Confidentiality of Alcohol and Drug Abuse Patient Records regulations: The Federal rules restrict any use of the information to criminally investigate or prosecute any alcohol or drug abuse patient.[facility] HospitalIn the event this information is protected by the Federal Confidentiality of Alcohol and Drug Abuse Patient Records regulations: The Federal rules restrict any use of the information to criminally investigate or prosecute any alcohol or drug abuse patient.[facility] HospitalIn the event this information is protected by the Federal Confidentiality of Alcohol and Drug Abuse Patient Records regulations: The Federal rules restrict any use of the information to criminally investigate or prosecute any alcohol or drug abuse patient.[facility] Reason for Visit (unrecogniz ed section and content) Reason Onset Date Comments Refill Request 01/02/2022 Reason Comments Headache Reason Comments Ear Pain left side x 1 day, h eadache x2 days Reason Comments Follow Up Ear pain Reason Comments Results Reason Comments Ear Pain L ear pain, nausea, vomiting, L side neck pain, dizziness x1 week Reason Comments Ear Pain right ear and neck p ain, eye pressure x 3 days Reason Comments Ear Pain right, seen last wee k on augmentin Reason Comments Ear Pain X 3 weeks Reason Comments Rectal Problem Reason Comments Pelvic Pain Reason Comments Patient Question Results Orders New Medication Reason Onset Date Comments Insertion Of IUD 05/13/2022 Specialty Diagnoses / Procedures Referred By Barrie ibarra Referred To Contact [facility] Diagnoses Deep dyspareunia Pelvic pain in female Encounter for insertion of intrauterine contraceptive device Encounter for removal of intrauterine contraceptive device Procedures INSERT INTRAUTERINE DEVICE LEVONORGESTREL IU 52MG 5 YR INSERT INTRAUTERINE DEVICE REMOVE INTRAUTERINE DEVICE Annabelle Gonzalez, REJECT OPENER.BOROUGH COORDINATOR [address] [place] [address] [facility] [address] [place] [address] Referral ID Status Reason Start Date Expiration Date Visits Requested Visits Authorized [id number] Authorized Auto-Generat ed Referral 05/11/2022 08/22/2022 2 2 Reason Comments Patient Update Reason Comments IUD check Reason Comments Ear Pain left x last night Reason Comments Diarrhea gi upset, nausea and fatigue x today Reason Comments ER F/U Reason Comments Appointment Reason Comments Behavioral Health Social Work Reason Comments Erroneous encounter-disregard Reason Comments Received Outside Medical Records Reason Comments Pelvic Pain Reason Comments Patient Question Reason Onset Date Comments IUD Removal 09/11/2022 Specialty Diagnoses / Procedures [facility] Diagnoses Encounter for IUD insertion Procedures INSERT INTRAUTERINE DEVICE LEVONORGESTREL IU 52MG 5 YR INSERT INTRAUTERINE DEVICE Annabelle Gonzalez, REJECT OPENER.BOROUGH COORDINATOR [address] [place] [address] [facility] [address] [place] [address] Referral ID Status Reason Start Date Expiration Date V isits Requested Visits Authorized [id number] Closed Auto-Generate d Referral 05/13/2022 05/13/2023 1 1 Reason Comments Vaginal Problem Reason Comments Medication Problem Specialty Diagnoses / Procedures [facility] To Contact ADULT PSYCHIATRY Diagnoses Mixed obsessional thoughts and acts PTSD (post-traumatic stress disorder) Borderline personality disorder (HCC) Procedures CONSULT TO INTENSIVE OUTPATIENT PROGRAM (IOP) OFFICE/OUTPATIENT [facility] 60-74 MINUTES Samaria Singh, REJECT OPENER.BOROUGH COORDINATOR [address] [place] [address] [facility] [address] [place] [address] Referral ID Status Reason Start Date Expiration Date Visits Requested Visits Authorized [id number] Authorized PCP Requested Referral 09/25/2022 09/25/2023 1 1 Reason Comments Follow Up Reason Comments Sore Throat bodyaches, headache x 1 day Reason Comments Headache Fever, nausea, ST x3 days Reason Comments Sore Throat KEENAN, fatigue x4 days Reason Comments Dizziness chills, sob and coug h x 2 days Reason Comments left shoulder injury 3 hours ago while p icking up a baby - has not taken anything for pain. Unable to lift arm. Reason Comments Headache KEENAN and nausea-sympto ms started last night Reason Comments Pelvic Pain Reason Comments Menorrhagia Specialty Diagnoses / Procedures [facility]erred To Contact [facility] Diagnoses Menorrhagia with regular cycle Procedures ENDOMETRIAL BIOPSY ENDOMETRIAL BX W/WO ENDOCERVIX BX W/O DILAT SPX Annabelle Gonzalez, CECILLE.BOROUGH COORDINATOR [address] [place] [address] [facility] [address] [place] [address] Referral ID Status Reason Start Date Expiration Date V isits Requested Visits Authorized [id number] Closed Auto-Generate d Referral 05/13/2023 05/12/2024 1 1 Reason Comments Refill Request Reason Comments Menstrual Problem Follow Up Tests Results Reason Comments Obsessive-Compulsive Disorder Care Teams (unrecognized sec tion and content) Lining Caser Relationship Specialty [place] [address] [place] [id number] PCP - General Family Practice 02/06/13 Lining Caser Relationship Specialty [place] [address] [place] [id number] PCP - General Family Practice 02/06/13 Lining Caser Relationship Specialty Start Date End Date Azar Smith MD [address] [place] [address] PCP - General Family Practice 02/06/13 Lining Caser Relationship Specialty Start Date End Date Azar Smith MD [address] [place] [id number] PCP - General Family Practice 02/06/13 Lining Caser Relationship Specialty Start Date End Date Azar Smith MD [address] [place] [address] PCP - General Family Practice 02/06/13 Lining Caser Relationship Specialty [place] [address] [place] [id number] PCP - General Family Practice 02/06/13 Lining Caser Relationship Specialty Start Date End Date Azar Smith MD [address] [place] [id number] PCP - General Family Practice 02/06/13 Lining Caser Relationship Specialty Start Date End Date Azar Smith MD [address] [facility] [place] [address] PCP - General Family Practice 02/06/13 Lining Caser Relationship Specialty Start Date End Date Azar Smith MD [address] [facility] [place] [address] PCP - General Family Practice 02/06/13 Lining Caser Relationship Specialty Start Date End Date Azar Smith MD [address] [facility] [place] [address] PCP - General Family Practice 02/06/13 Lining Caser Relationship Specialty Start Date End Date Azar Smith MD [address] [facility] [place] [address] PCP - General Family Practice 02/06/13 Lining Caser Relationship Specialty Start Date End Date Azar Smith MD [address] [facility] [place] [address] PCP - General Family Medicine 02/06/13 Lining Caser Relationship Specialty Start Date End Date Azar Smith MD [address] [facility] [place] [address] PCP - General Family Medicine 02/06/13 Lining Caser Relationship Specialty Start Date End Date Azar Smith MD [address] [facility] [place] [address] PCP - General Family Medicine 02/06/13 Lining Caser Relationship Specialty Start Date End Date Azar Smith MD [address] [facility] [place] [address] PCP - General Family Medicine 02/06/13 Lining Caser Relationship Specialty Start Date End Date Azar Smith MD [address] [facility] [place] [address] PCP - General Family Medicine 02/06/13 Lining Caser Relationship Specialty Start Date End Date Azar Smith MD [address] [facility] [place] [address] PCP - General Family Medicine 02/06/13 Lining Caser Relationship Specialty Start Date End Date Azar Smith MD [address] [facility] [place] [address] PCP - General Family Medicine 02/06/13 Lining Caser Relationship Specialty Start Date End Date Azar Smith MD [address] [facility] [place] [address] PCP - General Family Medicine 02/06/13 Lining Caser Relationship Specialty Start Date End Date Azar Smith MD [address] [facility] [place] [address] PCP - General Family Medicine 02/06/13 Lining Caser Relationship Specialty Start Date End Date Azar Smith MD [address] [facility] [place] [address] PCP - General Family Medicine 02/06/13 Lining Caser Relationship Specialty Start Date End Date Azar Smith MD [address] [facility] [place] [address] PCP - General Family Medicine 02/06/13 Lining Caser Relationship Specialty Start Date End Date Azar Smith MD [address] [facility] [place] [address] PCP - General Family Medicine 02/06/13 Lining Caser Relationship Specialty Start Date End Date Azar Smith MD [address] [facility] [place] [address] PCP - General Family Medicine 02/06/13 Lining Caser Relationship Specialty Start Date End Date Azar Smith MD [address] [facility] [place] [address] PCP - General Family Medicine 02/06/13 Lining Caser Relationship Specialty Start Date End Date Azar Smith MD [address] [facility] [place] [address] PCP - General Family Medicine 02/06/13 Lining Caser Relationship Specialty Start Date End Date Azar Smith MD [address] [facility] [place] [address] PCP - General Family Medicine 02/06/13 Lining Caser Relationship Specialty Start Date End Date Azar Smith MD [address] [facility] [place] [address] PCP - General Family Medicine 02/06/13 Lining Caser Relationship Specialty Start Date End Date Azar Smith MD [address] [place] [address] PCP - General Family Medicine 02/06/13 Lining Caser Relationship Specialty Start Date End Date Azar Smith MD [address] [facility] [place] [address] PCP - General Family Medicine 02/06/13 Lining Caser Relationship Specialty Start Date End Date Azar Smith MD [address] [place] [address] PCP - General Family Medicine 02/06/13 Lining Caser Relationship Specialty Start Date End Date Azar Smith MD [address] [facility] [place] [address] PCP - General Family Medicine 02/06/13 Lining Caser Relationship Specialty Start Date End Date Azar Smith MD [address] [facility] [place] [address] PCP - General Family Medicine 02/06/13 Lining Caser Relationship Specialty Start Date End Date Azar Smith MD [address] [place], [place] [id number] PCP - General Family Medicine 02/06/13 Lining Caser Relationship Specialty Start Date End Date Azar Smith MD [address] [place], [place] [address] PCP - General Family Medicine 02/06/13 Lining Caser Relationship Specialty Start Date End Date Azar Smith MD [address] [place] [address] PCP - General Family Medicine 02/06/13 Lining Caser Relationship Specialty Start Date End Date Azar Smith MD [address] [place] [address] PCP - General Family Medicine 02/06/13 Lining Caser Relationship Specialty Start Date End Date Azar Smith MD [address] [place] [address] PCP - General Family Medicine 02/06/13 Lining Caser Relationship Specialty Start Date End Date Azar Smith MD [address] [place] [address] PCP - General Family Medicine 02/06/13 Lining Caser Relationship Specialty Start Date End Date Azar Smith MD [address] [place], [place] [id number] PCP - General Family Medicine 02/06/13 Lining Caser Relationship Specialty Start Date End Date Azar Smith MD [address] [place], [place] [address] PCP - General Family Medicine 02/06/13 Lining Caser Relationship Specialty Start Date End Date Aazr Smith MD [address] [place] [address] PCP - General [facility] 02/06/13 Lining Caser Relationship Specialty Start Date End Date Azar Smith MD [address] [place], [place] [address] PCP - General [facility] 02/06/13 Lining Caser Relationship Specialty Start Date End Date Azar Smith MD [address] [place], [place] [id number] PCP - [facility] 02/06/13 FOR RECORDS PERTAINING TO PATIENTS WHO ARE OR HAVE BEEN ENROLLED IN A CHEMICAL DEPENDENCY/SUBSTANCEABUSE PROGRAM, SOME INFORMATION MAY BE OMITTED. This clinical summary was aggregated from multiple sources. Caution should be exercised in using it in the provision of clinical care. This summary normalizes information from multiple sources, and as a consequence, information in this document may materially change the coding, format and clinical context of patient data. In addition, data may be omitted in some cases. CLINICAL DECISIONS SHOULD BE BASED ON THE PRIMARY CLINICAL RECORDS. [facility]. provides no warranty or guarantee of the accuracy or completeness of information in this document.
[2023-10-18] MEDS: proMETHazine 25 MG/ML Syringe 6.25 MG IM (07:07)
[2023-10-18 07:48] LABS: Mucous, Urine 0 SEEN /hpf (<or=2+); Red Blood Cells-Urine 0 SEEN /hpf (0-5)
[2023-10-18 07:49] LABS: Color, Urine Yellow (Yellow); Glucose, Dipstick Normal (Normal); Leukocyte Esterase-Dipstick 25 /ul (Negative); Nitrite-Dipstick Negative (Negative); Occult Blood-Urine Negative /ul (Negative); Protein-Dipstick 30 mg/dl (Negative); Urine Bilirubin Dipstick Negative (Negative); Urine Clarity Sl. Cloudy (Clear); Urine Urobilinogen Normal (Normal)
[2023-10-18 07:51] LABS: Ketone-Dipstick 150 mg/dl (Negative)
[2023-10-18 07:57] LABS: Bacteria 1+ /hpf (None Seen); Squamous Epithelial Cells - UA 5-10 SEEN /hpf (5-10); White Blood Cells 0-5 SEEN /hpf (0-5)
[2023-10-18 08:20] VITALS: BP 120/54; PULSE 60; RESP 16; O2SAT 99
[2023-10-18 09:12] VITALS: BP 128/80; PULSE 65; RESP 16; TEMP 37; O2SAT 99
== END 2023-10-18 09:16 | disposition home or self-care (01) ==
PROVIDERS: Emergency Provider Emergency Medicine; PCP Family Medicine; Visit Provider Emergency Medicine
DX: K52.9 Noninfective gastroenteritis and colitis, unspecified (principal); F17.210 Nicotine dependence, cigarettes, uncomplicated; K21.9 Gastro-esophageal reflux disease without esophagitis; J45.909 Unspecified asthma, uncomplicated; K44.9 Diaphragmatic hernia without obstruction or gangrene; R16.0 Hepatomegaly, not elsewhere classified; R11.2 Nausea with vomiting, unspecified
CPT/HCPCS: 74177; 80053; 81001; 83690; 84703; 85025; 87631; 96361; 96372; 96374; 99282; J7030; Q9967; A4216; J2405

== ENCOUNTER 2024-06-02 11:58 | Emergency (ER) | payer MEDICAID, SELFPAY ==
[2024-06-02 11:59] VITALS: BP 148/99; PULSE 100; RESP 16; TEMP 37.1; O2SAT 100; BMI 29.2
[2024-06-02 13:54] LABS: Absolute Lymphocyte Count 2.14 X10^3/uL (0.83-4.51); Absolute Neutrophil Count 6.4 X10^3/uL (2.0-7.7); Basophil# 0.11 X10^3/uL; Basophil% 1.2 % (0-1); Eosinophil# 0.08 X10^3/uL; Eosinophils% 0.9 % (0-5); Hemoglobin 12.3 g/dL (12.0-15.0); Lymphocyte # 2.14 X10^3/ul (0.83-4.51); Lymphocyte % 23.1 % (19-41); Mean Corp Hgb Conc 31.5 g/dL (32-36); Mean Corpuscular Hgb 25.6 pg (27.0-32.0); Mean Corpuscular Volume 81.3 fL (81-99); Mean Platelet Vol. 9.3 fl (6.2-12.0); Monocyte# 0.47 X10^3/uL; Monocyte% 5.1 % (0-10); NRBC Flagged by Analyzer 0 % (0-5); Neutrophil # 6.42 X10^3/uL (2.7-7.7); Neutrophil % 69.3 % (47-70); Platelet Count 377 K/mm3 (150-450); RBC Distribution Width CV 15.5 % (11.6-14.6); RBC Distribution Width SD 46.1 fl (35.1-43.9); White Blood Count 9.3 K/mm3 (4.4-11.0)
--- NOTE | 2024-06-02 13:54 | ED.RN ---
PT C/O BILATERAL HAND/ARM NUMBNESS FOR THREE DAYS. DENIES ANY OTHER SYMPTOMS. STATES WHEN THE NUMBNESS GOES AWAY, IT JUST HURTS
[2024-06-02 13:56] VITALS: BP 152/72; PULSE 88; RESP 19; O2SAT 100
--- NOTE | 2024-06-02 14:05 | RAD_ITS ---
EXAM: XR CHEST, 2 VIEWS CLINICAL INDICATION: right arm numbness/ tingling TECHNIQUE: Frontal and lateral views of the chest. COMPARISON: 03/26/2023. FINDINGS: LUNGS AND PLEURAL SPACES: Unremarkable. No consolidation or edema. No pneumothorax. No effusion. HEART: Unremarkable. Cardiac silhouette not enlarged. MEDIASTINUM: Central airways and mediastinal contour are unremarkable. BONES/JOINTS: Unremarkable. No acute fracture. SOFT TISSUES: Unremarkable. RAD/Chest PA and Lateral IMPRESSION: No radiographic evidence of acute cardiopulmonary disease and unchanged. Electronically Signed: Remy Valencia MD at 14:57 EDT ,
[2024-06-02 14:10] LABS: Anion Gap 5 (5-15); BUN 9 mg/dL (7-18); BUN/Creat Ratio 16.8 RATIO (10-20); Calcium,Total 8.9 mg/dL (8.5-10.1); Chloride 106 mmol/L (98-107); Creatinine, Serum 0.54 mg/dL (0.55-1.02); EST Glomerular Filtration Rate 139 mL/min (>60); Est Glom Filt Rate - Afr Amer 168 mL/min (>60); Estimated Creatinine Clearance 138.31 ml/min; Glucose 95 mg/dL (74-106); Potassium 3.9 mmol/L (3.5-5.1); Sodium Level 140 mmol/L (136-145); Troponin-I HS < 3 pg/mL (3.0-54.0)
[2024-06-02 15:00] VITALS: BP 108/68; PULSE 84; RESP 20; O2SAT 98
--- NOTE | 2024-06-02 15:08 | EDS_ITS ---
HPI History of Present Illness Chief Complaint: Numb/Ting Narrative Narrative: Patient is a 33-year-old female with a past medical history of GERD, biloma, marijuana abuse, asthma who presents to the emergency department the chief complaint of numbness and tingling in her hands. She also states that she has some numbness tingling in her feet bilaterally. She states that her symptoms have been going on for the past several days. Patient notes that when she wakes up from sleeping at night her hands are numb and tingly and as the day goes on her symptoms improved. States that her symptoms are worse in her first 3 fingers in her hands bilaterally. Patient states that she went to urgent care for this recently however was sent home. Patient notes that her symptoms also started when she started her menstrual cycle. Patient denies any injuries. [facility] Medical History Marijuana abuse Acid reflux Current smoker Thyroid disease Thymoma Post depression Femur fracture Breast disorder Asthma Anemia complicating Home Medications ?Medication ?Instructions ?Recorded ?Last Taken ?Type prazosin 2 mg capsule 3 mg PO DAILY 05/26/23 Unknown History promethazine 25 mg tablet 25 mg PO TID PRN nausea and 05/26/23 Unknown Rx vomiting #14 tabs ondansetron 4 mg disintegrating 4 mg PO Q8H PRN PRN Nausea #10 tabs 10/18/23 Unknown Rx tablet Allergy/AdvReac Type Severity Reaction Status Date / Time gentamicin (Gentamicin) Allergy Unknown Other Verified 06/02/24 12:02 cat dander Allergy Other Verified 06/02/24 12:02 grass pollen Allergy Hives Verified 06/02/24 12:02 Family History Aunt Abuse, drug or alcohol maternal Thyroid disorder maternal Mother Abuse, drug or alcohol PTSD (post-traumatic stress disorder) Anxiety and depression Myocardial infarction Melanoma Grandfather Abuse, drug or alcohol maternal Brother Melanoma Grandmother Heart disease maternal Surgical History Hx of section S/P tubal ligation Status post repeat low transverse section History of esophagogastroduodenoscopy History of colonoscopy History of thoracotomy History of tonsillectomy and adenoidectomy History of laparoscopic cholecystectomy H/O dilation and curettage Social History Smoking Status: Current every day smoker tobacco type: e-cigarettes Electronic Cigarette Use: not used second hand exposure: Yes substance use type: marijuana ROS ROS ED ROS Narrative Constitutional: Denies any fevers, chills, headaches, lightness, dizziness Eyes: Denies change in vision double vision blurry vision Cardiovascular: Denies chest pain palpitations Respiratory: Denies coughing wheezing shortness of breath Abdomen: Denies abdominal pain nausea vomit diarrhea : Denies any painful urination, hematuria or polyuria Neurological: Complains of numbness and tingling her hands bilaterally as noted above as well as her feet bilaterally but states that her legs feel fine Musculoskeletal: Denies back pain Skin: Denies rashes or lesions EXAM Physical Exam Narrative Exam Narrative: General: Patient lying in bed rest comfortably did not appear to be in acute distress Head: Atraumatic, normocephalic Eyes: PERRL bilateral, EOMI bilateral, no conjunctival injection noted Neck: Soft, supple, trach midline Cardiovascular: Regular in rhythm no murmurs gallops rubs noted Respiratory: Clear to auscultation bilaterally Abdomen: Soft, nondistended, nontender to palpation, bowel sounds present x 4 Extremities: Radial pulses +2/4 in the bilateral upper extremities, no pedal edema on exam, radial pulses +2/4 in the bilateral per extremities. Patient has full range of motion of all other extremities. +5/5 strength noted in the bilateral upper and lower extremities Neurological: Patient was following commands knew that she was at [facility] year is 2023. Sensation grossly intact throughout her body. Sensation is the same also in the median ulnar radial nerve distribution bilaterally Skin: Warm, dry, intact no rashes or lesions noted Const Vital Signs: 06/02/24 11:59 06/02/24 13:52 06/02/24 13:56 Temperature 98.7 F Temperature Source Oral Pulse Rate 100 88 Respiratory Rate 16 19 H Blood Pressure 148/99 H 152/72 H Blood Pressure Mean 115 98 Pulse Ox 100 100 Oxygen Delivery Method Room Air Room Air Room Air MDM MDM MDM Narrative Medical decision making narrative: Patient is a 33-year-old female who presents to the emerged part with a chief complaint of numbness tingling her hands bilaterally specifically after she wakes up from sleeping at night. Patient will have workup performed here on the differential diagnose includes but not limited to electrolyte abnormalities, ACS, carpal tunnel syndrome. Once workup is obtained reviewed she will be reevaluated. I had the patient perform Phalen's test and this exacerbated her symptoms. Patient CBC was reviewed and was largely unremarkable no evidence leukocytosis white blood count normal at 9.3, hemoglobin stable 12.3, platelet count was noted to be normal at 330 377. Patient's sodium normal at 140, potassium normal 3.9, creatinine normal at 0.54. Patient's troponin was noted be normal at less than 3. Patient's EKG was reviewed and independently interpreted by myself which showed sinus rhythm with a rate of 88 bpm. Patient's chest x-ray was reviewed by myself and by radiology showed no acute cardiopulmonary processes. Did discuss results with the patient and she would like to go home at this point time. Patient will be given to removable wrist splints and was advised to use these at night and use NSAIDs for pain control. She will be referred to orthopedic surgery in the outpatient setting. She is advised to follow-up with her primary care physician outpatient setting. She was encouraged return portion symptoms or other concerns. All question concerns answered at bedside. Lab Data Labs: Laboratory Results - last 24 hr 06/02/24 13:46 WBC 9.3 RBC 4.80 Hgb 12.3 Hct 39.0 MCV 81.3 MCH 25.6 L MCHC 31.5 L RDW Std Deviation 46.1 H RDW Coeff of Anjana 15.5 H Plt Count 377 MPV 9.3 Immature Gran % (Auto) 0.400 Neut % (Auto) 69.3 Lymph % (Auto) 23.1 [place] % (Auto) 5.1 Eos % (Auto) 0.9 Baso % (Auto) 1.2 H Absolute Neuts (auto) 6.4 Absolute Lymphs (auto) 2.14 Nucleated RBC % 0 Sodium 140 Potassium 3.9 Chloride 106 Carbon Dioxide 29.0 Anion Gap 5 BUN 9 Creatinine 0.54 L Estim Creat Clear Calc 138.31 Est GFR (MDRD) Af Amer 168 Est GFR (MDRD) Non-Af 139 BUN/Creatinine Ratio 16.8 Glucose 95 Calcium 8.9 Troponin I High Sens < 3 L Radiography Diagnostic Testing: Clinical Impression(s) from Imaging Studies Chest X-Ray 06/02/24 14:05 IMPRESSION: No radiographic evidence of acute cardiopulmonary disease and unchanged. Electronically Signed: Remy Valencia MD at 14:57 EDT , Discharge Plan Triage Chief Complaint: Numb/Ting ED Provider: Mathieu Hoffman Dx/Rx/DC Orders Clinical Impression: Carpal tunnel syndrome Instructions: Carpal Tunnel Prevention Tips Prescriptions: No Action prazosin 2 mg capsule 3 mg PO DAILY Patient Comments: TAKE 1 CAPSULE BY MOUTH DAILY AT BEDTIME. TAKE WITH 1 MG DOSE. promethazine 25 mg tablet 25 mg PO TID PRN (Reason: nausea and vomiting) Qty: 14 0RF ondansetron [ondansetron] 4 mg tablet,disintegrating 4 mg PO Q8H PRN PRN (Reason: Nausea) Qty: 10 0RF Primary Care Provider: Azar Smith Referrals: Mesfin Fuentes MD [Med Staff - Active Staff] - Azar Smith MD [Primary Care Provider] - Activity Restrictions/Additional Instructions: Wear the removable wrist splints at night when you go to bed to try to prevent your symptoms. Follow-up with orthopedic team in the outpatient setting. Follow-up with your primary care physician outpatient setting team. Return with worsening symptoms or other concerns. Print Language: Lao Disposition Disposition: Home, Self Care
[2024-06-02 15:21] VITALS: BP 108/68; PULSE 84; RESP 20; TEMP 37.2; O2SAT 98
== END 2024-06-02 15:35 | disposition home or self-care (01) ==
PROVIDERS: Emergency Provider Emergency Medicine; PCP Family Medicine; Visit Provider Emergency Medicine
DX: G56.03 Carpal tunnel syndrome, bilateral upper limbs (principal); J45.909 Unspecified asthma, uncomplicated; K21.9 Gastro-esophageal reflux disease without esophagitis; F17.290 Nicotine dependence, other tobacco product, uncomplicated; F12.10 Cannabis abuse, uncomplicated; Z79.899 Other long term (current) drug therapy
CPT/HCPCS: 71046; 80048; 84484; 85025; 93005; 99285

== ENCOUNTER 2024-08-29 15:56 | Emergency (ER) | payer MEDICAID, SELFPAY ==
[2024-08-29 15:57] VITALS: BP 135/95; PULSE 101; RESP 18; TEMP 36.4; O2SAT 100; BMI 34.5
[2024-08-29 16:26] LABS: Bacteria 0 SEEN /hpf (None Seen); Mucous, Urine 0 SEEN /hpf (<or=2+); Red Blood Cells-Urine 0 SEEN /hpf (0-5); White Blood Cells 0 SEEN /hpf (0-5)
[2024-08-29 16:31] LABS: Color, Urine Yellow (Yellow); Glucose, Dipstick Normal (Normal); Ketone-Dipstick Negative (Negative); Leukocyte Esterase-Dipstick Negative /ul (Negative); Nitrite-Dipstick Negative (Negative); Occult Blood-Urine Negative /ul (Negative); Protein-Dipstick 15 mg/dl (Negative); Urine Bilirubin Dipstick Negative (Negative); Urine Clarity Sl. Cloudy (Clear); Urine Urobilinogen Normal (Normal); Urine pH 6.5 (5.0 - 8.0)
[2024-08-29 17:02] LABS: Absolute Lymphocyte Count 3.53 X10^3/uL (0.83-4.51); Absolute Neutrophil Count 8.7 X10^3/uL (2.0-7.7); Basophil# 0.09 X10^3/uL; Basophil% 0.7 % (0-1); Eosinophil# 0.07 X10^3/uL; Eosinophils% 0.5 % (0-5); Hemoglobin 13.3 g/dL (12.0-15.0); Lymphocyte # 3.53 X10^3/ul (0.83-4.51); Lymphocyte % 27.2 % (19-41); Mean Corp Hgb Conc 31.7 g/dL (32-36); Mean Corpuscular Hgb 25.4 pg (27.0-32.0); Mean Corpuscular Volume 80.3 fL (81-99); Mean Platelet Vol. 9.9 fl (6.2-12.0); Monocyte# 0.57 X10^3/uL; Monocyte% 4.4 % (0-10); NRBC Flagged by Analyzer 0 % (0-5); Neutrophil # 8.66 X10^3/uL (2.7-7.7); Neutrophil % 66.7 % (47-70); Platelet Count 375 K/mm3 (150-450); RBC Distribution Width CV 14.7 % (11.6-14.6); RBC Distribution Width SD 42.1 fl (35.1-43.9); Red Blood Count 5.23 M/mm3 (4.2-5.4)
[2024-08-29 17:23] LABS: Internal QC Validated? YES +Cl - CLEAR BKGD; Pregnancy, Serum, hCG Quali. NEGATIVE Negative
[2024-08-29 17:24] LABS: AST(SGOT) 18 U/L (15-37); Alanine Aminotransfer ALT/SGPT 27 U/L (13-56); Albumin, Serum 3.9 g/dL (3.2-5.0); Alkaline Phosphatase 96 U/L (45-117); Anion Gap 6 (5-15); BUN 10 mg/dL (7-18); Calcium,Total 9.2 mg/dL (8.5-10.1); Chloride 106 mmol/L (98-107); Creatinine, Serum 0.53 mg/dL (0.55-1.02); EST Glomerular Filtration Rate 142 mL/min (>60); Est Glom Filt Rate - Afr Amer 172 mL/min (>60); Estimated Creatinine Clearance 153.37 ml/min; Globulin 3.9 g/dL (2.2-4.2); Glucose 94 mg/dL (74-106); Potassium 3.9 mmol/L (3.5-5.1); Protein, Total 7.8 g/dL (6.4-8.2); Sodium Level 136 mmol/L (136-145)
[2024-08-29 17:31] LABS: Squamous Epithelial Cells - UA 0-5 SEEN /hpf (5-10)
--- NOTE | 2024-08-29 17:41 | EDS_ITS ---
HPI History of Present Illness Chief Complaint: Flank Pain Informant: patient Onset/Context/Timing Context: Sudden Onset Timing: Continuous Quality: Dull, but sharp at times Location: Right flank Worsened by: Movement Relieved by: Nothing Narrative Narrative: Patient presents with right flank pain that began yesterday. Patient states it began rather suddenly. Patient states her pain is a constant dull ache that gets sharp at times. Patient is patient states the pain is worse with movement. Patient also admits to some fatigue. Patient admits to some nausea but denies any vomiting. Patient admits to decreased appetite. Patient denies any fevers or chills. Patient denies any chest pain or shortness of breath. Patient denies any dysuria. Patient states her urine was brown yesterday but she drank fluids and this improved. [facility] Medical History Marijuana abuse Acid reflux Current smoker Thyroid disease Thymoma Post depression Femur fracture Breast disorder Asthma Anemia complicating Home Medications ?Medication ?Instructions ?Recorded ?Last Taken ?Type prazosin 2 mg capsule 3 mg PO DAILY 05/26/23 Unknown History promethazine 25 mg tablet 25 mg PO TID PRN nausea and 05/26/23 Unknown Rx vomiting #14 tabs ondansetron 4 mg disintegrating 4 mg PO Q8H PRN PRN Nausea #10 tabs 10/18/23 Unknown Rx tablet Allergy/AdvReac Type Severity Reaction Status Date / Time gentamicin (Gentamicin) Allergy Unknown Other Verified 08/29/24 15:57 cat dander Allergy Other Verified 08/29/24 15:57 grass pollen Allergy Hives Verified 08/29/24 15:57 Family History Aunt Abuse, drug or alcohol maternal Thyroid disorder maternal Mother Abuse, drug or alcohol PTSD (post-traumatic stress disorder) Anxiety and depression Myocardial infarction Melanoma Grandfather Abuse, drug or alcohol maternal Brother Melanoma Grandmother Heart disease maternal Surgical History Hx of section S/P tubal ligation Status post repeat low transverse section History of esophagogastroduodenoscopy History of colonoscopy History of thoracotomy History of tonsillectomy and adenoidectomy History of laparoscopic cholecystectomy H/O dilation and curettage Social History Smoking Status: Current every day smoker tobacco type: e-cigarettes Electronic Cigarette Use: not used second hand exposure: Yes substance use type: marijuana ROS ROS ED Constitutional Constitutional ED: Denies chills or fever(s) Eyes Eyes: Denies blurry vision or change in vision ENT ENT ED: Denies rhinorrhea or sore throat Cardiovascular Cardiovascular: Denies chest pain or palpitations Respiratory/Chest Respiratory/Chest: Denies cough or dyspnea Gastrointestinal Gastrointestinal: Reports abdominal pain and nausea; Denies vomiting Genitourinary Genitourinary ED: Denies dysuria or hematuria Musculoskeletal Musculoskeletal: Denies back pain or neck pain Integumentary Denies abscess or rash Neurologic Neurologic: Denies headache(s) or weakness Allergic/Immunologic Allergic/Immunologic ED: Denies mouth swelling or urticaria EXAM Physical Exam Const Vital Signs: 08/29/24 15:57 08/29/24 18:00 Temperature 97.6 F L Temperature Source Temporal Pulse Rate 101 H 79 Respiratory Rate 18 16 Blood Pressure 135/95 H 117/76 Blood Pressure Mean 108 89 Pulse Ox 100 99 Oxygen Delivery Method Room Air Room Air Positive well nourished and well developed General Appearance ED: well developed and NAD HEENT Reports moist mucous membranes Neck supple and no JVD Resp normal respiratory effort and clear to auscultation bilaterally Cardio regular rate and regular rhythm GI non-tender and non-distended Palpation: soft Back/Spine General Back: CVA tenderness right Neuro oriented x3, CN's II-XII intact bilaterally and no sensory deficits noted Sensorium / Orientation: alert Motor Exam: strength 5/5 throughout Psych mental status grossly normal MDM MDM MDM Narrative Medical decision making narrative: Differential diagnose includes ureteral calculus, pyelonephritis, urinary tract infection, colitis, diverticulitis, appendicitis, and choledocholithiasis. CBC will be obtained to assess for leukocytosis and anemia. Comprehensive metabolic profile will be obtained to assess for electrolyte abnormality, renal function, and hepatic function. Serum hCG will be obtained to assess for . Urinalysis will be obtained to assess for urinary tract infection and hematuria. CT scan of the abdomen and pelvis will be obtained to assess for ureteral calculus and diverticulitis. Lab Data Attestation: I reviewed the patient's lab results. Lab results narrative: CBC was reviewed. There is a mild leukocytosis of 13.0. The remainder is within normal limits. Comprehensive metabolic profile was reviewed and was within normal limits. Serum hCG was reviewed and was negative. Urinalysis was reviewed and did not show any evidence of urinary tract infection or hematuria. Labs: Laboratory Results - last 24 hr 08/29/24 08/29/24 16:10 16:55 WBC 13.0 H RBC 5.23 Hgb 13.3 Hct 42.0 MCV 80.3 L MCH 25.4 L MCHC 31.7 L RDW Std Deviation 42.1 RDW Coeff of Anjana 14.7 H Plt Count 375 MPV 9.9 Immature Gran % (Auto) 0.500 Neut % (Auto) 66.7 Lymph % (Auto) 27.2 [place] % (Auto) 4.4 Eos % (Auto) 0.5 Baso % (Auto) 0.7 Absolute Neuts (auto) 8.7 H Absolute Lymphs (auto) 3.53 Nucleated RBC % 0 Sodium 136 Potassium 3.9 Chloride 106 Carbon Dioxide 24.0 Anion Gap 6 BUN 10 Creatinine 0.53 L Estim Creat Clear Calc 153.37 Est GFR (MDRD) Af Amer 172 Est GFR (MDRD) Non-Af 142 BUN/Creatinine Ratio 19.0 Glucose 94 Calcium 9.2 Total Bilirubin 0.30 AST 18 ALT 27 Alkaline Phosphatase 96 Total Protein 7.8 Albumin 3.9 Globulin 3.9 Albumin/Globulin Ratio 1.0 Serum , Qual NEGATIVE Urine Color Yellow Urine Clarity Sl. Cloudy Urine pH 6.5 Ur Specific [place] 1.010 Urine Protein 15 H Urine Glucose (UA) Normal Urine Ketones Negative Urine Occult Blood Negative Urine Nitrite Negative Urine Bilirubin Negative Urine Urobilinogen Normal Ur Leukocyte Esterase Negative Urine RBC 0 SEEN Urine WBC 0 SEEN Ur Squamous Epith Cells 0-5 SEEN Urine Bacteria 0 SEEN Urine Mucus 0 SEEN Radiography Diagnostic Testing: Clinical Impression(s) from Imaging Studies Abdomen/Pelvis CT 08/29/24 17:48 IMPRESSION: Hepatomegaly. No biliary dilatation. No stones or hydronephrosis. Electronically Signed: Chuck Hernandez MD at 18:21 EST , CT scan of the abdomen and pelvis was obtained. There is no ureteral calculus or hydronephrosis noted. There is some hepatomegaly. There is no biliary dilatation. There is no acute abnormality. This was interpreted by the radiologist was also independently reviewed by myself. Treatment and Re-Evaluation :: Nicotine cessation was discussed. Patient was given IV fluids, morphine, and Zofran. Patient is feeling better on reevaluation. The patient was advised of her findings. Patient was instructed to take Tylenol or ibuprofen as needed for pain. Patient was instructed to follow-up with her primary care physician in 5 to 7 days. Patient instructed to return if worse in any way. Patient understood and was agreeable with the plan. All questions were answered Discharge Plan Triage Chief Complaint: Flank Pain ED Provider: Luke Arias Dx/Rx/DC Orders Clinical Impression: Right flank pain, Elevated blood pressure reading without diagnosis of hypertension Instructions: ED Flank Pain, Uncertain Cause Prescriptions: No Action prazosin 2 mg capsule 3 mg PO DAILY Patient Comments: TAKE 1 CAPSULE BY MOUTH DAILY AT BEDTIME. TAKE WITH 1 MG DOSE. promethazine 25 mg tablet 25 mg PO TID PRN (Reason: nausea and vomiting) Qty: 14 0RF ondansetron [ondansetron] 4 mg tablet,disintegrating 4 mg PO Q8H PRN PRN (Reason: Nausea) Qty: 10 0RF Primary Care Provider: Azar Smith Referrals: Azar Smith MD [Primary Care Provider] - 5-7 Days Print Language: Chinese Disposition Disposition: Home, Self Care
--- NOTE | 2024-08-29 17:48 | CT_ITS ---
STUDY: CT ABDOMEN AND PELVIS WITHOUT CONTRAST REASON FOR EXAM: Female, 33 years old. Right flank pain RADIATION DOSAGE (If Supplied By Facility): CTDIvol = ( 12.46 ) mGy, DLP = ( 678.63 ) mGycm TECHNIQUE: Transaxial images were obtained from the dome of the diaphragm to the symphysis pubis without oral contrast, and without intravenous contrast. Sagittal and coronal images were reconstructed. Individualized dose optimization techniques were used for this CT. COMPARISON: October 18, 2023 FINDINGS: The visualized lung bases are unremarkable. The visualized portions of the heart are within normal limits. There is hepatomegaly with diffuse hepatic enlargement. There is non-visualization of the gallbladder, which may be secondary to either contraction or a prior cholecystectomy. Normal spleen. Normal pancreas. Normal bilateral adrenal glands. Normal right kidney. Normal left kidney. Normal visualized stomach. Normal small intestine. Normal colon. The appendix is visualized and appears normal. Normal abdominal aorta. Normal inferior vena cava. Normal retroperitoneum. Normal urinary bladder. Normal visualized uterus. There is no free fluid in the abdomen or pelvis. Normal abdominal wall. Normal osseous structures. CT/Abdomen/Pelvis without Cont IMPRESSION: Hepatomegaly. No biliary dilatation. No stones or hydronephrosis. Electronically Signed: Chuck Hernandez MD at 18:21 EST ,
[2024-08-29] MEDS: 0.9% Normal Saline (1000mL) 1,000 ML 1000 ML IV (17:59)
[2024-08-29] MEDS: Ondansetron 4 MG/2 ML Vial IV (17:59)
[2024-08-29 18:00] VITALS: BP 117/76; PULSE 79; RESP 16; O2SAT 99
[2024-08-29] MEDS: Morphine 4 MG/ML Syringe IV (18:00)
[2024-08-29 19:19] VITALS: BP 117/76; PULSE 79; RESP 16; TEMP 36.4; O2SAT 99
[2024-08-29 19:23] VITALS: BP 118/81; RESP 16; O2SAT 98
== END 2024-08-29 19:24 | disposition home or self-care (01) ==
PROVIDERS: Emergency Provider Emergency Medicine; PCP Family Medicine; Visit Provider Emergency Medicine
DX: R10.9 Unspecified abdominal pain (principal); R03.0 Elevated blood-pressure reading, without diagnosis of hypertension; R11.0 Nausea; K21.9 Gastro-esophageal reflux disease without esophagitis; J45.909 Unspecified asthma, uncomplicated; F17.290 Nicotine dependence, other tobacco product, uncomplicated
CPT/HCPCS: 74176; 80053; 81001; 84703; 85025; 96361; 96374; 96375; 99282; A4216; J2405

== ENCOUNTER 2024-08-30 11:38 | Emergency (ER) | payer MEDICAID, SELFPAY ==
[2024-08-30 11:38] VITALS: BP 135/87; PULSE 103; RESP 18; TEMP 36.6; O2SAT 97; BMI 34.7
--- NOTE | 2024-08-30 12:04 | EDS_ITS ---
HPI History of Present Illness Chief Complaint: Flank Pain Informant: patient Narrative Narrative: 33-year-old female presenting to the emergency department for a repeat visit for right flank pain. She states she was seen in the emergency department last night for right flank pain that radiates towards her right side of her abdomen now. She notes associated nausea. She states she went to urgent care and they told her to come to emergency to have her biliary duct looked at. Patient had normal LFTs last night and the comment on the CT from the radiologist was fatty liver with no ductal dilatation. Patient states that her urine was brown this morning. She denies any rashes or fever. Noted white count 13 last night. PFSH PFS Medical History Marijuana abuse Acid reflux Current smoker Thyroid disease Thymoma Post depression Femur fracture Breast disorder Asthma Anemia complicating Home Medications ?Medication ?Instructions ?Recorded ?Last Taken ?Type prazosin 2 mg capsule 3 mg PO DAILY 05/26/23 Unknown History promethazine 25 mg tablet 25 mg PO TID PRN nausea and 05/26/23 Unknown Rx vomiting #14 tabs ondansetron 4 mg disintegrating 4 mg PO Q8H PRN PRN Nausea #10 tabs 10/18/23 Unknown Rx tablet Allergy/AdvReac Type Severity Reaction Status Date / Time gentamicin (Gentamicin) Allergy Unknown Other Verified 08/29/24 15:57 cat dander Allergy Other Verified 08/29/24 15:57 grass pollen Allergy Hives Verified 08/29/24 15:57 Family History Aunt Abuse, drug or alcohol maternal Thyroid disorder maternal Mother Abuse, drug or alcohol PTSD (post-traumatic stress disorder) Anxiety and depression Myocardial infarction Melanoma Grandfather Abuse, drug or alcohol maternal Brother Melanoma Grandmother Heart disease maternal Surgical History Hx of section S/P tubal ligation Status post repeat low transverse section History of esophagogastroduodenoscopy History of colonoscopy History of thoracotomy History of tonsillectomy and adenoidectomy History of laparoscopic cholecystectomy H/O dilation and curettage Social History Smoking Status: Current every day smoker tobacco type: e-cigarettes Electronic Cigarette Use: not used second hand exposure: Yes substance use type: marijuana ROS ROS ED Constitutional Constitutional ED: Denies chills or weight loss Eyes Eyes: Denies change in vision or diplopia ENT ENT ED: Denies ear pain, rhinorrhea or sore throat Cardiovascular Cardiovascular: Denies chest pain, orthopnea, palpitations or racing heartbeat Respiratory/Chest Respiratory/Chest: Denies cough, dyspnea or orthopnea Gastrointestinal Gastrointestinal: Reports abdominal pain, nausea and other Details: Right flank pain ; Denies diarrhea or vomiting Genitourinary Genitourinary ED: Denies dysuria, hematuria or urinary frequency Musculoskeletal Musculoskeletal: Denies arthralgias or myalgias Integumentary Denies abscess or rash Neurologic Neurologic: Denies headache(s) or weakness Psychiatric Psychiatric: Denies anxiety, depression, suicidal ideation or suicidal thoughts Endocrine Endocrinology: Denies polydipsia, polyphagia or polyuria Allergic/Immunologic Allergic/Immunologic ED: Denies mouth swelling, tongue swelling or urticaria EXAM Physical Exam Const Vital Signs: 08/30/24 11:38 08/30/24 13:26 Temperature 97.9 F 97.9 F Temperature Source Temporal Pulse Rate 103 H 103 H Respiratory Rate 18 18 Blood Pressure 135/87 H 135/87 H Blood Pressure Mean 103 103 Pulse Ox 97 97 Oxygen Delivery Method Room Air Positive well nourished and well developed General Appearance ED: well developed HEENT Reports normocephalic, head/scalp atraumatic and moist mucous membranes Eyes PERRL and EOMs intact bilaterally Neck no lymphadenopathy, supple and no JVD Resp normal respiratory effort and clear to auscultation bilaterally Cardio regular rate, regular rhythm and no murmurs GI GI Narrative: Patient reports right upper quadrant tenderness to palpation there is no guarding or rebound. I do not appreciate any skin rash in the area. Normal active bowel sounds. Auscultation: normoactive bowel sounds Palpation: soft Back/Spine no CVA tenderness and normal ROM Extremity normal to inspection General Extremety ED: Negative for edema General Extremity: Negative for edema Neuro oriented x3 and CN's II-XII intact bilaterally Sensorium / Orientation: alert Motor Exam: strength 5/5 throughout Psych mental status grossly normal Mood & Affect: Negative for depressed or tearful Skin no rashes or lesions noted and no wounds MDM MDM MDM Narrative Medical decision making narrative: Differential diagnosis would include but not limited to hematuria biliary obstruction UTI pyelonephritis acute hepatitis The patient's ED visit from last night was reviewed. White count today is normalized at 10.3 with a normal differential hemoglobin 12.1 platelet count of 347. LFTs continue to be normal. Urinalysis with no overt infection normal creatinine. Patient will be discharged home with instructions to follow-up with her doctor as scheduled. I do not see the need for emergent repeat imaging at this time. History & Record Review Discussion w/independent historian: Patient Lab Data Attestation: I reviewed the patient's lab results. Labs: Laboratory Results - last 24 hr 08/30/24 12:11 WBC 10.3 RBC 4.72 Hgb 12.1 Hct 38.1 MCV 80.7 L MCH 25.6 L MCHC 31.8 L RDW Std Deviation 42.8 RDW Coeff of Anjana 14.7 H Plt Count 347 MPV 10.1 Immature Gran % (Auto) 0.300 Neut % (Auto) 63.3 Lymph % (Auto) 29.9 [place] % (Auto) 4.8 Eos % (Auto) 1.1 Baso % (Auto) 0.6 Absolute Neuts (auto) 6.5 Absolute Lymphs (auto) 3.08 Nucleated RBC % 0 Sodium 137 Potassium 3.7 Chloride 109 H Carbon Dioxide 23.0 Anion Gap 5 BUN 11 Creatinine 0.63 Estim Creat Clear Calc 129.49 Est GFR (MDRD) Af Amer 140 Est GFR (MDRD) Non-Af 115 BUN/Creatinine Ratio 17.5 Glucose 139 H Calcium 8.8 Total Bilirubin 0.20 Direct Bilirubin < 0.05 AST 13 L ALT 24 Alkaline Phosphatase 88 Total Protein 6.9 Albumin 3.5 Globulin 3.4 Lipase 25 Urine Color Yellow Urine Clarity Sl. Cloudy Urine pH 6.0 Ur Specific [place] 1.020 Urine Protein 15 H Urine Glucose (UA) Normal Urine Ketones Negative Urine Occult Blood Negative Urine Nitrite Negative Urine Bilirubin Negative Urine Urobilinogen Normal Ur Leukocyte Esterase Negative Urine RBC 0 SEEN Urine WBC 0 SEEN Ur Squamous Epith Cells 5-10 SEEN Urine Bacteria 0 SEEN Urine Mucus 0 SEEN Discharge Plan Triage Chief Complaint: Flank Pain ED Provider: Tadeo Skelton Dx/Rx/DC Orders Clinical Impression: Acute flank pain, Nausea Instructions: ED Flank Pain, Uncertain Cause Prescriptions: No Action prazosin 2 mg capsule 3 mg PO DAILY Patient Comments: TAKE 1 CAPSULE BY MOUTH DAILY AT BEDTIME. TAKE WITH 1 MG DOSE. promethazine 25 mg tablet 25 mg PO TID PRN (Reason: nausea and vomiting) Qty: 14 0RF ondansetron [ondansetron] 4 mg tablet,disintegrating 4 mg PO Q8H PRN PRN (Reason: Nausea) Qty: 10 0RF Primary Care Provider: Azar Smith Referrals: Azar Smith MD [Primary Care Provider] - Keep Trav appointment Print Language: Mauritanian Disposition Disposition: Home, Self Care Discharge Date/Time: 08/30/24 13:27
[2024-08-30 12:23] LABS: Bacteria 0 SEEN /hpf (None Seen); Mucous, Urine 0 SEEN /hpf (<or=2+); Red Blood Cells-Urine 0 SEEN /hpf (0-5); White Blood Cells 0 SEEN /hpf (0-5)
[2024-08-30 12:36] LABS: Color, Urine Yellow (Yellow); Glucose, Dipstick Normal (Normal); Ketone-Dipstick Negative (Negative); Leukocyte Esterase-Dipstick Negative /ul (Negative); Nitrite-Dipstick Negative (Negative); Occult Blood-Urine Negative /ul (Negative); Protein-Dipstick 15 mg/dl (Negative); Urine Bilirubin Dipstick Negative (Negative); Urine Clarity Sl. Cloudy (Clear); Urine Urobilinogen Normal (Normal)
[2024-08-30 12:37] LABS: Absolute Lymphocyte Count 3.08 X10^3/uL (0.83-4.51); Absolute Neutrophil Count 6.5 X10^3/uL (2.0-7.7); Basophil# 0.06 X10^3/uL; Basophil% 0.6 % (0-1); Eosinophil# 0.11 X10^3/uL; Eosinophils% 1.1 % (0-5); Hematocrit 38.1 % (37-47); Hemoglobin 12.1 g/dL (12.0-15.0); Lymphocyte # 3.08 X10^3/ul (0.83-4.51); Lymphocyte % 29.9 % (19-41); Mean Corp Hgb Conc 31.8 g/dL (32-36); Mean Corpuscular Hgb 25.6 pg (27.0-32.0); Mean Corpuscular Volume 80.7 fL (81-99); Mean Platelet Vol. 10.1 fl (6.2-12.0); Monocyte# 0.49 X10^3/uL; Monocyte% 4.8 % (0-10); NRBC Flagged by Analyzer 0 % (0-5); Neutrophil # 6.53 X10^3/uL (2.7-7.7); Neutrophil % 63.3 % (47-70); Platelet Count 347 K/mm3 (150-450); RBC Distribution Width CV 14.7 % (11.6-14.6); RBC Distribution Width SD 42.8 fl (35.1-43.9); Red Blood Count 4.72 M/mm3 (4.2-5.4); White Blood Count 10.3 K/mm3 (4.4-11.0)
[2024-08-30 12:56] LABS: Squamous Epithelial Cells - UA 5-10 SEEN /hpf (5-10)
[2024-08-30 13:08] LABS: AST(SGOT) 13 U/L (15-37); Alanine Aminotransfer ALT/SGPT 24 U/L (13-56); Albumin, Serum 3.5 g/dL (3.2-5.0); Alkaline Phosphatase 88 U/L (45-117); Anion Gap 5 (5-15); BUN 11 mg/dL (7-18); BUN/Creat Ratio 17.5 RATIO (10-20); Bilirubin, Direct < 0.05 mg/dL (0.00-0.30); Calcium,Total 8.8 mg/dL (8.5-10.1); Chloride 109 mmol/L (98-107); Creatinine, Serum 0.63 mg/dL (0.55-1.02); EST Glomerular Filtration Rate 115 mL/min (>60); Est Glom Filt Rate - Afr Amer 140 mL/min (>60); Estimated Creatinine Clearance 129.49 ml/min; Globulin 3.4 g/dL (2.2-4.2); Glucose 139 mg/dL (74-106); Lipase 25 U/L (13-75); Potassium 3.7 mmol/L (3.5-5.1); Protein, Total 6.9 g/dL (6.4-8.2); Sodium Level 137 mmol/L (136-145)
[2024-08-30 13:26] VITALS: BP 135/87; PULSE 103; RESP 18; TEMP 36.6; O2SAT 97
== END 2024-08-30 13:27 | disposition home or self-care (01) ==
PROVIDERS: Emergency Provider Emergency Medicine; PCP Family Medicine; Visit Provider Emergency Medicine
DX: R10.9 Unspecified abdominal pain (principal); R11.0 Nausea; K21.9 Gastro-esophageal reflux disease without esophagitis; J45.909 Unspecified asthma, uncomplicated; F17.290 Nicotine dependence, other tobacco product, uncomplicated
CPT/HCPCS: 80048; 80076; 81001; 83690; 85025; 99282